=== PATIENT | female | born 2000 | race Caucasian/White ===

== ENCOUNTER 2018-05-13 14:16 | Emergency (ER) | payer MEDICAID ==
--- NOTE | 2018-05-13 14:52 | EDM.PDOC ---
ED HPI GENERAL MEDICAL PROBLEM - General Chief Complaint: ENT Problem Stated Complaint: SPOKE TO NURSE Time Seen by Provider: 05/13/18 14:48 Source of Information: Reports: Patient History Limitations: Reports: No Limitations - History of Present Illness INITIAL COMMENTS - FREE TEXT/NARRATIVE: HISTORY AND PHYSICAL: History of present illness: Patient is a 17-year-old female here with complaint of sore throat 1 week. She states she's felt pus on the right tonsil is having pain with swallowing but is able to swallow secretions and no difficulty breathing or trismus. She denies nausea, vomiting, diarrhea. She does have an appointment at [facility] tomorrow. Review of systems: As per history of present illness and below otherwise all systems reviewed and negative. Past medical history: As per history of present illness and as reviewed below otherwise noncontributory. Surgical history: As per history of present illness and as reviewed below otherwise noncontributory. Social history: No reported history of drug or alcohol abuse. Family history: As per history of present illness and as reviewed below otherwise noncontributory. Physical exam: General: Patient sitting comfortably in no acute distress and nontoxic appearing HEENT: Right tonsils is 2+ and erythematous with exudate. No uvular deviation. Tender anterior cervical LAD bilaterally. Atraumatic, normocephalic, pupils reactive, negative for conjunctival pallor or scleral icterus, mucous membranes moist, throat clear, neck supple, nontender, trachea midline. No meningeal signs. Lungs: Clear to auscultation, breath sounds equal bilaterally, chest nontender. Heart: S1S2, regular, negative for clicks, rubs, or overt murmur. Abdomen: Soft, nondistended, nontender. Negative for masses or hepatosplenomegaly. Negative for costovertebral tenderness. Pelvis: Stable nontender. Genitourinary: Deferred. Rectal: Deferred. Extremities: Atraumatic, negative for cords or calf pain. Neurovascular unremarkable. Neuro: Awake, alert, oriented. Cranial nerves II through XII unremarkable. Cerebellum unremarkable. Motor and sensory unremarkable throughout. Exam nonfocal. Notes: Diagnostics: Rapid strep Therapeutics: No Prescriptions: Penicillin Impression: Acute tonsillits Plan: 1. Take antibiotic as instructed 2. Follow up with primary care provider 3. Return to ED as needed as discussed Definitive disposition and diagnosis as appropriate pending reevaluation and review of above. throat Pain Score (Numeric/FACES): 9 - Related Data Allergies Allergy/AdvReac Type Severity Reaction Status Date / Time No Known Allergies Allergy Verified 05/13/18 14:29 Home Meds: Home Meds . [No Known Home Meds] 05/13/18 [History] Penicillin V Potassium [Veetids] 500 mg PO TID 10 Days #30 tab 05/13/18 [Rx] Past Medical History - Past Health History Medical/Surgical History: Denies Medical/Surgical History Social & Family History - Family History Family Medical History: Noncontributory - Tobacco Use Smoking Status *Q: Never Smoker - Recreational Drug Use Recreational Drug Use: No ED ROS ENT - Review of Systems Review Of Systems: ROS reveals no pertinent complaints other than HPI. ED EXAM, ENT - Physical Exam Exam: See Below (see dictation) Course - Vital Signs Last Recorded V/S: Last Vital Signs Temp 100.6 F 05/13/18 14:29 Pulse 117 H 05/13/18 14:29 Resp 16 05/13/18 14:29 BP 116/71 05/13/18 14:29 Pulse Ox 100 05/13/18 14:29 - Orders/Labs/Meds Orders: Active Orders 24 hr Category Date Time Status STREP SCRN A RAPID W CULT CONF [RM] Stat Lab 05/13/18 14:19 Ordered Departure - Departure Time of Disposition: 14:51 Disposition: Home, Self-Care 01 Condition: Good Clinical Impression: Acute tonsillitis - Discharge Information Prescriptions: Penicillin V Potassium [Veetids] 500 mg PO TID 10 Days #30 tab Forms: ED Department Discharge Additional Instructions: The following information is given to patients seen in the emergency department who are being discharged to home. This information is to outline your options for follow-up care. We provide all patients seen in our emergency department with a follow-up referral. The need for follow-up, as well as the timing and circumstances, are variable depending upon the specifics of your emergency department visit. If you don't have a primary care physician on staff, we will provide you with a referral. We always advise you to contact your personal physician following an emergency department visit to inform them of the circumstance of the visit and for follow-up with them and/or the need for any referrals to a consulting specialist. The emergency department will also refer you to a specialist when appropriate. This referral assures that you have the opportunity for follow-up care with a specialist. All of these measure are taken in an effort to provide you with optimal care, which includes your follow-up. Under all circumstances we always encourage you to contact your private physician who remains a resource for coordinating your care. When calling for follow-up care, please make the office aware that this follow-up is from your recent emergency room visit. If for any reason you are refused follow-up, please contact the [facility] Emergency Department at and asked to speak to the emergency department charge nurse. [facility] [address] [place] [id number] [facility] [address] [place] [id number] 1. Take medication as instructed 2. Follow up with primary care provider 3. Return to ED as needed as discussed - My Orders Last 24 Hours: My Active Orders 05/13/18 14:19 STREP SCRN A RAPID W CULT CONF [RM] Stat - Assessment/Plan Last 24 Hours: My Active Orders 05/13/18 14:19 STREP SCRN A RAPID W CULT CONF [RM] Stat
== END 2018-05-13 15:05 | disposition home or self-care (01) ==
LOC: MW.ED 14:16
DX: J03.90 Acute tonsillitis, unspecified (principal)
CPT/HCPCS: 87081; 87880-QW; 99283

== ENCOUNTER 2019-01-12 18:39 | Inpatient (IN) | payer OTHER ==
[2019-01-12] MEDS ORDERED: Ondansetron 4 MG/2 ML SDV IVPUSH ONE (19:00)
[2019-01-12] MEDS ORDERED: Sodium Chloride 0.9% 1,000 ML IV ONE ×2 (19:01→21:08)
--- NOTE | 2019-01-12 19:15 | EDM.PDOC ---
ED HPI GENERAL MEDICAL PROBLEM - General Chief Complaint: ENT Problem Stated Complaint: VOMMITING/FEVERS Time Seen by Provider: 01/12/19 18:41 Source of Information: Reports: Patient History Limitations: Reports: No Limitations - History of Present Illness INITIAL COMMENTS - FREE TEXT/NARRATIVE: HISTORY AND PHYSICAL: History of present illness: Patient is a 18-year-old female presents to the ED today with concern of multiple and various complaints. Patient states her main complaint today is she is having rectal bleeding and periumbilical abdominal pain that is worsened over the past 2-3 days. Patient states back in September she had a CT scan done in [place] and was told that she may or may not have ulcerative colitis. Patient states she did not follow-up with any primary care provider or any provider regarding this as "other things came up". Patient states that she has had rectal bleeding since September. Patient states she also feels dizzy when she stands up. Patient states that she also is concerned she may have a yeast infection or urinary tract infection as she is having some irritation/itching in her vagina. Patient also has had subjective fevers at home but she states she has not checked a temperature. Patient states she's also noticed a decrease in appetite but is eating and drinking some. Patient states she is nauseous but she has not vomited. Patient states there is a chance that she could be . Patient denies any other health history or any other symptoms or concerns. Patient denies chest pain, shortness of breath, or cough. Denies headache, neck stiff ness, change in vision, syncope, or near syncope. Denies vomiting, diarrhea, constipation, or dysuria. Has not noted any blood in urine. Review of systems: As per history of present illness and below otherwise all systems reviewed and negative. Past medical history: As per history of present illness and as reviewed below otherwise noncontributory. Surgical history: As per history of present illness and as reviewed below otherwise noncontributory. Social history: See social history for further information Family history: As per history of present illness and as reviewed below otherwise noncontributory. Physical exam: General: Patient is alert, oriented, and in no acute distress. Patient sitting comfortably on exam table but is pale appearing. HEENT: Atraumatic, normocephalic, pupils equal and reactive bilaterally, negative for conjunctival pallor or scleral icterus, mucous membranes moist, TMs normal bilaterally, throat clear, neck supple, nontender, trachea midline. No drooling or trismus noted. No meningeal signs. No hot potato voice noted. Lungs: Clear to auscultation, breath sounds equal bilaterally, chest nontender. Heart: S1S2, regular rate and rhythm without overt murmur Abdomen: Soft, nondistended. Moderate pain with palpation of the periumbilical area without guarding or rebound. Negative for masses or hepatosplenomegaly. Negative for costovertebral tenderness. Pelvis: Stable nontender. Genitourinary: External genitalia is grossly unremarkable. There is a moderate amount of dry/cottage cheese-like discharge in the vaginal vault. Negative cervical motion tenderness. Uterus is approximately 6 weeks in size and nontender on palpation. Rectal: Rectal tone is intact. Hemoccult positive. No obvious hemorrhoids, fissures, masses, or lesions of the rectum. Skin: Intact, warm, dry. No lesions or rashes noted. Extremities: Atraumatic, negative for cords or calf pain. Neurovascular unremarkable. Neuro: Awake, alert, oriented. Cranial nerves II through XII unremarkable. Cerebellum unremarkable. Motor and sensory unremarkable throughout. Exam nonfocal. Notes: Dr. Madrigal consulted on patient and will admit to inpatient. Voices understanding and is agreeable to plan of care. Denies any further questions or concerns at this time. Diagnostics: CBC, CMP, UA, EKG, Hemoccult, affirm, gonorrhea and Chlamydia, lipase, abdominal pelvic CT, influenza, strep, CXR Therapeutics: Saline, Zofran, Ciprofloxacin, Metronidazole Impression: Colitis Dehydration Hypokalemia Thrombocytosis Bacterial Vaginosis Yeast vaginitis Plan: 1. Admit to inpatient to Dr. Madrigal. Definitive disposition and diagnosis as appropriate pending reevaluation and review of above. throat Pain Score (Numeric/FACES): 4 - Related Data Allergies Allergy/AdvReac Type Severity Reaction Status Date / Time No Known Allergies Allergy Verified 01/12/19 18:50 Home Meds: Home Meds . [No Known Home Meds] 05/13/18 [History] Past Medical History - Past Health History Medical/Surgical History: Denies Medical/Surgical History Social & Family History - Family History Family Medical History: Noncontributory - Tobacco Use Smoking Status *Q: Never Smoker - Recreational Drug Use Recreational Drug Use: No ED ROS GENERAL - Review of Systems Review Of Systems: ROS reveals no pertinent complaints other than HPI. ED EXAM, GENERAL - Physical Exam Exam: See Below (See dictation) Course - Vital Signs Last Recorded V/S: Last Vital Signs Temp 97.6 F 01/12/19 18:46 Pulse 128 H 01/12/19 20:46 Resp 18 01/12/19 20:46 BP 119/71 01/12/19 20:46 Pulse Ox 98 01/12/19 20:46 - Orders/Labs/Meds Orders: Active Orders 24 hr Category Date Time Status Admission Status [Patient Status] [ADT] Stat ADT 01/12/19 21:29 Ordered EKG Documentation Completion [RC] STAT Care 01/12/19 19:02 Active Hemoccult [Fecal Occult Blood Collection] [RC] Care 01/12/19 19:01 Active ASDIRECTED CDIFF TOX A+B [OP] Stat Lab 01/12/19 21:28 Ordered CHLAMYDIA AND GONORRHEA BY TMA Stat Lab 01/12/19 19:40 Received CULTURE STOOL + CAMPY+SHIGATOX [RM] Stat Lab 01/12/19 21:28 Ordered CULTURE STREP A CONFIRMATION [] Stat Lab 01/12/19 19:17 Results OVA & PARASITES BY IMMUNOASSAY [MREF] Stat Lab 01/12/19 21:28 Ordered STREP SCRN A RAPID W CULT CONF [] Stat Lab 01/12/19 19:17 Results Ciprofloxacin in D5W [Cipro in D5W 400 MG/200 ML] 400 Med 01/12/19 21:30 Ordered mg Premix Bag 1 bag IV Q12H Sodium Chloride 0.9% [Normal Saline] 1,000 ml Med 01/12/19 21:08 Active IV .Bolus metroNIDAZOLE/Normal Saline [Flagyl 500 MG in NS 100 ML Med 01/12/19 21:25 Ordered ] 500 mg Premix Bag 1 bag IV ONETIME Isolation [COMM] Stat Oth 01/12/19 21:29 Ordered Medication Orders Sodium Chloride (Normal Saline) 1,000 mls @ 999 mls/hr IV .Bolus ONE Stop: 01/12/19 22:08 Last Admin: 01/12/19 21:16 Dose: 999 mls/hr Ciprofloxacin/Dextrose 400 mg/ (Premix) 200 mls @ 200 mls/hr IV Q12H DONNIE Metronidazole 500 mg/ Premix 100 mls @ 100 mls/hr IV ONETIME ONE Stop: 01/12/19 22:24 Labs: Laboratory Tests 01/12/19 01/12/19 01/12/19 Range/Units 19:13 19:15 19:15 WBC 17.25 H (4.0-11.0) K/uL RBC 5.18 (4.30-5.90) M/uL Hgb 9.3 L (12.0-16.0) g/dL Hct 31.8 L (36.0-46.0) % MCV 61.4 L (80.0-98.0) fL MCH 18.0 L (27.0-32.0) pg MCHC 29.2 L (31.0-37.0) g/dL RDW Std Deviation 37.0 (28.0-62.0) fl RDW Coeff of Buck 17 H (11.0-15.0) % Plt Count 648 H (150-400) K/uL MPV 8.80 (7.40-12.00) fL Add Manual Diff YES Neutrophils % (Manual) 25 L (48.0-80.0) % Band Neutrophils % 31 % Lymphocytes % (Manual) 30 (16.0-40.0) % Monocytes % (Manual) 10 (0.0-15.0) % Eosinophils % (Manual) 4 (0.0-7.0) % Nucleated RBC % 0.0 /100WBC Absolute Seg Neuts 4.3 (1.4-5.7) Band Neutrophils # 5.3 Lymphocytes # (Manual) 5.2 H (0.6-2.4) Monocytes # (Manual) 1.7 H (0.0-0.8) Eosinophils # (Manual) 0.7 (0.0-0.7) Nucleated RBCs # 0 K/uL Sodium 131 L (136-145) mmol/L Potassium 2.9 L (3.5-5.1) mmol/L Chloride 94 L (98-107) mmol/L Carbon Dioxide 21.7 (21.0-32.0) mmol/L BUN 10 (7.0-18.0) mg/dL Creatinine 1.1 H (0.6-1.0) mg/dL Est Cr Clr Drug Dosing 69.55 mL/min Estimated GFR (MDRD) > 60.0 ml/min Glucose 98 (74-106) mg/dL Calcium 9.2 (8.5-10.1) mg/dL Total Bilirubin 0.4 (0.2-1.0) mg/dL AST 13 L (15-37) IU/L ALT 13 L (14-63) IU/L Alkaline Phosphatase 76 (46-116) U/L Total Protein 9.3 H (6.4-8.2) g/dL Albumin 3.9 (3.4-5.0) g/dL Globulin 5.4 H (2.6-4.0) g/dL Albumin/Globulin Ratio 0.7 L (0.9-1.6) Lipase 38 L (73-393) U/L Urine Color Urine Appearance Urine pH (5.0-8.0) Ur Specific [place] (1.001-1.035) Urine Protein (NEGATIVE) mg/dL Urine Glucose (UA) (NEGATIVE) mg/dL Urine Ketones (NEGATIVE) mg/dL Urine Occult Blood (NEGATIVE) Urine Nitrite (NEGATIVE) Urine Bilirubin (NEGATIVE) Urine Ictotest Urine Urobilinogen (<2.0) EU/dL Ur Leukocyte Esterase (NEGATIVE) Urine RBC (0-2/HPF) Urine WBC (0-5/HPF) Ur Epithelial Cells (NONE-FEW) Urine Bacteria (NEGATIVE) Urine Mucus (NONE-MOD) Urine Yeast Urine HCG, Qual NEGATIVE (NEGATIVE) Rowena species DNA (NEGATIVE) Gardnerella DNA Probe (NEGATIVE) Trichomonas DNA Probe (NEGATIVE) 01/12/19 01/12/19 Range/Units 19:40 19:40 WBC (4.0-11.0) K/uL RBC (4.30-5.90) M/uL Hgb (12.0-16.0) g/dL Hct (36.0-46.0) % MCV (80.0-98.0) fL MCH (27.0-32.0) pg MCHC (31.0-37.0) g/dL RDW Std Deviation (28.0-62.0) fl RDW Coeff of Buck (11.0-15.0) % Plt Count (150-400) K/uL MPV (7.40-12.00) fL Add Manual Diff Neutrophils % (Manual) (48.0-80.0) % Band Neutrophils % % Lymphocytes % (Manual) (16.0-40.0) % Monocytes % (Manual) (0.0-15.0) % Eosinophils % (Manual) (0.0-7.0) % Nucleated RBC % /100WBC Absolute Seg Neuts (1.4-5.7) Band Neutrophils # Lymphocytes # (Manual) (0.6-2.4) Monocytes # (Manual) (0.0-0.8) Eosinophils # (Manual) (0.0-0.7) Nucleated RBCs # K/uL Sodium (136-145) mmol/L Potassium (3.5-5.1) mmol/L Chloride (98-107) mmol/L Carbon Dioxide (21.0-32.0) mmol/L BUN (7.0-18.0) mg/dL Creatinine (0.6-1.0) mg/dL Est Cr Clr Drug Dosing mL/min Estimated GFR (MDRD) ml/min Glucose (74-106) mg/dL Calcium (8.5-10.1) mg/dL Total Bilirubin (0.2-1.0) mg/dL AST (15-37) IU/L ALT (14-63) IU/L Alkaline Phosphatase (46-116) U/L Total Protein (6.4-8.2) g/dL Albumin (3.4-5.0) g/dL Globulin (2.6-4.0) g/dL Albumin/Globulin Ratio (0.9-1.6) Lipase (73-393) U/L Urine Color YELLOW Urine Appearance SLT CLOUDY Urine pH 6.0 (5.0-8.0) Ur Specific [place] >= 1.030 (1.001-1.035) Urine Protein 100 H (NEGATIVE) mg/dL Urine Glucose (UA) NEGATIVE (NEGATIVE) mg/dL Urine Ketones >=80 (NEGATIVE) mg/dL Urine Occult Blood MODERATE H (NEGATIVE) Urine Nitrite NEGATIVE (NEGATIVE) Urine Bilirubin MODERATE H (NEGATIVE) Urine Ictotest NEGATIVE Urine Urobilinogen 0.2 (<2.0) EU/dL Ur Leukocyte Esterase NEGATIVE (NEGATIVE) Urine RBC 2-4 (0-2/HPF) Urine WBC 3-6 (0-5/HPF) Ur Epithelial Cells MODERATE (NONE-FEW) Urine Bacteria FEW (NEGATIVE) Urine Mucus MODERATE (NONE-MOD) Urine Yeast RARE Urine HCG, Qual (NEGATIVE) Rowena species DNA POSITIVE H (NEGATIVE) Gardnerella DNA Probe POSITIVE H (NEGATIVE) Trichomonas DNA Probe NEGATIVE (NEGATIVE) Meds: Medications Generic Name Dose Route Start Last Admin Trade Name Freq PRN Reason Stop Dose Admin Sodium Chloride 1,000 mls @ 999 mls/hr 01/12/19 21:08 01/12/19 21:16 Normal Saline IV 01/12/19 22:08 999 mls/hr .Bolus ONE Administration Ciprofloxacin/Dextrose 400 mg/ 200 mls @ 200 mls/hr 01/12/19 21:30 Premix IV Q12H DONNIE Metronidazole 500 mg/ Premix 100 mls @ 100 mls/hr 01/12/19 21:25 IV 01/12/19 22:24 ONETIME ONE Discontinued Medications Generic Name Dose Route Start Last Admin Trade Name Freq PRN Reason Stop Dose Admin Sodium Chloride 1,000 mls @ 999 mls/hr 01/12/19 19:01 01/12/19 19:23 Normal Saline IV 01/12/19 20:01 999 mls/hr STAT ONE Administration Iopamidol 100 ml 01/12/19 20:36 01/12/19 20:38 Isovue-370 (76%) IVPUSH 01/12/19 20:37 100 ml ONETIME ONE Administration Ondansetron HCl 4 mg 01/12/19 19:00 01/12/19 19:23 Zofran IVPUSH 01/12/19 19:01 4 mg ONETIME ONE Administration Departure - Departure Time of Disposition: 21:45 Disposition: Admitted As Inpatient 64 Clinical Impression: Colitis, Dehydration, Hypokalemia, Thrombocytosis, Bacterial vaginosis, Yeast vaginitis - Discharge Information Referrals: PCP,None [Primary Care Provider] - Forms: ED Department Discharge - My Orders Last 24 Hours: My Active Orders 01/12/19 19:01 Hemoccult [Fecal Occult Blood Collection] [] ASDIRECTED 01/12/19 19:02 EKG Documentation Completion [] STAT 01/12/19 19:17 CULTURE STREP A CONFIRMATION [RM] Stat STREP SCRN A RAPID W CULT CONF [] Stat 01/12/19 19:40 CHLAMYDIA AND GONORRHEA BY TMA Stat 01/12/19 21:08 Sodium Chloride 0.9% [Normal Saline] 1,000 ml IV .Bolus 01/12/19 21:25 metroNIDAZOLE/Normal Saline [Flagyl 500 MG in NS 100 ML] 500 mg Premix Bag 1 bag IV ONETIME 01/12/19 21:28 CDIFF TOX A+B [OP] Stat CULTURE STOOL + CAMPY+SHIGATOX [RM] Stat OVA & PARASITES BY IMMUNOASSAY [MREF] Stat 01/12/19 21:29 Admission Status [Patient Status] [ADT] Stat Isolation [COMM] Stat 01/12/19 21:30 Ciprofloxacin in D5W [Cipro in D5W 400 MG/200 ML] 400 mg Premix Bag 1 bag IV Q12H - Assessment/Plan Last 24 Hours: My Active Orders 01/12/19 19:01 Hemoccult [Fecal Occult Blood Collection] [RC] ASDIRECTED 01/12/19 19:02 EKG Documentation Completion [RC] STAT 01/12/19 19:17 CULTURE STREP A CONFIRMATION [RM] Stat STREP SCRN A RAPID W CULT CONF [RM] Stat 01/12/19 19:40 CHLAMYDIA AND GONORRHEA BY TMA Stat 01/12/19 21:08 Sodium Chloride 0.9% [Normal Saline] 1,000 ml IV .Bolus 01/12/19 21:25 metroNIDAZOLE/Normal Saline [Flagyl 500 MG in NS 100 ML] 500 mg Premix Bag 1 bag IV ONETIME 01/12/19 21:28 CDIFF TOX A+B [OP] Stat CULTURE STOOL + CAMPY+SHIGATOX [RM] Stat OVA & PARASITES BY IMMUNOASSAY [MREF] Stat 01/12/19 21:29 Admission Status [Patient Status] [ADT] Stat Isolation [COMM] Stat 01/12/19 21:30 Ciprofloxacin in D5W [Cipro in D5W 400 MG/200 ML] 400 mg Premix Bag 1 bag IV Q12H
[2019-01-12 19:41] LABS: BLOOD UREA NITROGEN,BUN 10 mg/dL (7.0-18.0); CARBON DIOXIDE,CO2 21.7 mmol/L (21.0-32.0); CHLORIDE,CL 94 mmol/L (98-107); GLUCOSE RANDOM 98 mg/dL (74-106); LIPASE 38 U/L (73-393); POTASSIUM,K 2.9 mmol/L (3.5-5.1); SODIUM,NA 131 mmol/L (136-145)
[2019-01-12] MEDS ORDERED: Iopamidol 755 Mg/ML 100 ML Bottle IVPUSH ONE (20:36)
--- NOTE | 2019-01-12 20:39 | CR ---
HISTORY: Cough. TECHNIQUE: Two-view chest. COMPARISON: None. FINDINGS: Lungs are clear. No pleural effusion or pneumothorax. Pulmonary vasculature and cardiomediastinal silhouette are normal. IMPRESSION: No cardiopulmonary abnormality. Dictated by Ravindra Fay MD @ Jan 12 2019 8:33PM Signed by Dr. Ravindra Fay @ Jan 12 2019 8:37PM
--- NOTE | 2019-01-12 21:01 | CT ---
HISTORY: Periumbilical pain. Rectal bleeding. TECHNIQUE: CT abdomen and pelvis with IV contrast. COMPARISON: None. FINDINGS: Abdomen: No liver lesions. No bile duct dilation. No pancreatic mass or pancreatic duct dilation. No spleen lesions. No adrenal nodules. Kidneys enhance symmetrically. No renal mass. No hydronephrosis. Wall thickening of the sigmoid colon and rectum with prominent inner wall enhancement. Mild wall thickening of the remainder of the colon. Wall thickening of the distal ileum most prominent just proximal to the terminal ileum. No dilated bowel. Appendix is normal. No free fluid or fluid collection. No free intraperitoneal gas. No lymphadenopathy. Abdominal aorta is normal caliber. Pelvis: No lymphadenopathy. Musculoskeletal: Unremarkable. Lower chest: Unremarkable. IMPRESSION: Colitis and ileitis. Primary considerations include inflammatory bowel disease or infectious colitis and enteritis. Please note that all CT scans at this facility use dose modulation, iterative reconstruction, and/or weight-based dosing when appropriate to reduce radiation dose to as low as reasonably achievable. Dictated by Ravindra Fay MD @ Jan 12 2019 8:52PM Signed by Dr. Ravindra Fay @ Jan 12 2019 8:59PM
[2019-01-12] MEDS ORDERED: metroNIDAZOLE/Normal Saline 500 MG in Premix Bag 1 BAG IV ONE (21:25)
[2019-01-12] MEDS ORDERED: Albuterol/Ipratropium 3.0-0.5 MG/3 ML Neb Soln NEB PRN (22:06)
[2019-01-12] MEDS ORDERED: Sodium Chloride 0.9% 1,000 ML IV SCH (22:15)
[2019-01-12] MEDS ORDERED: Morphine 2 MG/ML Syringe IVPUSH PRN (22:15)
[2019-01-12] MEDS ORDERED: Potassium Chloride Riders 40 MEQ in Premix Bag 1 BAG IV ONE (22:20)
[2019-01-12] MEDS: Pantoprazole 40 MG Vial IV SCH (22:31)
[2019-01-12] MEDS: Ciprofloxacin in D5W 400 MG in Premix Bag 1 BAG IV SCH ×2 (22:48)
[2019-01-12] MEDS ORDERED: Ondansetron 4 MG/2 ML SDV IVPUSH PRN (23:23)
[2019-01-13] MEDS ORDERED: Sodium Chloride 0.9% 1,000 ML IV SCH
[2019-01-13] MEDS ORDERED: Dextrose 5%-0.9% NaCl 1,000 ML IV SCH (04:15)
[2019-01-13] MEDS ORDERED: Acetaminophen 325 MG Tab PO PRN (05:00)
[2019-01-13] MEDS ORDERED: Sodium Chloride 0.9% 1,000 ML IV ONE ×2 (06:18→10:22)
[2019-01-13 06:33] LABS: BLOOD UREA NITROGEN,BUN 6 mg/dL (7.0-18.0); CHLORIDE,CL 104 mmol/L (98-107); GLUCOSE RANDOM 95 mg/dL (74-106); POTASSIUM,K 3.6 mmol/L (3.5-5.1); SODIUM,NA 135 mmol/L (136-145)
[2019-01-13] MEDS ORDERED: 50% Dextrose in Water 50 ML Syringe IVPUSH ONE (06:50)
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
[2019-01-13] MEDS ORDERED: Magnesium Sulfate/Water 4 GM in Premix Bag 1 BAG IV ONE (07:28)
[2019-01-13] MEDS ORDERED: Iopamidol 755 MG/ML 500 ML Multipack Bottle IVPUSH STA (08:16)
--- NOTE | 2019-01-13 08:45 | CT ---
INDICATION: Periumbilical rectal bleeding; dropping hemoglobin; rule out active hemorrhage. COMPARISON: CT abdomen and pelvis with intravenous contrast January 12, 2019. TECHNIQUE: CT angio abdomen and pelvis with intravenous contrast during arterial and venous phase imaging; coronal and sagittal reformats. FINDINGS: The abdominal aorta and the visceral branches are well delineated and fail to reveal any abnormalities. No evidence of active extravasation. Diffuse edema involving the entire colon including the rectosigmoid; rule out diffuse colitis. No pneumoperitoneum or intestinal obstruction. Splenic vein, superior mesenteric vein and the portal vein are unremarkable. No focal hepatic or splenic pathology. No pancreatic pathology. Gallbladder is unremarkable. No adrenal pathology. No kidney stones or obstructive uropathy. Normal appendix. IMPRESSION: 1. Diffuse colitis. 2. No evidence of active extravasation of contrast. 3. Splenic vein, superior mesenteric vein and the portal vein are unremarkable. Please note that all CT scans at this facility use dose modulation, iterative reconstruction, and/or weight-based dosing when appropriate to reduce radiation dose to as low as reasonably achievable. Dictated by Simon Reyes MD @ Jan 13 2019 8:21AM Signed by Dr. Simon Reyes @ Jan 13 2019 8:44AM
--- NOTE | 2019-01-13 08:48 | PCM.SN ---
- Free Text/Narrative Note: pt seen, chart reviewed; gib, 2 large bore iv access, 18 +gauge, protonix, h/h q 8, transfuse to 10; no anticoag meds; strict i/o monitor urine output, will follow pt gume you, await cta results; [id number]
[2019-01-13] MEDS: Pantoprazole 40 MG Vial IV SCH ×2 (09:18→21:26)
[2019-01-13] MEDS ORDERED: FLU Vacc QS2019-20(6MOS+)/PF 60 MCG/0.5 ML SYRINGE IM ONE (10:00)
--- NOTE | 2019-01-13 10:00 | PCM.SN ---
- Free Text/Narrative Note: CTA -ve; treat colitis; tentatively schedule egd on sunday; no plan for colonoscopy during highly inflammatory state; colonoscopy 3 - 4 wks; 18 yrs old , diffuse colitis, would benefit from gi referal; transfuse to keep h/h > 10. will follow pt w you
[2019-01-13] MEDS: Ciprofloxacin in D5W 400 MG in Premix Bag 1 BAG IV SCH ×4 (10:57→21:27)
[2019-01-13] MEDS: metroNIDAZOLE/Normal Saline 500 MG in Premix Bag 1 BAG IV SCH ×2 (11:53→19:57)
[2019-01-13] MEDS: methylPREDNISolone Sodium Succinate 40 MG/1 ML SDV IVPUSH SCH (19:53)
[2019-01-13] MEDS: Sodium Chloride 0.9% 1,000 ML IV SCH (22:38)
--- NOTE | 2019-01-14 00:29 | PN ---
[facility] Physician - Brief Progress [id number]/29/2019 00:24[facility] Simin Tomlin, [place] - MWN (ROYA) - MWN EFREN HARRISDate of Service 01/14/2019 00:24HPI/Event s of Note Case discussed with hospitalist. 18 year old F with previous IBD but not on meds currently , admitted with rectal bleeding and awaiting scope by surgery. Had been anemic and was transfused PRB Cs x 3.Recs include: hemodynamic monitoring, supplemental O2 PRN, GI and DVT prophylaxis, abx/steroid s, surgery eval for endoscopy, monitor for bleeding, transfuse to maintain H+H > 7/21, replace lytes as needed, glycemic monitoring, pain control.Interventions Minor-Communication with other healthcare providers and/or family
[2019-01-14] MEDS: metroNIDAZOLE/Normal Saline 500 MG in Premix Bag 1 BAG IV SCH ×3 (03:10→19:15)
[2019-01-14] MEDS: methylPREDNISolone Sodium Succinate 40 MG/1 ML SDV IVPUSH SCH ×3 (03:10→20:33)
[2019-01-14 06:41] LABS: BLOOD UREA NITROGEN,BUN 5 mg/dL (7.0-18.0); CARBON DIOXIDE,CO2 18.6 mmol/L (21.0-32.0); CHLORIDE,CL 107 mmol/L (98-107); GLUCOSE RANDOM 92 mg/dL (74-106); POTASSIUM,K 4.1 mmol/L (3.5-5.1); SODIUM,NA 138 mmol/L (136-145)
[2019-01-14] MEDS: Sodium Chloride 0.9% 1,000 ML IV SCH ×2 (07:32→17:31)
--- NOTE | 2019-01-14 09:04 | CONS ---
DATE OF CONSULTATION: DATE OF : 2000 PRIMARY CARE PHYSICIAN: None PCP REASON FOR CONSULTATION: Consult called from the hospitalist. Concerning question is GI bleeding. HISTORY OF PRESENT ILLNESS: The patient is a 18-year-old young lady complaining of 3-1/2 days of bright red blood per rectum. Denied shortness of breath. Denied PEREZ. Denied chest pain. Denied any pain whatsoever. The patient remarked that her stool was normal color until 3-1/2 days ago and turned bright red. Denied black tarry stool. The patient also remarked that it had happened about 3 months ago out of town in [place], and the situation is not clear. She did not stay in the hospital. She somehow was told she had colitis, and she did not follow through. PAST MEDICAL HISTORY: Significant for no diabetes, MT, CVA, hypertension. PAST SURGICAL HISTORY: No abdominal surgery. No childbirth. ALLERGIES: Please refer to nursing for details. MEDICATION: Please refer to nursing for details. PHYSICAL EXAMINATION: VITAL SIGNS: Pulse rate is 121, blood pressure is 105/51, temperature is 98.7, respiratory rate is 22, saturating at 100% on room air. GENERAL: A very pleasant young lady, appropriate for her size, in no acute distress. HEENT: Normocephalic, atraumatic. Sclerae anicteric. LUNGS: Clear to auscultation. HEART: Regular rate and rhythm. ABDOMEN: Soft, nondistended. No pulsating tender midline abdominal structure. No surgical scar. No hernia. Reactive bowel sounds in all 4 quadrants. Nontender. LABORATORY DATA: Upon consultation white cell is 11.39, dropped from 17 upon admission; H and H are 9.3 upon admission, dropped to 5.8, hematocrit is 31.8, dropped to 20; platelets are 640,000 and dropped to 436,000. Potassium is 2.9, up to 3.6 the morning of consult. BUN is 6 and creatinine is 0.9. Glucose is 95. UA shows UTI with a lot of yeast infection. Positive for Rowena and Gardnerella from the UA. IMPRESSION: Gastrointestinal bleeding. Do not have black tarry stool like the lower gastrointestinal bleeding. We will start gastrointestinal bleeding protocol. Two large-bore IV access, 18-gauge and above. Strict in and out, monitor urine output, and transfuse the patient, as you are doing. With acute drop in blood, probably recommend some kind of workup, either CT angio versus tagged RBC, which is slightly more sensitive. We will follow up with you after the gastrointestinal protocol. Otherwise, transfuse as you are doing. We will follow the patient with you. As always, thank you for your kind referral. ALVERTO / MESSI /[id number]
[2019-01-14] MEDS: Pantoprazole 40 MG Vial IV SCH ×2 (09:06→21:28)
[2019-01-14] MEDS: Ciprofloxacin in D5W 400 MG in Premix Bag 1 BAG IV SCH ×4 (09:11→21:33)
[2019-01-14] MEDS ORDERED: Fluconazole 150 MG Tab PO ONE (09:16)
--- NOTE | 2019-01-14 09:17 | PN ---
SIOBHAN Physician - Brief Progress [id number]/29/2019 09:14[facility] Simin Tomlin, ROXANN - YOVANNY (ROYA) - LISAN EFREN HARRISDate of Service 01/14/2019 09:14HPI/Event s of Note Reviewed patient's case with RN. Patient to have EGD tomorrow 01/15/2019, hemoglobin is st able, and outpatient colonoscopy is ordered.Have ordered TSH and iron labs as the patient has a signi ficant absorption issue from her colitis and has been bleeding for several months. Patient's current MCV is 70.5.Of consideration is the patient's inability to absorb especially B12 vitamins etc. We w ill start the patient on liquid multivitamin when she is no longer n.p.o., consider IM B12 and supple mentation. If patient is low on iron would give the patient IV iron supplementation so that she can adequately absorb it well colitis is being controlled.Interventions Minor-Clinical assessment - order ing diagnostic tests, Communication with other healthcare providers and/or family, Routine modificati ons to care plan (e.g. PRN medications for pain, fever)
--- NOTE | 2019-01-14 11:02 | PCM.PN ---
- General Info Date of Service: 01/14/19 Subjective Update: 18 y/o female with suspected IBD and needing 3 units PRBCs due to severe blood loss. Now, hemodynamically stable. States she feels better. Denies any chest pain, dyspnea, abdominal pain. Denies any rectal bleeding. - Patient Data Vitals - Most Recent: Last Vital Signs Temp 36.2 C 01/14/19 08:00 Pulse 96 01/13/19 18:03 Resp 17 01/14/19 09:00 BP 107/72 01/14/19 09:00 Pulse Ox 100 01/14/19 09:00 Weight - Most Recent: 58.4 kg I&O - Last 24 Hours: Intake & Output 01/13/19 01/14/19 01/14/19 22:59 06:59 14:59 Intake Total 1581 920 Output Total 3100 1150 Balance -1519 -230 Lab Results Last 24 Hours: Laboratory Results - last 24 hr 01/13/19 01/13/19 01/13/19 Range/Units 03:58 04:55 06:13 WBC (4.0-11.0) K/uL RBC (4.30-5.90) M/uL Hgb (12.0-16.0) g/dL Hct (36.0-46.0) % MCV (80.0-98.0) fL MCH (27.0-32.0) pg MCHC (31.0-37.0) g/dL RDW Std Deviation (28.0-62.0) fl RDW Coeff of Buck (11.0-15.0) % Plt Count (150-400) K/uL MPV (7.40-12.00) fL Neut % (Auto) Lymph % (Auto) [place] % (Auto) Eos % (Auto) Baso % (Auto) Neut # (Auto) Lymph # (Auto) [place] # (Auto) Eos # (Auto) Baso # (Auto) Add Manual Diff Neutrophils % (Manual) (48.0-80.0) % Band Neutrophils % % Lymphocytes % (Manual) (16.0-40.0) % Monocytes % (Manual) (0.0-15.0) % Nucleated RBC % /100WBC Absolute Seg Neuts (1.4-5.7) Band Neutrophils # Lymphocytes # (Manual) (0.6-2.4) Monocytes # (Manual) (0.0-0.8) Nucleated RBCs # K/uL Hypochromasia Sodium (136-145) mmol/L Potassium (3.5-5.1) mmol/L Chloride (98-107) mmol/L Carbon Dioxide (21.0-32.0) mmol/L BUN (7.0-18.0) mg/dL Creatinine (0.6-1.0) mg/dL Est Cr Clr Drug Dosing mL/min Estimated GFR (MDRD) ml/min Glucose (74-106) mg/dL POC Glucose 65 88 90 (60-110) mg/dL Calcium (8.5-10.1) mg/dL Phosphorus (2.6-4.7) mg/dL Magnesium (1.8-2.4) mg/dL Iron (50-175) ug/dL TIBC (250-450) ug/dL % Saturation (20-55) % Total Bilirubin (0.2-1.0) mg/dL AST (15-37) IU/L ALT (14-63) IU/L Alkaline Phosphatase (46-116) U/L C-Reactive Protein (0.00-0.90) mg/dL Total Protein (6.4-8.2) g/dL Albumin (3.4-5.0) g/dL Globulin (2.6-4.0) g/dL Albumin/Globulin Ratio (0.9-1.6) Blood Type Antibody Screen Crossmatch 01/13/19 01/13/19 01/13/19 Range/Units 06:50 07:06 15:51 WBC (4.0-11.0) K/uL RBC (4.30-5.90) M/uL Hgb 9.1 L (12.0-16.0) g/dL Hct (36.0-46.0) % MCV (80.0-98.0) fL MCH (27.0-32.0) pg MCHC (31.0-37.0) g/dL RDW Std Deviation (28.0-62.0) fl RDW Coeff of Buck (11.0-15.0) % Plt Count (150-400) K/uL MPV (7.40-12.00) fL Neut % (Auto) Lymph % (Auto) [place] % (Auto) Eos % (Auto) Baso % (Auto) Neut # (Auto) Lymph # (Auto) [place] # (Auto) Eos # (Auto) Baso # (Auto) Add Manual Diff Neutrophils % (Manual) (48.0-80.0) % Band Neutrophils % % Lymphocytes % (Manual) (16.0-40.0) % Monocytes % (Manual) (0.0-15.0) % Nucleated RBC % /100WBC Absolute Seg Neuts (1.4-5.7) Band Neutrophils # Lymphocytes # (Manual) (0.6-2.4) Monocytes # (Manual) (0.0-0.8) Nucleated RBCs # K/uL Hypochromasia Sodium (136-145) mmol/L Potassium (3.5-5.1) mmol/L Chloride (98-107) mmol/L Carbon Dioxide (21.0-32.0) mmol/L BUN (7.0-18.0) mg/dL Creatinine (0.6-1.0) mg/dL Est Cr Clr Drug Dosing mL/min Estimated GFR (MDRD) ml/min Glucose (74-106) mg/dL POC Glucose 79 (60-110) mg/dL Calcium (8.5-10.1) mg/dL Phosphorus (2.6-4.7) mg/dL Magnesium (1.8-2.4) mg/dL Iron (50-175) ug/dL TIBC (250-450) ug/dL % Saturation (20-55) % Total Bilirubin (0.2-1.0) mg/dL AST (15-37) IU/L ALT (14-63) IU/L Alkaline Phosphatase (46-116) U/L C-Reactive Protein (0.00-0.90) mg/dL Total Protein (6.4-8.2) g/dL Albumin (3.4-5.0) g/dL Globulin (2.6-4.0) g/dL Albumin/Globulin Ratio (0.9-1.6) Blood Type O NEGATIVE Antibody Screen NEGATIVE Crossmatch See Detail 01/13/19 01/13/19 01/14/19 Range/Units 21:09 21:25 05:59 WBC 13.73 H (4.0-11.0) K/uL RBC 5.18 (4.30-5.90) M/uL Hgb 10.5 L 11.6 L (12.0-16.0) g/dL Hct 36.5 (36.0-46.0) % MCV 70.5 L (80.0-98.0) fL MCH 22.4 L (27.0-32.0) pg MCHC 31.8 (31.0-37.0) g/dL RDW Std Deviation 54.9 (28.0-62.0) fl RDW Coeff of Buck 22 H (11.0-15.0) % Plt Count 399 (150-400) K/uL MPV 9.30 (7.40-12.00) fL Neut % (Auto) CHIEF INVESTIGATOR Lymph % (Auto) CHIEF INVESTIGATOR [place] % (Auto) CHIEF INVESTIGATOR Eos % (Auto) CHIEF INVESTIGATOR Baso % (Auto) CHIEF INVESTIGATOR Neut # (Auto) CHIEF INVESTIGATOR Lymph # (Auto) CHIEF INVESTIGATOR [place] # (Auto) CHIEF INVESTIGATOR Eos # (Auto) CHIEF INVESTIGATOR Baso # (Auto) CHIEF INVESTIGATOR Add Manual Diff YES Neutrophils % (Manual) 68 (48.0-80.0) % Band Neutrophils % 24 % Lymphocytes % (Manual) 6 L (16.0-40.0) % Monocytes % (Manual) 2 (0.0-15.0) % Nucleated RBC % 0.0 /100WBC Absolute Seg Neuts 9.3 H (1.4-5.7) Band Neutrophils # 3.3 Lymphocytes # (Manual) 0.8 (0.6-2.4) Monocytes # (Manual) 0.3 (0.0-0.8) Nucleated RBCs # 0 K/uL Hypochromasia 1+ SLIGHT Sodium (136-145) mmol/L Potassium (3.5-5.1) mmol/L Chloride (98-107) mmol/L Carbon Dioxide (21.0-32.0) mmol/L BUN (7.0-18.0) mg/dL Creatinine (0.6-1.0) mg/dL Est Cr Clr Drug Dosing mL/min Estimated GFR (MDRD) ml/min Glucose (74-106) mg/dL POC Glucose 74 (60-110) mg/dL Calcium (8.5-10.1) mg/dL Phosphorus (2.6-4.7) mg/dL Magnesium (1.8-2.4) mg/dL Iron (50-175) ug/dL TIBC (250-450) ug/dL % Saturation (20-55) % Total Bilirubin (0.2-1.0) mg/dL AST (15-37) IU/L ALT (14-63) IU/L Alkaline Phosphatase (46-116) U/L C-Reactive Protein (0.00-0.90) mg/dL Total Protein (6.4-8.2) g/dL Albumin (3.4-5.0) g/dL Globulin (2.6-4.0) g/dL Albumin/Globulin Ratio (0.9-1.6) Blood Type Antibody Screen Crossmatch 01/14/19 01/14/19 01/14/19 Range/Units 05:59 05:59 05:59 WBC (4.0-11.0) K/uL RBC (4.30-5.90) M/uL Hgb (12.0-16.0) g/dL Hct (36.0-46.0) % MCV (80.0-98.0) fL MCH (27.0-32.0) pg MCHC (31.0-37.0) g/dL RDW Std Deviation (28.0-62.0) fl RDW Coeff of Buck (11.0-15.0) % Plt Count (150-400) K/uL MPV (7.40-12.00) fL Neut % (Auto) Lymph % (Auto) [place] % (Auto) Eos % (Auto) Baso % (Auto) Neut # (Auto) Lymph # (Auto) [place] # (Auto) Eos # (Auto) Baso # (Auto) Add Manual Diff Neutrophils % (Manual) (48.0-80.0) % Band Neutrophils % % Lymphocytes % (Manual) (16.0-40.0) % Monocytes % (Manual) (0.0-15.0) % Nucleated RBC % /100WBC Absolute Seg Neuts (1.4-5.7) Band Neutrophils # Lymphocytes # (Manual) (0.6-2.4) Monocytes # (Manual) (0.0-0.8) Nucleated RBCs # K/uL Hypochromasia Sodium 138 (136-145) mmol/L Potassium 4.1 (3.5-5.1) mmol/L Chloride 107 (98-107) mmol/L Carbon Dioxide 18.6 L (21.0-32.0) mmol/L BUN 5 L (7.0-18.0) mg/dL Creatinine 0.9 (0.6-1.0) mg/dL Est Cr Clr Drug Dosing 86.73 mL/min Estimated GFR (MDRD) > 60.0 ml/min Glucose 92 (74-106) mg/dL POC Glucose 83 (60-110) mg/dL Calcium 8.2 L (8.5-10.1) mg/dL Phosphorus 3.7 (2.6-4.7) mg/dL Magnesium 1.8 (1.8-2.4) mg/dL Iron 14 L (50-175) ug/dL TIBC 287 (250-450) ug/dL % Saturation 4.88 L (20-55) % Total Bilirubin 0.3 (0.2-1.0) mg/dL AST 11 L (15-37) IU/L ALT 11 L (14-63) IU/L Alkaline Phosphatase 94 (46-116) U/L C-Reactive Protein 10.80 H (0.00-0.90) mg/dL Total Protein 7.0 (6.4-8.2) g/dL Albumin 2.8 L (3.4-5.0) g/dL Globulin 4.2 H (2.6-4.0) g/dL Albumin/Globulin Ratio 0.7 L (0.9-1.6) Blood Type Antibody Screen Crossmatch Rohit Results Last 24 Hours: Microbiology 01/13/19 04:25 Cryptosporidium/Giardia - Final Stool / Feces 01/12/19 19:17 Quick Strep Confirmation Culture - Final Throat NO GROUP A STREP ISOLATED REFERENCE RANGE: NEGATIVE Group A Streptococcus Rapid Screen - Final NEGATIVE STREP A SCREEN REFERENCE RANGE: NEGATIVE 01/13/19 04:25 Campylobacter Antigen Assay - Final Stool / Feces NEGATIVE CAMPYLOBACTER AG REFERENCE RANGE: NEGATIVE Shiga Toxin I - Final NEGATIVE FOR SHIGA TOXIN 1 REFERENCE RANGE: NEGATIVE Shiga Toxin II - Final NEGATIVE FOR SHIGA TOXIN 2 REFERENCE RANGE: NEGATIVE Med Orders - Current: Current Medications Acetaminophen (Tylenol) 325 mg PO Q4H PRN PRN Reason: Fever Last Admin: 01/13/19 05:16 Dose: 325 mg Albuterol/Ipratropium (Duoneb 3.0-0.5 Mg/3 Ml) 3 ml NEB Q4HRRT PRN PRN Reason: Shortness Of Breath/wheezing Ciprofloxacin/Dextrose 400 mg/ (Premix) 200 mls @ 200 mls/hr IV Q12H [facility] Last Admin: 01/14/19 09:11 Dose: 200 mls/hr Dextrose/Sodium Chloride (Dextrose 5%-Normal Saline) 1,000 mls @ 125 mls/hr IV ASDIRECTED [facility] Last Admin: 01/13/19 04:23 Dose: 125 mls/hr Lactated Ringer's (Ringers, Lactated) 1,000 mls @ 125 mls/hr IV ASDIRECTED [facility] Metronidazole 500 mg/ Premix 100 mls @ 100 mls/hr IV Q8H [facility] Last Admin: 01/14/19 03:10 Dose: 100 mls/hr Sodium Chloride (Normal Saline) 1,000 mls @ 125 mls/hr IV ASDIRECTED [facility] Last Admin: 01/14/19 07:32 Dose: 125 mls/hr Methylprednisolone Sodium Succinate (Solu-Medrol) 20 mg IVPUSH Q8H [facility] Last Admin: 01/14/19 03:10 Dose: 20 mg Morphine Sulfate (Morphine) 1 mg IVPUSH Q4H PRN PRN Reason: Abdominal Pain Ondansetron HCl (Zofran) 4 mg IVPUSH Q4H PRN PRN Reason: Nausea/Vomiting Pantoprazole Sodium (Protonix Iv) 40 mg IV Q12HR [facility] Last Admin: 01/14/19 09:06 Dose: 40 mg Discontinued Medications Dextrose/Water (Dextrose 50% In Water) 50 ml IVPUSH ONETIME ONE Stop: 01/13/19 06:51 Last Admin: 01/13/19 07:03 Dose: 50 ml Fluconazole (Diflucan) 150 mg PO ONETIME ONE Stop: 01/14/19 09:17 Last Admin: 01/14/19 09:36 Dose: 150 mg Sodium Chloride (Normal Saline) 1,000 mls @ 999 mls/hr IV STAT ONE Stop: 01/12/19 20:01 Last Admin: 01/12/19 19:23 Dose: 999 mls/hr Sodium Chloride (Normal Saline) 1,000 mls @ 999 mls/hr IV .Bolus ONE Stop: 01/12/19 22:08 Last Admin: 01/12/19 21:16 Dose: 999 mls/hr Metronidazole 500 mg/ Premix 100 mls @ 100 mls/hr IV ONETIME ONE Stop: 01/12/19 22:24 Last Admin: 01/12/19 21:50 Dose: 100 mls/hr Sodium Chloride (Normal Saline) 1,000 mls @ 999 mls/hr IV BOLUS DONNIE Last Admin: 01/13/19 00:08 Dose: 999 mls/hr Sodium Chloride (Normal Saline) 1,000 mls @ 150 mls/hr IV ASDIRECTED DONNIE Last Admin: 01/13/19 01:58 Dose: 125 mls/hr Potassium Chloride 40 meq/ (Premix) 0 mls @ 25 mls/hr IV ONETIME ONE Stop: 01/12/19 22:21 Last Admin: 01/12/19 23:00 Dose: 25 mls/hr Sodium Chloride (Normal Saline) 1,000 mls @ 999 mls/hr IV ONETIME ONE Stop: 01/13/19 07:18 Last Admin: 01/13/19 06:24 Dose: 999 mls/hr Magnesium Sulfate 4 gm/ Premix 100 mls @ 50 mls/hr IV ONETIME ONE Stop: 01/13/19 09:27 Last Admin: 01/13/19 09:12 Dose: 50 mls/hr Sodium Chloride (Normal Saline) 1,000 mls @ 999 mls/hr IV .Bolus ONE Stop: 01/13/19 11:22 Last Admin: 01/13/19 10:56 Dose: 999 mls/hr Influenza Virus Vaccine (Fluzone Quad 8927-8323 Syringe) 60 mcg IM .ONCE ONE Stop: 01/13/19 10:01 Iopamidol (Isovue-370 (76%)) 100 ml IVPUSH ONETIME ONE Stop: 01/12/19 20:37 Last Admin: 01/12/19 20:38 Dose: 100 ml Iopamidol (Isovue Multipack-370 (76%)) 100 ml IVPUSH ONETIME STA Stop: 01/13/19 08:17 Last Admin: 01/13/19 08:16 Dose: 100 ml Ondansetron HCl (Zofran) 4 mg IVPUSH ONETIME ONE Stop: 01/12/19 19:01 Last Admin: 01/12/19 19:23 Dose: 4 mg - Exam General: Alert, Oriented, Cooperative, No Acute Distress Lungs: Clear to Auscultation, Normal Respiratory Effort Cardiovascular: Regular Rate, Regular Rhythm, No Murmurs GI/Abdominal Exam: Normal Bowel Sounds, Soft, Non-Tender, No Distention Extremities: Normal Inspection, Non-Tender, No Pedal Edema Skin: Warm, Dry - Problem List Review Problem List Initiated/Reviewed/Updated: Yes - My Orders Last 24 Hours: My Active Orders 01/13/19 09:58 Consult to Physician [CONS] Routine 01/13/19 09:59 Notify Provider Consults [RC] ASDIRECTED 01/13/19 11:15 metroNIDAZOLE/Normal Saline [Flagyl 500 MG in NS 100 ML] 500 mg Premix Bag 1 bag IV Q8H 01/13/19 11:33 CALPROTECTIN, FECAL Routine 01/13/19 16:48 Transfuse Red Blood Cells [COMM] Routine 01/13/19 20:00 methylPREDNISolone Sod Succ [Solu-MEDROL] 20 mg IVPUSH Q8H 01/14/19 13:00 HEMOGLOBIN [HEME] Q8H 01/15/19 05:11 CRP [C-REACTIVE PROTEIN] [CHEM] AM - Plan Plan:: A: 1. Acute blood loss anemia 2/2 suspected IBD s/p 3 units PRBCs 2. Elevated CRP due to above P: Patient is currently hemodynamically stable s/p 3 units PRBCs. Will continue to monitor for rectal bleeding. Continue H/H q8H. Pantoprazole 40 mg IV Q12H. Continue methylprednisolone 20 mg IV Q8H. Continue NS 125 ml/hr. Will start clear liquids today and NPO after midnight for planned upper EGD tomorrow by Dr. Adams. Dispo: 1-2 days.
[2019-01-14] MEDS ORDERED: FERRIC CARBOXYMALTOSE 750 MG/15 ML IVPUSH ONE (11:49)
--- NOTE | 2019-01-14 18:05 | PCM.SURGPN ---
- General Info Date of Service: 01/14/19 Functional Status: Reports: Pain Controlled Pain Score: 0 - Review of Systems General: Reports: No Symptoms (had BM yesterday, not black and tarry) - Patient Data Vitals - Most Recent: Last Vital Signs Temp 97.7 F 01/14/19 17:00 Pulse 96 01/13/19 18:03 Resp 16 01/14/19 17:00 BP 105/65 01/14/19 17:00 Pulse Ox 100 01/14/19 17:00 Weight - Most Recent: 128 lb 11.999 oz I&O - Last 24 Hours: Intake & Output 01/14/19 01/14/19 01/14/19 06:59 14:59 22:59 Intake Total 517 787 5519 Output Total 1150 500 Balance -655 925 [id number] Lab Results Last 24 Hrs: Laboratory Results - last 24 hr 01/12/19 01/13/19 01/13/19 Range/Units 19:40 03:58 04:55 WBC (4.0-11.0) K/uL RBC (4.30-5.90) M/uL Hgb (12.0-16.0) g/dL Hct (36.0-46.0) % MCV (80.0-98.0) fL MCH (27.0-32.0) pg MCHC (31.0-37.0) g/dL RDW Std Deviation (28.0-62.0) fl RDW Coeff of Buck (11.0-15.0) % Plt Count (150-400) K/uL MPV (7.40-12.00) fL Neut % (Auto) Lymph % (Auto) [place] % (Auto) Eos % (Auto) Baso % (Auto) Neut # (Auto) Lymph # (Auto) [place] # (Auto) Eos # (Auto) Baso # (Auto) Add Manual Diff Neutrophils % (Manual) (48.0-80.0) % Band Neutrophils % % Lymphocytes % (Manual) (16.0-40.0) % Monocytes % (Manual) (0.0-15.0) % Nucleated RBC % /100WBC Absolute Seg Neuts (1.4-5.7) Band Neutrophils # Lymphocytes # (Manual) (0.6-2.4) Monocytes # (Manual) (0.0-0.8) Nucleated RBCs # K/uL Hypochromasia Sodium (136-145) mmol/L Potassium (3.5-5.1) mmol/L Chloride (98-107) mmol/L Carbon Dioxide (21.0-32.0) mmol/L BUN (7.0-18.0) mg/dL Creatinine (0.6-1.0) mg/dL Est Cr Clr Drug Dosing mL/min Estimated GFR (MDRD) ml/min Glucose (74-106) mg/dL POC Glucose 65 88 (60-110) mg/dL Calcium (8.5-10.1) mg/dL Phosphorus (2.6-4.7) mg/dL Magnesium (1.8-2.4) mg/dL Iron (50-175) ug/dL TIBC (250-450) ug/dL % Saturation (20-55) % Total Bilirubin (0.2-1.0) mg/dL AST (15-37) IU/L ALT (14-63) IU/L Alkaline Phosphatase (46-116) U/L C-Reactive Protein (0.00-0.90) mg/dL Total Protein (6.4-8.2) g/dL Albumin (3.4-5.0) g/dL Globulin (2.6-4.0) g/dL Albumin/Globulin Ratio (0.9-1.6) Chlamydia/GC Source GENITAL C.trachomatis RNA (TMA) Negative (Negative) N.gonorrhoeae RNA (TMA) Negative (Negative) Crossmatch 01/13/19 01/13/19 01/13/19 Range/Units 06:13 06:50 07:06 WBC (4.0-11.0) K/uL RBC (4.30-5.90) M/uL Hgb (12.0-16.0) g/dL Hct (36.0-46.0) % MCV (80.0-98.0) fL MCH (27.0-32.0) pg MCHC (31.0-37.0) g/dL RDW Std Deviation (28.0-62.0) fl RDW Coeff of Buck (11.0-15.0) % Plt Count (150-400) K/uL MPV (7.40-12.00) fL Neut % (Auto) Lymph % (Auto) [place] % (Auto) Eos % (Auto) Baso % (Auto) Neut # (Auto) Lymph # (Auto) [place] # (Auto) Eos # (Auto) Baso # (Auto) Add Manual Diff Neutrophils % (Manual) (48.0-80.0) % Band Neutrophils % % Lymphocytes % (Manual) (16.0-40.0) % Monocytes % (Manual) (0.0-15.0) % Nucleated RBC % /100WBC Absolute Seg Neuts (1.4-5.7) Band Neutrophils # Lymphocytes # (Manual) (0.6-2.4) Monocytes # (Manual) (0.0-0.8) Nucleated RBCs # K/uL Hypochromasia Sodium (136-145) mmol/L Potassium (3.5-5.1) mmol/L Chloride (98-107) mmol/L Carbon Dioxide (21.0-32.0) mmol/L BUN (7.0-18.0) mg/dL Creatinine (0.6-1.0) mg/dL Est Cr Clr Drug Dosing mL/min Estimated GFR (MDRD) ml/min Glucose (74-106) mg/dL POC Glucose 90 79 (60-110) mg/dL Calcium (8.5-10.1) mg/dL Phosphorus (2.6-4.7) mg/dL Magnesium (1.8-2.4) mg/dL Iron (50-175) ug/dL TIBC (250-450) ug/dL % Saturation (20-55) % Total Bilirubin (0.2-1.0) mg/dL AST (15-37) IU/L ALT (14-63) IU/L Alkaline Phosphatase (46-116) U/L C-Reactive Protein (0.00-0.90) mg/dL Total Protein (6.4-8.2) g/dL Albumin (3.4-5.0) g/dL Globulin (2.6-4.0) g/dL Albumin/Globulin Ratio (0.9-1.6) Chlamydia/GC Source C.trachomatis RNA (TMA) (Negative) N.gonorrhoeae RNA (TMA) (Negative) Crossmatch See Detail 10/28/19 10/28/19 10/29/19 Range/Units 21:09 21:25 05:59 WBC 13.73 H (4.0-11.0) K/uL RBC 5.18 (4.30-5.90) M/uL Hgb 10.5 L 11.6 L (12.0-16.0) g/dL Hct 36.5 (36.0-46.0) % MCV 70.5 L (80.0-98.0) fL MCH 22.4 L (27.0-32.0) pg MCHC 31.8 (31.0-37.0) g/dL RDW Std Deviation 54.9 (28.0-62.0) fl RDW Coeff of Buck 22 H (11.0-15.0) % Plt Count 399 (150-400) K/uL MPV 9.30 (7.40-12.00) fL Neut % (Auto) [employer] Lymph % (Auto) AOC [employer]ER [place] % (Auto) AOC [employer] Eos % (Auto) AOC [employer] Baso % (Auto) AOC [employer] Neut # (Auto) AOC [employer] Lymph # (Auto) AOC [employer] OFF[employer]ER [place] # (Auto) AOC [employer]ER Eos # (Auto) AOC [employer]ER Baso # (Auto) AOC [employer] OFFICER Add Manual Diff YES Neutrophils % (Manual) 68 (48.0-80.0) % Band Neutrophils % 24 % Lymphocytes % (Manual) 6 L (16.0-40.0) % Monocytes % (Manual) 2 (0.0-15.0) % Nucleated RBC % 0.0 /100WBC Absolute Seg Neuts 9.3 H (1.4-5.7) Band Neutrophils # 3.3 Lymphocytes # (Manual) 0.8 (0.6-2.4) Monocytes # (Manual) 0.3 (0.0-0.8) Nucleated RBCs # 0 K/uL Hypochromasia 1+ SLIGHT Sodium (136-145) mmol/L Potassium (3.5-5.1) mmol/L Chloride (98-107) mmol/L Carbon Dioxide (21.0-32.0) mmol/L BUN (7.0-18.0) mg/dL Creatinine (0.6-1.0) mg/dL Est Cr Clr Drug Dosing mL/min Estimated GFR (MDRD) ml/min Glucose (74-106) mg/dL POC Glucose 74 (60-110) mg/dL Calcium (8.5-10.1) mg/dL Phosphorus (2.6-4.7) mg/dL Magnesium (1.8-2.4) mg/dL Iron (50-175) ug/dL TIBC (250-450) ug/dL % Saturation (20-55) % Total Bilirubin (0.2-1.0) mg/dL AST (15-37) IU/L ALT (14-63) IU/L Alkaline Phosphatase (46-116) U/L C-Reactive Protein (0.00-0.90) mg/dL Total Protein (6.4-8.2) g/dL Albumin (3.4-5.0) g/dL Globulin (2.6-4.0) g/dL Albumin/Globulin Ratio (0.9-1.6) Chlamydia/GC Source C.trachomatis RNA (TMA) (Negative) N.gonorrhoeae RNA (TMA) (Negative) Crossmatch 01/14/19 01/14/19 01/14/19 Range/Units 05:59 05:59 05:59 WBC (4.0-11.0) K/uL RBC (4.30-5.90) M/uL Hgb (12.0-16.0) g/dL Hct (36.0-46.0) % MCV (80.0-98.0) fL MCH (27.0-32.0) pg MCHC (31.0-37.0) g/dL RDW Std Deviation (28.0-62.0) fl RDW Coeff of Buck (11.0-15.0) % Plt Count (150-400) K/uL MPV (7.40-12.00) fL Neut % (Auto) Lymph % (Auto) [place] % (Auto) Eos % (Auto) Baso % (Auto) Neut # (Auto) Lymph # (Auto) [place] # (Auto) Eos # (Auto) Baso # (Auto) Add Manual Diff Neutrophils % (Manual) (48.0-80.0) % Band Neutrophils % % Lymphocytes % (Manual) (16.0-40.0) % Monocytes % (Manual) (0.0-15.0) % Nucleated RBC % /100WBC Absolute Seg Neuts (1.4-5.7) Band Neutrophils # Lymphocytes # (Manual) (0.6-2.4) Monocytes # (Manual) (0.0-0.8) Nucleated RBCs # K/uL Hypochromasia Sodium 138 (136-145) mmol/L Potassium 4.1 (3.5-5.1) mmol/L Chloride 107 (98-107) mmol/L Carbon Dioxide 18.6 L (21.0-32.0) mmol/L BUN 5 L (7.0-18.0) mg/dL Creatinine 0.9 (0.6-1.0) mg/dL Est Cr Clr Drug Dosing 86.73 mL/min Estimated GFR (MDRD) > 60.0 ml/min Glucose 92 (74-106) mg/dL POC Glucose 83 (60-110) mg/dL Calcium 8.2 L (8.5-10.1) mg/dL Phosphorus 3.7 (2.6-4.7) mg/dL Magnesium 1.8 (1.8-2.4) mg/dL Iron 14 L (50-175) ug/dL TIBC 287 (250-450) ug/dL % Saturation 4.88 L (20-55) % Total Bilirubin 0.3 (0.2-1.0) mg/dL AST 11 L (15-37) IU/L ALT 11 L (14-63) IU/L Alkaline Phosphatase 94 (46-116) U/L C-Reactive Protein 10.80 H (0.00-0.90) mg/dL Total Protein 7.0 (6.4-8.2) g/dL Albumin 2.8 L (3.4-5.0) g/dL Globulin 4.2 H (2.6-4.0) g/dL Albumin/Globulin Ratio 0.7 L (0.9-1.6) Chlamydia/GC Source C.trachomatis RNA (TMA) (Negative) N.gonorrhoeae RNA (TMA) (Negative) Crossmatch 01/14/19 Range/Units 13:16 WBC (4.0-11.0) K/uL RBC (4.30-5.90) M/uL Hgb 11.9 L (12.0-16.0) g/dL Hct (36.0-46.0) % MCV (80.0-98.0) fL MCH (27.0-32.0) pg MCHC (31.0-37.0) g/dL RDW Std Deviation (28.0-62.0) fl RDW Coeff of Buck (11.0-15.0) % Plt Count (150-400) K/uL MPV (7.40-12.00) fL Neut % (Auto) Lymph % (Auto) [place] % (Auto) Eos % (Auto) Baso % (Auto) Neut # (Auto) Lymph # (Auto) [place] # (Auto) Eos # (Auto) Baso # (Auto) Add Manual Diff Neutrophils % (Manual) (48.0-80.0) % Band Neutrophils % % Lymphocytes % (Manual) (16.0-40.0) % Monocytes % (Manual) (0.0-15.0) % Nucleated RBC % /100WBC Absolute Seg Neuts (1.4-5.7) Band Neutrophils # Lymphocytes # (Manual) (0.6-2.4) Monocytes # (Manual) (0.0-0.8) Nucleated RBCs # K/uL Hypochromasia Sodium (136-145) mmol/L Potassium (3.5-5.1) mmol/L Chloride (98-107) mmol/L Carbon Dioxide (21.0-32.0) mmol/L BUN (7.0-18.0) mg/dL Creatinine (0.6-1.0) mg/dL Est Cr Clr Drug Dosing mL/min Estimated GFR (MDRD) ml/min Glucose (74-106) mg/dL POC Glucose (60-110) mg/dL Calcium (8.5-10.1) mg/dL Phosphorus (2.6-4.7) mg/dL Magnesium (1.8-2.4) mg/dL Iron (50-175) ug/dL TIBC (250-450) ug/dL % Saturation (20-55) % Total Bilirubin (0.2-1.0) mg/dL AST (15-37) IU/L ALT (14-63) IU/L Alkaline Phosphatase (46-116) U/L C-Reactive Protein (0.00-0.90) mg/dL Total Protein (6.4-8.2) g/dL Albumin (3.4-5.0) g/dL Globulin (2.6-4.0) g/dL Albumin/Globulin Ratio (0.9-1.6) Chlamydia/GC Source C.trachomatis RNA (TMA) (Negative) N.gonorrhoeae RNA (TMA) (Negative) Crossmatch Rohit Results Last 24 Hrs: Microbiology 01/13/19 04:25 Cryptosporidium/Giardia - Final Stool / Feces 01/12/19 19:17 Quick Strep Confirmation Culture - Final Throat NO GROUP A STREP ISOLATED REFERENCE RANGE: NEGATIVE Group A Streptococcus Rapid Screen - Final NEGATIVE STREP A SCREEN REFERENCE RANGE: NEGATIVE 01/13/19 04:25 Campylobacter Antigen Assay - Final Stool / Feces NEGATIVE CAMPYLOBACTER AG REFERENCE RANGE: NEGATIVE Shiga Toxin I - Final NEGATIVE FOR SHIGA TOXIN 1 REFERENCE RANGE: NEGATIVE Shiga Toxin II - Final NEGATIVE FOR SHIGA TOXIN 2 REFERENCE RANGE: NEGATIVE Med Orders - Current: Current Medications Acetaminophen (Tylenol) 325 mg PO Q4H PRN PRN Reason: Fever Last Admin: 01/13/19 05:16 Dose: 325 mg Albuterol/Ipratropium (Duoneb 3.0-0.5 Mg/3 Ml) 3 ml NEB Q4HRRT PRN PRN Reason: Shortness Of Breath/wheezing Ciprofloxacin/Dextrose 400 mg/ (Premix) 200 mls @ 200 mls/hr IV Q12H [facility] Last Admin: 01/14/19 09:11 Dose: 200 mls/hr Dextrose/Sodium Chloride (Dextrose 5%-Normal Saline) 1,000 mls @ 125 mls/hr IV ASDIRECTED [facility] Last Admin: 01/13/19 04:23 Dose: 125 mls/hr Lactated Ringer's (Ringers, Lactated) 1,000 mls @ 125 mls/hr IV ASDIRECTED [facility] Metronidazole 500 mg/ Premix 100 mls @ 100 mls/hr IV Q8H [facility] Last Admin: 01/14/19 11:54 Dose: 100 mls/hr Sodium Chloride (Normal Saline) 1,000 mls @ 125 mls/hr IV ASDIRECTED [facility] Last Admin: 01/14/19 17:31 Dose: 125 mls/hr Ferric Carboxymaltose 750 mg/ (Sodium Chloride) 115 mls @ 460 mls/hr IV ONETIME [facility] Last Admin: 01/14/19 12:23 Dose: 460 mls/hr Methylprednisolone Sodium Succinate (Solu-Medrol) 20 mg IVPUSH Q8H [facility] Last Admin: 01/14/19 11:54 Dose: 20 mg Morphine Sulfate (Morphine) 1 mg IVPUSH Q4H PRN PRN Reason: Abdominal Pain Ondansetron HCl (Zofran) 4 mg IVPUSH Q4H PRN PRN Reason: Nausea/Vomiting Pantoprazole Sodium (Protonix Iv) 40 mg IV Q12HR [facility] Last Admin: 01/14/19 09:06 Dose: 40 mg Discontinued Medications Dextrose/Water (Dextrose 50% In Water) 50 ml IVPUSH ONETIME ONE Stop: 01/13/19 06:51 Last Admin: 01/13/19 07:03 Dose: 50 ml Fluconazole (Diflucan) 150 mg PO ONETIME ONE Stop: 01/14/19 09:17 Last Admin: 01/14/19 09:36 Dose: 150 mg Sodium Chloride (Normal Saline) 1,000 mls @ 999 mls/hr IV STAT ONE Stop: 01/12/19 20:01 Last Admin: 01/12/19 19:23 Dose: 999 mls/hr Sodium Chloride (Normal Saline) 1,000 mls @ 999 mls/hr IV .Bolus ONE Stop: 01/12/19 22:08 Last Admin: 01/12/19 21:16 Dose: 999 mls/hr Metronidazole 500 mg/ Premix 100 mls @ 100 mls/hr IV ONETIME ONE Stop: 01/12/19 22:24 Last Admin: 01/12/19 21:50 Dose: 100 mls/hr Sodium Chloride (Normal Saline) 1,000 mls @ 999 mls/hr IV BOLUS [facility] Last Admin: 01/13/19 00:08 Dose: 999 mls/hr Sodium Chloride (Normal Saline) 1,000 mls @ 150 mls/hr IV ASDIRECTED [facility] Last Admin: 01/13/19 01:58 Dose: 125 mls/hr Potassium Chloride 40 meq/ (Premix) 0 mls @ 25 mls/hr IV ONETIME ONE Stop: 01/12/19 22:21 Last Admin: 01/12/19 23:00 Dose: 25 mls/hr Sodium Chloride (Normal Saline) 1,000 mls @ 999 mls/hr IV ONETIME ONE Stop: 01/13/19 07:18 Last Admin: 01/13/19 06:24 Dose: 999 mls/hr Magnesium Sulfate 4 gm/ Premix 100 mls @ 50 mls/hr IV ONETIME ONE Stop: 01/13/19 09:27 Last Admin: 01/13/19 09:12 Dose: 50 mls/hr Sodium Chloride (Normal Saline) 1,000 mls @ 999 mls/hr IV .Bolus ONE Stop: 01/13/19 11:22 Last Admin: 01/13/19 10:56 Dose: 999 mls/hr Ferric Carboxymaltose 750 mg/ (Sodium Chloride) 265 mls @ 1,060 mls/hr IV ONETIME [facility] Influenza Virus Vaccine (Fluzone Quad 4744-1416 Syringe) 60 mcg IM .ONCE ONE Stop: 01/13/19 10:01 Iopamidol (Isovue-370 (76%)) 100 ml IVPUSH ONETIME ONE Stop: 01/12/19 20:37 Last Admin: 01/12/19 20:38 Dose: 100 ml Iopamidol (Isovue Multipack-370 (76%)) 100 ml IVPUSH ONETIME STA Stop: 01/13/19 08:17 Last Admin: 01/13/19 08:16 Dose: 100 ml Ondansetron HCl (Zofran) 4 mg IVPUSH ONETIME ONE Stop: 01/12/19 19:01 Last Admin: 01/12/19 19:23 Dose: 4 mg - Exam GI/Abdominal Exam: Soft, Non-Tender - Problem List Review Problem List Initiated/Reviewed/Updated: Yes - My Orders Last 24 Hours: Active Orders 24 hr Category Date Time Status Antiembolic Devices [RC] PER UNIT ROUTINE Care 01/14/19 05:28 Active Communication Order [RC] STAT Care 01/14/19 09:15 Active Verify Patient Consent Obtain [RC] ASDIRECTED Care 01/15/19 05:00 Active Clear Liquid Diet [DIET] Diet 01/14/19 Breakfast Active Nothing per Oral After Midnight Diet [DIET] Diet 01/14/19 Dinner Active CRP [C-REACTIVE PROTEIN] [CHEM] AM Lab 01/15/19 05:11 Ordered HEMOGLOBIN [HEME] Q8H Lab 01/14/19 19:00 Ordered HEMOGLOBIN [HEME] Q8H Lab 01/15/19 03:00 Ordered HEMOGLOBIN [HEME] Q8H Lab 01/15/19 11:00 Ordered HEMOGLOBIN [HEME] Q8H Lab 01/15/19 19:00 Ordered TSH [CHEM] Routine Lab 01/15/19 09:11 Ordered Ferric Carboxymaltose [Injectafer] 750 mg Med 01/14/19 12:15 Active Sodium Chloride 0.9% [Normal Saline] 100 ml IV ONETIME Lactated Ringers [Ringers, Lactated] 1,000 ml Med 01/15/19 05:00 Active IV ASDIRECTED methylPREDNISolone Sod Succ [Solu-MEDROL] Med 01/13/19 20:00 Active 20 mg IVPUSH Q8H SCD [Sequential Compression Device] [OM.PC] Routine Oth 01/14/19 05:28 Ordered Medication Orders Acetaminophen (Tylenol) 325 mg PO Q4H PRN PRN Reason: Fever Last Admin: 01/13/19 05:16 Dose: 325 mg Albuterol/Ipratropium (Duoneb 3.0-0.5 Mg/3 Ml) 3 ml NEB Q4HRRT PRN PRN Reason: Shortness Of Breath/wheezing Ciprofloxacin/Dextrose 400 mg/ (Premix) 200 mls @ 200 mls/hr IV Q12H [facility] Last Admin: 01/14/19 09:11 Dose: 200 mls/hr Infusion: 01/13/19 22:27 Dose: 200 mls/hr Admin: 01/13/19 21:27 Dose: 200 mls/hr Infusion: 01/13/19 11:57 Dose: 200 mls/hr Admin: 01/13/19 10:57 Dose: 200 mls/hr Infusion: 01/12/19 23:48 Dose: 200 mls/hr Admin: 01/12/19 22:48 Dose: 200 mls/hr Dextrose/Sodium Chloride (Dextrose 5%-Normal Saline) 1,000 mls @ 125 mls/hr IV ASDIRECTED [facility] Last Admin: 01/13/19 04:23 Dose: 125 mls/hr Lactated Ringer's (Ringers, Lactated) 1,000 mls @ 125 mls/hr IV ASDIRECTED [facility] Metronidazole 500 mg/ Premix 100 mls @ 100 mls/hr IV Q8H [facility] Last Admin: 01/14/19 11:54 Dose: 100 mls/hr Infusion: 01/14/19 04:10 Dose: 100 mls/hr Admin: 01/14/19 03:10 Dose: 100 mls/hr Infusion: 01/13/19 20:57 Dose: 100 mls/hr Admin: 01/13/19 19:57 Dose: 100 mls/hr Infusion: 01/13/19 12:53 Dose: 100 mls/hr Admin: 01/13/19 11:53 Dose: 100 mls/hr Sodium Chloride (Normal Saline) 1,000 mls @ 125 mls/hr IV ASDIRECTED [facility] Last Admin: 01/14/19 17:31 Dose: 125 mls/hr Infusion: 01/14/19 15:32 Dose: 125 mls/hr Admin: 01/14/19 07:32 Dose: 125 mls/hr Infusion: 01/14/19 06:38 Dose: 125 mls/hr Admin: 01/13/19 22:38 Dose: 125 mls/hr Ferric Carboxymaltose 750 mg/ (Sodium Chloride) 115 mls @ 460 mls/hr IV ONETIME [facility] Last Admin: 01/14/19 12:23 Dose: 460 mls/hr Methylprednisolone Sodium Succinate (Solu-Medrol) 20 mg IVPUSH Q8H [facility] Last Admin: 01/14/19 11:54 Dose: 20 mg Admin: 01/14/19 03:10 Dose: 20 mg Admin: 01/13/19 19:53 Dose: 20 mg Morphine Sulfate (Morphine) 1 mg IVPUSH Q4H PRN PRN Reason: Abdominal Pain Ondansetron HCl (Zofran) 4 mg IVPUSH Q4H PRN PRN Reason: Nausea/Vomiting Pantoprazole Sodium (Protonix Iv) 40 mg IV Q12HR [facility] Last Admin: 01/14/19 09:06 Dose: 40 mg Admin: 01/13/19 21:26 Dose: 40 mg Admin: 01/13/19 09:18 Dose: 40 mg Admin: 01/12/19 22:31 Dose: 40 mg - Assessment Assessment (Free Text/Narrative):: resolving gib; abd not tender; egd in the morning - Plan Plan (Free Text/Narrative):: colonoscopy and gastroscopy
[2019-01-14] MEDS ORDERED: Cyanocobalamin (Vitamin B12) 1,000 MCG/ML SDV SUBCUT ONE (18:55)
[2019-01-15] MEDS: metroNIDAZOLE/Normal Saline 500 MG in Premix Bag 1 BAG IV SCH (03:02)
[2019-01-15] MEDS: methylPREDNISolone Sodium Succinate 40 MG/1 ML SDV IVPUSH SCH ×3 (04:05→20:40)
[2019-01-15] MEDS ORDERED: Lactated Ringers 1,000 ML IV SCH (05:00)
[2019-01-15] MEDS ORDERED: Iron Sucrose Complex 100 MG in Sodium Chloride 0.9% 100 ML IV ONE (08:00)
[2019-01-15] MEDS: Pantoprazole 40 MG Vial IV SCH ×2 (08:27→21:19)
[2019-01-15] MEDS: Ciprofloxacin in D5W 400 MG in Premix Bag 1 BAG IV SCH ×2 (08:33)
--- NOTE | 2019-01-15 08:40 | PCM.PREANE ---
Preanesthetic Assessment - Anesthesia/Transfusion/Family Hx Anesthesia History: No Prior Anesthesia Family History of Anesthesia Reaction: No Transfusion History: No Prior Transfusion(s) Intubation History: Unknown - Review of Systems General: No Symptoms Pulmonary: No Symptoms Cardiovascular: No Symptoms Gastrointestinal: Abdominal Pain, Hematochezia, Other (anemia) Neurological: No Symptoms Other: Reports: None - Physical Assessment Vital Signs: Last Vital Signs Temp 36.5 C 01/15/19 08:00 Pulse 96 01/13/19 18:03 Resp 17 01/15/19 08:00 BP 108/67 01/15/19 08:00 Pulse Ox 98 01/15/19 08:00 Height: 5 ft 4.17 in Weight: 58.4 kg ASA Class: 2 Mental Status: Alert & Oriented x3 Airway Class: Mallampati = 1 Dentition: Reports: Normal Dentition Thyro-Mental Finger Breadths: 3 Mouth Opening Finger Breadths: 3 ROM/Head Extension: Full Lungs: Clear to Auscultation, Normal Respiratory Effort Cardiovascular: Regular Rate, Regular Rhythm - Lab Values: Laboratory Last Values WBC 13.73 K/uL (4.0-11.0) H 01/14/19 05:59 RBC 5.18 M/uL (4.30-5.90) 01/14/19 05:59 Hgb 10.7 g/dL (12.0-16.0) L 01/15/19 05:57 Hct 36.5 % (36.0-46.0) 01/14/19 05:59 MCV 70.5 fL (80.0-98.0) L 01/14/19 05:59 MCH 22.4 pg (27.0-32.0) L 01/14/19 05:59 MCHC 31.8 g/dL (31.0-37.0) 01/14/19 05:59 RDW Std Deviation 54.9 fl (28.0-62.0) 01/14/19 05:59 RDW Coeff of Buck 22 % (11.0-15.0) H 01/14/19 05:59 Plt Count 399 K/uL (150-400) 01/14/19 05:59 MPV 9.30 fL (7.40-12.00) 01/14/19 05:59 Neut % (Auto) [employer] 01/14/19 05:59 Lymph % (Auto) [employer] 01/14/19 05:59 Granite % (Auto) [employer] 01/14/19 05:59 Eos % (Auto) [employer] 01/14/19 05:59 Baso % (Auto) [employer] 01/14/19 05:59 Neut # (Auto) [employer] 01/14/19 05:59 Lymph # (Auto) [employer] 01/14/19 05:59 Granite # (Auto) [employer] 01/14/19 05:59 Eos # (Auto) [employer] 01/14/19 05:59 Baso # (Auto) [employer] 01/14/19 05:59 Add Manual Diff YES 01/14/19 05:59 Neutrophils % (Manual) 68 % (48.0-80.0) 01/14/19 05:59 Band Neutrophils % 24 % 01/14/19 05:59 Lymphocytes % (Manual) 6 % (16.0-40.0) L 01/14/19 05:59 Monocytes % (Manual) 2 % (0.0-15.0) 01/14/19 05:59 Eosinophils % (Manual) 5 % (0.0-7.0) 01/13/19 06:00 Nucleated RBC % 0.0 /100WBC 01/14/19 05:59 Absolute Seg Neuts 9.3 (1.4-5.7) H 01/14/19 05:59 Band Neutrophils # 3.3 01/14/19 05:59 Lymphocytes # (Manual) 0.8 (0.6-2.4) 01/14/19 05:59 Monocytes # (Manual) 0.3 (0.0-0.8) 01/14/19 05:59 Eosinophils # (Manual) 0.6 (0.0-0.7) 01/13/19 06:00 Nucleated RBCs # 0 K/uL 01/14/19 05:59 Hypochromasia 1+ SLIGHT 01/14/19 05:59 ESR 20 mm/hr (0-19) H 01/13/19 06:00 Lactate 1.8 mmol/L (0.20-2.00) 01/12/19 19:15 Sodium 138 mmol/L (136-145) 01/14/19 05:59 Potassium 4.1 mmol/L (3.5-5.1) 01/14/19 05:59 Chloride 107 mmol/L (98-107) 01/14/19 05:59 Carbon Dioxide 18.6 mmol/L (21.0-32.0) L 01/14/19 05:59 BUN 5 mg/dL (7.0-18.0) L 01/14/19 05:59 Creatinine 0.9 mg/dL (0.6-1.0) 01/14/19 05:59 Est Cr Clr Drug Dosing 86.73 mL/min 01/14/19 05:59 Estimated GFR (MDRD) > 60.0 ml/min 01/14/19 05:59 Glucose 92 mg/dL (74-106) 01/14/19 05:59 POC Glucose 83 mg/dL (60-110) 01/14/19 05:59 Calcium 8.2 mg/dL (8.5-10.1) L 01/14/19 05:59 Phosphorus 3.7 mg/dL (2.6-4.7) 01/14/19 05:59 Magnesium 1.8 mg/dL (1.8-2.4) 01/14/19 05:59 Iron 14 ug/dL (50-175) L 01/14/19 05:59 TIBC 287 ug/dL (250-450) 01/14/19 05:59 % Saturation 4.88 % (20-55) L 01/14/19 05:59 Ferritin 7 ng/mL (8-252) L 01/12/19 19:15 Total Bilirubin 0.3 mg/dL (0.2-1.0) 01/14/19 05:59 AST 11 IU/L (15-37) L 01/14/19 05:59 ALT 11 IU/L (14-63) L 01/14/19 05:59 Alkaline Phosphatase 94 U/L (46-116) 01/14/19 05:59 C-Reactive Protein 4.70 mg/dL (0.00-0.90) H 01/15/19 05:57 Total Protein 7.0 g/dL (6.4-8.2) 01/14/19 05:59 Albumin 2.8 g/dL (3.4-5.0) L 01/14/19 05:59 Globulin 4.2 g/dL (2.6-4.0) H 01/14/19 05:59 Albumin/Globulin Ratio 0.7 (0.9-1.6) L 01/14/19 05:59 Lipase 38 U/L (73-393) L 01/12/19 19:15 TSH 3rd Generation 1.12 uIU/mL (0.36-3.74) 01/15/19 05:57 Urine Color YELLOW 01/12/19 19:40 Urine Appearance SLT CLOUDY 01/12/19 19:40 Urine pH 6.0 (5.0-8.0) 01/12/19 19:40 Ur Specific [place] >= 1.030 (1.001-1.035) 01/12/19 19:40 Urine Protein 100 mg/dL (NEGATIVE) H 01/12/19 19:40 Urine Glucose (UA) NEGATIVE mg/dL (NEGATIVE) 01/12/19 19:40 Urine Ketones >=80 mg/dL (NEGATIVE) 01/12/19 19:40 Urine Occult Blood MODERATE (NEGATIVE) H 01/12/19 19:40 Urine Nitrite NEGATIVE (NEGATIVE) 01/12/19 19:40 Urine Bilirubin MODERATE (NEGATIVE) H 01/12/19 19:40 Urine Ictotest NEGATIVE 01/12/19 19:40 Urine Urobilinogen 0.2 EU/dL (<2.0) 01/12/19 19:40 Ur Leukocyte Esterase NEGATIVE (NEGATIVE) 01/12/19 19:40 Urine RBC 2-4 (0-2/HPF) 01/12/19 19:40 Urine WBC 3-6 (0-5/HPF) 01/12/19 19:40 Ur Epithelial Cells MODERATE (NONE-FEW) 01/12/19 19:40 Urine Bacteria FEW (NEGATIVE) 01/12/19 19:40 Urine Mucus MODERATE (NONE-MOD) 01/12/19 19:40 Urine Yeast RARE 01/12/19 19:40 Urine HCG, Qual NEGATIVE (NEGATIVE) 01/12/19 19:13 Rowena species DNA POSITIVE (NEGATIVE) H 01/12/19 19:40 Chlamydia/GC Source GENITAL 01/12/19 19:40 C.trachomatis RNA (TMA) Negative (Negative) 01/12/19 19:40 Gardnerella DNA Probe POSITIVE (NEGATIVE) H 01/12/19 19:40 N.gonorrhoeae RNA (TMA) Negative (Negative) 01/12/19 19:40 Trichomonas DNA Probe NEGATIVE (NEGATIVE) 01/12/19 19:40 Blood Type O NEGATIVE 01/13/19 07:06 Antibody Screen NEGATIVE 01/13/19 07:06 Crossmatch See Detail 01/13/19 07:06 - Allergies Allergies/Adverse Reactions: Allergies Allergy/AdvReac Type Severity Reaction Status Date / Time No Known Allergies Allergy Verified 01/13/19 00:45 - Blood Blood Available: No - Anesthesia Plan Pre-Op Medication Ordered: None - Acknowledgements Anesthesia Type Planned: MAC Pt an Appropriate Candidate for the Planned Anesthesia: Yes Alternatives and Risks of Anesthesia Discussed w Pt/Guardian: Yes Pt/Guardian Understands and Agrees with Anesthesia Plan: Yes PreAnesthesia Questionnaire - Past Health History Medical/Surgical History: Denies Medical/Surgical History Gastrointestinal History: Reports: Irritable Bowel Syndrome, Other (See Below) Other Gastrointestinal History: History of Ulcerative Colitis in [facility], came to the ER with Hg of 5.8 and recral bleeding, received 3 units PRBC, Hg now 10.7 Psychiatric History: Reports: ADHD - Past Surgical History GI Surgical History: Reports: None - SUBSTANCE USE Smoking Status *Q: Never Smoker Tobacco Use Within Last Twelve Months: No Second Hand Smoke Exposure: No Recreational Drug Use History: No - HOME MEDS Home Medications: Home Meds . [No Known Home Meds] 05/13/18 [History] - CURRENT (IN HOUSE) MEDS Current Meds: Current Medications Acetaminophen (Tylenol) 325 mg PO Q4H PRN PRN Reason: Fever Last Admin: 01/13/19 05:16 Dose: 325 mg Albuterol/Ipratropium (Duoneb 3.0-0.5 Mg/3 Ml) 3 ml NEB Q4HRRT PRN PRN Reason: Shortness Of Breath/wheezing Ciprofloxacin/Dextrose 400 mg/ (Premix) 200 mls @ 200 mls/hr IV Q12H DONNIE Last Admin: 01/15/19 08:33 Dose: 200 mls/hr Dextrose/Sodium Chloride (Dextrose 5%-Normal Saline) 1,000 mls @ 125 mls/hr IV ASDIRECTED DONNIE Last Admin: 01/13/19 04:23 Dose: 125 mls/hr Lactated Ringer's (Ringers, Lactated) 1,000 mls @ 125 mls/hr IV ASDIRECTED DONNIE Last Infusion: 01/15/19 08:00 Dose: 75 mls/hr Metronidazole 500 mg/ Premix 100 mls @ 100 mls/hr IV Q8H [facility] Last Admin: 01/15/19 03:02 Dose: 100 mls/hr Sodium Chloride (Normal Saline) 1,000 mls @ 125 mls/hr IV ASDIRECTED [facility] Last Admin: 01/14/19 17:31 Dose: 125 mls/hr Ferric Carboxymaltose 750 mg/ (Sodium Chloride) 115 mls @ 460 mls/hr IV ONETIME [facility] Last Admin: 01/14/19 12:23 Dose: 460 mls/hr Methylprednisolone Sodium Succinate (Solu-Medrol) 20 mg IVPUSH Q8H [facility] Last Admin: 01/15/19 04:05 Dose: 20 mg Morphine Sulfate (Morphine) 1 mg IVPUSH Q4H PRN PRN Reason: Abdominal Pain Ondansetron HCl (Zofran) 4 mg IVPUSH Q4H PRN PRN Reason: Nausea/Vomiting Pantoprazole Sodium (Protonix Iv) 40 mg IV Q12HR [facility] Last Admin: 01/15/19 08:27 Dose: 40 mg Discontinued Medications Cyanocobalamin (Vitamin B12) 1,000 mcg SUBCUT ONETIME ONE Stop: 01/14/19 18:56 Last Admin: 01/14/19 19:44 Dose: 1,000 mcg Dextrose/Water (Dextrose 50% In Water) 50 ml IVPUSH ONETIME ONE Stop: 01/13/19 06:51 Last Admin: 01/13/19 07:03 Dose: 50 ml Fluconazole (Diflucan) 150 mg PO ONETIME ONE Stop: 01/14/19 09:17 Last Admin: 01/14/19 09:36 Dose: 150 mg Sodium Chloride (Normal Saline) 1,000 mls @ 999 mls/hr IV STAT ONE Stop: 01/12/19 20:01 Last Admin: 01/12/19 19:23 Dose: 999 mls/hr Sodium Chloride (Normal Saline) 1,000 mls @ 999 mls/hr IV .Bolus ONE Stop: 01/12/19 22:08 Last Admin: 01/12/19 21:16 Dose: 999 mls/hr Metronidazole 500 mg/ Premix 100 mls @ 100 mls/hr IV ONETIME ONE Stop: 01/12/19 22:24 Last Admin: 01/12/19 21:50 Dose: 100 mls/hr Sodium Chloride (Normal Saline) 1,000 mls @ 999 mls/hr IV BOLUS DONNIE Last Admin: 01/13/19 00:08 Dose: 999 mls/hr Sodium Chloride (Normal Saline) 1,000 mls @ 150 mls/hr IV ASDIRECTED DONNIE Last Admin: 01/13/19 01:58 Dose: 125 mls/hr Potassium Chloride 40 meq/ (Premix) 0 mls @ 25 mls/hr IV ONETIME ONE Stop: 01/12/19 22:21 Last Admin: 01/12/19 23:00 Dose: 25 mls/hr Sodium Chloride (Normal Saline) 1,000 mls @ 999 mls/hr IV ONETIME ONE Stop: 01/13/19 07:18 Last Admin: 01/13/19 06:24 Dose: 999 mls/hr Magnesium Sulfate 4 gm/ Premix 100 mls @ 50 mls/hr IV ONETIME ONE Stop: 01/13/19 09:27 Last Admin: 01/13/19 09:12 Dose: 50 mls/hr Sodium Chloride (Normal Saline) 1,000 mls @ 999 mls/hr IV .Bolus ONE Stop: 01/13/19 11:22 Last Admin: 01/13/19 10:56 Dose: 999 mls/hr Ferric Carboxymaltose 750 mg/ (Sodium Chloride) 265 mls @ 1,060 mls/hr IV ONETIME DONNIE Iron Sucrose 100 mg/ Sodium (Chloride) 105 mls @ 400 mls/hr IV ONETIME ONE Stop: 01/15/19 08:15 Influenza Virus Vaccine (Fluzone Quad Syringe) 60 mcg IM .ONCE ONE Stop: 01/13/19 10:01 Iopamidol (Isovue-370 (76%)) 100 ml IVPUSH ONETIME ONE Stop: 01/12/19 20:37 Last Admin: 01/12/19 20:38 Dose: 100 ml Iopamidol (Isovue Multipack-370 (76%)) 100 ml IVPUSH ONETIME STA Stop: 01/13/19 08:17 Last Admin: 01/13/19 08:16 Dose: 100 ml Ondansetron HCl (Zofran) 4 mg IVPUSH ONETIME ONE Stop: 01/12/19 19:01 Last Admin: 01/12/19 19:23 Dose: 4 mg
[2019-01-15 08:55] LABS: BLOOD UREA NITROGEN,BUN 8 mg/dL (7.0-18.0); CARBON DIOXIDE,CO2 15.9 mmol/L (21.0-32.0); CHLORIDE,CL 107 mmol/L (98-107); GLUCOSE RANDOM 109 mg/dL (74-106); POTASSIUM,K 4.3 mmol/L (3.5-5.1); SODIUM,NA 138 mmol/L (136-145)
[2019-01-15] MEDS ORDERED: Iron Sucrose Complex 100 MG in Sodium Chloride 0.9% 100 ML IV SCH (09:30)
--- NOTE | 2019-01-15 09:56 | PCM.PN ---
- General Info Date of Service: 01/15/19 Subjective Update: 18 y/o female admitted for acute blood loss anemia 2/2 IBD. S/p 3 units, Hg stable. Denies any chest pain, dyspnea, abdominal pain. No dysuria. Denies any bloody stools. Pending upper EG today. - Patient Data Vitals - Most Recent: Last Vital Signs Temp 36.5 C 01/15/19 08:00 Pulse 96 01/13/19 18:03 Resp 19 01/15/19 09:00 BP 108/68 01/15/19 09:00 Pulse Ox 99 01/15/19 09:00 Weight - Most Recent: 58.4 kg I&O - Last 24 Hours: Intake & Output 01/14/19 01/15/19 01/15/19 22:59 06:59 14:59 Intake Total 1700 1431 200 Output Total 500 1800 Balance 1200 -369 200 Lab Results Last 24 Hours: Laboratory Results - last 24 hr 01/12/19 01/14/19 01/14/19 Range/Units 19:40 13:16 19:53 WBC (4.0-11.0) K/uL RBC (4.30-5.90) M/uL Hgb 11.9 L 11.7 L (12.0-16.0) g/dL Hct (36.0-46.0) % MCV (80.0-98.0) fL MCH (27.0-32.0) pg MCHC (31.0-37.0) g/dL RDW Std Deviation (28.0-62.0) fl RDW Coeff of Buck (11.0-15.0) % Plt Count (150-400) K/uL MPV (7.40-12.00) fL Neut % (Auto) (48.0-80.0) % Lymph % (Auto) (16.0-40.0) % [place] % (Auto) (0.0-15.0) % Eos % (Auto) (0.0-7.0) % Baso % (Auto) (0.0-1.5) % Neut # (Auto) (1.4-5.7) K/uL Lymph # (Auto) (0.6-2.4) K/uL [place] # (Auto) (0.0-0.8) K/uL Eos # (Auto) (0.0-0.7) K/uL Baso # (Auto) (0.0-0.1) K/uL Nucleated RBC % /100WBC Nucleated RBCs # K/uL C-Reactive Protein (0.00-0.90) mg/dL TSH 3rd Generation (0.36-3.74) uIU/mL Chlamydia/GC Source GENITAL C.trachomatis RNA (TMA) Negative (Negative) N.gonorrhoeae RNA (TMA) Negative (Negative) 01/15/19 01/15/19 01/15/19 Range/Units 05:57 05:57 05:57 WBC (4.0-11.0) K/uL RBC (4.30-5.90) M/uL Hgb 10.7 L (12.0-16.0) g/dL Hct (36.0-46.0) % MCV (80.0-98.0) fL MCH (27.0-32.0) pg MCHC (31.0-37.0) g/dL RDW Std Deviation (28.0-62.0) fl RDW Coeff of Buck (11.0-15.0) % Plt Count (150-400) K/uL MPV (7.40-12.00) fL Neut % (Auto) (48.0-80.0) % Lymph % (Auto) (16.0-40.0) % [place] % (Auto) (0.0-15.0) % Eos % (Auto) (0.0-7.0) % Baso % (Auto) (0.0-1.5) % Neut # (Auto) (1.4-5.7) K/uL Lymph # (Auto) (0.6-2.4) K/uL [place] # (Auto) (0.0-0.8) K/uL Eos # (Auto) (0.0-0.7) K/uL Baso # (Auto) (0.0-0.1) K/uL Nucleated RBC % /100WBC Nucleated RBCs # K/uL C-Reactive Protein 4.70 H (0.00-0.90) mg/dL TSH 3rd Generation 1.12 (0.36-3.74) uIU/mL Chlamydia/GC Source C.trachomatis RNA (TMA) (Negative) N.gonorrhoeae RNA (TMA) (Negative) 01/15/19 Range/Units 06:57 WBC 15.68 H (4.0-11.0) K/uL RBC 4.78 (4.30-5.90) M/uL Hgb 10.6 L (12.0-16.0) g/dL Hct 33.5 L (36.0-46.0) % MCV 70.1 L (80.0-98.0) fL MCH 22.2 L (27.0-32.0) pg MCHC 31.6 (31.0-37.0) g/dL RDW Std Deviation 56.3 (28.0-62.0) fl RDW Coeff of Buck 23 H (11.0-15.0) % Plt Count 446 H (150-400) K/uL MPV 9.90 (7.40-12.00) fL Neut % (Auto) 81.2 H (48.0-80.0) % Lymph % (Auto) 8.8 L (16.0-40.0) % [place] % (Auto) 9.7 (0.0-15.0) % Eos % (Auto) 0.1 (0.0-7.0) % Baso % (Auto) 0.2 (0.0-1.5) % Neut # (Auto) 12.7 H (1.4-5.7) K/uL Lymph # (Auto) 1.4 (0.6-2.4) K/uL [place] # (Auto) 1.5 H (0.0-0.8) K/uL Eos # (Auto) 0.0 (0.0-0.7) K/uL Baso # (Auto) 0.0 (0.0-0.1) K/uL Nucleated RBC % 0.0 /100WBC Nucleated RBCs # 0 K/uL C-Reactive Protein (0.00-0.90) mg/dL TSH 3rd Generation (0.36-3.74) uIU/mL Chlamydia/GC Source C.trachomatis RNA (TMA) (Negative) N.gonorrhoeae RNA (TMA) (Negative) Rohit Results Last 24 Hours: Microbiology 01/13/19 04:25 Stool Culture - Final Stool / Feces NO SALMONELLA, SHIGELLA,OR E.COLI O157 ISOLATED Campylobacter Antigen Assay - Final NEGATIVE CAMPYLOBACTER AG REFERENCE RANGE: NEGATIVE Shiga Toxin I - Final NEGATIVE FOR SHIGA TOXIN 1 REFERENCE RANGE: NEGATIVE Shiga Toxin II - Final NEGATIVE FOR SHIGA TOXIN 2 REFERENCE RANGE: NEGATIVE 01/13/19 04:25 Cryptosporidium/Giardia - Final Stool / Feces 01/12/19 19:17 Quick Strep Confirmation Culture - Final Throat NO GROUP A STREP ISOLATED REFERENCE RANGE: NEGATIVE Group A Streptococcus Rapid Screen - Final NEGATIVE STREP A SCREEN REFERENCE RANGE: NEGATIVE Med Orders - Current: Current Medications Acetaminophen (Tylenol) 325 mg PO Q4H PRN PRN Reason: Fever Last Admin: 01/13/19 05:16 Dose: 325 mg Albuterol/Ipratropium (Duoneb 3.0-0.5 Mg/3 Ml) 3 ml NEB Q4HRRT PRN PRN Reason: Shortness Of Breath/wheezing Dextrose/Sodium Chloride (Dextrose 5%-Normal Saline) 1,000 mls @ 125 mls/hr IV ASDIRECTED [facility] Last Admin: 01/13/19 04:23 Dose: 125 mls/hr Lactated Ringer's (Ringers, Lactated) 1,000 mls @ 125 mls/hr IV ASDIRECTED [facility] Last Infusion: 01/15/19 08:00 Dose: 75 mls/hr Sodium Chloride (Normal Saline) 1,000 mls @ 125 mls/hr IV ASDIRECTED [facility] Last Admin: 01/14/19 17:31 Dose: 125 mls/hr Ferric Carboxymaltose 750 mg/ (Sodium Chloride) 115 mls @ 460 mls/hr IV ONETIME [facility] Last Admin: 01/14/19 12:23 Dose: 460 mls/hr Iron Sucrose 100 mg/ Sodium (Chloride) 105 mls @ 400 mls/hr IV ONETIME [facility] Last Admin: 01/15/19 09:30 Dose: 400 mls/hr Methylprednisolone Sodium Succinate (Solu-Medrol) 20 mg IVPUSH Q8H [facility] Last Admin: 01/15/19 04:05 Dose: 20 mg Morphine Sulfate (Morphine) 1 mg IVPUSH Q4H PRN PRN Reason: Abdominal Pain Ondansetron HCl (Zofran) 4 mg IVPUSH Q4H PRN PRN Reason: Nausea/Vomiting Pantoprazole Sodium (Protonix Iv) 40 mg IV Q12HR DONNIE Last Admin: 01/15/19 08:27 Dose: 40 mg Discontinued Medications Cyanocobalamin (Vitamin B12) 1,000 mcg SUBCUT ONETIME ONE Stop: 01/14/19 18:56 Last Admin: 01/14/19 19:44 Dose: 1,000 mcg Dextrose/Water (Dextrose 50% In Water) 50 ml IVPUSH ONETIME ONE Stop: 01/13/19 06:51 Last Admin: 01/13/19 07:03 Dose: 50 ml Fluconazole (Diflucan) 150 mg PO ONETIME ONE Stop: 01/14/19 09:17 Last Admin: 01/14/19 09:36 Dose: 150 mg Sodium Chloride (Normal Saline) 1,000 mls @ 999 mls/hr IV STAT ONE Stop: 01/12/19 20:01 Last Admin: 01/12/19 19:23 Dose: 999 mls/hr Sodium Chloride (Normal Saline) 1,000 mls @ 999 mls/hr IV .Bolus ONE Stop: 01/12/19 22:08 Last Admin: 01/12/19 21:16 Dose: 999 mls/hr Ciprofloxacin/Dextrose 400 mg/ (Premix) 200 mls @ 200 mls/hr IV Q12H DONNIE Last Admin: 01/15/19 08:33 Dose: 200 mls/hr Metronidazole 500 mg/ Premix 100 mls @ 100 mls/hr IV ONETIME ONE Stop: 01/12/19 22:24 Last Admin: 01/12/19 21:50 Dose: 100 mls/hr Sodium Chloride (Normal Saline) 1,000 mls @ 999 mls/hr IV BOLUS DONNIE Last Admin: 01/13/19 00:08 Dose: 999 mls/hr Sodium Chloride (Normal Saline) 1,000 mls @ 150 mls/hr IV ASDIRECTED DONNIE Last Admin: 01/13/19 01:58 Dose: 125 mls/hr Potassium Chloride 40 meq/ (Premix) 0 mls @ 25 mls/hr IV ONETIME ONE Stop: 01/12/19 22:21 Last Admin: 01/12/19 23:00 Dose: 25 mls/hr Sodium Chloride (Normal Saline) 1,000 mls @ 999 mls/hr IV ONETIME ONE Stop: 01/13/19 07:18 Last Admin: 01/13/19 06:24 Dose: 999 mls/hr Magnesium Sulfate 4 gm/ Premix 100 mls @ 50 mls/hr IV ONETIME ONE Stop: 01/13/19 09:27 Last Admin: 01/13/19 09:12 Dose: 50 mls/hr Sodium Chloride (Normal Saline) 1,000 mls @ 999 mls/hr IV .Bolus ONE Stop: 01/13/19 11:22 Last Admin: 01/13/19 10:56 Dose: 999 mls/hr Metronidazole 500 mg/ Premix 100 mls @ 100 mls/hr IV Q8H DONNIE Last Admin: 01/15/19 03:02 Dose: 100 mls/hr Ferric Carboxymaltose 750 mg/ (Sodium Chloride) 265 mls @ 1,060 mls/hr IV ONETIME DONNIE Iron Sucrose 100 mg/ Sodium (Chloride) 105 mls @ 400 mls/hr IV ONETIME ONE Stop: 01/15/19 08:15 Last Admin: 01/15/19 09:37 Dose: Not Given Influenza Virus Vaccine (Fluzone Quad Syringe) 60 mcg IM .ONCE ONE Stop: 01/13/19 10:01 Iopamidol (Isovue-370 (76%)) 100 ml IVPUSH ONETIME ONE Stop: 01/12/19 20:37 Last Admin: 01/12/19 20:38 Dose: 100 ml Iopamidol (Isovue Multipack-370 (76%)) 100 ml IVPUSH ONETIME STA Stop: 01/13/19 08:17 Last Admin: 01/13/19 08:16 Dose: 100 ml Ondansetron HCl (Zofran) 4 mg IVPUSH ONETIME ONE Stop: 01/12/19 19:01 Last Admin: 01/12/19 19:23 Dose: 4 mg - Exam General: Alert, Oriented, Cooperative, No Acute Distress Lungs: Clear to Auscultation, Normal Respiratory Effort. No: Crackles, Wheezing Cardiovascular: Regular Rate, Regular Rhythm GI/Abdominal Exam: Normal Bowel Sounds, Soft, Non-Tender, No Distention Extremities: Normal Inspection, Non-Tender, No Pedal Edema Skin: Warm, Dry - Problem List Review Problem List Initiated/Reviewed/Updated: Yes - My Orders Last 24 Hours: My Active Orders 01/15/19 06:57 COMPREHENSIVE METABOLIC PN,CMP [CHEM] Routine - Plan Plan:: A: 1. Acute blood loss anemia 2/2 suspected IBD s/p 3 units PRBCs, H/H stable. 2. Asymptomatic bradycardia 3. Leukocytosis 4. Elevated CRP P: Patient is hemodynamically stable s/p 3 units PRBCs. Pending upper EGD today by Dr. Adams. Will order EKG to check bradycardia. Discontinued antibiotics since stool cultures have been negative. Her leukocytosis is reactive secondary to steroids. For now, will continue with methylprednisolone 20 mg IV Q8H. H/H q12H. Will plan to DC tomorrow on PO steroid taper. Will need to follow-up with GI outpatient. Dispo: plan to DC tomorrow
[2019-01-15] MEDS ORDERED: Ondansetron 4 MG/2 ML SDV ONE (11:52)
[2019-01-15] MEDS ORDERED: Propofol 200 MG/20 ML SDV ONE ×2 (11:53→12:41)
[2019-01-15] MEDS ORDERED: fentaNYL 100 MCG/2 ML SDV ONE (11:53)
--- NOTE | 2019-01-15 13:05 | PCM.POSTAN ---
POST ANESTHESIA ASSESSMENT - MENTAL STATUS Mental Status: Alert, Oriented - VITAL SIGNS Vital Signs: Last Vital Signs Temp 35.7 C 01/15/19 13:00 Pulse 60 01/15/19 13:00 Resp 16 01/15/19 13:00 BP 121/73 01/15/19 13:00 Pulse Ox 100 01/15/19 13:00 - RESPIRATORY Respiratory Status: Respiratory Rate WNL, Airway Patent, O2 Saturation Stable - CARDIOVASCULAR CV Status: Pulse Rate WNL, Blood Pressure Stable - GASTROINTESTINAL GI Status: No Symptoms - PAIN Pain Score: 0 - POST OP HYDRATION Hydration Status: Adequate & Stable - OBSERVATIONS Free Text/Narrative:: No anesthesia problems,patient skipped recovery room stage of postoperative care.
--- NOTE | 2019-01-15 13:17 | PCM.OPNOTE ---
- General Post-Op/Procedure Note Date of Surgery/Procedure: 01/15/19 Operative Procedure(s): egd w bx Findings: egd finding, no blood/ulcer/inflammation; [id number] Pre Op Diagnosis: GIB Post-Op Diagnosis: Same Anesthesia Technique: Moderate Sedation Primary Surgeon: Wojciech Adams Pathology: sent Complications: None Condition: Stable Free Text/Narrative:: Intake & Output 01/14/19 01/15/19 01/15/19 22:59 06:59 14:59 Intake Total 1700 1431 300 Output Total 500 1800 Balance 1200 -369 300
--- NOTE | 2019-01-15 13:20 | PCM.SN ---
- Free Text/Narrative Note: EGD finding essentially negative for UGIB. OK to discharge from surg stand point. fu w 3 wks for colonoscopy scheduling; tks for the consult and care of this nice patient
[2019-01-15] MEDS: Lactated Ringers 1,000 ML IV SCH (14:02)
[2019-01-15] MEDS: Pantoprazole 40 MG in Sodium Chloride 0.9% 10 ML IV SCH (21:42)
[2019-01-16] MEDS: methylPREDNISolone Sodium Succinate 40 MG/1 ML SDV IVPUSH SCH ×2 (03:11→11:58)
[2019-01-16] MEDS: Lactated Ringers 1,000 ML IV SCH (03:11)
[2019-01-16 06:41] LABS: BLOOD UREA NITROGEN,BUN 10 mg/dL (7.0-18.0); CARBON DIOXIDE,CO2 22.1 mmol/L (21.0-32.0); CHLORIDE,CL 106 mmol/L (98-107); GLUCOSE RANDOM 106 mg/dL (74-106); POTASSIUM,K 3.9 mmol/L (3.5-5.1); SODIUM,NA 141 mmol/L (136-145)
--- NOTE | 2019-01-16 07:06 | PCM48HPAN ---
Post Anesthesia Note - EVALUATION WITHIN 48HRS OF ANESTHETIC Vital Signs in Normal Range: Yes Patient Participated in Evaluation: Yes Respiratory Function Stable: Yes Airway Patent: Yes Cardiovascular Function Stable: Yes Hydration Status Stable: Yes Pain Control Satisfactory: Yes Nausea and Vomiting Control Satisfactory: Yes Mental Status Recovered: Yes Vital Signs: Last Vital Signs Temp 36.1 C 01/16/19 03:00 Pulse 50 L 01/16/19 03:00 Resp 14 01/16/19 03:00 BP 124/72 01/16/19 03:00 Pulse Ox 100 01/16/19 03:00 - COMMENTS/OBSERVATIONS Free Text/Narrative:: no anesthesia problems
[2019-01-16] MEDS: Pantoprazole 40 MG in Sodium Chloride 0.9% 10 ML IV SCH (08:52)
--- NOTE | 2019-01-16 08:54 | OR ---
SURGEON: Wojciech Adams MD DATE OF PROCEDURE: 01/15/2019 PREOPERATIVE DIAGNOSIS: Gastrointestinal bleeding. POSTOPERATIVE DIAGNOSIS: Gastroesophageal reflux disease. PROCEDURE PERFORMED: EGD with biopsy. DESCRIPTION OF PROCEDURE: EGD: The patient was taken to the endoscopy room, and with the [employer], Diprivan was administered. A well-lubricated EGD scope was gently inserted through the oropharynx, down the esophagus, passing through the gastroesophageal junction, into the stomach. The mucosa was examined upon the passage. Any etiology will be noted. Once in the stomach, we continued to advance to the distal antrum, passed through the pylorus into the second portion of the duodenum. Again, the mucosa was examined for any abnormality and etiology. The scope was then retrieved back to the stomach and then retroflexed to look at the fundus of the stomach. If a biopsy was indicated, we will biopsy the antrum, body, and gastroesophageal junction. The air will be sucked out while the scope is retrieved to reduce the patient's discomfort. The patient tolerated the procedure well. There were no intraoperative complications. Dr. Adams was present through the whole procedure. Prior to surgery, a time-out had been called, the patient identified, procedure identified and antibiotic administered. FINDIN. The patient is easily sedated with [employer] and Diprivan, patient is soundly snoring. 2. Oropharynx and proximal esophagus are free of disease and stricture inflammation. Distal esophagus at GE junction at 40 shows mild salmon- colored change, consistent with mild acid reflux. Stomach rugae is normal in appearance. No bile, food, blood, ulcer, or old blood, none of those. Antrum is normal in appearance, and duodenum is grossly normal in appearance. Retroflexed to look at the fundus of stomach, there is no hiatal hernia. Biopsy done at antrum, body, and sucked out the gas while scope pulling out. Again throughout the whole study, no ulcer, blood, or blood clots observed, none of those. As always, thank you for your kind referral. ALVERTO / MESSI /[id number]
--- NOTE | 2019-01-16 11:25 | PCM.DCSUM1 ---
Discharge Summary - Hospital Course Free Text/Narrative:: 18 y/o female presenting to the ER complaining of worsening rectal bleeding, loose stools for the past few days. CT abdomen showed diffuse colitis. Hemoglobin at presentation was 9.3. She was hydrated with NS and subsequent Hg was 5.8. She was aggressively hydrated with NS and transfused with 3 units PRBCs. General surgery was consulted due to rectal bleeding. Hemoglobin was closely monitored and subsequent levels were stable Hg 11.5. Stool studies were obtained which were negative for infectious source. She remained afebrile and IV ciprofloxacin and metronidazole were discontinued after 3 days. She was started on Methylprednisolone 20 mg Q8H which seemed to help with the inflammation and blood loss. Presentation was consistent with inflammatory bowel disease. She obtained an upper EGD by Dr. Adams which was unremarkable. No gastritis or signs of upper GI bleeding. Dr. Adams recommended follow-up in 3-4 weeks for colonoscopy. In addition, she was referred to GI in [place] for further evaluation. She was discharged home hemodynamically stable on prednisone taper 40 mg daily for 7 days, then 20 mg daily for 7 days and then 10 mg PO daily until finished. Also, prescribed iron, vitamin B12 supplementation. - Discharge Data Discharge Date: 01/16/19 Discharge Disposition: Home, Self-Care 01 Condition: Good - Referral to Home Health Primary Care Physician: PCP None - Patient Summary/Data Operative Procedure(s) Performed: egd w bx Consults: Consultations 01/13/19 09:58 Consult to Physician [CONS] Routine - Patient Instructions Diet: Regular Diet as Tolerated Activity: As Tolerated Notify Provider of: Fever, Increased Pain, Swelling and Redness, Nausea and/or Vomiting Other/Special Instructions: Seek medical attention if bleeding for more than 2 days. - Discharge Plan Prescriptions/Med Rec: Cyanocobalamin (Vitamin B-12) [Vitamin B-12] 1,000 mcg PO DAILY #30 tablet Iron Polysaccharides Complex [Ferrex 150] 150 mg PO DAILY #30 cap predniSONE [Prednisone] 10 mg PO ASDIRECTED #49 tablet Home Medications: Home Meds Cyanocobalamin (Vitamin B-12) [Vitamin B-12] 1,000 mcg PO DAILY #30 tablet 01/16 [Rx] Iron Polysaccharides Complex [Ferrex 150] 150 mg PO DAILY #30 cap 01/16/19 [Rx] predniSONE [Prednisone] 10 mg PO ASDIRECTED #49 tablet 10/31/19 [Rx] Referrals: Wojciech Adams MD [Physician] - (see Dr. Adams for 3-4 weeks for a colonoscopy) Radha Franco MD [Ordering Only Provider] - 01/22/19 2:20 pm (Please bring ID and come 30minutes before scheduled appoinment time.) - Discharge Summary/Plan Comment DC Time >30 min.: No - Patient Data Vitals - Most Recent: Last Vital Signs Temp 36.2 C 01/16/19 07:00 Pulse 51 L 01/16/19 07:00 Resp 14 01/16/19 07:00 BP 117/69 01/16/19 07:00 Pulse Ox 99 01/16/19 07:00 Weight - Most Recent: 57.6 kg I&O - Last 24 hours: Intake & Output 01/15/19 01/16/19 01/16/19 22:59 06:59 14:59 Intake Total 254 1357 Output Total 400 2100 Balance -146 -743 Lab Results - Last 24 hrs: Laboratory Results - last 24 hr 01/15/19 01/16/19 01/16/19 Range/Units 18:06 05:55 05:55 WBC 15.63 H (4.0-11.0) K/uL RBC 5.17 (4.30-5.90) M/uL Hgb 11.6 L 11.6 L (12.0-16.0) g/dL Hct 35.1 L 36.1 (36.0-46.0) % MCV 69.8 L (80.0-98.0) fL MCH 22.4 L (27.0-32.0) pg MCHC 32.1 (31.0-37.0) g/dL RDW Std Deviation 59.1 (28.0-62.0) fl RDW Coeff of Buck 24 H (11.0-15.0) % Plt Count 487 H (150-400) K/uL MPV 9.60 (7.40-12.00) fL Neut % (Auto) 82.9 H (48.0-80.0) % Lymph % (Auto) 10.9 L (16.0-40.0) % Steele % (Auto) 6.0 (0.0-15.0) % Eos % (Auto) 0.1 (0.0-7.0) % Baso % (Auto) 0.1 (0.0-1.5) % Neut # (Auto) 13.0 H (1.4-5.7) K/uL Lymph # (Auto) 1.7 (0.6-2.4) K/uL Steele # (Auto) 0.9 H (0.0-0.8) K/uL Eos # (Auto) 0.0 (0.0-0.7) K/uL Baso # (Auto) 0.0 (0.0-0.1) K/uL Nucleated RBC % 0.0 /100WBC Nucleated RBCs # 0 K/uL Sodium 141 (136-145) mmol/L Potassium 3.9 (3.5-5.1) mmol/L Chloride 106 (98-107) mmol/L Carbon Dioxide 22.1 (21.0-32.0) mmol/L BUN 10 (7.0-18.0) mg/dL Creatinine 0.9 (0.6-1.0) mg/dL Est Cr Clr Drug Dosing 86.73 mL/min Estimated GFR (MDRD) > 60.0 ml/min Glucose 106 (74-106) mg/dL Calcium 8.7 (8.5-10.1) mg/dL Total Bilirubin 0.3 (0.2-1.0) mg/dL AST 11 L (15-37) IU/L ALT 12 L (14-63) IU/L Alkaline Phosphatase 48 (46-116) U/L Total Protein 7.0 (6.4-8.2) g/dL Albumin 2.9 L (3.4-5.0) g/dL Globulin 4.1 H (2.6-4.0) g/dL Albumin/Globulin Ratio 0.7 L (0.9-1.6) JERO Results - Last 24 hrs: Microbiology 01/13/19 04:25 Stool Culture - Final Stool / Feces NO SALMONELLA, SHIGELLA,OR E.COLI O157 ISOLATED Campylobacter Antigen Assay - Final NEGATIVE CAMPYLOBACTER AG REFERENCE RANGE: NEGATIVE Shiga Toxin I - Final NEGATIVE FOR SHIGA TOXIN 1 REFERENCE RANGE: NEGATIVE Shiga Toxin II - Final NEGATIVE FOR SHIGA TOXIN 2 REFERENCE RANGE: NEGATIVE Med Orders - Current: Current Medications Acetaminophen (Tylenol) 325 mg PO Q4H PRN PRN Reason: Fever Last Admin: 01/13/19 05:16 Dose: 325 mg Albuterol/Ipratropium (Duoneb 3.0-0.5 Mg/3 Ml) 3 ml NEB Q4HRRT PRN PRN Reason: Shortness Of Breath/wheezing Ferric Carboxymaltose 750 mg/ (Sodium Chloride) 115 mls @ 460 mls/hr IV ONETIME DONNIE Last Admin: 01/14/19 12:23 Dose: 460 mls/hr Iron Sucrose 100 mg/ Sodium (Chloride) 105 mls @ 400 mls/hr IV ONETIME DONNIE Last Admin: 01/15/19 09:30 Dose: 400 mls/hr Lactated Ringer's (Ringers, Lactated) 1,000 mls @ 75 mls/hr IV ASDIRECTED [facility] Last Admin: 01/16/19 03:11 Dose: 75 mls/hr Pantoprazole Sodium 40 mg/ (Sodium Chloride) 10 mls @ 200 mls/hr IV BID [facility] Last Admin: 01/16/19 08:52 Dose: 200 mls/hr Methylprednisolone Sodium Succinate (Solu-Medrol) 20 mg IVPUSH Q8H [facility] Last Admin: 01/16/19 03:11 Dose: 20 mg Morphine Sulfate (Morphine) 1 mg IVPUSH Q4H PRN PRN Reason: Abdominal Pain Ondansetron HCl (Zofran) 4 mg IVPUSH Q4H PRN PRN Reason: Nausea/Vomiting Discontinued Medications Cyanocobalamin (Vitamin B12) 1,000 mcg SUBCUT ONETIME ONE Stop: 01/14/19 18:56 Last Admin: 01/14/19 19:44 Dose: 1,000 mcg Dextrose/Water (Dextrose 50% In Water) 50 ml IVPUSH ONETIME ONE Stop: 01/13/19 06:51 Last Admin: 01/13/19 07:03 Dose: 50 ml Fentanyl (Sublimaze) Confirm Administered Dose 100 mcg .ROUTE .STK-MED ONE Stop: 01/15/19 11:54 Fluconazole (Diflucan) 150 mg PO ONETIME ONE Stop: 01/14/19 09:17 Last Admin: 01/14/19 09:36 Dose: 150 mg Sodium Chloride (Normal Saline) 1,000 mls @ 999 mls/hr IV STAT ONE Stop: 01/12/19 20:01 Last Admin: 01/12/19 19:23 Dose: 999 mls/hr Sodium Chloride (Normal Saline) 1,000 mls @ 999 mls/hr IV .Bolus ONE Stop: 01/12/19 22:08 Last Admin: 01/12/19 21:16 Dose: 999 mls/hr Ciprofloxacin/Dextrose 400 mg/ (Premix) 200 mls @ 200 mls/hr IV Q12H [facility] Last Admin: 01/15/19 08:33 Dose: 200 mls/hr Metronidazole 500 mg/ Premix 100 mls @ 100 mls/hr IV ONETIME ONE Stop: 01/12/19 22:24 Last Admin: 01/12/19 21:50 Dose: 100 mls/hr Sodium Chloride (Normal Saline) 1,000 mls @ 999 mls/hr IV BOLUS [facility] Last Admin: 01/13/19 00:08 Dose: 999 mls/hr Sodium Chloride (Normal Saline) 1,000 mls @ 150 mls/hr IV ASDIRECTED [facility] Last Admin: 01/13/19 01:58 Dose: 125 mls/hr Potassium Chloride 40 meq/ (Premix) 0 mls @ 25 mls/hr IV ONETIME ONE Stop: 01/12/19 22:21 Last Admin: 01/12/19 23:00 Dose: 25 mls/hr Dextrose/Sodium Chloride (Dextrose 5%-Normal Saline) 1,000 mls @ 125 mls/hr IV ASDIRECTED [facility] Last Admin: 01/13/19 04:23 Dose: 125 mls/hr Sodium Chloride (Normal Saline) 1,000 mls @ 999 mls/hr IV ONETIME ONE Stop: 01/13/19 07:18 Last Admin: 01/13/19 06:24 Dose: 999 mls/hr Magnesium Sulfate 4 gm/ Premix 100 mls @ 50 mls/hr IV ONETIME ONE Stop: 01/13/19 09:27 Last Admin: 01/13/19 09:12 Dose: 50 mls/hr Sodium Chloride (Normal Saline) 1,000 mls @ 999 mls/hr IV .Bolus ONE Stop: 01/13/19 11:22 Last Admin: 01/13/19 10:56 Dose: 999 mls/hr Lactated Ringer's (Ringers, Lactated) 1,000 mls @ 125 mls/hr IV ASDIRECTED [facility] Last Infusion: 01/15/19 08:00 Dose: 75 mls/hr Metronidazole 500 mg/ Premix 100 mls @ 100 mls/hr IV Q8H DONNIE Last Admin: 01/15/19 03:02 Dose: 100 mls/hr Sodium Chloride (Normal Saline) 1,000 mls @ 125 mls/hr IV ASDIRECTED DONNIE Last Admin: 01/14/19 17:31 Dose: 125 mls/hr Ferric Carboxymaltose 750 mg/ (Sodium Chloride) 265 mls @ 1,060 mls/hr IV ONETIME DONNIE Iron Sucrose 100 mg/ Sodium (Chloride) 105 mls @ 400 mls/hr IV ONETIME ONE Stop: 01/15/19 08:15 Last Admin: 01/15/19 09:37 Dose: Not Given Influenza Virus Vaccine (Fluzone Quad Syringe) 60 mcg IM .ONCE ONE Stop: 01/13/19 10:01 Iopamidol (Isovue-370 (76%)) 100 ml IVPUSH ONETIME ONE Stop: 01/12/19 20:37 Last Admin: 01/12/19 20:38 Dose: 100 ml Iopamidol (Isovue Multipack-370 (76%)) 100 ml IVPUSH ONETIME STA Stop: 01/13/19 08:17 Last Admin: 01/13/19 08:16 Dose: 100 ml Lidocaine HCl (Xylocaine-Mpf 1%) Confirm Administered Dose 5 ml .ROUTE .STK-MED ONE Stop: 01/15/19 11:53 Ondansetron HCl (Zofran) 4 mg IVPUSH ONETIME ONE Stop: 01/12/19 19:01 Last Admin: 01/12/19 19:23 Dose: 4 mg Ondansetron HCl (Zofran) Confirm Administered Dose 4 mg .ROUTE .STK-MED ONE Stop: 01/15/19 11:53 Pantoprazole Sodium (Protonix Iv) 40 mg IV Q12HR [facility] Last Admin: 01/15/19 21:19 Dose: Not Given Propofol (Diprivan 20 Ml) Confirm Administered Dose 200 mg .ROUTE .STK-MED ONE Stop: 01/15/19 11:54 Propofol (Diprivan 20 Ml) Confirm Administered Dose 200 mg .ROUTE .STK-MED ONE Stop: 01/15/19 12:42
== END 2019-01-16 12:27 | disposition home or self-care (01) | DRG 812 ==
LOC: MW.ED 18:39 → INTOOBSV 21:29 → MW.ICU 21:29 → OBSVTOIN 01-13 07:15 → MW.ICU 01-13 07:31 → MW.MS 01-15 12:42
PROVIDERS: ADMIT Student in an Organized Health Care Education/Training Program; ATTEND Student in an Organized Health Care Education/Training Program
PROC: 30233N1 Transfusion of Nonautologous Red Blood Cells into Peripheral Vein, Percutaneous Approach (ICD-10-PCS; 2019-01-13)
PROC: 0DB48ZX Excision of Esophagogastric Junction, Via Natural or Artificial Opening Endoscopic, Diagnostic (ICD-10-PCS; principal; 2019-01-15)
PROC: 0DB68ZX Excision of Stomach, Via Natural or Artificial Opening Endoscopic, Diagnostic (ICD-10-PCS; 2019-01-15)
DX: D62 Acute posthemorrhagic anemia (principal); K52.9 Noninfective gastroenteritis and colitis, unspecified; R00.1 Bradycardia, unspecified; D72.829 Elevated white blood cell count, unspecified; E86.0 Dehydration; E87.6 Hypokalemia; D47.3 Essential (hemorrhagic) thrombocythemia; N76.0 Acute vaginitis; T38.0X5A Adverse effect of glucocorticoids and synthetic analogues, initial encounter
CPT/HCPCS: 00731; 36415; 36430; 71045; 71045-26; 74175; 74175-26; 74177; 74177-26; 80048; 80053; 81001; 81025; 82040; 82728; 82962; 83540; 83550; 83605; 83690; 83735; 84100; 84443; 85014; 85018; 85025; 85652; 86140; 87046; 87081; 87324; 87328; 87329; 87480; 87491; 87510; 87591; 87660; 87804; 87880-QW; 87899; 93005; 96361; 96365; 96375; 99285; 99285-25; A9270-GY; C9113; J0744; J1439; J1756; J2001; J2405; J2704; J2920; J3010; J3420; J3475; J3480; J3490; J7030; J7040; J7042; J7050; J7060; J7120; P9016; Q9967

== ENCOUNTER 2019-02-08 13:45 | Observation (INO) | payer OTHER ==
[2019-02-08] MEDS ORDERED: Sodium Chloride 0.9% 2.5 ML Syringe FLUSH PRN (14:19)
[2019-02-08] MEDS ORDERED: Sodium Chloride 0.9% 1,000 ML IV ONE ×2 (14:19→19:12)
[2019-02-08] MEDS ORDERED: Sodium Chloride 0.9% 10 ML Syringe FLUSH PRN (14:19)
--- NOTE | 2019-02-08 14:27 | EDM.PDOC ---
ED HPI GENERAL MEDICAL PROBLEM - General Chief Complaint: Gastrointestinal Problem Stated Complaint: ABD PAIN Time Seen by Provider: 02/08/19 14:20 Source of Information: Reports: Patient History Limitations: Reports: No Limitations - History of Present Illness INITIAL COMMENTS - FREE TEXT/NARRATIVE: HISTORY AND PHYSICAL: History of present illness: Patient is a 18-year-old female presents to the ED with complaint of vomiting, diarrhea, and abdominal pain 3 days. She was seen in the ER in [place] and had a full workup including labs and CT scan and was told that she has gastritis. she came directly from [place]'s ER here because "she does not feel better." She was prescribed prilosec and zofran. Patient does have a history of ulcerative colitis and states she has been having blood stools recently and was told to return ED if this was to occur. She denies fevers or chills. Review of systems: As per history of present illness and below otherwise all systems reviewed and negative. Past medical history: As per history of present illness and as reviewed below otherwise noncontributory. Surgical history: As per history of present illness and as reviewed below otherwise noncontributory. Social history: No reported history of drug or alcohol abuse. Family history: As per history of present illness and as reviewed below otherwise noncontributory. Physical exam: General: Patient sitting comfortably in no acute distress and nontoxic appearing HEENT: Atraumatic, normocephalic, pupils reactive, negative for conjunctival pallor or scleral icterus, mucous membranes moist, throat clear, neck supple, nontender, trachea midline. No meningeal signs. Lungs: Clear to auscultation, breath sounds equal bilaterally, chest nontender. Heart: S1S2, regular, negative for clicks, rubs, or overt murmur. Abdomen: Soft, nondistended. Diffuse abdominal tenderness, no localized tenderness. Negative for masses or hepatosplenomegaly. Negative for costovertebral tenderness. No rigidity, rebound, guarding. Pelvis: Stable nontender. Genitourinary: Deferred. Rectal: hemoccult positive Extremities: Atraumatic, negative for cords or calf pain. Neurovascular unremarkable. Neuro: Awake, alert, oriented. Cranial nerves II through XII unremarkable. Cerebellum unremarkable. Motor and sensory unremarkable throughout. Exam nonfocal. Notes: Diagnostics: Declines labs Therapeutics: 1 NS IV GI cocktail Prescriptions: Impression: Hx of ulcerative colitis, abdominal pain Plan: Discussed with Dr. Cedeño, patient will be admitted to observation for further evaluation and management of UC. Definitive disposition and diagnosis as appropriate pending reevaluation and review of above. abd Pain Score (Numeric/FACES): 6 - Related Data Allergies Allergy/AdvReac Type Severity Reaction Status Date / Time No Known Allergies Allergy Verified 01/13/19 00:45 Home Meds: Home Meds Cyanocobalamin (Vitamin B-12) [Vitamin B-12] 1,000 mcg PO DAILY #30 tablet 01/16 [Rx] Iron Polysaccharides Complex [Ferrex 150] 150 mg PO DAILY #30 cap 01/16/19 [Rx] predniSONE [Prednisone] 40 mg PO ASDIRECTED 02/08/19 [History] sulfaSALAzine 2 tab PO TID 02/08/19 [History] Past Medical History - Past Health History Medical/Surgical History: Denies Medical/Surgical History Gastrointestinal History: Reports: Irritable Bowel Syndrome, Other (See Below) Other Gastrointestinal History: History of Ulcerative Colitis in [facility], came to the ER with Hg of 5.8 and recral bleeding, received 3 units PRBC, Hg now 10.7 Psychiatric History: Reports: ADHD - Past Surgical History GI Surgical History: Reports: None, Colonoscopy Social & Family History - Family History Family Medical History: Noncontributory - Tobacco Use Smoking Status *Q: Never Smoker - Caffeine Use Caffeine Use: Reports: Soda - Recreational Drug Use Recreational Drug Use: No ED ROS GENERAL - Review of Systems Review Of Systems: Comprehensive ROS is negative, except as noted in HPI. ED EXAM, GI/ABD - Physical Exam Exam: See Below (see dictation) Course - Vital Signs Last Recorded V/S: Last Vital Signs Temp 97.4 F 02/08/19 13:54 Pulse 82 02/08/19 13:54 Resp 18 02/08/19 13:54 BP 147/84 H 02/08/19 13:54 Pulse Ox 100 02/08/19 13:54 - Orders/Labs/Meds Orders: Active Orders 24 hr Category Date Time Status Admission Status [Patient Status] [ADT] Stat ADT 02/08/19 18:11 Ordered CBC WITH AUTO DIFF [HEME] Stat Lab 02/08/19 17:48 Ordered COMPREHENSIVE METABOLIC PN,CMP [CHEM] Stat Lab 02/08/19 17:48 Ordered CRP [C-REACTIVE PROTEIN] [CHEM] Stat Lab 02/08/19 17:48 Ordered Sodium Chloride 0.9% [Saline Flush] Med 02/08/19 14:19 Active 10 ml FLUSH ASDIRECTED PRN Sodium Chloride 0.9% [Saline Flush] Med 02/08/19 14:19 Active 2.5 ml FLUSH ASDIRECTED PRN Saline Lock Insert [OM.PC] Stat Oth 02/08/19 14:19 Ordered Medication Orders Sodium Chloride (Saline Flush) 10 ml FLUSH ASDIRECTED PRN PRN Reason: Keep Vein Open Sodium Chloride (Saline Flush) 2.5 ml FLUSH ASDIRECTED PRN PRN Reason: Keep Vein Open Meds: Medications Generic Name Dose Route Start Last Admin Trade Name Freq PRN Reason Stop Dose Admin Sodium Chloride 10 ml 02/08/19 14:19 Saline Flush FLUSH ASDIRECTED PRN Keep Vein Open Sodium Chloride 2.5 ml 02/08/19 14:19 Saline Flush FLUSH ASDIRECTED PRN Keep Vein Open Discontinued Medications Generic Name Dose Route Start Last Admin Trade Name Freq PRN Reason Stop Dose Admin Al Hydroxide/Mg Hydroxide 15 0 ml 02/08/19 15:03 02/08/19 15:19 ml/ Lidocaine HCl 5 ml PO 02/08/19 15:04 1 each ONETIME ONE Administration Sodium Chloride 1,000 mls @ 999 mls/hr 02/08/19 14:19 02/08/19 14:55 Normal Saline IV 02/08/19 15:19 999 mls/hr STAT ONE Administration Departure - Departure Time of Disposition: 17:20 Disposition: Refer to Observation Condition: Good Clinical Impression: Abdominal pain, History of ulcerative colitis - Discharge Information Instructions: Abdominal Pain, Adult, [id number] Referrals: Janelle Dela Cruz, [employer] [Primary Care Provider] - Forms: ED Department Discharge - My Orders Last 24 Hours: My Active Orders 02/08/19 14:19 Sodium Chloride 0.9% [Saline Flush] 10 ml FLUSH ASDIRECTED PRN Sodium Chloride 0.9% [Saline Flush] 2.5 ml FLUSH ASDIRECTED PRN Saline Lock Insert [OM.PC] Stat 02/08/19 17:48 CBC WITH AUTO DIFF [HEME] Stat COMPREHENSIVE METABOLIC PN,CMP [CHEM] Stat CRP [C-REACTIVE PROTEIN] [CHEM] Stat 02/08/19 18:11 Admission Status [Patient Status] [ADT] Stat - Assessment/Plan Last 24 Hours: My Active Orders 02/08/19 14:19 Sodium Chloride 0.9% [Saline Flush] 10 ml FLUSH ASDIRECTED PRN Sodium Chloride 0.9% [Saline Flush] 2.5 ml FLUSH ASDIRECTED PRN Saline Lock Insert [OM.PC] Stat 02/08/19 17:48 CBC WITH AUTO DIFF [HEME] Stat COMPREHENSIVE METABOLIC PN,CMP [CHEM] Stat CRP [C-REACTIVE PROTEIN] [CHEM] Stat 02/08/19 18:11 Admission Status [Patient Status] [ADT] Stat
[2019-02-08] MEDS ORDERED: Alum Hydrox/Mag Hydrox/Simeth 15 ML, Lidocaine 2% 5 ML PO ONE ×2 (15:03)
--- NOTE | 2019-02-08 18:51 | PCM.HP.2 ---
H&P History of Present Illness - General Date of Service: 02/08/19 Admit Problem/Dx: Admission Diagnosis/Problem Admission Diagnosis/Problem Abdominal pain Source of Information: Patient History Limitations: Reports: No Limitations - History of Present Illness Initial Comments - Free Text/Narative: 18-year-old female presented to ER complaining of abdominal pain, vomiting and bloody diarrhea for the past 3-4 days. Patient reports that she also has subjective fevers. She was recently diagnosed with ulcerative colitis 1 week ago after having a colonoscopy by [employer] Dr. Franco in [place], [place]. Patient was started on prednisone and sulfasalazine at that time and will be following-up with gastroenterology in a few weeks. She initially went to an ER in [place] earlier today where she was found to have an elevated WBC count, elevated CRP and had CT abdomen/pelvis done. CT abdomen/pelvis showed gastritis and a prominent appendix with gas, unchanged from a previous exam. The CT abdomen also noted that appendicitis could not be excluded and that clinical correlation should be done. Patient was discharged from [place] ER and advised to follow-up with her PCP. Patient reports that she still was not feeling well so she decided to drive to [place] ER to get re-evaluated. In [place] ER, patient was given 1L NS bolus, GI cocktail and was noted to be Hemoccult positive. Patient was admitted for further evaluation. abd Pain Score (Numeric/FACES): 6 - Related Data Allergies/Adverse Reactions: Allergies Allergy/AdvReac Type Severity Reaction Status Date / Time No Known Allergies Allergy Verified 02/08/19 18:42 Home Medications: Home Meds Cyanocobalamin (Vitamin B-12) [Vitamin B-12] 1,000 mcg PO DAILY #30 tablet 01/16 [Rx] Iron Polysaccharides Complex [Ferrex 150] 150 mg PO DAILY #30 cap 01/16/19 [Rx] predniSONE [Prednisone] 40 mg PO ASDIRECTED 02/08/19 [History] sulfaSALAzine 2 tab PO TID 02/08/19 [History] Past Medical History - Past Health History Medical/Surgical History: Denies Medical/Surgical History Gastrointestinal History: Reports: Irritable Bowel Syndrome, Other (See Below) Other Gastrointestinal History: History of Ulcerative Colitis in [facility], came to the ER with Hg of 5.8 and recral bleeding, received 3 units PRBC, Hg now 10.7 Psychiatric History: Reports: ADHD - Past Surgical History GI Surgical History: Reports: None, Colonoscopy Social & Family History - Family History Family Medical History: Noncontributory - Tobacco Use Smoking Status *Q: Never Smoker - Caffeine Use Caffeine Use: Reports: Soda - Recreational Drug Use Recreational Drug Use: No H&P Review of Systems - Review of Systems: Review Of Systems: Comprehensive ROS is negative, except as noted in HPI. Exam - Exam Exam: See Below - Vital Signs Vital Signs: Last Vital Signs Temp 97.4 F 02/08/19 13:54 Pulse 92 02/08/19 18:29 Resp 18 02/08/19 13:54 BP 125/80 02/08/19 18:29 Pulse Ox 100 02/08/19 18:29 Weight: 119 lb 14.903 oz - Exam General: Alert, Oriented, Cooperative, Mild Distress HEENT: Conjunctiva Clear, EOMI, Mucosa Moist & [place], Posterior Pharynx Clear Neck: Supple, Trachea Midline Lungs: Clear to Auscultation, Normal Respiratory Effort Cardiovascular: Regular Rate, Regular Rhythm GI/Abdominal Exam: Soft, Other (hyperactive bowel sounds, generalized ttp, non- distended, ) Extremities: Normal Inspection, No Pedal Edema Skin: Warm, Dry, Intact Neurological: Cranial Nerves Intact, Strength Equal Bilateral, Normal Speech, Normal Tone Psychiatric: Alert, Normal Affect, Normal Mood Problem List Initiated/Reviewed/Updated: Yes Orders Last 24hrs: Active Orders 24 hr Category Date Time Status Admission Status [Patient Status] [ADT] Stat ADT 02/08/19 18:11 Active CBC WITH AUTO DIFF [HEME] Stat Lab 02/08/19 17:48 Ordered COMPREHENSIVE METABOLIC PN,CMP [CHEM] Stat Lab 02/08/19 17:48 Ordered CRP [C-REACTIVE PROTEIN] [CHEM] Stat Lab 02/08/19 17:48 Ordered Sodium Chloride 0.9% [Saline Flush] Med 02/08/19 14:19 Active 10 ml FLUSH ASDIRECTED PRN Sodium Chloride 0.9% [Saline Flush] Med 02/08/19 14:19 Active 2.5 ml FLUSH ASDIRECTED PRN Saline Lock Insert [OM.PC] Stat Oth 02/08/19 14:19 Ordered Medication Orders Sodium Chloride (Saline Flush) 10 ml FLUSH ASDIRECTED PRN PRN Reason: Keep Vein Open Sodium Chloride (Saline Flush) 2.5 ml FLUSH ASDIRECTED PRN PRN Reason: Keep Vein Open Assessment/Plan Comment:: Assessment: 1. Abdominal pain secondary to ulcerative colitis. 2. Nausea. 3. Bloody stools likely secondary to #1. 4. Leukocytosis likely reactive to steroids vs #1. 5. Thrombocytosis. Plan: 1. For abdominal pain secondary to ulcerative colitis, will continue PO sulfasalazine and PO prednisone 40 mg qd. Start IV ciprofloxacin 400 mg q12h and IV metronidazole 500 mg q8h. IV protonix. Ct abdomen[facility]pelvis from [facility] was reviewed. CBC, CMP, ESR and LA pending. Will hydrate with 1L of IV NS 75 cc/ hr. Clear liquid diet. Patient is non-toxic appearing. Vital signs are stable. 2. For nausea, ondansetron prn. 3. For bloody stool, will send for stool cultures, c. diff, and ova and parasites. 4. For leukocytosis, will monitor with next set of labs. 5. For thrombocytosis, will monitor with next set of labs. 6. For DVT prophylaxis, patient is on SCD's.
[2019-02-08] MEDS ORDERED: metroNIDAZOLE/Normal Saline 500 MG in Premix Bag 1 BAG IV SCH (19:00)
[2019-02-08] MEDS ORDERED: Acetaminophen 325 MG Tab PO PRN (19:10)
[2019-02-08] MEDS ORDERED: Morphine 10 MG/ML Syringe IVPUSH PRN (19:10)
[2019-02-08] MEDS ORDERED: Ondansetron 4 MG Tab.DIS PO PRN (19:10)
[2019-02-08] MEDS ORDERED: Ondansetron 4 MG/2 ML SDV IVPUSH PRN (19:10)
[2019-02-08] MEDS ORDERED: predniSONE 10 MG Tab PO SCH (19:15)
[2019-02-08 19:48] LABS: BLOOD UREA NITROGEN,BUN 10 mg/dL (7.0-18.0); CARBON DIOXIDE,CO2 23.3 mmol/L (21.0-32.0); CHLORIDE,CL 106 mmol/L (98-107); GLUCOSE RANDOM 76 mg/dL (74-106); POTASSIUM,K 3.6 mmol/L (3.5-5.1); SODIUM,NA 140 mmol/L (136-145)
[2019-02-08] MEDS: Pantoprazole 40 MG in Sodium Chloride 0.9% 10 ML IV SCH (19:54)
[2019-02-08] MEDS: Ciprofloxacin in D5W 400 MG in Premix Bag 1 BAG IV SCH ×2 (19:55)
[2019-02-08] MEDS: sulfaSALAzine 500 MG Tab PO SCH (21:11)
[2019-02-08] MEDS: metroNIDAZOLE/Normal Saline 500 MG in Premix Bag 1 BAG IV SCH (21:11)
[2019-02-08] MEDS ORDERED: Pantoprazole 40 MG in Sodium Chloride 0.9% 10 ML IV ONE (22:42)
[2019-02-08] MEDS ORDERED: Aluminum Hydroxide/Magnesium Hydroxide/Simethicone Susp 30 ML Cup PO STA (22:42)
[2019-02-08] MEDS ORDERED: Morphine 2 MG/ML Syringe IVPUSH PRN (23:02)
[2019-02-09] MEDS: metroNIDAZOLE/Normal Saline 500 MG in Premix Bag 1 BAG IV SCH ×3 (04:18→20:24)
[2019-02-09] MEDS: sulfaSALAzine 500 MG Tab PO SCH ×3 (06:07→22:09)
[2019-02-09] MEDS: Ciprofloxacin in D5W 400 MG in Premix Bag 1 BAG IV SCH ×4 (06:08→18:00)
[2019-02-09 06:32] LABS: BLOOD UREA NITROGEN,BUN 6 mg/dL (7.0-18.0); CARBON DIOXIDE,CO2 22.9 mmol/L (21.0-32.0); CHLORIDE,CL 104 mmol/L (98-107); GLUCOSE RANDOM 79 mg/dL (74-106); POTASSIUM,K 3.5 mmol/L (3.5-5.1); SODIUM,NA 137 mmol/L (136-145)
[2019-02-09] MEDS ORDERED: predniSONE 20 MG Tab PO SCH (08:00)
[2019-02-09] MEDS: Cyanocobalamin (Vitamin B12) 500 MCG Tab PO SCH (08:04)
[2019-02-09] MEDS: Iron Polysaccharides Complex 150 MG Cap PO SCH (08:04)
[2019-02-09] MEDS: Pantoprazole 40 MG in Sodium Chloride 0.9% 10 ML IV SCH (08:05)
[2019-02-09] MEDS ORDERED: FLU Vacc QS2019-20(6MOS+)/PF 60 MCG/0.5 ML SYRINGE IM ONE (09:00)
--- NOTE | 2019-02-09 11:10 | PCM.PN ---
- General Info Date of Service: 02/09/19 Admission Dx/Problem (Free Text): Admission Diagnosis/Problem Admission Diagnosis/Problem Abdominal pain Functional Status: Reports: Pain Controlled, Tolerating Diet, Urinating - Review of Systems General: Reports: Weakness, Fatigue. Denies: Fever, Malaise, Chills Pulmonary: Denies: Shortness of Breath Cardiovascular: Reports: Chest Pain. Denies: Palpitations, Dyspnea on Exertion , Orthopnea Gastrointestinal: Reports: Abdominal Pain, Decreased Appetite, Diarrhea. Denies : Constipation, Difficulty Swallowing, Nausea, Vomiting Genitourinary: Denies: Dysuria, Frequency Skin: Denies: Cyanosis, Jaundice, Mottled - Patient Data Vitals - Most Recent: Last Vital Signs Temp 37.0 C 02/09/19 08:00 Pulse 100 02/09/19 08:00 Resp 14 02/09/19 08:00 BP 119/67 02/09/19 08:00 Pulse Ox 98 02/09/19 08:00 Weight - Most Recent: 53.1 kg I&O - Last 24 Hours: Intake & Output 02/08/19 02/09/19 02/09/19 22:59 06:59 14:59 Intake Total 1423 10 Output Total 700 Balance 723 10 Lab Results Last 24 Hours: Laboratory Results - last 24 hr 02/08/19 02/08/19 02/08/19 Range/Units 19:25 19:25 19:25 WBC 26.90 H (4.0-11.0) K/uL RBC 4.85 (4.30-5.90) M/uL Hgb 12.2 (12.0-16.0) g/dL Hct 36.8 (36.0-46.0) % MCV 75.9 L (80.0-98.0) fL MCH 25.2 L (27.0-32.0) pg MCHC 33.2 (31.0-37.0) g/dL Plt Count 411 H (150-400) K/uL MPV 9.40 (7.40-12.00) fL Neut % (Auto) 74.3 (48.0-80.0) % Lymph % (Auto) 16.8 (16.0-40.0) % Pratt % (Auto) 8.1 (0.0-15.0) % Eos % (Auto) 0.7 (0.0-7.0) % Baso % (Auto) 0.1 (0.0-1.5) % Neut # (Auto) 20.0 H (1.4-5.7) K/uL Lymph # (Auto) 4.5 H (0.6-2.4) K/uL Pratt # (Auto) 2.2 H (0.0-0.8) K/uL Eos # (Auto) 0.2 (0.0-0.7) K/uL Baso # (Auto) 0.0 (0.0-0.1) K/uL Nucleated RBC % 0.0 /100WBC Nucleated RBCs # 0 K/uL Lactate 1.4 (0.20-2.00) mmol/L Sodium 140 (136-145) mmol/L Potassium 3.6 (3.5-5.1) mmol/L Chloride 106 (98-107) mmol/L Carbon Dioxide 23.3 (21.0-32.0) mmol/L BUN 10 (7.0-18.0) mg/dL Creatinine 0.9 (0.6-1.0) mg/dL Est Cr Clr Drug Dosing 85.63 mL/min Estimated GFR (MDRD) > 60.0 ml/min Glucose 76 (74-106) mg/dL Calcium 8.5 (8.5-10.1) mg/dL Total Bilirubin 0.4 (0.2-1.0) mg/dL AST 10 L (15-37) IU/L ALT 17 (14-63) IU/L Alkaline Phosphatase 58 (46-116) U/L Troponin I (0.000-0.056) ng/mL C-Reactive Protein 3.20 H (0.00-0.90) mg/dL Total Protein 6.9 (6.4-8.2) g/dL Albumin 3.2 L (3.4-5.0) g/dL Globulin 3.7 (2.6-4.0) g/dL Albumin/Globulin Ratio 0.9 (0.9-1.6) 02/08/19 02/09/19 02/09/19 Range/Units 22:58 06:05 06:05 WBC 16.66 H (4.0-11.0) K/uL RBC 4.23 L (4.30-5.90) M/uL Hgb 10.5 L (12.0-16.0) g/dL Hct 32.5 L (36.0-46.0) % MCV 76.8 L (80.0-98.0) fL MCH 24.8 L (27.0-32.0) pg MCHC 32.3 (31.0-37.0) g/dL Plt Count 345 (150-400) K/uL MPV 9.20 (7.40-12.00) fL Neut % (Auto) 71.9 (48.0-80.0) % Lymph % (Auto) 19.3 (16.0-40.0) % Pratt % (Auto) 7.5 (0.0-15.0) % Eos % (Auto) 1.1 (0.0-7.0) % Baso % (Auto) 0.2 (0.0-1.5) % Neut # (Auto) 12.0 H (1.4-5.7) K/uL Lymph # (Auto) 3.2 H (0.6-2.4) K/uL Pratt # (Auto) 1.3 H (0.0-0.8) K/uL Eos # (Auto) 0.2 (0.0-0.7) K/uL Baso # (Auto) 0.0 (0.0-0.1) K/uL Nucleated RBC % 0.0 /100WBC Nucleated RBCs # 0 K/uL Lactate (0.20-2.00) mmol/L Sodium 137 (136-145) mmol/L Potassium 3.5 (3.5-5.1) mmol/L Chloride 104 (98-107) mmol/L Carbon Dioxide 22.9 (21.0-32.0) mmol/L BUN 6 L (7.0-18.0) mg/dL Creatinine 0.9 (0.6-1.0) mg/dL Est Cr Clr Drug Dosing 83.58 mL/min Estimated GFR (MDRD) > 60.0 ml/min Glucose 79 (74-106) mg/dL Calcium 8.1 L (8.5-10.1) mg/dL Total Bilirubin 0.6 (0.2-1.0) mg/dL AST 11 L (15-37) IU/L ALT 14 (14-63) IU/L Alkaline Phosphatase 232 H (46-116) U/L Troponin I < 0.050 (0.000-0.056) ng/mL C-Reactive Protein (0.00-0.90) mg/dL Total Protein 5.6 L (6.4-8.2) g/dL Albumin 2.6 L (3.4-5.0) g/dL Globulin 3.0 (2.6-4.0) g/dL Albumin/Globulin Ratio 0.9 (0.9-1.6) Rohit Results Last 24 Hours: Microbiology 02/09/19 01:40 C. difficile Antigen & Toxins A,B - Final Stool / Feces 02/09/19 01:40 Campylobacter Antigen Assay - Final Stool / Feces NEGATIVE [facility]AMPYLOBACTER AG REFERENCE RANGE: NEGATIVE Med Orders - Current: Current Medications Acetaminophen (Tylenol) 650 mg PO Q4H PRN PRN Reason: Pain (Mild 1-3)/fever Cyanocobalamin (Vitamin B12) 1,000 mcg PO DAILY [facility] [place] Last Admin: 02/09/19 08:04 Dose: 1,000 mcg Ciprofloxacin/Dextrose 400 mg/ (Premix) 200 mls @ 200 mls/hr IV Q12H [facility] [place] Last Admin: 02/09/19 06:08 Dose: 200 mls/hr Pantoprazole Sodium 40 mg/ (Sodium Chloride) 10 mls @ 300 mls/hr IV DAILY [facility] [place] Last Admin: 02/09/19 08:05 Dose: 300 mls/hr Metronidazole 500 mg/ Premix 100 mls @ 100 mls/hr IV Q8H [facility] [place] Last Admin: 02/09/19 04:18 Dose: 100 mls/hr Morphine Sulfate (Morphine) 2 mg IVPUSH Q4H PRN PRN Reason: Pain (severe 7-10) Stop: 02/09/19 19:11 Ondansetron HCl (Zofran Odt) 4 mg PO Q4H PRN PRN Reason: nausea, able to take PO Ondansetron HCl (Zofran) 4 mg IVPUSH Q4H PRN PRN Reason: Nausea Polysaccharide Iron Complex (Ferrex 150) 150 mg PO DAILY [facility] [place] Last Admin: 02/09/19 08:04 Dose: 150 mg Sodium Chloride (Saline Flush) 10 ml FLUSH ASDIRECTED PRN PRN Reason: Keep Vein Open Sodium Chloride (Saline Flush) 2.5 ml FLUSH ASDIRECTED PRN PRN Reason: Keep Vein Open Sulfasalazine (Sulfasalazine) 1,000 mg PO TID [facility] [place] Last Admin: 02/09/19 06:07 Dose: 1,000 mg Vancomycin HCl (Vancomycin) 125 mg PO Q6H DONNIE Discontinued Medications Al Hydroxide/Mg Hydroxide (Mag-Al Plus) 30 ml PO ONETIME STA Stop: 02/08/19 22:43 Last Admin: 02/08/19 22:56 Dose: 30 ml Al Hydroxide/Mg Hydroxide 15 (ml/ Lidocaine HCl 5 ml) 0 ml PO ONETIME ONE Stop: 02/08/19 15:04 Last Admin: 02/08/19 15:19 Dose: 1 each Sodium Chloride (Normal Saline) 1,000 mls @ 999 mls/hr IV STAT ONE Stop: 02/08/19 15:19 Last Admin: 02/08/19 14:55 Dose: 999 mls/hr Metronidazole 500 mg/ Premix 100 mls @ 100 mls/hr IV Q8H [facility] [place] Last Admin: 02/08/19 20:44 Dose: Not Given Sodium Chloride (Normal Saline) 1,000 mls @ 75 mls/hr IV STAT ONE Stop: 02/09/19 08:31 Last Admin: 02/08/19 19:54 Dose: 75 mls/hr Pantoprazole Sodium 40 mg/ (Sodium Chloride) 10 mls @ 300 mls/hr IV NOW ONE Stop: 02/08/19 22:43 Last Admin: 02/08/19 22:56 Dose: 300 mls/hr Influenza Virus Vaccine (Pharmacy To Dose - Influenza Vaccine) 1 each IM ONETIME ONE Stop: 02/08/19 18:57 Influenza Virus Vaccine (Fluzone Quad [id number] Syringe) 60 mcg IM .ONCE ONE Stop: 02/09/19 09:01 Morphine Sulfate (Morphine) 2 mg IVPUSH Q2H PRN PRN Reason: Pain (severe 7-10) Stop: 02/09/19 19:11 Last Admin: 02/08/19 22:48 Dose: 2 mg Prednisone (Prednisone) 40 mg PO ASDIRECTED DONNIE Prednisone (Prednisone) 20 mg PO WITHBREAKFAST [facility] [place] Last Admin: 02/09/19 08:04 Dose: 20 mg - Exam General: Alert, Oriented Lungs: Clear to Auscultation, Normal Respiratory Effort Cardiovascular: Regular Rate, Regular Rhythm GI/Abdominal Exam: Soft, Tender. No: Rigid, Rebound Peripheral Pulses: 3+: Dorsalis Pedis (L), Dorsalis Pedis (R) Skin: Warm, Intact - Problem List & Annotations (1) C. difficile diarrhea SNOMED Code(s): 4813089977061 Code(s): A04.72 - ENTEROCOLITIS D/T CLOSTRIDIUM DIFFICILE, NOT SPCF RECUR Status: Acute Current Visit: Yes (2) Abdominal pain SNOMED Code(s): 30391608 Code(s): R10.9 - UNSPECIFIED ABDOMINAL PAIN Status: Acute Current Visit: Yes (3) History of ulcerative colitis SNOMED Code(s): 243331120 Code(s): Z87.19 - PERSONAL HISTORY OF OTHER DISEASES OF THE DIGESTIVE SYSTEM Status: Acute Current Visit: Yes (4) Colitis SNOMED Code(s): 42039654 Code(s): K52.9 - NONINFECTIVE GASTROENTERITIS AND COLITIS, UNSPECIFIED Status: Acute Current Visit: No (5) GI bleeding SNOMED Code(s): 04295961 Code(s): K92.2 - GASTROINTESTINAL HEMORRHAGE, UNSPECIFIED Status: Acute Current Visit: No - Problem List Review Problem List Initiated/Reviewed/Updated: Yes - My Orders Last 24 Hours: My Active Orders 02/08/19 23:02 Morphine 2 mg IVPUSH Q4H PRN 02/09/19 11:00 Vancomycin 125 mg PO Q6H - Plan Plan:: Assessment: 1. Abdominal pain secondary to ulcerative colitis vs c Diff colitis. Plan: 18 y/o F admitted sec to colitis, Ulcerative along with c diff positive. Started PO Vanco cont IV flagyl, cipro Stop PO prednisone due to ongoing infection cont sulfasalazine GI bleeding sec to colitis, monitor HNH, repeat in evening Cont IV PPI SCD for DVT ppx
[2019-02-09] MEDS: Vancomycin 125 MG Cap PO SCH ×3 (12:35→22:10)
[2019-02-09] MEDS ORDERED: Sodium Chloride 0.9% 1,000 ML IV ONE (16:57)
[2019-02-09] MEDS ORDERED: Sodium Chloride 0.9% 1,000 ML IV SCH (17:00)
[2019-02-09] MEDS ORDERED: Pantoprazole 40 MG in Sodium Chloride 0.9% 10 ML IV STA (21:46)
[2019-02-09] MEDS: Aluminum Hydroxide/Magnesium Hydroxide/Simethicone Susp 30 ML Cup PO PRN (22:05)
[2019-02-09] MEDS: Morphine 2 MG/ML Syringe IVPUSH PRN (23:11)
[2019-02-10] MEDS ORDERED: Sodium Chloride 0.9% 1,000 ML IV SCH (02:56)
[2019-02-10] MEDS: metroNIDAZOLE/Normal Saline 500 MG in Premix Bag 1 BAG IV SCH (04:33)
[2019-02-10] MEDS: Aluminum Hydroxide/Magnesium Hydroxide/Simethicone Susp 30 ML Cup PO PRN (04:33)
[2019-02-10] MEDS: Vancomycin 125 MG Cap PO SCH ×3 (04:34→16:43)
[2019-02-10] MEDS: Morphine 2 MG/ML Syringe IVPUSH PRN ×3 (04:51→16:42)
[2019-02-10 06:18] LABS: BLOOD UREA NITROGEN,BUN 6 mg/dL (7.0-18.0); CARBON DIOXIDE,CO2 21.8 mmol/L (21.0-32.0); CHLORIDE,CL 104 mmol/L (98-107); GLUCOSE RANDOM 95 mg/dL (74-106); POTASSIUM,K 3.3 mmol/L (3.5-5.1); SODIUM,NA 137 mmol/L (136-145)
[2019-02-10] MEDS: Ciprofloxacin in D5W 400 MG in Premix Bag 1 BAG IV SCH ×2 (06:21)
[2019-02-10] MEDS: sulfaSALAzine 500 MG Tab PO SCH ×2 (06:25→14:21)
[2019-02-10] MEDS: Iron Polysaccharides Complex 150 MG Cap PO SCH (08:53)
[2019-02-10] MEDS: Cyanocobalamin (Vitamin B12) 500 MCG Tab PO SCH (08:53)
[2019-02-10] MEDS ORDERED: Lactated Ringers 1,000 ML IV ONE (11:02)
[2019-02-10] MEDS ORDERED: Piperacillin/Tazobactam 4.5 GM in Sodium Chloride 0.9% 100 ML IV ONE (11:04)
[2019-02-10] MEDS ORDERED: Lactated Ringers 500 ML IV SCH (12:00)
[2019-02-10] MEDS ORDERED: Magnesium Sulfate/Water 2 GM in Premix Bag 1 BAG IV ONE ×2 (12:10→16:45)
[2019-02-10] MEDS ORDERED: Potassium Chloride Riders 40 MEQ in Premix Bag 1 BAG IV ONE (14:10)
[2019-02-10] MEDS ORDERED: Iopamidol 755 MG/ML 500 ML Multipack Bottle IVPUSH STA (14:14)
--- NOTE | 2019-02-10 14:50 | CT ---
CT abdomen and pelvis Technique: Multiple axial sections were obtained from above the dome of the diaphragm inferiorly through the pubic symphysis. Intravenous contrast was utilized. No oral contrast was given. Comparison: Prior CT abdomen and pelvis exam of 01/12/19. Findings: Visualized lung bases show nothing acute. Liver contains no focal parenchymal abnormality. Spleen appears within normal limits. Adrenal glands show no nodule. Kidneys show symmetric contrast enhancement without hydronephrosis or mass. Diffuse edema is noted within the wall of the stomach. This is an interval change from previous exam. Wall thickening that was seen within the rectosigmoid regions on prior study shows improvement. Appendix shows no discrete abnormality. Small amount of free fluid is noted within the pelvis. Aorta shows no aneurysm. Pancreas is within normal limits. Gallbladder shows no calcified gallstones. No retroperitoneal adenopathy or mesenteric abnormalities are definitely appreciated. Bone window settings were reviewed which shows no acute osseous finding. Impression: 1. Diffuse and severe wall edema within the stomach. This is an interval change from prior CT exam. Findings presumably represent severe gastritis. 2. Wall thickening is seen on prior study within the rectum and sigmoid colon shows improvement. 3. Small amount of free fluid within the pelvis which may relate to previous inflammatory process or represent physiologic fluid from dominant follicle rupture. 4. No additional abnormality is definitely appreciated. Lack of oral contrast diminishes details. Diagnostic code #3 MTDD
--- NOTE | 2019-02-10 17:53 | PCM.DCSUM1 ---
<Dc Bates - Last Filed: 02/10/19 17:44> Discharge Summary - Hospital Course Free Text/Narrative:: 18-year-old female admitted for abdominal pain secondary to ulcerative colitis flare-up vs c. diff colitis. Patient reports being diagnosed with ulcerative colitis approximately 1 week ago by GI specialist Dr. Franco. Patient reports having worsening abdominal pain, vomiting and bloody diarrhea for the past 3-4 days. Patient initially went to ER in [place], [place] and had elevated WBHC count, elevated CRP and CT showed gastritis. Patient came to [place] [facility] as she still was not feeling better. She was started on IV cipro and flagyl and also PO vancomycin for c. diff. Patient reported that her abdominal pain was not improving after 1 day and her WBC count actually increased. Patient was then started on IV vancomycin, IV zosyn and remained on PO vancomycin. Repeat CT scan showed diffuse severe wall edema within the stomach. It was then decided that patient required a higher level of care and possible gastroenterology evaluation. Patient was accepted for transfer by Dr. Borja at [facility] in [place]. Patient transferred in stable condition via ground ambulance. - Discharge Data Discharge Date: 02/10/19 Discharge Disposition: DC/Tfer to Acute Hospital 02 Condition: Stable - Referral to Home Health Primary Care Physician: Janelle Dela Cruz NP - Patient Instructions Diet: Usual Diet as Tolerated Activity: As Tolerated Notify Provider of: Fever, Increased Pain, Swelling and Redness, Drainage, Nausea and/or Vomiting - Discharge Plan *PRESCRIPTION DRUG MONITORING PROGRAM REVIEWED*: Not Applicable *COPY OF PRESCRIPTION DRUG MONITORING REPORT IN PATIENT MEJIA: Not Applicable Home Medications: Home Meds Cyanocobalamin (Vitamin B-12) [Vitamin B-12] 1,000 mcg PO DAILY #30 tablet 01/16 [Rx] Iron Polysaccharides Complex [Ferrex 150] 150 mg PO DAILY #30 cap 01/16/19 [Rx] predniSONE [Prednisone] 20 mg PO DAILY 02/08/19 [History] sulfaSALAzine 2 tab PO TID 02/08/19 [History] Oxygen Therapy Mode: Room Air Patient Handouts: Abdominal Pain, Adult, [id number] Referrals: Janelle Dela Cruz NP [Primary Care Provider] - 02/24/19 9:00 am (Arrive 15 minutes early with a photo ID and insurance card. ) Radha Franco MD [Ordering Only Provider] - 02/24/19 4:00 pm (Arrive 15 minutes early with a photo ID and insurance card. ) - Discharge Summary/Plan Comment DC Time >30 min.: No - Patient Data Vitals - Most Recent: Last Vital Signs Temp 99.3 F 02/10/19 15:00 Pulse 102 H 02/10/19 15:00 Resp 18 02/10/19 15:00 BP 120/62 02/10/19 15:00 Pulse Ox 97 02/10/19 15:00 Weight - Most Recent: 52.2 kg I&O - Last 24 hours: Intake & Output 02/10/19 02/10/19 02/10/19 06:59 14:59 22:59 Intake Total 1323 2446 840 Output Total 1250 1650 Balance 73 2446 -810 Lab Results - Last 24 hrs: Laboratory Results - last 24 hr 02/10/19 02/10/19 02/10/19 Range/Units 05:25 05:55 05:55 WBC 27.39 H (4.0-11.0) K/uL RBC 4.63 (4.30-5.90) M/uL Hgb 11.7 L (12.0-16.0) g/dL Hct 35.7 L (36.0-46.0) % MCV 77.1 L (80.0-98.0) fL MCH 25.3 L (27.0-32.0) pg MCHC 32.8 (31.0-37.0) g/dL Plt Count 362 (150-400) K/uL MPV 9.20 (7.40-12.00) fL Neut % (Auto) 85.8 H (48.0-80.0) % Lymph % (Auto) 7.2 L (16.0-40.0) % [place] % (Auto) 6.8 (0.0-15.0) % Eos % (Auto) 0.1 (0.0-7.0) % Baso % (Auto) 0.1 (0.0-1.5) % Neut # (Auto) 23.5 H (1.4-5.7) K/uL Lymph # (Auto) 2.0 (0.6-2.4) K/uL [place] # (Auto) 1.9 H (0.0-0.8) K/uL Eos # (Auto) 0.0 (0.0-0.7) K/uL Baso # (Auto) 0.0 (0.0-0.1) K/uL Nucleated RBC % 0.0 /100WBC Nucleated RBCs # 0 K/uL Lactate (0.20-2.00) mmol/L Sodium 137 (136-145) mmol/L Potassium 3.3 L (3.5-5.1) mmol/L Chloride 104 (98-107) mmol/L Carbon Dioxide 21.8 (21.0-32.0) mmol/L BUN 6 L (7.0-18.0) mg/dL Creatinine 0.8 (0.6-1.0) mg/dL Est Cr Clr Drug Dosing 92.44 mL/min Estimated GFR (MDRD) > 60.0 ml/min Glucose 95 (74-106) mg/dL Calcium 8.2 L (8.5-10.1) mg/dL Phosphorus 4.1 (2.6-4.7) mg/dL Magnesium 1.4 L (1.8-2.4) mg/dL AST 17 (15-37) IU/L ALT 15 (14-63) IU/L Alkaline Phosphatase 54 (46-116) U/L Urine Color Urine Appearance Urine pH (5.0-8.0) Ur Specific [place] (1.001-1.035) Urine Protein (NEGATIVE) mg/dL Urine Glucose (UA) (NEGATIVE) mg/dL Urine Ketones (NEGATIVE) mg/dL Urine Occult Blood (NEGATIVE) Urine Nitrite (NEGATIVE) Urine Bilirubin (NEGATIVE) Urine Urobilinogen (<2.0) EU/dL Ur Leukocyte Esterase (NEGATIVE) Urine RBC (0-2/HPF) Urine WBC (0-5/HPF) Ur Epithelial Cells (NONE-FEW) Amorphous Sediment (NEGATIVE) Urine Bacteria (NEGATIVE) Urine Mucus (NONE-MOD) Urine HCG, Qual (NEGATIVE) 02/10/19 02/10/19 02/10/19 Range/Units 10:58 11:04 11:35 WBC (4.0-11.0) K/uL RBC (4.30-5.90) M/uL Hgb (12.0-16.0) g/dL Hct (36.0-46.0) % MCV (80.0-98.0) fL MCH (27.0-32.0) pg MCHC (31.0-37.0) g/dL Plt Count (150-400) K/uL MPV (7.40-12.00) fL Neut % (Auto) (48.0-80.0) % Lymph % (Auto) (16.0-40.0) % [place] % (Auto) (0.0-15.0) % Eos % (Auto) (0.0-7.0) % Baso % (Auto) (0.0-1.5) % Neut # (Auto) (1.4-5.7) K/uL Lymph # (Auto) (0.6-2.4) K/uL [place] # (Auto) (0.0-0.8) K/uL Eos # (Auto) (0.0-0.7) K/uL Baso # (Auto) (0.0-0.1) K/uL Nucleated RBC % /100WBC Nucleated RBCs # K/uL Lactate 0.7 (0.20-2.00) mmol/L Sodium (136-145) mmol/L Potassium (3.5-5.1) mmol/L Chloride (98-107) mmol/L Carbon Dioxide (21.0-32.0) mmol/L BUN (7.0-18.0) mg/dL Creatinine (0.6-1.0) mg/dL Est Cr Clr Drug Dosing mL/min Estimated GFR (MDRD) ml/min Glucose (74-106) mg/dL Calcium (8.5-10.1) mg/dL Phosphorus (2.6-4.7) mg/dL Magnesium (1.8-2.4) mg/dL AST (15-37) IU/L ALT (14-63) IU/L Alkaline Phosphatase (46-116) U/L Urine Color DARK YELLOW Urine Appearance CLOUDY Urine pH 6.0 (5.0-8.0) Ur Specific [place] >= 1.030 (1.001-1.035) Urine Protein 100 H (NEGATIVE) mg/dL Urine Glucose (UA) NEGATIVE (NEGATIVE) mg/dL Urine Ketones >=80 (NEGATIVE) mg/dL Urine Occult Blood LARGE H (NEGATIVE) Urine Nitrite NEGATIVE (NEGATIVE) Urine Bilirubin NEGATIVE (NEGATIVE) Urine Urobilinogen 0.2 (<2.0) EU/dL Ur Leukocyte Esterase TRACE H (NEGATIVE) Urine RBC 125-150 (0-2/HPF) Urine WBC 4-8 (0-5/HPF) Ur Epithelial Cells FEW (NONE-FEW) Amorphous Sediment LIGHT (NEGATIVE) Urine Bacteria 2+ H (NEGATIVE) Urine Mucus NOT SEEN (NONE-MOD) Urine HCG, Qual NEGATIVE (NEGATIVE) JERO Results - Last 24 hrs: Microbiology 02/10/19 11:38 Anaerobic Blood Culture - Final Blood - Venous - Lab Draw 02/10/19 11:13 Anaerobic Blood Culture - Final Blood - Venous 02/09/19 01:40 Campylobacter Antigen Assay - Final Stool / Feces NEGATIVE CAMPYLOBACTER AG REFERENCE RANGE: NEGATIVE Shiga Toxin I - Final NEGATIVE FOR SHIGA TOXIN 1 REFERENCE RANGE: NEGATIVE Shiga Toxin II - Final NEGATIVE FOR SHIGA TOXIN 2 REFERENCE RANGE: NEGATIVE Med Orders - Current: Current Medications Acetaminophen (Tylenol) 650 mg PO Q4H PRN PRN Reason: Pain (Mild 1-3)/fever Last Admin: 02/09/19 20:22 Dose: 650 mg Al Hydroxide/Mg Hydroxide (Mag-Al Plus) 30 ml PO Q6H PRN PRN Reason: Heartburn Last Admin: 02/09/19 22:05 Dose: 30 ml Cyanocobalamin (Vitamin B12) 1,000 mcg PO DAILY [facility] Last Admin: 02/10/19 08:53 Dose: 1,000 mcg Sodium Chloride (Normal Saline) 1,000 mls @ 100 mls/hr IV ASDIRECTED [facility] Last Admin: 02/10/19 06:20 Dose: 100 mls/hr Lactated Ringer's (Ringers, Lactated) 500 mls @ 999 mls/hr IV .BOLUS [facility] Last Admin: 02/10/19 12:54 Dose: 999 mls/hr Potassium Chloride 40 meq/ (Premix) 100 mls @ 25 mls/hr IV ONETIME ONE Stop: 02/10/19 18:09 Vancomycin HCl 0.75 gm/ Sodium (Chloride) 250 mls @ 166.667 mls/hr IV Q8H DONNIE Last Admin: 02/10/19 13:12 Dose: 166.667 mls/hr Magnesium Sulfate 2 gm/ Premix 50 mls @ 25 mls/hr IV ONETIME ONE Stop: 02/10/19 18:44 Last Admin: 02/10/19 16:42 Dose: 25 mls/hr Morphine Sulfate (Morphine) 2 mg IVPUSH Q6H PRN PRN Reason: Pain (severe 7-10) Last Admin: 02/10/19 16:42 Dose: 2 mg Ondansetron HCl (Zofran Odt) 4 mg PO Q4H PRN PRN Reason: nausea, able to take PO Ondansetron HCl (Zofran) 4 mg IVPUSH Q4H PRN PRN Reason: Nausea Last Admin: 02/09/19 22:02 Dose: 4 mg Polysaccharide Iron Complex (Ferrex 150) 150 mg PO DAILY [facility] Last Admin: 02/10/19 08:53 Dose: 150 mg Sodium Chloride (Saline Flush) 10 ml FLUSH ASDIRECTED PRN PRN Reason: Keep Vein Open Sodium Chloride (Saline Flush) 2.5 ml FLUSH ASDIRECTED PRN PRN Reason: Keep Vein Open Sulfasalazine (Sulfasalazine) 1,000 mg PO TID [facility] Last Admin: 02/10/19 14:21 Dose: 1,000 mg Vancomycin HCl (Vancomycin) 125 mg PO Q6H [facility] Last Admin: 02/10/19 16:43 Dose: 125 mg Vancomycin HCl (Pharmacy To Dose - Vancomycin) 1 dose .XX ASDIRECTED [facility] Discontinued Medications Al Hydroxide/Mg Hydroxide (Mag-Al Plus) 30 ml PO ONETIME STA Stop: 02/08/19 22:43 Last Admin: 02/08/19 22:56 Dose: 30 ml Al Hydroxide/Mg Hydroxide 15 (ml/ Lidocaine HCl 5 ml) 0 ml PO ONETIME ONE Stop: 02/08/19 15:04 Last Admin: 02/08/19 15:19 Dose: 1 each Sodium Chloride (Normal Saline) 1,000 mls @ 999 mls/hr IV STAT ONE Stop: 02/08/19 15:19 Last Admin: 02/08/19 14:55 Dose: 999 mls/hr Ciprofloxacin/Dextrose 400 mg/ (Premix) 200 mls @ 200 mls/hr IV Q12H [facility] Last Admin: 02/10/19 06:21 Dose: 200 mls/hr Metronidazole 500 mg/ Premix 100 mls @ 100 mls/hr IV Q8H [facility] Last Admin: 02/08/19 20:44 Dose: Not Given Sodium Chloride (Normal Saline) 1,000 mls @ 75 mls/hr IV STAT ONE Stop: 02/09/19 08:31 Last Admin: 02/08/19 19:54 Dose: 75 mls/hr Pantoprazole Sodium 40 mg/ (Sodium Chloride) 10 mls @ 300 mls/hr IV DAILY DONNIE Last Admin: 02/09/19 08:05 Dose: 300 mls/hr Metronidazole 500 mg/ Premix 100 mls @ 100 mls/hr IV Q8H [facility] Last Admin: 02/10/19 04:33 Dose: 100 mls/hr Pantoprazole Sodium 40 mg/ (Sodium Chloride) 10 mls @ 300 mls/hr IV NOW ONE Stop: 02/08/19 22:43 Last Admin: 02/08/19 22:56 Dose: 300 mls/hr Sodium Chloride (Normal Saline) 1,000 mls @ 100 mls/hr IV ASDIRECTED [facility] Sodium Chloride (Normal Saline) 1,000 mls @ 100 mls/hr IV ONETIME ONE Stop: 02/10/19 02:56 Last Admin: 02/09/19 17:05 Dose: 100 mls/hr Pantoprazole Sodium 40 mg/ (Sodium Chloride) 10 mls @ 300 mls/hr IV NOW STA Stop: 02/09/19 21:47 Last Admin: 02/09/19 22:06 Dose: 300 mls/hr Lactated Ringer's (Ringers, Lactated) 1,000 mls @ 999 mls/hr IV .BOLUS ONE Stop: 02/10/19 12:02 Last Admin: 02/10/19 11:15 Dose: 999 mls/hr Piperacillin Sod/Tazobactam (Sod 4.5 gm/ Sodium Chloride) 100 mls @ 100 mls/hr IV ONETIME ONE Stop: 02/10/19 12:03 Last Admin: 02/10/19 15:25 Dose: 100 mls/hr Vancomycin HCl 0.75 gm/ Sodium (Chloride) 250 mls @ 166.667 mls/hr IV Q8H [facility] Last Admin: 02/10/19 13:23 Dose: Not Given Magnesium Sulfate 2 gm/ Premix 50 mls @ 25 mls/hr IV ONETIME ONE Stop: 02/10/19 14:09 Last Admin: 02/10/19 16:51 Dose: Not Given Influenza Virus Vaccine (Pharmacy To Dose - Influenza Vaccine) 1 each IM ONETIME ONE Stop: 02/08/19 18:57 Influenza Virus Vaccine (Fluzone Quad 0937-7594 Syringe) 60 mcg IM .ONCE ONE Stop: 02/09/19 09:01 Iopamidol (Isovue Multipack-370 (76%)) 64 ml IVPUSH ONETIME STA Stop: 02/10/19 14:15 Last Admin: 02/10/19 14:14 Dose: 64 ml Morphine Sulfate (Morphine) 2 mg IVPUSH Q2H PRN PRN Reason: Pain (severe 7-10) Stop: 02/09/19 19:11 Last Admin: 02/08/19 22:48 Dose: 2 mg Morphine Sulfate (Morphine) 2 mg IVPUSH Q4H PRN PRN Reason: Pain (severe 7-10) Stop: 02/09/19 19:11 Prednisone (Prednisone) 40 mg PO ASDIRECTED [facility] Prednisone (Prednisone) 20 mg PO WITHBREAKFAST [facility] Last Admin: 02/09/19 08:04 Dose: 20 mg <Too Madrigal - Last Filed: 02/12/19 20:15> Discharge Summary - Hospital Course HPI Initial Comments: I have seen and evaluated the patient and agree with the residents note unless specified in my note - Referral to Home Health Primary Care Physician: Janelle Dela Cruz NP - Discharge Diagnosis/Problem(s) (1) C. difficile diarrhea SNOMED Code(s): 2176366445280 ICD Code: A04.72 - ENTEROCOLITIS D/T CLOSTRIDIUM DIFFICILE, NOT SPCF RECUR Status: Acute (2) Abdominal pain SNOMED Code(s): 00899859 ICD Code: R10.9 - UNSPECIFIED ABDOMINAL PAIN Status: Acute (3) History of ulcerative colitis SNOMED Code(s): 296792648 ICD Code: Z87.19 - PERSONAL HISTORY OF OTHER DISEASES OF THE DIGESTIVE SYSTEM Status: Acute (4) Colitis SNOMED Code(s): 45582654 ICD Code: K52.9 - NONINFECTIVE GASTROENTERITIS AND COLITIS, UNSPECIFIED Status: Acute (5) GI bleeding SNOMED Code(s): 63041045 ICD Code: K92.2 - GASTROINTESTINAL HEMORRHAGE, UNSPECIFIED Status: Acute - Patient Data Vitals - Most Recent: Last Vital Signs Temp 37.4 C 02/10/19 15:00 Pulse 102 H 02/10/19 15:00 Resp 18 02/10/19 15:00 BP 120/62 02/10/19 15:00 Pulse Ox 97 02/10/19 15:00 JERO Results - Last 24 hrs: Microbiology 02/10/19 11:38 Aerobic Blood Culture - Preliminary Blood - Venous - Lab Draw NO GROWTH AFTER 2 DAYS Anaerobic Blood Culture - Final 02/10/19 11:13 Aerobic Blood Culture - Preliminary Blood - Venous NO GROWTH AFTER 2 DAYS Anaerobic Blood Culture - Final Med Orders - Current: Current Medications Discontinued Medications Acetaminophen (Tylenol) 650 mg PO Q4H PRN PRN Reason: Pain (Mild 1-3)/fever Last Admin: 02/09/19 20:22 Dose: 650 mg Al Hydroxide/Mg Hydroxide (Mag-Al Plus) 30 ml PO ONETIME STA Stop: 02/08/19 22:43 Last Admin: 02/08/19 22:56 Dose: 30 ml Al Hydroxide/Mg Hydroxide (Mag-Al Plus) 30 ml PO Q6H PRN PRN Reason: Heartburn Last Admin: 02/09/19 22:05 Dose: 30 ml Al Hydroxide/Mg Hydroxide 15 (ml/ Lidocaine HCl 5 ml) 0 ml PO ONETIME ONE Stop: 02/08/19 15:04 Last Admin: 02/08/19 15:19 Dose: 1 each Cyanocobalamin (Vitamin B12) 1,000 mcg PO DAILY [facility] Last Admin: 02/10/19 08:53 Dose: 1,000 mcg Sodium Chloride (Normal Saline) 1,000 mls @ 999 mls/hr IV STAT ONE Stop: 02/08/19 15:19 Last Admin: 02/08/19 14:55 Dose: 999 mls/hr Ciprofloxacin/Dextrose 400 mg/ (Premix) 200 mls @ 200 mls/hr IV Q12H [facility] Last Admin: 02/10/19 06:21 Dose: 200 mls/hr Metronidazole 500 mg/ Premix 100 mls @ 100 mls/hr IV Q8H [facility] Last Admin: 02/08/19 20:44 Dose: Not Given Sodium Chloride (Normal Saline) 1,000 mls @ 75 mls/hr IV STAT ONE Stop: 02/09/19 08:31 Last Admin: 02/08/19 19:54 Dose: 75 mls/hr Pantoprazole Sodium 40 mg/ (Sodium Chloride) 10 mls @ 300 mls/hr IV DAILY [facility] Last Admin: 02/09/19 08:05 Dose: 300 mls/hr Metronidazole 500 mg/ Premix 100 mls @ 100 mls/hr IV Q8H [facility] Last Admin: 02/10/19 04:33 Dose: 100 mls/hr Pantoprazole Sodium 40 mg/ (Sodium Chloride) 10 mls @ 300 mls/hr IV NOW ONE Stop: 02/08/19 22:43 Last Admin: 02/08/19 22:56 Dose: 300 mls/hr Sodium Chloride (Normal Saline) 1,000 mls @ 100 mls/hr IV ASDIRECTED [facility] Sodium Chloride (Normal Saline) 1,000 mls @ 100 mls/hr IV ONETIME ONE Stop: 02/10/19 02:56 Last Admin: 02/09/19 17:05 Dose: 100 mls/hr Pantoprazole Sodium 40 mg/ (Sodium Chloride) 10 mls @ 300 mls/hr IV NOW STA Stop: 02/09/19 21:47 Last Admin: 02/09/19 22:06 Dose: 300 mls/hr Sodium Chloride (Normal Saline) 1,000 mls @ 100 mls/hr IV ASDIRECTED [facility] Last Admin: 02/10/19 06:20 Dose: 100 mls/hr Lactated Ringer's (Ringers, Lactated) 1,000 mls @ 999 mls/hr IV .BOLUS ONE Stop: 02/10/19 12:02 Last Admin: 02/10/19 11:15 Dose: 999 mls/hr Piperacillin Sod/Tazobactam (Sod 4.5 gm/ Sodium Chloride) 100 mls @ 100 mls/hr IV ONETIME ONE Stop: 02/10/19 12:03 Last Admin: 02/10/19 15:25 Dose: 100 mls/hr Vancomycin HCl 0.75 gm/ Sodium (Chloride) 250 mls @ 166.667 mls/hr IV Q8H [facility] Last Admin: 02/10/19 13:23 Dose: Not Given Lactated Ringer's (Ringers, Lactated) 500 mls @ 999 mls/hr IV .BOLUS [facility] Last Admin: 02/10/19 12:54 Dose: 999 mls/hr Magnesium Sulfate 2 gm/ Premix 50 mls @ 25 mls/hr IV ONETIME ONE Stop: 02/10/19 14:09 Last Admin: 02/10/19 16:51 Dose: Not Given Potassium Chloride 40 meq/ (Premix) 100 mls @ 25 mls/hr IV ONETIME ONE Stop: 02/10/19 18:09 Last Admin: 02/10/19 19:51 Dose: Not Given Vancomycin HCl 0.75 gm/ Sodium (Chloride) 250 mls @ 166.667 mls/hr IV Q8H DONNIE Last Admin: 02/10/19 13:12 Dose: 166.667 mls/hr Magnesium Sulfate 2 gm/ Premix 50 mls @ 25 mls/hr IV ONETIME ONE Stop: 02/10/19 18:44 Last Admin: 02/10/19 16:42 Dose: 25 mls/hr Influenza Virus Vaccine (Pharmacy To Dose - Influenza Vaccine) 1 each IM ONETIME ONE Stop: 02/08/19 18:57 Influenza Virus Vaccine (Fluzone Quad Syringe) 60 mcg IM .ONCE ONE Stop: 02/09/19 09:01 Iopamidol (Isovue Multipack-370 (76%)) 64 ml IVPUSH ONETIME STA Stop: 02/10/19 14:15 Last Admin: 02/10/19 14:14 Dose: 64 ml Morphine Sulfate (Morphine) 2 mg IVPUSH Q2H PRN PRN Reason: Pain (severe 7-10) Stop: 02/09/19 19:11 Last Admin: 02/08/19 22:48 Dose: 2 mg Morphine Sulfate (Morphine) 2 mg IVPUSH Q4H PRN PRN Reason: Pain (severe 7-10) Stop: 02/09/19 19:11 Morphine Sulfate (Morphine) 2 mg IVPUSH Q6H PRN PRN Reason: Pain (severe 7-10) Last Admin: 02/10/19 16:42 Dose: 2 mg Ondansetron HCl (Zofran Odt) 4 mg PO Q4H PRN PRN Reason: nausea, able to take PO Ondansetron HCl (Zofran) 4 mg IVPUSH Q4H PRN PRN Reason: Nausea Last Admin: 02/09/19 22:02 Dose: 4 mg Polysaccharide Iron Complex (Ferrex 150) 150 mg PO DAILY [facility] Last Admin: 02/10/19 08:53 Dose: 150 mg Prednisone (Prednisone) 40 mg PO ASDIRECTED [facility] Prednisone (Prednisone) 20 mg PO WITHBREAKFAST [facility] Last Admin: 02/09/19 08:04 Dose: 20 mg Sodium Chloride (Saline Flush) 10 ml FLUSH ASDIRECTED PRN PRN Reason: Keep Vein Open Sodium Chloride (Saline Flush) 2.5 ml FLUSH ASDIRECTED PRN PRN Reason: Keep Vein Open Sulfasalazine (Sulfasalazine) 1,000 mg PO TID [facility] Last Admin: 02/10/19 14:21 Dose: 1,000 mg Vancomycin HCl (Vancomycin) 125 mg PO Q6H [facility] Last Admin: 02/10/19 16:43 Dose: 125 mg Vancomycin HCl (Pharmacy To Dose - Vancomycin) 1 dose .XX ASDIRECTED [facility]
== END 2019-02-10 17:00 ==
LOC: MW.ED 13:45 → MW.MS 18:19
PROVIDERS: ADMIT Internal Medicine; ATTEND Internal Medicine
DX: A04.72 Enterocolitis due to Clostridium difficile, not specified as recurrent (principal); K92.1 Melena; D72.829 Elevated white blood cell count, unspecified; D47.3 Essential (hemorrhagic) thrombocythemia; K58.9 Irritable bowel syndrome, unspecified; Z87.19 Personal history of other diseases of the digestive system
CPT/HCPCS: 36415; 74177; 80048; 80053; 81001; 81025; 83605; 83735; 84075; 84100; 84450; 84460; 84484; 85018; 85025; 86140; 87040; 87046; 87324; 87328; 87329; 87899; 96360; 96361; 99284; A9270; C9113; J0744; J2270; J2405; J2543; J3370; J3475; J3490; J7030; J7040; J7050; J7120; Q9967

== ENCOUNTER 2019-05-19 22:34 | Emergency (ER) | payer BC, MEDICAID ==
[2019-05-19] MEDS ORDERED: Ondansetron 4 MG/2 ML SDV IVPUSH ONE (23:26)
[2019-05-19] MEDS ORDERED: Sodium Chloride 0.9% 1,000 ML IV ONE (23:26)
[2019-05-19] MEDS ORDERED: methylPREDNISolone Sodium Succinate 125 MG/2 ML SDV IVPUSH ONE (23:28)
[2019-05-20 00:03] LABS: BLOOD UREA NITROGEN,BUN 7 mg/dL (7.0-18.0); CARBON DIOXIDE,CO2 24.2 mmol/L (21.0-32.0); CHLORIDE,CL 105 mmol/L (98-107); GLUCOSE RANDOM 82 mg/dL (74-106); POTASSIUM,K 3.2 mmol/L (3.5-5.1); SODIUM,NA 142 mmol/L (136-145)
[2019-05-20] MEDS ORDERED: Iopamidol 755 MG/ML 200 ML Multipack Bottle IVPUSH STA (00:18)
--- NOTE | 2019-05-20 01:00 | CT ---
INDICATION: Abdominal pain TECHNIQUE: CT abdomen and pelvis acquired with IV contrast. 100 mL of Isovue 370 administered. COMPARISON: 02/10/2019 FINDINGS: Lower chest: Unremarkable. Liver: Unremarkable. Spleen: A small low-density area again seen at the superior aspect of the spleen which could be related to small perisplenic fluid or a small chronic superior splenic infarct. Pancreas: Unremarkable. Gallbladder and bile ducts: Unremarkable. Adrenal glands: Unremarkable. Kidneys: Unremarkable. Gastrointestinal tract: Resolution of the previously seen gastric wall thickening and edema. No mechanical bowel obstruction. Few nondilated fluid-filled small bowel segments are nonspecific. Mild enhancement of the mid to distal appendiceal wall, without abnormal appendiceal dilatation, and the appendix has decreased in caliber compared to the prior study. Mild wall thickening in the proximal rectum, partially related to under distension. Vascular structures: Unremarkable. Lymph nodes: Unremarkable. Miscellaneous: No free air. Pelvic Organs: No discrete uterine or bladder abnormality seen. A peripherally enhancing left adnexal low-density structure consistent with an involuting physiologic follicle. Bones: Unremarkable for age. IMPRESSION: Mild wall thickening in the proximal rectum could be partially related to under distention, however correlate clinically for mild proctitis. Nonspecific fluid-filled small bowel segments. Correlate clinically to exclude mild enteritis. Mild appendiceal wall enhancement, however without significant appendiceal dilatation, and the appendix has decreased in caliber compared to the prior study. Correlate clinically. If there is high clinical concern, repeat imaging of only the appendiceal region, 1-2 hours following the administration of oral contrast, may be of value. Dictated by Oren Yeh MD @ 05/20/2019 1:00:17 AM Please note that all CT scans at this facility use dose modulation, iterative reconstruction, and/or weight-based dosing when appropriate to reduce radiation dose to as low as reasonably achievable. Dictated by: Oren Yeh MD @ 05/20/2019 01:00:23 (Electronically Signed)
--- NOTE | 2019-05-20 02:24 | EDM.PDOC ---
ED HPI GENERAL MEDICAL PROBLEM - General Chief Complaint: Abdominal Pain Stated Complaint: ABDOMINAL PAIN, FEVER Time Seen by Provider: 05/19/19 23:20 Source of Information: Reports: Patient - History of Present Illness INITIAL COMMENTS - FREE TEXT/NARRATIVE: CC bloody diarrhea HPI: This is a 18-year-old female who back in January was diagnosed with C. difficile. She also had a colonoscopy that possibly suggested colitis from the C. difficile versus ulcerative colitis. A definitive diagnosis was not made patient presents again with a few day history of bloody diarrhea more than 10 episodes a day she is had no vomiting or fever but she has diffuse abdominal tenderness. PMHX/PSHX: No surgeries in the past. Otherwise negative medical history Social History: Negative for tobacco, negative for alcohol, negative for street drugs or marijuana Family history: Hypertension ROS: see chart PE: VS afebrile vital signs stable General: No apparent distress Head: Atraumatic normocephalic no lumps bumps or bruises Eyes: EOMI PERRLA scera white, conjuntiva pink Ears: TMs intact. No hemotympanum. No signs of infection or mastoid tenderness Nose: No epistaxis. Nares patent. No septal wall hematoma Throat: No pharyngeal erythema, exudate or tonsillar enlargement Neck: Supple. No cervical lymphadenopathy Chest wall: No point tenderness Heart: Regular rate and rhythm without murmur gallop or rub Lungs: Clear to auscultation and percussion without rale, rhonchi or wheeze. Abdomen: Soft diffusely tender nondistended without guarding rigidity or rebound. Bowel sounds present. Neck: No spinal point tenderness full range of motion in all 6 directions Back: No spinal paraspinal or CVA tenderness Extremities: Full range of motion through out. No effusions Skin: Warm, dry and intact. No rashes, erythema or warmth Neurologic: Cranial nerves II through XII intact bilaterally. No focal motor or sensory deficits noted MDM: Differential diagnosis: Ulcerative colitis flare colitis appendicitis megacolon ED course: CBC showed some anemia which is slightly below the patient's baseline. Compress metabolic profile lactate are negative CT scan shows some mild perirectal inflammation but is otherwise negative. Case discussed with the doctor covering for Dr. 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 They recommend we do not start this patient on antibiotics but do give her a tapering course of steroids patient's been given IV Solu-Medrol here. She is been unable to provide us with a stool sample here. She elects not to be admitted to the hospital will follow up with her implementation specialist payroll in the morning Final Diagnosis: Pain, lower GI bleed Disposition: Home Abdomen Pain Score (Numeric/FACES): 8 - Related Data Allergies Allergy/AdvReac Type Severity Reaction Status Date / Time No Known Allergies Allergy Verified 05/19/19 23:04 Home Meds: Home Meds sulfaSALAzine 2 tab PO TID 02/08/19 [History] Past Medical History - Past Health History Medical/Surgical History: Denies Medical/Surgical History HEENT History: Reports: Other (See Below) Other HEENT History: tonsillitis Gastrointestinal History: Reports: Irritable Bowel Syndrome, Other (See Below) Other Gastrointestinal History: History of Ulcerative Colitis in [facility], came to the ER with Hg of 5.8 and recral bleeding, received 3 units PRBC, Hg now 10.7 [employer] History: Reports: Other (See Below) Other [employer] History: Bacterial vaginitis, yeast infection Psychiatric History: Reports: ADHD - Past Surgical History GI Surgical History: Reports: None, Colonoscopy Social & Family History - Family History Family Medical History: Noncontributory - Tobacco Use Smoking Status *Q: Never Smoker - Caffeine Use Caffeine Use: Reports: Soda Other Caffeine Use: seldom ED ROS GENERAL - Review of Systems Review Of Systems: Comprehensive ROS is negative, except as noted in HPI. ED EXAM, GI/ABD - Physical Exam Exam: See Below Course - Vital Signs Last Recorded V/S: Last Vital Signs Temp 37.0 C 05/20/19 01:48 Pulse 98 05/20/19 01:48 Resp 18 05/20/19 01:48 BP 137/77 05/20/19 01:48 Pulse Ox 99 05/20/19 01:48 - Orders/Labs/Meds Labs: Laboratory Tests 05/19/19 05/19/19 05/19/19 Range/Units 23:00 23:31 23:31 WBC 11.52 H (4.0-11.0) K/uL RBC 3.87 L (4.30-5.90) M/uL Hgb 9.6 L (12.0-16.0) g/dL Hct 30.4 L (36.0-46.0) % MCV 78.6 L (80.0-98.0) fL MCH 24.8 L (27.0-32.0) pg MCHC 31.6 (31.0-37.0) g/dL RDW Std Deviation 39.9 (28.0-62.0) fl RDW Coeff of Buck 14 (11.0-15.0) % Plt Count 654 H (150-400) K/uL MPV 8.70 (7.40-12.00) fL Neut % (Auto) 66.8 (48.0-80.0) % Lymph % (Auto) 23.6 (16.0-40.0) % [place] % (Auto) 6.8 (0.0-15.0) % Eos % (Auto) 2.3 (0.0-7.0) % Baso % (Auto) 0.5 (0.0-1.5) % Neut # (Auto) 7.7 H (1.4-5.7) K/uL Lymph # (Auto) 2.7 H (0.6-2.4) K/uL [place] # (Auto) 0.8 (0.0-0.8) K/uL Eos # (Auto) 0.3 (0.0-0.7) K/uL Baso # (Auto) 0.1 (0.0-0.1) K/uL Nucleated RBC % 0.0 /100WBC Nucleated RBCs # 0 K/uL Lactate 1.2 (0.20-2.00) mmol/L Sodium (136-145) mmol/L Potassium (3.5-5.1) mmol/L Chloride (98-107) mmol/L Carbon Dioxide (21.0-32.0) mmol/L BUN (7.0-18.0) mg/dL Creatinine (0.6-1.0) mg/dL Est Cr Clr Drug Dosing mL/min Estimated GFR (MDRD) ml/min Glucose (74-106) mg/dL Calcium (8.5-10.1) mg/dL Total Bilirubin (0.2-1.0) mg/dL AST (15-37) IU/L ALT (14-63) IU/L Alkaline Phosphatase (46-116) U/L Total Protein (6.4-8.2) g/dL Albumin (3.4-5.0) g/dL Globulin (2.6-4.0) g/dL Albumin/Globulin Ratio (0.9-1.6) HCG, Qual (NEG) Urine Color YELLOW Urine Appearance CLEAR Urine pH 6.5 (5.0-8.0) Ur Specific [place] 1.015 (1.001-1.035) Urine Protein NEGATIVE (NEGATIVE) mg/dL Urine Glucose (UA) NEGATIVE (NEGATIVE) mg/dL Urine Ketones NEGATIVE (NEGATIVE) mg/dL Urine Occult Blood TRACE-LYSED H (NEGATIVE) Urine Nitrite NEGATIVE (NEGATIVE) Urine Bilirubin NEGATIVE (NEGATIVE) Urine Urobilinogen 0.2 (<2.0) EU/dL Ur Leukocyte Esterase NEGATIVE (NEGATIVE) Urine RBC 1-2 (0-2/HPF) Urine WBC 0-1 (0-5/HPF) Ur Epithelial Cells RARE (NONE-FEW) Urine Bacteria RARE (NEGATIVE) 05/19/19 05/19/19 Range/Units 23:31 23:31 WBC (4.0-11.0) K/uL RBC (4.30-5.90) M/uL Hgb (12.0-16.0) g/dL Hct (36.0-46.0) % MCV (80.0-98.0) fL MCH (27.0-32.0) pg MCHC (31.0-37.0) g/dL RDW Std Deviation (28.0-62.0) fl RDW Coeff of Buck (11.0-15.0) % Plt Count (150-400) K/uL MPV (7.40-12.00) fL Neut % (Auto) (48.0-80.0) % Lymph % (Auto) (16.0-40.0) % [place] % (Auto) (0.0-15.0) % Eos % (Auto) (0.0-7.0) % Baso % (Auto) (0.0-1.5) % Neut # (Auto) (1.4-5.7) K/uL Lymph # (Auto) (0.6-2.4) K/uL [place] # (Auto) (0.0-0.8) K/uL Eos # (Auto) (0.0-0.7) K/uL Baso # (Auto) (0.0-0.1) K/uL Nucleated RBC % /100WBC Nucleated RBCs # K/uL Lactate (0.20-2.00) mmol/L Sodium 142 (136-145) mmol/L Potassium 3.2 L (3.5-5.1) mmol/L Chloride 105 (98-107) mmol/L Carbon Dioxide 24.2 (21.0-32.0) mmol/L BUN 7 (7.0-18.0) mg/dL Creatinine 0.9 (0.6-1.0) mg/dL Est Cr Clr Drug Dosing 85.68 mL/min Estimated GFR (MDRD) > 60.0 ml/min Glucose 82 (74-106) mg/dL Calcium 9.2 (8.5-10.1) mg/dL Total Bilirubin 0.1 L (0.2-1.0) mg/dL AST 18 (15-37) IU/L ALT 25 (14-63) IU/L Alkaline Phosphatase 59 (46-116) U/L Total Protein 8.1 (6.4-8.2) g/dL Albumin 3.3 L (3.4-5.0) g/dL Globulin 4.8 H (2.6-4.0) g/dL Albumin/Globulin Ratio 0.7 L (0.9-1.6) HCG, Qual NEGATIVE (NEG) Urine Color Urine Appearance Urine pH (5.0-8.0) Ur Specific [place] (1.001-1.035) Urine Protein (NEGATIVE) mg/dL Urine Glucose (UA) (NEGATIVE) mg/dL Urine Ketones (NEGATIVE) mg/dL Urine Occult Blood (NEGATIVE) Urine Nitrite (NEGATIVE) Urine Bilirubin (NEGATIVE) Urine Urobilinogen (<2.0) EU/dL Ur Leukocyte Esterase (NEGATIVE) Urine RBC (0-2/HPF) Urine WBC (0-5/HPF) Ur Epithelial Cells (NONE-FEW) Urine Bacteria (NEGATIVE) Meds: Medications Discontinued Medications Generic Name Dose Route Start Last Admin Trade Name Freq PRN Reason Stop Dose Admin Sodium Chloride 1,000 mls @ 1,000 mls/hr 05/19/19 23:26 05/19/19 23:33 Normal Saline IV 05/20/19 00:25 1,000 mls/hr .Bolus ONE Administration Iopamidol 100 ml 05/20/19 00:18 05/20/19 00:23 Isovue Multipack-370 (76%) IVPUSH 05/20/19 00:19 100 ml ONETIME STA Administration Methylprednisolone Sodium Succinate 125 mg 05/19/19 23:28 05/19/19 23:35 Solu-Medrol IVPUSH 05/19/19 23:29 125 mg ONETIME ONE Administration Ondansetron HCl 4 mg 05/19/19 23:26 05/19/19 23:33 Zofran IVPUSH 05/19/19 23:27 4 mg ONETIME ONE Administration Departure - Departure Time of Disposition: :23 Disposition: Home, Self-Care 01 Clinical Impression: Diarrhea Qualifiers: Diarrhea type: unspecified type Qualified Code(s): R19.7 - Diarrhea, unspecified - Discharge Information Instructions: Diarrhea, Adult, Diarrhea, Adult, [id number] Referrals: PCP,Not In Area [Primary Care Provider] - Additional Instructions: The following information is given to patients seen in the emergency department who are being discharged to home. This information is to outline your options for follow-up care. We provide all patients seen in our emergency department with a follow-up referral. The need for follow-up, as well as the timing and circumstances, are variable depending upon the specifics of your emergency department visit. If you don't have a primary care physician on staff, we will provide you with a referral. We always advise you to contact your personal physician following an emergency department visit to inform them of the circumstance of the visit and for follow-up with them and/or the need for any referrals to a consulting specialist. The emergency department will also refer you to a specialist when appropriate. This referral assures that you have the opportunity for follow-up care with a specialist. All of these measure are taken in an effort to provide you with optimal care, which includes your follow-up. Under all circumstances we always encourage you to contact your private physician who remains a resource for coordinating your care. When calling for follow-up care, please make the office aware that this follow-up is from your recent emergency room visit. If for any reason you are refused follow-up, please contact the [facility] Emergency Department at and asked to speak to the emergency department charge nurse. Avoid dairy Call your implementation specialist payroll first thing in the morning. Sepsis Event Note - Evaluation Sepsis Screening Result: No Definite Risk - Focused Exam Vital Signs: Vital Signs Temp Pulse Resp BP Pulse Ox 05/20/19 01:48 37.0 C 98 18 137/77 99 05/20/19 00:47 106 H 20 111/66 98 05/19/19 23:52 111/64 05/19/19 23:37 109 H 109/69 05/19/19 23:02 37.1 C 142 H 16 116/51 L 96 Date Exam was Performed: 05/20/19 Time Exam was Performed: 02:20
== END 2019-05-20 02:37 | disposition home or self-care (01) ==
LOC: MW.ED 22:34
DX: K92.2 Gastrointestinal hemorrhage, unspecified (principal); R19.7 Diarrhea, unspecified; Z79.899 Other long term (current) drug therapy
CPT/HCPCS: 36415; 74177; 80053; 81001; 83605; 84703; 85025; 96361; 96374; 96375; 99284; J2405; J2930; J7030; Q9967; 99283

== ENCOUNTER 2019-07-28 05:21 | Inpatient (IN) | payer BC, MEDICAID ==
[2019-07-28] MEDS ORDERED: Ondansetron 4 MG/2 ML SDV IVPUSH ONE ×2 (05:32→08:14)
[2019-07-28] MEDS ORDERED: Sodium Chloride 0.9% 10 ML Syringe FLUSH PRN (05:32)
[2019-07-28] MEDS ORDERED: Sodium Chloride 0.9% 1,000 ML IV ONE (05:32)
[2019-07-28] MEDS ORDERED: Morphine 4 MG/ML Syringe IVPUSH ONE ×2 (05:32→06:33)
[2019-07-28] MEDS ORDERED: Sodium Chloride 0.9% 2.5 ML Syringe FLUSH PRN (05:32)
[2019-07-28] MEDS ORDERED: Sodium Chloride 0.9% 10 ML SDV IV ONE (05:39)
--- NOTE | 2019-07-28 05:43 | EDM.PDOC ---
<Jae Mccarthy - Last Filed: 07/28/19 06:56> ED HPI GENERAL MEDICAL PROBLEM - General Chief Complaint: Abdominal Pain Stated Complaint: VOMITING, ulcerative colitis Time Seen by Provider: 07/28/19 05:24 Source of Information: Reports: Patient History Limitations: Reports: No Limitations - History of Present Illness INITIAL COMMENTS - FREE TEXT/NARRATIVE: History of present illness: [Patient is 19-year-old female with a history of ulcerative colitis who presents to the ER with abdominal pain for the last day. She has associated nausea and vomiting as well. Last month she had a flareup of colitis, was admitted to the hospital, started on antibiotics, eventually switched to oral vancomycin, steroid enemas, and mesalamine enemas as well. 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 Says that she takes prednisone to manage her ulcerative colitis. Has Tylenol at home for pain, but has not tried anything else and denies having other pain meds at home. Denies fever, chest pain, shortness of breath. Denies any known sick contacts.] Review of systems: As per history of present illness and below otherwise all systems reviewed and negative. Past medical history: As per history of present illness and as reviewed below otherwise noncontributory. Surgical history: As per history of present illness and as reviewed below otherwise noncontributory. Social history: No reported history of drug or alcohol abuse. Family history: As per history of present illness and as reviewed below otherwise noncontributory. Physical exam: General: Awake, alert, mild distress, A&O X3. HEENT: Atraumatic, normocephalic, pupils reactive, negative for conjunctival pallor or scleral icterus, mucous membranes moist, throat clear, neck supple, nontender, trachea midline. Lungs: Clear to auscultation, breath sounds equal bilaterally, chest nontender. Heart: tachycardic, normal S1S2, no JVD. Abdomen: Soft, nondistended, mildly diffusely tender, but no rebound or guarding. Negative for masses or hepatosplenomegaly. Pelvis: Stable nontender. Genitourinary: Deferred. Rectal: Deferred. Extremities: Atraumatic, no edema, Neurovascular unremarkable. Neuro: Motor and sensory grossly intact throughout. Exam nonfocal. Diagnostics: [] Therapeutics: [] Impression: [] Plan: [] Definitive disposition and diagnosis as appropriate pending reevaluation and review of above. Abdomen Pain Score (Numeric/FACES): 8 - Related Data Allergies Allergy/AdvReac Type Severity Reaction Status Date / Time No Known Allergies Allergy Verified 07/28/19 05:38 Home Meds: Home Meds predniSONE [Prednisone] 20 mg PO DAILY 07/28/19 [History] Past Medical History - Past Health History Medical/Surgical History: Denies Medical/Surgical History HEENT History: Reports: Other (See Below) Other HEENT History: tonsillitis Cardiovascular History: Reports: None Respiratory History: Reports: None Gastrointestinal History: Reports: Irritable Bowel Syndrome, Other (See Below) Other Gastrointestinal History: History of Ulcerative Colitis Genitourinary History: Reports: None CUSTOMER SOLUTIONS TEAMMATE History: Reports: Other (See Below) Other CUSTOMER SOLUTIONS TEAMMATE History: Bacterial vaginitis, yeast infection Musculoskeletal History: Reports: None Neurological History: Reports: None Psychiatric History: Reports: ADHD Endocrine/Metabolic History: Reports: None Insulin Pump Model and Resawyer: N/A Hematologic History: Reports: Other (See Below) Other Hematologic History: Blood Transfussions 2018 Immunologic History: Reports: None Oncologic (Cancer) History: Reports: None Dermatologic History: Reports: None - Infectious Disease History Infectious Disease History: Reports: C-Difficile - Past Surgical History Head Surgeries/Procedures: Reports: None GI Surgical History: Reports: None, Colonoscopy Female Surgical History: Reports: None Social & Family History - Family History Family Medical History: Noncontributory - Caffeine Use Caffeine Use: Reports: None Other Caffeine Use: seldom ED ROS GENERAL - Review of Systems Review Of Systems: Comprehensive ROS is negative, except as noted in HPI. ED EXAM, GI/ABD - Physical Exam Exam: See Below (see h and p) Course - Vital Signs Text/Narrative:: I signed this patient out to the oncoming physician, Dr. Marshall, CT scan of the abdomen was pending at that time. Please see his documentation for eventual disposition for this patient. She was hemodynamically stable at the time of signout. Last Recorded V/S: Last Vital Signs Temp 97.1 F 07/28/19 07:20 Pulse 104 H 07/28/19 07:20 Resp 16 07/28/19 07:20 BP 127/80 07/28/19 07:20 Pulse Ox 99 07/28/19 07:20 - Orders/Labs/Meds Orders: Active Orders 24 hr Category Date Time Status CALCIUM [CHEM] Stat Lab 07/28/19 08:14 Ordered MAGNESIUM [CHEM] Stat Lab 07/28/19 08:14 Ordered MVI, Adult with Vitamin K [Infuvite Adult] 10 ml Med 07/28/19 08:15 Active Thiamine [Vitamin B-1] 100 mg Folic Acid 1 mg Sodium Chloride 0.9% [Normal Saline] 1,000 ml IV ONETIME Potassium Chloride Riders [KCL 20 MEQ in Water 50 ML] Med 07/28/19 08:15 Active 20 meq Premix Bag 1 bag IV ONETIME Sodium Chloride 0.9% [Saline Flush] Med 07/28/19 05:32 Active 10 ml FLUSH ASDIRECTED PRN Sodium Chloride 0.9% [Saline Flush] Med 07/28/19 05:32 Active 2.5 ml FLUSH ASDIRECTED PRN Saline Lock Insert [OM.PC] Stat Oth 07/28/19 05:32 Ordered Medication Orders Potassium Chloride 20 meq/ (Premix) 50 mls @ 25 mls/hr IV ONETIME ONE Stop: 07/28/19 10:14 Multivitamins/Minerals 10 ml/Thiamine HCl 100 mg/ Folic Acid 1 mg/ Sodium Chloride 1,011.2 mls @ 120 mls/hr IV ONETIME ONE Stop: 07/28/19 16:40 Sodium Chloride (Saline Flush) 10 ml FLUSH ASDIRECTED PRN PRN Reason: Keep Vein Open Sodium Chloride (Saline Flush) 2.5 ml FLUSH ASDIRECTED PRN PRN Reason: Keep Vein Open Labs: Laboratory Tests 07/28/19 07/28/19 07/28/19 Range/Units 05:35 05:35 06:00 WBC 18.23 H (4.0-11.0) K/uL RBC 4.00 L (4.30-5.90) M/uL Hgb 9.3 L (12.0-16.0) g/dL Hct 30.6 L (36.0-46.0) % MCV 76.5 L (80.0-98.0) fL MCH 23.3 L (27.0-32.0) pg MCHC 30.4 L (31.0-37.0) g/dL RDW Std Deviation 56.9 (28.0-62.0) fl RDW Coeff of Buck 21 H (11.0-15.0) % Plt Count 523 H (150-400) K/uL MPV 9.00 (7.40-12.00) fL Neut % (Auto) 71.9 (48.0-80.0) % Lymph % (Auto) 16.3 (16.0-40.0) % [place] % (Auto) 11.3 (0.0-15.0) % Eos % (Auto) 0.3 (0.0-7.0) % Baso % (Auto) 0.2 (0.0-1.5) % Neut # (Auto) 13.1 H (1.4-5.7) K/uL Lymph # (Auto) 3.0 H (0.6-2.4) K/uL [place] # (Auto) 2.1 H (0.0-0.8) K/uL Eos # (Auto) 0.1 (0.0-0.7) K/uL Baso # (Auto) 0.0 (0.0-0.1) K/uL Nucleated RBC % 0.0 /100WBC Nucleated RBCs # 0 K/uL Lactate (0.20-2.00) mmol/L Sodium (136-145) mmol/L Potassium (3.5-5.1) mmol/L Chloride (98-107) mmol/L Carbon Dioxide (21.0-32.0) mmol/L BUN (7.0-18.0) mg/dL Creatinine (0.6-1.0) mg/dL Est Cr Clr Drug Dosing mL/min Estimated GFR (MDRD) ml/min Glucose (74-106) mg/dL Calcium (8.5-10.1) mg/dL Total Bilirubin (0.2-1.0) mg/dL AST (15-37) IU/L ALT (14-63) IU/L Alkaline Phosphatase (46-116) U/L Total Protein (6.4-8.2) g/dL Albumin (3.4-5.0) g/dL Globulin (2.6-4.0) g/dL Albumin/Globulin Ratio (0.9-1.6) Lipase (73-393) U/L Urine Color YELLOW Urine Appearance CLOUDY Urine pH 7.5 (5.0-8.0) Ur Specific [place] 1.015 (1.001-1.035) Urine Protein NEGATIVE (NEGATIVE) mg/dL Urine Glucose (UA) NEGATIVE (NEGATIVE) mg/dL Urine Ketones 40 H (NEGATIVE) mg/dL Urine Occult Blood MODERATE H (NEGATIVE) Urine Nitrite NEGATIVE (NEGATIVE) Urine Bilirubin SMALL H (NEGATIVE) Urine Ictotest NEGATIVE Urine Urobilinogen 0.2 (<2.0) EU/dL Ur Leukocyte Esterase TRACE H (NEGATIVE) Urine RBC 6-8 (0-2/HPF) Urine WBC 0-2 (0-5/HPF) Ur Epithelial Cells FEW (NONE-FEW) Amorphous Sediment MODERATE (NEGATIVE) Urine Bacteria FEW (NEGATIVE) Urine HCG, Qual NEGATIVE (NEGATIVE) 07/28/19 07/28/19 Range/Units 06:00 06:00 WBC (4.0-11.0) K/uL RBC (4.30-5.90) M/uL Hgb (12.0-16.0) g/dL Hct (36.0-46.0) % MCV (80.0-98.0) fL MCH (27.0-32.0) pg MCHC (31.0-37.0) g/dL RDW Std Deviation (28.0-62.0) fl RDW Coeff of Buck (11.0-15.0) % Plt Count (150-400) K/uL MPV (7.40-12.00) fL Neut % (Auto) (48.0-80.0) % Lymph % (Auto) (16.0-40.0) % [place] % (Auto) (0.0-15.0) % Eos % (Auto) (0.0-7.0) % Baso % (Auto) (0.0-1.5) % Neut # (Auto) (1.4-5.7) K/uL Lymph # (Auto) (0.6-2.4) K/uL [place] # (Auto) (0.0-0.8) K/uL Eos # (Auto) (0.0-0.7) K/uL Baso # (Auto) (0.0-0.1) K/uL Nucleated RBC % /100WBC Nucleated RBCs # K/uL Lactate 0.6 (0.20-2.00) mmol/L Sodium 137 (136-145) mmol/L Potassium 3.1 L (3.5-5.1) mmol/L Chloride 102 (98-107) mmol/L Carbon Dioxide 24.9 (21.0-32.0) mmol/L BUN 13 (7.0-18.0) mg/dL Creatinine 0.8 (0.6-1.0) mg/dL Est Cr Clr Drug Dosing 87.80 mL/min Estimated GFR (MDRD) > 60.0 ml/min Glucose 82 (74-106) mg/dL Calcium 8.3 L (8.5-10.1) mg/dL Total Bilirubin 0.3 (0.2-1.0) mg/dL AST 11 L (15-37) IU/L ALT 20 (14-63) IU/L Alkaline Phosphatase 67 (46-116) U/L Total Protein 6.7 (6.4-8.2) g/dL Albumin 3.1 L (3.4-5.0) g/dL Globulin 3.6 (2.6-4.0) g/dL Albumin/Globulin Ratio 0.9 (0.9-1.6) Lipase 41 L (73-393) U/L Urine Color Urine Appearance Urine pH (5.0-8.0) Ur Specific [place] (1.001-1.035) Urine Protein (NEGATIVE) mg/dL Urine Glucose (UA) (NEGATIVE) mg/dL Urine Ketones (NEGATIVE) mg/dL Urine Occult Blood (NEGATIVE) Urine Nitrite (NEGATIVE) Urine Bilirubin (NEGATIVE) Urine Ictotest Urine Urobilinogen (<2.0) EU/dL Ur Leukocyte Esterase (NEGATIVE) Urine RBC (0-2/HPF) Urine WBC (0-5/HPF) Ur Epithelial Cells (NONE-FEW) Amorphous Sediment (NEGATIVE) Urine Bacteria (NEGATIVE) Urine HCG, Qual (NEGATIVE) Meds: Medications Generic Name Dose Route Start Last Admin Trade Name Freq PRN Reason Stop Dose Admin Potassium Chloride 20 meq/ 50 mls @ 25 mls/hr 07/28/19 08:15 Premix IV 07/28/19 10:14 ONETIME ONE Multivitamins/Minerals 10 ml/ 1,011.2 mls @ 120 mls/hr 07/28/19 08:15 Thiamine HCl 100 mg/ Folic IV 07/28/19 16:40 Acid 1 mg/ Sodium Chloride ONETIME ONE Sodium Chloride 10 ml 07/28/19 05:32 Saline Flush FLUSH ASDIRECTED PRN Keep Vein Open Sodium Chloride 2.5 ml 07/28/19 05:32 Saline Flush FLUSH ASDIRECTED PRN Keep Vein Open Discontinued Medications Generic Name Dose Route Start Last Admin Trade Name Freq PRN Reason Stop Dose Admin Sodium Chloride 1,000 mls @ 999 mls/hr 07/28/19 05:32 07/28/19 05:45 Normal Saline IV 07/28/19 06:32 999 mls/hr BOLUS ONE Administration Iopamidol 75 ml 07/28/19 07:06 07/28/19 07:07 Isovue-370 (76%) IVPUSH 07/28/19 07:07 75 ml ONETIME STA Administration Methylprednisolone Sodium Succinate 80 mg 07/28/19 08:15 Solu-Medrol IV 07/28/19 08:16 ONETIME ONE Morphine Sulfate 4 mg 07/28/19 05:32 07/28/19 05:47 Morphine IVPUSH 07/28/19 05:33 4 mg ONETIME ONE Administration Morphine Sulfate 4 mg 07/28/19 06:33 07/28/19 07:10 Morphine IVPUSH 07/28/19 06:34 4 mg ONETIME ONE Administration Morphine Sulfate 6 mg 07/28/19 08:13 Morphine IVPUSH 07/28/19 08:14 ONETIME ONE Ondansetron HCl 4 mg 07/28/19 05:32 07/28/19 05:45 Zofran IVPUSH 07/28/19 05:33 4 mg ONETIME ONE Administration Ondansetron HCl 4 mg 07/28/19 08:14 Zofran IVPUSH 07/28/19 08:15 ONETIME ONE Sodium Chloride 1,000 ml 07/28/19 05:39 07/28/19 06:40 Normal Saline IV 07/28/19 05:40 Not Given ONETIME ONE Departure - Departure Disposition: Refer to Observation Clinical Impression: Ulcerative colitis, Hypokalemia - Discharge Information Referrals: Janelle Dela Cruz [facility] [Primary Care Provider] - Forms: ED Department Discharge Sepsis Event Note - Evaluation Sepsis Screening Result: No Definite Risk - Focused Exam Vital Signs: Vital Signs Temp Pulse Resp BP Pulse Ox 07/28/19 07:20 97.1 F 104 H 16 127/80 99 07/28/19 06:23 81 14 129/78 98 07/28/19 05:24 97.1 F 142 H 14 154/88 H 98 Date Exam was Performed: 07/28/19 Time Exam was Performed: 06:56 - My Orders Last 24 Hours: My Active Orders 07/28/19 08:14 CALCIUM [CHEM] Stat MAGNESIUM [CHEM] Stat 07/28/19 08:15 MVI, Adult with Vitamin K [Infuvite Adult] 10 ml Thiamine [Vitamin B-1] 100 mg Folic Acid 1 mg Sodium Chloride 0.9% [Normal Saline] 1,000 ml IV ONETIME Potassium Chloride Riders [KCL 20 MEQ in Water 50 ML] 20 meq Premix Bag 1 bag IV ONETIME - Assessment/Plan Last 24 Hours: My Active Orders 07/28/19 08:14 CALCIUM [CHEM] Stat MAGNESIUM [CHEM] Stat 07/28/19 08:15 MVI, Adult with Vitamin K [Infuvite Adult] 10 ml Thiamine [Vitamin B-1] 100 mg Folic Acid 1 mg Sodium Chloride 0.9% [Normal Saline] 1,000 ml IV ONETIME Potassium Chloride Riders [KCL 20 MEQ in Water 50 ML] 20 meq Premix Bag 1 bag IV ONETIME <Domenico Marshall - Last Filed: 07/28/19 08:28> ED HPI GENERAL MEDICAL PROBLEM - History of Present Illness INITIAL COMMENTS - FREE TEXT/NARRATIVE: Assumed Care of patient patient CT scan shows ulcerative colitis. Garima the case with her primary care physician Dr. Kilpatrick who thinks the patient is stable to stay in [place] and started on steroids. He will arrange for her to get Biologics within the near future. Patient will be admitted to observation I discussed the case with Dr. Cedeño since potassium is low at this time at 3.1 we will correct that give her more fluids, banana bag and medication Departure - Departure Time of Disposition: 08:26 Condition: Good Sepsis Event Note - Focused Exam Date Exam was Performed: 07/28/19 Time Exam was Performed: 08:21
[2019-07-28 06:28] LABS: BLOOD UREA NITROGEN,BUN 13 mg/dL (7.0-18.0); CARBON DIOXIDE,CO2 24.9 mmol/L (21.0-32.0); CHLORIDE,CL 102 mmol/L (98-107); GLUCOSE RANDOM 82 mg/dL (74-106); LIPASE 41 U/L (73-393); POTASSIUM,K 3.1 mmol/L (3.5-5.1); SODIUM,NA 137 mmol/L (136-145)
[2019-07-28] MEDS ORDERED: Iopamidol 755 Mg/ML 100 ML Bottle IVPUSH STA (07:06)
--- NOTE | 2019-07-28 07:42 | CT ---
CT abdomen and pelvis Technique: Multiple axial sections were obtained from above the dome of the diaphragm inferiorly through the pubic symphysis. Intravenous contrast was utilized. No oral contrast has been given. Comparison: Prior CT abdomen and pelvis exam of 02/10/19. Visualized lung bases show nothing acute. Liver shows no focal parenchymal abnormality. There is a small amount of fat around the ligamentum teres fissure which is felt to be normal. Spleen appears within normal limits. Adrenal glands show no nodule. Kidneys show symmetric contrast enhancement. Small cortical scar is noted within the mid right kidney which is stable. Kidneys are otherwise unremarkable. Pancreas shows no discrete abnormality. Gallbladder contains no calcified gallstones. Aorta shows no aneurysm. No retroperitoneal adenopathy is seen. Mild areas of wall thickening are scattered throughout the colon. No free fluid or inflammatory change is appreciated. Appendix is not visualized with certainty. Bone window settings were reviewed which show nothing acute. Impression: 1. Mild but diffuse wall thickening throughout the colon. Findings are compatible with clinical history of ulcerative colitis. No acute inflammatory change is seen. Findings are fairly stable from previous exam. 2. Other findings believed to be incidental and nonacute as noted above. Diagnostic code #3 This report was dictated in MDT
[2019-07-28] MEDS ORDERED: Morphine 10 MG/ML Syringe IVPUSH ONE (08:13)
[2019-07-28] MEDS ORDERED: methylPREDNISolone Sodium Succinate 125 MG/2 ML SDV IV ONE (08:15)
[2019-07-28] MEDS ORDERED: Potassium Chloride Riders 20 MEQ in Premix Bag 1 BAG IV ONE (08:15)
[2019-07-28] MEDS ORDERED: MVI, Adult with Vitamin K 10 ML, Thiamine 100 MG, Folic Acid 1 MG in Sodium Chloride 0.... IV ONE ×4 (08:15)
[2019-07-28] MEDS ORDERED: Pantoprazole 40 MG Vial IV SCH (09:15)
[2019-07-28] MEDS ORDERED: Magnesium Sulfate/Water 2 GM in Premix Bag 1 BAG IV ONE (09:18)
--- NOTE | 2019-07-28 09:30 | PCM.HP.2 ---
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 She reports she had recent colonscopy with Dr Seymour, July 20. Upon review of records, this showed active ulcerative colitis disease in distal ascending, transverse, descending and rectosigmoid colon. Dr Seymour is currently arranging biologic therapy. She denies fevers or chills, no chest pain or shortness of breathing. Reports all over abdominal pain, gets chills with the diarrhea which is common for her. She reports she has some lightheadedness with ambulation and moving too fast. She started to decrease steroid taper, which started July 02 from discharge out of [facility]. She is supposed to be taking 20 mg now, from 30 mg x 20 days. In the ED leukocytosis noted at 18,230, hgb 9.3 and hct 30.6, Na 137, K+ 3.1, Mag 1.7, UA negative HCG negative. Abd/pelvis CT obtained which revealed mild but diffuse wall thickening throughout the colon, compatible with ulcerative colitis, no significant changes from previous exam. The ED MD contacted Dr Seymour, he recommended no transfer at this time, did recommend bolus Solumedrol 80 mg followed by 20 mg TID IV Solumedrol. She was given IV bolus in the ED along with MVI. PCP, Dr Seymour, GI specialist Abdomen Pain Score (Numeric/FACES): 6 - Related Data Allergies/Adverse Reactions: Allergies Allergy/AdvReac Type Severity Reaction Status Date / Time No Known Allergies Allergy Verified 07/28/19 09:11 Home Medications: Home Meds Famotidine 20 mg PO DAILY 07/28/19 [History] predniSONE [Prednisone] 20 mg PO .4DAYS 07/28/19 [History] Past Medical History - Past Health History Medical/Surgical History: Denies Medical/Surgical History HEENT History: Reports: Other (See Below) Other HEENT History: tonsillitis Cardiovascular History: Reports: None. Denies: CAD, High Cholesterol Respiratory History: Reports: None. Denies: Asthma, COPD Gastrointestinal History: Reports: Inflammatory Bowel Disease (ulcerative colitis), Other (See Below) (recurrent cdiff with history fecal microbiotia transplant) Genitourinary History: Reports: None ELECTRONIC TESTER History: Reports: Other (See Below) Other OB/BYN History: Bacterial vaginitis, yeast infection Musculoskeletal History: Reports: None Neurological History: Reports: None Psychiatric History: Reports: ADHD Endocrine/Metabolic History: Reports: None Insulin Pump Model and Food Adviser: N/A Hematologic History: Reports: Other (See Below) Other Hematologic History: Blood Transfussions 2018 Immunologic History: Reports: None Oncologic (Cancer) History: Reports: None Dermatologic History: Reports: None - Infectious Disease History Infectious Disease History: Reports: C-Difficile - Past Surgical History Head Surgeries/Procedures: Reports: None GI Surgical History: Reports: None, Colonoscopy Female Surgical History: Reports: None Social & Family History - Family History Family Medical History: Noncontributory - Tobacco Use Smoking Status *Q: Never Smoker Second Hand Smoke Exposure: No - Caffeine Use Caffeine Use: Reports: None Other Caffeine Use: seldom - Alcohol Use Alcohol Use History: No - Recreational Drug Use Recreational Drug Use: No H&P Review of Systems - Review of Systems: Review Of Systems: See Below General: Reports: Malaise, Weakness. Denies: Fever, Chills HEENT: Reports: No Symptoms. Denies: Headaches, Sinus Congestion, Vertigo Pulmonary: Reports: No Symptoms. Denies: Shortness of Breath Cardiovascular: Reports: No Symptoms. Denies: Chest Pain Gastrointestinal: Reports: Abdominal Pain, Anorexia, Bloody Stool, Diarrhea, Nausea, Vomiting Genitourinary: Reports: No Symptoms. Denies: Dysuria, Frequency, Burning Skin: Reports: No Symptoms Psychiatric: Reports: No Symptoms Neurological: Reports: No Symptoms Hematologic/Lymphatic: Reports: No Symptoms Immunologic: Reports: No Symptoms Exam - Exam Exam: See Below - Vital Signs Vital Signs: Last Vital Signs Temp 97.1 F 07/28/19 07:20 Pulse 102 H 07/28/19 08:54 Resp 18 07/28/19 08:54 BP 120/73 07/28/19 08:54 Pulse Ox 98 07/28/19 08:54 Weight: 49.804 kg - Exam General: Alert, Oriented, Cooperative, Other (malnourished, cachetic, thinining hair) Lungs: Clear to Auscultation, Normal Respiratory Effort Cardiovascular: Regular Rate, Regular Rhythm GI/Abdominal Exam: Normal Bowel Sounds, Soft, Tender Extremities: Normal Inspection, Normal Range of Motion, Non-Tender, No Pedal Edema Neuro Extensive - Mental Status: Alert, Oriented x3 Neuro Extensive - Motor, Sensory, Reflexes: CN II-XII Intact Psychiatric: Alert, Normal Affect, Normal Mood - Patient Data Lab Results Last 24 hrs: Laboratory Results - last 24 hr 07/28/19 07/28/19 07/28/19 Range/Units 05:35 05:35 06:00 WBC 18.23 H (4.0-11.0) K/uL RBC 4.00 L (4.30-5.90) M/uL Hgb 9.3 L (12.0-16.0) g/dL Hct 30.6 L (36.0-46.0) % MCV 76.5 L (80.0-98.0) fL MCH 23.3 L (27.0-32.0) pg MCHC 30.4 L (31.0-37.0) g/dL RDW Std Deviation 56.9 (28.0-62.0) fl RDW Coeff of Buck 21 H (11.0-15.0) % Plt Count 523 H (150-400) K/uL MPV 9.00 (7.40-12.00) fL Neut % (Auto) 71.9 (48.0-80.0) % Lymph % (Auto) 16.3 (16.0-40.0) % [place] % (Auto) 11.3 (0.0-15.0) % Eos % (Auto) 0.3 (0.0-7.0) % Baso % (Auto) 0.2 (0.0-1.5) % Neut # (Auto) 13.1 H (1.4-5.7) K/uL Lymph # (Auto) 3.0 H (0.6-2.4) K/uL [place] # (Auto) 2.1 H (0.0-0.8) K/uL Eos # (Auto) 0.1 (0.0-0.7) K/uL Baso # (Auto) 0.0 (0.0-0.1) K/uL Nucleated RBC % 0.0 /100WBC Nucleated RBCs # 0 K/uL Lactate (0.20-2.00) mmol/L Sodium (136-145) mmol/L Potassium (3.5-5.1) mmol/L Chloride (98-107) mmol/L Carbon Dioxide (21.0-32.0) mmol/L BUN (7.0-18.0) mg/dL Creatinine (0.6-1.0) mg/dL Est Cr Clr Drug Dosing mL/min Estimated GFR (MDRD) ml/min Glucose (74-106) mg/dL Calcium (8.5-10.1) mg/dL Magnesium (1.8-2.4) mg/dL Total Bilirubin (0.2-1.0) mg/dL AST (15-37) IU/L ALT (14-63) IU/L Alkaline Phosphatase (46-116) U/L Total Protein (6.4-8.2) g/dL Albumin (3.4-5.0) g/dL Globulin (2.6-4.0) g/dL Albumin/Globulin Ratio (0.9-1.6) Lipase (73-393) U/L Urine Color YELLOW Urine Appearance CLOUDY Urine pH 7.5 (5.0-8.0) Ur Specific Quinter 1.015 (1.001-1.035) Urine Protein NEGATIVE (NEGATIVE) mg/dL Urine Glucose (UA) NEGATIVE (NEGATIVE) mg/dL Urine Ketones 40 H (NEGATIVE) mg/dL Urine Occult Blood MODERATE H (NEGATIVE) Urine Nitrite NEGATIVE (NEGATIVE) Urine Bilirubin SMALL H (NEGATIVE) Urine Ictotest NEGATIVE Urine Urobilinogen 0.2 (<2.0) EU/dL Ur Leukocyte Esterase TRACE H (NEGATIVE) Urine RBC 6-8 (0-2/HPF) Urine WBC 0-2 (0-5/HPF) Ur Epithelial Cells FEW (NONE-FEW) Amorphous Sediment MODERATE (NEGATIVE) Urine Bacteria FEW (NEGATIVE) Urine HCG, Qual NEGATIVE (NEGATIVE) 07/28/19 07/28/19 07/28/19 Range/Units 06:00 06:00 06:00 WBC (4.0-11.0) K/uL RBC (4.30-5.90) M/uL Hgb (12.0-16.0) g/dL Hct (36.0-46.0) % MCV (80.0-98.0) fL MCH (27.0-32.0) pg MCHC (31.0-37.0) g/dL RDW Std Deviation (28.0-62.0) fl RDW Coeff of Buck (11.0-15.0) % Plt Count (150-400) K/uL MPV (7.40-12.00) fL Neut % (Auto) (48.0-80.0) % Lymph % (Auto) (16.0-40.0) % [place] % (Auto) (0.0-15.0) % Eos % (Auto) (0.0-7.0) % Baso % (Auto) (0.0-1.5) % Neut # (Auto) (1.4-5.7) K/uL Lymph # (Auto) (0.6-2.4) K/uL [place] # (Auto) (0.0-0.8) K/uL Eos # (Auto) (0.0-0.7) K/uL Baso # (Auto) (0.0-0.1) K/uL Nucleated RBC % /100WBC Nucleated RBCs # K/uL Lactate 0.6 (0.20-2.00) mmol/L Sodium 137 (136-145) mmol/L Potassium 3.1 L (3.5-5.1) mmol/L Chloride 102 (98-107) mmol/L Carbon Dioxide 24.9 (21.0-32.0) mmol/L BUN 13 (7.0-18.0) mg/dL Creatinine 0.8 (0.6-1.0) mg/dL Est Cr Clr Drug Dosing 87.80 mL/min Estimated GFR (MDRD) > 60.0 ml/min Glucose 82 (74-106) mg/dL Calcium 8.3 L (8.5-10.1) mg/dL Magnesium 1.7 L (1.8-2.4) mg/dL Total Bilirubin 0.3 (0.2-1.0) mg/dL AST 11 L (15-37) IU/L ALT 20 (14-63) IU/L Alkaline Phosphatase 67 (46-116) U/L Total Protein 6.7 (6.4-8.2) g/dL Albumin 3.1 L (3.4-5.0) g/dL Globulin 3.6 (2.6-4.0) g/dL Albumin/Globulin Ratio 0.9 (0.9-1.6) Lipase 41 L (73-393) U/L Urine Color Urine Appearance Urine pH (5.0-8.0) Ur Specific Quinter (1.001-1.035) Urine Protein (NEGATIVE) mg/dL Urine Glucose (UA) (NEGATIVE) mg/dL Urine Ketones (NEGATIVE) mg/dL Urine Occult Blood (NEGATIVE) Urine Nitrite (NEGATIVE) Urine Bilirubin (NEGATIVE) Urine Ictotest Urine Urobilinogen (<2.0) EU/dL Ur Leukocyte Esterase (NEGATIVE) Urine RBC (0-2/HPF) Urine WBC (0-5/HPF) Ur Epithelial Cells (NONE-FEW) Amorphous Sediment (NEGATIVE) Urine Bacteria (NEGATIVE) Urine HCG, Qual (NEGATIVE) Result Diagrams: 07/28/19 06:00 07/28/19 06:00 Sepsis Event Note - Evaluation Sepsis Screening Result: No Definite Risk - Focused Exam Vital Signs: Vital Signs Temp Pulse Resp BP Pulse Ox 07/28/19 08:54 102 H 18 120/73 98 07/28/19 07:20 97.1 F 104 H 16 127/80 99 07/28/19 06:23 81 14 129/78 98 07/28/19 05:24 97.1 F 142 H 14 154/88 H 98 Date Exam was Performed: 07/28/19 Time Exam was Performed: 11:07 - Problem List (1) Ulcerative colitis SNOMED Code(s): 51697120 ICD Code: K51.90 - ULCERATIVE COLITIS, UNSPECIFIED, WITHOUT COMPLICATIONS Status: Acute Current Visit: Yes (2) Hypokalemia SNOMED Code(s): 27443330 ICD Code: E87.6 - HYPOKALEMIA Status: Acute Current Visit: Yes (3) Abdominal pain SNOMED Code(s): 68038826 ICD Code: R10.9 - UNSPECIFIED ABDOMINAL PAIN Status: Acute Current Visit : No (4) Hx of Clostridium difficile infection SNOMED Code(s): 426049420, 471115729 ICD Code: Z86.19 - PERSONAL HISTORY OF OTHER INFECTIOUS AND PARASITIC DISEASES Status: Chronic Current Visit: Yes (5) Anemia SNOMED Code(s): 798654302 ICD Code: D64.9 - ANEMIA, UNSPECIFIED Status: Acute Current Visit: No Problem List Initiated/Reviewed/Updated: Yes Orders Last 24hrs: Active Orders 24 hr Category Date Time Status Admission Status [Patient Status] [ADT] Stat ADT 07/28/19 08:29 Active Antiembolic Devices [RC] PER UNIT ROUTINE Care 07/28/19 09:16 Active Intake and Output [RC] QSHIFT Care 07/28/19 09:15 Active Oxygen Therapy [RC] PRN Care 07/28/19 09:15 Active Up With Assistance [RC] ASDIRECTED Care 07/28/19 09:15 Active VTE/DVT Education [RC] PER UNIT ROUTINE Care 07/28/19 09:15 Active Vital Signs [RC] Q4H Care 07/28/19 09:15 Active Nothing Per Oral Diet [DIET] Diet 07/28/19 Lunch Active CBC WITH AUTO DIFF [HEME] AM Lab 07/29/19 05:11 Ordered CBC WITH AUTO DIFF [HEME] AM Lab 07/30/19 05:11 Ordered CBC WITH AUTO DIFF [HEME] AM Lab 07/31/19 05:11 Ordered COMPREHENSIVE METABOLIC PN,CMP [CHEM] AM Lab 07/29/19 05:11 Ordered COMPREHENSIVE METABOLIC PN,CMP [CHEM] AM Lab 07/30/19 05:11 Ordered COMPREHENSIVE METABOLIC PN,CMP [CHEM] AM Lab 07/31/19 05:11 Ordered MAGNESIUM [CHEM] AM Lab 07/29/19 05:11 Ordered MAGNESIUM [CHEM] AM Lab 07/30/19 05:11 Ordered MAGNESIUM [CHEM] AM Lab 07/31/19 05:11 Ordered HYDROmorphone [Dilaudid] Med 07/28/19 09:15 Ordered 0.5 mg IVPUSH Q2H PRN MVI, Adult with Vitamin K [Infuvite Adult] 10 ml Med 07/28/19 08:15 Active Thiamine [Vitamin B-1] 100 mg Folic Acid 1 mg Sodium Chloride 0.9% [Normal Saline] 1,000 ml IV ONETIME Magnesium Sulfate/Water [Magnesium Sulfate in Water Med 07/28/19 09:18 Ordered Premix] 2 gm Premix Bag 1 bag IV ONETIME Ondansetron [Zofran] Med 07/28/19 09:15 Ordered 4 mg IVPUSH Q4H PRN Pantoprazole [ProTONIX IV] Med 07/28/19 09:15 Ordered 40 mg IV Q24H Potassium Chloride Riders [KCL 20 MEQ in Water 50 ML] Med 07/28/19 08:15 Active 20 meq Premix Bag 1 bag IV ONETIME Sodium Chloride 0.9% [Normal Saline] 1,000 ml Med 07/28/19 09:15 Ordered IV Q8H Sodium Chloride 0.9% [Saline Flush] Med 07/28/19 05:32 Active 10 ml FLUSH ASDIRECTED PRN Sodium Chloride 0.9% [Saline Flush] Med 07/28/19 05:32 Active 2.5 ml FLUSH ASDIRECTED PRN methylPREDNISolone Sod Succ [Solu-MEDROL] Med 07/28/19 16:45 Ordered 20 mg IV TID Saline Lock Insert [OM.PC] Stat Oth 07/28/19 05:32 Ordered Sequential Compression Device [OM.PC] Per Unit Routine Oth 07/28/19 09:16 Ordered Resuscitation Status Routine Resus Stat 07/28/19 09:15 Ordered Medication Orders Hydromorphone HCl (Dilaudid) 0.5 mg IVPUSH Q2H PRN PRN Reason: Pain (severe 7-10) Potassium Chloride 20 meq/ (Premix) 50 mls @ 25 mls/hr IV ONETIME ONE Stop: 07/28/19 10:14 Last Admin: 07/28/19 08:45 Dose: 25 mls/hr Multivitamins/Minerals 10 ml/Thiamine HCl 100 mg/ Folic Acid 1 mg/ Sodium Chloride 1,011.2 mls @ 120 mls/hr IV ONETIME ONE Stop: 07/28/19 16:40 Last Admin: 07/28/19 08:45 Dose: 120 mls/hr Sodium Chloride (Normal Saline) 1,000 mls @ 125 mls/hr IV Q8H DONNIE Magnesium Sulfate 2 gm/ Premix 50 mls @ 50 mls/hr IV ONETIME ONE Stop: 07/28/19 10:17 Methylprednisolone Sodium Succinate (Solu-Medrol) 20 mg IV TID DONNIE Ondansetron HCl (Zofran) 4 mg IVPUSH Q4H PRN PRN Reason: Nausea Pantoprazole Sodium (Protonix Iv) 40 mg IV Q24H [facility] Sodium Chloride (Saline Flush) 10 ml FLUSH ASDIRECTED PRN PRN Reason: Keep Vein Open Sodium Chloride (Saline Flush) 2.5 ml FLUSH ASDIRECTED PRN PRN Reason: Keep Vein Open Assessment/Plan Comment:: This 19 year old female admitted with UC flare 1. Ulcerative colitis flare: - No current infectious source, no need for antibiotics currently - Solumedrol 20 mg IV TID today - Dilaudid PRN for pain - Zofran 4 mg IV PRN nausea - Replace potassium and Magnesium IV, recheck in am. - Monitor anemia. VTE prophylaxis: SCDs Dispo: 2 days - Mortality Measure Prognosis:: Good
[2019-07-28] MEDS: Pantoprazole 40 MG in Sodium Chloride 0.9% 10 ML IV SCH (10:53)
[2019-07-28] MEDS: Sodium Chloride 0.9% 1,000 ML IV SCH ×2 (13:13→17:28)
[2019-07-28] MEDS ORDERED: Sodium Chloride 0.9% with KCl 1,000 ML IV ONE ×2 (14:44→16:40)
[2019-07-28] MEDS: methylPREDNISolone Sodium Succinate 40 MG/1 ML SDV IV SCH ×2 (16:38→22:34)
[2019-07-28] MEDS: Ondansetron 4 MG/2 ML SDV IVPUSH PRN (17:21)
[2019-07-28] MEDS: HYDROmorphone 1 MG/ML Syringe IVPUSH PRN (19:51)
[2019-07-29] MEDS: Sodium Chloride 0.9% 1,000 ML IV SCH ×4 (01:35→20:19)
[2019-07-29] MEDS: HYDROmorphone 1 MG/ML Syringe IVPUSH PRN ×7 (01:36→22:28)
[2019-07-29 06:12] LABS: BLOOD UREA NITROGEN,BUN 6 mg/dL (7.0-18.0); CARBON DIOXIDE,CO2 22.1 mmol/L (21.0-32.0); CHLORIDE,CL 102 mmol/L (98-107); GLUCOSE RANDOM 97 mg/dL (74-106); POTASSIUM,K 4.4 mmol/L (3.5-5.1); SODIUM,NA 134 mmol/L (136-145)
[2019-07-29] MEDS: methylPREDNISolone Sodium Succinate 40 MG/1 ML SDV IV SCH ×3 (06:46→22:11)
[2019-07-29] MEDS ORDERED: Magnesium Sulfate/Water 2 GM in Premix Bag 1 BAG IV ONE (07:54)
--- NOTE | 2019-07-29 08:26 | PCM.PN ---
- General Info Date of Service: 07/29/19 Admission Dx/Problem (Free Text): Admission Diagnosis/Problem Admission Diagnosis/Problem Ulcerative colitis Subjective Update: Feeling slightly improved, had about 4 BMS since the evening, continues to be bloody. Pain continues. Nausea intermittently, tolerating water. No chest pain or SOB. No lightheadedness of dizziness. Functional Status: Reports: Pain Controlled, Tolerating Diet, Ambulating, Urinating - Review of Systems General: Reports: Fatigue, Malaise Pulmonary: Reports: No Symptoms. Denies: Shortness of Breath Cardiovascular: Reports: No Symptoms. Denies: Chest Pain Gastrointestinal: Reports: Abdominal Pain, Diarrhea (bloody), Nausea. Denies: Vomiting Genitourinary: Reports: No Symptoms. Denies: Dysuria, Frequency, Burning Skin: Reports: No Symptoms Neurological: Reports: No Symptoms Psychiatric: Reports: No Symptoms - Patient Data Vitals - Most Recent: Last Vital Signs Temp 97.9 F 07/29/19 08:00 Pulse 98 07/29/19 08:00 Resp 12 07/29/19 08:00 BP 108/62 07/29/19 08:00 Pulse Ox 99 07/29/19 08:00 Weight - Most Recent: 49.804 kg I&O - Last 24 Hours: Intake & Output 07/28/19 07/29/19 07/29/19 22:59 06:59 14:59 Intake Total 320 2006 Output Total 600 540 Balance -280 1466 Lab Results Last 24 Hours: Laboratory Results - last 24 hr 07/28/19 07/29/19 07/29/19 Range/Units 06:00 05:32 05:32 WBC 21.41 H (4.0-11.0) K/uL RBC 3.45 L (4.30-5.90) M/uL Hgb 8.1 L (12.0-16.0) g/dL Hct 26.5 L (36.0-46.0) % MCV 76.8 L (80.0-98.0) fL MCH 23.5 L (27.0-32.0) pg MCHC 30.6 L (31.0-37.0) g/dL RDW Std Deviation 56.2 (28.0-62.0) fl RDW Coeff of Buck 20 H (11.0-15.0) % Plt Count 507 H (150-400) K/uL MPV 9.10 (7.40-12.00) fL Add Manual Diff YES Neutrophils % (Manual) 80 (48.0-80.0) % Lymphocytes % (Manual) 13 L (16.0-40.0) % Monocytes % (Manual) 7 (0.0-15.0) % Nucleated RBC % 0.0 /100WBC Absolute Seg Neuts 17.1 H (1.4-5.7) Lymphocytes # (Manual) 2.8 H (0.6-2.4) Monocytes # (Manual) 1.5 H (0.0-0.8) Nucleated RBCs # 0 K/uL Sodium 134 L (136-145) mmol/L Potassium 4.4 (3.5-5.1) mmol/L Chloride 102 (98-107) mmol/L Carbon Dioxide 22.1 (21.0-32.0) mmol/L BUN 6 L (7.0-18.0) mg/dL Creatinine 0.7 (0.6-1.0) mg/dL Est Cr Clr Drug Dosing 99.95 mL/min Estimated GFR (MDRD) > 60.0 ml/min Glucose 97 (74-106) mg/dL Calcium 8.3 L (8.5-10.1) mg/dL Phosphorus 4.1 (2.6-4.7) mg/dL Magnesium 1.7 L 1.6 L (1.8-2.4) mg/dL Total Bilirubin 0.3 (0.2-1.0) mg/dL AST 5 L (15-37) IU/L ALT 13 L (14-63) IU/L Alkaline Phosphatase 65 (46-116) U/L Total Protein 6.0 L (6.4-8.2) g/dL Albumin 2.6 L (3.4-5.0) g/dL Globulin 3.4 (2.6-4.0) g/dL Albumin/Globulin Ratio 0.8 L (0.9-1.6) Med Orders - Current: Current Medications Hydromorphone HCl (Dilaudid) 0.5 mg IVPUSH Q2H PRN PRN Reason: Pain (severe 7-10) Last Admin: 07/29/19 08:15 Dose: 0.5 mg Sodium Chloride (Normal Saline) 1,000 mls @ 125 mls/hr IV Q8H [facility] Last Admin: 07/29/19 01:35 Dose: 125 mls/hr Pantoprazole Sodium 40 mg/ (Sodium Chloride) 10 mls @ 300 mls/hr IV Q24H [facility] Last Admin: 07/28/19 10:53 Dose: 300 mls/hr Magnesium Sulfate 2 gm/ Premix 50 mls @ 50 mls/hr IV ONETIME ONE Stop: 07/29/19 08:53 Last Admin: 07/29/19 08:12 Dose: 50 mls/hr Methylprednisolone Sodium Succinate (Solu-Medrol) 20 mg IV TID DONNIE Last Admin: 07/29/19 06:46 Dose: 20 mg Ondansetron HCl (Zofran) 4 mg IVPUSH Q4H PRN PRN Reason: Nausea Last Admin: 07/28/19 17:21 Dose: 4 mg Sodium Chloride (Saline Flush) 10 ml FLUSH ASDIRECTED PRN PRN Reason: Keep Vein Open Sodium Chloride (Saline Flush) 2.5 ml FLUSH ASDIRECTED PRN PRN Reason: Keep Vein Open Discontinued Medications Sodium Chloride (Normal Saline) 1,000 mls @ 999 mls/hr IV BOLUS ONE Stop: 07/28/19 06:32 Last Admin: 07/28/19 05:45 Dose: 999 mls/hr Potassium Chloride 20 meq/ (Premix) 50 mls @ 25 mls/hr IV ONETIME ONE Stop: 07/28/19 10:14 Last Admin: 07/28/19 08:45 Dose: 25 mls/hr Multivitamins/Minerals 10 ml/Thiamine HCl 100 mg/ Folic Acid 1 mg/ Sodium Chloride 1,011.2 mls @ 120 mls/hr IV ONETIME ONE Stop: 07/28/19 16:40 Last Admin: 07/28/19 08:45 Dose: 120 mls/hr Magnesium Sulfate 2 gm/ Premix 50 mls @ 50 mls/hr IV ONETIME ONE Stop: 07/28/19 10:17 Last Admin: 07/28/19 10:58 Dose: 50 mls/hr Potassium Chloride/Sodium Chloride (Normal Saline With 40 Meq Kcl) 1,000 mls @ 125 mls/hr IV ONETIME ONE Stop: 07/28/19 22:43 Last Admin: 07/28/19 16:13 Dose: Not Given Potassium Chloride/Sodium Chloride (Normal Saline With 40 Meq Kcl) 1,000 mls @ 125 mls/hr IV ONETIME ONE Stop: 07/29/19 00:39 Last Admin: 07/28/19 17:26 Dose: 125 mls/hr Iopamidol (Isovue-370 (76%)) 75 ml IVPUSH ONETIME STA Stop: 07/28/19 07:07 Last Admin: 07/28/19 07:07 Dose: 75 ml Methylprednisolone Sodium Succinate (Solu-Medrol) 80 mg IV ONETIME ONE Stop: 07/28/19 08:16 Last Admin: 07/28/19 08:43 Dose: 80 mg Morphine Sulfate (Morphine) 4 mg IVPUSH ONETIME ONE Stop: 07/28/19 05:33 Last Admin: 07/28/19 05:47 Dose: 4 mg Morphine Sulfate (Morphine) 4 mg IVPUSH ONETIME ONE Stop: 07/28/19 06:34 Last Admin: 07/28/19 07:10 Dose: 4 mg Morphine Sulfate (Morphine) 6 mg IVPUSH ONETIME ONE Stop: 07/28/19 08:14 Last Admin: 07/28/19 08:43 Dose: 6 mg Ondansetron HCl (Zofran) 4 mg IVPUSH ONETIME ONE Stop: 07/28/19 05:33 Last Admin: 07/28/19 05:45 Dose: 4 mg Ondansetron HCl (Zofran) 4 mg IVPUSH ONETIME ONE Stop: 07/28/19 08:15 Last Admin: 07/28/19 08:43 Dose: 4 mg Sodium Chloride (Normal Saline) 1,000 ml IV ONETIME ONE Stop: 07/28/19 05:40 Last Admin: 07/28/19 06:40 Dose: Not Given - Exam General: Alert, Oriented, Cooperative, No Acute Distress Lungs: Clear to Auscultation, Normal Respiratory Effort Cardiovascular: Regular Rate, Regular Rhythm GI/Abdominal Exam: Normal Bowel Sounds, Soft, Tender (diffusely) Extremities: Normal Inspection, Normal Range of Motion, Non-Tender, No Pedal Edema Neurological: No New Focal Deficit Psy/Mental Status: Alert, Normal Affect, Normal Mood Sepsis Event Note - Evaluation Sepsis Screening Result: No Definite Risk - Focused Exam Vital Signs: Vital Signs Temp Pulse Resp BP Pulse Ox 07/29/19 08:00 97.9 F 98 12 108/62 99 07/29/19 04:00 98.3 F 82 16 114/68 98 07/29/19 00:00 97.5 F 85 16 113/58 L 99 Date Exam was Performed: 07/29/19 Time Exam was Performed: 08:27 - Problem List & Annotations (1) Ulcerative colitis SNOMED Code(s): 42923735 Code(s): K51.90 - ULCERATIVE COLITIS, UNSPECIFIED, WITHOUT COMPLICATIONS Status: Acute Current Visit: Yes (2) Hypokalemia SNOMED Code(s): 14443126 Code(s): E87.6 - HYPOKALEMIA Status: Acute Current Visit: Yes (3) Abdominal pain SNOMED Code(s): 25616126 Code(s): R10.9 - UNSPECIFIED ABDOMINAL PAIN Status: Acute Current Visit: No (4) Hx of Clostridium difficile infection SNOMED Code(s): 090451636, 735896891 Code(s): Z86.19 - PERSONAL HISTORY OF OTHER INFECTIOUS AND PARASITIC DISEASES Status: Chronic Current Visit: Yes (5) Anemia SNOMED Code(s): 086328717 Code(s): D64.9 - ANEMIA, UNSPECIFIED Status: Acute Current Visit: No - Problem List Review Problem List Initiated/Reviewed/Updated: Yes - My Orders Last 24 Hours: My Active Orders 07/28/19 09:15 Intake and Output [RC] Q12H Oxygen Therapy [RC] PRN Up With Assistance [RC] ASDIRECTED VTE/DVT Education [RC] PER UNIT ROUTINE Vital Signs [RC] Q4H HYDROmorphone [Dilaudid] 0.5 mg IVPUSH Q2H PRN Ondansetron [Zofran] 4 mg IVPUSH Q4H PRN Sodium Chloride 0.9% [Normal Saline] 1,000 ml IV Q8H Resuscitation Status Routine 07/28/19 09:16 Antiembolic Devices [RC] PER UNIT ROUTINE Sequential Compression Device [OM.PC] Per Unit Routine 07/28/19 10:00 Pantoprazole [ProTONIX IV] 40 mg Sodium Chloride 0.9% [Normal Saline] 10 ml IV Q24H 07/28/19 16:45 methylPREDNISolone Sod Succ [Solu-MEDROL] 20 mg IV TID 07/28/19 Dinner Clear Liquid Diet [DIET] 07/29/19 07:54 Magnesium Sulfate/Water [Magnesium Sulfate in Water Premix] 2 gm Premix Bag 1 bag IV ONETIME 07/30/19 05:11 CBC WITH AUTO DIFF [HEME] AM COMPREHENSIVE METABOLIC PN,CMP [CHEM] AM MAGNESIUM [CHEM] AM PHOSPHORUS [CHEM] AM 07/31/19 05:11 CBC WITH AUTO DIFF [HEME] AM COMPREHENSIVE METABOLIC PN,CMP [CHEM] AM MAGNESIUM [CHEM] AM PHOSPHORUS [CHEM] AM - Plan Plan:: This 19 year old female admitted with UC flare 1. Ulcerative colitis flare: - No current infectious source, no need for antibiotics currently - Diarrhea secondary to UC flare, 4 BMs overnight. - Continue Solumedrol 20 mg IV TID - Dilaudid PRN for pain - Zofran 4 mg IV PRN nausea - NS 100 mls/hr today - Monitor anemia. - Will contact Dr Seymour, patient reports she got a call from pharmacy that her biologics were approved. Will discuss with him when they should be started or if follow up with him is needed first VTE prophylaxis: SCDs Dispo: Slow improvement, length of stay likely greater than 2 midnights.
[2019-07-29] MEDS: Pantoprazole 40 MG in Sodium Chloride 0.9% 10 ML IV SCH (10:18)
[2019-07-29] MEDS: Ondansetron 4 MG/2 ML SDV IVPUSH PRN (13:26)
[2019-07-30] MEDS: HYDROmorphone 1 MG/ML Syringe IVPUSH PRN ×7 (01:11→21:06)
[2019-07-30] MEDS: Sodium Chloride 0.9% 1,000 ML IV SCH ×2 (06:25→16:43)
[2019-07-30] MEDS: methylPREDNISolone Sodium Succinate 40 MG/1 ML SDV IV SCH ×3 (06:26→21:13)
[2019-07-30 06:42] LABS: BLOOD UREA NITROGEN,BUN 6 mg/dL (7.0-18.0); CARBON DIOXIDE,CO2 25.1 mmol/L (21.0-32.0); CHLORIDE,CL 101 mmol/L (98-107); GLUCOSE RANDOM 88 mg/dL (74-106); SODIUM,NA 136 mmol/L (136-145)
[2019-07-30] MEDS ORDERED: Magnesium Sulfate/Water 2 GM in Premix Bag 1 BAG IV ONE (07:58)
--- NOTE | 2019-07-30 09:53 | PCM.PN ---
- General Info Date of Service: 07/30/19 Admission Dx/Problem (Free Text): Admission Diagnosis/Problem Admission Diagnosis/Problem Ulcerative colitis Subjective Update: Feeling improved. Pain is stable. 3 BMs overnight. Nausea improved. Functional Status: Reports: Pain Controlled, Tolerating Diet, Ambulating, Urinating - Review of Systems Pulmonary: Reports: No Symptoms. Denies: Shortness of Breath Cardiovascular: Reports: No Symptoms. Denies: Chest Pain Gastrointestinal: Reports: Abdominal Pain, Diarrhea. Denies: Nausea, Vomiting Genitourinary: Reports: No Symptoms Musculoskeletal: Reports: No Symptoms Skin: Reports: No Symptoms Neurological: Reports: No Symptoms Psychiatric: Reports: No Symptoms - Patient Data Vitals - Most Recent: Last Vital Signs Temp 98.8 F 07/30/19 07:10 Pulse 82 07/30/19 07:10 Resp 18 07/30/19 07:10 BP 117/67 07/30/19 07:10 Pulse Ox 98 07/30/19 07:10 Weight - Most Recent: 49.804 kg I&O - Last 24 Hours: Intake & Output 07/29/19 07/30/19 07/30/19 22:59 06:59 14:59 Intake Total 1055 2666 Output Total 1800 2000 Balance -745 666 Lab Results Last 24 Hours: Laboratory Results - last 24 hr 07/30/19 07/30/19 Range/Units 05:55 05:55 WBC 18.43 H (4.0-11.0) K/uL RBC 3.77 L (4.30-5.90) M/uL Hgb 8.8 L (12.0-16.0) g/dL Hct 29.0 L (36.0-46.0) % MCV 76.9 L (80.0-98.0) fL MCH 23.3 L (27.0-32.0) pg MCHC 30.3 L (31.0-37.0) g/dL RDW Std Deviation 57.1 (28.0-62.0) fl RDW Coeff of Buck 20 H (11.0-15.0) % Plt Count 578 H (150-400) K/uL MPV 9.40 (7.40-12.00) fL Neut % (Auto) 78.0 (48.0-80.0) % Lymph % (Auto) 10.4 L (16.0-40.0) % [place] % (Auto) 11.4 (0.0-15.0) % Eos % (Auto) 0.1 (0.0-7.0) % Baso % (Auto) 0.1 (0.0-1.5) % Neut # (Auto) 14.4 H (1.4-5.7) K/uL Lymph # (Auto) 1.9 (0.6-2.4) K/uL [place] # (Auto) 2.1 H (0.0-0.8) K/uL Eos # (Auto) 0.0 (0.0-0.7) K/uL Baso # (Auto) 0.0 (0.0-0.1) K/uL Nucleated RBC % 0.0 /100WBC Nucleated RBCs # 0 K/uL Sodium 136 (136-145) mmol/L Potassium 4.0 (3.5-5.1) mmol/L Chloride 101 (98-107) mmol/L Carbon Dioxide 25.1 (21.0-32.0) mmol/L BUN 6 L (7.0-18.0) mg/dL Creatinine 0.8 (0.6-1.0) mg/dL Est Cr Clr Drug Dosing 87.46 mL/min Estimated GFR (MDRD) > 60.0 ml/min Glucose 88 (74-106) mg/dL Calcium 8.8 (8.5-10.1) mg/dL Phosphorus 4.2 (2.6-4.7) mg/dL Magnesium 1.7 L (1.8-2.4) mg/dL Total Bilirubin 0.2 (0.2-1.0) mg/dL AST 7 L (15-37) IU/L ALT 15 (14-63) IU/L Alkaline Phosphatase 63 (46-116) U/L Total Protein 6.7 (6.4-8.2) g/dL Albumin 2.9 L (3.4-5.0) g/dL Globulin 3.8 (2.6-4.0) g/dL Albumin/Globulin Ratio 0.8 L (0.9-1.6) Med Orders - Current: Current Medications Hydromorphone HCl (Dilaudid) 0.5 mg IVPUSH Q2H PRN PRN Reason: Pain (severe 7-10) Last Admin: 07/30/19 07:38 Dose: 0.5 mg Pantoprazole Sodium 40 mg/ (Sodium Chloride) 10 mls @ 300 mls/hr IV Q24H [facility] Last Admin: 07/29/19 10:18 Dose: 300 mls/hr Sodium Chloride (Normal Saline) 1,000 mls @ 100 mls/hr IV Q10H [facility] Last Admin: 07/30/19 06:25 Dose: 100 mls/hr Methylprednisolone Sodium Succinate (Solu-Medrol) 20 mg IV TID [facility] Last Admin: 07/30/19 06:26 Dose: 20 mg Ondansetron HCl (Zofran) 4 mg IVPUSH Q4H PRN PRN Reason: Nausea Last Admin: 07/29/19 13:26 Dose: 4 mg Sodium Chloride (Saline Flush) 10 ml FLUSH ASDIRECTED PRN PRN Reason: Keep Vein Open Sodium Chloride (Saline Flush) 2.5 ml FLUSH ASDIRECTED PRN PRN Reason: Keep Vein Open Discontinued Medications Sodium Chloride (Normal Saline) 1,000 mls @ 999 mls/hr IV BOLUS ONE Stop: 07/28/19 06:32 Last Admin: 07/28/19 05:45 Dose: 999 mls/hr Potassium Chloride 20 meq/ (Premix) 50 mls @ 25 mls/hr IV ONETIME ONE Stop: 07/28/19 10:14 Last Admin: 07/28/19 08:45 Dose: 25 mls/hr Multivitamins/Minerals 10 ml/Thiamine HCl 100 mg/ Folic Acid 1 mg/ Sodium Chloride 1,011.2 mls @ 120 mls/hr IV ONETIME ONE Stop: 07/28/19 16:40 Last Admin: 07/28/19 08:45 Dose: 120 mls/hr Sodium Chloride (Normal Saline) 1,000 mls @ 125 mls/hr IV Q8H [facility] Last Admin: 07/29/19 10:22 Dose: Not Given Magnesium Sulfate 2 gm/ Premix 50 mls @ 50 mls/hr IV ONETIME ONE Stop: 07/28/19 10:17 Last Admin: 07/28/19 10:58 Dose: 50 mls/hr Potassium Chloride/Sodium Chloride (Normal Saline With 40 Meq Kcl) 1,000 mls @ 125 mls/hr IV ONETIME ONE Stop: 07/28/19 22:43 Last Admin: 07/28/19 16:13 Dose: Not Given Potassium Chloride/Sodium Chloride (Normal Saline With 40 Meq Kcl) 1,000 mls @ 125 mls/hr IV ONETIME ONE Stop: 07/29/19 00:39 Last Admin: 07/28/19 17:26 Dose: 125 mls/hr Magnesium Sulfate 2 gm/ Premix 50 mls @ 50 mls/hr IV ONETIME ONE Stop: 07/29/19 08:53 Last Admin: 07/29/19 08:12 Dose: 50 mls/hr Magnesium Sulfate 2 gm/ Premix 50 mls @ 50 mls/hr IV ONETIME ONE Stop: 07/30/19 08:57 Last Admin: 07/30/19 08:21 Dose: 50 mls/hr Iopamidol (Isovue-370 (76%)) 75 ml IVPUSH ONETIME STA Stop: 07/28/19 07:07 Last Admin: 07/28/19 07:07 Dose: 75 ml Methylprednisolone Sodium Succinate (Solu-Medrol) 80 mg IV ONETIME ONE Stop: 07/28/19 08:16 Last Admin: 07/28/19 08:43 Dose: 80 mg Morphine Sulfate (Morphine) 4 mg IVPUSH ONETIME ONE Stop: 07/28/19 05:33 Last Admin: 07/28/19 05:47 Dose: 4 mg Morphine Sulfate (Morphine) 4 mg IVPUSH ONETIME ONE Stop: 07/28/19 06:34 Last Admin: 07/28/19 07:10 Dose: 4 mg Morphine Sulfate (Morphine) 6 mg IVPUSH ONETIME ONE Stop: 07/28/19 08:14 Last Admin: 07/28/19 08:43 Dose: 6 mg Ondansetron HCl (Zofran) 4 mg IVPUSH ONETIME ONE Stop: 07/28/19 05:33 Last Admin: 07/28/19 05:45 Dose: 4 mg Ondansetron HCl (Zofran) 4 mg IVPUSH ONETIME ONE Stop: 07/28/19 08:15 Last Admin: 07/28/19 08:43 Dose: 4 mg Sodium Chloride (Normal Saline) 1,000 ml IV ONETIME ONE Stop: 07/28/19 05:40 Last Admin: 07/28/19 06:40 Dose: Not Given - Exam General: Alert, Oriented, Cooperative, No Acute Distress Lungs: Clear to Auscultation, Normal Respiratory Effort Cardiovascular: Regular Rate, Regular Rhythm GI/Abdominal Exam: Normal Bowel Sounds, Soft, Tender Extremities: Normal Inspection, Normal Range of Motion, Non-Tender, No Pedal Edema Neurological: No New Focal Deficit Psy/Mental Status: Alert, Normal Affect, Normal Mood Sepsis Event Note - Evaluation Sepsis Screening Result: No Definite Risk - Focused Exam Vital Signs: Vital Signs Temp Pulse Resp BP Pulse Ox 07/30/19 07:10 98.8 F 82 18 117/67 98 07/30/19 03:49 98.0 F 82 18 120/57 L 97 07/29/19 23:56 97.8 F 72 18 103/42 L 97 Date Exam was Performed: 07/30/19 Time Exam was Performed: 09:49 - Problem List & Annotations (1) Ulcerative colitis SNOMED Code(s): 38035503 Code(s): K51.90 - ULCERATIVE COLITIS, UNSPECIFIED, WITHOUT COMPLICATIONS Status: Acute Current Visit: Yes (2) Hypokalemia SNOMED Code(s): 40375912 Code(s): E87.6 - HYPOKALEMIA Status: Acute Current Visit: Yes (3) Abdominal pain SNOMED Code(s): 13521796 Code(s): R10.9 - UNSPECIFIED ABDOMINAL PAIN Status: Acute Current Visit: No (4) Hx of Clostridium difficile infection SNOMED Code(s): 643597909, 209599149 Code(s): Z86.19 - PERSONAL HISTORY OF OTHER INFECTIOUS AND PARASITIC DISEASES Status: Chronic Current Visit: Yes (5) Anemia SNOMED Code(s): 276907527 Code(s): D64.9 - ANEMIA, UNSPECIFIED Status: Acute Current Visit: No - Problem List Review Problem List Initiated/Reviewed/Updated: Yes - My Orders Last 24 Hours: My Active Orders 07/29/19 09:45 Sodium Chloride 0.9% [Normal Saline] 1,000 ml IV Q10H 07/29/19 10:06 [employer] Discontinue [Cardiac Monitoring Discontinue] [RC] Click to Edit 07/30/19 Breakfast Soft Diet [DIET] 07/31/19 05:11 CBC WITH AUTO DIFF [HEME] AM COMPREHENSIVE METABOLIC PN,CMP [CHEM] AM MAGNESIUM [CHEM] AM PHOSPHORUS [CHEM] AM - Plan Plan:: This 19 year old female admitted with UC flare 1. Ulcerative colitis flare: - No current infectious source, no need for antibiotics currently - Diarrhea secondary to UC flare, 3 BMs overnight. - Continue Solumedrol 20 mg IV TID - Dilaudid PRN for pain - Zofran 4 mg IV PRN nausea - NS 100 mls/hr today - Anemia stable. - Soft diet - Dr Seymour wants Humira to be given if possible. Wants loading dose of 160 mg given. Keysha's boyfriend is able to berry picker medication at pharmacy today. VTE prophylaxis: SCDs Dispo: Possible DC later today if tolerates soft diet
[2019-07-30] MEDS: Pantoprazole 40 MG in Sodium Chloride 0.9% 10 ML IV SCH (09:55)
[2019-07-30] MEDS ORDERED: ADALIMUMAB SUBCUT ONE (16:30)
[2019-07-30] MEDS: Ondansetron 4 MG/2 ML SDV IVPUSH PRN (21:09)
[2019-07-31] MEDS: HYDROmorphone 1 MG/ML Syringe IVPUSH PRN ×4 (00:33→09:58)
[2019-07-31] MEDS: Sodium Chloride 0.9% 1,000 ML IV SCH (02:22)
[2019-07-31] MEDS: methylPREDNISolone Sodium Succinate 40 MG/1 ML SDV IV SCH (05:29)
[2019-07-31 06:31] LABS: BLOOD UREA NITROGEN,BUN 9 mg/dL (7.0-18.0); CARBON DIOXIDE,CO2 27.6 mmol/L (21.0-32.0); CHLORIDE,CL 100 mmol/L (98-107); GLUCOSE RANDOM 95 mg/dL (74-106); POTASSIUM,K 4.3 mmol/L (3.5-5.1); SODIUM,NA 134 mmol/L (136-145)
[2019-07-31] MEDS ORDERED: Magnesium Sulfate/Water 2 GM in Premix Bag 1 BAG IV ONE (07:52)
--- NOTE | 2019-07-31 10:00 | PCM.DCSUM1 ---
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 She reports she had recent colonscopy with Dr Seymour, July 20. Upon review of records, this showed active ulcerative colitis disease in distal ascending, transverse, descending and rectosigmoid colon. Dr Seymour is currently arranging biologic therapy. She denies fevers or chills, no chest pain or shortness of breathing. Reports all over abdominal pain, gets chills with the diarrhea which is common for her. She reports she has some lightheadedness with ambulation and moving too fast. She started to decrease steroid taper, which started July 02 from discharge out of [facility]. She is supposed to be taking 20 mg now, from 30 mg x 20 days. In the ED leukocytosis noted at 18,230, hgb 9.3 and hct 30.6, Na 137, K+ 3.1, Mag 1.7, UA negative HCG negative. Abd/pelvis CT obtained which revealed mild but diffuse wall thickening throughout the colon, compatible with ulcerative colitis, no significant changes from previous exam. The ED MD contacted Dr Seymour, he recommended no transfer at this time, did recommend bolus Solumedrol 80 mg followed by 20 mg TID IV Solumedrol. She was given IV bolus in the ED along with MVI. PCP, Dr Seymour, GI specialist Diagnosis: Stroke: No - Discharge Data Discharge Date: 07/31/19 Discharge Disposition: Home, Self-Care 01 Condition: Stable - Referral to Home Health Primary Care Physician: Janelle Dela Cruz NP - Discharge Diagnosis/Problem(s) (1) Ulcerative colitis SNOMED Code(s): 59138345 ICD Code: K51.90 - ULCERATIVE COLITIS, UNSPECIFIED, WITHOUT COMPLICATIONS Status: Acute Current Visit: Yes (2) Hypokalemia SNOMED Code(s): 52918764 ICD Code: E87.6 - HYPOKALEMIA Status: Acute Current Visit: Yes (3) Abdominal pain SNOMED Code(s): 42140922 ICD Code: R10.9 - UNSPECIFIED ABDOMINAL PAIN Status: Acute Current Visit : No (4) Hx of Clostridium difficile infection SNOMED Code(s): 278615978, 999848233 ICD Code: Z86.19 - PERSONAL HISTORY OF OTHER INFECTIOUS AND PARASITIC DISEASES Status: Chronic Current Visit: Yes (5) Anemia SNOMED Code(s): 402975659 ICD Code: D64.9 - ANEMIA, UNSPECIFIED Status: Acute Current Visit: No - Patient Summary/Data Hospital Course: Admitting Diagnoses: UC flare N/V abdominal pain Discharge Diagnoses: UC flare, improving Keysha was admitted and treated with IV solumedrol, IVFs and pain medications for UC flare. I was in contact with Dr Seymour, GI specialist during her stay. Her Humira was approved and she was able to administer this per direction of Dr Seymour. She received 160 mg for loading dose and will continue this as prescribed by GI speciality. She is feeling much improved today, Dr Seymour recommends continuing Prednisone taper starting with 40 mg x 10 days then slowly taper down. Hgb is stable 8.6. Tolerating diet well and eager to go home. She is to return to ED or clinic if concerns should arise. She feeling much improved, pain only with BMs, which is her normal. She is to follow up with PCP in 1 week. And Follow up with Dr Seymour as needed, as they will be in contact with her regarding further Humira dosing. - Patient Instructions Diet: GI Soft/Low Residue/Low Fiber Activity: As Tolerated Showering/Bathing: May Shower Notify Provider of: Fever, Increased Pain, Swelling and Redness, Drainage, Nausea and/or Vomiting - Discharge Plan *PRESCRIPTION DRUG MONITORING PROGRAM REVIEWED*: Not Applicable *COPY OF PRESCRIPTION DRUG MONITORING REPORT IN PATIENT MEJIA: Not Applicable Prescriptions/Med Rec: predniSONE [Prednisone] 10 - 40 mg PO DAILY #82 tablet Home Medications: Home Meds Famotidine 20 mg PO DAILY 07/28/19 [History] predniSONE [Prednisone] 10 - 40 mg PO DAILY #82 tablet 07/31/19 [Rx] Oxygen Therapy Mode: Room Air Patient Handouts: Ulcerative Colitis, Adult, Prednisone tablets Referrals: [facility] [Outside] Red Seymour MD [Ordering Only Provider] - Roddy Allen MD [Ordering Only Provider] - 08/08/19 9:30 am (Arrive 15 minutes early with a photo ID and insurance card. If you are not early, they will not see you. ) - Discharge Summary/Plan Comment DC Time >30 min.: No - Patient Data Vitals - Most Recent: Last Vital Signs Temp 97.5 F 07/31/19 03:49 Pulse 62 07/31/19 03:49 Resp 16 07/31/19 03:49 BP 115/64 07/31/19 03:49 Pulse Ox 98 07/31/19 03:49 Weight - Most Recent: 49.804 kg I&O - Last 24 hours: Intake & Output 07/30/19 07/31/19 07/31/19 22:59 06:59 14:59 Intake Total 880 3248 Output Total 1700 1500 Balance -820 1748 Lab Results - Last 24 hrs: Laboratory Results - last 24 hr 07/31/19 07/31/19 Range/Units 05:46 05:46 WBC 16.37 H (4.0-11.0) K/uL RBC 3.76 L (4.30-5.90) M/uL Hgb 8.7 L (12.0-16.0) g/dL Hct 28.9 L (36.0-46.0) % MCV 76.9 L (80.0-98.0) fL MCH 23.1 L (27.0-32.0) pg MCHC 30.1 L (31.0-37.0) g/dL RDW Std Deviation 57.6 (28.0-62.0) fl RDW Coeff of Buck 20 H (11.0-15.0) % Plt Count 600 H (150-400) K/uL MPV 9.10 (7.40-12.00) fL Neut % (Auto) 71.3 (48.0-80.0) % Lymph % (Auto) 17.2 (16.0-40.0) % [place] % (Auto) 11.4 (0.0-15.0) % Eos % (Auto) 0.0 (0.0-7.0) % Baso % (Auto) 0.1 (0.0-1.5) % Neut # (Auto) 11.7 H (1.4-5.7) K/uL Lymph # (Auto) 2.8 H (0.6-2.4) K/uL [place] # (Auto) 1.9 H (0.0-0.8) K/uL Eos # (Auto) 0.0 (0.0-0.7) K/uL Baso # (Auto) 0.0 (0.0-0.1) K/uL Nucleated RBC % 0.0 /100WBC Nucleated RBCs # 0 K/uL Sodium 134 L (136-145) mmol/L Potassium 4.3 (3.5-5.1) mmol/L Chloride 100 (98-107) mmol/L Carbon Dioxide 27.6 (21.0-32.0) mmol/L BUN 9 (7.0-18.0) mg/dL Creatinine 0.8 (0.6-1.0) mg/dL Est Cr Clr Drug Dosing 87.46 mL/min Estimated GFR (MDRD) > 60.0 ml/min Glucose 95 (74-106) mg/dL Calcium 8.6 (8.5-10.1) mg/dL Phosphorus 4.3 (2.6-4.7) mg/dL Magnesium 1.7 L (1.8-2.4) mg/dL Total Bilirubin 0.2 (0.2-1.0) mg/dL AST 8 L (15-37) IU/L ALT 15 (14-63) IU/L Alkaline Phosphatase 60 (46-116) U/L Total Protein 6.8 (6.4-8.2) g/dL Albumin 2.8 L (3.4-5.0) g/dL Globulin 4.0 (2.6-4.0) g/dL Albumin/Globulin Ratio 0.7 L (0.9-1.6) Med Orders - Current: Current Medications Hydromorphone HCl (Dilaudid) 0.5 mg IVPUSH Q2H PRN PRN Reason: Pain (severe 7-10) Last Admin: 07/31/19 09:58 Dose: 0.5 mg Pantoprazole Sodium 40 mg/ (Sodium Chloride) 10 mls @ 300 mls/hr IV Q24H [facility] Last Admin: 07/30/19 09:55 Dose: 300 mls/hr Sodium Chloride (Normal Saline) 1,000 mls @ 100 mls/hr IV Q10H [facility] Last Admin: 07/31/19 02:22 Dose: 100 mls/hr Methylprednisolone Sodium Succinate (Solu-Medrol) 20 mg IV TID [facility] Last Admin: 07/31/19 05:29 Dose: 20 mg Ondansetron HCl (Zofran) 4 mg IVPUSH Q4H PRN PRN Reason: Nausea Last Admin: 07/30/19 21:09 Dose: 4 mg Sodium Chloride (Saline Flush) 10 ml FLUSH ASDIRECTED PRN PRN Reason: Keep Vein Open Sodium Chloride (Saline Flush) 2.5 ml FLUSH ASDIRECTED PRN PRN Reason: Keep Vein Open Discontinued Medications Sodium Chloride (Normal Saline) 1,000 mls @ 999 mls/hr IV BOLUS ONE Stop: 07/28/19 06:32 Last Admin: 07/28/19 05:45 Dose: 999 mls/hr Potassium Chloride 20 meq/ (Premix) 50 mls @ 25 mls/hr IV ONETIME ONE Stop: 07/28/19 10:14 Last Admin: 07/28/19 08:45 Dose: 25 mls/hr Multivitamins/Minerals 10 ml/Thiamine HCl 100 mg/ Folic Acid 1 mg/ Sodium Chloride 1,011.2 mls @ 120 mls/hr IV ONETIME ONE Stop: 07/28/19 16:40 Last Admin: 07/28/19 08:45 Dose: 120 mls/hr Sodium Chloride (Normal Saline) 1,000 mls @ 125 mls/hr IV Q8H [facility] Last Admin: 07/29/19 10:22 Dose: Not Given Magnesium Sulfate 2 gm/ Premix 50 mls @ 50 mls/hr IV ONETIME ONE Stop: 07/28/19 10:17 Last Admin: 07/28/19 10:58 Dose: 50 mls/hr Potassium Chloride/Sodium Chloride (Normal Saline With 40 Meq Kcl) 1,000 mls @ 125 mls/hr IV ONETIME ONE Stop: 07/28/19 22:43 Last Admin: 07/28/19 16:13 Dose: Not Given Potassium Chloride/Sodium Chloride (Normal Saline With 40 Meq Kcl) 1,000 mls @ 125 mls/hr IV ONETIME ONE Stop: 07/29/19 00:39 Last Admin: 07/28/19 17:26 Dose: 125 mls/hr Magnesium Sulfate 2 gm/ Premix 50 mls @ 50 mls/hr IV ONETIME ONE Stop: 07/29/19 08:53 Last Admin: 07/29/19 08:12 Dose: 50 mls/hr Magnesium Sulfate 2 gm/ Premix 50 mls @ 50 mls/hr IV ONETIME ONE Stop: 07/30/19 08:57 Last Admin: 07/30/19 08:21 Dose: 50 mls/hr Magnesium Sulfate 2 gm/ Premix 50 mls @ 50 mls/hr IV ONETIME ONE Stop: 07/31/19 08:51 Last Admin: 07/31/19 08:48 Dose: 50 mls/hr Iopamidol (Isovue-370 (76%)) 75 ml IVPUSH ONETIME STA Stop: 07/28/19 07:07 Last Admin: 07/28/19 07:07 Dose: 75 ml Methylprednisolone Sodium Succinate (Solu-Medrol) 80 mg IV ONETIME ONE Stop: 07/28/19 08:16 Last Admin: 07/28/19 08:43 Dose: 80 mg Morphine Sulfate (Morphine) 4 mg IVPUSH ONETIME ONE Stop: 07/28/19 05:33 Last Admin: 07/28/19 05:47 Dose: 4 mg Morphine Sulfate (Morphine) 4 mg IVPUSH ONETIME ONE Stop: 07/28/19 06:34 Last Admin: 07/28/19 07:10 Dose: 4 mg Morphine Sulfate (Morphine) 6 mg IVPUSH ONETIME ONE Stop: 07/28/19 08:14 Last Admin: 07/28/19 08:43 Dose: 6 mg Ondansetron HCl (Zofran) 4 mg IVPUSH ONETIME ONE Stop: 07/28/19 05:33 Last Admin: 07/28/19 05:45 Dose: 4 mg Ondansetron HCl (Zofran) 4 mg IVPUSH ONETIME ONE Stop: 07/28/19 08:15 Last Admin: 07/28/19 08:43 Dose: 4 mg Adalimumab [Humira] (160 Mg) 1 each SUBCUT ONETIME ONE Stop: 07/30/19 16:31 Last Admin: 07/30/19 16:28 Dose: 1 each Sodium Chloride (Normal Saline) 1,000 ml IV ONETIME ONE Stop: 07/28/19 05:40 Last Admin: 07/28/19 06:40 Dose: Not Given - Exam General: Reports: Alert, Oriented Lungs: Reports: Clear to Auscultation, Normal Respiratory Effort Cardiovascular: Reports: Regular Rate, Regular Rhythm GI/Abdominal Exam: Normal Bowel Sounds, Soft, Tender (scant) Back Exam: Reports: Normal Inspection, Full Range of Motion Extremities: Normal Inspection, Normal Range of Motion, Non-Tender Neurological: Reports: No New Focal Deficit Psy/Mental Status: Reports: Alert, Normal Affect, Normal Mood
[2019-07-31] MEDS: Pantoprazole 40 MG in Sodium Chloride 0.9% 10 ML IV SCH (10:01)
== END 2019-07-31 12:10 | disposition home or self-care (01) | DRG 245 ==
LOC: MW.ED 05:21 → OBSVTOIN 08:29 → MW.MS 08:29
PROVIDERS: ADMIT Internal Medicine; ATTEND Internal Medicine
DX: K51.90 Ulcerative colitis, unspecified, without complications (principal); D64.9 Anemia, unspecified; E46 Unspecified protein-calorie malnutrition; E87.6 Hypokalemia; F90.9 Attention-deficit hyperactivity disorder, unspecified type; Z86.19 Personal history of other infectious and parasitic diseases; Z79.52 Long term (current) use of systemic steroids; Z79.899 Other long term (current) drug therapy; Z68.1 Body mass index [BMI] 19.9 or less, adult
CPT/HCPCS: 36415; 74177; 74177-26; 80053; 81001; 81025; 83605; 83690; 83735; 84100; 85025; 96361; 96374; 96375; 96376; 99283; 99285-25; C9113; J1170; J2270; J2405; J2920; J2930; J3411; J3475; J3480; J7030; J7050; Q9967

== ENCOUNTER 2019-08-01 10:51 | Inpatient (IN) | payer BC ==
[2019-08-01] MEDS ORDERED: Sodium Chloride 0.9% 1,000 ML IV ONE ×2 (11:08→14:55)
[2019-08-01] MEDS ORDERED: Ondansetron 4 MG/2 ML SDV IVPUSH ONE (11:08)
[2019-08-01] MEDS ORDERED: Morphine 2 MG/ML Syringe IVPUSH ONE (11:09)
--- NOTE | 2019-08-01 11:17 | EDM.PDOC ---
ED HPI GENERAL MEDICAL PROBLEM - General Chief Complaint: Abdominal Pain Stated Complaint: ABDOMINAL PAIN/VOMITING Time Seen by Provider: 08/01/19 10:52 Source of Information: Reports: Patient History Limitations: Reports: No Limitations - History of Present Illness INITIAL COMMENTS - FREE TEXT/NARRATIVE: HISTORY AND PHYSICAL: History of present illness: Patient is a 19-year-old female who presents to the emergency room with complaints of abdominal pain, nausea, vomiting and bloody diarrhea. Patient has a past medical history of ulcerative colitis, recurrent C. difficile, and deficiency anemia nutrition. 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 Patient was recently admitted to our facility and just discharged yesterday. During that time she received IV Solu-Medrol, IV fluid, pain medications and started her Humira (newly approved). Dr Seymour, her GI specialist, was consulted and is aware of her admission. At that time he did not feel she needed to be transferred. She does have a follow-up appointment to see him on 08/08/2019 at 930. After discharge yesterday she states her low abdominal pain returned, she feels slightly lightheaded with position changes, nausea and vomiting have worsened and continues to have copious amounts of bloody diarrhea. She is concerned as she was not able to keep down her morning medications. Patient denies any fever, chills, headache, change in vision, syncope or near syncope. Denies any chest pain, back pain, shortness of breath or cough. Denies any chance of , constipation or dysuria. Review of systems: As per history of present illness and below otherwise all systems reviewed and negative. Past medical history: As per history of present illness and as reviewed below otherwise noncontributory. Surgical history: As per history of present illness and as reviewed below otherwise noncontributory. Social history: See social history for further information Family history: As per history of present illness and as reviewed below otherwise noncontributory. Physical exam: General: Well-developed and well-nourished 19-year-old female. Alert and oriented. Nontoxic-appearing and in no acute distress. HEENT: Atraumatic, normocephalic, pupils equal and reactive bilaterally, negative for conjunctival pallor or scleral icterus, mucous membranes moist, trachea midline. No drooling or trismus noted. No meningeal signs. No hot potato voice noted. Lungs: Clear to auscultation, breath sounds equal bilaterally. Heart: S1S2, regular rate and rhythm without overt murmur Abdomen: Soft, nondistended, generalized tenderness in all 4 quadrants. Negative for masses or hepatosplenomegaly. Negative for costovertebral tenderness. Skin: Intact, warm, dry. No lesions or rashes noted. Extremities: Atraumatic, moves all extremities per self without difficulty or deficits. Neurovascular unremarkable. Neuro: Awake, alert, oriented. Cranial nerves II through XII unremarkable. Cerebellum unremarkable. Motor and sensory unremarkable throughout. Exam nonfocal. Notes: Recent CT done on 07/28/19: Diffuse wall thickening throughout the colon. Findings are compatible with clinical history of ulcerative colitis. No acute inflammatory changes seen. Findings are fairly stable from previous exam. Today's labs show she has dropped her potassium from yesterday. I did contact Dr Seymour (@[id number]), [place] in [place], discussed the patient's lab results along with her physical exam. With the patient just starting her Humira he states this is a waiting game and we will have to see how her body responds to this medication. At this time he does not feel she needs to be transferred. He does request that the patient hold her oral prednisone and received Solu-Medrol IV while here in the hospital. States he is available for consult at any time if any further questions arise. Patient's vitals have improved. She continues to have pain; will give Dilaudid IV and Potassium IV replacement. All information was shared with the patient. She is agreeable with admission and further care in our facility. Dr. Cedeño was consulted and agreeable to keeping her for observation care. Diagnostics: CBC, CMP, Lactate Therapeutics: IV fluids, Zofran, Morphine, 40meQ K, Dilaudid Impression: Hypokalemia Ulcerative colitis Abdominal Pain Plan: Observation admission to med/surg Definitive disposition and diagnosis as appropriate pending reevaluation and review of above. Abdominal Pain Score (Numeric/FACES): 10 - Related Data Allergies Allergy/AdvReac Type Severity Reaction Status Date / Time No Known Allergies Allergy Verified 08/01/19 11:03 Home Meds: Home Meds Famotidine 20 mg PO DAILY 07/28/19 [History] predniSONE [Prednisone] 10 - 40 mg PO DAILY #82 tablet 07/31/19 [Rx] Past Medical History - Past Health History Medical/Surgical History: Denies Medical/Surgical History HEENT History: Reports: Other (See Below) Other HEENT History: tonsillitis Cardiovascular History: Reports: None Respiratory History: Reports: None Gastrointestinal History: Reports: Inflammatory Bowel Disease, Other (See Below) Other Gastrointestinal History: History of Ulcerative Colitis Genitourinary History: Reports: None SUPERVISOR WEBBING History: Reports: Other (See Below) Other SUPERVISOR WEBBING History: Bacterial vaginitis, yeast infection Musculoskeletal History: Reports: None Neurological History: Reports: None Psychiatric History: Reports: ADHD Endocrine/Metabolic History: Reports: None Insulin Pump Model and Hemodialysis Charge Nurse: N/A Hematologic History: Reports: Other (See Below) Other Hematologic History: Blood Transfussions 2018 Immunologic History: Reports: None Oncologic (Cancer) History: Reports: None Dermatologic History: Reports: None - Infectious Disease History Infectious Disease History: Reports: None - Past Surgical History Head Surgeries/Procedures: Reports: None GI Surgical History: Reports: None, Colonoscopy Female Surgical History: Reports: None Social & Family History - Family History Family Medical History: Noncontributory - Tobacco Use Smoking Status *Q: Never Smoker - Caffeine Use Caffeine Use: Reports: Tea Other Caffeine Use: seldom - Recreational Drug Use Recreational Drug Use: No ED ROS GENERAL - Review of Systems Review Of Systems: Comprehensive ROS is negative, except as noted in HPI. ED EXAM, GI/ABD - Physical Exam Exam: See Below (See dictation) Course - Vital Signs Last Recorded V/S: Last Vital Signs Temp 98.1 F 08/01/19 11:04 Pulse 121 H 08/01/19 11:39 Resp 18 08/01/19 11:39 BP 119/77 08/01/19 11:39 Pulse Ox 98 08/01/19 11:39 - Orders/Labs/Meds Orders: Active Orders 24 hr Category Date Time Status Admission Status [Patient Status] [ADT] Stat ADT 08/01/19 12:30 Ordered HYDROmorphone [Dilaudid] Med 08/01/19 12:37 Once 0.5 mg IVPUSH ONETIME ONE Potassium Chloride Riders [KCL 40 MEQ in Water 100 ML] Med 08/01/19 12:37 Ordered 40 meq Premix Bag 1 bag IV ONETIME Medication Orders Potassium Chloride 40 meq/ (Premix) 100 mls @ 25 mls/hr IV ONETIME ONE Stop: 08/01/19 16:36 Labs: Laboratory Tests 08/01/19 08/01/19 08/01/19 Range/Units 11:20 11:20 11:20 WBC 15.89 H (4.0-11.0) K/uL RBC 4.28 L (4.30-5.90) M/uL Hgb 9.9 L (12.0-16.0) g/dL Hct 32.5 L (36.0-46.0) % MCV 75.9 L (80.0-98.0) fL MCH 23.1 L (27.0-32.0) pg MCHC 30.5 L (31.0-37.0) g/dL RDW Std Deviation 56.1 (28.0-62.0) fl RDW Coeff of Buck 20 H (11.0-15.0) % Plt Count 695 H (150-400) K/uL MPV 8.80 (7.40-12.00) fL Add Manual Diff YES Neutrophils % (Manual) 47 L (48.0-80.0) % Band Neutrophils % 10 % Lymphocytes % (Manual) 37 (16.0-40.0) % Monocytes % (Manual) 5 (0.0-15.0) % Metamyelocytes % 1 % Nucleated RBC % 0.0 /100WBC Absolute Seg Neuts 7.5 H (1.4-5.7) Band Neutrophils # 1.6 Lymphocytes # (Manual) 5.9 H (0.6-2.4) Monocytes # (Manual) 0.8 (0.0-0.8) Absolute Metamyelocyte 0.2 Nucleated RBCs # 0 K/uL Poikilocytosis 1+ SLIGHT Lactate 0.8 (0.20-2.00) mmol/L Sodium 135 L (136-145) mmol/L Potassium 2.8 L (3.5-5.1) mmol/L Chloride 100 (98-107) mmol/L Carbon Dioxide 26.5 (21.0-32.0) mmol/L BUN 9 (7.0-18.0) mg/dL Creatinine 0.8 (0.6-1.0) mg/dL Est Cr Clr Drug Dosing 96.06 mL/min Estimated GFR (MDRD) > 60.0 ml/min Glucose 79 (74-106) mg/dL Calcium 8.5 (8.5-10.1) mg/dL Total Bilirubin 0.3 (0.2-1.0) mg/dL AST 14 L (15-37) IU/L ALT 16 (14-63) IU/L Alkaline Phosphatase 94 (46-116) U/L Total Protein 7.0 (6.4-8.2) g/dL Albumin 3.0 L (3.4-5.0) g/dL Globulin 4.0 (2.6-4.0) g/dL Albumin/Globulin Ratio 0.8 L (0.9-1.6) Meds: Medications Generic Name Dose Route Start Last Admin Trade Name Freq PRN Reason Stop Dose Admin Potassium Chloride 40 meq/ 100 mls @ 25 mls/hr 08/01/19 12:37 Premix IV 08/01/19 16:36 ONETIME ONE Discontinued Medications Generic Name Dose Route Start Last Admin Trade Name Freq PRN Reason Stop Dose Admin Sodium Chloride 1,000 mls @ 999 mls/hr 08/01/19 11:08 08/01/19 11:34 Normal Saline IV 08/01/19 12:08 999 mls/hr STAT ONE Administration Morphine Sulfate 2 mg 08/01/19 11:09 08/01/19 11:34 Morphine IVPUSH 08/01/19 11:10 2 mg ONETIME ONE Administration Ondansetron HCl 4 mg 08/01/19 11:08 08/01/19 11:34 Zofran IVPUSH 08/01/19 11:09 4 mg ONETIME ONE Administration Departure - Departure Time of Disposition: 12:36 Disposition: Refer to Observation Clinical Impression: Hypokalemia Ulcerative colitis Qualifiers: Ulcerative colitis location: unspecified ulcerative colitis location Digestive disease complication type: unspecified complication Qualified Code(s): K51.919 - Ulcerative colitis, unspecified with unspecified complications Abdominal pain Qualifiers: Abdominal location: generalized Qualified Code(s): R10.84 - Generalized abdominal pain - Discharge Information Referrals: PCP,None [Primary Care Provider] - Forms: ED Department Discharge Sepsis Event Note - Evaluation Sepsis Screening Result: No Definite Risk - Focused Exam Vital Signs: Vital Signs Temp Pulse Resp BP Pulse Ox 08/01/19 11:39 121 H 18 119/77 98 05/15/20 11:04 98.1 F 131 H 17 118/82 98 Date Exam was Performed: 08/01/19 Time Exam was Performed: 12:38 - My Orders Last 24 Hours: My Active Orders 08/01/19 12:30 Admission Status [Patient Status] [ADT] Stat 08/01/19 12:37 HYDROmorphone [Dilaudid] 0.5 mg IVPUSH ONETIME ONE Potassium Chloride Riders [KCL 40 MEQ in Water 100 ML] 40 meq Premix Bag 1 bag IV ONETIME - Assessment/Plan Last 24 Hours: My Active Orders 08/01/19 12:30 Admission Status [Patient Status] [ADT] Stat 08/01/19 12:37 HYDROmorphone [Dilaudid] 0.5 mg IVPUSH ONETIME ONE Potassium Chloride Riders [KCL 40 MEQ in Water 100 ML] 40 meq Premix Bag 1 bag IV ONETIME
[2019-08-01 12:19] LABS: BLOOD UREA NITROGEN,BUN 9 mg/dL (7.0-18.0); CARBON DIOXIDE,CO2 26.5 mmol/L (21.0-32.0); CHLORIDE,CL 100 mmol/L (98-107); GLUCOSE RANDOM 79 mg/dL (74-106); POTASSIUM,K 2.8 mmol/L (3.5-5.1); SODIUM,NA 135 mmol/L (136-145)
[2019-08-01] MEDS ORDERED: Potassium Chloride Riders 40 MEQ in Premix Bag 1 BAG IV ONE (12:37)
[2019-08-01] MEDS ORDERED: HYDROmorphone 2 MG/ML Syringe IVPUSH ONE (12:37)
--- NOTE | 2019-08-01 13:02 | PCM.HP.2 ---
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 She was just discharged home yesterday afternoon. She said the pain started later in the evening and continued through the night. This morning she vomited her medications up and feels no better. She came to the ED for evaluation. She reports she felt she had a temperature overnight and some chills with her stools. Stools remain bloody, no change in frequency or consistency since discharge. She reports myalgias and overall just not feeling well. She denies dysuria. In the ED leukocytosis 15,840, which is stable from discharge. Hgb 9.9, platelets 695, Na 135, K+ 2.8. Dr Seymour was contacted by [facility] WORD PROCESSOR OPERATOR in ED, supportive care recommended for now. She will be admitted for abdominal pain, hypokalemia, and nausea. Humira was started prior to discharge on 07/29. Abdominal Pain Score (Numeric/FACES): 10 - Related Data Allergies/Adverse Reactions: Allergies Allergy/AdvReac Type Severity Reaction Status Date / Time No Known Allergies Allergy Verified 08/01/19 11:03 Home Medications: Home Meds Famotidine 20 mg PO DAILY 07/28/19 [History] predniSONE [Prednisone] 10 - 40 mg PO DAILY #82 tablet 07/31/19 [Rx] Past Medical History - Past Health History Medical/Surgical History: Denies Medical/Surgical History HEENT History: Reports: Other (See Below) Other HEENT History: tonsillitis Cardiovascular History: Reports: None Respiratory History: Reports: None Gastrointestinal History: Reports: Inflammatory Bowel Disease, Other (See Below) Other Gastrointestinal History: History of Ulcerative Colitis Genitourinary History: Reports: None METAL GRINDER History: Reports: Other (See Below) Other OB/BYN History: Bacterial vaginitis, yeast infection Musculoskeletal History: Reports: None Neurological History: Reports: None Psychiatric History: Reports: ADHD Endocrine/Metabolic History: Reports: None Insulin Pump Model and Director Of Archives: N/A Hematologic History: Reports: Other (See Below) Other Hematologic History: Blood Transfussions 2018 Immunologic History: Reports: None Oncologic (Cancer) History: Reports: None Dermatologic History: Reports: None - Infectious Disease History Infectious Disease History: Reports: None - Past Surgical History Head Surgeries/Procedures: Reports: None GI Surgical History: Reports: None, Colonoscopy Female Surgical History: Reports: None Social & Family History - Family History Family Medical History: Noncontributory - Tobacco Use Smoking Status *Q: Never Smoker - Caffeine Use Caffeine Use: Reports: Tea Other Caffeine Use: seldom - Recreational Drug Use Recreational Drug Use: No H&P Review of Systems - Review of Systems: Review Of Systems: See Below General: Reports: Chills, Malaise, Weakness, Fatigue HEENT: Reports: No Symptoms. Denies: Headaches, Sinus Congestion Pulmonary: Denies: Shortness of Breath Cardiovascular: Denies: Chest Pain Gastrointestinal: Reports: Abdominal Pain, Bloody Stool, Decreased Appetite, Nausea, Vomiting. Denies: Black Stool Genitourinary: Reports: No Symptoms. Denies: Dysuria, Frequency, Burning Psychiatric: Reports: Suicidal Ideation Neurological: Reports: No Symptoms Hematologic/Lymphatic: Reports: No Symptoms Immunologic: Reports: No Symptoms Exam - Exam Exam: See Below - Vital Signs Vital Signs: Last Vital Signs Temp 98.1 F 08/01/19 11:04 Pulse 121 H 08/01/19 11:39 Resp 18 08/01/19 11:39 BP 119/77 08/01/19 11:39 Pulse Ox 98 08/01/19 11:39 Weight: 59.874 kg - Exam General: Alert, Oriented, Cooperative, Other (appears frail and cachetic, thinning hair ) HEENT: Conjunctiva Clear, Mucosa Moist & [place], Posterior Pharynx Clear Lungs: Clear to Auscultation, Normal Respiratory Effort Cardiovascular: Regular Rate, Regular Rhythm GI/Abdominal Exam: Normal Bowel Sounds, Soft, Tender (throughout) Extremities: Normal Inspection, Normal Range of Motion, Non-Tender, No Pedal Edema Neuro Extensive - Mental Status: Alert, Oriented x3 Neuro Extensive - Motor, Sensory, Reflexes: CN II-XII Intact, Normal Gait Psychiatric: Alert, Normal Affect, Normal Mood - Patient Data Lab Results Last 24 hrs: Laboratory Results - last 24 hr 08/01/19 08/01/19 08/01/19 Range/Units 11:20 11:20 11:20 WBC 15.89 H (4.0-11.0) K/uL RBC 4.28 L (4.30-5.90) M/uL Hgb 9.9 L (12.0-16.0) g/dL Hct 32.5 L (36.0-46.0) % MCV 75.9 L (80.0-98.0) fL MCH 23.1 L (27.0-32.0) pg MCHC 30.5 L (31.0-37.0) g/dL RDW Std Deviation 56.1 (28.0-62.0) fl RDW Coeff of Buck 20 H (11.0-15.0) % Plt Count 695 H (150-400) K/uL MPV 8.80 (7.40-12.00) fL Add Manual Diff YES Neutrophils % (Manual) 47 L (48.0-80.0) % Band Neutrophils % 10 % Lymphocytes % (Manual) 37 (16.0-40.0) % Monocytes % (Manual) 5 (0.0-15.0) % Metamyelocytes % 1 % Nucleated RBC % 0.0 /100WBC Absolute Seg Neuts 7.5 H (1.4-5.7) Band Neutrophils # 1.6 Lymphocytes # (Manual) 5.9 H (0.6-2.4) Monocytes # (Manual) 0.8 (0.0-0.8) Absolute Metamyelocyte 0.2 Nucleated RBCs # 0 K/uL Poikilocytosis 1+ SLIGHT Lactate 0.8 (0.20-2.00) mmol/L Sodium 135 L (136-145) mmol/L Potassium 2.8 L (3.5-5.1) mmol/L Chloride 100 (98-107) mmol/L Carbon Dioxide 26.5 (21.0-32.0) mmol/L BUN 9 (7.0-18.0) mg/dL Creatinine 0.8 (0.6-1.0) mg/dL Est Cr Clr Drug Dosing 96.06 mL/min Estimated GFR (MDRD) > 60.0 ml/min Glucose 79 (74-106) mg/dL Calcium 8.5 (8.5-10.1) mg/dL Total Bilirubin 0.3 (0.2-1.0) mg/dL AST 14 L (15-37) IU/L ALT 16 (14-63) IU/L Alkaline Phosphatase 94 (46-116) U/L Total Protein 7.0 (6.4-8.2) g/dL Albumin 3.0 L (3.4-5.0) g/dL Globulin 4.0 (2.6-4.0) g/dL Albumin/Globulin Ratio 0.8 L (0.9-1.6) Result Diagrams: 08/01/19 11:20 08/01/19 11:20 Sepsis Event Note - Evaluation Sepsis Screening Result: No Definite Risk - Focused Exam Vital Signs: Vital Signs Temp Pulse Resp BP Pulse Ox 08/01/19 11:39 121 H 18 119/77 98 08/01/19 11:04 98.1 F 131 H 17 118/82 98 Date Exam was Performed: 08/01/19 Time Exam was Performed: 14:54 - Problem List (1) Abdominal pain SNOMED Code(s): 97801753 ICD Code: R10.9 - UNSPECIFIED ABDOMINAL PAIN Status: Acute Current Visit : Yes Qualifiers: Abdominal location: generalized Qualified Code(s): R10.84 - Generalized abdominal pain (2) Hypokalemia SNOMED Code(s): 77815604 ICD Code: E87.6 - HYPOKALEMIA Status: Acute Current Visit: Yes (3) Ulcerative colitis SNOMED Code(s): 30501563 ICD Code: K51.90 - ULCERATIVE COLITIS, UNSPECIFIED, WITHOUT COMPLICATIONS Status: Chronic Current Visit: Yes Qualifiers: Ulcerative colitis location: ulcerative pancolitis Digestive disease complication type: with rectal bleeding Qualified Code(s): K51.011 - Ulcerative (chronic) pancolitis with rectal bleeding (4) Dehydration SNOMED Code(s): 36451280 ICD Code: E86.0 - DEHYDRATION Status: Acute Current Visit: No (5) Hx of Clostridium difficile infection SNOMED Code(s): 609166737, 532058346 ICD Code: Z86.19 - PERSONAL HISTORY OF OTHER INFECTIOUS AND PARASITIC DISEASES Status: Chronic Current Visit: No Problem List Initiated/Reviewed/Updated: Yes Orders Last 24hrs: Active Orders 24 hr Category Date Time Status Admission Status [Patient Status] [ADT] Stat ADT 08/01/19 12:30 Active MAGNESIUM [CHEM] Routine Lab 08/01/19 12:57 Ordered HYDROmorphone [Dilaudid] Med 08/01/19 12:57 Active 0.5 mg IVPUSH Q4H PRN Potassium Chloride Riders [KCL 40 MEQ in Water 100 ML] Med 08/01/19 12:37 Active 40 meq Premix Bag 1 bag IV ONETIME Sodium Chloride 0.9% [Normal Saline] 1,000 ml Med 08/01/19 13:00 Active IV ASDIRECTED Medication Orders Hydromorphone HCl (Dilaudid) 0.5 mg IVPUSH Q4H PRN PRN Reason: Pain Potassium Chloride 40 meq/ (Premix) 100 mls @ 25 mls/hr IV ONETIME ONE Stop: 08/01/19 16:36 Sodium Chloride (Normal Saline) 1,000 mls @ 125 mls/hr IV ASDIRECTED DONNIE Assessment/Plan Comment:: This 19 year old female admitted with UC flare, with abdominal pain, N/V, hypokalemia and dehydration 1. Ulcerative colitis flare - NPO, ice chips ok for now - Dilaudid 0.5 mg PRN pain - Zofran and phernergan PRN nausea - Solumedrol 20 mg IV TID per Dr Seymour recommendations - Protonix 40 mg IV BID - If fever or pain worsens consider re-imaging 2. Hypokalemia - Replace IV today - Check Magnesium, replace as needed - Recheck electrolytes in am 3. Anemia - Chronic blood loss and ADRYAN - Monitor, hgb stable VTE prophylaxis: SCDs only due to bleeding Dispo: 2 days - Mortality Measure Prognosis:: Good
[2019-08-01] MEDS ORDERED: Promethazine 25 MG/ML SDV IM PRN (13:05)
[2019-08-01] MEDS ORDERED: Ondansetron 4 MG/2 ML SDV IVPUSH PRN (13:05)
[2019-08-01] MEDS ORDERED: Magnesium Sulfate/Water 2 GM in Premix Bag 1 BAG IV ONE ×2 (13:15→18:00)
[2019-08-01] MEDS: Sodium Chloride 0.9% 1,000 ML IV SCH (13:16)
[2019-08-01] MEDS: Pantoprazole 40 MG Vial IV SCH ×2 (14:10→22:00)
[2019-08-01] MEDS: methylPREDNISolone Sodium Succinate 40 MG/1 ML SDV IV SCH ×2 (14:12→21:55)
[2019-08-01] MEDS: HYDROmorphone 2 MG/ML Syringe IVPUSH PRN ×2 (17:04→21:54)
[2019-08-02] MEDS: HYDROmorphone 2 MG/ML Syringe IVPUSH PRN ×5 (01:57→20:35)
[2019-08-02] MEDS: Sodium Chloride 0.9% 1,000 ML IV SCH ×3 (04:42→20:37)
[2019-08-02] MEDS: methylPREDNISolone Sodium Succinate 40 MG/1 ML SDV IV SCH ×3 (04:45→20:19)
[2019-08-02 07:30] LABS: BLOOD UREA NITROGEN,BUN 9 mg/dL (7.0-18.0); CARBON DIOXIDE,CO2 24.1 mmol/L (21.0-32.0); CHLORIDE,CL 100 mmol/L (98-107); GLUCOSE RANDOM 108 mg/dL (74-106); POTASSIUM,K 4.1 mmol/L (3.5-5.1); SODIUM,NA 134 mmol/L (136-145)
[2019-08-02] MEDS: Pantoprazole 40 MG Vial IV SCH ×2 (10:17→20:21)
--- NOTE | 2019-08-02 13:06 | PCM.PN ---
- General Info Date of Service: 08/02/19 - Review of Systems Systems Review Comment:: abdominal pain slightly improved - Patient Data Vitals - Most Recent: Last Vital Signs Temp 37.0 C 08/02/19 11:00 Pulse 74 08/02/19 11:00 Resp 14 08/02/19 11:00 BP 106/46 L 08/02/19 11:00 Pulse Ox 99 08/02/19 11:00 Weight - Most Recent: 59.874 kg I&O - Last 24 Hours: Intake & Output 08/01/19 08/02/19 08/02/19 22:59 06:59 14:59 Intake Total 3120 1010 Output Total 400 900 Balance 2720 110 Lab Results Last 24 Hours: Laboratory Results - last 24 hr 08/01/19 08/02/19 08/02/19 Range/Units 11:20 06:28 06:28 WBC 15.50 H (4.0-11.0) K/uL RBC 3.84 L (4.30-5.90) M/uL Hgb 8.8 L (12.0-16.0) g/dL Hct 29.2 L (36.0-46.0) % MCV 76.0 L (80.0-98.0) fL MCH 22.9 L (27.0-32.0) pg MCHC 30.1 L (31.0-37.0) g/dL RDW Std Deviation 55.7 (28.0-62.0) fl RDW Coeff of Buck 20 H (11.0-15.0) % Plt Count 662 H (150-400) K/uL MPV 8.60 (7.40-12.00) fL Neut % (Auto) 86.5 H (48.0-80.0) % Lymph % (Auto) 8.6 L (16.0-40.0) % [place] % (Auto) 4.8 (0.0-15.0) % Eos % (Auto) 0.0 (0.0-7.0) % Baso % (Auto) 0.1 (0.0-1.5) % Neut # (Auto) 13.4 H (1.4-5.7) K/uL Lymph # (Auto) 1.3 (0.6-2.4) K/uL [place] # (Auto) 0.7 (0.0-0.8) K/uL Eos # (Auto) 0.0 (0.0-0.7) K/uL Baso # (Auto) 0.0 (0.0-0.1) K/uL Nucleated RBC % 0.0 /100WBC Nucleated RBCs # 0 K/uL Sodium 134 L (136-145) mmol/L Potassium 4.1 (3.5-5.1) mmol/L Chloride 100 (98-107) mmol/L Carbon Dioxide 24.1 (21.0-32.0) mmol/L BUN 9 (7.0-18.0) mg/dL Creatinine 0.7 (0.6-1.0) mg/dL Est Cr Clr Drug Dosing 109.78 mL/min Estimated GFR (MDRD) > 60.0 ml/min Glucose 108 H (74-106) mg/dL Calcium 8.4 L (8.5-10.1) mg/dL Phosphorus 4.3 (2.6-4.7) mg/dL Magnesium 1.7 L 1.9 (1.8-2.4) mg/dL Med Orders - Current: Current Medications Hydromorphone HCl (Dilaudid) 0.5 mg IVPUSH Q4H PRN PRN Reason: Pain Last Admin: 08/02/19 10:24 Dose: 0.5 mg Sodium Chloride (Normal Saline) 1,000 mls @ 125 mls/hr IV ASDIRECTED [facility] Last Admin: 08/02/19 12:28 Dose: 125 mls/hr Methylprednisolone Sodium Succinate (Solu-Medrol) 20 mg IV Q8H [facility] Last Admin: 08/02/19 12:35 Dose: 20 mg Ondansetron HCl (Zofran) 4 mg IVPUSH Q4H PRN PRN Reason: Nausea Last Admin: 08/01/19 15:44 Dose: 4 mg Pantoprazole Sodium (Protonix Iv) 40 mg IV Q12HR [facility] Last Admin: 08/02/19 10:17 Dose: 40 mg Promethazine HCl (Phenergan) 12.5 mg IM Q6H PRN PRN Reason: Nausea Discontinued Medications Hydromorphone HCl (Dilaudid) 0.5 mg IVPUSH ONETIME ONE Stop: 08/01/19 12:38 Last Admin: 08/01/19 13:17 Dose: 0.5 mg Sodium Chloride (Normal Saline) 1,000 mls @ 999 mls/hr IV STAT ONE Stop: 08/01/19 12:08 Last Admin: 08/01/19 11:34 Dose: 999 mls/hr Potassium Chloride 40 meq/ (Premix) 100 mls @ 25 mls/hr IV ONETIME ONE Stop: 08/01/19 16:36 Last Admin: 08/01/19 13:30 Dose: 25 mls/hr Magnesium Sulfate 2 gm/ Premix 50 mls @ 50 mls/hr IV ONETIME ONE Stop: 08/01/19 18:59 Last Admin: 08/01/19 19:12 Dose: 50 mls/hr Sodium Chloride (Normal Saline) 1,000 mls @ 999 mls/hr IV ONETIME ONE Stop: 08/01/19 15:55 Last Admin: 08/01/19 15:38 Dose: 999 mls/hr Morphine Sulfate (Morphine) 2 mg IVPUSH ONETIME ONE Stop: 08/01/19 11:10 Last Admin: 08/01/19 11:34 Dose: 2 mg Ondansetron HCl (Zofran) 4 mg IVPUSH ONETIME ONE Stop: 08/01/19 11:09 Last Admin: 08/01/19 11:34 Dose: 4 mg - Exam General: Alert, Oriented Neck: Supple Lungs: Clear to Auscultation, Normal Respiratory Effort Cardiovascular: Regular Rate, Regular Rhythm GI/Abdominal Exam: Normal Bowel Sounds, Soft, Non-Tender, No Distention Extremities: Non-Tender, No Pedal Edema Skin: Warm, Dry, Intact Wound/Incisions: Healing Well Neurological: No New Focal Deficit Sepsis Event Note - Evaluation Sepsis Screening Result: No Definite Risk - Focused Exam Vital Signs: Vital Signs Temp Pulse Resp BP Pulse Ox 08/02/19 11:00 37.0 C 74 14 106/46 L 99 08/02/19 07:35 35.9 C L 79 14 109/50 L 98 08/02/19 04:01 36.3 C 60 16 100/60 97 Date Exam was Performed: 08/02/19 Time Exam was Performed: 13:04 - Problem List Review Problem List Initiated/Reviewed/Updated: Yes - My Orders Last 24 Hours: My Active Orders 08/02/19 Breakfast Advance Diet Instructions [DIET] 08/03/19 05:11 BASIC METABOLIC PANEL,BMP [CHEM] AM CBC WITH AUTO DIFF [HEME] AM MAGNESIUM [CHEM] AM PHOSPHORUS [CHEM] AM - Plan Plan:: 19 yo female admitted for ulcerative colitis flare. She is on Marie, We will continue solumedrol 20mg IV TID, Dilaudid prn. Will advance diet to clear liquid.
[2019-08-03] MEDS: HYDROmorphone 2 MG/ML Syringe IVPUSH PRN ×3 (00:35→09:01)
[2019-08-03] MEDS: Sodium Chloride 0.9% 1,000 ML IV SCH ×2 (04:43→17:37)
[2019-08-03] MEDS: methylPREDNISolone Sodium Succinate 40 MG/1 ML SDV IV SCH ×3 (04:50→20:15)
[2019-08-03 05:44] LABS: BLOOD UREA NITROGEN,BUN 10 mg/dL (7.0-18.0); CARBON DIOXIDE,CO2 26.1 mmol/L (21.0-32.0); CHLORIDE,CL 100 mmol/L (98-107); GLUCOSE RANDOM 99 mg/dL (74-106); POTASSIUM,K 4.2 mmol/L (3.5-5.1); SODIUM,NA 131 mmol/L (136-145)
[2019-08-03] MEDS ORDERED: Magnesium Sulfate/Water 4 GM in Premix Bag 1 BAG IV ONE (07:15)
[2019-08-03] MEDS: Pantoprazole 40 MG Vial IV SCH ×2 (08:21→20:10)
--- NOTE | 2019-08-03 08:39 | PCM.PN ---
<Vania Villasenor - Last Filed: 08/03/19 11:37> - General Info Date of Service: 08/03/19 Subjective Update: Patient admitted for UC flare. Reports that she still has abdominal pain and she is requiring IV Dilaudid regularly. Still having bloody bowel movement. Denies nausea/vomiting. Reports she is eating and drinking without issue. - Review of Systems General: Reports: No Symptoms HEENT: Reports: No Symptoms Pulmonary: Reports: No Symptoms Cardiovascular: Reports: No Symptoms Gastrointestinal: Reports: Abdominal Pain, Diarrhea. Denies: Nausea, Vomiting Genitourinary: Reports: No Symptoms Musculoskeletal: Reports: No Symptoms Skin: Reports: No Symptoms Neurological: Reports: No Symptoms Psychiatric: Reports: No Symptoms - Patient Data Vitals - Most Recent: Last Vital Signs Temp 97.7 F 08/03/19 04:07 Pulse 60 08/03/19 04:07 Resp 17 08/03/19 04:07 BP 115/59 L 08/03/19 04:07 Pulse Ox 99 08/03/19 04:07 Weight - Most Recent: 59.874 kg I&O - Last 24 Hours: Intake & Output 08/02/19 08/03/19 08/03/19 22:59 06:59 14:59 Intake Total 1780 1683 Output Total 1000 1300 Balance 780 383 Lab Results Last 24 Hours: Laboratory Results - last 24 hr 08/03/19 08/03/19 Range/Units 05:15 05:15 WBC 19.38 H (4.0-11.0) K/uL RBC 3.51 L (4.30-5.90) M/uL Hgb 8.0 L (12.0-16.0) g/dL Hct 26.3 L (36.0-46.0) % MCV 74.9 L (80.0-98.0) fL MCH 22.8 L (27.0-32.0) pg MCHC 30.4 L (31.0-37.0) g/dL RDW Std Deviation 54.4 (28.0-62.0) fl RDW Coeff of Buck 20 H (11.0-15.0) % Plt Count 592 H (150-400) K/uL MPV 8.60 (7.40-12.00) fL Add Manual Diff YES Neutrophils % (Manual) 73 (48.0-80.0) % Band Neutrophils % 3 % Lymphocytes % (Manual) 17 (16.0-40.0) % Monocytes % (Manual) 7 (0.0-15.0) % Nucleated RBC % 0.0 /100WBC Absolute Seg Neuts 14.1 H (1.4-5.7) Band Neutrophils # 0.6 Lymphocytes # (Manual) 3.3 H (0.6-2.4) Monocytes # (Manual) 1.4 H (0.0-0.8) Nucleated RBCs # 0 K/uL Poikilocytosis 1+ SLIGHT Sodium 131 L (136-145) mmol/L Potassium 4.2 (3.5-5.1) mmol/L Chloride 100 (98-107) mmol/L Carbon Dioxide 26.1 (21.0-32.0) mmol/L BUN 10 (7.0-18.0) mg/dL Creatinine 0.7 (0.6-1.0) mg/dL Est Cr Clr Drug Dosing 109.78 mL/min Estimated GFR (MDRD) > 60.0 ml/min Glucose 99 (74-106) mg/dL Calcium 8.2 L (8.5-10.1) mg/dL Phosphorus 4.3 (2.6-4.7) mg/dL Magnesium 1.5 L (1.8-2.4) mg/dL Med Orders - Current: Current Medications Hydromorphone HCl (Dilaudid) 0.5 mg IVPUSH Q4H PRN PRN Reason: Pain Last Admin: 08/03/19 04:44 Dose: 0.5 mg Sodium Chloride (Normal Saline) 1,000 mls @ 125 mls/hr IV ASDIRECTED [facility] Last Admin: 08/03/19 04:43 Dose: 125 mls/hr Magnesium Sulfate 4 gm/ Premix 100 mls @ 50 mls/hr IV ONETIME ONE Stop: 08/03/19 09:14 Last Admin: 08/03/19 07:49 Dose: 50 mls/hr Methylprednisolone Sodium Succinate (Solu-Medrol) 20 mg IV Q8H [facility] Last Admin: 08/03/19 04:50 Dose: 20 mg Ondansetron HCl (Zofran) 4 mg IVPUSH Q4H PRN PRN Reason: Nausea Last Admin: 08/01/19 15:44 Dose: 4 mg Pantoprazole Sodium (Protonix Iv) 40 mg IV Q12HR [facility] Last Admin: 08/03/19 08:21 Dose: 40 mg Promethazine HCl (Phenergan) 12.5 mg IM Q6H PRN PRN Reason: Nausea Discontinued Medications Hydromorphone HCl (Dilaudid) 0.5 mg IVPUSH ONETIME ONE Stop: 08/01/19 12:38 Last Admin: 08/01/19 13:17 Dose: 0.5 mg Sodium Chloride (Normal Saline) 1,000 mls @ 999 mls/hr IV STAT ONE Stop: 08/01/19 12:08 Last Admin: 08/01/19 11:34 Dose: 999 mls/hr Potassium Chloride 40 meq/ (Premix) 100 mls @ 25 mls/hr IV ONETIME ONE Stop: 08/01/19 16:36 Last Admin: 08/01/19 13:30 Dose: 25 mls/hr Magnesium Sulfate 2 gm/ Premix 50 mls @ 50 mls/hr IV ONETIME ONE Stop: 08/01/19 18:59 Last Admin: 08/01/19 19:12 Dose: 50 mls/hr Sodium Chloride (Normal Saline) 1,000 mls @ 999 mls/hr IV ONETIME ONE Stop: 08/01/19 15:55 Last Admin: 08/01/19 15:38 Dose: 999 mls/hr Morphine Sulfate (Morphine) 2 mg IVPUSH ONETIME ONE Stop: 08/01/19 11:10 Last Admin: 08/01/19 11:34 Dose: 2 mg Ondansetron HCl (Zofran) 4 mg IVPUSH ONETIME ONE Stop: 08/01/19 11:09 Last Admin: 08/01/19 11:34 Dose: 4 mg - Exam General: Alert, Oriented, Cooperative Lungs: Clear to Auscultation, Normal Respiratory Effort Cardiovascular: Regular Rate, Regular Rhythm GI/Abdominal Exam: Soft, Tender (throughout) Extremities: No Pedal Edema Skin: Warm, Dry Neurological: No New Focal Deficit Psy/Mental Status: Alert, Normal Affect, Normal Mood Sepsis Event Note - Evaluation Sepsis Screening Result: No Definite Risk - Focused Exam Vital Signs: Vital Signs Temp Pulse Resp BP Pulse Ox 05/17/20 04:07 97.7 F 60 17 115/59 L 99 08/03/19 00:00 97.9 F 62 17 119/65 97 Date Exam was Performed: 08/03/19 Time Exam was Performed: 11:37 - Problem List Review Problem List Initiated/Reviewed/Updated: Yes - My Orders Last 24 Hours: My Active Orders 08/03/19 07:15 Magnesium Sulfate/Water [Magnesium Sulfate in Water Premix] 4 gm Premix Bag 1 bag IV ONETIME - Plan Plan:: 1. Ulcerative colitis flare- Continue Solumedrol per Dr. Seymour recommendations. Continue Protonix BID. PRN Zofran and Phenergan. Still requiring regular Dilaudid. Diet advance to soft. 2. Chronic blood loss anemia- continues to have bloody bowel movement and hemoglobin dropped to 8. Will transfuse 2 units and recheck hemoglobin. 3. Hypomagnesemia- replaced and will recheck in AM. <Too Madrigal - Last Filed: 08/07/19 12:22> - General Info Subjective Update: I have seen and evaluated the patient and agree with the residents note unless specified in my note - Patient Data Vitals - Most Recent: Last Vital Signs Temp 36.6 C 08/05/19 07:51 Pulse 73 08/05/19 07:51 Resp 14 08/05/19 07:51 BP 132/82 08/05/19 07:51 Pulse Ox 98 08/05/19 07:51 Med Orders - Current: Current Medications Discontinued Medications Hydrocodone Bitart/Acetaminophen (Muir 325-5 Mg) 1 tab PO Q4H PRN PRN Reason: Pain Last Admin: 08/05/19 10:34 Dose: 1 tab Hydromorphone HCl (Dilaudid) 0.5 mg IVPUSH ONETIME ONE Stop: 08/01/19 12:38 Last Admin: 08/01/19 13:17 Dose: 0.5 mg Hydromorphone HCl (Dilaudid) 0.5 mg IVPUSH Q4H PRN PRN Reason: Pain Last Admin: 08/03/19 09:01 Dose: 0.5 mg Hydromorphone HCl (Dilaudid) 0.5 mg IVPUSH Q4H PRN PRN Reason: Pain Last Admin: 08/05/19 07:46 Dose: 0.5 mg Sodium Chloride (Normal Saline) 1,000 mls @ 999 mls/hr IV STAT ONE Stop: 08/01/19 12:08 Last Admin: 08/01/19 11:34 Dose: 999 mls/hr Potassium Chloride 40 meq/ (Premix) 100 mls @ 25 mls/hr IV ONETIME ONE Stop: 08/01/19 16:36 Last Admin: 08/01/19 13:30 Dose: 25 mls/hr Sodium Chloride (Normal Saline) 1,000 mls @ 125 mls/hr IV ASDIRECTED [facility] Last Admin: 08/05/19 05:29 Dose: 125 mls/hr Magnesium Sulfate 2 gm/ Premix 50 mls @ 50 mls/hr IV ONETIME ONE Stop: 08/01/19 18:59 Last Admin: 08/01/19 19:12 Dose: 50 mls/hr Sodium Chloride (Normal Saline) 1,000 mls @ 999 mls/hr IV ONETIME ONE Stop: 08/01/19 15:55 Last Admin: 08/01/19 15:38 Dose: 999 mls/hr Magnesium Sulfate 4 gm/ Premix 100 mls @ 50 mls/hr IV ONETIME ONE Stop: 08/03/19 09:14 Last Admin: 08/03/19 07:49 Dose: 50 mls/hr Magnesium Sulfate 2 gm/ Premix 50 mls @ 50 mls/hr IV ONETIME ONE Stop: 08/04/19 09:02 Last Admin: 08/04/19 08:29 Dose: 50 mls/hr Magnesium Sulfate 2 gm/ Premix 50 mls @ 50 mls/hr IV ONETIME ONE Stop: 08/05/19 10:12 Last Admin: 08/05/19 09:44 Dose: 50 mls/hr Methylprednisolone Sodium Succinate (Solu-Medrol) 20 mg IV Q8H [facility] Last Admin: 08/05/19 12:33 Dose: 20 mg Morphine Sulfate (Morphine) 2 mg IVPUSH ONETIME ONE Stop: 08/01/19 11:10 Last Admin: 08/01/19 11:34 Dose: 2 mg Ondansetron HCl (Zofran) 4 mg IVPUSH ONETIME ONE Stop: 08/01/19 11:09 Last Admin: 08/01/19 11:34 Dose: 4 mg Ondansetron HCl (Zofran) 4 mg IVPUSH Q4H PRN PRN Reason: Nausea Last Admin: 08/01/19 15:44 Dose: 4 mg Pantoprazole Sodium (Protonix Iv) 40 mg IV Q12HR [facility] Last Admin: 08/05/19 09:40 Dose: 40 mg Promethazine HCl (Phenergan) 12.5 mg IM Q6H PRN PRN Reason: Nausea
[2019-08-03] MEDS: HYDROmorphone 1 MG/ML Syringe IVPUSH PRN ×3 (13:10→21:10)
[2019-08-04] MEDS: HYDROmorphone 1 MG/ML Syringe IVPUSH PRN ×6 (01:23→22:14)
[2019-08-04] MEDS: Sodium Chloride 0.9% 1,000 ML IV SCH ×3 (03:46→22:13)
[2019-08-04] MEDS: methylPREDNISolone Sodium Succinate 40 MG/1 ML SDV IV SCH ×3 (05:26→20:17)
[2019-08-04 06:33] LABS: BLOOD UREA NITROGEN,BUN 10 mg/dL (7.0-18.0); CARBON DIOXIDE,CO2 24.7 mmol/L (21.0-32.0); CHLORIDE,CL 104 mmol/L (98-107); GLUCOSE RANDOM 102 mg/dL (74-106); POTASSIUM,K 3.5 mmol/L (3.5-5.1); SODIUM,NA 136 mmol/L (136-145)
[2019-08-04] MEDS ORDERED: Magnesium Sulfate/Water 2 GM in Premix Bag 1 BAG IV ONE (08:03)
[2019-08-04] MEDS: Pantoprazole 40 MG Vial IV SCH ×2 (08:32→20:06)
--- NOTE | 2019-08-04 12:23 | PCM.DCSUM1 ---
Addendum entered and electronically signed by Kala Martel NP 08/05/19 11:46 : Discharge Summary - Hospital Course HPI Initial Comments: Discharge home today, 08/04. No changes from previous Discharge. Discharge yesterday canceled due to pain. Today patient is feeling better, We will discharge her with Jasper 5/325 mg 1 tab by mouth every 6 hours PRN pain, #20 no refills. She is to follow up with PCP on 08/07 and previously scheduled appointment with Dr Seymour. She is to return to ED or clinic if concerns should arise. 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 She was just discharged home yesterday afternoon. She said the pain started later in the evening and continued through the night. This morning she vomited her medications up and feels no better. She came to the ED for evaluation. She reports she felt she had a temperature overnight and some chills with her stools. Stools remain bloody, no change in frequency or consistency since discharge. She reports myalgias and overall just not feeling well. She denies dysuria. In the ED leukocytosis 15,840, which is stable from discharge. Hgb 9.9, platelets 695, Na 135, K+ 2.8. Dr Seymour was contacted by [facility] CERTIFIED NURSE AIDE in ED, supportive care recommended for now. She will be admitted for abdominal pain, hypokalemia, and nausea. Humira was started prior to discharge on 07/29. Diagnosis: Stroke: No - Discharge Data Discharge Date: 08/05/19 Discharge Disposition: Home, Self-Care 01 Condition: Stable - Referral to Home Health Primary Care Physician: PCP None - Discharge Diagnosis/Problem(s) (1) Abdominal pain SNOMED Code(s): 85880914 ICD Code: R10.9 - UNSPECIFIED ABDOMINAL PAIN Status: Acute Current Visit : Yes Qualifiers: Abdominal location: generalized Qualified Code(s): R10.84 - Generalized abdominal pain (2) Hypokalemia SNOMED Code(s): 88848603 ICD Code: E87.6 - HYPOKALEMIA Status: Acute Current Visit: Yes (3) Ulcerative colitis SNOMED Code(s): 21182690 ICD Code: K51.90 - ULCERATIVE COLITIS, UNSPECIFIED, WITHOUT COMPLICATIONS Status: Chronic Current Visit: Yes Qualifiers: Ulcerative colitis location: ulcerative pancolitis Digestive disease complication type: with rectal bleeding Qualified Code(s): K51.011 - Ulcerative (chronic) pancolitis with rectal bleeding (4) Dehydration SNOMED Code(s): 73789348 ICD Code: E86.0 - DEHYDRATION Status: Acute Current Visit: No (5) Hx of Clostridium difficile infection SNOMED Code(s): 969505879, 954807086 ICD Code: Z86.19 - PERSONAL HISTORY OF OTHER INFECTIOUS AND PARASITIC DISEASES Status: Chronic Current Visit: No - Patient Instructions Diet: GI Soft/Low Residue/Low Fiber Activity: No Strenuous Activities Driving: Do Not Drive (no driving today) Showering/Bathing: May Shower Notify Provider of: Fever, Increased Pain, Swelling and Redness, Drainage, Nausea and/or Vomiting - Discharge Plan *PRESCRIPTION DRUG MONITORING PROGRAM REVIEWED*: Not Applicable *COPY OF PRESCRIPTION DRUG MONITORING REPORT IN PATIENT MEJIA: Not Applicable Prescriptions/Med Rec: Acetaminophen/HYDROcodone [Jasper 325-5 MG] 1 tab PO Q6H PRN #20 tablet PRN Reason: Pain Home Medications: Home Meds Famotidine 20 mg PO DAILY 07/28/19 [History] predniSONE [Prednisone] 10 - 40 mg PO DAILY #82 tablet 07/31/19 [Rx] Acetaminophen/HYDROcodone [Jasper 325-5 MG] 1 tab PO Q6H PRN #20 tablet 08/05/19 [Rx] Oxygen Therapy Mode: Room Air Patient Handouts: Ulcerative Colitis, Adult, Low-Fiber Eating Plan Referrals: Red Seymour MD [Ordering Only Provider] - Roddy Allen MD [Ordering Only Provider] - 08/08/19 9:30 am (Please arrive 15 minutes early with a photo ID and insurance card. If you are not early, they will not see you.) - Discharge Summary/Plan Comment DC Time >30 min.: No - Patient Data Vitals - Most Recent: Last Vital Signs Temp 97.9 F 08/05/19 07:51 Pulse 73 08/05/19 07:51 Resp 14 08/05/19 07:51 BP 132/82 08/05/19 07:51 Pulse Ox 98 05/19/20 07:51 Weight - Most Recent: 59.874 kg I&O - Last 24 hours: Intake & Output 08/04/19 08/05/19 08/05/19 22:59 06:59 14:59 Intake Total 1050 2141 50 Output Total 2250 Balance 1050 -109 50 Lab Results - Last 24 hrs: Laboratory Results - last 24 hr 08/05/19 08/05/19 08/05/19 Range/Units 05:36 05:36 05:36 WBC 22.10 H (4.0-11.0) K/uL RBC 4.86 (4.30-5.90) M/uL Hgb 12.0 (12.0-16.0) g/dL Hct 38.0 (36.0-46.0) % MCV 78.2 L (80.0-98.0) fL MCH 24.7 L (27.0-32.0) pg MCHC 31.6 (31.0-37.0) g/dL RDW Std Deviation 55.2 (28.0-62.0) fl RDW Coeff of Buck 19 H (11.0-15.0) % Plt Count 600 H (150-400) K/uL MPV 8.90 (7.40-12.00) fL Neut % (Auto) 74.8 (48.0-80.0) % Lymph % (Auto) 14.7 L (16.0-40.0) % Parker % (Auto) 10.3 (0.0-15.0) % Eos % (Auto) 0.1 (0.0-7.0) % Baso % (Auto) 0.1 (0.0-1.5) % Neut # (Auto) 16.5 H (1.4-5.7) K/uL Lymph # (Auto) 3.3 H (0.6-2.4) K/uL Parker # (Auto) 2.3 H (0.0-0.8) K/uL Eos # (Auto) 0.0 (0.0-0.7) K/uL Baso # (Auto) 0.0 (0.0-0.1) K/uL Nucleated RBC % 0.0 /100WBC Nucleated RBCs # 0 K/uL Sodium 137 (136-145) mmol/L Potassium 3.8 (3.5-5.1) mmol/L Chloride 104 (98-107) mmol/L Carbon Dioxide 24.6 (21.0-32.0) mmol/L BUN 5 L (7.0-18.0) mg/dL Creatinine 0.6 (0.6-1.0) mg/dL Est Cr Clr Drug Dosing 128.08 mL/min Estimated GFR (MDRD) > 60.0 ml/min Glucose 97 (74-106) mg/dL Calcium 8.3 L (8.5-10.1) mg/dL Magnesium 1.7 L (1.8-2.4) mg/dL Med Orders - Current: Current Medications Hydrocodone Bitart/Acetaminophen (Jasper 325-5 Mg) 1 tab PO Q4H PRN PRN Reason: Pain Last Admin: 08/05/19 10:34 Dose: 1 tab Hydromorphone HCl (Dilaudid) 0.5 mg IVPUSH Q4H PRN PRN Reason: Pain Last Admin: 08/05/19 07:46 Dose: 0.5 mg Sodium Chloride (Normal Saline) 1,000 mls @ 125 mls/hr IV ASDIRECTED [facility] Last Admin: 08/05/19 05:29 Dose: 125 mls/hr Methylprednisolone Sodium Succinate (Solu-Medrol) 20 mg IV Q8H [facility] Last Admin: 08/05/19 04:57 Dose: 20 mg Ondansetron HCl (Zofran) 4 mg IVPUSH Q4H PRN PRN Reason: Nausea Last Admin: 08/01/19 15:44 Dose: 4 mg Pantoprazole Sodium (Protonix Iv) 40 mg IV Q12HR [facility] Last Admin: 08/05/19 09:40 Dose: 40 mg Promethazine HCl (Phenergan) 12.5 mg IM Q6H PRN PRN Reason: Nausea Discontinued Medications Hydromorphone HCl (Dilaudid) 0.5 mg IVPUSH ONETIME ONE Stop: 08/01/19 12:38 Last Admin: 08/01/19 13:17 Dose: 0.5 mg Hydromorphone HCl (Dilaudid) 0.5 mg IVPUSH Q4H PRN PRN Reason: Pain Last Admin: 08/03/19 09:01 Dose: 0.5 mg Sodium Chloride (Normal Saline) 1,000 mls @ 999 mls/hr IV STAT ONE Stop: 08/01/19 12:08 Last Admin: 08/01/19 11:34 Dose: 999 mls/hr Potassium Chloride 40 meq/ (Premix) 100 mls @ 25 mls/hr IV ONETIME ONE Stop: 08/01/19 16:36 Last Admin: 08/01/19 13:30 Dose: 25 mls/hr Magnesium Sulfate 2 gm/ Premix 50 mls @ 50 mls/hr IV ONETIME ONE Stop: 08/01/19 18:59 Last Admin: 08/01/19 19:12 Dose: 50 mls/hr Sodium Chloride (Normal Saline) 1,000 mls @ 999 mls/hr IV ONETIME ONE Stop: 08/01/19 15:55 Last Admin: 08/01/19 15:38 Dose: 999 mls/hr Magnesium Sulfate 4 gm/ Premix 100 mls @ 50 mls/hr IV ONETIME ONE Stop: 08/03/19 09:14 Last Admin: 08/03/19 07:49 Dose: 50 mls/hr Magnesium Sulfate 2 gm/ Premix 50 mls @ 50 mls/hr IV ONETIME ONE Stop: 08/04/19 09:02 Last Admin: 08/04/19 08:29 Dose: 50 mls/hr Magnesium Sulfate 2 gm/ Premix 50 mls @ 50 mls/hr IV ONETIME ONE Stop: 08/05/19 10:12 Last Admin: 08/05/19 09:44 Dose: 50 mls/hr Morphine Sulfate (Morphine) 2 mg IVPUSH ONETIME ONE Stop: 08/01/19 11:10 Last Admin: 08/01/19 11:34 Dose: 2 mg Ondansetron HCl (Zofran) 4 mg IVPUSH ONETIME ONE Stop: 08/01/19 11:09 Last Admin: 08/01/19 11:34 Dose: 4 mg Original Note: Discharge Summary - Hospital Course Brief History: This 19 year old female with pmh of ulcerative colitis, 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 She was just discharged home yesterday afternoon. She said the pain started later in the evening and continued through the night. This morning she vomited her medications up and feels no better. She came to the ED for evaluation. She reports she felt she had a temperature overnight and some chills with her stools. Stools remain bloody, no change in frequency or consistency since discharge. She reports myalgias and overall just not feeling well. She denies dysuria. In the ED leukocytosis 15,840, which is stable from discharge. Hgb 9.9, platelets 695, Na 135, K+ 2.8. Dr Seymour was contacted by [facility] CERTIFIED NURSE AIDE in ED, supportive care recommended for now. She will be admitted for abdominal pain, hypokalemia, and nausea. Humira was started prior to discharge on 07/29. Diagnosis: Stroke: No - Discharge Data Discharge Date: 08/04/19 Discharge Disposition: Home, Self-Care 01 Condition: Stable - Referral to Home Health Primary Care Physician: PCP None - Discharge Diagnosis/Problem(s) (1) Abdominal pain SNOMED Code(s): 88250111 ICD Code: R10.9 - UNSPECIFIED ABDOMINAL PAIN Status: Acute Current Visit : Yes Qualifiers: Abdominal location: generalized Qualified Code(s): R10.84 - Generalized abdominal pain (2) Hypokalemia SNOMED Code(s): 13045064 ICD Code: E87.6 - HYPOKALEMIA Status: Acute Current Visit: Yes (3) Ulcerative colitis SNOMED Code(s): 63825917 ICD Code: K51.90 - ULCERATIVE COLITIS, UNSPECIFIED, WITHOUT COMPLICATIONS Status: Chronic Current Visit: Yes Qualifiers: Ulcerative colitis location: ulcerative pancolitis Digestive disease complication type: with rectal bleeding Qualified Code(s): K51.011 - Ulcerative (chronic) pancolitis with rectal bleeding (4) Dehydration SNOMED Code(s): 09144461 ICD Code: E86.0 - DEHYDRATION Status: Acute Current Visit: No (5) Hx of Clostridium difficile infection SNOMED Code(s): 960909162, 040056489 ICD Code: Z86.19 - PERSONAL HISTORY OF OTHER INFECTIOUS AND PARASITIC DISEASES Status: Chronic Current Visit: No - Patient Summary/Data Hospital Course: Admitting Diagnoses: abdominal pain secondary to UC flare Discharge Diagnoses: UC flare Keysha was admitted secondary to nausea and vomiting along with abdominal pain, secondary to UC flare. Dr Seymour contacted, no need for transfer. Supportive care. She was treated with IVFs, IV Solumedol and pain control. She slowly improved over the next follow days, today she is tolerating soft diet and PO liquids. During stay, she was given 2 units of blood during her stay, heb remains stable. She will be discharged home today, continue prednisone taper from previous discharge. Follow up with PCP and Dr Seymour. She was asking about pain control at home, we had a discussion about this and want to try limit narcotics. She will go home with Tylenol for pain. She is to return to ED or clinic if concerns should arise. - Patient Instructions Diet: GI Soft/Low Residue/Low Fiber Activity: No Strenuous Activities Driving: Do Not Drive (no driving today) Showering/Bathing: May Shower Notify Provider of: Fever, Increased Pain, Swelling and Redness, Drainage, Nausea and/or Vomiting - Discharge Plan *PRESCRIPTION DRUG MONITORING PROGRAM REVIEWED*: Not Applicable *COPY OF PRESCRIPTION DRUG MONITORING REPORT IN PATIENT MEJIA: Not Applicable Home Medications: Home Meds Famotidine 20 mg PO DAILY 07/28/19 [History] predniSONE [Prednisone] 10 - 40 mg PO DAILY #82 tablet 07/31/19 [Rx] Oxygen Therapy Mode: Room Air Referrals: Red Seymour MD [Ordering Only Provider] - Roddy Allen MD [Ordering Only Provider] - 08/08/19 9:30 am (Please arrive 15 minutes early with a photo ID and insurance card. If you are not early, they will not see you.) - Discharge Summary/Plan Comment DC Time >30 min.: No - Patient Data Vitals - Most Recent: Last Vital Signs Temp 98.5 F 08/04/19 04:07 Pulse 52 L 08/04/19 04:07 Resp 16 08/04/19 04:07 BP 120/61 08/04/19 04:07 Pulse Ox 98 08/04/19 04:07 Weight - Most Recent: 59.874 kg I&O - Last 24 hours: Intake & Output 08/03/19 08/04/19 08/04/19 22:59 06:59 14:59 Intake Total 1289 1266 Output Total 1150 1200 Balance 139 66 Lab Results - Last 24 hrs: Laboratory Results - last 24 hr 08/03/19 08/03/19 08/04/19 Range/Units 11:54 21:10 05:43 WBC 18.77 H (4.0-11.0) K/uL RBC 4.83 (4.30-5.90) M/uL Hgb 13.2 12.0 (12.0-16.0) g/dL Hct 40.4 37.4 (36.0-46.0) % MCV 77.4 L (80.0-98.0) fL MCH 24.8 L (27.0-32.0) pg MCHC 32.1 (31.0-37.0) g/dL RDW Std Deviation 53.7 (28.0-62.0) fl RDW Coeff of Buck 19 H (11.0-15.0) % Plt Count 583 H (150-400) K/uL MPV 9.10 (7.40-12.00) fL Neut % (Auto) 68.0 (48.0-80.0) % Lymph % (Auto) 17.3 (16.0-40.0) % Parker % (Auto) 14.4 (0.0-15.0) % Eos % (Auto) 0.1 (0.0-7.0) % Baso % (Auto) 0.2 (0.0-1.5) % Neut # (Auto) 12.8 H (1.4-5.7) K/uL Lymph # (Auto) 3.3 H (0.6-2.4) K/uL Parker # (Auto) 2.7 H (0.0-0.8) K/uL Eos # (Auto) 0.0 (0.0-0.7) K/uL Baso # (Auto) 0.0 (0.0-0.1) K/uL Nucleated RBC % 0.0 /100WBC Nucleated RBCs # 0 K/uL Sodium (136-145) mmol/L Potassium (3.5-5.1) mmol/L Chloride (98-107) mmol/L Carbon Dioxide (21.0-32.0) mmol/L BUN (7.0-18.0) mg/dL Creatinine (0.6-1.0) mg/dL Est Cr Clr Drug Dosing mL/min Estimated GFR (MDRD) ml/min Glucose (74-106) mg/dL Calcium (8.5-10.1) mg/dL Phosphorus (2.6-4.7) mg/dL Magnesium (1.8-2.4) mg/dL Blood Type O NEGATIVE Antibody Screen NEGATIVE Crossmatch See Detail 08/04/19 Range/Units 05:43 WBC (4.0-11.0) K/uL RBC (4.30-5.90) M/uL Hgb (12.0-16.0) g/dL Hct (36.0-46.0) % MCV (80.0-98.0) fL MCH (27.0-32.0) pg MCHC (31.0-37.0) g/dL RDW Std Deviation (28.0-62.0) fl RDW Coeff of Buck (11.0-15.0) % Plt Count (150-400) K/uL MPV (7.40-12.00) fL Neut % (Auto) (48.0-80.0) % Lymph % (Auto) (16.0-40.0) % Parker % (Auto) (0.0-15.0) % Eos % (Auto) (0.0-7.0) % Baso % (Auto) (0.0-1.5) % Neut # (Auto) (1.4-5.7) K/uL Lymph # (Auto) (0.6-2.4) K/uL Parker # (Auto) (0.0-0.8) K/uL Eos # (Auto) (0.0-0.7) K/uL Baso # (Auto) (0.0-0.1) K/uL Nucleated RBC % /100WBC Nucleated RBCs # K/uL Sodium 136 (136-145) mmol/L Potassium 3.5 (3.5-5.1) mmol/L Chloride 104 (98-107) mmol/L Carbon Dioxide 24.7 (21.0-32.0) mmol/L BUN 10 (7.0-18.0) mg/dL Creatinine 0.7 (0.6-1.0) mg/dL Est Cr Clr Drug Dosing 109.78 mL/min Estimated GFR (MDRD) > 60.0 ml/min Glucose 102 (74-106) mg/dL Calcium 8.0 L (8.5-10.1) mg/dL Phosphorus 2.9 (2.6-4.7) mg/dL Magnesium 1.6 L (1.8-2.4) mg/dL Blood Type Antibody Screen Crossmatch Med Orders - Current: Current Medications Hydromorphone HCl (Dilaudid) 0.5 mg IVPUSH Q4H PRN PRN Reason: Pain Last Admin: 08/04/19 09:57 Dose: 0.5 mg Sodium Chloride (Normal Saline) 1,000 mls @ 125 mls/hr IV ASDIRECTED [facility] Last Admin: 08/04/19 03:46 Dose: 125 mls/hr Methylprednisolone Sodium Succinate (Solu-Medrol) 20 mg IV Q8H [facility] Last Admin: 08/04/19 05:26 Dose: 20 mg Ondansetron HCl (Zofran) 4 mg IVPUSH Q4H PRN PRN Reason: Nausea Last Admin: 08/01/19 15:44 Dose: 4 mg Pantoprazole Sodium (Protonix Iv) 40 mg IV Q12HR [facility] Last Admin: 08/04/19 08:32 Dose: 40 mg Promethazine HCl (Phenergan) 12.5 mg IM Q6H PRN PRN Reason: Nausea Discontinued Medications Hydromorphone HCl (Dilaudid) 0.5 mg IVPUSH ONETIME ONE Stop: 08/01/19 12:38 Last Admin: 08/01/19 13:17 Dose: 0.5 mg Hydromorphone HCl (Dilaudid) 0.5 mg IVPUSH Q4H PRN PRN Reason: Pain Last Admin: 08/03/19 09:01 Dose: 0.5 mg Sodium Chloride (Normal Saline) 1,000 mls @ 999 mls/hr IV STAT ONE Stop: 08/01/19 12:08 Last Admin: 08/01/19 11:34 Dose: 999 mls/hr Potassium Chloride 40 meq/ (Premix) 100 mls @ 25 mls/hr IV ONETIME ONE Stop: 08/01/19 16:36 Last Admin: 08/01/19 13:30 Dose: 25 mls/hr Magnesium Sulfate 2 gm/ Premix 50 mls @ 50 mls/hr IV ONETIME ONE Stop: 08/01/19 18:59 Last Admin: 08/01/19 19:12 Dose: 50 mls/hr Sodium Chloride (Normal Saline) 1,000 mls @ 999 mls/hr IV ONETIME ONE Stop: 08/01/19 15:55 Last Admin: 08/01/19 15:38 Dose: 999 mls/hr Magnesium Sulfate 4 gm/ Premix 100 mls @ 50 mls/hr IV ONETIME ONE Stop: 08/03/19 09:14 Last Admin: 08/03/19 07:49 Dose: 50 mls/hr Magnesium Sulfate 2 gm/ Premix 50 mls @ 50 mls/hr IV ONETIME ONE Stop: 08/04/19 09:02 Last Admin: 08/04/19 08:29 Dose: 50 mls/hr Morphine Sulfate (Morphine) 2 mg IVPUSH ONETIME ONE Stop: 08/01/19 11:10 Last Admin: 08/01/19 11:34 Dose: 2 mg Ondansetron HCl (Zofran) 4 mg IVPUSH ONETIME ONE Stop: 08/01/19 11:09 Last Admin: 08/01/19 11:34 Dose: 4 mg - Exam General: Reports: Alert Lungs: Reports: Clear to Auscultation, Normal Respiratory Effort Cardiovascular: Reports: Regular Rate, Regular Rhythm GI/Abdominal Exam: Normal Bowel Sounds, Soft, Non-Tender Neurological: Reports: No New Focal Deficit Psy/Mental Status: Reports: Alert, Normal Affect, Normal Mood
--- NOTE | 2019-08-04 13:39 | PCM.PN ---
- General Info Date of Service: 08/04/19 Admission Dx/Problem (Free Text): Admission Diagnosis/Problem Admission Diagnosis/Problem Hypokalemia Subjective Update: Was eager to go home this morning, ate lunch and is now having increased pain and is not wanting to go home as this is what happened last time and she decided to go. - Review of Systems General: Reports: Fatigue, Malaise. Denies: Fever, Weakness HEENT: Reports: No Symptoms Pulmonary: Reports: No Symptoms. Denies: Shortness of Breath Cardiovascular: Reports: No Symptoms. Denies: Chest Pain Gastrointestinal: Reports: Abdominal Pain, Diarrhea. Denies: Nausea, Vomiting Genitourinary: Reports: No Symptoms. Denies: Dysuria, Frequency, Burning Musculoskeletal: Reports: No Symptoms Skin: Reports: No Symptoms Neurological: Reports: No Symptoms Psychiatric: Reports: No Symptoms - Patient Data Vitals - Most Recent: Last Vital Signs Temp 98.5 F 08/04/19 04:07 Pulse 52 L 08/04/19 04:07 Resp 16 08/04/19 04:07 BP 120/61 08/04/19 04:07 Pulse Ox 98 08/04/19 04:07 Weight - Most Recent: 59.874 kg I&O - Last 24 Hours: Intake & Output 08/03/19 08/04/19 08/04/19 22:59 06:59 14:59 Intake Total 1289 1266 Output Total 1150 1200 Balance 139 66 Lab Results Last 24 Hours: Laboratory Results - last 24 hr 08/03/19 08/03/19 08/04/19 Range/Units 11:54 21:10 05:43 WBC 18.77 H (4.0-11.0) K/uL RBC 4.83 (4.30-5.90) M/uL Hgb 13.2 12.0 (12.0-16.0) g/dL Hct 40.4 37.4 (36.0-46.0) % MCV 77.4 L (80.0-98.0) fL MCH 24.8 L (27.0-32.0) pg MCHC 32.1 (31.0-37.0) g/dL RDW Std Deviation 53.7 (28.0-62.0) fl RDW Coeff of Buck 19 H (11.0-15.0) % Plt Count 583 H (150-400) K/uL MPV 9.10 (7.40-12.00) fL Neut % (Auto) 68.0 (48.0-80.0) % Lymph % (Auto) 17.3 (16.0-40.0) % [place] % (Auto) 14.4 (0.0-15.0) % Eos % (Auto) 0.1 (0.0-7.0) % Baso % (Auto) 0.2 (0.0-1.5) % Neut # (Auto) 12.8 H (1.4-5.7) K/uL Lymph # (Auto) 3.3 H (0.6-2.4) K/uL [place] # (Auto) 2.7 H (0.0-0.8) K/uL Eos # (Auto) 0.0 (0.0-0.7) K/uL Baso # (Auto) 0.0 (0.0-0.1) K/uL Nucleated RBC % 0.0 /100WBC Nucleated RBCs # 0 K/uL Sodium (136-145) mmol/L Potassium (3.5-5.1) mmol/L Chloride (98-107) mmol/L Carbon Dioxide (21.0-32.0) mmol/L BUN (7.0-18.0) mg/dL Creatinine (0.6-1.0) mg/dL Est Cr Clr Drug Dosing mL/min Estimated GFR (MDRD) ml/min Glucose (74-106) mg/dL Calcium (8.5-10.1) mg/dL Phosphorus (2.6-4.7) mg/dL Magnesium (1.8-2.4) mg/dL Blood Type O NEGATIVE Antibody Screen NEGATIVE Crossmatch See Detail 08/04/19 Range/Units 05:43 WBC (4.0-11.0) K/uL RBC (4.30-5.90) M/uL Hgb (12.0-16.0) g/dL Hct (36.0-46.0) % MCV (80.0-98.0) fL MCH (27.0-32.0) pg MCHC (31.0-37.0) g/dL RDW Std Deviation (28.0-62.0) fl RDW Coeff of Buck (11.0-15.0) % Plt Count (150-400) K/uL MPV (7.40-12.00) fL Neut % (Auto) (48.0-80.0) % Lymph % (Auto) (16.0-40.0) % [place] % (Auto) (0.0-15.0) % Eos % (Auto) (0.0-7.0) % Baso % (Auto) (0.0-1.5) % Neut # (Auto) (1.4-5.7) K/uL Lymph # (Auto) (0.6-2.4) K/uL [place] # (Auto) (0.0-0.8) K/uL Eos # (Auto) (0.0-0.7) K/uL Baso # (Auto) (0.0-0.1) K/uL Nucleated RBC % /100WBC Nucleated RBCs # K/uL Sodium 136 (136-145) mmol/L Potassium 3.5 (3.5-5.1) mmol/L Chloride 104 (98-107) mmol/L Carbon Dioxide 24.7 (21.0-32.0) mmol/L BUN 10 (7.0-18.0) mg/dL Creatinine 0.7 (0.6-1.0) mg/dL Est Cr Clr Drug Dosing 109.78 mL/min Estimated GFR (MDRD) > 60.0 ml/min Glucose 102 (74-106) mg/dL Calcium 8.0 L (8.5-10.1) mg/dL Phosphorus 2.9 (2.6-4.7) mg/dL Magnesium 1.6 L (1.8-2.4) mg/dL Blood Type Antibody Screen Crossmatch Med Orders - Current: Current Medications Hydromorphone HCl (Dilaudid) 0.5 mg IVPUSH Q4H PRN PRN Reason: Pain Last Admin: 08/04/19 09:57 Dose: 0.5 mg Sodium Chloride (Normal Saline) 1,000 mls @ 125 mls/hr IV ASDIRECTED DONNIE Last Admin: 08/04/19 03:46 Dose: 125 mls/hr Methylprednisolone Sodium Succinate (Solu-Medrol) 20 mg IV Q8H DONNIE Last Admin: 08/04/19 05:26 Dose: 20 mg Ondansetron HCl (Zofran) 4 mg IVPUSH Q4H PRN PRN Reason: Nausea Last Admin: 08/01/19 15:44 Dose: 4 mg Pantoprazole Sodium (Protonix Iv) 40 mg IV Q12HR [facility] Last Admin: 08/04/19 08:32 Dose: 40 mg Promethazine HCl (Phenergan) 12.5 mg IM Q6H PRN PRN Reason: Nausea Discontinued Medications Hydromorphone HCl (Dilaudid) 0.5 mg IVPUSH ONETIME ONE Stop: 08/01/19 12:38 Last Admin: 08/01/19 13:17 Dose: 0.5 mg Hydromorphone HCl (Dilaudid) 0.5 mg IVPUSH Q4H PRN PRN Reason: Pain Last Admin: 08/03/19 09:01 Dose: 0.5 mg Sodium Chloride (Normal Saline) 1,000 mls @ 999 mls/hr IV STAT ONE Stop: 08/01/19 12:08 Last Admin: 08/01/19 11:34 Dose: 999 mls/hr Potassium Chloride 40 meq/ (Premix) 100 mls @ 25 mls/hr IV ONETIME ONE Stop: 08/01/19 16:36 Last Admin: 08/01/19 13:30 Dose: 25 mls/hr Magnesium Sulfate 2 gm/ Premix 50 mls @ 50 mls/hr IV ONETIME ONE Stop: 08/01/19 18:59 Last Admin: 08/01/19 19:12 Dose: 50 mls/hr Sodium Chloride (Normal Saline) 1,000 mls @ 999 mls/hr IV ONETIME ONE Stop: 08/01/19 15:55 Last Admin: 08/01/19 15:38 Dose: 999 mls/hr Magnesium Sulfate 4 gm/ Premix 100 mls @ 50 mls/hr IV ONETIME ONE Stop: 08/03/19 09:14 Last Admin: 08/03/19 07:49 Dose: 50 mls/hr Magnesium Sulfate 2 gm/ Premix 50 mls @ 50 mls/hr IV ONETIME ONE Stop: 08/04/19 09:02 Last Admin: 08/04/19 08:29 Dose: 50 mls/hr Morphine Sulfate (Morphine) 2 mg IVPUSH ONETIME ONE Stop: 08/01/19 11:10 Last Admin: 08/01/19 11:34 Dose: 2 mg Ondansetron HCl (Zofran) 4 mg IVPUSH ONETIME ONE Stop: 08/01/19 11:09 Last Admin: 08/01/19 11:34 Dose: 4 mg - Exam Lungs: Clear to Auscultation, Normal Respiratory Effort Cardiovascular: Regular Rate, Regular Rhythm GI/Abdominal Exam: Normal Bowel Sounds, Soft, Tender (throughout) Extremities: Normal Inspection, Normal Range of Motion, Non-Tender Neurological: No New Focal Deficit Psy/Mental Status: Alert, Normal Affect, Normal Mood Sepsis Event Note - Evaluation Sepsis Screening Result: No Definite Risk - Focused Exam Vital Signs: Vital Signs Temp Pulse Resp BP Pulse Ox 08/04/19 04:07 98.5 F 52 L 16 120/61 98 Date Exam was Performed: 08/04/19 Time Exam was Performed: 13:39 - Problem List & Annotations (1) Abdominal pain SNOMED Code(s): 82249185 Code(s): R10.9 - UNSPECIFIED ABDOMINAL PAIN Status: Acute Current Visit: Yes Qualifiers: Abdominal location: generalized Qualified Code(s): R10.84 - Generalized abdominal pain (2) Hypokalemia SNOMED Code(s): 42172562 Code(s): E87.6 - HYPOKALEMIA Status: Acute Current Visit: Yes (3) Ulcerative colitis SNOMED Code(s): 24282359 Code(s): K51.90 - ULCERATIVE COLITIS, UNSPECIFIED, WITHOUT COMPLICATIONS Status: Chronic Current Visit: Yes Qualifiers: Ulcerative colitis location: ulcerative pancolitis Digestive disease complication type: with rectal bleeding Qualified Code(s): K51.011 - Ulcerative (chronic) pancolitis with rectal bleeding (4) Dehydration SNOMED Code(s): 77038549 Code(s): E86.0 - DEHYDRATION Status: Acute Current Visit: No (5) Hx of Clostridium difficile infection SNOMED Code(s): 922805062, 848974659 Code(s): Z86.19 - PERSONAL HISTORY OF OTHER INFECTIOUS AND PARASITIC DISEASES Status: Chronic Current Visit: No - Problem List Review Problem List Initiated/Reviewed/Updated: Yes - My Orders Last 24 Hours: My Active Orders 08/04/19 08:57 Ready for Discharge [RC] PER UNIT ROUTINE - Plan Plan:: This 19 year old female admitted with UC flare, with abdominal pain, N/V, hypokalemia and dehydration 1. Ulcerative colitis flare - Sift diet - Dilaudid 0.5 mg PRN pain - Zofran and phernergan PRN nausea - Solumedrol 20 mg IV TID - Protonix 40 mg IV BID 2. Electrolyte abnormalities - Replace Magnesium IV today - Recheck electrolytes in am 3. Anemia - Chronic blood loss and ADRYAN - s/p 2 PRBCs transfusion, Hgb stable. Monitor VTE prophylaxis: SCDs only due to bleeding Dispo: 2 days , discharge canceled today.
[2019-08-05] MEDS: HYDROmorphone 1 MG/ML Syringe IVPUSH PRN ×2 (03:32→07:46)
[2019-08-05] MEDS: methylPREDNISolone Sodium Succinate 40 MG/1 ML SDV IV SCH ×2 (04:57→12:33)
[2019-08-05] MEDS: Sodium Chloride 0.9% 1,000 ML IV SCH (05:29)
[2019-08-05 06:30] LABS: BLOOD UREA NITROGEN,BUN 5 mg/dL (7.0-18.0); CARBON DIOXIDE,CO2 24.6 mmol/L (21.0-32.0); CHLORIDE,CL 104 mmol/L (98-107); GLUCOSE RANDOM 97 mg/dL (74-106); POTASSIUM,K 3.8 mmol/L (3.5-5.1); SODIUM,NA 137 mmol/L (136-145)
[2019-08-05] MEDS ORDERED: Acetaminophen/HYDROcodone 325-5 MG Tab PO PRN (07:52)
[2019-08-05] MEDS ORDERED: Magnesium Sulfate/Water 2 GM in Premix Bag 1 BAG IV ONE (09:13)
[2019-08-05] MEDS: Pantoprazole 40 MG Vial IV SCH (09:40)
== END 2019-08-05 15:01 | disposition home or self-care (01) | DRG 245 ==
LOC: MW.ED 10:51 → MW.MS 12:30 → OBSVTOIN 19:37 → MW.MS 08-03 19:37
PROVIDERS: ADMIT Internal Medicine; ATTEND Internal Medicine
PROC: 30233N1 Transfusion of Nonautologous Red Blood Cells into Peripheral Vein, Percutaneous Approach (ICD-10-PCS; principal; 2019-08-03)
DX: K51.011 Ulcerative (chronic) pancolitis with rectal bleeding (principal); E87.6 Hypokalemia; E46 Unspecified protein-calorie malnutrition; E86.0 Dehydration; D50.0 Iron deficiency anemia secondary to blood loss (chronic); Z86.19 Personal history of other infectious and parasitic diseases; Z79.52 Long term (current) use of systemic steroids; Z79.899 Other long term (current) drug therapy; Z68.22 Body mass index [BMI] 22.0-22.9, adult
CPT/HCPCS: 36415; 36430; 80048; 80053; 83605; 83735; 84100; 85014; 85018; 85025; 86850; 86900; 86901; 86920; 86921; 86922; 96361; 96374; 96375; 99283; 99285-25; A9270-GY; C9113; J1170; J2270; J2405; J2920; J3475; J3480; J7030; P9016

== ENCOUNTER 2019-08-09 09:43 | Inpatient (IN) | payer BC ==
[2019-08-09] MEDS ORDERED: Sodium Chloride 0.9% 10 ML Syringe FLUSH PRN (09:52)
[2019-08-09] MEDS ORDERED: Ondansetron 4 MG/2 ML SDV IVPUSH ONE (09:52)
[2019-08-09] MEDS ORDERED: Sodium Chloride 0.9% 1,000 ML IV ONE (09:52)
[2019-08-09] MEDS ORDERED: Sodium Chloride 0.9% 2.5 ML Syringe FLUSH PRN (09:52)
--- NOTE | 2019-08-09 10:17 | EDM.PDOC ---
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 Associated with bright red blood per rectum about 10 episodes today. Her abdominal pain is diffuse, moderate, nonradiating, constant , with no alleviating factors. She was discharged from the hospital for ulcerative colitis flareup this week. Today she denies fever, nausea, vomiting , dysuria but admits to chills. ROS: A 10-point review of systems, other than pertinent positives and negatives as stated per HPI, is otherwise negative PHYSICAL EXAM General: AOx4, GCS = 15, moderate distress HEENT: dry mucous membrane Neck: supple, no meningismus, no Kernig or Brudzinski Cardiac: S1S2 tachycardia Respiratory: CTAB, no crackles or rales, no wheezing Abdomen: Soft, diffuse abdominal tenderness, no R/G Back: nontender Musculoskeletal: NVI distally, no deformity Neuro: No focal deficits. MEDICAL DECISION MAKING: I reviewed the patients past medical records, lab and radiographic findings. I discussed the case with family members. My differential diagnosis included: Ulcerative colitis flareup, GI bleed, anemia. Patient's pain was unchanged despite IV fluids and morphine, will admit for intractable pain. Onset: Today Abdominal Pain Score (Numeric/FACES): 9 - Related Data Allergies Allergy/AdvReac Type Severity Reaction Status Date / Time No Known Allergies Allergy Verified 08/09/19 09:54 Home Meds: Home Meds predniSONE [Prednisone] 10 - 40 mg PO DAILY #82 tablet 07/31/19 [Rx] Magnesium 1 tab PO ASDIRECTED 08/09/19 [History] Ondansetron [Zofran] 4 mg PO ASDIRECTED PRN 08/09/19 [History] Past Medical History - Past Health History Medical/Surgical History: Denies Medical/Surgical History HEENT History: Reports: Other (See Below) Other HEENT History: tonsillitis Cardiovascular History: Reports: None Respiratory History: Reports: None Gastrointestinal History: Reports: Inflammatory Bowel Disease, Other (See Below) Other Gastrointestinal History: History of Ulcerative Colitis Genitourinary History: Reports: None HATCHERY EMPLOYEE History: Reports: Other (See Below) Other HATCHERY EMPLOYEE History: Bacterial vaginitis, yeast infection Musculoskeletal History: Reports: None Neurological History: Reports: None Psychiatric History: Reports: ADHD Endocrine/Metabolic History: Reports: None Insulin Pump Model and Bill Recapitulation Clerk: N/A Hematologic History: Reports: Other (See Below) Other Hematologic History: Blood Transfussions 2018 Immunologic History: Reports: None Oncologic (Cancer) History: Reports: None Dermatologic History: Reports: None - Infectious Disease History Infectious Disease History: Reports: None - Past Surgical History Head Surgeries/Procedures: Reports: None GI Surgical History: Reports: None, Colonoscopy Female Surgical History: Reports: None Social & Family History - Family History Family Medical History: Noncontributory - Tobacco Use Smoking Status *Q: Unknown Ever Smoked - Caffeine Use Caffeine Use: Reports: None Other Caffeine Use: seldom - Recreational Drug Use Recreational Drug Use: No ED ROS GENERAL - Review of Systems Review Of Systems: See Below (see dictation) ED EXAM, GI/ABD - Physical Exam Exam: See Below (see dictation) General Appearance: Alert, Moderate Distress Course - Vital Signs Last Recorded V/S: Last Vital Signs Temp 98.8 F 08/09/19 09:55 Pulse 112 H 08/09/19 11:15 Resp 18 08/09/19 09:55 BP 111/69 08/09/19 11:15 Pulse Ox 98 08/09/19 11:15 - Orders/Labs/Meds Orders: Active Orders 24 hr Category Date Time Status HCG QUALITATIVE,URINE [URCHEM] Stat Lab 08/09/19 09:53 Ordered UA W/MICROSCOPIC [URIN] Stat Lab 08/09/19 09:53 Ordered Sodium Chloride 0.9% [Saline Flush] Med 08/09/19 09:52 Active 10 ml FLUSH ASDIRECTED PRN Sodium Chloride 0.9% [Saline Flush] Med 08/09/19 09:52 Active 2.5 ml FLUSH ASDIRECTED PRN Saline Lock Insert [OM.PC] Stat Oth 08/09/19 09:52 Ordered Medication Orders Sodium Chloride (Saline Flush) 10 ml FLUSH ASDIRECTED PRN PRN Reason: Keep Vein Open Last Admin: 08/09/19 10:28 Dose: 10 ml Sodium Chloride (Saline Flush) 2.5 ml FLUSH ASDIRECTED PRN PRN Reason: Keep Vein Open Last Admin: 08/09/19 10:28 Dose: 2.5 ml Labs: Laboratory Tests 08/09/19 08/09/19 08/09/19 Range/Units 10:45 10:45 10:45 WBC 14.63 H (4.0-11.0) K/uL RBC 5.04 (4.30-5.90) M/uL Hgb 12.5 (12.0-16.0) g/dL Hct 39.8 (36.0-46.0) % MCV 79.0 L (80.0-98.0) fL MCH 24.8 L (27.0-32.0) pg MCHC 31.4 (31.0-37.0) g/dL RDW Std Deviation 56.3 (28.0-62.0) fl RDW Coeff of Buck 19 H (11.0-15.0) % Plt Count 584 H (150-400) K/uL MPV 8.70 (7.40-12.00) fL Add Manual Diff YES Neutrophils % (Manual) 31 L (48.0-80.0) % Band Neutrophils % 23 % Lymphocytes % (Manual) 35 (16.0-40.0) % Monocytes % (Manual) 7 (0.0-15.0) % Metamyelocytes % 4 % Nucleated RBC % 0.0 /100WBC Absolute Seg Neuts 4.5 (1.4-5.7) Band Neutrophils # 3.4 Lymphocytes # (Manual) 5.1 H (0.6-2.4) Monocytes # (Manual) 1.0 H (0.0-0.8) Absolute Metamyelocyte 0.6 Nucleated RBCs # 0 K/uL Sodium 135 L (136-145) mmol/L Potassium 3.1 L (3.5-5.1) mmol/L Chloride 101 (98-107) mmol/L Carbon Dioxide 25.5 (21.0-32.0) mmol/L BUN 9 (7.0-18.0) mg/dL Creatinine 0.9 (0.6-1.0) mg/dL Est Cr Clr Drug Dosing 72.93 mL/min Estimated GFR (MDRD) > 60.0 ml/min Glucose 85 (74-106) mg/dL Calcium 9.1 (8.5-10.1) mg/dL Magnesium 1.4 L (1.8-2.4) mg/dL Total Bilirubin 0.4 (0.2-1.0) mg/dL AST 10 L (15-37) IU/L ALT 24 (14-63) IU/L Alkaline Phosphatase 75 (46-116) U/L Total Protein 7.3 (6.4-8.2) g/dL Albumin 2.8 L (3.4-5.0) g/dL Globulin 4.5 H (2.6-4.0) g/dL Albumin/Globulin Ratio 0.6 L (0.9-1.6) Lipase 58 L (73-393) U/L Meds: Medications Generic Name Dose Route Start Last Admin Trade Name Freq PRN Reason Stop Dose Admin Sodium Chloride 10 ml 08/09/19 09:52 08/09/19 10:28 Saline Flush FLUSH 10 ml ASDIRECTED PRN Administration Keep Vein Open Sodium Chloride 2.5 ml 08/09/19 09:52 08/09/19 10:28 Saline Flush FLUSH 2.5 ml ASDIRECTED PRN Administration Keep Vein Open Discontinued Medications Generic Name Dose Route Start Last Admin Trade Name Freq PRN Reason Stop Dose Admin Sodium Chloride 1,000 mls @ 999 mls/hr 08/09/19 09:52 08/09/19 10:28 Normal Saline IV 08/09/19 10:52 999 mls/hr BOLUS ONE Administration Morphine Sulfate 4 mg 08/09/19 10:26 08/09/19 10:30 Morphine IVPUSH 08/09/19 10:27 4 mg ONETIME ONE Administration Ondansetron HCl 4 mg 08/09/19 09:52 08/09/19 10:28 Zofran IVPUSH 08/09/19 09:53 4 mg ONETIME ONE Administration - Re-Assessments/Exams Free Text/Narrative Re-Assessment/Exam: 08/09/19 12:00 -patient's pain did not change after IV fluids and morphine, will admit for abdominal pain. Free Text/Narrative Re-Assessment/Exam: 08/09/19 12:18 Case discussed with Paulo Nguyen, who agrees to assume care at this point. The hospitalist's documentation supersedes all other documentation on this patient with regard to any conflicts or discrepancies from this point forward. Any emergency conditions have been treated to the ability of the ED prior to admission. Departure - Departure Time of Disposition: 12:01 Disposition: Refer to Observation Condition: Fair Clinical Impression: Abdominal pain Qualifiers: Abdominal location: generalized Qualified Code(s): R10.84 - Generalized abdominal pain - Discharge Information Referrals: Roddy Allen MD [Primary Care Provider] - Forms: ED Department Discharge Sepsis Event Note - Evaluation Sepsis Screening Result: No Definite Risk - Focused Exam Vital Signs: Vital Signs Temp Pulse Resp BP Pulse Ox 08/09/19 11:15 112 H 111/69 98 08/09/19 09:55 98.8 F 128 H 18 134/75 97 Date Exam was Performed: 08/09/19 Time Exam was Performed: 12:18 - My Orders Last 24 Hours: My Active Orders 08/09/19 09:52 Sodium Chloride 0.9% [Saline Flush] 10 ml FLUSH ASDIRECTED PRN Sodium Chloride 0.9% [Saline Flush] 2.5 ml FLUSH ASDIRECTED PRN Saline Lock Insert [OM.PC] Stat 08/09/19 09:53 HCG QUALITATIVE,URINE [URCHEM] Stat UA W/MICROSCOPIC [URIN] Stat - Assessment/Plan Last 24 Hours: My Active Orders 08/09/19 09:52 Sodium Chloride 0.9% [Saline Flush] 10 ml FLUSH ASDIRECTED PRN Sodium Chloride 0.9% [Saline Flush] 2.5 ml FLUSH ASDIRECTED PRN Saline Lock Insert [OM.PC] Stat 08/09/19 09:53 HCG QUALITATIVE,URINE [URCHEM] Stat UA W/MICROSCOPIC [URIN] Stat
[2019-08-09] MEDS ORDERED: Morphine 4 MG/ML Syringe IVPUSH ONE (10:26)
[2019-08-09 11:19] LABS: BLOOD UREA NITROGEN,BUN 9 mg/dL (7.0-18.0); CARBON DIOXIDE,CO2 25.5 mmol/L (21.0-32.0); CHLORIDE,CL 101 mmol/L (98-107); GLUCOSE RANDOM 85 mg/dL (74-106); LIPASE 58 U/L (73-393); POTASSIUM,K 3.1 mmol/L (3.5-5.1); SODIUM,NA 135 mmol/L (136-145)
[2019-08-09] MEDS ORDERED: NS + KCl 20mEq/L 1,000 ML IV SCH (12:30)
--- NOTE | 2019-08-09 12:38 | PCM.HP.2 ---
H&P History of Present Illness - General Date of Service: 08/09/19 Admit Problem/Dx: Admission Diagnosis/Problem Admission Diagnosis/Problem Abdominal pain - History of Present Illness Initial Comments - Free Text/Narative: The patient is a 19 year old female with past medical history of Ulcerative colitis, recurrent Cdiff s/p fecal transplant, and anemia who presented to the ER with abdominal pain and bloody diarrhea. Reports she saw her PCP yesterday, no change in management and after that symptoms started. Her pain is all over her abdomen and is sharp and crampy, similar to UC flares in the past. Has been taking prednisone at home and attempt to take hydrocodone but it didn't help.Reports more than 10 bloody bowel movements in the last 24 hours. Denies nausea/vomiting but felt like she had fever/chills. Patient was admitted for UC flare from 07/28/19- 07/31/19 during which she was started on Humira, next dose if 08/14/19. She was admitted from 08/01/19- 08/04/19 which required blood transfusion. In the ER, work up revealed leukocytosis of 14.6 (on steroids), hemoglobin of 12.5 (discharged on 08/04 with hemoglobin of 12.5). She was hypokalemic with potassium of 3.1 and hypomagnesemia with mag of 1.4. No elevation in lipase. In the ER she was given IVF, potassium, morphine, and Zofran. Abdominal Pain Score (Numeric/FACES): 9 - Related Data Allergies/Adverse Reactions: Allergies Allergy/AdvReac Type Severity Reaction Status Date / Time No Known Allergies Allergy Verified 08/09/19 09:54 Home Medications: Home Meds predniSONE [Prednisone] 10 - 40 mg PO DAILY #82 tablet 07/31/19 [Rx] Magnesium 1 tab PO ASDIRECTED 08/09/19 [History] Ondansetron [Zofran] 4 mg PO ASDIRECTED PRN 08/09/19 [History] Past Medical History - Past Health History Medical/Surgical History: Denies Medical/Surgical History HEENT History: Reports: Other (See Below) Other HEENT History: tonsillitis Cardiovascular History: Reports: None Respiratory History: Reports: None Gastrointestinal History: Reports: Inflammatory Bowel Disease, Other (See Below) Other Gastrointestinal History: History of Ulcerative Colitis Genitourinary History: Reports: None DIRECTOR OF COLLECTIONS AND ARCHIVES History: Reports: Other (See Below) Other OB/BYN History: Bacterial vaginitis, yeast infection Musculoskeletal History: Reports: None Neurological History: Reports: None Psychiatric History: Reports: ADHD Endocrine/Metabolic History: Reports: None Insulin Pump Model and Punch Box Tender: N/A Hematologic History: Reports: Other (See Below) Other Hematologic History: Blood Transfussions 2018 Immunologic History: Reports: None Oncologic (Cancer) History: Reports: None Dermatologic History: Reports: None - Infectious Disease History Infectious Disease History: Reports: None - Past Surgical History Head Surgeries/Procedures: Reports: None GI Surgical History: Reports: None, Colonoscopy Female Surgical History: Reports: None Social & Family History - Family History Family Medical History: Noncontributory - Tobacco Use Smoking Status *Q: Unknown Ever Smoked - Caffeine Use Caffeine Use: Reports: None Other Caffeine Use: seldom - Recreational Drug Use Recreational Drug Use: No H&P Review of Systems - Review of Systems: Review Of Systems: See Below General: Reports: Fever, Chills, Weakness HEENT: Reports: No Symptoms Pulmonary: Reports: No Symptoms Cardiovascular: Reports: No Symptoms Gastrointestinal: Reports: Abdominal Pain, Bloody Stool, Diarrhea. Denies: Nausea, Vomiting Genitourinary: Reports: No Symptoms Musculoskeletal: Reports: No Symptoms Skin: Reports: No Symptoms Psychiatric: Reports: No Symptoms Neurological: Reports: No Symptoms Hematologic/Lymphatic: Reports: No Symptoms Immunologic: Reports: No Symptoms Exam - Exam Exam: See Below - Vital Signs Vital Signs: Last Vital Signs Temp 98.8 F 08/09/19 09:55 Pulse 112 H 08/09/19 11:15 Resp 18 08/09/19 09:55 BP 111/69 08/09/19 11:15 Pulse Ox 98 08/09/19 11:15 Weight: 46.72 kg - Exam General: Alert, Oriented, Cooperative HEENT: Conjunctiva Clear, EOMI, Mucosa Moist & [place], Posterior Pharynx Clear, Pupils Equal, Pupils Reactive Lungs: Clear to Auscultation, Normal Respiratory Effort Cardiovascular: Regular Rate, Regular Rhythm GI/Abdominal Exam: Normal Bowel Sounds, Soft, No Distention, Tender Extremities: No Pedal Edema Skin: Warm, Dry, Intact Psychiatric: Alert, Normal Affect, Normal Mood - Patient Data Lab Results Last 24 hrs: Laboratory Results - last 24 hr 08/09/19 08/09/19 08/09/19 Range/Units 10:45 10:45 10:45 WBC 14.63 H (4.0-11.0) K/uL RBC 5.04 (4.30-5.90) M/uL Hgb 12.5 (12.0-16.0) g/dL Hct 39.8 (36.0-46.0) % MCV 79.0 L (80.0-98.0) fL MCH 24.8 L (27.0-32.0) pg MCHC 31.4 (31.0-37.0) g/dL RDW Std Deviation 56.3 (28.0-62.0) fl RDW Coeff of Buck 19 H (11.0-15.0) % Plt Count 584 H (150-400) K/uL MPV 8.70 (7.40-12.00) fL Add Manual Diff YES Neutrophils % (Manual) 31 L (48.0-80.0) % Band Neutrophils % 23 % Lymphocytes % (Manual) 35 (16.0-40.0) % Monocytes % (Manual) 7 (0.0-15.0) % Metamyelocytes % 4 % Nucleated RBC % 0.0 /100WBC Absolute Seg Neuts 4.5 (1.4-5.7) Band Neutrophils # 3.4 Lymphocytes # (Manual) 5.1 H (0.6-2.4) Monocytes # (Manual) 1.0 H (0.0-0.8) Absolute Metamyelocyte 0.6 Nucleated RBCs # 0 K/uL Sodium 135 L (136-145) mmol/L Potassium 3.1 L (3.5-5.1) mmol/L Chloride 101 (98-107) mmol/L Carbon Dioxide 25.5 (21.0-32.0) mmol/L BUN 9 (7.0-18.0) mg/dL Creatinine 0.9 (0.6-1.0) mg/dL Est Cr Clr Drug Dosing 72.93 mL/min Estimated GFR (MDRD) > 60.0 ml/min Glucose 85 (74-106) mg/dL Calcium 9.1 (8.5-10.1) mg/dL Magnesium 1.4 L (1.8-2.4) mg/dL Total Bilirubin 0.4 (0.2-1.0) mg/dL AST 10 L (15-37) IU/L ALT 24 (14-63) IU/L Alkaline Phosphatase 75 (46-116) U/L Total Protein 7.3 (6.4-8.2) g/dL Albumin 2.8 L (3.4-5.0) g/dL Globulin 4.5 H (2.6-4.0) g/dL Albumin/Globulin Ratio 0.6 L (0.9-1.6) Lipase 58 L (73-393) U/L Result Diagrams: 08/09/19 10:45 08/09/19 10:45 Sepsis Event Note - Evaluation Sepsis Screening Result: No Definite Risk - Focused Exam Vital Signs: Vital Signs Temp Pulse Resp BP Pulse Ox 08/09/19 11:15 112 H 111/69 98 08/09/19 09:55 98.8 F 128 H 18 134/75 97 Date Exam was Performed: 08/09/19 Time Exam was Performed: 12:42 Problem List Initiated/Reviewed/Updated: Yes Orders Last 24hrs: Active Orders 24 hr Category Date Time Status Admission Status [Patient Status] [ADT] Stat ADT 08/09/19 12:20 Active Cardiac Monitoring [RC] . DIRECTED Care 08/09/19 12:20 Active HCG QUALITATIVE,URINE [URCHEM] Stat Lab 08/09/19 09:53 Ordered UA W/MICROSCOPIC [URIN] Stat Lab 08/09/19 09:53 Ordered NS + KCl 20mEq/L [Normal Saline with 20 mEq KCl] 1,000 Med 08/09/19 12:30 Active ml IV ASDIRECTED Sodium Chloride 0.9% [Saline Flush] Med 08/09/19 09:52 Active 10 ml FLUSH ASDIRECTED PRN Sodium Chloride 0.9% [Saline Flush] Med 08/09/19 09:52 Active 2.5 ml FLUSH ASDIRECTED PRN Saline Lock Insert [OM.PC] Stat Oth 08/09/19 09:52 Ordered Medication Orders Potassium Chloride/Sodium Chloride (Normal Saline With 20 Meq Kcl) 1,000 mls @ 100 mls/hr IV ASDIRECTED DONNIE Sodium Chloride (Saline Flush) 10 ml FLUSH ASDIRECTED PRN PRN Reason: Keep Vein Open Last Admin: 08/09/19 10:28 Dose: 10 ml Sodium Chloride (Saline Flush) 2.5 ml FLUSH ASDIRECTED PRN PRN Reason: Keep Vein Open Last Admin: 08/09/19 10:28 Dose: 2.5 ml Assessment/Plan Comment:: 1.Admit as observation 2.Code status- Full 3.Vitals per routine 4.I/Os per strict 5.Diet- clears 6.DVT with SCDs due to bleeding 7.Ulcerative colitis flare- treat with IV solumedrol 20 TID, Protonix 40 BID, pain control with Dilaudid 0.5 mg, and prn nausea/vomiting medication. 8.Hypokalemia- replaced in ER, recheck in AM 9. Hypomagnesemia- replaced, will recheck in AM
[2019-08-09] MEDS ORDERED: Magnesium Sulfate/Water 4 GM in Premix Bag 1 BAG IV ONE (12:40)
[2019-08-09] MEDS: methylPREDNISolone Sodium Succinate 40 MG/1 ML SDV IVPUSH SCH ×2 (13:31→21:12)
[2019-08-09] MEDS: HYDROmorphone 2 MG/ML Syringe IVPUSH PRN ×3 (13:35→22:43)
[2019-08-09] MEDS: Pantoprazole 40 MG in Sodium Chloride 0.9% 10 ML IV SCH (21:22)
[2019-08-09] MEDS: Sodium Chloride 0.9% 1,000 ML IV SCH (22:58)
[2019-08-10] MEDS: HYDROmorphone 2 MG/ML Syringe IVPUSH PRN ×5 (03:11→21:46)
[2019-08-10] MEDS: methylPREDNISolone Sodium Succinate 40 MG/1 ML SDV IVPUSH SCH ×3 (04:05→20:05)
[2019-08-10 06:28] LABS: BLOOD UREA NITROGEN,BUN 6 mg/dL (7.0-18.0); CARBON DIOXIDE,CO2 25.1 mmol/L (21.0-32.0); CHLORIDE,CL 103 mmol/L (98-107); GLUCOSE RANDOM 94 mg/dL (74-106); POTASSIUM,K 4.5 mmol/L (3.5-5.1); SODIUM,NA 136 mmol/L (136-145)
[2019-08-10] MEDS: Sodium Chloride 0.9% 1,000 ML IV SCH ×3 (07:29→23:49)
[2019-08-10] MEDS: Pantoprazole 40 MG in Sodium Chloride 0.9% 10 ML IV SCH ×2 (08:50→20:15)
[2019-08-10] MEDS ORDERED: Magnesium Sulfate/Water 2 GM in Premix Bag 1 BAG IV ONE (11:04)
--- NOTE | 2019-08-10 11:08 | PCM.PN ---
- General Info Date of Service: 08/10/19 - Review of Systems Systems Review Comment:: feeling better, one bowel movement last night - Patient Data Vitals - Most Recent: Last Vital Signs Temp 36.6 C 08/10/19 07:40 Pulse 59 L 08/10/19 07:40 Resp 19 08/10/19 07:40 BP 103/59 L 08/10/19 07:40 Pulse Ox 98 08/10/19 07:40 Weight - Most Recent: 47.31 kg I&O - Last 24 Hours: Intake & Output 08/09/19 08/10/19 08/10/19 22:59 06:59 14:59 Intake Total 800 2540 Output Total 10 1900 Balance 790 640 Lab Results Last 24 Hours: Laboratory Results - last 24 hr 08/09/19 08/09/19 08/09/19 Range/Units 10:45 10:45 10:45 WBC 14.63 H (4.0-11.0) K/uL RBC 5.04 (4.30-5.90) M/uL Hgb 12.5 (12.0-16.0) g/dL Hct 39.8 (36.0-46.0) % MCV 79.0 L (80.0-98.0) fL MCH 24.8 L (27.0-32.0) pg MCHC 31.4 (31.0-37.0) g/dL RDW Std Deviation 56.3 (28.0-62.0) fl RDW Coeff of Buck 19 H (11.0-15.0) % Plt Count 584 H (150-400) K/uL MPV 8.70 (7.40-12.00) fL Neut % (Auto) (48.0-80.0) % Lymph % (Auto) (16.0-40.0) % [place] % (Auto) (0.0-15.0) % Eos % (Auto) (0.0-7.0) % Baso % (Auto) (0.0-1.5) % Neut # (Auto) (1.4-5.7) K/uL Lymph # (Auto) (0.6-2.4) K/uL [place] # (Auto) (0.0-0.8) K/uL Eos # (Auto) (0.0-0.7) K/uL Baso # (Auto) (0.0-0.1) K/uL Add Manual Diff YES Neutrophils % (Manual) 31 L (48.0-80.0) % Band Neutrophils % 23 % Lymphocytes % (Manual) 35 (16.0-40.0) % Monocytes % (Manual) 7 (0.0-15.0) % Metamyelocytes % 4 % Nucleated RBC % 0.0 /100WBC Absolute Seg Neuts 4.5 (1.4-5.7) Band Neutrophils # 3.4 Lymphocytes # (Manual) 5.1 H (0.6-2.4) Monocytes # (Manual) 1.0 H (0.0-0.8) Absolute Metamyelocyte 0.6 Nucleated RBCs # 0 K/uL Sodium 135 L (136-145) mmol/L Potassium 3.1 L (3.5-5.1) mmol/L Chloride 101 (98-107) mmol/L Carbon Dioxide 25.5 (21.0-32.0) mmol/L BUN 9 (7.0-18.0) mg/dL Creatinine 0.9 (0.6-1.0) mg/dL Est Cr Clr Drug Dosing 72.93 mL/min Estimated GFR (MDRD) > 60.0 ml/min Glucose 85 (74-106) mg/dL Calcium 9.1 (8.5-10.1) mg/dL Magnesium 1.4 L (1.8-2.4) mg/dL Total Bilirubin 0.4 (0.2-1.0) mg/dL AST 10 L (15-37) IU/L ALT 24 (14-63) IU/L Alkaline Phosphatase 75 (46-116) U/L Total Protein 7.3 (6.4-8.2) g/dL Albumin 2.8 L (3.4-5.0) g/dL Globulin 4.5 H (2.6-4.0) g/dL Albumin/Globulin Ratio 0.6 L (0.9-1.6) Lipase 58 L (73-393) U/L Urine Color Urine Appearance Urine pH (5.0-8.0) Ur Specific [place] (1.001-1.035) Urine Protein (NEGATIVE) mg/dL Urine Glucose (UA) (NEGATIVE) mg/dL Urine Ketones (NEGATIVE) mg/dL Urine Occult Blood (NEGATIVE) Urine Nitrite (NEGATIVE) Urine Bilirubin (NEGATIVE) Urine Urobilinogen (<2.0) EU/dL Ur Leukocyte Esterase (NEGATIVE) Urine RBC (0-2/HPF) Urine WBC (0-5/HPF) Ur Epithelial Cells (NONE-FEW) Urine Bacteria (NEGATIVE) Urine HCG, Qual (NEGATIVE) 08/09/19 08/09/19 08/10/19 Range/Units 13:06 13:06 06:10 WBC 8.13 (4.0-11.0) K/uL RBC 4.18 L (4.30-5.90) M/uL Hgb 10.3 L (12.0-16.0) g/dL Hct 32.9 L (36.0-46.0) % MCV 78.7 L (80.0-98.0) fL MCH 24.6 L (27.0-32.0) pg MCHC 31.3 (31.0-37.0) g/dL RDW Std Deviation 57.2 (28.0-62.0) fl RDW Coeff of Buck 20 H (11.0-15.0) % Plt Count 445 H (150-400) K/uL MPV 8.50 (7.40-12.00) fL Neut % (Auto) 78.0 (48.0-80.0) % Lymph % (Auto) 15.6 L (16.0-40.0) % [place] % (Auto) 6.4 (0.0-15.0) % Eos % (Auto) 0.0 (0.0-7.0) % Baso % (Auto) 0.0 (0.0-1.5) % Neut # (Auto) 6.3 H (1.4-5.7) K/uL Lymph # (Auto) 1.3 (0.6-2.4) K/uL [place] # (Auto) 0.5 (0.0-0.8) K/uL Eos # (Auto) 0.0 (0.0-0.7) K/uL Baso # (Auto) 0.0 (0.0-0.1) K/uL Add Manual Diff Neutrophils % (Manual) (48.0-80.0) % Band Neutrophils % % Lymphocytes % (Manual) (16.0-40.0) % Monocytes % (Manual) (0.0-15.0) % Metamyelocytes % % Nucleated RBC % 0.0 /100WBC Absolute Seg Neuts (1.4-5.7) Band Neutrophils # Lymphocytes # (Manual) (0.6-2.4) Monocytes # (Manual) (0.0-0.8) Absolute Metamyelocyte Nucleated RBCs # 0 K/uL Sodium (136-145) mmol/L Potassium (3.5-5.1) mmol/L Chloride (98-107) mmol/L Carbon Dioxide (21.0-32.0) mmol/L BUN (7.0-18.0) mg/dL Creatinine (0.6-1.0) mg/dL Est Cr Clr Drug Dosing mL/min Estimated GFR (MDRD) ml/min Glucose (74-106) mg/dL Calcium (8.5-10.1) mg/dL Magnesium (1.8-2.4) mg/dL Total Bilirubin (0.2-1.0) mg/dL AST (15-37) IU/L ALT (14-63) IU/L Alkaline Phosphatase (46-116) U/L Total Protein (6.4-8.2) g/dL Albumin (3.4-5.0) g/dL Globulin (2.6-4.0) g/dL Albumin/Globulin Ratio (0.9-1.6) Lipase (73-393) U/L Urine Color YELLOW Urine Appearance CLEAR Urine pH 8.0 (5.0-8.0) Ur Specific [place] 1.020 (1.001-1.035) Urine Protein NEGATIVE (NEGATIVE) mg/dL Urine Glucose (UA) NEGATIVE (NEGATIVE) mg/dL Urine Ketones NEGATIVE (NEGATIVE) mg/dL Urine Occult Blood NEGATIVE (NEGATIVE) Urine Nitrite NEGATIVE (NEGATIVE) Urine Bilirubin NEGATIVE (NEGATIVE) Urine Urobilinogen 0.2 (<2.0) EU/dL Ur Leukocyte Esterase NEGATIVE (NEGATIVE) Urine RBC 0-1 (0-2/HPF) Urine WBC 0-1 (0-5/HPF) Ur Epithelial Cells RARE (NONE-FEW) Urine Bacteria RARE (NEGATIVE) Urine HCG, Qual NEGATIVE (NEGATIVE) 08/10/19 Range/Units 06:10 WBC (4.0-11.0) K/uL RBC (4.30-5.90) M/uL Hgb (12.0-16.0) g/dL Hct (36.0-46.0) % MCV (80.0-98.0) fL MCH (27.0-32.0) pg MCHC (31.0-37.0) g/dL RDW Std Deviation (28.0-62.0) fl RDW Coeff of Buck (11.0-15.0) % Plt Count (150-400) K/uL MPV (7.40-12.00) fL Neut % (Auto) (48.0-80.0) % Lymph % (Auto) (16.0-40.0) % [place] % (Auto) (0.0-15.0) % Eos % (Auto) (0.0-7.0) % Baso % (Auto) (0.0-1.5) % Neut # (Auto) (1.4-5.7) K/uL Lymph # (Auto) (0.6-2.4) K/uL [place] # (Auto) (0.0-0.8) K/uL Eos # (Auto) (0.0-0.7) K/uL Baso # (Auto) (0.0-0.1) K/uL Add Manual Diff Neutrophils % (Manual) (48.0-80.0) % Band Neutrophils % % Lymphocytes % (Manual) (16.0-40.0) % Monocytes % (Manual) (0.0-15.0) % Metamyelocytes % % Nucleated RBC % /100WBC Absolute Seg Neuts (1.4-5.7) Band Neutrophils # Lymphocytes # (Manual) (0.6-2.4) Monocytes # (Manual) (0.0-0.8) Absolute Metamyelocyte Nucleated RBCs # K/uL Sodium 136 (136-145) mmol/L Potassium 4.5 (3.5-5.1) mmol/L Chloride 103 (98-107) mmol/L Carbon Dioxide 25.1 (21.0-32.0) mmol/L BUN 6 L (7.0-18.0) mg/dL Creatinine 0.5 L (0.6-1.0) mg/dL Est Cr Clr Drug Dosing 132.93 mL/min Estimated GFR (MDRD) > 60.0 ml/min Glucose 94 (74-106) mg/dL Calcium 8.4 L (8.5-10.1) mg/dL Magnesium 1.7 L (1.8-2.4) mg/dL Total Bilirubin (0.2-1.0) mg/dL AST (15-37) IU/L ALT (14-63) IU/L Alkaline Phosphatase (46-116) U/L Total Protein (6.4-8.2) g/dL Albumin (3.4-5.0) g/dL Globulin (2.6-4.0) g/dL Albumin/Globulin Ratio (0.9-1.6) Lipase (73-393) U/L Urine Color Urine Appearance Urine pH (5.0-8.0) Ur Specific [place] (1.001-1.035) Urine Protein (NEGATIVE) mg/dL Urine Glucose (UA) (NEGATIVE) mg/dL Urine Ketones (NEGATIVE) mg/dL Urine Occult Blood (NEGATIVE) Urine Nitrite (NEGATIVE) Urine Bilirubin (NEGATIVE) Urine Urobilinogen (<2.0) EU/dL Ur Leukocyte Esterase (NEGATIVE) Urine RBC (0-2/HPF) Urine WBC (0-5/HPF) Ur Epithelial Cells (NONE-FEW) Urine Bacteria (NEGATIVE) Urine HCG, Qual (NEGATIVE) Med Orders - Current: Current Medications Hydromorphone HCl (Dilaudid) 0.5 mg IVPUSH Q4H PRN PRN Reason: Pain Last Admin: 08/10/19 07:34 Dose: 0.5 mg Pantoprazole Sodium 40 mg/ (Sodium Chloride) 10 mls @ 300 mls/hr IV BID [facility] Last Admin: 08/10/19 08:50 Dose: 300 mls/hr Sodium Chloride (Normal Saline) 1,000 mls @ 125 mls/hr IV ASDIRECTED [facility] Last Admin: 08/10/19 07:29 Dose: 125 mls/hr Methylprednisolone Sodium Succinate (Solu-Medrol) 20 mg IVPUSH Q8H [facility] [place] Last Admin: 08/10/19 04:05 Dose: 20 mg Ondansetron HCl (Zofran) 4 mg IVPUSH Q4H PRN PRN Reason: Nausea/Vomiting Sodium Chloride (Saline Flush) 10 ml FLUSH ASDIRECTED PRN PRN Reason: Keep Vein Open Last Admin: 08/09/19 10:28 Dose: 10 ml Sodium Chloride (Saline Flush) 2.5 ml FLUSH ASDIRECTED PRN PRN Reason: Keep Vein Open Last Admin: 08/09/19 10:28 Dose: 2.5 ml Discontinued Medications Sodium Chloride (Normal Saline) 1,000 mls @ 999 mls/hr IV BOLUS ONE Stop: 08/09/19 10:52 Last Admin: 08/09/19 10:28 Dose: 999 mls/hr Potassium Chloride/Sodium Chloride (Normal Saline With 20 Meq Kcl) 1,000 mls @ 100 mls/hr IV ASDIRECTED [facility] Last Admin: 08/09/19 12:34 Dose: 100 mls/hr Magnesium Sulfate 4 gm/ Premix 100 mls @ 50 mls/hr IV ONETIME ONE Stop: 08/09/19 14:39 Last Admin: 08/09/19 14:00 Dose: 50 mls/hr Morphine Sulfate (Morphine) 4 mg IVPUSH ONETIME ONE Stop: 08/09/19 10:27 Last Admin: 08/09/19 10:30 Dose: 4 mg Ondansetron HCl (Zofran) 4 mg IVPUSH ONETIME ONE Stop: 08/09/19 09:53 Last Admin: 08/09/19 10:28 Dose: 4 mg - Exam General: Alert, Oriented Neck: Supple Lungs: Clear to Auscultation, Normal Respiratory Effort Cardiovascular: Regular Rate, Regular Rhythm GI/Abdominal Exam: Normal Bowel Sounds, Soft, Non-Tender, No Distention Extremities: No Pedal Edema Skin: Warm, Dry, Intact Sepsis Event Note - Evaluation Sepsis Screening Result: No Definite Risk - Focused Exam Vital Signs: Vital Signs Temp Pulse Resp BP Pulse Ox 08/10/19 07:40 36.6 C 59 L 19 103/59 L 98 08/10/19 04:00 36.5 C 60 14 103/53 L 99 08/10/19 00:50 36.2 C 65 14 101/54 L 99 Date Exam was Performed: 08/10/19 Time Exam was Performed: 11:04 - Problem List Review Problem List Initiated/Reviewed/Updated: Yes - My Orders Last 24 Hours: My Active Orders 08/10/19 11:04 Magnesium Sulfate/Water [Magnesium Sulfate in Water Premix] 2 gm Premix Bag 1 bag IV ONETIME 08/10/19 Breakfast Advance Diet Instructions [DIET] - Plan Plan:: 19 yo female admitted with ulcerative colitis flare. We will continue IV solumedrol. We will advance diet as tolerated and wean off IV Dilaudid. Anticipate discharge home tomorrow.
[2019-08-11] MEDS: HYDROmorphone 2 MG/ML Syringe IVPUSH PRN ×2 (04:00→08:15)
[2019-08-11] MEDS: methylPREDNISolone Sodium Succinate 40 MG/1 ML SDV IVPUSH SCH ×3 (04:03→23:33)
[2019-08-11 06:32] LABS: BLOOD UREA NITROGEN,BUN 5 mg/dL (7.0-18.0); CARBON DIOXIDE,CO2 25.9 mmol/L (21.0-32.0); CHLORIDE,CL 104 mmol/L (98-107); GLUCOSE RANDOM 109 mg/dL (74-106); POTASSIUM,K 4.1 mmol/L (3.5-5.1); SODIUM,NA 136 mmol/L (136-145)
[2019-08-11] MEDS: Sodium Chloride 0.9% 1,000 ML IV SCH ×2 (07:35→16:43)
[2019-08-11] MEDS ORDERED: Magnesium Sulfate/Water 2 GM in Premix Bag 1 BAG IV ONE (08:05)
[2019-08-11] MEDS: Pantoprazole 40 MG in Sodium Chloride 0.9% 10 ML IV SCH ×2 (08:15→21:01)
[2019-08-11] MEDS: oxyCODONE 5 MG Tab PO PRN ×4 (09:18→23:33)
--- NOTE | 2019-08-11 09:18 | PCM.PN ---
- General Info Date of Service: 08/11/19 Admission Dx/Problem (Free Text): Admission Diagnosis/Problem Admission Diagnosis/Problem Abdominal pain Subjective Update: Complains of abdominal pain with bloody stool this morning. reports pain is when she has BM and then intermittently. Nausea, but is tolerating soft to regular diet. Functional Status: Reports: Tolerating Diet, Ambulating, Urinating - Review of Systems Pulmonary: Reports: No Symptoms. Denies: Shortness of Breath Cardiovascular: Reports: No Symptoms. Denies: Chest Pain Gastrointestinal: Reports: Abdominal Pain, Diarrhea (blood stools), Nausea. Denies: Vomiting Musculoskeletal: Reports: No Symptoms Skin: Reports: No Symptoms Neurological: Reports: No Symptoms Psychiatric: Reports: No Symptoms - Patient Data Vitals - Most Recent: Last Vital Signs Temp 98.2 F 08/11/19 08:00 Pulse 61 08/11/19 08:00 Resp 12 08/11/19 08:00 BP 122/73 08/11/19 08:00 Pulse Ox 99 08/11/19 08:00 Weight - Most Recent: 47.31 kg I&O - Last 24 Hours: Intake & Output 08/10/19 08/11/19 08/11/19 22:59 06:59 14:59 Intake Total 2340 2333 50 Output Total 1300 1250 Balance 1040 1083 50 Lab Results Last 24 Hours: Laboratory Results - last 24 hr 08/11/19 08/11/19 Range/Units 06:10 06:10 WBC 15.40 H (4.0-11.0) K/uL RBC 4.27 L (4.30-5.90) M/uL Hgb 10.5 L (12.0-16.0) g/dL Hct 33.7 L (36.0-46.0) % MCV 78.9 L (80.0-98.0) fL MCH 24.6 L (27.0-32.0) pg MCHC 31.2 (31.0-37.0) g/dL RDW Std Deviation 56.7 (28.0-62.0) fl RDW Coeff of [place] 19 H (11.0-15.0) % Plt Count 512 H (150-400) K/uL MPV 8.80 (7.40-12.00) fL Neut % (Auto) 84.4 H (48.0-80.0) % Lymph % (Auto) 8.7 L (16.0-40.0) % [place] % (Auto) 6.8 (0.0-15.0) % Eos % (Auto) 0.0 (0.0-7.0) % Baso % (Auto) 0.1 (0.0-1.5) % Neut # (Auto) 13.0 H (1.4-5.7) K/uL Lymph # (Auto) 1.3 (0.6-2.4) K/uL [place] # (Auto) 1.1 H (0.0-0.8) K/uL Eos # (Auto) 0.0 (0.0-0.7) K/uL Baso # (Auto) 0.0 (0.0-0.1) K/uL Nucleated RBC % 0.0 /100WBC Nucleated RBCs # 0 K/uL Sodium 136 (136-145) mmol/L Potassium 4.1 (3.5-5.1) mmol/L Chloride 104 (98-107) mmol/L Carbon Dioxide 25.9 (21.0-32.0) mmol/L BUN 5 L (7.0-18.0) mg/dL Creatinine 0.7 (0.6-1.0) mg/dL Est Cr Clr Drug Dosing 94.95 mL/min Estimated GFR (MDRD) > 60.0 ml/min Glucose 109 H (74-106) mg/dL Calcium 8.5 (8.5-10.1) mg/dL Magnesium 1.6 L (1.8-2.4) mg/dL Med Orders - Current: Current Medications Hydromorphone HCl (Dilaudid) 0.5 mg IVPUSH Q4H PRN PRN Reason: Pain Last Admin: 08/11/19 08:15 Dose: 0.5 mg Pantoprazole Sodium 40 mg/ (Sodium Chloride) 10 mls @ 300 mls/hr IV BID [facility] Last Admin: 08/11/19 08:15 Dose: 300 mls/hr Sodium Chloride (Normal Saline) 1,000 mls @ 125 mls/hr IV ASDIRECTED [facility] Last Admin: 08/11/19 07:35 Dose: 125 mls/hr Methylprednisolone Sodium Succinate (Solu-Medrol) 20 mg IVPUSH Q8H [facility] Last Admin: 08/11/19 04:03 Dose: 20 mg Ondansetron HCl (Zofran) 4 mg IVPUSH Q4H PRN PRN Reason: Nausea/Vomiting Oxycodone HCl (Oxycodone) 5 mg PO Q4H PRN PRN Reason: Pain Sodium Chloride (Saline Flush) 10 ml FLUSH ASDIRECTED PRN PRN Reason: Keep Vein Open Last Admin: 08/09/19 10:28 Dose: 10 ml Sodium Chloride (Saline Flush) 2.5 ml FLUSH ASDIRECTED PRN PRN Reason: Keep Vein Open Last Admin: 08/09/19 10:28 Dose: 2.5 ml Discontinued Medications Sodium Chloride (Normal Saline) 1,000 mls @ 999 mls/hr IV BOLUS ONE Stop: 08/09/19 10:52 Last Admin: 08/09/19 10:28 Dose: 999 mls/hr Potassium Chloride/Sodium Chloride (Normal Saline With 20 Meq Kcl) 1,000 mls @ 100 mls/hr IV ASDIRECTED [facility] Last Admin: 08/09/19 12:34 Dose: 100 mls/hr Magnesium Sulfate 4 gm/ Premix 100 mls @ 50 mls/hr IV ONETIME ONE Stop: 08/09/19 14:39 Last Admin: 08/09/19 14:00 Dose: 50 mls/hr Magnesium Sulfate 2 gm/ Premix 50 mls @ 50 mls/hr IV ONETIME ONE Stop: 08/10/19 12:03 Last Admin: 08/10/19 11:29 Dose: 50 mls/hr Magnesium Sulfate 2 gm/ Premix 50 mls @ 50 mls/hr IV ONETIME ONE Stop: 08/11/19 09:04 Last Admin: 08/11/19 08:26 Dose: 50 mls/hr Morphine Sulfate (Morphine) 4 mg IVPUSH ONETIME ONE Stop: 08/09/19 10:27 Last Admin: 08/09/19 10:30 Dose: 4 mg Ondansetron HCl (Zofran) 4 mg IVPUSH ONETIME ONE Stop: 08/09/19 09:53 Last Admin: 08/09/19 10:28 Dose: 4 mg - Exam General: Alert, Oriented, Cooperative, No Acute Distress Lungs: Clear to Auscultation, Normal Respiratory Effort Cardiovascular: Regular Rate, Regular Rhythm GI/Abdominal Exam: Normal Bowel Sounds, Soft, Tender (diffusely) Extremities: Normal Inspection, Normal Range of Motion, Non-Tender, No Pedal Edema Wound/Incisions: Healing Well Neurological: No New Focal Deficit Psy/Mental Status: Alert, Normal Affect, Normal Mood Sepsis Event Note - Evaluation Sepsis Screening Result: No Definite Risk - Focused Exam Vital Signs: Vital Signs Temp Pulse Resp BP Pulse Ox 08/11/19 08:00 98.2 F 61 12 122/73 99 08/11/19 04:00 97.7 F 60 16 119/56 L 100 08/11/19 00:00 97.7 F 60 16 111/54 L 100 Date Exam was Performed: 08/11/19 Time Exam was Performed: 11:21 - Problem List & Annotations (1) Abdominal pain SNOMED Code(s): 99329580 Code(s): R10.9 - UNSPECIFIED ABDOMINAL PAIN Status: Acute Current Visit: Yes Qualifiers: Abdominal location: generalized Qualified Code(s): R10.84 - Generalized abdominal pain (2) Anemia SNOMED Code(s): 266807815 Code(s): D64.9 - ANEMIA, UNSPECIFIED Status: Acute Current Visit: No (3) History of ulcerative colitis SNOMED Code(s): 649836001 Code(s): Z87.19 - PERSONAL HISTORY OF OTHER DISEASES OF THE DIGESTIVE SYSTEM Status: Acute Current Visit: No (4) Hypokalemia SNOMED Code(s): 63014306 Code(s): E87.6 - HYPOKALEMIA Status: Acute Current Visit: No (5) Hx of Clostridium difficile infection SNOMED Code(s): 663451406, 655099685 Code(s): Z86.19 - PERSONAL HISTORY OF OTHER INFECTIOUS AND PARASITIC DISEASES Status: Chronic Current Visit: No - Problem List Review Problem List Initiated/Reviewed/Updated: Yes - My Orders Last 24 Hours: My Active Orders 08/11/19 09:07 oxyCODONE 5 mg PO Q4H PRN - Plan Plan:: 19 yo female admitted with abdominal pain 1. Abdominal pain - Consider UC Flare Solumedrol started - Spoke with GI specialist video production coordinator, Dr Meyers this morning. 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 He recommended stopping Solumedrol for now. Test for Cdiff and start Vancomycin 250 QID PO and Flagyl 500 mg TID. He is concerned with continued steroids there has been no significant change and is this related to cdiff. I spoke with Keysha about this, she does not want antibiotics until the cdiff test is done and then she wants me to talk with Dr Staton from [facility] to verify this is ok. - Will stop Solu-medrol for now - Continue IVFs - Monitor electrolytes and replace as needed - Stop IV dilaudid. Start Oxycodone and monitor - Tolerating regular diet, will place pasting machine operator consult to help with diet recommendations. VTE prophylaxis: SCDs and ambulation Dispo: Make impatent due to need for continued monitoring and IVF and antibiotics administration.
[2019-08-11] MEDS: Ondansetron 4 MG/2 ML SDV IVPUSH PRN (11:12)
[2019-08-11] MEDS ORDERED: Vancomycin 125 MG Cap PO SCH (12:00)
[2019-08-11] MEDS ORDERED: metroNIDAZOLE/Normal Saline 500 MG in Premix Bag 1 BAG IV SCH (12:00)
[2019-08-12] MEDS: Sodium Chloride 0.9% 1,000 ML IV SCH ×4 (00:49→23:28)
[2019-08-12] MEDS: oxyCODONE 5 MG Tab PO PRN ×5 (04:21→22:23)
[2019-08-12 06:28] LABS: BLOOD UREA NITROGEN,BUN 10 mg/dL (7.0-18.0); CARBON DIOXIDE,CO2 27.8 mmol/L (21.0-32.0); CHLORIDE,CL 103 mmol/L (98-107); GLUCOSE RANDOM 111 mg/dL (74-106); POTASSIUM,K 4.2 mmol/L (3.5-5.1); SODIUM,NA 137 mmol/L (136-145)
[2019-08-12] MEDS: methylPREDNISolone Sodium Succinate 40 MG/1 ML SDV IVPUSH SCH ×3 (07:12→22:29)
[2019-08-12] MEDS ORDERED: Magnesium Sulfate/Water 2 GM in Premix Bag 1 BAG IV ONE (07:50)
[2019-08-12] MEDS: Pantoprazole 40 MG in Sodium Chloride 0.9% 10 ML IV SCH ×2 (08:18→20:39)
[2019-08-12] MEDS: Ondansetron 4 MG/2 ML SDV IVPUSH PRN (10:28)
--- NOTE | 2019-08-12 14:21 | PCM.PN ---
- General Info Date of Service: 08/12/19 Admission Dx/Problem (Free Text): Admission Diagnosis/Problem Admission Diagnosis/Problem Abdominal pain Subjective Update: Attempted to discharge today, patient reports she is feeling more nauseated and vomited. No emesis noted in waste basket where she said she had emesis. No chest pain or SOB. Oxycodone is helping pain. She is nervous about going home and would like to stay one more night to insure she is improved tomorrow. Functional Status: Reports: Pain Controlled, Tolerating Diet, Ambulating, Urinating - Review of Systems Pulmonary: Reports: No Symptoms. Denies: Shortness of Breath Cardiovascular: Reports: No Symptoms. Denies: Chest Pain Gastrointestinal: Reports: Abdominal Pain, Nausea, Vomiting Genitourinary: Reports: No Symptoms. Denies: Dysuria, Frequency, Burning Skin: Reports: No Symptoms Neurological: Reports: No Symptoms Psychiatric: Reports: No Symptoms - Patient Data Vitals - Most Recent: Last Vital Signs Temp 98 F 08/12/19 12:20 Pulse 96 08/12/19 12:20 Resp 15 08/12/19 12:20 BP 113/60 08/12/19 12:20 Pulse Ox 99 08/12/19 12:20 Weight - Most Recent: 47.31 kg I&O - Last 24 Hours: Intake & Output 08/11/19 08/12/19 08/12/19 22:59 06:59 14:59 Intake Total 2330 300 1050 Output Total 1650 2350 Balance 680 -2050 1050 Lab Results Last 24 Hours: Laboratory Results - last 24 hr 08/12/19 08/12/19 Range/Units 05:46 05:46 WBC 11.82 H (4.0-11.0) K/uL RBC 4.11 L (4.30-5.90) M/uL Hgb 10.2 L (12.0-16.0) g/dL Hct 32.9 L (36.0-46.0) % MCV 80.0 (80.0-98.0) fL MCH 24.8 L (27.0-32.0) pg MCHC 31.0 (31.0-37.0) g/dL RDW Std Deviation 58.2 (28.0-62.0) fl RDW Coeff of Buck 20 H (11.0-15.0) % Plt Count 510 H (150-400) K/uL MPV 8.80 (7.40-12.00) fL Neut % (Auto) 75.8 (48.0-80.0) % Lymph % (Auto) 12.4 L (16.0-40.0) % [place] % (Auto) 11.6 (0.0-15.0) % Eos % (Auto) 0.0 (0.0-7.0) % Baso % (Auto) 0.2 (0.0-1.5) % Neut # (Auto) 9.0 H (1.4-5.7) K/uL Lymph # (Auto) 1.5 (0.6-2.4) K/uL [place] # (Auto) 1.4 H (0.0-0.8) K/uL Eos # (Auto) 0.0 (0.0-0.7) K/uL Baso # (Auto) 0.0 (0.0-0.1) K/uL Nucleated RBC % 0.0 /100WBC Nucleated RBCs # 0 K/uL Sodium 137 (136-145) mmol/L Potassium 4.2 (3.5-5.1) mmol/L Chloride 103 (98-107) mmol/L Carbon Dioxide 27.8 (21.0-32.0) mmol/L BUN 10 (7.0-18.0) mg/dL Creatinine 0.7 (0.6-1.0) mg/dL Est Cr Clr Drug Dosing 94.95 mL/min Estimated GFR (MDRD) > 60.0 ml/min Glucose 111 H (74-106) mg/dL Calcium 8.4 L (8.5-10.1) mg/dL Magnesium 1.5 L (1.8-2.4) mg/dL Rohit Results Last 24 Hours: Microbiology 08/11/19 14:18 C. difficile Antigen & Toxins A,B - Final Stool / Feces Med Orders - Current: Current Medications Pantoprazole Sodium 40 mg/ (Sodium Chloride) 10 mls @ 300 mls/hr IV BID [facility] Last Admin: 08/12/19 08:18 Dose: 300 mls/hr Sodium Chloride (Normal Saline) 1,000 mls @ 125 mls/hr IV ASDIRECTED [facility] Last Admin: 08/12/19 08:17 Dose: 125 mls/hr Methylprednisolone Sodium Succinate (Solu-Medrol) 20 mg IVPUSH Q8H [facility] Last Admin: 08/12/19 07:12 Dose: 20 mg Ondansetron HCl (Zofran) 4 mg IVPUSH Q4H PRN PRN Reason: Nausea/Vomiting Last Admin: 08/12/19 10:28 Dose: 4 mg Oxycodone HCl (Oxycodone) 5 mg PO Q4H PRN PRN Reason: Pain Last Admin: 08/12/19 12:26 Dose: 5 mg Sodium Chloride (Saline Flush) 10 ml FLUSH ASDIRECTED PRN PRN Reason: Keep Vein Open Last Admin: 08/09/19 10:28 Dose: 10 ml Sodium Chloride (Saline Flush) 2.5 ml FLUSH ASDIRECTED PRN PRN Reason: Keep Vein Open Last Admin: 08/09/19 10:28 Dose: 2.5 ml Discontinued Medications Hydromorphone HCl (Dilaudid) 0.5 mg IVPUSH Q4H PRN PRN Reason: Pain Last Admin: 08/11/19 08:15 Dose: 0.5 mg Sodium Chloride (Normal Saline) 1,000 mls @ 999 mls/hr IV BOLUS ONE Stop: 08/09/19 10:52 Last Admin: 08/09/19 10:28 Dose: 999 mls/hr Potassium Chloride/Sodium Chloride (Normal Saline With 20 Meq Kcl) 1,000 mls @ 100 mls/hr IV ASDIRECTED [facility] Last Admin: 08/09/19 12:34 Dose: 100 mls/hr Magnesium Sulfate 4 gm/ Premix 100 mls @ 50 mls/hr IV ONETIME ONE Stop: 08/09/19 14:39 Last Admin: 08/09/19 14:00 Dose: 50 mls/hr Magnesium Sulfate 2 gm/ Premix 50 mls @ 50 mls/hr IV ONETIME ONE Stop: 08/10/19 12:03 Last Admin: 08/10/19 11:29 Dose: 50 mls/hr Magnesium Sulfate 2 gm/ Premix 50 mls @ 50 mls/hr IV ONETIME ONE Stop: 08/11/19 09:04 Last Admin: 08/11/19 08:26 Dose: 50 mls/hr Metronidazole 500 mg/ Premix 100 mls @ 100 mls/hr IV QID [facility] [place] Last Admin: 08/11/19 11:19 Dose: Not Given Magnesium Sulfate 2 gm/ Premix 50 mls @ 50 mls/hr IV ONETIME ONE Stop: 08/12/19 08:49 Last Admin: 08/12/19 08:23 Dose: 50 mls/hr Methylprednisolone Sodium Succinate (Solu-Medrol) 20 mg IVPUSH Q8H [facility] [place] Last Admin: 08/11/19 04:03 Dose: 20 mg Morphine Sulfate (Morphine) 4 mg IVPUSH ONETIME ONE Stop: 08/09/19 10:27 Last Admin: 08/09/19 10:30 Dose: 4 mg Ondansetron HCl (Zofran) 4 mg IVPUSH ONETIME ONE Stop: 08/09/19 09:53 Last Admin: 08/09/19 10:28 Dose: 4 mg Vancomycin HCl (Vancomycin) 250 mg PO QID [facility] [place] Last Admin: 08/11/19 11:19 Dose: Not Given - Exam General: Alert, Oriented, Cooperative, No Acute Distress Lungs: Clear to Auscultation, Normal Respiratory Effort Cardiovascular: Regular Rate, Regular Rhythm GI/Abdominal Exam: Normal Bowel Sounds, Soft, Tender (throughout) Extremities: Normal Inspection, Normal Range of Motion, Non-Tender, No Pedal Edema Neurological: No New Focal Deficit Psy/Mental Status: Alert, Normal Affect, Normal Mood Sepsis Event Note - Evaluation Sepsis Screening Result: No Definite Risk - Focused Exam Vital Signs: Vital Signs Temp Pulse Resp BP Pulse Ox 08/12/19 12:20 98 F 96 15 113/60 99 08/12/19 08:14 99.3 F 50 L 14 129/74 100 08/12/19 04:00 97.8 F 58 L 16 129/59 L 99 Date Exam was Performed: 08/12/19 Time Exam was Performed: 14:17 - Problem List & Annotations (1) Abdominal pain SNOMED Code(s): 91140036 Code(s): R10.9 - UNSPECIFIED ABDOMINAL PAIN Status: Acute Current Visit: Yes Qualifiers: Abdominal location: generalized Qualified Code(s): R10.84 - Generalized abdominal pain (2) Anemia SNOMED Code(s): 506281597 Code(s): D64.9 - ANEMIA, UNSPECIFIED Status: Acute Current Visit: No (3) History of ulcerative colitis SNOMED Code(s): 398003958 Code(s): Z87.19 - PERSONAL HISTORY OF OTHER DISEASES OF THE DIGESTIVE SYSTEM Status: Acute Current Visit: No (4) Hypokalemia SNOMED Code(s): 93891790 Code(s): E87.6 - HYPOKALEMIA Status: Acute Current Visit: No (5) Hx of Clostridium difficile infection SNOMED Code(s): 571835392, 038275948 Code(s): Z86.19 - PERSONAL HISTORY OF OTHER INFECTIOUS AND PARASITIC DISEASES Status: Chronic Current Visit: No - Problem List Review Problem List Initiated/Reviewed/Updated: Yes - My Orders Last 24 Hours: My Active Orders 08/11/19 14:30 Consult to Advisory Application Developer [CONS] Routine 08/11/19 15:30 methylPREDNISolone Sod Succ [Solu-MEDROL] 20 mg IVPUSH Q8H - Plan Plan:: 19 yo female admitted with abdominal pain 1. Abdominal pain- UC - Cdiff negative. - Solu-medrol restarted - Continue IVFs - Monitor electrolytes and replace as needed - Continue Oxycodone and monitor - Tolerating regular diet, will place emergency department rn consult to help with UC diet recommendations. - Having 1-2 stools per shift. VTE prophylaxis: SCDs and ambulation Dispo: likely home in am.
[2019-08-13] MEDS: oxyCODONE 5 MG Tab PO PRN ×5 (04:24→21:55)
[2019-08-13 06:28] LABS: BLOOD UREA NITROGEN,BUN 9 mg/dL (7.0-18.0); CARBON DIOXIDE,CO2 26.7 mmol/L (21.0-32.0); CHLORIDE,CL 103 mmol/L (98-107); GLUCOSE RANDOM 109 mg/dL (74-106); POTASSIUM,K 4.3 mmol/L (3.5-5.1); SODIUM,NA 137 mmol/L (136-145)
[2019-08-13] MEDS: methylPREDNISolone Sodium Succinate 40 MG/1 ML SDV IVPUSH SCH ×3 (06:33→23:28)
[2019-08-13] MEDS: Sodium Chloride 0.9% 1,000 ML IV SCH ×2 (07:53→17:55)
[2019-08-13] MEDS ORDERED: Magnesium Sulfate/Water 4 GM in Premix Bag 1 BAG IV ONE (07:56)
[2019-08-13] MEDS: Pantoprazole 40 MG in Sodium Chloride 0.9% 10 ML IV SCH ×2 (08:37→21:25)
--- NOTE | 2019-08-13 10:22 | PCM.PN ---
- General Info Date of Service: 08/13/19 Admission Dx/Problem (Free Text): Admission Diagnosis/Problem Admission Diagnosis/Problem Abdominal pain Subjective Update: Continues to have pain to abdomen. Reports it has changed and now is more on her R side and up to her R flank. No chest pain or SOB. Eating regular diet well. Functional Status: Reports: Pain Controlled, Tolerating Diet, Ambulating - Review of Systems HEENT: Reports: No Symptoms. Denies: Headaches, Rhinitis, Visual Changes Pulmonary: Reports: No Symptoms. Denies: Shortness of Breath Cardiovascular: Reports: No Symptoms. Denies: Chest Pain, Dyspnea on Exertion Gastrointestinal: Reports: Abdominal Pain, Diarrhea (had 1 stool overnight and large loose stool this morning). Denies: Nausea, Vomiting Genitourinary: Reports: No Symptoms. Denies: Dysuria, Frequency Musculoskeletal: Reports: No Symptoms Neurological: Reports: No Symptoms Psychiatric: Reports: No Symptoms - Patient Data Vitals - Most Recent: Last Vital Signs Temp 98.2 F 08/13/19 08:00 Pulse 54 L 08/13/19 08:00 Resp 16 08/13/19 08:00 BP 125/60 08/13/19 08:00 Pulse Ox 100 08/13/19 08:00 Weight - Most Recent: 47.31 kg I&O - Last 24 Hours: Intake & Output 08/12/19 08/13/19 08/13/19 22:59 06:59 14:59 Intake Total 3943 1410 1000 Output Total 3350 2500 Balance 593 -1090 1000 Lab Results Last 24 Hours: Laboratory Results - last 24 hr 08/13/19 08/13/19 08/13/19 Range/Units 05:49 05:49 09:45 WBC 12.01 H (4.0-11.0) K/uL RBC 4.14 L (4.30-5.90) M/uL Hgb 10.1 L (12.0-16.0) g/dL Hct 33.0 L (36.0-46.0) % MCV 79.7 L (80.0-98.0) fL MCH 24.4 L (27.0-32.0) pg MCHC 30.6 L (31.0-37.0) g/dL RDW Std Deviation 59.2 (28.0-62.0) fl RDW Coeff of Buck 20 H (11.0-15.0) % Plt Count 518 H (150-400) K/uL MPV 8.80 (7.40-12.00) fL Neut % (Auto) 67.6 (48.0-80.0) % Lymph % (Auto) 19.0 (16.0-40.0) % [place] % (Auto) 13.2 (0.0-15.0) % Eos % (Auto) 0.1 (0.0-7.0) % Baso % (Auto) 0.1 (0.0-1.5) % Neut # (Auto) 8.1 H (1.4-5.7) K/uL Lymph # (Auto) 2.3 (0.6-2.4) K/uL [place] # (Auto) 1.6 H (0.0-0.8) K/uL Eos # (Auto) 0.0 (0.0-0.7) K/uL Baso # (Auto) 0.0 (0.0-0.1) K/uL Nucleated RBC % 0.0 /100WBC Nucleated RBCs # 0 K/uL Sodium 137 (136-145) mmol/L Potassium 4.3 (3.5-5.1) mmol/L Chloride 103 (98-107) mmol/L Carbon Dioxide 26.7 (21.0-32.0) mmol/L BUN 9 (7.0-18.0) mg/dL Creatinine 0.6 (0.6-1.0) mg/dL Est Cr Clr Drug Dosing 110.77 mL/min Estimated GFR (MDRD) > 60.0 ml/min Glucose 109 H (74-106) mg/dL Calcium 8.3 L (8.5-10.1) mg/dL Magnesium 1.5 L (1.8-2.4) mg/dL Urine Color YELLOW Urine Appearance CLEAR Urine pH 7.5 (5.0-8.0) Ur Specific [place] 1.020 (1.001-1.035) Urine Protein NEGATIVE (NEGATIVE) mg/dL Urine Glucose (UA) NEGATIVE (NEGATIVE) mg/dL Urine Ketones NEGATIVE (NEGATIVE) mg/dL Urine Occult Blood NEGATIVE (NEGATIVE) Urine Nitrite NEGATIVE (NEGATIVE) Urine Bilirubin NEGATIVE (NEGATIVE) Urine Urobilinogen 0.2 (<2.0) EU/dL Ur Leukocyte Esterase NEGATIVE (NEGATIVE) Med Orders - Current: Current Medications Pantoprazole Sodium 40 mg/ (Sodium Chloride) 10 mls @ 300 mls/hr IV BID [facility] Last Admin: 08/13/19 08:37 Dose: 300 mls/hr Sodium Chloride (Normal Saline) 1,000 mls @ 125 mls/hr IV ASDIRECTED [facility] Last Admin: 08/13/19 07:53 Dose: 125 mls/hr Methylprednisolone Sodium Succinate (Solu-Medrol) 20 mg IVPUSH Q8H [facility] Last Admin: 08/13/19 06:33 Dose: 20 mg Ondansetron HCl (Zofran) 4 mg IVPUSH Q4H PRN PRN Reason: Nausea/Vomiting Last Admin: 08/12/19 10:28 Dose: 4 mg Oxycodone HCl (Oxycodone) 10 mg PO Q4H PRN PRN Reason: Pain Last Admin: 08/13/19 08:54 Dose: 10 mg Sodium Chloride (Saline Flush) 10 ml FLUSH ASDIRECTED PRN PRN Reason: Keep Vein Open Last Admin: 08/09/19 10:28 Dose: 10 ml Sodium Chloride (Saline Flush) 2.5 ml FLUSH ASDIRECTED PRN PRN Reason: Keep Vein Open Last Admin: 08/09/19 10:28 Dose: 2.5 ml Discontinued Medications Hydromorphone HCl (Dilaudid) 0.5 mg IVPUSH Q4H PRN PRN Reason: Pain Last Admin: 08/11/19 08:15 Dose: 0.5 mg Sodium Chloride (Normal Saline) 1,000 mls @ 999 mls/hr IV BOLUS ONE Stop: 08/09/19 10:52 Last Admin: 08/09/19 10:28 Dose: 999 mls/hr Potassium Chloride/Sodium Chloride (Normal Saline With 20 Meq Kcl) 1,000 mls @ 100 mls/hr IV ASDIRECTED [facility] Last Admin: 08/09/19 12:34 Dose: 100 mls/hr Magnesium Sulfate 4 gm/ Premix 100 mls @ 50 mls/hr IV ONETIME ONE Stop: 08/09/19 14:39 Last Admin: 08/09/19 14:00 Dose: 50 mls/hr Magnesium Sulfate 2 gm/ Premix 50 mls @ 50 mls/hr IV ONETIME ONE Stop: 08/10/19 12:03 Last Admin: 08/10/19 11:29 Dose: 50 mls/hr Magnesium Sulfate 2 gm/ Premix 50 mls @ 50 mls/hr IV ONETIME ONE Stop: 08/11/19 09:04 Last Admin: 08/11/19 08:26 Dose: 50 mls/hr Metronidazole 500 mg/ Premix 100 mls @ 100 mls/hr IV QID [facility] Last Admin: 08/11/19 11:19 Dose: Not Given Magnesium Sulfate 2 gm/ Premix 50 mls @ 50 mls/hr IV ONETIME ONE Stop: 08/12/19 08:49 Last Admin: 08/12/19 08:23 Dose: 50 mls/hr Magnesium Sulfate 4 gm/ Premix 100 mls @ 50 mls/hr IV ONETIME ONE Stop: 08/13/19 09:55 Last Admin: 08/13/19 08:42 Dose: 50 mls/hr Methylprednisolone Sodium Succinate (Solu-Medrol) 20 mg IVPUSH Q8H [facility] Last Admin: 08/11/19 04:03 Dose: 20 mg Morphine Sulfate (Morphine) 4 mg IVPUSH ONETIME ONE Stop: 08/09/19 10:27 Last Admin: 08/09/19 10:30 Dose: 4 mg Ondansetron HCl (Zofran) 4 mg IVPUSH ONETIME ONE Stop: 08/09/19 09:53 Last Admin: 08/09/19 10:28 Dose: 4 mg Oxycodone HCl (Oxycodone) 5 mg PO Q4H PRN PRN Reason: Pain Last Admin: 08/13/19 04:24 Dose: 5 mg Vancomycin HCl (Vancomycin) 250 mg PO QID [facility] Last Admin: 08/11/19 11:19 Dose: Not Given - Exam General: Alert, Oriented, Cooperative, No Acute Distress Lungs: Clear to Auscultation, Normal Respiratory Effort Cardiovascular: Regular Rate, Regular Rhythm GI/Abdominal Exam: Normal Bowel Sounds, Soft, No Distention, Tender. No: Rigid Back Exam: Normal Inspection, Full Range of Motion Extremities: Normal Inspection, Normal Range of Motion, Non-Tender Neurological: No New Focal Deficit Psy/Mental Status: Alert, Normal Affect, Normal Mood Sepsis Event Note - Evaluation Sepsis Screening Result: No Definite Risk - Focused Exam Vital Signs: Vital Signs Temp Pulse Resp BP Pulse Ox 08/13/19 08:00 98.2 F 54 L 16 125/60 100 08/13/19 04:00 98.4 F 54 L 14 100/50 L 98 08/13/19 00:00 98.4 F 56 L 16 108/48 L 98 Date Exam was Performed: 08/13/19 Time Exam was Performed: 10:15 - Problem List & Annotations (1) Abdominal pain SNOMED Code(s): 22086266 Code(s): R10.9 - UNSPECIFIED ABDOMINAL PAIN Status: Acute Current Visit: Yes Qualifiers: Abdominal location: generalized Qualified Code(s): R10.84 - Generalized abdominal pain (2) Anemia SNOMED Code(s): 824859944 Code(s): D64.9 - ANEMIA, UNSPECIFIED Status: Acute Current Visit: No (3) History of ulcerative colitis SNOMED Code(s): 337765322 Code(s): Z87.19 - PERSONAL HISTORY OF OTHER DISEASES OF THE DIGESTIVE SYSTEM Status: Acute Current Visit: No (4) Hypokalemia SNOMED Code(s): 19300232 Code(s): E87.6 - HYPOKALEMIA Status: Acute Current Visit: No (5) Hx of Clostridium difficile infection SNOMED Code(s): 917024701, 416427404 Code(s): Z86.19 - PERSONAL HISTORY OF OTHER INFECTIOUS AND PARASITIC DISEASES Status: Chronic Current Visit: No - Problem List Review Problem List Initiated/Reviewed/Updated: Yes - My Orders Last 24 Hours: My Active Orders 08/13/19 07:57 oxyCODONE 10 mg PO Q4H PRN 08/13/19 09:37 Abdomen Pelvis wo Cont [CT] Urgent 08/13/19 09:45 UA W/MICROSCOPIC [URIN] Routine 08/14/19 05:11 BASIC METABOLIC PANEL,BMP [CHEM] AM CBC WITH AUTO DIFF [HEME] AM MG [MAGNESIUM] [CHEM] AM - Plan Plan:: 19 yo female admitted with abdominal pain 1. Abdominal pain- UC - Cdiff negative. - Solu-medrol 20 mg TID - Continue IVFs - Monitor electrolytes and replace as needed - Continue Oxycodone and monitor, reports pain control is not lasting. - Have call into Dr Lion to discuss his recommendations for pain control. Michele of starting narcotics for chronic pain - Tolerating regular diet, will place insurance follow up specialist consult to help with UC diet recommendations. - Having 1-2 stools per shift. Stool this morning per nursing had no blood, brown stools. VTE prophylaxis: SCDs and ambulation Dispo: likely home in am.
--- NOTE | 2019-08-13 10:30 | CT ---
CT abdomen and pelvis Technique: Multiple axial sections were obtained from above the dome of the diaphragm inferiorly through the pubic symphysis. Intravenous and oral contrast not utilized. Comparison: Prior CT abdomen and pelvis exam of 07/28/19. Findings: Visualized lung bases show nothing acute. Noncontrast appearance of the liver shows no discrete abnormality. Spleen appears within normal limits. Adrenal glands show no nodule. Kidneys show no abnormal calcifications or hydronephrosis. No discrete abnormality appreciated within the pancreas. Aorta shows no aneurysm. Gallbladder contains no calcified gallstones. No retroperitoneal adenopathy or mesenteric abnormalities are appreciated. No pelvic mass or adenopathy is seen. Appendix not definitely visualized. Increased stool is noted within the right colon and within portions of the transverse colon. Bowel wall thickening seen within more distal portions of the colon involving the distal transverse as well as portions of the descending colon. Bowel wall thickening within the distal transverse colon has slightly increased from previous study which is felt to be the etiology for the increase stool that is seen more proximally. Impression: 1. Increased bowel wall thickening within portions of the distal transverse colon. Increased stool is seen within the colon proximal to this area of bowel wall thickening. Both these findings are an interval change from previous study. 2. Mild bowel wall thickening within the descending colon believed to be stable. 3. No additional abnormality appreciated on noncontrast CT study of the abdomen and pelvis. Diagnostic code #3 This report was dictated in MDT
[2019-08-13] MEDS: Ondansetron 4 MG/2 ML SDV IVPUSH PRN (13:45)
--- NOTE | 2019-08-13 14:36 | PCM.SN.2 ---
- Free Text/Narrative Note: Spoke with Dr Seymour regarding readmissions for pain, N/V and bloody diarrhea. He is recommending transfer to [facility] for evaluation for possible colectomy. I spoke with admission navigator who is reporting most cases as these, patients are evaluated as outpatient. Will send demographics and images to help initiate transfer vs. set up of outpatient evaluation. Dr. Cedeño notified of Dr Seymour's recommendations. I spoke with Keysha she is also aware or these recommendations. Nervous about how she would get to [place] as outpatient.
--- NOTE | 2019-08-13 18:08 | PCM.SN.2 ---
- Free Text/Narrative Note: I spoke with Dr. Wilber Jordan at [facility]([phone]) who has accepted the patient for transfer. Arranging for transportation for tomorrow morning to [facility].
[2019-08-14] MEDS: Sodium Chloride 0.9% 1,000 ML IV SCH ×2 (01:29→08:17)
[2019-08-14] MEDS: oxyCODONE 5 MG Tab PO PRN ×2 (02:57→06:55)
[2019-08-14 06:40] LABS: BLOOD UREA NITROGEN,BUN 9 mg/dL (7.0-18.0); CARBON DIOXIDE,CO2 27.8 mmol/L (21.0-32.0); CHLORIDE,CL 102 mmol/L (98-107); GLUCOSE RANDOM 109 mg/dL (74-106); POTASSIUM,K 4.4 mmol/L (3.5-5.1); SODIUM,NA 137 mmol/L (136-145)
[2019-08-14] MEDS: methylPREDNISolone Sodium Succinate 40 MG/1 ML SDV IVPUSH SCH (06:57)
[2019-08-14] MEDS: Pantoprazole 40 MG in Sodium Chloride 0.9% 10 ML IV SCH (08:02)
--- NOTE | 2019-08-14 08:05 | PCM.DCSUM1 ---
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 Reports she saw her PCP yesterday, no change in management and after that symptoms started. Her pain is all over her abdomen and is sharp and crampy, similar to UC flares in the past. Has been taking prednisone at home and attempt to take hydrocodone but it didn't help. Reports more than 10 bloody bowel movements in the last 24 hours. Denies nausea/vomiting but felt like she had fever/chills. Patient was admitted for UC flare from 07/28/19- 07/31/19 during which she was started on Humira, next dose if 08/14/19. She was admitted from 08/01/19- which required blood transfusion. In the ER, work up revealed leukocytosis of 14.6 (on steroids), hemoglobin of 12.5 (discharged on 08/04 with hemoglobin of 12.5). She was hypokalemic with potassium of 3.1 and hypomagnesemia with mag of 1.4. No elevation in lipase. In the ER she was given IVF, potassium, morphine, and Zofran. Diagnosis: Stroke: No Modified Pelion Scale: No Symptoms at All Modified Pelion Scale Score: 0 - Discharge Data Discharge Date: 08/14/19 Discharge Disposition: DC/Tfer to Acute Hospital 02 Condition: Good - Referral to Home Health Primary Care Physician: Roddy Allen MD - Discharge Diagnosis/Problem(s) (1) Abdominal pain SNOMED Code(s): 91443260 ICD Code: R10.9 - UNSPECIFIED ABDOMINAL PAIN Status: Acute Current Visit : Yes Qualifiers: Abdominal location: generalized Qualified Code(s): R10.84 - Generalized abdominal pain (2) Anemia SNOMED Code(s): 799872408 ICD Code: D64.9 - ANEMIA, UNSPECIFIED Status: Acute Current Visit: No (3) History of ulcerative colitis SNOMED Code(s): 155863644 ICD Code: Z87.19 - PERSONAL HISTORY OF OTHER DISEASES OF THE DIGESTIVE SYSTEM Status: Acute Current Visit: No (4) Hypokalemia SNOMED Code(s): 84954101 ICD Code: E87.6 - HYPOKALEMIA Status: Acute Current Visit: No (5) Hx of Clostridium difficile infection SNOMED Code(s): 170014362, 613029987 ICD Code: Z86.19 - PERSONAL HISTORY OF OTHER INFECTIOUS AND PARASITIC DISEASES Status: Chronic Current Visit: No - Patient Summary/Data Consults: Consultations 08/11/19 14:30 Consult to [employer] [CONS] Routine Hospital Course: Admitting Diagnoses: UC flare abdominal pain bloody diarrhea Discharge Diagnoses: UC flare Keysha was admitted secondary to continued abdominal pain and bloody diarrhea. She was started back on IV Solumedrol 20 mg IV TID at instruction from GI specialist in [place]. As well as testing her for Cdiff, which she was negative for bother, antigen and toxin. NPO and slowly advanced to regular, but she continues to have significant pain. I spoke with her GI specialist Dr Seymour in [place], who recommended her to be transferred to [place] due to continued decline and no improvement with Humira. [facility] was contacted yesterday, Dr Cedeño spoke with Dr Jordan, who has kindly accepted Keysha for transfer. Transfer arranged for today. I spoke with Keysha regarding transfer, she requested I speak with her father Norman. I explained why the transfer was necessary and he verbalized understanding. She will be transferred today to [facility] via air ambulance. - Patient Instructions Diet: GI Soft/Low Residue/Low Fiber Activity: As Tolerated, No Strenuous Activities Showering/Bathing: July Shower Notify Provider of: Fever, Increased Pain, Swelling and Redness, Drainage, Nausea and/or Vomiting - Discharge Plan *PRESCRIPTION DRUG MONITORING PROGRAM REVIEWED*: Not Applicable *COPY OF PRESCRIPTION DRUG MONITORING REPORT IN PATIENT MEJIA: Not Applicable Home Medications: Home Meds predniSONE [Prednisone] 10 - 40 mg PO DAILY #82 tablet 07/31/19 [Rx] Magnesium 1 tab PO ASDIRECTED 08/09/19 [History] Ondansetron [Zofran] 4 mg PO ASDIRECTED PRN 08/09/19 [History] Oxygen Therapy Mode: Room Air Referrals: Red Seymour MD [Ordering Only Provider] - 08/20/19 (Please arrive 15 minutes early with insurance and identification cards. If you are not there early, they will not see you.) Roddy Allen MD [Primary Care Provider] - 08/19/19 12:30 pm (Arrive at 1215 with photo ID and insurance card. If you are not early, they will not see you.) - Discharge Summary/Plan Comment DC Time >30 min.: No - Patient Data Vitals - Most Recent: Last Vital Signs Temp 98.2 F 08/14/19 07:21 Pulse 54 L 08/14/19 07:21 Resp 18 08/14/19 07:21 BP 104/59 L 08/14/19 07:21 Pulse Ox 100 08/14/19 07:21 Weight - Most Recent: 47.31 kg I&O - Last 24 hours: Intake & Output 08/13/19 08/14/19 08/14/19 22:59 06:59 14:59 Intake Total 2750 2098 Output Total 2250 2665 Balance 500 -477 Lab Results - Last 24 hrs: Laboratory Results - last 24 hr 08/13/19 08/14/19 08/14/19 Range/Units 09:45 06:03 06:03 WBC 14.62 H (4.0-11.0) K/uL RBC 4.31 (4.30-5.90) M/uL Hgb 10.5 L (12.0-16.0) g/dL Hct 34.6 L (36.0-46.0) % MCV 80.3 (80.0-98.0) fL MCH 24.4 L (27.0-32.0) pg MCHC 30.3 L (31.0-37.0) g/dL RDW Std Deviation 59.6 (28.0-62.0) fl RDW Coeff of Buck 20 H (11.0-15.0) % Plt Count 503 H (150-400) K/uL MPV 8.70 (7.40-12.00) fL Neut % (Auto) 80.0 (48.0-80.0) % Lymph % (Auto) 12.0 L (16.0-40.0) % [place] % (Auto) 7.8 (0.0-15.0) % Eos % (Auto) 0.1 (0.0-7.0) % Baso % (Auto) 0.1 (0.0-1.5) % Neut # (Auto) 11.7 H (1.4-5.7) K/uL Lymph # (Auto) 1.8 (0.6-2.4) K/uL [place] # (Auto) 1.1 H (0.0-0.8) K/uL Eos # (Auto) 0.0 (0.0-0.7) K/uL Baso # (Auto) 0.0 (0.0-0.1) K/uL Nucleated RBC % 0.0 /100WBC Nucleated RBCs # 0 K/uL Sodium 137 (136-145) mmol/L Potassium 4.4 (3.5-5.1) mmol/L Chloride 102 (98-107) mmol/L Carbon Dioxide 27.8 (21.0-32.0) mmol/L BUN 9 (7.0-18.0) mg/dL Creatinine 0.7 (0.6-1.0) mg/dL Est Cr Clr Drug Dosing 94.95 mL/min Estimated GFR (MDRD) > 60.0 ml/min Glucose 109 H (74-106) mg/dL Calcium 8.6 (8.5-10.1) mg/dL Magnesium 1.6 L (1.8-2.4) mg/dL Urine Color YELLOW Urine Appearance CLEAR Urine pH 7.5 (5.0-8.0) Ur Specific [place] 1.020 (1.001-1.035) Urine Protein NEGATIVE (NEGATIVE) mg/dL Urine Glucose (UA) NEGATIVE (NEGATIVE) mg/dL Urine Ketones NEGATIVE (NEGATIVE) mg/dL Urine Occult Blood NEGATIVE (NEGATIVE) Urine Nitrite NEGATIVE (NEGATIVE) Urine Bilirubin NEGATIVE (NEGATIVE) Urine Urobilinogen 0.2 (<2.0) EU/dL Ur Leukocyte Esterase NEGATIVE (NEGATIVE) Urine RBC 0-1 (0-2/HPF) Urine WBC 0-1 (0-5/HPF) Ur Epithelial Cells OCCASIONAL (NONE-FEW) Urine Bacteria RARE (NEGATIVE) Med Orders - Current: Current Medications Pantoprazole Sodium 40 mg/ (Sodium Chloride) 10 mls @ 300 mls/hr IV BID [facility] Last Admin: 08/13/19 21:25 Dose: 300 mls/hr Sodium Chloride (Normal Saline) 1,000 mls @ 125 mls/hr IV ASDIRECTED [facility] Last Admin: 08/14/19 01:29 Dose: 125 mls/hr Methylprednisolone Sodium Succinate (Solu-Medrol) 20 mg IVPUSH Q8H [facility] Last Admin: 08/14/19 06:57 Dose: 20 mg Ondansetron HCl (Zofran) 4 mg IVPUSH Q4H PRN PRN Reason: Nausea/Vomiting Last Admin: 08/13/19 13:45 Dose: 4 mg Oxycodone HCl (Oxycodone) 10 mg PO Q4H PRN PRN Reason: Pain Last Admin: 08/14/19 06:55 Dose: 10 mg Sodium Chloride (Saline Flush) 10 ml FLUSH ASDIRECTED PRN PRN Reason: Keep Vein Open Last Admin: 08/09/19 10:28 Dose: 10 ml Sodium Chloride (Saline Flush) 2.5 ml FLUSH ASDIRECTED PRN PRN Reason: Keep Vein Open Last Admin: 08/09/19 10:28 Dose: 2.5 ml Discontinued Medications Hydromorphone HCl (Dilaudid) 0.5 mg IVPUSH Q4H PRN PRN Reason: Pain Last Admin: 08/11/19 08:15 Dose: 0.5 mg Sodium Chloride (Normal Saline) 1,000 mls @ 999 mls/hr IV BOLUS ONE Stop: 08/09/19 10:52 Last Admin: 08/09/19 10:28 Dose: 999 mls/hr Potassium Chloride/Sodium Chloride (Normal Saline With 20 Meq Kcl) 1,000 mls @ 100 mls/hr IV ASDIRECTED [facility] Last Admin: 08/09/19 12:34 Dose: 100 mls/hr Magnesium Sulfate 4 gm/ Premix 100 mls @ 50 mls/hr IV ONETIME ONE Stop: 08/09/19 14:39 Last Admin: 08/09/19 14:00 Dose: 50 mls/hr Magnesium Sulfate 2 gm/ Premix 50 mls @ 50 mls/hr IV ONETIME ONE Stop: 08/10/19 12:03 Last Admin: 08/10/19 11:29 Dose: 50 mls/hr Magnesium Sulfate 2 gm/ Premix 50 mls @ 50 mls/hr IV ONETIME ONE Stop: 08/11/19 09:04 Last Admin: 08/11/19 08:26 Dose: 50 mls/hr Metronidazole 500 mg/ Premix 100 mls @ 100 mls/hr IV QID [facility] Last Admin: 08/11/19 11:19 Dose: Not Given Magnesium Sulfate 2 gm/ Premix 50 mls @ 50 mls/hr IV ONETIME ONE Stop: 08/12/19 08:49 Last Admin: 08/12/19 08:23 Dose: 50 mls/hr Magnesium Sulfate 4 gm/ Premix 100 mls @ 50 mls/hr IV ONETIME ONE Stop: 08/13/19 09:55 Last Admin: 08/13/19 08:42 Dose: 50 mls/hr Methylprednisolone Sodium Succinate (Solu-Medrol) 20 mg IVPUSH Q8H [facility] Last Admin: 08/11/19 04:03 Dose: 20 mg Morphine Sulfate (Morphine) 4 mg IVPUSH ONETIME ONE Stop: 08/09/19 10:27 Last Admin: 08/09/19 10:30 Dose: 4 mg Ondansetron HCl (Zofran) 4 mg IVPUSH ONETIME ONE Stop: 08/09/19 09:53 Last Admin: 08/09/19 10:28 Dose: 4 mg Oxycodone HCl (Oxycodone) 5 mg PO Q4H PRN PRN Reason: Pain Last Admin: 08/13/19 04:24 Dose: 5 mg Vancomycin HCl (Vancomycin) 250 mg PO QID [facility] Last Admin: 08/11/19 11:19 Dose: Not Given - Exam General: Reports: Alert, Oriented, Cooperative, No Acute Distress Lungs: Reports: Clear to Auscultation, Normal Respiratory Effort Cardiovascular: Reports: Regular Rate, Regular Rhythm GI/Abdominal Exam: Normal Bowel Sounds, Soft, Tender (throughout) Extremities: Normal Range of Motion Neurological: Reports: No New Focal Deficit Psy/Mental Status: Reports: Alert, Normal Affect, Normal Mood
[2019-08-14] MEDS ORDERED: ADALIMUMAB 80 MG SUBCUT STA (08:07)
[2019-08-14] MEDS: Ondansetron 4 MG/2 ML SDV IVPUSH PRN (08:22)
== END 2019-08-14 08:00 | DRG 245 ==
LOC: MW.ED 09:43 → MW.MS 12:20 → OBSVTOIN 08-11 11:08 → MW.MS 08-11 11:28
PROVIDERS: ADMIT Internal Medicine; ATTEND Internal Medicine
DX: K51.90 Ulcerative colitis, unspecified, without complications (principal); D64.9 Anemia, unspecified; E87.6 Hypokalemia; F98.8 Other specified behavioral and emotional disorders with onset usually occurring in childhood and adolescence; Z86.19 Personal history of other infectious and parasitic diseases; Z79.52 Long term (current) use of systemic steroids; Z79.899 Other long term (current) drug therapy
CPT/HCPCS: 36415; 74176; 74176-26; 80048; 80053; 81001; 81025; 83690; 83735; 85025; 87324; 93005; 96374; 96375; 99283; 99285-25; A9270-GY; C9113; J1170; J2270; J2405; J2920; J3475; J3480; J7030; J7050

== ENCOUNTER 2019-09-12 14:11 | Inpatient (IN) | payer BC ==
[2019-09-12] MEDS ORDERED: Sodium Chloride 0.9% 10 ML Syringe FLUSH PRN (14:41)
[2019-09-12] MEDS ORDERED: Sodium Chloride 0.9% 2.5 ML Syringe FLUSH PRN (14:41)
[2019-09-12] MEDS ORDERED: Morphine 4 MG/ML Syringe IVPUSH ONE (14:43)
[2019-09-12] MEDS ORDERED: Ondansetron 4 MG/2 ML SDV IVPUSH ONE (14:43)
[2019-09-12 15:35] LABS: BLOOD UREA NITROGEN,BUN 7 mg/dL (7.0-18.0); CARBON DIOXIDE,CO2 23.9 mmol/L (21.0-32.0); CHLORIDE,CL 106 mmol/L (98-107); GLUCOSE RANDOM 128 mg/dL (74-106); LIPASE 98 U/L (73-393); POTASSIUM,K 3.6 mmol/L (3.5-5.1); SODIUM,NA 143 mmol/L (136-145)
--- NOTE | 2019-09-12 15:42 | EDM.PDOC ---
ED HPI GENERAL MEDICAL PROBLEM - General Chief Complaint: Gastrointestinal Problem Stated Complaint: STOMACH PAIN Time Seen by Provider: 09/12/19 14:21 - History of Present Illness INITIAL COMMENTS - FREE TEXT/NARRATIVE: History of present illness: Patient presents with abdominal pain that began earlier today pain is diffuse sharp she has had nausea and vomited once she denies any fever chills she recently about 3 weeks ago had a total colectomy with ileostomy placed secondary to ulcerative colitis. At [facility] she says this pain is different she is not had this type of pain before she believes her ostomy is working there is gas and fluid in the ostomy bag. Her postoperative course was uncomplicated and this is a new interval of pain unlike her ulcerative colitis pain. Review of systems: As per history of present illness and below otherwise all systems reviewed and negative. Past medical history: As per history of present illness and as reviewed below otherwise noncontributory. Surgical history: As per history of present illness and as reviewed below otherwise noncontributory. Social history: No reported history of drug or alcohol abuse. Family history: As per history of present illness and as reviewed below otherwise noncontributory. Physical exam: HEENT: Atraumatic, normocephalic, pupils reactive, negative for conjunctival pallor or scleral icterus, mucous membranes moist, throat clear, neck supple, nontender, trachea midline. Lungs: Clear to auscultation, breath sounds equal bilaterally, chest nontender. Heart: S1S2, regular, negative for clicks, rubs, or JVD. Abdomen: Soft, nondistended, usually tender with some guarding the ostomy appears to be healing well the ostomy bag has gas and stool in it.. Negative for masses or hepatosplenomegaly. Negative for costovertebral tenderness. Pelvis: Stable nontender. Genitourinary: Deferred. Rectal: Deferred. Extremities: Atraumatic, negative for cords or calf pain. Neurovascular unremarkable. Neuro: Awake, alert, oriented. Cranial nerves II through XII unremarkable. Cerebellum unremarkable. Motor and sensory unremarkable throughout. Exam nonfocal. Diagnostics: [] Therapeutics: [] Impression: Abdominal pain Plan: Medicated for her discomfort and nausea she will receive a fluid bolus labs and imaging will be obtained and she will be reassessed. [] Definitive disposition and diagnosis as appropriate pending reevaluation and rev iew of above. abd Pain Score (Numeric/FACES): 10 - Related Data Allergies Allergy/AdvReac Type Severity Reaction Status Date / Time No Known Allergies Allergy Verified 09/12/19 20:33 Home Meds: Home Meds predniSONE [Prednisone] 10 - 40 mg PO DAILY #82 tablet 07/31/19 [Rx] Magnesium 1 tab PO ASDIRECTED 08/09/19 [History] Ondansetron [Zofran] 4 mg PO ASDIRECTED PRN 08/09/19 [History] Enoxaparin [Lovenox] 30 mg SUBCUT DAILY 09/12/19 [History] Past Medical History - Past Health History Medical/Surgical History: Denies Medical/Surgical History HEENT History: Reports: Other (See Below) Other HEENT History: tonsillitis Cardiovascular History: Reports: None Respiratory History: Reports: None Gastrointestinal History: Reports: Chronic Diarrhea, Inflammatory Bowel Disease, Other (See Below) Other Gastrointestinal History: History of Ulcerative Colitis, colectomy 2020 Genitourinary History: Reports: None [employer] History: Reports: Other (See Below) Other [employer] History: Bacterial vaginitis, yeast infection Musculoskeletal History: Reports: None Neurological History: Reports: None Psychiatric History: Reports: ADHD Endocrine/Metabolic History: Reports: None 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 Pump 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: N/A Hematologic History: Reports: Anemia, Other (See Below) Other Hematologic History: Blood Transfussions 2018 Immunologic History: Reports: None Oncologic (Cancer) History: Reports: None Dermatologic History: Reports: None - Infectious Disease History Infectious Disease History: Reports: None - Past Surgical History Head Surgeries/Procedures: Reports: None Cardiovascular Surgical History: Reports: None GI Surgical History: Reports: Colonoscopy, Other (See Below) Other GI Surgeries/Procedures: Fecal transplant Female Surgical History: Reports: None Social & Family History - Family History Family Medical History: Noncontributory - Tobacco Use Smoking Status *Q: Never Smoker - Caffeine Use Caffeine Use: Reports: None Other Caffeine Use: seldom ED ROS GENERAL - Review of Systems Review Of Systems: See Below ED EXAM, GENERAL - Physical Exam Exam: See Below Course - Vital Signs Text/Narrative:: Patient still feeling uncomfortable with her abdomen after several doses of pain medication she was reexamined at 6 PM her abdomen waxer tender there is some mild guarding the tenderness is diffuse the ostomy still appears to be functioning. CT of the abdomen pelvis read by radiology is reportedly nothing acute there is suspicion of Ant based on radiological findings however her urine is negative. I discussed case with Dr. Leyva at 6:05 PM he recommends attempting to admit the patient to medicine and she will consult. I discussed case Dr. Cedeño immediately thereafter and he will admit the patient I will empirically treat her with Zosyn Last Recorded V/S: Last Vital Signs Temp 36.1 C 09/13/19 00:19 Pulse 61 09/13/19 00:19 Resp 15 09/13/19 00:19 BP 116/53 L 09/13/19 00:19 Pulse Ox 99 09/13/19 00:19 - Orders/Labs/Meds Orders: Active Orders 24 hr Category Date Time Status Morphine Med 09/12/19 16:27 Active 4 mg IVPUSH Q2H PRN Sodium Chloride 0.9% [Saline Flush] Med 09/12/19 14:41 Active 10 ml FLUSH ASDIRECTED PRN Sodium Chloride 0.9% [Saline Flush] Med 09/12/19 14:41 Active 2.5 ml FLUSH ASDIRECTED PRN Saline Lock Insert [OM.PC] Stat Oth 09/12/19 14:41 Ordered Medication Orders Calcium Carbonate/Glycine (Tums) 1,000 mg PO TID PRN PRN Reason: Indigestion Last Admin: 09/12/19 21:55 Dose: 1,000 mg Documented by: SUDHIR Enoxaparin Sodium (Lovenox) 30 mg SUBCUT Q24H [facility] Last Admin: 09/12/19 21:54 Dose: 30 mg Documented by: SUDHIR Sodium Chloride (Normal Saline) 1,000 mls @ 80 mls/hr IV CONTINUOUS ONE Stop: 09/13/19 08:28 Last Admin: 09/12/19 20:46 Dose: 80 mls/hr Documented by: SUDHIR Morphine Sulfate (Morphine) 4 mg IVPUSH Q2H PRN PRN Reason: Pain (moderate 4-6) Last Admin: 09/13/19 05:42 Dose: 4 mg Documented by: Admin: 09/13/19 02:15 Dose: 4 mg Documented by: Admin: 09/12/19 22:25 Dose: 4 mg Documented by: Admin: 09/12/19 16:34 Dose: 4 mg Documented by: JULIO CÉSAR Omeprazole (Omeprazole) 20 mg PO BEDTIME DONNIE Omeprazole (Omeprazole) 20 mg PO BIDAC DONNIE Last Admin: 09/13/19 06:44 Dose: 20 mg Documented by: SUDHIR Ondansetron HCl (Zofran) 4 mg IVPUSH Q4H PRN PRN Reason: Nausea Last Admin: 09/12/19 20:06 Dose: 4 mg Documented by: [id number] Prednisone (Prednisone) 40 mg PO DAILY DONNIE; Taper Stop: 10/14/19 08:59 Sodium Chloride (Saline Flush) 10 ml FLUSH ASDIRECTED PRN PRN Reason: Keep Vein Open Last Admin: 09/12/19 14:50 Dose: 10 ml Documented by: [id number] Sodium Chloride (Saline Flush) 2.5 ml FLUSH ASDIRECTED PRN PRN Reason: Keep Vein Open Last Admin: 09/12/19 14:50 Dose: 2.5 ml Documented by: [id number] Labs: Laboratory Tests 09/12/19 09/12/19 09/12/19 Range/Units 15:00 15:00 16:00 WBC 13.74 H (4.0-11.0) K/uL RBC 4.69 (4.30-5.90) M/uL Hgb 11.2 L (12.0-16.0) g/dL Hct 37.4 (36.0-46.0) % MCV 79.7 L (80.0-98.0) fL MCH 23.9 L (27.0-32.0) pg MCHC 29.9 L (31.0-37.0) g/dL RDW Std Deviation 51.3 (28.0-62.0) fl RDW Coeff of Buck 17 H (11.0-15.0) % Plt Count 420 H (150-400) K/uL MPV 9.40 (7.40-12.00) fL Neut % (Auto) 88.4 H (48.0-80.0) % Lymph % (Auto) 8.6 L (16.0-40.0) % [place] % (Auto) 2.9 (0.0-15.0) % Eos % (Auto) 0.0 (0.0-7.0) % Baso % (Auto) 0.1 (0.0-1.5) % Neut # (Auto) 12.1 H (1.4-5.7) K/uL Lymph # (Auto) 1.2 (0.6-2.4) K/uL [place] # (Auto) 0.4 (0.0-0.8) K/uL Eos # (Auto) 0.0 (0.0-0.7) K/uL Baso # (Auto) 0.0 (0.0-0.1) K/uL Nucleated RBC % 0.0 /100WBC Nucleated RBCs # 0 K/uL Sodium 143 (136-145) mmol/L Potassium 3.6 (3.5-5.1) mmol/L Chloride 106 (98-107) mmol/L Carbon Dioxide 23.9 (21.0-32.0) mmol/L BUN 7 (7.0-18.0) mg/dL Creatinine 0.8 (0.6-1.0) mg/dL Est Cr Clr Drug Dosing 81.25 mL/min Estimated GFR (MDRD) > 60.0 ml/min Glucose 128 H (74-106) mg/dL Calcium 9.3 (8.5-10.1) mg/dL Total Bilirubin 0.2 (0.2-1.0) mg/dL AST 16 (15-37) IU/L ALT 30 (14-63) IU/L Alkaline Phosphatase 63 (46-116) U/L Total Protein 7.4 (6.4-8.2) g/dL Albumin 4.0 (3.4-5.0) g/dL Globulin 3.4 (2.6-4.0) g/dL Albumin/Globulin Ratio 1.2 (0.9-1.6) Lipase 98 (73-393) U/L Urine Color YELLOW Urine Appearance CLEAR Urine pH 7.0 (5.0-8.0) Ur Specific [place] 1.020 (1.001-1.035) Urine Protein NEGATIVE (NEGATIVE) mg/dL Urine Glucose (UA) NEGATIVE (NEGATIVE) mg/dL Urine Ketones NEGATIVE (NEGATIVE) mg/dL Urine Occult Blood TRACE-INTACT H (NEGATIVE) Urine Nitrite NEGATIVE (NEGATIVE) Urine Bilirubin NEGATIVE (NEGATIVE) Urine Urobilinogen 0.2 (<2.0) EU/dL Ur Leukocyte Esterase NEGATIVE (NEGATIVE) Urine RBC 2-4 (0-2/HPF) Urine WBC 0-1 (0-5/HPF) Ur Epithelial Cells RARE (NONE-FEW) Urine Bacteria RARE (NEGATIVE) Urine HCG, Qual (NEGATIVE) 09/12/19 Range/Units 16:00 WBC (4.0-11.0) K/uL RBC (4.30-5.90) M/uL Hgb (12.0-16.0) g/dL Hct (36.0-46.0) % MCV (80.0-98.0) fL MCH (27.0-32.0) pg MCHC (31.0-37.0) g/dL RDW Std Deviation (28.0-62.0) fl RDW Coeff of Buck (11.0-15.0) % Plt Count (150-400) K/uL MPV (7.40-12.00) fL Neut % (Auto) (48.0-80.0) % Lymph % (Auto) (16.0-40.0) % [place] % (Auto) (0.0-15.0) % Eos % (Auto) (0.0-7.0) % Baso % (Auto) (0.0-1.5) % Neut # (Auto) (1.4-5.7) K/uL Lymph # (Auto) (0.6-2.4) K/uL [place] # (Auto) (0.0-0.8) K/uL Eos # (Auto) (0.0-0.7) K/uL Baso # (Auto) (0.0-0.1) K/uL Nucleated RBC % /100WBC Nucleated RBCs # K/uL Sodium (136-145) mmol/L Potassium (3.5-5.1) mmol/L Chloride (98-107) mmol/L Carbon Dioxide (21.0-32.0) mmol/L BUN (7.0-18.0) mg/dL Creatinine (0.6-1.0) mg/dL Est Cr Clr Drug Dosing mL/min Estimated GFR (MDRD) ml/min Glucose (74-106) mg/dL Calcium (8.5-10.1) mg/dL Total Bilirubin (0.2-1.0) mg/dL AST (15-37) IU/L ALT (14-63) IU/L Alkaline Phosphatase (46-116) U/L Total Protein (6.4-8.2) g/dL Albumin (3.4-5.0) g/dL Globulin (2.6-4.0) g/dL Albumin/Globulin Ratio (0.9-1.6) Lipase (73-393) U/L Urine Color Urine Appearance Urine pH (5.0-8.0) Ur Specific [place] (1.001-1.035) Urine Protein (NEGATIVE) mg/dL Urine Glucose (UA) (NEGATIVE) mg/dL Urine Ketones (NEGATIVE) mg/dL Urine Occult Blood (NEGATIVE) Urine Nitrite (NEGATIVE) Urine Bilirubin (NEGATIVE) Urine Urobilinogen (<2.0) EU/dL Ur Leukocyte Esterase (NEGATIVE) Urine RBC (0-2/HPF) Urine WBC (0-5/HPF) Ur Epithelial Cells (NONE-FEW) Urine Bacteria (NEGATIVE) Urine HCG, Qual NEGATIVE (NEGATIVE) Meds: Medications Generic Name Dose Route Start Last Admin Trade Name Freq PRN Reason Stop Dose Admin Calcium Carbonate/Glycine 1,000 mg 09/12/19 21:44 09/12/19 21:55 Tums PO 1,000 mg TID PRN Administration Indigestion Enoxaparin Sodium 30 mg 09/12/19 21:45 09/12/19 21:54 Lovenox SUBCUT 30 mg Q24H DONNIE Administration Sodium Chloride 1,000 mls @ 80 mls/hr 09/12/19 19:59 09/12/19 20:46 Normal Saline IV 09/13/19 08:28 80 mls/hr CONTINUOUS ONE Administration Morphine Sulfate 4 mg 09/12/19 16:27 09/13/19 05:42 Morphine IVPUSH 4 mg Q2H PRN Administration Pain (moderate 4-6) Omeprazole 20 mg 09/13/19 21:00 Omeprazole PO BEDTIME DONNIE Omeprazole 20 mg 09/13/19 07:30 09/13/19 06:44 Omeprazole PO 20 mg BIDAC DONNIE Administration Ondansetron HCl 4 mg 09/12/19 19:30 09/12/19 20:06 Zofran IVPUSH 4 mg Q4H PRN Administration Nausea Prednisone 40 mg 09/13/19 09:00 Prednisone PO 10/14/19 08:59 DAILY DONNIE Taper Sodium Chloride 10 ml 09/12/19 14:41 09/12/19 14:50 Saline Flush FLUSH 10 ml ASDIRECTED PRN Administration Keep Vein Open Sodium Chloride 2.5 ml 09/12/19 14:41 09/12/19 14:50 Saline Flush FLUSH 2.5 ml ASDIRECTED PRN Administration Keep Vein Open Discontinued Medications Generic Name Dose Route Start Last Admin Trade Name Freq PRN Reason Stop Dose Admin Dicyclomine HCl 20 mg 09/12/19 16:27 09/12/19 17:12 Bentyl PO 09/12/19 16:28 20 mg ONETIME ONE Administration Hydromorphone HCl 0.5 mg 09/12/19 19:31 Dilaudid IVPUSH Q1H PRN Pain Sodium Chloride 1,000 mls @ 999 mls/hr 09/12/19 16:26 09/12/19 16:34 Normal Saline IV 09/12/19 17:26 999 mls/hr .Bolus ONE Administration Piperacillin Sod/Tazobactam 50 mls @ 100 mls/hr 09/12/19 18:02 09/12/19 18:49 Sod 3.375 gm/ Sodium Chloride IV 09/12/19 18:31 100 mls/hr ONETIME ONE Administration Iopamidol 75 ml 09/12/19 17:02 09/12/19 17:03 Isovue Multipack-370 (76%) IVPUSH 09/12/19 17:03 75 ml ONETIME STA Administration Morphine Sulfate 4 mg 09/12/19 14:43 09/12/19 14:50 Morphine IVPUSH 09/12/19 14:44 4 mg ONETIME ONE Administration Ondansetron HCl 4 mg 09/12/19 14:43 09/12/19 14:50 Zofran IVPUSH 09/12/19 14:44 4 mg ONETIME ONE Administration Departure - Departure Time of Disposition: 18:06 Disposition: Refer to Observation Condition: Good Clinical Impression: Abdominal pain - Discharge Information *PRESCRIPTION DRUG MONITORING PROGRAM REVIEWED*: Not Applicable *COPY OF PRESCRIPTION DRUG MONITORING REPORT IN PATIENT MEJIA: Not Applicable Sepsis Event Note (ED) - Evaluation Sepsis Screening Result: No Definite Risk - My Orders Last 24 Hours: My Active Orders 09/12/19 14:41 Sodium Chloride 0.9% [Saline Flush] 10 ml FLUSH ASDIRECTED PRN Sodium Chloride 0.9% [Saline Flush] 2.5 ml FLUSH ASDIRECTED PRN Saline Lock Insert [OM.PC] Stat 09/12/19 16:27 Morphine 4 mg IVPUSH Q2H PRN - Assessment/Plan Last 24 Hours: My Active Orders 09/12/19 14:41 Sodium Chloride 0.9% [Saline Flush] 10 ml FLUSH ASDIRECTED PRN Sodium Chloride 0.9% [Saline Flush] 2.5 ml FLUSH ASDIRECTED PRN Saline Lock Insert [OM.PC] Stat 09/12/19 16:27 Morphine 4 mg IVPUSH Q2H PRN
[2019-09-12] MEDS ORDERED: Sodium Chloride 0.9% 1,000 ML IV ONE ×2 (16:26→19:59)
[2019-09-12] MEDS ORDERED: Dicyclomine 10 MG Cap PO ONE (16:27)
[2019-09-12] MEDS: Morphine 4 MG/ML Syringe IVPUSH PRN ×2 (16:34→22:25)
[2019-09-12] MEDS ORDERED: Iopamidol 755 MG/ML 500 ML Multipack Bottle IVPUSH STA (17:02)
--- NOTE | 2019-09-12 17:20 | CT ---
CT abdomen and pelvis Technique: Multiple axial sections were obtained from above the dome of the diaphragm inferiorly through the pubic symphysis. Intravenous contrast was utilized. No oral contrast has been given. Comparison: Prior CT abdomen and pelvis exam of 08/13/19. Findings: Visualized lung bases show nothing acute. Liver shows no focal parenchymal abnormality. Spleen appears within normal limits. Diminished areas of enhancement within the right kidney raising the possibility of pyelonephritis. Left kidney enhances normally. Adrenal glands show no nodule. Pancreas is within normal limits. Aorta shows no aneurysm. Gallbladder contains no calcified gallstones. Ostomy is noted. No discrete pelvic abnormality is seen. Bone window settings were reviewed which appear within normal limits for the patient's age. Impression: 1. Ostomy as an interval change from prior exam. 2. Patchy areas of diminished enhancement within the right kidney. This presumably represents right-sided pyelonephritis. 3. No additional abnormality is appreciated. Diagnostic code #3 This report was dictated in MDT
[2019-09-12] MEDS ORDERED: Piperacillin/Tazobactam 3.375 GM in Sodium Chloride 0.9% 50 ML IV ONE (18:02)
[2019-09-12] MEDS ORDERED: HYDROmorphone 1 MG/ML Syringe IVPUSH PRN (19:31)
--- NOTE | 2019-09-12 19:32 | PCM.HP.2 ---
H&P History of Present Illness - General Date of Service: 09/12/19 Admit Problem/Dx: Admission Diagnosis/Problem Admission Diagnosis/Problem Abdominal pain Source of Information: Patient History Limitations: Reports: No Limitations - History of Present Illness Initial Comments - Free Text/Narative: Patient is a 19 y.o female w. significant medical history of ulcerative colitis s/p colectomy w. colostomy bag in-situ, hx. of repeated c.difficile infections; presenting today for abdominal pain w. episodes of non-bloody vomitus since last night. pt. mentions abdominal pain began around 8 pm last night and lasted throughout the night and into the AM. Mentions pain worsens with food and movement. Denies any recent spicy foods, ETOH, tobacco abuse or other obvious causes. Colectomy performed on August 20 at [facility] ; colectomy w. colostomy placed. Placed on high-dose prednisone taper; currently on week 3 of steroids. Was told she will not require any further Remicade and or Humira infusion any further. ED course: pt. was given a liter bolus of 1 l NS+morphine and Bentyl for pain control CT abdomen pelvis did not show any acute processes Bedside: no new additional information; mentions pain is improving w. current regimen abd Pain Score (Numeric/FACES): 10 - Related Data Allergies/Adverse Reactions: Allergies Allergy/AdvReac Type Severity Reaction Status Date / Time No Known Allergies Allergy Verified 09/12/19 20:33 Home Medications: Home Meds predniSONE [Prednisone] 10 - 40 mg PO DAILY #82 tablet 07/31/19 [Rx] Magnesium 1 tab PO ASDIRECTED 08/09/19 [History] Ondansetron [Zofran] 4 mg PO ASDIRECTED PRN 08/09/19 [History] Enoxaparin [Lovenox] 30 mg SUBCUT DAILY 09/12/19 [History] Past Medical History - Past Health History Medical/Surgical History: Denies Medical/Surgical History HEENT History: Reports: Other (See Below) Other HEENT History: tonsillitis Cardiovascular History: Reports: None Respiratory History: Reports: None Gastrointestinal History: Reports: Chronic Diarrhea, Inflammatory Bowel Disease, Other (See Below) Other Gastrointestinal History: History of Ulcerative Colitis, colectomy 2020 Genitourinary History: Reports: None ROAD CONDUCTOR History: Reports: Other (See Below) Other OB/BYN History: Bacterial vaginitis, yeast infection Musculoskeletal History: Reports: None Neurological History: Reports: None Psychiatric History: Reports: ADHD Endocrine/Metabolic History: Reports: None Insulin Pump Model and Oyster Worker: N/A Hematologic History: Reports: Anemia, Other (See Below) Other Hematologic History: Blood Transfussions 2018 Immunologic History: Reports: None Oncologic (Cancer) History: Reports: None Dermatologic History: Reports: None - Infectious Disease History Infectious Disease History: Reports: None - Past Surgical History Head Surgeries/Procedures: Reports: None Cardiovascular Surgical History: Reports: None GI Surgical History: Reports: Colonoscopy, Other (See Below) Other GI Surgeries/Procedures: Fecal transplant Female Surgical History: Reports: None Social & Family History - Family History Family Medical History: Noncontributory - Tobacco Use Smoking Status *Q: Never Smoker - Caffeine Use Caffeine Use: Reports: None Other Caffeine Use: seldom H&P Review of Systems - Review of Systems: Review Of Systems: See Below General: Denies: Fever, Chills, Malaise, Weakness, Fatigue HEENT: Reports: No Symptoms Pulmonary: Reports: No Symptoms Cardiovascular: Reports: No Symptoms Gastrointestinal: Reports: Abdominal Pain, Decreased Appetite, Nausea. Denies: Black Stool, Constipation, Diarrhea Genitourinary: Denies: Dysuria, Frequency, Burning, Urgency Musculoskeletal: Reports: No Symptoms Skin: Reports: No Symptoms Psychiatric: Reports: No Symptoms Neurological: Reports: No Symptoms. Denies: Headache Exam - Exam Exam: See Below - Vital Signs Vital Signs: Last Vital Signs Temp 97.3 F 09/12/19 14:32 Pulse 98 09/12/19 18:40 Resp 16 09/12/19 18:40 BP 128/75 09/12/19 18:40 Pulse Ox 98 09/12/19 18:40 Weight: 46.266 kg - Exam General: Alert, Oriented HEENT: EOMI Neck: Supple, Trachea Midline Lungs: Clear to Auscultation, Normal Respiratory Effort Cardiovascular: Regular Rate, Regular Rhythm GI/Abdominal Exam: Other (diffuse abdominal tenderness; no rebound tenderness, mild right flank tenderness. colostomy bag in-situ; no blood in bag; loose stooles appreciated ) Extremities: Normal Range of Motion, Non-Tender Skin: Warm, Dry Neurological: Cranial Nerves Intact Neuro Extensive - Mental Status: Alert, Normal Mood/Affect - Patient Data Lab Results Last 24 hrs: Laboratory Results - last 24 hr 09/12/19 09/12/19 09/12/19 Range/Units 15:00 15:00 16:00 WBC 13.74 H (4.0-11.0) K/uL RBC 4.69 (4.30-5.90) M/uL Hgb 11.2 L (12.0-16.0) g/dL Hct 37.4 (36.0-46.0) % MCV 79.7 L (80.0-98.0) fL MCH 23.9 L (27.0-32.0) pg MCHC 29.9 L (31.0-37.0) g/dL RDW Std Deviation 51.3 (28.0-62.0) fl RDW Coeff of Buck 17 H (11.0-15.0) % Plt Count 420 H (150-400) K/uL MPV 9.40 (7.40-12.00) fL Neut % (Auto) 88.4 H (48.0-80.0) % Lymph % (Auto) 8.6 L (16.0-40.0) % Smith % (Auto) 2.9 (0.0-15.0) % Eos % (Auto) 0.0 (0.0-7.0) % Baso % (Auto) 0.1 (0.0-1.5) % Neut # (Auto) 12.1 H (1.4-5.7) K/uL Lymph # (Auto) 1.2 (0.6-2.4) K/uL Smith # (Auto) 0.4 (0.0-0.8) K/uL Eos # (Auto) 0.0 (0.0-0.7) K/uL Baso # (Auto) 0.0 (0.0-0.1) K/uL Nucleated RBC % 0.0 /100WBC Nucleated RBCs # 0 K/uL Sodium 143 (136-145) mmol/L Potassium 3.6 (3.5-5.1) mmol/L Chloride 106 (98-107) mmol/L Carbon Dioxide 23.9 (21.0-32.0) mmol/L BUN 7 (7.0-18.0) mg/dL Creatinine 0.8 (0.6-1.0) mg/dL Est Cr Clr Drug Dosing 81.25 mL/min Estimated GFR (MDRD) > 60.0 ml/min Glucose 128 H (74-106) mg/dL Calcium 9.3 (8.5-10.1) mg/dL Total Bilirubin 0.2 (0.2-1.0) mg/dL AST 16 (15-37) IU/L ALT 30 (14-63) IU/L Alkaline Phosphatase 63 (46-116) U/L Total Protein 7.4 (6.4-8.2) g/dL Albumin 4.0 (3.4-5.0) g/dL Globulin 3.4 (2.6-4.0) g/dL Albumin/Globulin Ratio 1.2 (0.9-1.6) Lipase 98 (73-393) U/L Urine Color YELLOW Urine Appearance CLEAR Urine pH 7.0 (5.0-8.0) Ur Specific [place] 1.020 (1.001-1.035) Urine Protein NEGATIVE (NEGATIVE) mg/dL Urine Glucose (UA) NEGATIVE (NEGATIVE) mg/dL Urine Ketones NEGATIVE (NEGATIVE) mg/dL Urine Occult Blood TRACE-INTACT H (NEGATIVE) Urine Nitrite NEGATIVE (NEGATIVE) Urine Bilirubin NEGATIVE (NEGATIVE) Urine Urobilinogen 0.2 (<2.0) EU/dL Ur Leukocyte Esterase NEGATIVE (NEGATIVE) Urine RBC 2-4 (0-2/HPF) Urine WBC 0-1 (0-5/HPF) Ur Epithelial Cells RARE (NONE-FEW) Urine Bacteria RARE (NEGATIVE) Urine HCG, Qual (NEGATIVE) SARS-CoV-2 RNA (RT-PCR) (NEGATIVE) 09/12/19 09/12/19 Range/Units 16:00 18:50 WBC (4.0-11.0) K/uL RBC (4.30-5.90) M/uL Hgb (12.0-16.0) g/dL Hct (36.0-46.0) % MCV (80.0-98.0) fL MCH (27.0-32.0) pg MCHC (31.0-37.0) g/dL RDW Std Deviation (28.0-62.0) fl RDW Coeff of Buck (11.0-15.0) % Plt Count (150-400) K/uL MPV (7.40-12.00) fL Neut % (Auto) (48.0-80.0) % Lymph % (Auto) (16.0-40.0) % Smith % (Auto) (0.0-15.0) % Eos % (Auto) (0.0-7.0) % Baso % (Auto) (0.0-1.5) % Neut # (Auto) (1.4-5.7) K/uL Lymph # (Auto) (0.6-2.4) K/uL Smith # (Auto) (0.0-0.8) K/uL Eos # (Auto) (0.0-0.7) K/uL Baso # (Auto) (0.0-0.1) K/uL Nucleated RBC % /100WBC Nucleated RBCs # K/uL Sodium (136-145) mmol/L Potassium (3.5-5.1) mmol/L Chloride (98-107) mmol/L Carbon Dioxide (21.0-32.0) mmol/L BUN (7.0-18.0) mg/dL Creatinine (0.6-1.0) mg/dL Est Cr Clr Drug Dosing mL/min Estimated GFR (MDRD) ml/min Glucose (74-106) mg/dL Calcium (8.5-10.1) mg/dL Total Bilirubin (0.2-1.0) mg/dL AST (15-37) IU/L ALT (14-63) IU/L Alkaline Phosphatase (46-116) U/L Total Protein (6.4-8.2) g/dL Albumin (3.4-5.0) g/dL Globulin (2.6-4.0) g/dL Albumin/Globulin Ratio (0.9-1.6) Lipase (73-393) U/L Urine Color Urine Appearance Urine pH (5.0-8.0) Ur Specific [place] (1.001-1.035) Urine Protein (NEGATIVE) mg/dL Urine Glucose (UA) (NEGATIVE) mg/dL Urine Ketones (NEGATIVE) mg/dL Urine Occult Blood (NEGATIVE) Urine Nitrite (NEGATIVE) Urine Bilirubin (NEGATIVE) Urine Urobilinogen (<2.0) EU/dL Ur Leukocyte Esterase (NEGATIVE) Urine RBC (0-2/HPF) Urine WBC (0-5/HPF) Ur Epithelial Cells (NONE-FEW) Urine Bacteria (NEGATIVE) Urine HCG, Qual NEGATIVE (NEGATIVE) SARS-CoV-2 RNA (RT-PCR) NEGATIVE (NEGATIVE) Result Diagrams: 09/13/19 05:58 09/13/19 05:58 Sepsis Event Note - Evaluation Sepsis Screening Result: No Definite Risk - Focused Exam Vital Signs: Vital Signs Temp Pulse Resp BP Pulse Ox 09/12/19 18:40 98 16 128/75 98 09/12/19 17:13 98 16 120/68 98 09/12/19 14:32 97.3 F 117 H 16 118/73 100 Date Exam was Performed: 09/13/19 Time Exam was Performed: 09:01 Problem List Initiated/Reviewed/Updated: Yes Orders Last 24hrs: Active Orders 24 hr Category Date Time Status Patient Status [ADT] Routine ADT 09/12/19 18:03 Active Antiembolic Devices [RC] PER UNIT ROUTINE Care 09/12/19 19:04 Active Intake and Output [RC] ASDIRECTED Care 09/12/19 19:04 Active NPO [Nothing Per Oral Diet] [DIET] Diet 09/13/19 Breakfast Active HYDROmorphone [Dilaudid] Med 09/12/19 19:31 Ordered 0.5 mg IVPUSH Q1H PRN Morphine Med 09/12/19 16:27 Active 4 mg IVPUSH Q2H PRN Ondansetron [Zofran] Med 09/12/19 19:30 Ordered 4 mg IVPUSH Q4H PRN Sodium Chloride 0.9% [Saline Flush] Med 09/12/19 14:41 Active 10 ml FLUSH ASDIRECTED PRN Sodium Chloride 0.9% [Saline Flush] Med 09/12/19 14:41 Active 2.5 ml FLUSH ASDIRECTED PRN predniSONE Med 09/13/19 09:00 Ordered 10 - 40 mg PO DAILY SCD [Sequential Compression Device] [OM.PC] Routine Oth 09/12/19 19:04 Ordered Saline Lock Insert [OM.PC] Stat Oth 09/12/19 14:41 Ordered Code Status [Resuscitation Status] Routine Resus Stat 09/12/19 19:01 Ordered Medication Orders Morphine Sulfate (Morphine) 4 mg IVPUSH Q2H PRN PRN Reason: Pain (moderate 4-6) Last Admin: 09/12/19 16:34 Dose: 4 mg Documented by: [email or web address] Ondansetron HCl (Zofran) 4 mg IVPUSH Q4H PRN PRN Reason: Nausea Prednisone (Prednisone) 10 - 40 mg PO DAILY DONNIE Sodium Chloride (Saline Flush) 10 ml FLUSH ASDIRECTED PRN PRN Reason: Keep Vein Open Last Admin: 09/12/19 14:50 Dose: 10 ml Documented by: [id number] Sodium Chloride (Saline Flush) 2.5 ml FLUSH ASDIRECTED PRN PRN Reason: Keep Vein Open Last Admin: 09/12/19 14:50 Dose: 2.5 ml Documented by: [id number] Assessment/Plan Comment:: Assessment: 1. Abdominal pain in setting of ulcerative colitis s/p colectomy w. colostomy in-situ 2. 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 Full code. NPO. I/o's per routine. up ad aniya 1. Abdominal pain: continue pain control w. Morphine and Dilaudid for now; will consult surgery for recommendations considering recent colostomy bag placement on Aug 21 2019. Continue NPO will consider advancing once cleared by Surgery. Continue Zosyn as initiated. 2. Continue steroids per home dosing. 3, Some concerns regarding pyelonephritis and trace blood in UA; will get further clarifications regarding imaging; Ucx ordered. LMP: 1 month prior
[2019-09-12] MEDS: Ondansetron 4 MG/2 ML SDV IVPUSH PRN (20:06)
--- NOTE | 2019-09-12 20:45 | PCM.CONS ---
H&P History of Present Illness - General Date of Service: 09/12/19 Admit Problem/Dx: Admission Diagnosis/Problem Admission Diagnosis/Problem Abdominal pain Source of Information: Patient History Limitations: Reports: No Limitations - History of Present Illness Initial Comments - Free Text/Narative: Patient is a 19 year old female who presented to the ER with abdominal pain. Her past medical history is significant for severe ulcerative colitis. She underwent a laparoscopic total colectomy and end ileostomy last month. Last night she developed generalized abdominal pain. She is c/o epigastric pain and LLQ pain. It was constant. It was worse with movement. She is still having ostomy output and denies melena or hematochezia. She denies fevers and chills. She is currently on a steroid taper. She presented to the ER. She was slightly tachycardic. She was given IV pain meds and fluids. Her tachycardia resolved and her pain became more intermittent. Her WBC was slightly elevated. abd Pain Score (Numeric/FACES): 10 - Related Data Allergies/Adverse Reactions: Allergies Allergy/AdvReac Type Severity Reaction Status Date / Time No Known Allergies Allergy Verified 09/12/19 20:33 Home Medications: Home Meds predniSONE [Prednisone] 10 - 40 mg PO DAILY #82 tablet 07/31/19 [Rx] Magnesium 1 tab PO ASDIRECTED 08/09/19 [History] Ondansetron [Zofran] 4 mg PO ASDIRECTED PRN 08/09/19 [History] Enoxaparin [Lovenox] 30 mg SUBCUT DAILY 09/12/19 [History] Past Medical History - Past Health History Medical/Surgical History: Denies Medical/Surgical History HEENT History: Reports: Other (See Below) Other HEENT History: tonsillitis Cardiovascular History: Reports: None Respiratory History: Reports: None Gastrointestinal History: Reports: Chronic Diarrhea, Inflammatory Bowel Disease, Other (See Below) Other Gastrointestinal History: History of Ulcerative Colitis, colectomy 2020 Genitourinary History: Reports: None DIRECTOR OF EDUCATION History: Reports: Other (See Below) Other OB/BYN History: Bacterial vaginitis, yeast infection Musculoskeletal History: Reports: None Neurological History: Reports: None Psychiatric History: Reports: ADHD Endocrine/Metabolic History: Reports: None Insulin Pump Model and Electrical Maintenance Technician: N/A Hematologic History: Reports: Anemia, Other (See Below) Other Hematologic History: Blood Transfussions 2018 Immunologic History: Reports: None Oncologic (Cancer) History: Reports: None Dermatologic History: Reports: None - Infectious Disease History Infectious Disease History: Reports: None - Past Surgical History Head Surgeries/Procedures: Reports: None Cardiovascular Surgical History: Reports: None GI Surgical History: Reports: Colonoscopy, Other (See Below) Other GI Surgeries/Procedures: Fecal transplant Female Surgical History: Reports: None Social & Family History - Family History Family Medical History: Noncontributory - Tobacco Use Smoking Status *Q: Never Smoker - Caffeine Use Caffeine Use: Reports: None Other Caffeine Use: seldom H&P Review of Systems - Review of Systems: Review Of Systems: Comprehensive ROS is negative, except as noted in HPI. Exam - Exam Exam: See Below - Vital Signs Vital Signs: Last Vital Signs Temp 36.3 C 09/12/19 14:32 Pulse 76 09/12/19 20:04 Resp 16 09/12/19 20:04 BP 128/80 09/12/19 20:04 Pulse Ox 100 09/12/19 20:04 Weight: 46.266 kg - Exam Quality Assessment: Supplemental Oxygen General: Alert, Oriented HEENT: Conjunctiva Clear, Mucosa Moist & [place], Posterior Pharynx Clear Lungs: Normal Respiratory Effort Cardiovascular: Regular Rate GI/Abdominal Exam: Soft, No Distention, Other (No epigastric tenderness with palpation. LLQ tenderness with palpation. Not rigid or rebound. Guarding. Stoma appears pink healthy and ostomy bag is full of normal stool) Back Exam: No: CVA Tenderness (L), CVA Tenderness (R) Extremities: Normal Inspection Neuro Extensive - Mental Status: Alert, Oriented x3 - Patient Data Lab Results Last 24 hrs: Laboratory Results - last 24 hr 09/12/19 09/12/19 09/12/19 Range/Units 15:00 15:00 16:00 WBC 13.74 H (4.0-11.0) K/uL RBC 4.69 (4.30-5.90) M/uL Hgb 11.2 L (12.0-16.0) g/dL Hct 37.4 (36.0-46.0) % MCV 79.7 L (80.0-98.0) fL MCH 23.9 L (27.0-32.0) pg MCHC 29.9 L (31.0-37.0) g/dL RDW Std Deviation 51.3 (28.0-62.0) fl RDW Coeff of Buck 17 H (11.0-15.0) % Plt Count 420 H (150-400) K/uL MPV 9.40 (7.40-12.00) fL Neut % (Auto) 88.4 H (48.0-80.0) % Lymph % (Auto) 8.6 L (16.0-40.0) % Hill % (Auto) 2.9 (0.0-15.0) % Eos % (Auto) 0.0 (0.0-7.0) % Baso % (Auto) 0.1 (0.0-1.5) % Neut # (Auto) 12.1 H (1.4-5.7) K/uL Lymph # (Auto) 1.2 (0.6-2.4) K/uL Hill # (Auto) 0.4 (0.0-0.8) K/uL Eos # (Auto) 0.0 (0.0-0.7) K/uL Baso # (Auto) 0.0 (0.0-0.1) K/uL Nucleated RBC % 0.0 /100WBC Nucleated RBCs # 0 K/uL Sodium 143 (136-145) mmol/L Potassium 3.6 (3.5-5.1) mmol/L Chloride 106 (98-107) mmol/L Carbon Dioxide 23.9 (21.0-32.0) mmol/L BUN 7 (7.0-18.0) mg/dL Creatinine 0.8 (0.6-1.0) mg/dL Est Cr Clr Drug Dosing 81.25 mL/min Estimated GFR (MDRD) > 60.0 ml/min Glucose 128 H (74-106) mg/dL Calcium 9.3 (8.5-10.1) mg/dL Total Bilirubin 0.2 (0.2-1.0) mg/dL AST 16 (15-37) IU/L ALT 30 (14-63) IU/L Alkaline Phosphatase 63 (46-116) U/L Total Protein 7.4 (6.4-8.2) g/dL Albumin 4.0 (3.4-5.0) g/dL Globulin 3.4 (2.6-4.0) g/dL Albumin/Globulin Ratio 1.2 (0.9-1.6) Lipase 98 (73-393) U/L Urine Color YELLOW Urine Appearance CLEAR Urine pH 7.0 (5.0-8.0) Ur Specific [place] 1.020 (1.001-1.035) Urine Protein NEGATIVE (NEGATIVE) mg/dL Urine Glucose (UA) NEGATIVE (NEGATIVE) mg/dL Urine Ketones NEGATIVE (NEGATIVE) mg/dL Urine Occult Blood TRACE-INTACT H (NEGATIVE) Urine Nitrite NEGATIVE (NEGATIVE) Urine Bilirubin NEGATIVE (NEGATIVE) Urine Urobilinogen 0.2 (<2.0) EU/dL Ur Leukocyte Esterase NEGATIVE (NEGATIVE) Urine RBC 2-4 (0-2/HPF) Urine WBC 0-1 (0-5/HPF) Ur Epithelial Cells RARE (NONE-FEW) Urine Bacteria RARE (NEGATIVE) Urine HCG, Qual (NEGATIVE) SARS-CoV-2 RNA (RT-PCR) (NEGATIVE) 09/12/19 09/12/19 Range/Units 16:00 18:50 WBC (4.0-11.0) K/uL RBC (4.30-5.90) M/uL Hgb (12.0-16.0) g/dL Hct (36.0-46.0) % MCV (80.0-98.0) fL MCH (27.0-32.0) pg MCHC (31.0-37.0) g/dL RDW Std Deviation (28.0-62.0) fl RDW Coeff of Buck (11.0-15.0) % Plt Count (150-400) K/uL MPV (7.40-12.00) fL Neut % (Auto) (48.0-80.0) % Lymph % (Auto) (16.0-40.0) % Hill % (Auto) (0.0-15.0) % Eos % (Auto) (0.0-7.0) % Baso % (Auto) (0.0-1.5) % Neut # (Auto) (1.4-5.7) K/uL Lymph # (Auto) (0.6-2.4) K/uL Hill # (Auto) (0.0-0.8) K/uL Eos # (Auto) (0.0-0.7) K/uL Baso # (Auto) (0.0-0.1) K/uL Nucleated RBC % /100WBC Nucleated RBCs # K/uL Sodium (136-145) mmol/L Potassium (3.5-5.1) mmol/L Chloride (98-107) mmol/L Carbon Dioxide (21.0-32.0) mmol/L BUN (7.0-18.0) mg/dL Creatinine (0.6-1.0) mg/dL Est Cr Clr Drug Dosing mL/min Estimated GFR (MDRD) ml/min Glucose (74-106) mg/dL Calcium (8.5-10.1) mg/dL Total Bilirubin (0.2-1.0) mg/dL AST (15-37) IU/L ALT (14-63) IU/L Alkaline Phosphatase (46-116) U/L Total Protein (6.4-8.2) g/dL Albumin (3.4-5.0) g/dL Globulin (2.6-4.0) g/dL Albumin/Globulin Ratio (0.9-1.6) Lipase (73-393) U/L Urine Color Urine Appearance Urine pH (5.0-8.0) Ur Specific [place] (1.001-1.035) Urine Protein (NEGATIVE) mg/dL Urine Glucose (UA) (NEGATIVE) mg/dL Urine Ketones (NEGATIVE) mg/dL Urine Occult Blood (NEGATIVE) Urine Nitrite (NEGATIVE) Urine Bilirubin (NEGATIVE) Urine Urobilinogen (<2.0) EU/dL Ur Leukocyte Esterase (NEGATIVE) Urine RBC (0-2/HPF) Urine WBC (0-5/HPF) Ur Epithelial Cells (NONE-FEW) Urine Bacteria (NEGATIVE) Urine HCG, Qual NEGATIVE (NEGATIVE) SARS-CoV-2 RNA (RT-PCR) NEGATIVE (NEGATIVE) Result Diagrams: 09/12/19 15:00 09/12/19 15:00 Sepsis Event Note - Evaluation Sepsis Screening Result: No Definite Risk - Focused Exam Vital Signs: Vital Signs Temp Pulse Resp BP Pulse Ox 09/12/19 20:04 76 16 128/80 100 09/12/19 18:40 98 16 128/75 98 09/12/19 18:00 93 16 110/67 98 09/12/19 17:13 98 16 120/68 98 09/12/19 16:00 92 16 119/77 98 09/12/19 15:00 120 H 16 118/73 98 09/12/19 14:32 36.3 C 117 H 16 118/73 100 Date Exam was Performed: 09/12/19 Time Exam was Performed: 20:48 Consult PN Assessment/Plan Procedures: Procedures AGENT NOS ASSAY W/OPTIC (02/08/19) ALANINE AMINO (ALT) (SGPT) (02/08/19) ASSAY ALKALINE PHOSPHATASE (02/08/19) ASSAY OF LACTIC ACID (06/20/19) ASSAY OF MAGNESIUM (06/20/19) ASSAY OF PHOSPHORUS (02/08/19) ASSAY OF TROPONIN QUANT (02/08/19) BLOOD CULTURE FOR BACTERIA (02/08/19) C-REACTIVE PROTEIN (02/08/19) CHORIONIC GONADOTROPIN ASSAY (05/19/19) CLOSTRIDIUM AG IA (02/08/19) COMPLETE CBC W/AUTO DIFF WBC (06/20/19) COMPREHEN METABOLIC PANEL (06/20/19) CRYPTOSPORIDIUM AG IA (02/08/19) CT ABD & PELV W/CONTRAST (05/19/19) CULTURE SCREEN ONLY (05/16/19) EMERGENCY DEPT VISIT (06/20/19) EMERGENCY DEPT VISIT (05/19/19) EMERGENCY DEPT VISIT (05/16/19) EMERGENCY DEPT VISIT (02/08/19) EMERGENCY DEPT VISIT (05/13/18) GIARDIA AG IA (02/08/19) HEMOGLOBIN (02/08/19) HYDRATE IV INFUSION ADD-ON (06/20/19) HYDRATION IV INFUSION INIT (02/08/19) INFLUENZA ASSAY W/OPTIC (05/16/19) METABOLIC PANEL TOTAL CA (02/08/19) PROTHROMBIN TIME (06/20/19) ROUTINE VENIPUNCTURE (06/20/19) STOOL CULTR AEROBIC BACT EA (02/08/19) STREP A ASSAY W/OPTIC (05/16/19) THER/PROPH/DIAG INJ IV PUSH (05/19/19) THER/PROPH/DIAG IV INF INIT (06/20/19) TRANSFERASE (AST) (SGOT) (02/08/19) TX/PRO/DX INJ NEW DRUG ADDON (06/20/19) URINALYSIS AUTO W/SCOPE (05/19/19) URINE TEST (02/08/19) (1) Nephritis SNOMED Code(s): 75178193 Code(s): N05.9 - UNSP NEPHRITIC SYNDROME WITH UNSPECIFIED MORPHOLOGIC CHANGES Current Visit: Yes (2) Abdominal pain SNOMED Code(s): 59640551 Code(s): R10.9 - UNSPECIFIED ABDOMINAL PAIN Current Visit: Yes Problem List Initiated/Reviewed/Updated: Yes Plan: I reviewed the CT scan. I agree that there are areas of decreased enhancement of the right kidney. I noticed a fluid filled structure in the LLQ. I called [facility] to discuss these findings. They believe this could be an ovarian cyst or po tentially a torsed ovary. Pelvic US was ordered. From my standpoint, there are no surgical issues. Will sign off at this time. Please call with any questions.
[2019-09-12] MEDS: Enoxaparin 30 MG/0.3 ML Syringe SUBCUT SCH (21:54)
[2019-09-12] MEDS: Calcium Carbonate 500 MG Tab.Chew PO PRN (21:55)
--- NOTE | 2019-09-12 22:38 | US ---
Pelvic ultrasound: Multiple real-time images were obtained transvaginally of the pelvis. Comparison: Previous pelvic ultrasound is not available. Uterus is retroverted. Endometrial thickness is normal at 1.0 cm. No myometrial abnormality is appreciated. Follicles are seen within the ovaries. No free fluid is seen. Measurements: Uterus: Length 6.3 cm, AP height 2.9 cm, transverse width 3.9 cm Right ovary: 2.3 x 2.0 x 2.0 cm Left ovary: 2.7 x 3.1 x 1.9 cm Impression: 1. No abnormality is appreciated on pelvic ultrasound study. Diagnostic code #1 Study was dictated in MDT
[2019-09-13] MEDS: Morphine 4 MG/ML Syringe IVPUSH PRN ×2 (02:15→05:42)
[2019-09-13 06:37] LABS: BLOOD UREA NITROGEN,BUN 4 mg/dL (7.0-18.0); CARBON DIOXIDE,CO2 27.8 mmol/L (21.0-32.0); CHLORIDE,CL 105 mmol/L (98-107); GLUCOSE RANDOM 75 mg/dL (74-106); POTASSIUM,K 3.8 mmol/L (3.5-5.1); SODIUM,NA 139 mmol/L (136-145)
[2019-09-13] MEDS: Omeprazole 20 MG Cap.CR PO SCH ×2 (06:44→17:05)
[2019-09-13] MEDS ORDERED: Morphine 2 MG/ML Syringe IVPUSH PRN (08:50)
[2019-09-13] MEDS: predniSONE 10 MG Tab PO SCH (09:05)
[2019-09-13] MEDS ORDERED: Sodium Chloride 0.9% 1,000 ML IV ONE ×2 (11:24→18:34)
[2019-09-13] MEDS: Acetaminophen/Codeine 300-30 MG Tab PO PRN ×2 (11:31→18:17)
--- NOTE | 2019-09-13 11:54 | PCM.PN ---
- General Info Date of Service: 09/13/19 Subjective Update: Mentions some discomfort in abdomen; increasing nausea with advancing diet. Functional Status: Reports: Pain Controlled - Review of Systems General: Reports: No Symptoms Pulmonary: Reports: No Symptoms Cardiovascular: Reports: No Symptoms Gastrointestinal: Reports: Abdominal Pain, Decreased Appetite, Nausea. Denies: Constipation, Diarrhea, Vomiting Genitourinary: Reports: Burning. Denies: Pain, Urgency, Incontinence, Hematuria Musculoskeletal: Reports: No Symptoms Skin: Reports: No Symptoms Neurological: Reports: No Symptoms Psychiatric: Reports: No Symptoms - Patient Data Vitals - Most Recent: Last Vital Signs Temp 97.2 F 09/13/19 08:07 Pulse 88 09/13/19 08:07 Resp 14 09/13/19 08:07 BP 115/72 09/13/19 08:07 Pulse Ox 100 09/13/19 08:07 Weight - Most Recent: 46.266 kg I&O - Last 24 Hours: Intake & Output 09/12/19 09/13/19 09/13/19 22:59 06:59 14:59 Intake Total 787 Output Total 300 Balance 487 Lab Results Last 24 Hours: Laboratory Results - last 24 hr 09/12/19 09/12/19 09/12/19 Range/Units 15:00 15:00 16:00 WBC 13.74 H (4.0-11.0) K/uL RBC 4.69 (4.30-5.90) M/uL Hgb 11.2 L (12.0-16.0) g/dL Hct 37.4 (36.0-46.0) % MCV 79.7 L (80.0-98.0) fL MCH 23.9 L (27.0-32.0) pg MCHC 29.9 L (31.0-37.0) g/dL RDW Std Deviation 51.3 (28.0-62.0) fl RDW Coeff of Buck 17 H (11.0-15.0) % Plt Count 420 H (150-400) K/uL MPV 9.40 (7.40-12.00) fL Neut % (Auto) 88.4 H (48.0-80.0) % Lymph % (Auto) 8.6 L (16.0-40.0) % [place] % (Auto) 2.9 (0.0-15.0) % Eos % (Auto) 0.0 (0.0-7.0) % Baso % (Auto) 0.1 (0.0-1.5) % Neut # (Auto) 12.1 H (1.4-5.7) K/uL Lymph # (Auto) 1.2 (0.6-2.4) K/uL [place] # (Auto) 0.4 (0.0-0.8) K/uL Eos # (Auto) 0.0 (0.0-0.7) K/uL Baso # (Auto) 0.0 (0.0-0.1) K/uL Nucleated RBC % 0.0 /100WBC Nucleated RBCs # 0 K/uL Sodium 143 (136-145) mmol/L Potassium 3.6 (3.5-5.1) mmol/L Chloride 106 (98-107) mmol/L Carbon Dioxide 23.9 (21.0-32.0) mmol/L BUN 7 (7.0-18.0) mg/dL Creatinine 0.8 (0.6-1.0) mg/dL Est Cr Clr Drug Dosing 81.25 mL/min Estimated GFR (MDRD) > 60.0 ml/min Glucose 128 H (74-106) mg/dL Calcium 9.3 (8.5-10.1) mg/dL Total Bilirubin 0.2 (0.2-1.0) mg/dL AST 16 (15-37) IU/L ALT 30 (14-63) IU/L Alkaline Phosphatase 63 (46-116) U/L Total Protein 7.4 (6.4-8.2) g/dL Albumin 4.0 (3.4-5.0) g/dL Globulin 3.4 (2.6-4.0) g/dL Albumin/Globulin Ratio 1.2 (0.9-1.6) Lipase 98 (73-393) U/L Urine Color YELLOW Urine Appearance CLEAR Urine pH 7.0 (5.0-8.0) Ur Specific [place] 1.020 (1.001-1.035) Urine Protein NEGATIVE (NEGATIVE) mg/dL Urine Glucose (UA) NEGATIVE (NEGATIVE) mg/dL Urine Ketones NEGATIVE (NEGATIVE) mg/dL Urine Occult Blood TRACE-INTACT H (NEGATIVE) Urine Nitrite NEGATIVE (NEGATIVE) Urine Bilirubin NEGATIVE (NEGATIVE) Urine Urobilinogen 0.2 (<2.0) EU/dL Ur Leukocyte Esterase NEGATIVE (NEGATIVE) Urine RBC 2-4 (0-2/HPF) Urine WBC 0-1 (0-5/HPF) Ur Epithelial Cells RARE (NONE-FEW) Urine Bacteria RARE (NEGATIVE) Urine HCG, Qual (NEGATIVE) SARS-CoV-2 RNA (RT-PCR) (NEGATIVE) 09/12/19 09/12/19 09/13/19 Range/Units 16:00 18:50 05:58 WBC 11.93 H (4.0-11.0) K/uL RBC 4.05 L (4.30-5.90) M/uL Hgb 9.6 L (12.0-16.0) g/dL Hct 32.4 L (36.0-46.0) % MCV 80.0 (80.0-98.0) fL MCH 23.7 L (27.0-32.0) pg MCHC 29.6 L (31.0-37.0) g/dL RDW Std Deviation 51.3 (28.0-62.0) fl RDW Coeff of Buck 17 H (11.0-15.0) % Plt Count 383 (150-400) K/uL MPV 8.90 (7.40-12.00) fL Neut % (Auto) 56.6 (48.0-80.0) % Lymph % (Auto) 33.8 (16.0-40.0) % [place] % (Auto) 8.5 (0.0-15.0) % Eos % (Auto) 0.8 (0.0-7.0) % Baso % (Auto) 0.3 (0.0-1.5) % Neut # (Auto) 6.8 H (1.4-5.7) K/uL Lymph # (Auto) 4.0 H (0.6-2.4) K/uL [place] # (Auto) 1.0 H (0.0-0.8) K/uL Eos # (Auto) 0.1 (0.0-0.7) K/uL Baso # (Auto) 0.0 (0.0-0.1) K/uL Nucleated RBC % 0.0 /100WBC Nucleated RBCs # 0 K/uL Sodium (136-145) mmol/L Potassium (3.5-5.1) mmol/L Chloride (98-107) mmol/L Carbon Dioxide (21.0-32.0) mmol/L BUN (7.0-18.0) mg/dL Creatinine (0.6-1.0) mg/dL Est Cr Clr Drug Dosing mL/min Estimated GFR (MDRD) ml/min Glucose (74-106) mg/dL Calcium (8.5-10.1) mg/dL Total Bilirubin (0.2-1.0) mg/dL AST (15-37) IU/L ALT (14-63) IU/L Alkaline Phosphatase (46-116) U/L Total Protein (6.4-8.2) g/dL Albumin (3.4-5.0) g/dL Globulin (2.6-4.0) g/dL Albumin/Globulin Ratio (0.9-1.6) Lipase (73-393) U/L Urine Color Urine Appearance Urine pH (5.0-8.0) Ur Specific [place] (1.001-1.035) Urine Protein (NEGATIVE) mg/dL Urine Glucose (UA) (NEGATIVE) mg/dL Urine Ketones (NEGATIVE) mg/dL Urine Occult Blood (NEGATIVE) Urine Nitrite (NEGATIVE) Urine Bilirubin (NEGATIVE) Urine Urobilinogen (<2.0) EU/dL Ur Leukocyte Esterase (NEGATIVE) Urine RBC (0-2/HPF) Urine WBC (0-5/HPF) Ur Epithelial Cells (NONE-FEW) Urine Bacteria (NEGATIVE) Urine HCG, Qual NEGATIVE (NEGATIVE) SARS-CoV-2 RNA (RT-PCR) NEGATIVE (NEGATIVE) 09/13/19 Range/Units 05:58 WBC (4.0-11.0) K/uL RBC (4.30-5.90) M/uL Hgb (12.0-16.0) g/dL Hct (36.0-46.0) % MCV (80.0-98.0) fL MCH (27.0-32.0) pg MCHC (31.0-37.0) g/dL RDW Std Deviation (28.0-62.0) fl RDW Coeff of Buck (11.0-15.0) % Plt Count (150-400) K/uL MPV (7.40-12.00) fL Neut % (Auto) (48.0-80.0) % Lymph % (Auto) (16.0-40.0) % [place] % (Auto) (0.0-15.0) % Eos % (Auto) (0.0-7.0) % Baso % (Auto) (0.0-1.5) % Neut # (Auto) (1.4-5.7) K/uL Lymph # (Auto) (0.6-2.4) K/uL [place] # (Auto) (0.0-0.8) K/uL Eos # (Auto) (0.0-0.7) K/uL Baso # (Auto) (0.0-0.1) K/uL Nucleated RBC % /100WBC Nucleated RBCs # K/uL Sodium 139 (136-145) mmol/L Potassium 3.8 (3.5-5.1) mmol/L Chloride 105 (98-107) mmol/L Carbon Dioxide 27.8 (21.0-32.0) mmol/L BUN 4 L (7.0-18.0) mg/dL Creatinine 0.8 (0.6-1.0) mg/dL Est Cr Clr Drug Dosing 81.25 mL/min Estimated GFR (MDRD) > 60.0 ml/min Glucose 75 (74-106) mg/dL Calcium 8.5 (8.5-10.1) mg/dL Total Bilirubin 0.2 (0.2-1.0) mg/dL AST 9 L (15-37) IU/L ALT 23 (14-63) IU/L Alkaline Phosphatase 49 (46-116) U/L Total Protein 6.0 L (6.4-8.2) g/dL Albumin 3.3 L (3.4-5.0) g/dL Globulin 2.7 (2.6-4.0) g/dL Albumin/Globulin Ratio 1.2 (0.9-1.6) Lipase (73-393) U/L Urine Color Urine Appearance Urine pH (5.0-8.0) Ur Specific [place] (1.001-1.035) Urine Protein (NEGATIVE) mg/dL Urine Glucose (UA) (NEGATIVE) mg/dL Urine Ketones (NEGATIVE) mg/dL Urine Occult Blood (NEGATIVE) Urine Nitrite (NEGATIVE) Urine Bilirubin (NEGATIVE) Urine Urobilinogen (<2.0) EU/dL Ur Leukocyte Esterase (NEGATIVE) Urine RBC (0-2/HPF) Urine WBC (0-5/HPF) Ur Epithelial Cells (NONE-FEW) Urine Bacteria (NEGATIVE) Urine HCG, Qual (NEGATIVE) SARS-CoV-2 RNA (RT-PCR) (NEGATIVE) Med Orders - Current: Current Medications Acetaminophen/Codeine Phosphate (Tylenol With Codeine No.3 300mg/30mg) 1 tab PO Q6H PRN PRN Reason: Pain Last Admin: 09/13/19 11:31 Dose: 1 tab Documented by: Calcium Carbonate/Glycine (Tums) 1,000 mg PO TID PRN PRN Reason: Indigestion Last Admin: 09/12/19 21:55 Dose: 1,000 mg Documented by: Enoxaparin Sodium (Lovenox) 30 mg SUBCUT Q24H DONNIE Last Admin: 09/12/19 21:54 Dose: 30 mg Documented by: Sodium Chloride (Normal Saline) 1,000 mls @ 80 mls/hr IV CONTINUOUS ONE Stop: 09/13/19 23:53 Last Admin: 09/13/19 11:33 Dose: 80 mls/hr Documented by: Omeprazole (Omeprazole) 20 mg PO BIDAC [facility] Last Admin: 09/13/19 06:44 Dose: 20 mg Documented by: Ondansetron HCl (Zofran) 4 mg IVPUSH Q4H PRN PRN Reason: Nausea Last Admin: 09/12/19 20:06 Dose: 4 mg Documented by: Prednisone (Prednisone) 40 mg PO DAILY [facility]; Taper Stop: 10/14/19 08:59 Last Admin: 09/13/19 09:05 Dose: 40 mg Documented by: Sodium Chloride (Saline Flush) 10 ml FLUSH ASDIRECTED PRN PRN Reason: Keep Vein Open Last Admin: 09/12/19 14:50 Dose: 10 ml Documented by: Sodium Chloride (Saline Flush) 2.5 ml FLUSH ASDIRECTED PRN PRN Reason: Keep Vein Open Last Admin: 09/12/19 14:50 Dose: 2.5 ml Documented by: Discontinued Medications Dicyclomine HCl (Bentyl) 20 mg PO ONETIME ONE Stop: 09/12/19 16:28 Last Admin: 09/12/19 17:12 Dose: 20 mg Documented by: Hydromorphone HCl (Dilaudid) 0.5 mg IVPUSH Q1H PRN PRN Reason: Pain Sodium Chloride (Normal Saline) 1,000 mls @ 999 mls/hr IV .Bolus ONE Stop: 09/12/19 17:26 Last Admin: 09/12/19 16:34 Dose: 999 mls/hr Documented by: Piperacillin Sod/Tazobactam (Sod 3.375 gm/ Sodium Chloride) 50 mls @ 100 mls/hr IV ONETIME ONE Stop: 09/12/19 18:31 Last Admin: 09/12/19 18:49 Dose: 100 mls/hr Documented by: Sodium Chloride (Normal Saline) 1,000 mls @ 80 mls/hr IV CONTINUOUS ONE Stop: 09/13/19 08:28 Last Admin: 09/12/19 20:46 Dose: 80 mls/hr Documented by: Iopamidol (Isovue Multipack-370 (76%)) 75 ml IVPUSH ONETIME STA Stop: 09/12/19 17:03 Last Admin: 09/12/19 17:03 Dose: 75 ml Documented by: Morphine Sulfate (Morphine) 4 mg IVPUSH ONETIME ONE Stop: 09/12/19 14:44 Last Admin: 09/12/19 14:50 Dose: 4 mg Documented by: Morphine Sulfate (Morphine) 4 mg IVPUSH Q2H PRN PRN Reason: Pain (moderate 4-6) Last Admin: 09/13/19 05:42 Dose: 4 mg Documented by: Morphine Sulfate (Morphine) 2 mg IVPUSH Q2H PRN PRN Reason: Pain Last Admin: 09/13/19 09:06 Dose: 2 mg Documented by: Ondansetron HCl (Zofran) 4 mg IVPUSH ONETIME ONE Stop: 09/12/19 14:44 Last Admin: 09/12/19 14:50 Dose: 4 mg Documented by: - Exam Quality Assessment: No: Supplemental Oxygen General: Alert, Oriented, Cooperative, No Acute Distress HEENT: EOMI Neck: Supple, Other Lungs: Clear to Auscultation Cardiovascular: Regular Rate, Regular Rhythm GI/Abdominal Exam: Soft, Other (mild diffuse abdominal tenderness; colostomy bag in-situ; dark green stool; liquid noted. no rebound tenderness ) Extremities: Normal Inspection, Non-Tender Skin: Warm, Dry Neurological: No New Focal Deficit Psy/Mental Status: Alert, Normal Mood Sepsis Event Note - Evaluation Sepsis Screening Result: No Definite Risk - Focused Exam Vital Signs: Vital Signs Temp Pulse Resp BP Pulse Ox 09/13/19 08:07 97.2 F 88 14 115/72 100 09/13/19 00:19 96.9 F 61 15 116/53 L 99 Date Exam was Performed: 09/13/19 Time Exam was Performed: 11:55 - Problem List Review Problem List Initiated/Reviewed/Updated: Yes - My Orders Last 24 Hours: My Active Orders 09/12/19 16:00 CULTURE URINE [RM] Routine 09/12/19 19:01 Code Status [Resuscitation Status] Routine 09/12/19 19:04 Antiembolic Devices [RC] PER UNIT ROUTINE Intake and Output [RC] Q12H SCD [Sequential Compression Device] [OM.PC] Routine 09/12/19 19:30 Ondansetron [Zofran] 4 mg IVPUSH Q4H PRN 09/13/19 07:30 Omeprazole 20 mg PO BIDAC 09/13/19 09:00 predniSONE 40 mg PO DAILY 09/13/19 11:13 Acetaminophen/Codeine [Tylenol with Codeine No.3 300MG/30MG] 1 tab PO Q6H PRN 09/13/19 11:24 Sodium Chloride 0.9% [Normal Saline] 1,000 ml IV CONTINUOUS - Plan Plan:: Assessment: 1. Abdominal pain in setting of ulcerative colitis s/p colectomy w. colostomy in-situ 2. 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 Full code. NPO. I/o's per routine. up ad aniya 1. Abdominal pain: interval improvement since admission; will switch to PO Tylenol #3; continue to advance diet as tolerated. US pelvis negative. Continue Zosyn; awaiting cultures. IV fluids 80 cc NS 2. Continue steroids per home dosing. 3, Some concerns regarding pyelonephritis and trace blood in UA; will get further clarifications regarding imaging; Ucx ordered. LMP: 1 month prior
[2019-09-13] MEDS: Piperacillin/Tazobactam 3.375 GM in Sodium Chloride 0.9% 50 ML IV SCH ×3 (12:07→23:39)
[2019-09-13] MEDS ORDERED: Ibuprofen Susp 100 MG/5 ML 10 ML UD Cup PO PRN ×2 (13:03→13:07)
[2019-09-13] MEDS ORDERED: Ibuprofen 200 MG Tab PO PRN (13:06)
[2019-09-13] MEDS: Calcium Carbonate 500 MG Tab.Chew PO PRN (18:19)
[2019-09-13] MEDS: Enoxaparin 30 MG/0.3 ML Syringe SUBCUT SCH (20:48)
[2019-09-13] MEDS ORDERED: Omeprazole 20 MG Cap.CR PO SCH (21:00)
[2019-09-13] MEDS: Morphine 2 MG/ML Syringe IVPUSH PRN (23:40)
[2019-09-14] MEDS: Sodium Chloride 0.9% 1,000 ML IV SCH ×2 (02:56→16:57)
[2019-09-14] MEDS: Omeprazole 20 MG Cap.CR PO SCH ×2 (06:32→16:59)
[2019-09-14] MEDS: Piperacillin/Tazobactam 3.375 GM in Sodium Chloride 0.9% 50 ML IV SCH ×3 (06:32→17:00)
[2019-09-14] MEDS: Morphine 2 MG/ML Syringe IVPUSH PRN ×3 (06:32→21:48)
[2019-09-14 06:46] LABS: BLOOD UREA NITROGEN,BUN 7 mg/dL (7.0-18.0); CARBON DIOXIDE,CO2 27.2 mmol/L (21.0-32.0); CHLORIDE,CL 105 mmol/L (98-107); GLUCOSE RANDOM 77 mg/dL (74-106); POTASSIUM,K 3.5 mmol/L (3.5-5.1); SODIUM,NA 140 mmol/L (136-145)
[2019-09-14] MEDS: predniSONE 10 MG Tab PO SCH (08:08)
[2019-09-14] MEDS: Ondansetron 4 MG/2 ML SDV IVPUSH PRN (11:44)
[2019-09-14] MEDS: Acetaminophen/Codeine 300-30 MG Tab PO PRN (11:48)
--- NOTE | 2019-09-14 12:24 | PCM.PN ---
- General Info Date of Service: 09/14/19 - Review of Systems Systems Review Comment:: patient reports nausea and vomiting this morning, does not feel ready to go home. - Patient Data Vitals - Most Recent: Last Vital Signs Temp 36.2 C 09/14/19 08:00 Pulse 68 09/14/19 08:00 Resp 14 09/14/19 08:00 BP 112/54 L 09/14/19 08:00 Pulse Ox 98 09/14/19 08:00 Weight - Most Recent: 46.266 kg I&O - Last 24 Hours: Intake & Output 09/13/19 09/14/19 09/14/19 22:59 06:59 14:59 Intake Total 897 1505 50 Output Total 1600 1700 Balance -703 -195 50 Lab Results Last 24 Hours: Laboratory Results - last 24 hr 09/14/19 09/14/19 Range/Units 06:13 06:13 WBC 11.47 H (4.0-11.0) K/uL RBC 3.88 L (4.30-5.90) M/uL Hgb 9.1 L (12.0-16.0) g/dL Hct 30.4 L (36.0-46.0) % MCV 78.4 L (80.0-98.0) fL MCH 23.5 L (27.0-32.0) pg MCHC 29.9 L (31.0-37.0) g/dL RDW Std Deviation 48.1 (28.0-62.0) fl RDW Coeff of Buck 17 H (11.0-15.0) % Plt Count 353 (150-400) K/uL MPV 8.90 (7.40-12.00) fL Neut % (Auto) 49.5 (48.0-80.0) % Lymph % (Auto) 40.2 H (16.0-40.0) % [place] % (Auto) 9.6 (0.0-15.0) % Eos % (Auto) 0.4 (0.0-7.0) % Baso % (Auto) 0.3 (0.0-1.5) % Neut # (Auto) 5.7 (1.4-5.7) K/uL Lymph # (Auto) 4.6 H (0.6-2.4) K/uL [place] # (Auto) 1.1 H (0.0-0.8) K/uL Eos # (Auto) 0.1 (0.0-0.7) K/uL Baso # (Auto) 0.0 (0.0-0.1) K/uL Nucleated RBC % 0.0 /100WBC Nucleated RBCs # 0 K/uL Sodium 140 (136-145) mmol/L Potassium 3.5 (3.5-5.1) mmol/L Chloride 105 (98-107) mmol/L Carbon Dioxide 27.2 (21.0-32.0) mmol/L BUN 7 (7.0-18.0) mg/dL Creatinine 0.7 (0.6-1.0) mg/dL Est Cr Clr Drug Dosing 92.85 mL/min Estimated GFR (MDRD) > 60.0 ml/min Glucose 77 (74-106) mg/dL Calcium 8.4 L (8.5-10.1) mg/dL Total Bilirubin 0.2 (0.2-1.0) mg/dL AST 9 L (15-37) IU/L ALT 20 (14-63) IU/L Alkaline Phosphatase 43 L (46-116) U/L Total Protein 5.7 L (6.4-8.2) g/dL Albumin 3.0 L (3.4-5.0) g/dL Globulin 2.7 (2.6-4.0) g/dL Albumin/Globulin Ratio 1.1 (0.9-1.6) Rohit Results Last 24 Hours: Microbiology 09/12/19 16:00 Urine Culture - Final Urine, Clean Catch MIXED CHARLEY 10,000-100,000 CFU/ML Med Orders - Current: Current Medications Acetaminophen/Codeine Phosphate (Tylenol With Codeine No.3 300mg/30mg) 1 tab PO Q6H PRN PRN Reason: Pain Last Admin: 09/14/19 11:48 Dose: 1 tab Documented by: Calcium Carbonate/Glycine (Tums) 1,000 mg PO TID PRN PRN Reason: Indigestion Last Admin: 09/13/19 18:19 Dose: 1,000 mg Documented by: Enoxaparin Sodium (Lovenox) 30 mg SUBCUT Q24H [facility] Last Admin: 09/13/19 20:48 Dose: 30 mg Documented by: Piperacillin Sod/Tazobactam (Sod 3.375 gm/ Sodium Chloride) 50 mls @ 100 mls/hr IV Q6H [facility] Last Admin: 09/14/19 11:05 Dose: 100 mls/hr Documented by: Sodium Chloride (Normal Saline) 1,000 mls @ 80 mls/hr IV ASDIRECTED [facility] Last Admin: 09/14/19 02:56 Dose: 80 mls/hr Documented by: Ibuprofen (Motrin 100 Mg/5 Ml Susp) 200 mg PO Q4H PRN PRN Reason: Pain Last Admin: 09/13/19 20:48 Dose: 200 mg Documented by: Morphine Sulfate (Morphine) 2 mg IVPUSH Q6H PRN PRN Reason: Pain Last Admin: 09/14/19 06:32 Dose: 2 mg Documented by: Omeprazole (Omeprazole) 20 mg PO BIDAC [facility] Last Admin: 09/14/19 06:32 Dose: 20 mg Documented by: Ondansetron HCl (Zofran) 4 mg IVPUSH Q4H PRN PRN Reason: Nausea Last Admin: 09/14/19 11:44 Dose: 4 mg Documented by: Prednisone (Prednisone) 40 mg PO DAILY [facility]; Taper Stop: 10/14/19 08:59 Last Admin: 09/14/19 08:08 Dose: 40 mg Documented by: Sodium Chloride (Saline Flush) 10 ml FLUSH ASDIRECTED PRN PRN Reason: Keep Vein Open Last Admin: 09/12/19 14:50 Dose: 10 ml Documented by: Sodium Chloride (Saline Flush) 2.5 ml FLUSH ASDIRECTED PRN PRN Reason: Keep Vein Open Last Admin: 09/12/19 14:50 Dose: 2.5 ml Documented by: Discontinued Medications Dicyclomine HCl (Bentyl) 20 mg PO ONETIME ONE Stop: 09/12/19 16:28 Last Admin: 09/12/19 17:12 Dose: 20 mg Documented by: Hydromorphone HCl (Dilaudid) 0.5 mg IVPUSH Q1H PRN PRN Reason: Pain Sodium Chloride (Normal Saline) 1,000 mls @ 999 mls/hr IV .Bolus ONE Stop: 09/12/19 17:26 Last Admin: 09/12/19 16:34 Dose: 999 mls/hr Documented by: Piperacillin Sod/Tazobactam (Sod 3.375 gm/ Sodium Chloride) 50 mls @ 100 mls/hr IV ONETIME ONE Stop: 09/12/19 18:31 Last Admin: 09/12/19 18:49 Dose: 100 mls/hr Documented by: Sodium Chloride (Normal Saline) 1,000 mls @ 80 mls/hr IV CONTINUOUS ONE Stop: 09/13/19 08:28 Last Admin: 09/12/19 20:46 Dose: 80 mls/hr Documented by: Sodium Chloride (Normal Saline) 1,000 mls @ 80 mls/hr IV CONTINUOUS ONE Stop: 09/13/19 23:53 Last Admin: 09/13/19 11:33 Dose: 80 mls/hr Documented by: Sodium Chloride (Normal Saline) 1,000 mls @ 999 mls/hr IV STAT ONE Stop: 09/13/19 19:34 Last Admin: 09/13/19 19:23 Dose: Not Given Documented by: Ibuprofen (Motrin 100 Mg/5 Ml Susp) 200 mg PO Q4H PRN PRN Reason: Pain Ibuprofen (Motrin) 200 mg PO Q4H PRN PRN Reason: Pain Iopamidol (Isovue Multipack-370 (76%)) 75 ml IVPUSH ONETIME STA Stop: 09/12/19 17:03 Last Admin: 09/12/19 17:03 Dose: 75 ml Documented by: Morphine Sulfate (Morphine) 4 mg IVPUSH ONETIME ONE Stop: 09/12/19 14:44 Last Admin: 09/12/19 14:50 Dose: 4 mg Documented by: Morphine Sulfate (Morphine) 4 mg IVPUSH Q2H PRN PRN Reason: Pain (moderate 4-6) Last Admin: 09/13/19 05:42 Dose: 4 mg Documented by: Morphine Sulfate (Morphine) 2 mg IVPUSH Q2H PRN PRN Reason: Pain Last Admin: 09/13/19 09:06 Dose: 2 mg Documented by: Ondansetron HCl (Zofran) 4 mg IVPUSH ONETIME ONE Stop: 09/12/19 14:44 Last Admin: 09/12/19 14:50 Dose: 4 mg Documented by: - Exam General: Alert, Oriented HEENT: Mucous Membr. Moist/[place] Neck: Supple Lungs: Clear to Auscultation, Normal Respiratory Effort Cardiovascular: Regular Rate, Regular Rhythm GI/Abdominal Exam: Normal Bowel Sounds, Soft, Non-Tender, No Distention Extremities: Non-Tender, No Pedal Edema Skin: Warm, Dry, Intact Neurological: No New Focal Deficit Sepsis Event Note - Evaluation Sepsis Screening Result: No Definite Risk - Focused Exam Vital Signs: Vital Signs Temp Pulse Resp BP Pulse Ox 09/14/19 08:00 36.2 C 68 14 112/54 L 98 09/14/19 04:12 36.6 C 66 14 122/58 L 98 Date Exam was Performed: 09/14/19 Time Exam was Performed: 12:20 - Problem List Review Problem List Initiated/Reviewed/Updated: Yes - My Orders Last 24 Hours: My Active Orders 09/13/19 23:21 Morphine Sulfate [Morphine] 2 mg IVPUSH Q6H PRN 09/14/19 03:00 Sodium Chloride 0.9% [Normal Saline] 1,000 ml IV ASDIRECTED 09/14/19 12:19 CBC WITH AUTO DIFF [HEME] Routine 09/15/19 05:11 COMPREHENSIVE METABOLIC PN,CMP [CHEM] AM - Plan Plan:: Assessment: 19 yo female admitted for abdominal pain, nausea and vomiting, She is s/p colectomy for ulcerative colitis and is on a steroid taper. Work up has been unremarkable except for possible pyelonephritis seen on CT scan of abdomen. Currently treating with Javier. I spoke with DR. Powell at [facility] regarding patients symptoms of abdominal pain, nausea and vomiting and work up so far. He is in agreement with current treatment plan here. Will continue pain control and antiemetics.
[2019-09-14] MEDS: Enoxaparin 30 MG/0.3 ML Syringe SUBCUT SCH (21:49)
[2019-09-15] MEDS: Piperacillin/Tazobactam 3.375 GM in Sodium Chloride 0.9% 50 ML IV SCH ×2 (00:55→05:40)
[2019-09-15] MEDS: Acetaminophen/Codeine 300-30 MG Tab PO PRN (04:26)
[2019-09-15] MEDS: Sodium Chloride 0.9% 1,000 ML IV SCH (05:40)
[2019-09-15] MEDS: Morphine 2 MG/ML Syringe IVPUSH PRN (05:46)
[2019-09-15] MEDS: Omeprazole 20 MG Cap.CR PO SCH ×2 (06:30→17:17)
[2019-09-15 06:42] LABS: BLOOD UREA NITROGEN,BUN 5 mg/dL (7.0-18.0); CARBON DIOXIDE,CO2 25.4 mmol/L (21.0-32.0); CHLORIDE,CL 103 mmol/L (98-107); GLUCOSE RANDOM 67 mg/dL (74-106); POTASSIUM,K 3.3 mmol/L (3.5-5.1); SODIUM,NA 140 mmol/L (136-145)
[2019-09-15] MEDS ORDERED: 50% Dextrose in Water 50 ML Syringe IVPUSH ONE (08:33)
[2019-09-15] MEDS: predniSONE 10 MG Tab PO SCH (08:54)
[2019-09-15] MEDS ORDERED: Sulfamethoxazole/Trimethoprim 800-160 MG Tab PO SCH (12:00)
--- NOTE | 2019-09-15 14:43 | PCM.DCSUM1 ---
Discharge Summary - Hospital Course Brief History: Patient is a 19 y.o female w. significant medical history of ulcerative colitis s/p colectomy w. colostomy bag in-situ, hx. of repeated c.difficile infections; presenting today for abdominal pain w. episodes of non- bloody vomitus since last night. pt. mentions abdominal pain began around 8 pm last night and lasted throughout the night and into the AM. Mentions pain worsens with food and movement. Denies any recent spicy foods, ETOH, tobacco abuse or other obvious causes. Colectomy performed on August 20 at [facility] ; colectomy w. colostomy placed. Placed on high-dose prednisone taper; currently on week 3 of steroids. Was told she will not require any further Remicade and or Humira infusion any further. ED course: pt. was given a liter bolus of 1 l NS+morphine and Bentyl for pain control. CT abdomen pelvis did not show any acute processes. Bedside: no new additional information; mentions pain is improving w. current regimen Diagnosis: Stroke: No - Discharge Data Discharge Date: 09/15/19 Discharge Disposition: Home, Self-Care 01 Condition: Stable - Referral to Home Health Primary Care Physician: PCP None - Patient Summary/Data Hospital Course: Admitting Diagnoses: R sided pyelonephritis Discharge Pyelonephritis Keysha was admitted secondary to abdominal pain, suspected to be pyelonephritis, she was treated with Zosyn. Dr Cedeño discussed care with [facility] provider, who agreed with treatment. CT showed to concerns with Ulcerative colitis. Urine Culture returned mixed maylin 10,000-100,000. She is improved today, tolerating soft diet. Stools remain green to brown. No blood present. She is to continue Prednisone taper at home. She will be sent home with Bactrim DS BID x 12 more days. Monitor stools, due to history of Cdiff. Monitor for fevers or chils, and if present discuss with PCP or come to ED. She is to return to ED or clinic if concerns should arise. - Patient Instructions Diet, Other: [place] soft diet for next few days then advance Activity: As Tolerated Showering/Bathing: May Shower Notify Provider of: Fever, Increased Pain, Swelling and Redness, Drainage, [place] sea and/or Vomiting - Discharge Plan *PRESCRIPTION DRUG MONITORING PROGRAM REVIEWED*: Not Applicable *COPY OF PRESCRIPTION DRUG MONITORING REPORT IN PATIENT MEJIA: Not Applicable Prescriptions/Med Rec: Sulfamethoxazole/Trimethoprim [Septra DS] 1 tab PO BID #24 tablet Acetaminophen/Codeine [Tylenol with Codeine No.3 300MG/30MG] 1 tab PO Q6H PRN #8 tablet PRN Reason: Pain Home Medications: Home Meds predniSONE [Prednisone] 10 - 40 mg PO DAILY #82 tablet 07/31/19 [Rx] Ondansetron [Zofran] 4 mg PO ASDIRECTED PRN 08/09/19 [History] Enoxaparin [Lovenox] 30 mg SUBCUT DAILY 09/12/19 [History] Acetaminophen/Codeine [Tylenol with Codeine No.3 300MG/30MG] 1 tab PO Q6H PRN #8 tablet 09/15/19 [Rx] Sulfamethoxazole/Trimethoprim [Septra DS] 1 tab PO BID #24 tablet 09/15/19 [Rx] Oxygen Therapy Mode: Room Air Patient Handouts: Sulfamethoxazole; Trimethoprim, SMX-TMP tablets, Glomerulonephritis, Pediatric, Acetaminophen; Codeine tablets Referrals: PCP,None [Primary Care Provider] - Roddy Allen MD [Ordering Only Provider] - 09/25/19 12:45 pm (Please arrive 15 minutes early with your ID and insurance card, and [place] is now requiring all patients to wear a face mask when entering the building. ) - Discharge Summary/Plan Comment DC Time >30 min.: No - Patient Data Vitals - Most Recent: Last Vital Signs Temp 97.7 F 09/15/19 12:00 Pulse 90 09/15/19 12:00 Resp 16 09/15/19 12:00 BP 107/51 L 09/15/19 12:00 Pulse Ox 98 09/15/19 12:00 Weight - Most Recent: 46.266 kg I&O - Last 24 hours: Intake & Output 09/14/19 09/15/19 09/15/19 22:59 06:59 14:59 Intake Total 1628 1360 Output Total 1400 1000 Balance 228 360 Lab Results - Last 24 hrs: Laboratory Results - last 24 hr 09/15/19 09/15/19 09/15/19 Range/Units 05:55 08:31 09:58 Sodium 140 (136-145) mmol/L Potassium 3.3 L (3.5-5.1) mmol/L Chloride 103 (98-107) mmol/L Carbon Dioxide 25.4 (21.0-32.0) mmol/L BUN 5 L (7.0-18.0) mg/dL Creatinine 0.7 (0.6-1.0) mg/dL Est Cr Clr Drug Dosing 92.85 mL/min Estimated GFR (MDRD) > 60.0 ml/min Glucose 67 L (74-106) mg/dL POC Glucose 58 L 89 (60-110) mg/dL Calcium 8.6 (8.5-10.1) mg/dL Total Bilirubin 0.3 (0.2-1.0) mg/dL AST 11 L (15-37) IU/L ALT 18 (14-63) IU/L Alkaline Phosphatase 40 L (46-116) U/L Total Protein 5.6 L (6.4-8.2) g/dL Albumin 3.0 L (3.4-5.0) g/dL Globulin 2.6 (2.6-4.0) g/dL Albumin/Globulin Ratio 1.2 (0.9-1.6) Med Orders - Current: Current Medications Acetaminophen/Codeine Phosphate (Tylenol With Codeine No.3 300mg/30mg) 1 tab PO Q6H PRN PRN Reason: Pain Last Admin: 09/15/19 04:26 Dose: 1 tab Documented by: Calcium Carbonate/Glycine (Tums) 1,000 mg PO TID PRN PRN Reason: Indigestion Last Admin: 09/13/19 18:19 Dose: 1,000 mg Documented by: Enoxaparin Sodium (Lovenox) 30 mg SUBCUT Q24H [facility] Last Admin: 09/14/19 21:49 Dose: 30 mg Documented by: Sodium Chloride (Normal Saline) 1,000 mls @ 80 mls/hr IV ASDIRECTED [facility] Last Admin: 09/15/19 05:40 Dose: 80 mls/hr Documented by: Ibuprofen (Motrin 100 Mg/5 Ml Susp) 200 mg PO Q4H PRN PRN Reason: Pain Last Admin: 09/13/19 20:48 Dose: 200 mg Documented by: Omeprazole (Omeprazole) 20 mg PO BIDAC [facility] Last Admin: 09/15/19 06:30 Dose: 20 mg Documented by: Ondansetron HCl (Zofran) 4 mg IVPUSH Q4H PRN PRN Reason: Nausea Last Admin: 09/14/19 11:44 Dose: 4 mg Documented by: Prednisone (Prednisone) 40 mg PO DAILY [facility]; Taper Stop: 10/14/19 08:59 Last Admin: 09/15/19 08:54 Dose: 40 mg Documented by: Sodium Chloride (Saline Flush) 10 ml FLUSH ASDIRECTED PRN PRN Reason: Keep Vein Open Last Admin: 09/12/19 14:50 Dose: 10 ml Documented by: Sodium Chloride (Saline Flush) 2.5 ml FLUSH ASDIRECTED PRN PRN Reason: Keep Vein Open Last Admin: 09/12/19 14:50 Dose: 2.5 ml Documented by: Trimethoprim/Sulfamethoxazole (Septra Ds) 1 tab PO BID [facility] Last Admin: 09/15/19 12:12 Dose: 1 tab Documented by: Discontinued Medications Dextrose/Water (Dextrose 50% In Water) 25 ml IVPUSH ONETIME ONE Stop: 09/15/19 08:34 Last Admin: 09/15/19 08:46 Dose: 25 ml Documented by: Dicyclomine HCl (Bentyl) 20 mg PO ONETIME ONE Stop: 09/12/19 16:28 Last Admin: 09/12/19 17:12 Dose: 20 mg Documented by: Hydromorphone HCl (Dilaudid) 0.5 mg IVPUSH Q1H PRN PRN Reason: Pain Sodium Chloride (Normal Saline) 1,000 mls @ 999 mls/hr IV .Bolus ONE Stop: 09/12/19 17:26 Last Admin: 09/12/19 16:34 Dose: 999 mls/hr Documented by: Piperacillin Sod/Tazobactam (Sod 3.375 gm/ Sodium Chloride) 50 mls @ 100 mls/hr IV ONETIME ONE Stop: 09/12/19 18:31 Last Admin: 09/12/19 18:49 Dose: 100 mls/hr Documented by: Sodium Chloride (Normal Saline) 1,000 mls @ 80 mls/hr IV CONTINUOUS ONE Stop: 09/13/19 08:28 Last Admin: 09/12/19 20:46 Dose: 80 mls/hr Documented by: Sodium Chloride (Normal Saline) 1,000 mls @ 80 mls/hr IV CONTINUOUS ONE Stop: 09/13/19 23:53 Last Admin: 09/13/19 11:33 Dose: 80 mls/hr Documented by: Piperacillin Sod/Tazobactam (Sod 3.375 gm/ Sodium Chloride) 50 mls @ 100 mls/hr IV Q6H [facility] Last Admin: 09/15/19 05:40 Dose: 100 mls/hr Documented by: Sodium Chloride (Normal Saline) 1,000 mls @ 999 mls/hr IV STAT ONE Stop: 09/13/19 19:34 Last Admin: 09/13/19 19:23 Dose: Not Given Documented by: Ibuprofen (Motrin 100 Mg/5 Ml Susp) 200 mg PO Q4H PRN PRN Reason: Pain Ibuprofen (Motrin) 200 mg PO Q4H PRN PRN Reason: Pain Iopamidol (Isovue Multipack-370 (76%)) 75 ml IVPUSH ONETIME STA Stop: 09/12/19 17:03 Last Admin: 09/12/19 17:03 Dose: 75 ml Documented by: Morphine Sulfate (Morphine) 4 mg IVPUSH ONETIME ONE Stop: 09/12/19 14:44 Last Admin: 09/12/19 14:50 Dose: 4 mg Documented by: Morphine Sulfate (Morphine) 4 mg IVPUSH Q2H PRN PRN Reason: Pain (moderate 4-6) Last Admin: 09/13/19 05:42 Dose: 4 mg Documented by: Morphine Sulfate (Morphine) 2 mg IVPUSH Q2H PRN PRN Reason: Pain Last Admin: 09/13/19 09:06 Dose: 2 mg Documented by: Morphine Sulfate (Morphine) 2 mg IVPUSH Q6H PRN PRN Reason: Pain Last Admin: 09/15/19 05:46 Dose: 2 mg Documented by: Ondansetron HCl (Zofran) 4 mg IVPUSH ONETIME ONE Stop: 09/12/19 14:44 Last Admin: 09/12/19 14:50 Dose: 4 mg Documented by: - Exam General: Reports: Alert, Oriented, Cooperative, No Acute Distress Lungs: Reports: Clear to Auscultation, Normal Respiratory Effort Cardiovascular: Reports: Regular Rate, Regular Rhythm GI/Abdominal Exam: Normal Bowel Sounds, Soft, Non-Tender, Other (ostomy to RLQ) Extremities: Normal Inspection, Normal Range of Motion, Non-Tender, John's Sign Neurological: Reports: No New Focal Deficit Psy/Mental Status: Reports: Alert, Normal Affect, Normal Mood
== END 2019-09-15 18:00 | disposition home or self-care (01) | DRG 463 ==
LOC: MW.ED 14:11 → MW.MS 18:03 → OBSVTOIN 09-14 12:25 → MW.MS 09-14 12:25
PROVIDERS: ADMIT Internal Medicine; ATTEND Internal Medicine
DX: N12 Tubulo-interstitial nephritis, not specified as acute or chronic (principal); K51.90 Ulcerative colitis, unspecified, without complications; K52.9 Noninfective gastroenteritis and colitis, unspecified; F90.9 Attention-deficit hyperactivity disorder, unspecified type; D64.9 Anemia, unspecified; Z79.52 Long term (current) use of systemic steroids; Z93.3 Colostomy status; Z79.899 Other long term (current) drug therapy
CPT/HCPCS: 36415; 74177; 74177-26; 76856; 76856-26; 80053; 81001; 81025; 82962; 83690; 85025; 87086; 96361; 96365; 96375; 96376; 99283; 99285-25; A9270-GY; J1650; J2270; J2405; J2543; J7030; J7050; Q9967; U0002

== ENCOUNTER 2020-04-24 05:31 | Inpatient (IN) | payer BC, MEDICAID ==
[2020-04-24] MEDS ORDERED: Sodium Chloride 0.9% 1,000 ML IV ONE ×2 (06:04→08:42)
[2020-04-24] MEDS ORDERED: HYDROmorphone 1 MG/ML Syringe IVPUSH ONE ×2 (06:04→08:37)
--- NOTE | 2020-04-24 06:08 | EDM.PDOC ---
ED HPI GENERAL MEDICAL PROBLEM - General Chief Complaint: Abdominal Pain Stated Complaint: ABDOMINAL PAIN, DIARRHEA Time Seen by Provider: 04/24/20 06:06 Source of Information: Reports: Patient History Limitations: Reports: No Limitations - History of Present Illness INITIAL COMMENTS - FREE TEXT/NARRATIVE: Is a 19-year-old female with a history of IBD who presents today for diffuse abdominal pain. Patient has colostomy bag on the right side but states that she has been having some mucus from her rectal area. Pain states she is now had this abdominal pain for the past few days and continue to get worse. Patient states she still able to tolerate some p.o. but has pain with eating. Patient denies any fever chills short of breath or other complaints. Lower abdomen Pain Score (Numeric/FACES): 9 - Related Data Allergies Allergy/AdvReac Type Severity Reaction Status Date / Time No Known Allergies Allergy Verified 04/24/20 05:45 Home Meds: Home Meds . 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 TEACHER History: Bacterial vaginitis, yeast infection Musculoskeletal History: Reports: None Neurological History: Reports: None Psychiatric History: Reports: ADHD Endocrine/Metabolic History: Reports: None Insulin Pump Model and Ibm [employer] Commerce Consultant: N/A Hematologic History: Reports: Anemia, Other (See Below) Other Hematologic History: Blood Transfussions 2018 Immunologic History: Reports: None Oncologic (Cancer) History: Reports: None Dermatologic History: Reports: None - Infectious Disease History Infectious Disease History: Reports: None - Past Surgical History Head Surgeries/Procedures: Reports: None HEENT Surgical History: Reports: None Cardiovascular Surgical History: Reports: None GI Surgical History: Reports: Colonoscopy, Other (See Below) Other GI Surgeries/Procedures: Fecal transplant Female Surgical History: Reports: None Social & Family History - Family History Family Medical History: No Pertinent Family History - Caffeine Use Caffeine Use: Reports: None Other Caffeine Use: seldom - Recreational Drug Use Recreational Drug Use: No ED ROS GENERAL - Review of Systems Review Of Systems: See Below Constitutional: Reports: No Symptoms HEENT: Reports: No Symptoms Respiratory: Reports: No Symptoms Cardiovascular: Reports: No Symptoms Endocrine: Reports: No Symptoms GI/Abdominal: Reports: Abdominal Pain : Reports: No Symptoms Musculoskeletal: Reports: No Symptoms Skin: Reports: No Symptoms Neurological: Reports: No Symptoms Psychiatric: Reports: No Symptoms Hematologic/Lymphatic: Reports: No Symptoms Immunologic: Reports: No Symptoms ED EXAM, GENERAL - Physical Exam Exam: See Below Exam Limited By: No Limitations General Appearance: Alert, WD/WN, No Apparent Distress Eye Exam: Bilateral Eye: EOMI, PERRL Respiratory/Chest: No Respiratory Distress, Lungs Clear, Normal Breath Sounds Cardiovascular: Normal Peripheral Pulses, Regular Rate, Rhythm, No Edema GI/Abdominal: Normal Bowel Sounds, Tender Extremities: Normal Inspection Neurological: Alert, Oriented Course - Vital Signs Last Recorded V/S: Last Vital Signs Temp 98.6 F 04/24/20 05:47 Pulse 113 H 04/24/20 05:47 Resp 18 04/24/20 05:47 BP 124/83 04/24/20 05:47 Pulse Ox 100 04/24/20 05:47 - Orders/Labs/Meds Orders: Active Orders 24 hr Category Date Time Status Abdomen Pelvis w Cont [CT] Stat Exams 04/24/20 06:05 Ordered COMPREHENSIVE METABOLIC PN,CMP [CHEM] Stat Lab 04/24/20 06:40 Received CREATINE KINASE,CK [CHEM] Stat Lab 04/24/20 06:40 Received LIPASE [CHEM] Stat Lab 04/24/20 06:40 Received MAGNESIUM [CHEM] Stat Lab 04/24/20 06:40 Received PHOSPHORUS [CHEM] Stat Lab 04/24/20 06:40 Received Labs: Laboratory Tests 04/24/20 04/24/20 04/24/20 Range/Units 05:44 05:44 06:40 WBC 9.66 (4.0-11.0) K/uL RBC 5.36 (4.30-5.90) M/uL Hgb 13.0 (12.0-16.0) g/dL Hct 40.7 (36.0-46.0) % MCV 75.9 L (80.0-98.0) fL MCH 24.3 L (27.0-32.0) pg MCHC 31.9 (31.0-37.0) g/dL RDW Std Deviation 43.9 (28.0-62.0) fl RDW Coeff of Buck 16 H (11.0-15.0) % Plt Count 469 H (150-400) K/uL MPV 10.50 (7.40-12.00) fL Neut % (Auto) 70.6 (48.0-80.0) % Lymph % (Auto) 20.0 (16.0-40.0) % [place] % (Auto) 8.0 (0.0-15.0) % Eos % (Auto) 1.0 (0.0-7.0) % Baso % (Auto) 0.4 (0.0-1.5) % Neut # (Auto) 6.8 H (1.4-5.7) K/uL Lymph # (Auto) 1.9 (0.6-2.4) K/uL [place] # (Auto) 0.8 (0.0-0.8) K/uL Eos # (Auto) 0.1 (0.0-0.7) K/uL Baso # (Auto) 0.0 (0.0-0.1) K/uL Nucleated RBC % 0.0 /100WBC Nucleated RBCs # 0 K/uL Lactate (0.20-2.00) mmol/L Urine Color YELLOW Urine Appearance CLEAR Urine pH 5.5 (5.0-8.0) Ur Specific Register >= 1.030 (1.001-1.035) Urine Protein NEGATIVE (NEGATIVE) mg/dL Urine Glucose (UA) NEGATIVE (NEGATIVE) mg/dL Urine Ketones NEGATIVE (NEGATIVE) mg/dL Urine Occult Blood NEGATIVE (NEGATIVE) Urine Nitrite NEGATIVE (NEGATIVE) Urine Bilirubin NEGATIVE (NEGATIVE) Urine Urobilinogen 0.2 (<2.0) EU/dL Ur Leukocyte Esterase TRACE H (NEGATIVE) Urine RBC 0-2 (0-2/HPF) Urine WBC 1-4 (0-5/HPF) Ur Epithelial Cells FEW (NONE-FEW) Urine Bacteria FEW (NEGATIVE) Urine HCG, Qual NEGATIVE (NEGATIVE) 04/24/20 Range/Units 06:40 WBC (4.0-11.0) K/uL RBC (4.30-5.90) M/uL Hgb (12.0-16.0) g/dL Hct (36.0-46.0) % MCV (80.0-98.0) fL MCH (27.0-32.0) pg MCHC (31.0-37.0) g/dL RDW Std Deviation (28.0-62.0) fl RDW Coeff of Buck (11.0-15.0) % Plt Count (150-400) K/uL MPV (7.40-12.00) fL Neut % (Auto) (48.0-80.0) % Lymph % (Auto) (16.0-40.0) % [place] % (Auto) (0.0-15.0) % Eos % (Auto) (0.0-7.0) % Baso % (Auto) (0.0-1.5) % Neut # (Auto) (1.4-5.7) K/uL Lymph # (Auto) (0.6-2.4) K/uL [place] # (Auto) (0.0-0.8) K/uL Eos # (Auto) (0.0-0.7) K/uL Baso # (Auto) (0.0-0.1) K/uL Nucleated RBC % /100WBC Nucleated RBCs # K/uL Lactate 1.3 (0.20-2.00) mmol/L Urine Color Urine Appearance Urine pH (5.0-8.0) Ur Specific Register (1.001-1.035) Urine Protein (NEGATIVE) mg/dL Urine Glucose (UA) (NEGATIVE) mg/dL Urine Ketones (NEGATIVE) mg/dL Urine Occult Blood (NEGATIVE) Urine Nitrite (NEGATIVE) Urine Bilirubin (NEGATIVE) Urine Urobilinogen (<2.0) EU/dL Ur Leukocyte Esterase (NEGATIVE) Urine RBC (0-2/HPF) Urine WBC (0-5/HPF) Ur Epithelial Cells (NONE-FEW) Urine Bacteria (NEGATIVE) Urine HCG, Qual (NEGATIVE) Meds: Medications Discontinued Medications Generic Name Dose Route Start Last Admin Trade Name Freq PRN Reason Stop Dose Admin Hydromorphone HCl 1 mg 04/24/20 06:04 04/24/20 06:46 Dilaudid IVPUSH 04/24/20 06:05 1 mg ONETIME ONE Administration Sodium Chloride 1,000 mls @ 999 mls/hr 04/24/20 06:04 04/24/20 06:45 Normal Saline IV 04/24/20 07:04 999 mls/hr .BOLUS ONE Administration Departure - Departure Time of Disposition: 07:05 Disposition: Still A Patient 30 Condition: Good Clinical Impression: Abdominal pain Qualifiers: Abdominal location: generalized Qualified Code(s): R10.84 - Generalized abdominal pain - Discharge Information Referrals: Janelle Dela Cruz SIGNAL OPERATOR LINGUIST [Primary Care Provider] - Forms: ED Department Discharge Sepsis Event Note (ED) - Evaluation Sepsis Screening Result: No Definite Risk - Focused Exam Vital Signs: Vital Signs Temp Pulse Resp BP Pulse Ox 04/24/20 05:47 98.6 F 113 H 18 124/83 100 - My Orders Last 24 Hours: My Active Orders 04/24/20 06:05 Abdomen Pelvis w Cont [CT] Stat 04/24/20 06:40 COMPREHENSIVE METABOLIC PN,CMP [CHEM] Stat CREATINE KINASE,CK [CHEM] Stat LIPASE [CHEM] Stat MAGNESIUM [CHEM] Stat PHOSPHORUS [CHEM] Stat - Assessment/Plan Last 24 Hours: My Active Orders 04/24/20 06:05 Abdomen Pelvis w Cont [CT] Stat 04/24/20 06:40 COMPREHENSIVE METABOLIC PN,CMP [CHEM] Stat CREATINE KINASE,CK [CHEM] Stat LIPASE [CHEM] Stat MAGNESIUM [CHEM] Stat PHOSPHORUS [CHEM] Stat Assessment:: Patient is a 19-year-old female who presents today for diffuse abdominal pain. Will obtain CAT scan labs provide pain control and reassess.
[2020-04-24 07:09] LABS: BLOOD UREA NITROGEN,BUN 9 mg/dL (7.0-18.0); CARBON DIOXIDE,CO2 20.8 mmol/L (21.0-32.0); CHLORIDE,CL 104 mmol/L (98-107); GLUCOSE RANDOM 91 mg/dL (74-106); LIPASE 524 U/L (73-393); POTASSIUM,K 3.8 mmol/L (3.5-5.1); SODIUM,NA 139 mmol/L (136-145)
[2020-04-24] MEDS ORDERED: Iopamidol 755 MG/ML 500 ML Multipack Bottle IVPUSH STA (07:25)
[2020-04-24] MEDS ORDERED: Ondansetron 4 MG/2 ML SDV IVPUSH ONE (07:33)
--- NOTE | 2020-04-24 07:57 | CT ---
INDICATION: Abdominal pain. TECHNIQUE: CT scan of the abdomen and pelvis with 100 cc of Isovue-370 given intravenously. COMPARISON: CT scan of the abdomen and pelvis dated 12 September 2019. FINDINGS: The lung bases are unremarkable. No focal abnormalities identified in the visualized portions of the liver, spleen, pancreas, adrenal glands, and kidneys. No hydronephrosis. No obstructing uroliths. Colectomy. Ileostomy in the right lower abdomen. No dilated loops of bowel. Minimal bowel wall thickening involving the distal ileum. No retroperitoneal, pelvic sidewall, or mesenteric adenopathy. IMPRESSION: 1. Minimal bowel wall thickening involving the distal ileum may represent a nonspecific enteritis. Please note that all CT scans at this facility use dose modulation, iterative reconstruction, and/or weight-based dosing when appropriate to reduce radiation dose to as low as reasonably achievable. Dictated by Onel Oshea MD @ Apr 24 2020 7:45AM Signed by Dr. Onel Oshea @ Apr 24 2020 7:55AM
[2020-04-24] MEDS ORDERED: methylPREDNISolone Sodium Succinate 40 MG/1 ML SDV IVPUSH ONE (08:45)
--- NOTE | 2020-04-24 10:14 | PCM.HP.2 ---
H&P History of Present Illness - General Date of Service: 04/24/20 Admit Problem/Dx: Admission Diagnosis/Problem Admission Diagnosis/Problem Ulcerative colitis - History of Present Illness Initial Comments - Free Text/Narative: 19-year-old female with a history of IBD s/p colectomy (Near total per patient, colostomy bag, who presents today for diffuse abdominal pain. Patient states that she got her procedure done at [facility] in August 2019 and has been doing well. She was supposed to get her reversal done in January 2020 but couldn't get it done due to insurance lapse. Patient states that over last few days she has been having increasing pain, rectal discharge followed by "blood dripping into the toilet" when she pushes. Patient states that she has had some off and on bleeding via rectum last few months but didn't think much of it. but now it is getting more noticeable. Pain is worse with eating and turning to her side. Has some associated chills but no fever. Has some supra pubic discomfort as we ll. CT scan was performed in the ER which showed s/p colectomy, with minimal bowel thickening in distal ileum, representing non-specific enteritis. Patient was admitted for further management. Lower abdomen Pain Score (Numeric/FACES): 9 - Related Data Allergies/Adverse Reactions: Allergies Allergy/AdvReac Type Severity Reaction Status Date / Time No Known Allergies Allergy Verified 04/24/20 10:54 Home Medications: Home Meds . 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: Other (See Below) Other OB/BYN History: Bacterial vaginitis, yeast infection Musculoskeletal History: Reports: None Neurological History: Reports: None Psychiatric History: Reports: ADHD Endocrine/Metabolic History: Reports: None Insulin Pump Model 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 Rubber Gasket Inspector Trimmer: N/A Hematologic History: Reports: Anemia, Other (See Below) Other Hematologic History: Blood Transfussions 2018 Immunologic History: Reports: None Oncologic (Cancer) History: Reports: None Dermatologic History: Reports: None - Infectious Disease History Infectious Disease History: Reports: None - Past Surgical History Head Surgeries/Procedures: Reports: None HEENT Surgical History: Reports: None Cardiovascular Surgical History: Reports: None GI Surgical History: Reports: Colonoscopy, Other (See Below) Other GI Surgeries/Procedures: Fecal transplant Female Surgical History: Reports: None Social & Family History - Family History Family Medical History: No Pertinent Family History - Caffeine Use Caffeine Use: Reports: None Other Caffeine Use: seldom - Recreational Drug Use Recreational Drug Use: No H&P Review of Systems - Review of Systems: Review Of Systems: See Below General: Reports: Fever Pulmonary: Denies: Shortness of Breath, Wheezing Cardiovascular: Denies: Chest Pain, Palpitations, Dyspnea on Exertion Gastrointestinal: Reports: Abdominal Pain, Anorexia, Decreased Appetite, Hematochezia, Mucous in Stool, Nausea. Denies: Black Stool, Vomiting Genitourinary: Reports: Dysuria, Pain. Denies: Frequency, Burning Musculoskeletal: Denies: Neck Pain, Shoulder Pain, Arm Pain Skin: Denies: Cyanosis, Jaundice, Mottled Psychiatric: Denies: Confusion, Depression, Cravings, Hallucinations Neurological: Denies: Confusion, Dizziness, Headache Hematologic/Lymphatic: Denies: Anemia, Easy Bleeding, Easy Bruising Exam - Exam Exam: See Below - Vital Signs Vital Signs: Last Vital Signs Temp 37.0 C 04/24/20 05:47 Pulse 76 04/24/20 10:10 Resp 16 04/24/20 10:10 BP 107/57 L 04/24/20 10:10 Pulse Ox 97 04/24/20 10:10 Weight: 54.431 kg - Exam General: Alert, Oriented, Mild Distress Neck: Supple, Trachea Midline Lungs: Clear to Auscultation, Normal Respiratory Effort Cardiovascular: Regular Rate, Regular Rhythm, Normal S1, Normal S2 GI/Abdominal Exam: Normal Bowel Sounds, Soft, Guarding, Tender. No: Non-Tender, No Organomegaly, Hepatomegaly, Splenomegaly - Patient Data Lab Results Last 24 hrs: Laboratory Results - last 24 hr 04/24/20 04/24/20 04/24/20 Range/Units 05:44 05:44 06:40 WBC 9.66 (4.0-11.0) K/uL RBC 5.36 (4.30-5.90) M/uL Hgb 13.0 (12.0-16.0) g/dL Hct 40.7 (36.0-46.0) % MCV 75.9 L (80.0-98.0) fL MCH 24.3 L (27.0-32.0) pg MCHC 31.9 (31.0-37.0) g/dL RDW Std Deviation 43.9 (28.0-62.0) fl RDW Coeff of Buck 16 H (11.0-15.0) % Plt Count 469 H (150-400) K/uL MPV 10.50 (7.40-12.00) fL Neut % (Auto) 70.6 (48.0-80.0) % Lymph % (Auto) 20.0 (16.0-40.0) % Dodge % (Auto) 8.0 (0.0-15.0) % Eos % (Auto) 1.0 (0.0-7.0) % Baso % (Auto) 0.4 (0.0-1.5) % Neut # (Auto) 6.8 H (1.4-5.7) K/uL Lymph # (Auto) 1.9 (0.6-2.4) K/uL Dodge # (Auto) 0.8 (0.0-0.8) K/uL Eos # (Auto) 0.1 (0.0-0.7) K/uL Baso # (Auto) 0.0 (0.0-0.1) K/uL Nucleated RBC % 0.0 /100WBC Nucleated RBCs # 0 K/uL Lactate (0.20-2.00) mmol/L Sodium (136-145) mmol/L Potassium (3.5-5.1) mmol/L Chloride (98-107) mmol/L Carbon Dioxide (21.0-32.0) mmol/L BUN (7.0-18.0) mg/dL Creatinine (0.6-1.0) mg/dL Est Cr Clr Drug Dosing mL/min Estimated GFR (MDRD) ml/min Glucose (74-106) mg/dL Calcium (8.5-10.1) mg/dL Phosphorus (2.6-4.7) mg/dL Magnesium (1.8-2.4) mg/dL Total Bilirubin (0.2-1.0) mg/dL AST (15-37) IU/L ALT (14-63) IU/L Alkaline Phosphatase (46-116) U/L Creatine Kinase (26-308) U/L Total Protein (6.4-8.2) g/dL Albumin (3.4-5.0) g/dL Globulin (2.6-4.0) g/dL Albumin/Globulin Ratio (0.9-1.6) Lipase (73-393) U/L Urine Color YELLOW Urine Appearance CLEAR Urine pH 5.5 (5.0-8.0) Ur Specific [place] >= 1.030 (1.001-1.035) Urine Protein NEGATIVE (NEGATIVE) mg/dL Urine Glucose (UA) NEGATIVE (NEGATIVE) mg/dL Urine Ketones NEGATIVE (NEGATIVE) mg/dL Urine Occult Blood NEGATIVE (NEGATIVE) Urine Nitrite NEGATIVE (NEGATIVE) Urine Bilirubin NEGATIVE (NEGATIVE) Urine Urobilinogen 0.2 (<2.0) EU/dL Ur Leukocyte Esterase TRACE H (NEGATIVE) Urine RBC 0-2 (0-2/HPF) Urine WBC 1-4 (0-5/HPF) Ur Epithelial Cells FEW (NONE-FEW) Urine Bacteria FEW (NEGATIVE) Urine HCG, Qual NEGATIVE (NEGATIVE) SARS-CoV-2 RNA (REESE) (NEGATIVE) 04/24/20 04/24/20 04/24/20 Range/Units 06:40 06:40 08:47 WBC (4.0-11.0) K/uL RBC (4.30-5.90) M/uL Hgb (12.0-16.0) g/dL Hct (36.0-46.0) % MCV (80.0-98.0) fL MCH (27.0-32.0) pg MCHC (31.0-37.0) g/dL RDW Std Deviation (28.0-62.0) fl RDW Coeff of Buck (11.0-15.0) % Plt Count (150-400) K/uL MPV (7.40-12.00) fL Neut % (Auto) (48.0-80.0) % Lymph % (Auto) (16.0-40.0) % Dodge % (Auto) (0.0-15.0) % Eos % (Auto) (0.0-7.0) % Baso % (Auto) (0.0-1.5) % Neut # (Auto) (1.4-5.7) K/uL Lymph # (Auto) (0.6-2.4) K/uL Dodge # (Auto) (0.0-0.8) K/uL Eos # (Auto) (0.0-0.7) K/uL Baso # (Auto) (0.0-0.1) K/uL Nucleated RBC % /100WBC Nucleated RBCs # K/uL Lactate 1.3 (0.20-2.00) mmol/L Sodium 139 (136-145) mmol/L Potassium 3.8 (3.5-5.1) mmol/L Chloride 104 (98-107) mmol/L Carbon Dioxide 20.8 L (21.0-32.0) mmol/L BUN 9 (7.0-18.0) mg/dL Creatinine 0.9 (0.6-1.0) mg/dL Est Cr Clr Drug Dosing 84.96 mL/min Estimated GFR (MDRD) > 60.0 ml/min Glucose 91 (74-106) mg/dL Calcium 9.3 (8.5-10.1) mg/dL Phosphorus 3.7 (2.6-4.7) mg/dL Magnesium 1.8 (1.8-2.4) mg/dL Total Bilirubin 0.4 (0.2-1.0) mg/dL AST 17 (15-37) IU/L ALT 24 (14-63) IU/L Alkaline Phosphatase 115 (46-116) U/L Creatine Kinase 85 (26-308) U/L Total Protein 9.2 H (6.4-8.2) g/dL Albumin 4.2 (3.4-5.0) g/dL Globulin 5.0 H (2.6-4.0) g/dL Albumin/Globulin Ratio 0.8 L (0.9-1.6) Lipase 524 H (73-393) U/L Urine Color Urine Appearance Urine pH (5.0-8.0) Ur Specific [place] (1.001-1.035) Urine Protein (NEGATIVE) mg/dL Urine Glucose (UA) (NEGATIVE) mg/dL Urine Ketones (NEGATIVE) mg/dL Urine Occult Blood (NEGATIVE) Urine Nitrite (NEGATIVE) Urine Bilirubin (NEGATIVE) Urine Urobilinogen (<2.0) EU/dL Ur Leukocyte Esterase (NEGATIVE) Urine RBC (0-2/HPF) Urine WBC (0-5/HPF) Ur Epithelial Cells (NONE-FEW) Urine Bacteria (NEGATIVE) Urine HCG, Qual (NEGATIVE) SARS-CoV-2 RNA (REESE) NEGATIVE (NEGATIVE) Result Diagrams: 04/24/20 06:40 04/24/20 06:40 Rohit Results Last 24 hrs: Microbiology 04/24/20 08:20 C. difficile Antigen & Toxins A,B - Final Stool / Feces Sepsis Event Note - Evaluation Sepsis Screening Result: No Definite Risk - Focused Exam Vital Signs: Vital Signs Temp Pulse Resp BP Pulse Ox 04/24/20 10:10 76 16 107/57 L 97 04/24/20 09:15 80 16 121/75 98 04/24/20 07:47 94 16 128/59 L 100 04/24/20 05:47 37.0 C 113 H 18 124/83 100 - Problem List (1) Abdominal pain SNOMED Code(s): 83468352 ICD Code: R10.9 - UNSPECIFIED ABDOMINAL PAIN Status: Acute Current Visit: Yes Qualifiers: Abdominal location: generalized Qualified Code(s): R10.84 - Generalized abdominal pain (2) GI bleeding SNOMED Code(s): 94496967 ICD Code: K92.2 - GASTROINTESTINAL HEMORRHAGE, UNSPECIFIED Status: Acute Current Visit: No (3) History of ulcerative colitis SNOMED Code(s): 105801803 ICD Code: Z87.19 - PERSONAL HISTORY OF OTHER DISEASES OF THE DIGESTIVE SYSTEM Status: Acute Current Visit: No (4) Hx of Clostridium difficile infection SNOMED Code(s): 409040089, 735502472 ICD Code: Z86.19 - PERSONAL HISTORY OF OTHER INFECTIOUS AND PARASITIC DISEASES Status: Chronic Current Visit: No Problem List Initiated/Reviewed/Updated: Yes Orders Last 24hrs: Active Orders 24 hr Category Date Time Status Patient Status [ADT] Routine ADT 04/24/20 08:47 Active Ambulate [RC] ASDIRECTED Care 04/24/20 10:12 Active Antiembolic Devices [RC] PER UNIT ROUTINE Care 04/24/20 10:13 Active Oxygen Therapy [RC] PRN Care 04/24/20 10:12 Active RT Aerosol Therapy [RC] ASDIRECTED Care 04/24/20 10:13 Active VTE/DVT Education [RC] PER UNIT ROUTINE Care 04/24/20 10:12 Active Vital Signs [RC] Q4H Care 04/24/20 10:12 Active Nothing per Oral Now Diet [DIET] Diet 04/24/20 Breakfast Active STOOL CULTURE/SHIGA TOXIN [MREF] Stat Lab 04/24/20 08:20 Received Albuterol/Ipratropium [DuoNeb 3.0-0.5 MG/3 ML] Med 04/24/20 10:12 Ordered 3 ml NEB Q4HRRT PRN Heparin Sodium Med 04/24/20 10:15 Ordered 5,000 units SUBCUT Q8H Lactated Ringers [Ringers, Lactated] 1,000 ml Med 04/24/20 10:15 Ordered IV ASDIRECTED Morphine Med 04/24/20 10:12 Ordered 2 mg IVPUSH Q2H PRN Ondansetron [Zofran] Med 04/24/20 10:12 Ordered 4 mg IVPUSH Q4H PRN Pantoprazole [ProTONIX IV] Med 04/24/20 21:00 Ordered 40 mg IV Q12HR Sodium Chloride 0.9% [Normal Saline] 1,000 ml Med 04/24/20 08:42 Active IV .Bolus Sequential Compression Device [OM.PC] Per Unit Routine Oth 04/24/20 10:12 Ordered Resuscitation Status Routine Resus Stat 04/24/20 10:12 Ordered Medication Orders Albuterol/Ipratropium (Duoneb 3.0-0.5 Mg/3 Ml) 3 ml NEB Q4HRRT PRN PRN Reason: Shortness Of Breath/wheezing Heparin Sodium (Porcine) (Heparin Sodium) 5,000 units SUBCUT Q8H DONNIE Sodium Chloride (Normal Saline) 1,000 mls @ 125 mls/hr IV .Bolus ONE Stop: 04/24/20 16:41 Last Admin: 04/24/20 08:53 Dose: 125 mls/hr Documented by: MURDNIC Lactated Ringer's (Ringers, Lactated) 1,000 mls @ 125 mls/hr IV ASDIRECTED DONNIE Morphine Sulfate (Morphine) 2 mg IVPUSH Q2H PRN PRN Reason: Pain (severe 7-10) Stop: 04/25/20 10:13 Ondansetron HCl (Zofran) 4 mg IVPUSH Q4H PRN PRN Reason: Nausea/Vomiting Pantoprazole Sodium (Protonix Iv) 40 mg IV Q12HR [facility] Assessment/Plan Comment:: 19 y/o F admitted for abdominal pain, rectal discharge and bleeding CT scan abdomen noted Start IV solumedrol for underlying ulcerative colitis Start IV Zosyn UA noted, obtain urine cultures obtain blood cultures f/u on stool studies IV PPI daily NPO except ice chips for now Will obtain surgical consult Will also try to reach out to [facility] for further recs given her rectal bleeding Monitor vitals closely
[2020-04-24] MEDS ORDERED: Albuterol/Ipratropium 3.0-0.5 MG/3 ML Neb Soln NEB PRN (10:30)
[2020-04-24] MEDS ORDERED: Heparin Sodium 5,000 Units/ML Vial SUBCUT SCH (10:30)
[2020-04-24] MEDS: Lactated Ringers 1,000 ML IV SCH ×3 (11:11→20:05)
[2020-04-24] MEDS: Morphine 2 MG/ML SYRINGE IVPUSH PRN ×4 (11:13→20:07)
[2020-04-24] MEDS: Ondansetron 4 MG/2 ML SDV IVPUSH PRN ×2 (11:14→17:41)
[2020-04-24] MEDS: Pantoprazole 40 MG in Sodium Chloride 0.9% 10 ML IV SCH ×2 (11:30→20:13)
--- NOTE | 2020-04-24 14:22 | PCM.CONS ---
H&P History of Present Illness - General Date of Service: 04/24/20 Admit Problem/Dx: Admission Diagnosis/Problem Admission Diagnosis/Problem Ulcerative colitis Source of Information: Patient History Limitations: Reports: No Limitations - History of Present Illness Initial Comments - Free Text/Narative: Patient is a 19-year-old female with a history of ulcerative colitis who is status post total abdominal colectomy with preservation of her rectum and diverting ileostomy in the right lower quadrant. She was diagnosed with ulcerative colitis in December 2018. Her symptoms could not be controlled medically, and she did undergo a total abdominal colectomy with preservation of her rectum in August 2019. She was scheduled to have this taken down in January 2020, but was unable to get that done. For the last several days she's been having more abdominal pain and very loose diarrhea. Normally she says there is some substance to her stools. She denies any fever or chills. She has also recently been having some nausea and vomiting. Additionally, she has noticed rectal discharge, with occasional bleeding for the past several days. She finally sought medical attention today. Duration of Symptoms: Reports: Week(s): Location: Reports: Abdomen Quality: Reports: Ache, Throbbing Severity: Moderate Improves with: Reports: Rest Worsens with: Reports: None Context: Reports: Sick Contact Associated Symptoms: Reports: Loss of Appetite, Nausea/Vomiting. Denies: Diapho resis Lower abdomen Pain Score (Numeric/FACES): 7 - Related Data Allergies/Adverse Reactions: Allergies Allergy/AdvReac Type Severity Reaction Status Date / Time No Known Allergies Allergy Verified 04/24/20 10:54 Home Medications: Home Meds . [No Known Home Meds] 04/24/20 [History] Past Medical History - Past Health History Medical/Surgical History: Denies Medical/Surgical History HEENT History: Reports: Other (See Below) Other HEENT History: tonsillitis Cardiovascular History: Reports: None Respiratory History: Reports: None Gastrointestinal History: Reports: Chronic Diarrhea, Inflammatory Bowel Disease, Other (See Below) Other Gastrointestinal History: History of Ulcerative Colitis, colectomy 2019 Genitourinary History: Reports: None GUIDE FOREIGN TOUR History: Reports: Other (See Below) Other OB/BYN History: Bacterial vaginitis, yeast infection Musculoskeletal History: Reports: None Neurological History: Reports: None Psychiatric History: Reports: ADHD Endocrine/Metabolic History: Reports: None Insulin Pump Model and Systems Project Manager: N/A Hematologic History: Reports: Anemia, Other (See Below) Other Hematologic History: Blood Transfussions 2018 Immunologic History: Reports: None Oncologic (Cancer) History: Reports: None Dermatologic History: Reports: None - Infectious Disease History Infectious Disease History: Reports: None - Past Surgical History Head Surgeries/Procedures: Reports: None HEENT Surgical History: Reports: None Cardiovascular Surgical History: Reports: None GI Surgical History: Reports: Colonoscopy, Other (See Below) Other GI Surgeries/Procedures: Fecal transplant. Total abdominal colectomy with preservation of the rectum and right lower quadrant ileostomy. Female Surgical History: Reports: None - Past Imaging History Past Imaging History: Reports: CAT Scan Social & Family History - Family History Family Medical History: No Pertinent Family History - Tobacco Use Tobacco Use Status *Q: Never Tobacco User Second Hand Smoke Exposure: No - Caffeine Use Caffeine Use: Reports: Soda Other Caffeine Use: seldom - Recreational Drug Use Recreational Drug Use: No H&P Review of Systems - Review of Systems: Review Of Systems: See Below General: Reports: Malaise, Weakness. Denies: Fever, Chills HEENT: Reports: No Symptoms Pulmonary: Denies: Shortness of Breath, Wheezing Cardiovascular: Denies: Chest Pain, Palpitations Gastrointestinal: Reports: Abdominal Pain, Bloody Stool, Diarrhea, Decreased Appetite, Nausea, Vomiting Genitourinary: Reports: Dysuria Musculoskeletal: Reports: No Symptoms Skin: Denies: Cyanosis, Jaundice, Mottled, Pallor, Diaphoresis Exam - Exam Exam: See Below - Vital Signs Vital Signs: Last Vital Signs Temp 97.8 F 04/24/20 11:21 Pulse 99 04/24/20 11:21 Resp 16 04/24/20 11:21 BP 128/77 04/24/20 11:21 Pulse Ox 100 04/24/20 11:21 Weight: 124 lb 8 oz - Exam General: Alert, Oriented, Cooperative, Mild Distress HEENT: Conjunctiva Clear, EACs Clear, Pupils Equal, Pupils Reactive. No: Scleral Icterus Neck: Supple, Trachea Midline Lungs: Clear to Auscultation, Normal Respiratory Effort Cardiovascular: Regular Rate, Regular Rhythm GI/Abdominal Exam: Normal Bowel Sounds, Soft, No Distention, Tender, Other (RLQ ileostomy). No: Guarding, Rigid, Rebound (Female) Exam: Deferred Rectal (Female) Exam: Deferred Back Exam: Normal Inspection, Full Range of Motion Peripheral Pulses: 4+: Posterior Tibial (L), Posterior Tibial (R), Dorsalis Pedis (L), Dorsalis Pedis (R) Skin: Warm, Dry, Intact Neurological: Cranial Nerves Intact, Reflexes Equal Bilateral Psychiatric: Alert, Anxious - Patient Data Lab Results Last 24 hrs: Laboratory Results - last 24 hr 04/24/20 04/24/20 04/24/20 Range/Units 05:44 05:44 06:40 WBC 9.66 (4.0-11.0) K/uL RBC 5.36 (4.30-5.90) M/uL Hgb 13.0 (12.0-16.0) g/dL Hct 40.7 (36.0-46.0) % MCV 75.9 L (80.0-98.0) fL MCH 24.3 L (27.0-32.0) pg MCHC 31.9 (31.0-37.0) g/dL RDW Std Deviation 43.9 (28.0-62.0) fl RDW Coeff of Buck 16 H (11.0-15.0) % Plt Count 469 H (150-400) K/uL MPV 10.50 (7.40-12.00) fL Neut % (Auto) 70.6 (48.0-80.0) % Lymph % (Auto) 20.0 (16.0-40.0) % [place] % (Auto) 8.0 (0.0-15.0) % Eos % (Auto) 1.0 (0.0-7.0) % Baso % (Auto) 0.4 (0.0-1.5) % Neut # (Auto) 6.8 H (1.4-5.7) K/uL Lymph # (Auto) 1.9 (0.6-2.4) K/uL [place]y # (Auto) 0.8 (0.0-0.8) K/uL Eos # (Auto) 0.1 (0.0-0.7) K/uL Baso # (Auto) 0.0 (0.0-0.1) K/uL Nucleated RBC % 0.0 /100WBC Nucleated RBCs # 0 K/uL Lactate (0.20-2.00) mmol/L Sodium (136-145) mmol/L Potassium (3.5-5.1) mmol/L Chloride (98-107) mmol/L Carbon Dioxide (21.0-32.0) mmol/L BUN (7.0-18.0) mg/dL Creatinine (0.6-1.0) mg/dL Est Cr Clr Drug Dosing mL/min Estimated GFR (MDRD) ml/min Glucose (74-106) mg/dL Calcium (8.5-10.1) mg/dL Phosphorus (2.6-4.7) mg/dL Magnesium (1.8-2.4) mg/dL Total Bilirubin (0.2-1.0) mg/dL AST (15-37) IU/L ALT (14-63) IU/L Alkaline Phosphatase (46-116) U/L Creatine Kinase (26-308) U/L Total Protein (6.4-8.2) g/dL Albumin (3.4-5.0) g/dL Globulin (2.6-4.0) g/dL Albumin/Globulin Ratio (0.9-1.6) Lipase (73-393) U/L Urine Color YELLOW Urine Appearance CLEAR Urine pH 5.5 (5.0-8.0) Ur Specific [place] >= 1.030 (1.001-1.035) Urine Protein NEGATIVE (NEGATIVE) mg/dL Urine Glucose (UA) NEGATIVE (NEGATIVE) mg/dL Urine Ketones NEGATIVE (NEGATIVE) mg/dL Urine Occult Blood NEGATIVE (NEGATIVE) Urine Nitrite NEGATIVE (NEGATIVE) Urine Bilirubin NEGATIVE (NEGATIVE) Urine Urobilinogen 0.2 (<2.0) EU/dL Ur Leukocyte Esterase TRACE H (NEGATIVE) Urine RBC 0-2 (0-2/HPF) Urine WBC 1-4 (0-5/HPF) Ur Epithelial Cells FEW (NONE-FEW) Urine Bacteria FEW (NEGATIVE) Urine HCG, Qual NEGATIVE (NEGATIVE) SARS-CoV-2 RNA (REESE) (NEGATIVE) 04/24/20 04/24/20 04/24/20 Range/Units 06:40 06:40 08:47 WBC (4.0-11.0) K/uL RBC (4.30-5.90) M/uL Hgb (12.0-16.0) g/dL Hct (36.0-46.0) % MCV (80.0-98.0) fL MCH (27.0-32.0) pg MCHC (31.0-37.0) g/dL RDW Std Deviation (28.0-62.0) fl RDW Coeff of Buck (11.0-15.0) % Plt Count (150-400) K/uL MPV (7.40-12.00) fL Neut % (Auto) (48.0-80.0) % Lymph % (Auto) (16.0-40.0) % [place]offey % (Auto) (0.0-15.0) % Eos % (Auto) (0.0-7.0) % Baso % (Auto) (0.0-1.5) % Neut # (Auto) (1.4-5.7) K/uL Lymph # (Auto) (0.6-2.4) K/uL [place]y # (Auto) (0.0-0.8) K/uL Eos # (Auto) (0.0-0.7) K/uL Baso # (Auto) (0.0-0.1) K/uL Nucleated RBC % /100WBC Nucleated RBCs # K/uL Lactate 1.3 (0.20-2.00) mmol/L Sodium 139 (136-145) mmol/L Potassium 3.8 (3.5-5.1) mmol/L Chloride 104 (98-107) mmol/L Carbon Dioxide 20.8 L (21.0-32.0) mmol/L BUN 9 (7.0-18.0) mg/dL Creatinine 0.9 (0.6-1.0) mg/dL Est Cr Clr Drug Dosing 84.96 mL/min Estimated GFR (MDRD) > 60.0 ml/min Glucose 91 (74-106) mg/dL Calcium 9.3 (8.5-10.1) mg/dL Phosphorus 3.7 (2.6-4.7) mg/dL Magnesium 1.8 (1.8-2.4) mg/dL Total Bilirubin 0.4 (0.2-1.0) mg/dL AST 17 (15-37) IU/L ALT 24 (14-63) IU/L Alkaline Phosphatase 115 (46-116) U/L Creatine Kinase 85 (26-308) U/L Total Protein 9.2 H (6.4-8.2) g/dL Albumin 4.2 (3.4-5.0) g/dL Globulin 5.0 H (2.6-4.0) g/dL Albumin/Globulin Ratio 0.8 L (0.9-1.6) Lipase 524 H (73-393) U/L Urine Color Urine Appearance Urine pH (5.0-8.0) Ur Specific [place] (1.001-1.035) Urine Protein (NEGATIVE) mg/dL Urine Glucose (UA) (NEGATIVE) mg/dL Urine Ketones (NEGATIVE) mg/dL Urine Occult Blood (NEGATIVE) Urine Nitrite (NEGATIVE) Urine Bilirubin (NEGATIVE) Urine Urobilinogen (<2.0) EU/dL Ur Leukocyte Esterase (NEGATIVE) Urine RBC (0-2/HPF) Urine WBC (0-5/HPF) Ur Epithelial Cells (NONE-FEW) Urine Bacteria (NEGATIVE) Urine HCG, Qual (NEGATIVE) SARS-CoV-2 RNA (REESE) NEGATIVE (NEGATIVE) Result Diagrams: 04/24/20 06:40 04/24/20 06:40 Rohit Results Last 24 hrs: Microbiology 04/24/20 06:40 Anaerobic Blood Culture - Final Blood - Venous 04/24/20 08:20 C. difficile Antigen & Toxins A,B - Final Stool / Feces Imaging Impressions Last 24 hrs: CT scan has personally been reviewed. She does appear to have a large amount of fluid present in the distal small bowel, along with small bowel wall thickening. Sepsis Event Note - Evaluation Sepsis Screening Result: No Definite Risk - Focused Exam Vital Signs: Vital Signs Temp Pulse Resp BP Pulse Ox 04/24/20 11:21 97.8 F 99 16 128/77 100 04/24/20 10:10 76 16 107/57 L 97 04/24/20 09:15 80 16 121/75 98 04/24/20 07:47 94 16 128/59 L 100 04/24/20 05:47 98.6 F 113 H 18 124/83 100 Consult PN Assessment/Plan Procedures: Procedures AGENT NOS ASSAY W/OPTIC (02/08/19) ALANINE AMINO (ALT) (SGPT) (02/08/19) ASSAY ALKALINE PHOSPHATASE (02/08/19) ASSAY OF LACTIC ACID (06/20/19) ASSAY OF MAGNESIUM (06/20/19) ASSAY OF PHOSPHORUS (02/08/19) ASSAY OF TROPONIN QUANT (02/08/19) BLOOD CULTURE FOR BACTERIA (02/08/19) C-REACTIVE PROTEIN (02/08/19) CHORIONIC GONADOTROPIN ASSAY (05/19/19) CLOSTRIDIUM AG IA (02/08/19) COMPLETE CBC W/AUTO DIFF WBC (06/20/19) COMPREHEN METABOLIC PANEL (06/20/19) CRYPTOSPORIDIUM AG IA (02/08/19) CT ABD & PELV W/CONTRAST (05/19/19) CULTURE SCREEN ONLY (05/16/19) EMERGENCY DEPT VISIT (06/20/19) EMERGENCY DEPT VISIT (05/19/19) EMERGENCY DEPT VISIT (05/16/19) EMERGENCY DEPT VISIT (02/08/19) EMERGENCY DEPT VISIT (05/13/18) GIARDIA AG IA (02/08/19) HEMOGLOBIN (02/08/19) HYDRATE IV INFUSION ADD-ON (06/20/19) HYDRATION IV INFUSION INIT (02/08/19) INFLUENZA ASSAY W/OPTIC (05/16/19) METABOLIC PANEL TOTAL CA (02/08/19) PROTHROMBIN TIME (06/20/19) ROUTINE VENIPUNCTURE (06/20/19) STOOL CULTR AEROBIC BACT EA (02/08/19) STREP A ASSAY W/OPTIC (05/16/19) THER/PROPH/DIAG INJ IV PUSH (05/19/19) THER/PROPH/DIAG IV INF INIT (06/20/19) TRANSFERASE (AST) (SGOT) (02/08/19) TX/PRO/DX INJ NEW DRUG ADDON (06/20/19) URINALYSIS AUTO W/SCOPE (05/19/19) URINE TEST (02/08/19) (1) Enteritis SNOMED Code(s): 90479803 Code(s): K52.9 - NONINFECTIVE GASTROENTERITIS AND COLITIS, UNSPECIFIED Priority: High Current Visit: Yes (2) Abdominal pain SNOMED Code(s): 45768884 Code(s): R10.9 - UNSPECIFIED ABDOMINAL PAIN Priority: Medium Current Visit: Yes Qualifiers: Abdominal location: generalized Qualified Code(s): R10.84 - Generalized abdominal pain (3) Colitis SNOMED Code(s): 25019494 Code(s): K52.9 - NONINFECTIVE GASTROENTERITIS AND COLITIS, UNSPECIFIED Priority: High Current Visit: No (4) Diarrhea SNOMED Code(s): 38601697 Code(s): R19.7 - DIARRHEA, UNSPECIFIED Priority: High Current Visit: No Qualifiers: Diarrhea type: unspecified type Qualified Code(s): R19.7 - Diarrhea, unspecified (5) GI bleeding SNOMED Code(s): 52372162 Code(s): K92.2 - GASTROINTESTINAL HEMORRHAGE, UNSPECIFIED Priority: Medium Current Visit: No Qualifiers: GI bleed type/associated pathology: anorectal hemorrhage Qualified Code(s): K62.5 - Hemorrhage of anus and rectum Problem List Initiated/Reviewed/Updated: Yes Plan: Patient presents with a complicated history, having undergone total abdominal colectomy preservation of the rectum and right lower quadrant ileostomy. She has started having more diarrhea along with mucousy, bloody discharge from her rectum. It may well be that she is having a flare of her colitis limited to the rectum, along with new development of enteritis. It would be reasonable to consider using either cortisone suppositories or cortisone enemas if that is acceptable to her gastroenterologic and surgical services at [facility]. If her symptoms continue to improve, I think we could keep her here on steroids as you have done. If her symptoms worsen, I think she will need to be transferred back to [facility] for consideration for further medical management and/or surgery.
[2020-04-24] MEDS: Piperacillin/Tazobactam 3.375 GM in Sodium Chloride 0.9% 50 ML IV SCH (14:25)
--- NOTE | 2020-04-24 14:31 | PCM.SN.2 ---
- Free Text/Narrative Note: As far as I am concerned, she may have ice chips and sips of water only.
--- NOTE | 2020-04-24 15:31 | PCM.SN.2 ---
- Free Text/Narrative Note: Spoke to Dr Chacon of GI at [place], [place] regarding patients case. 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 Mentions bleeding could also be hemorrhoidal and will recommend Cortisone suppository. GI also mentioned the wall thickening at distal ileum could be an "over-read" as this is usually post-operative changes for this type of procedure. Can consider higher level of care if changes in symptomatology occur We appreciate [facility] [place] help with this matter
[2020-04-24] MEDS ORDERED: HYDROCORTISONE RC SCH (18:00)
[2020-04-24] MEDS ORDERED: PRAMOXINE RC SCH (18:00)
[2020-04-24] MEDS ORDERED: Pantoprazole 40 MG Vial IV SCH (21:00)
[2020-04-25] MEDS: Hydrocortisone 1% Crm 30 GM Tube TOP SCH ×4 (00:44→21:14)
[2020-04-25] MEDS: Morphine 2 MG/ML SYRINGE IVPUSH PRN ×6 (00:46→21:10)
[2020-04-25] MEDS: Piperacillin/Tazobactam 3.375 GM in Sodium Chloride 0.9% 50 ML IV SCH ×4 (00:54→22:26)
[2020-04-25] MEDS: Lactated Ringers 1,000 ML IV SCH ×5 (04:23→21:14)
[2020-04-25 06:53] LABS: BLOOD UREA NITROGEN,BUN 6 mg/dL (7.0-18.0); CARBON DIOXIDE,CO2 23.6 mmol/L (21.0-32.0); CHLORIDE,CL 105 mmol/L (98-107); GLUCOSE RANDOM 77 mg/dL (74-106); POTASSIUM,K 3.4 mmol/L (3.5-5.1); SODIUM,NA 139 mmol/L (136-145)
[2020-04-25] MEDS: Pantoprazole 40 MG in Sodium Chloride 0.9% 10 ML IV SCH ×2 (08:46→21:17)
[2020-04-25] MEDS: Ondansetron 4 MG/2 ML SDV IVPUSH PRN (10:33)
--- NOTE | 2020-04-25 11:27 | PCM.CONSN ---
- General Info Date of Service: 04/25/20 Admission Dx/Problem (Free Text): Admission Diagnosis/Problem Admission Diagnosis/Problem Ulcerative colitis Subjective Update: Patient is feeling a little bit better this morning. She still complains of abdominal tenderness but she is starting to develop an appetite. She continues to have loose watery stools through her ileostomy appliance. Functional Status: Reports: Pain Controlled, Ambulating - Review of Systems General: Denies: Fever, Weakness, Fatigue HEENT: Reports: No Symptoms Pulmonary: Denies: Shortness of Breath, Wheezing Cardiovascular: Denies: Chest Pain Gastrointestinal: Reports: Abdominal Pain, Decreased Appetite, Diarrhea, Vomiting. Denies: Constipation, Nausea Genitourinary: Reports: No Symptoms Musculoskeletal: Reports: No Symptoms Skin: Denies: Cyanosis, Jaundice Neurological: Reports: No Symptoms Psychiatric: Reports: No Symptoms - Patient Data Vitals - Most Recent: Last Vital Signs Temp 99.4 F 04/25/20 08:45 Pulse 80 04/25/20 08:45 Resp 16 04/25/20 08:45 BP 115/54 L 04/25/20 08:45 Pulse Ox 100 04/25/20 08:45 Weight - Most Recent: 124 lb 8 oz I&O - Last 24 Hours: Intake & Output 04/24/20 04/25/20 04/25/20 19:59 03:59 11:59 Intake Total 25 10 2198 Output Total 800 400 Balance -986 61 4483 Lab Results Last 24 Hours: Laboratory Results - last 24 hr 04/25/20 04/25/20 Range/Units 06:05 06:05 WBC 7.56 (4.0-11.0) K/uL RBC 4.12 L (4.30-5.90) M/uL Hgb 10.0 L (12.0-16.0) g/dL Hct 31.1 L (36.0-46.0) % MCV 75.5 L (80.0-98.0) fL MCH 24.3 L (27.0-32.0) pg MCHC 32.2 (31.0-37.0) g/dL RDW Std Deviation 43.9 (28.0-62.0) fl RDW Coeff of Buck 16 H (11.0-15.0) % Plt Count 390 (150-400) K/uL MPV 10.80 (7.40-12.00) fL Neut % (Auto) 48.7 (48.0-80.0) % Lymph % (Auto) 39.0 (16.0-40.0) % [place] % (Auto) 11.1 (0.0-15.0) % Eos % (Auto) 0.8 (0.0-7.0) % Baso % (Auto) 0.4 (0.0-1.5) % Neut # (Auto) 3.7 (1.4-5.7) K/uL Lymph # (Auto) 3.0 H (0.6-2.4) K/uL [place] # (Auto) 0.8 (0.0-0.8) K/uL Eos # (Auto) 0.1 (0.0-0.7) K/uL Baso # (Auto) 0.0 (0.0-0.1) K/uL Nucleated RBC % 0.0 /100WBC Nucleated RBCs # 0 K/uL Sodium 139 (136-145) mmol/L Potassium 3.4 L (3.5-5.1) mmol/L Chloride 105 (98-107) mmol/L Carbon Dioxide 23.6 (21.0-32.0) mmol/L BUN 6 L (7.0-18.0) mg/dL Creatinine 0.9 (0.6-1.0) mg/dL Est Cr Clr Drug Dosing 85.38 mL/min Estimated GFR (MDRD) > 60.0 ml/min Glucose 77 (74-106) mg/dL Calcium 8.4 L (8.5-10.1) mg/dL Phosphorus 3.1 (2.6-4.7) mg/dL Magnesium 1.6 L (1.8-2.4) mg/dL Rohit Results Last 24 Hours: Microbiology 04/24/20 06:40 Anaerobic Blood Culture - Final Blood - Venous 04/24/20 08:20 C. difficile Antigen & Toxins A,B - Final Stool / Feces Med Orders - Current: Current Medications Albuterol/Ipratropium (Duoneb 3.0-0.5 Mg/3 Ml) 3 ml NEB Q4HRRT PRN PRN Reason: Shortness Of Breath/wheezing Hydrocortisone (Hydrocortisone 1% Crm) 0 gm TOP TID DONNIE Last Admin: 04/25/20 06:26 Dose: Not Given Documented by: Lactated Ringer's (Ringers, Lactated) 1,000 mls @ 125 mls/hr IV Q8H [facility] Last Admin: 04/25/20 10:33 Dose: Not Given Documented by: Pantoprazole Sodium 40 mg/ (Sodium Chloride) 10 mls @ 200 mls/hr IV Q12HR [facility] Last Admin: 04/25/20 08:46 Dose: 200 mls/hr Documented by: Piperacillin Sod/Tazobactam (Sod 3.375 gm/ Sodium Chloride) 50 mls @ 100 mls/hr IV Q8H [facility] Last Admin: 04/25/20 05:31 Dose: 100 mls/hr Documented by: Ondansetron HCl (Zofran) 4 mg IVPUSH Q4H PRN PRN Reason: Nausea/Vomiting Last Admin: 04/25/20 10:33 Dose: 4 mg Documented by: Discontinued Medications Heparin Sodium (Porcine) (Heparin Sodium) 5,000 units SUBCUT Q8H [facility] Last Admin: 04/24/20 11:31 Dose: 5,000 units Documented by: Hydrocortisone/Pramoxine (Proctofoam-Hc 1%-1% Foam) 0 gm RC QID [facility] Hydromorphone HCl (Dilaudid) 1 mg IVPUSH ONETIME ONE Stop: 04/24/20 06:05 Last Admin: 04/24/20 06:46 Dose: 1 mg Documented by: Hydromorphone HCl (Dilaudid) 1 mg IVPUSH ONETIME ONE Stop: 04/24/20 08:38 Last Admin: 04/24/20 08:47 Dose: 1 mg Documented by: Sodium Chloride (Normal Saline) 1,000 mls @ 999 mls/hr IV .BOLUS ONE Stop: 04/24/20 07:04 Last Admin: 04/24/20 06:45 Dose: 999 mls/hr Documented by: Sodium Chloride (Normal Saline) 1,000 mls @ 125 mls/hr IV .Bolus ONE Stop: 04/24/20 16:41 Last Admin: 04/24/20 08:53 Dose: 125 mls/hr Documented by: Iopamidol (Isovue Multipack-370 (76%)) 100 ml IVPUSH ONETIME STA Stop: 04/24/20 07:26 Last Admin: 04/24/20 07:25 Dose: 100 ml Documented by: Methylprednisolone Sodium Succinate (Solu-Medrol) 40 mg IVPUSH ONETIME ONE Stop: 04/24/20 08:46 Last Admin: 04/24/20 08:53 Dose: 40 mg Documented by: Morphine Sulfate (Morphine) 2 mg IVPUSH Q2H PRN PRN Reason: Pain (severe 7-10) Stop: 04/25/20 10:31 Last Admin: 04/25/20 11:06 Dose: 2 mg Documented by: Ondansetron HCl (Zofran) 4 mg IVPUSH ONETIME ONE Stop: 04/24/20 07:34 Last Admin: 04/24/20 07:39 Dose: 4 mg Documented by: - Exam General: Alert, Oriented, Cooperative, Mild Distress HEENT: Pupils Equal, Pupils Reactive. No: Scleral Icterus Neck: Supple Lungs: Clear to Auscultation, Normal Respiratory Effort Cardiovascular: Regular Rate, Regular Rhythm GI/Abdominal Exam: Normal Bowel Sounds, Soft, Tender. No: Guarding, Rigid, Rebound (Female) Exam: Deferred Back Exam: Normal Inspection Extremities: Normal Inspection, Normal Range of Motion Skin: Warm, Dry, Intact Neurological: No New Focal Deficit Psy/Mental Status: Alert, Normal Affect, Normal Mood Sepsis Event Note - Evaluation Sepsis Screening Result: No Definite Risk - Focused Exam Vital Signs: Vital Signs Temp Pulse Resp BP Pulse Ox 04/25/20 08:45 99.4 F 80 16 115/54 L 100 04/25/20 04:00 98.4 F 71 16 100/59 L 98 04/25/20 00:00 97.8 F 72 16 103/69 96 Consult PN Assessment/Plan Procedures: Procedures AGENT NOS ASSAY W/OPTIC (02/08/19) ALANINE AMINO (ALT) (SGPT) (02/08/19) ASSAY ALKALINE PHOSPHATASE (02/08/19) ASSAY OF LACTIC ACID (06/20/19) ASSAY OF MAGNESIUM (06/20/19) ASSAY OF PHOSPHORUS (02/08/19) ASSAY OF TROPONIN QUANT (02/08/19) BLOOD CULTURE FOR BACTERIA (02/08/19) C-REACTIVE PROTEIN (02/08/19) CHORIONIC GONADOTROPIN ASSAY (05/19/19) CLOSTRIDIUM AG IA (02/08/19) COMPLETE CBC W/AUTO DIFF WBC (06/20/19) COMPREHEN METABOLIC PANEL (06/20/19) CRYPTOSPORIDIUM AG IA (02/08/19) CT ABD & PELV W/CONTRAST (05/19/19) CULTURE SCREEN ONLY (05/16/19) EMERGENCY DEPT VISIT (06/20/19) EMERGENCY DEPT VISIT (05/19/19) EMERGENCY DEPT VISIT (05/16/19) EMERGENCY DEPT VISIT (02/08/19) EMERGENCY DEPT VISIT (05/13/18) GIARDIA AG IA (02/08/19) HEMOGLOBIN (02/08/19) HYDRATE IV INFUSION ADD-ON (06/20/19) HYDRATION IV INFUSION INIT (02/08/19) INFLUENZA ASSAY W/OPTIC (05/16/19) METABOLIC PANEL TOTAL CA (02/08/19) PROTHROMBIN TIME (06/20/19) ROUTINE VENIPUNCTURE (06/20/19) STOOL CULTR AEROBIC BACT EA (02/08/19) STREP A ASSAY W/OPTIC (05/16/19) THER/PROPH/DIAG INJ IV PUSH (05/19/19) THER/PROPH/DIAG IV INF INIT (06/20/19) TRANSFERASE (AST) (SGOT) (02/08/19) TX/PRO/DX INJ NEW DRUG ADDON (06/20/19) URINALYSIS AUTO W/SCOPE (05/19/19) URINE TEST (02/08/19) (1) Enteritis SNOMED Code(s): 62204482 Code(s): K52.9 - NONINFECTIVE GASTROENTERITIS AND COLITIS, UNSPECIFIED Priority: High Current Visit: Yes (2) Abdominal pain SNOMED Code(s): 73698162 Code(s): R10.9 - UNSPECIFIED ABDOMINAL PAIN Priority: Medium Current Visit: Yes Qualifiers: Abdominal location: generalized Qualified Code(s): R10.84 - Generalized abd ominal pain (3) Colitis SNOMED Code(s): 45432144 Code(s): K52.9 - NONINFECTIVE GASTROENTERITIS AND COLITIS, UNSPECIFIED Priority: High Current Visit: No (4) Diarrhea SNOMED Code(s): 40204490 Code(s): R19.7 - DIARRHEA, UNSPECIFIED Priority: High Current Visit: No Qualifiers: Diarrhea type: unspecified type Qualified Code(s): R19.7 - Diarrhea, unspecified (5) GI bleeding SNOMED Code(s): 17816497 Code(s): K92.2 - GASTROINTESTINAL HEMORRHAGE, UNSPECIFIED Priority: Medium Current Visit: No Qualifiers: GI bleed type/associated pathology: anorectal hemorrhage Qualified Code(s): K62.5 - Hemorrhage of anus and rectum Problem List Initiated/Reviewed/Updated: Yes Plan: Patient overall is feeling better. She is starting to develop a bit of an appetite. I think she could start on a clear to full liquid diet as she tolerates. If she has any further episodes of rectal bleeding. I would certainly consider a cortisone suppository.
[2020-04-25] MEDS ORDERED: Magnesium Sulfate/Water 2 GM/50 ML Premix Bag IV ONE (11:58)
[2020-04-25] MEDS ORDERED: Sodium Chloride 0.9% with KCl 1,000 ML IV SCH (12:00)
--- NOTE | 2020-04-25 12:01 | PCM.PN ---
- General Info Date of Service: 04/25/20 - Review of Systems Systems Review Comment:: reports abdominal pain and nausea improving. - Patient Data Vitals - Most Recent: Last Vital Signs Temp 37.4 C 04/25/20 08:45 Pulse 80 04/25/20 08:45 Resp 16 04/25/20 08:45 BP 115/54 L 04/25/20 08:45 Pulse Ox 100 04/25/20 08:45 Weight - Most Recent: 56.472 kg I&O - Last 24 Hours: Intake & Output 04/24/20 04/25/20 04/25/20 22:59 06:59 14:59 Intake Total 35 2198 Output Total 800 400 Balance -765 1798 Lab Results Last 24 Hours: Laboratory Results - last 24 hr 04/25/20 04/25/20 Range/Units 06:05 06:05 WBC 7.56 (4.0-11.0) K/uL RBC 4.12 L (4.30-5.90) M/uL Hgb 10.0 L (12.0-16.0) g/dL Hct 31.1 L (36.0-46.0) % MCV 75.5 L (80.0-98.0) fL MCH 24.3 L (27.0-32.0) pg MCHC 32.2 (31.0-37.0) g/dL RDW Std Deviation 43.9 (28.0-62.0) fl RDW Coeff of Buck 16 H (11.0-15.0) % Plt Count 390 (150-400) K/uL MPV 10.80 (7.40-12.00) fL Neut % (Auto) 48.7 (48.0-80.0) % Lymph % (Auto) 39.0 (16.0-40.0) % [place] % (Auto) 11.1 (0.0-15.0) % Eos % (Auto) 0.8 (0.0-7.0) % Baso % (Auto) 0.4 (0.0-1.5) % Neut # (Auto) 3.7 (1.4-5.7) K/uL Lymph # (Auto) 3.0 H (0.6-2.4) K/uL [place] # (Auto) 0.8 (0.0-0.8) K/uL Eos # (Auto) 0.1 (0.0-0.7) K/uL Baso # (Auto) 0.0 (0.0-0.1) K/uL Nucleated RBC % 0.0 /100WBC Nucleated RBCs # 0 K/uL Sodium 139 (136-145) mmol/L Potassium 3.4 L (3.5-5.1) mmol/L Chloride 105 (98-107) mmol/L Carbon Dioxide 23.6 (21.0-32.0) mmol/L BUN 6 L (7.0-18.0) mg/dL Creatinine 0.9 (0.6-1.0) mg/dL Est Cr Clr Drug Dosing 85.38 mL/min Estimated GFR (MDRD) > 60.0 ml/min Glucose 77 (74-106) mg/dL Calcium 8.4 L (8.5-10.1) mg/dL Phosphorus 3.1 (2.6-4.7) mg/dL Magnesium 1.6 L (1.8-2.4) mg/dL Rohit Results Last 24 Hours: Microbiology 04/24/20 06:40 Anaerobic Blood Culture - Final Blood - Venous 04/24/20 08:20 C. difficile Antigen & Toxins A,B - Final Stool / Feces Med Orders - Current: Current Medications Albuterol/Ipratropium (Duoneb 3.0-0.5 Mg/3 Ml) 3 ml NEB Q4HRRT PRN PRN Reason: Shortness Of Breath/wheezing Hydrocortisone (Hydrocortisone 1% Crm) 0 gm TOP TID [facility] Last Admin: 04/25/20 06:26 Dose: Not Given Documented by: Lactated Ringer's (Ringers, Lactated) 1,000 mls @ 125 mls/hr IV Q8H [facility] Last Admin: 04/25/20 10:33 Dose: Not Given Documented by: Pantoprazole Sodium 40 mg/ (Sodium Chloride) 10 mls @ 200 mls/hr IV Q12HR [facility] Last Admin: 04/25/20 08:46 Dose: 200 mls/hr Documented by: Piperacillin Sod/Tazobactam (Sod 3.375 gm/ Sodium Chloride) 50 mls @ 100 mls/hr IV Q8H [facility] Last Admin: 04/25/20 05:31 Dose: 100 mls/hr Documented by: Potassium Chloride/Sodium Chloride (Normal Saline With 40 Meq Kcl) 1,000 mls @ 150 mls/hr IV ASDIRECTED [facility] Stop: 04/25/20 18:39 Magnesium Sulfate (Magnesium Sulfate In Water 2 Gm/50 Ml) 2 gm IV ONETIME ONE Stop: 04/25/20 11:59 Ondansetron HCl (Zofran) 4 mg IVPUSH Q4H PRN PRN Reason: Nausea/Vomiting Last Admin: 04/25/20 10:33 Dose: 4 mg Documented by: Discontinued Medications Heparin Sodium (Porcine) (Heparin Sodium) 5,000 units SUBCUT Q8H [facility] Last Admin: 04/24/20 11:31 Dose: 5,000 units Documented by: Hydrocortisone/Pramoxine (Proctofoam-Hc 1%-1% Foam) 0 gm RC QID [facility] Hydromorphone HCl (Dilaudid) 1 mg IVPUSH ONETIME ONE Stop: 04/24/20 06:05 Last Admin: 04/24/20 06:46 Dose: 1 mg Documented by: Hydromorphone HCl (Dilaudid) 1 mg IVPUSH ONETIME ONE Stop: 04/24/20 08:38 Last Admin: 04/24/20 08:47 Dose: 1 mg Documented by: Sodium Chloride (Normal Saline) 1,000 mls @ 999 mls/hr IV .BOLUS ONE Stop: 04/24/20 07:04 Last Admin: 04/24/20 06:45 Dose: 999 mls/hr Documented by: Sodium Chloride (Normal Saline) 1,000 mls @ 125 mls/hr IV .Bolus ONE Stop: 04/24/20 16:41 Last Admin: 04/24/20 08:53 Dose: 125 mls/hr Documented by: Iopamidol (Isovue Multipack-370 (76%)) 100 ml IVPUSH ONETIME STA Stop: 04/24/20 07:26 Last Admin: 04/24/20 07:25 Dose: 100 ml Documented by: Methylprednisolone Sodium Succinate (Solu-Medrol) 40 mg IVPUSH ONETIME ONE Stop: 04/24/20 08:46 Last Admin: 04/24/20 08:53 Dose: 40 mg Documented by: Morphine Sulfate (Morphine) 2 mg IVPUSH Q2H PRN PRN Reason: Pain (severe 7-10) Stop: 04/25/20 10:31 Last Admin: 04/25/20 11:06 Dose: 2 mg Documented by: Ondansetron HCl (Zofran) 4 mg IVPUSH ONETIME ONE Stop: 04/24/20 07:34 Last Admin: 04/24/20 07:39 Dose: 4 mg Documented by: - Exam General: Alert, Oriented Neck: Supple Lungs: Clear to Auscultation, Normal Respiratory Effort Cardiovascular: Regular Rate, Regular Rhythm GI/Abdominal Exam: Soft, Non-Tender, No Distention Extremities: Non-Tender, No Pedal Edema Sepsis Event Note - Evaluation Sepsis Screening Result: No Definite Risk - Focused Exam Vital Signs: Vital Signs Temp Pulse Resp BP Pulse Ox 04/25/20 08:45 37.4 C 80 16 115/54 L 100 04/25/20 04:00 36.9 C 71 16 100/59 L 98 04/25/20 00:00 36.6 C 72 16 103/69 96 - Problem List Review Problem List Initiated/Reviewed/Updated: Yes - My Orders Last 24 Hours: My Active Orders 04/25/20 Breakfast Clear Liquid Diet [DIET] 04/25/20 11:58 Magnesium Sulfate/Water [Magnesium Sulfate in Water 2 GM/50 ML] 2 gm IV ONETIME ONE 04/25/20 11:59 methylPREDNISolone Sod Succ [Solu-MEDROL] 40 mg IVPUSH ONETIME ONE 04/25/20 12:00 Sodium Chloride 0.9% with KCl 40 mEq @ Enter Rate (1000 mL) Sodium Chloride 0.9% with KCl [Normal Saline with 40 mEq KCl] 1,000 ml IV ASDIRECTED - Plan Plan:: 19 y/o F admitted for abdominal pain, rectal discharge and bleeding Will continue IV fluids, Zosyn and solumedrol for ulcerative colitis flair with steroid suppositories when available. Will try clear liquid diet.
[2020-04-25] MEDS ORDERED: methylPREDNISolone Sodium Succinate 40 MG/1 ML SDV IVPUSH ONE (12:05)
[2020-04-25] MEDS ORDERED: Magnesium Sulfate/Water 2 GM/50 ML BAG IV ONE (12:05)
[2020-04-26] MEDS: Morphine 2 MG/ML SYRINGE IVPUSH PRN ×4 (01:52→20:16)
[2020-04-26] MEDS: Piperacillin/Tazobactam 3.375 GM in Sodium Chloride 0.9% 50 ML IV SCH ×3 (05:54→21:32)
[2020-04-26] MEDS: Hydrocortisone 1% Crm 30 GM Tube TOP SCH ×3 (05:54→21:40)
[2020-04-26 06:39] LABS: BLOOD UREA NITROGEN,BUN 7 mg/dL (7.0-18.0); CARBON DIOXIDE,CO2 24.7 mmol/L (21.0-32.0); CHLORIDE,CL 103 mmol/L (98-107); GLUCOSE RANDOM 69 mg/dL (74-106); SODIUM,NA 137 mmol/L (136-145)
[2020-04-26] MEDS: Lactated Ringers 1,000 ML IV SCH ×4 (06:48→17:24)
[2020-04-26] MEDS: Pantoprazole 40 MG in Sodium Chloride 0.9% 10 ML IV SCH ×2 (08:14→21:29)
--- NOTE | 2020-04-26 10:11 | PCM.PN ---
- General Info Date of Service: 04/26/20 Admission Dx/Problem (Free Text): Admission Diagnosis/Problem Admission Diagnosis/Problem Ulcerative colitis Subjective Update: Continues to report lower abdominal pain. Stools and ileostomy continues to be loose and dark in color. No black or bloody bowel movement in ostomy. She reports mild rectal discharge but has not noticed blood in at least 24 hours. Denies any chest pain or shortness of breath. Reports she is tolerating clear liquid diet well. Functional Status: Reports: Pain Controlled, Tolerating Diet, Ambulating, Urinating - Review of Systems General: Reports: No Symptoms. Denies: Fatigue, Malaise Pulmonary: Reports: No Symptoms. Denies: Shortness of Breath Cardiovascular: Reports: No Symptoms. Denies: Chest Pain Gastrointestinal: Reports: Abdominal Pain (Lower abdomen), Diarrhea. Denies: Nausea, Vomiting Genitourinary: Reports: No Symptoms. Denies: Dysuria, Frequency, Burning Musculoskeletal: Reports: No Symptoms Skin: Reports: No Symptoms Neurological: Reports: No Symptoms Psychiatric: Reports: No Symptoms - Patient Data Vitals - Most Recent: Last Vital Signs Temp 97.9 F 04/26/20 07:42 Pulse 67 04/26/20 07:42 Resp 16 04/26/20 07:42 BP 105/41 L 04/26/20 07:42 Pulse Ox 100 04/26/20 07:42 Weight - Most Recent: 56.472 kg I&O - Last 24 Hours: Intake & Output 04/25/20 04/26/20 04/26/20 22:59 06:59 14:59 Intake Total 930 1233 Output Total 1400 1700 Balance -470 -467 Lab Results Last 24 Hours: Laboratory Results - last 24 hr 04/26/20 04/26/20 Range/Units 05:50 05:50 WBC 9.39 (4.0-11.0) K/uL RBC 4.29 L (4.30-5.90) M/uL Hgb 10.3 L (12.0-16.0) g/dL Hct 32.6 L (36.0-46.0) % MCV 76.0 L (80.0-98.0) fL MCH 24.0 L (27.0-32.0) pg MCHC 31.6 (31.0-37.0) g/dL RDW Std Deviation 44.1 (28.0-62.0) fl RDW Coeff of Buck 16 H (11.0-15.0) % Plt Count 402 H (150-400) K/uL MPV 10.30 (7.40-12.00) fL Neut % (Auto) 58.5 (48.0-80.0) % Lymph % (Auto) 31.1 (16.0-40.0) % [place] % (Auto) 9.8 (0.0-15.0) % Eos % (Auto) 0.4 (0.0-7.0) % Baso % (Auto) 0.2 (0.0-1.5) % Neut # (Auto) 5.5 (1.4-5.7) K/uL Lymph # (Auto) 2.9 H (0.6-2.4) K/uL [place] # (Auto) 0.9 H (0.0-0.8) K/uL Eos # (Auto) 0.0 (0.0-0.7) K/uL Baso # (Auto) 0.0 (0.0-0.1) K/uL Nucleated RBC % 0.0 /100WBC Nucleated RBCs # 0 K/uL Sodium 137 (136-145) mmol/L Potassium 4.0 (3.5-5.1) mmol/L Chloride 103 (98-107) mmol/L Carbon Dioxide 24.7 (21.0-32.0) mmol/L BUN 7 (7.0-18.0) mg/dL Creatinine 0.8 (0.6-1.0) mg/dL Est Cr Clr Drug Dosing 96.06 mL/min Estimated GFR (MDRD) > 60.0 ml/min Glucose 69 L (74-106) mg/dL Calcium 9.0 (8.5-10.1) mg/dL Phosphorus 3.5 (2.6-4.7) mg/dL Magnesium 1.6 L (1.8-2.4) mg/dL Total Bilirubin 0.3 (0.2-1.0) mg/dL AST 14 L (15-37) IU/L ALT 22 (14-63) IU/L Alkaline Phosphatase 83 (46-116) U/L Total Protein 6.9 (6.4-8.2) g/dL Albumin 3.2 L (3.4-5.0) g/dL Globulin 3.7 (2.6-4.0) g/dL Albumin/Globulin Ratio 0.9 (0.9-1.6) Rohit Results Last 24 Hours: Microbiology 04/24/20 05:44 Urine Culture - Final Urine, Clean Catch MIXED [place]LEY 10,000-100,000 CFU/ML 04/24/20 14:56 Aerobic Blood Culture - Preliminary Blood - Venous - Lab Draw NO GROWTH AFTER 1 DAY Anaerobic Blood Culture - Preliminary NO GROWTH AFTER 1 DAY 04/24/20 06:40 Aerobic Blood Culture - Preliminary Blood - Venous NO GROWTH AFTER 1 DAY Anaerobic Blood Culture - Final Med Orders - Current: Current Medications Albuterol/Ipratropium (Duoneb 3.0-0.5 Mg/3 Ml) 3 ml NEB Q4HRRT PRN PRN Reason: Shortness Of Breath/wheezing Hydrocortisone (Hydrocortisone 1% Crm) 0 gm TOP TID [facility] Last Admin: 04/26/20 05:54 Dose: 1 applic Documented by: Lactated Ringer's (Ringers, Lactated) 1,000 mls @ 125 mls/hr IV Q8H [facility] Last Admin: 04/26/20 06:48 Dose: 125 mls/hr Documented by: Pantoprazole Sodium 40 mg/ (Sodium Chloride) 10 mls @ 200 mls/hr IV Q12HR [facility] Last Admin: 04/26/20 08:14 Dose: 200 mls/hr Documented by: Piperacillin Sod/Tazobactam (Sod 3.375 gm/ Sodium Chloride) 50 mls @ 100 mls/hr IV Q8H [facility] Last Admin: 04/26/20 05:54 Dose: 100 mls/hr Documented by: Methylprednisolone Sodium Succinate (Solu-Medrol) 40 mg IVPUSH DAILY [facility] Ondansetron HCl (Zofran) 4 mg IVPUSH Q4H PRN PRN Reason: Nausea/Vomiting Last Admin: 04/25/20 10:33 Dose: 4 mg Documented by: Oxycodone HCl (Oxycodone) 5 mg PO Q4H PRN PRN Reason: pain Discontinued Medications Heparin Sodium (Porcine) (Heparin Sodium) 5,000 units SUBCUT Q8H [facility] Last Admin: 04/24/20 11:31 Dose: 5,000 units Documented by: Hydrocortisone/Pramoxine (Proctofoam-Hc 1%-1% Foam) 0 gm RC QID [facility] Hydromorphone HCl (Dilaudid) 1 mg IVPUSH ONETIME ONE Stop: 04/24/20 06:05 Last Admin: 04/24/20 06:46 Dose: 1 mg Documented by: Hydromorphone HCl (Dilaudid) 1 mg IVPUSH ONETIME ONE Stop: 04/24/20 08:38 Last Admin: 04/24/20 08:47 Dose: 1 mg Documented by: Sodium Chloride (Normal Saline) 1,000 mls @ 999 mls/hr IV .BOLUS ONE Stop: 04/24/20 07:04 Last Admin: 04/24/20 06:45 Dose: 999 mls/hr Documented by: Sodium Chloride (Normal Saline) 1,000 mls @ 125 mls/hr IV .Bolus ONE Stop: 04/24/20 16:41 Last Admin: 04/24/20 08:53 Dose: 125 mls/hr Documented by: Potassium Chloride/Sodium Chloride (Normal Saline With 40 Meq Kcl) 1,000 mls @ 150 mls/hr IV ASDIRECTED [facility] Stop: 04/25/20 18:39 Last Admin: 04/25/20 13:21 Dose: 150 mls/hr Documented by: Magnesium Sulfate (Magnesium Sulfate In Water 2 Gm/50 Ml) 2 gm in 50 mls @ 50 mls/hr IV ONETIME ONE Stop: 04/25/20 13:04 Last Admin: 04/25/20 13:11 Dose: 50 mls/hr Documented by: Iopamidol (Isovue Multipack-370 (76%)) 100 ml IVPUSH ONETIME STA Stop: 04/24/20 07:26 Last Admin: 04/24/20 07:25 Dose: 100 ml Documented by: Methylprednisolone Sodium Succinate (Solu-Medrol) 40 mg IVPUSH ONETIME ONE Stop: 04/24/20 08:46 Last Admin: 04/24/20 08:53 Dose: 40 mg Documented by: Methylprednisolone Sodium Succinate (Solu-Medrol) 40 mg IVPUSH ONETIME ONE Stop: 04/25/20 12:06 Last Admin: 04/25/20 13:12 Dose: 40 mg Documented by: Morphine Sulfate (Morphine) 2 mg IVPUSH Q2H PRN PRN Reason: Pain (severe 7-10) Stop: 04/25/20 10:31 Last Admin: 04/25/20 11:06 Dose: 2 mg Documented by: Morphine Sulfate (Morphine) 2 mg IVPUSH Q4H PRN PRN Reason: Pain Last Admin: 04/26/20 05:53 Dose: 2 mg Documented by: Ondansetron HCl (Zofran) 4 mg IVPUSH ONETIME ONE Stop: 04/24/20 07:34 Last Admin: 04/24/20 07:39 Dose: 4 mg Documented by: - Exam General: Alert, Oriented, Cooperative, No Acute Distress Neck: Supple Lungs: Clear to Auscultation, Normal Respiratory Effort Cardiovascular: Regular Rate, Regular Rhythm GI/Abdominal Exam: Normal Bowel Sounds, Soft, No Distention, Tender (Lower abdomen and around ostomy) Extremities: Normal Inspection, Normal Range of Motion, Non-Tender, No Pedal Edema Neurological: No New Focal Deficit Psy/Mental Status: Alert, Normal Affect, Normal Mood Sepsis Event Note - Evaluation Sepsis Screening Result: No Definite Risk - Focused Exam Vital Signs: Vital Signs Temp Pulse Resp BP Pulse Ox 04/26/20 07:42 97.9 F 67 16 105/41 L 100 04/26/20 04:00 97.5 F 62 16 103/45 L 99 04/25/20 23:42 98.3 F 78 16 107/47 L 98 - Problem List & Annotations (1) Abdominal pain SNOMED Code(s): 19937222 Code(s): R10.9 - UNSPECIFIED ABDOMINAL PAIN Status: Acute Priority: Medium Current Visit: Yes Qualifiers: Abdominal location: generalized Qualified Code(s): R10.84 - Generalized abdominal pain (2) Enteritis SNOMED Code(s): 36462676 Code(s): K52.9 - NONINFECTIVE GASTROENTERITIS AND COLITIS, UNSPECIFIED Status: Acute Priority: High Current Visit: Yes (3) History of ulcerative colitis SNOMED Code(s): 324717819 Code(s): Z87.19 - PERSONAL HISTORY OF OTHER DISEASES OF THE DIGESTIVE SYSTEM Status: Chronic Current Visit: No (4) Hx of Clostridium difficile infection SNOMED Code(s): 692650847, 418765452 Code(s): Z86.19 - PERSONAL HISTORY OF OTHER INFECTIOUS AND PARASITIC DISEASES Status: Chronic Current Visit: No (5) Ileostomy present SNOMED Code(s): 602201657 Code(s): Z93.2 - ILEOSTOMY STATUS Status: Chronic Current Visit: Yes - Problem List Review Problem List Initiated/Reviewed/Updated: Yes - My Orders Last 24 Hours: My Active Orders 04/26/20 10:10 oxyCODONE 5 mg PO Q4H PRN 04/26/20 10:15 methylPREDNISolone Sod Succ [Solu-MEDROL] 40 mg IVPUSH DAILY 04/26/20 Lunch Full Liquid Diet [DIET] - Plan Plan:: 19 y/o F admitted for abdominal pain, rectal discharge and bleeding 1. Enteritis/ulcerative colitis flare -Rectal discharge and bleeding has improved with hydrocortisone suppository, continue these 3 times daily -We will continue Solu-Medrol 40 mg IV daily -Requesting increase diet will increase to full liquids and monitor today -Continue pain control with p.o. medication oxycodone 5 as needed morphine IV -Continue to monitor stools closely -Stool cultures negative for C. difficile -Continue IV fluids -Continue Zosyn -Ostomy cares per patient VTE prophylaxis: SCDs only and ambulation GI prophylaxis: Protonix CODE STATUS: Full code Dispo: 1 to 2 days pending improvement
[2020-04-26] MEDS: oxyCODONE 5 MG Tab PO PRN ×2 (10:27→14:20)
[2020-04-26] MEDS: methylPREDNISolone Sodium Succinate 40 MG/1 ML SDV IVPUSH SCH (10:40)
[2020-04-26] MEDS ORDERED: Magnesium Sulfate/Water 4 GM/100 ML BAG IV STA (11:08)
[2020-04-27] MEDS: Lactated Ringers 1,000 ML IV SCH ×2 (00:29→01:34)
[2020-04-27] MEDS: Morphine 2 MG/ML SYRINGE IVPUSH PRN ×2 (03:48→08:28)
[2020-04-27] MEDS: Piperacillin/Tazobactam 3.375 GM in Sodium Chloride 0.9% 50 ML IV SCH ×3 (05:41→22:03)
[2020-04-27] MEDS: Hydrocortisone 1% Crm 30 GM Tube TOP SCH ×3 (05:44→22:06)
[2020-04-27 06:22] LABS: BLOOD UREA NITROGEN,BUN 7 mg/dL (7.0-18.0); CARBON DIOXIDE,CO2 25.2 mmol/L (21.0-32.0); CHLORIDE,CL 105 mmol/L (98-107); GLUCOSE RANDOM 74 mg/dL (74-106); POTASSIUM,K 3.7 mmol/L (3.5-5.1); SODIUM,NA 140 mmol/L (136-145)
[2020-04-27] MEDS: Pantoprazole 40 MG in Sodium Chloride 0.9% 10 ML IV SCH ×2 (08:45→21:57)
[2020-04-27] MEDS: methylPREDNISolone Sodium Succinate 40 MG/1 ML SDV IVPUSH SCH (08:48)
[2020-04-27] MEDS ORDERED: Morphine 2 MG/ML SYRINGE IVPUSH PRN (09:05)
--- NOTE | 2020-04-27 10:43 | PCM.PN ---
- General Info Date of Service: 04/27/20 Admission Dx/Problem (Free Text): Admission Diagnosis/Problem Admission Diagnosis/Problem Ulcerative colitis Subjective Update: Having mild lower abdominal pain. Requesting increase in diet. We did discuss again not using IV pain meds. Yesterday she did not tolerate oxycodone well. She reports she has used hydrocodone in the past and this seemed to help better. We will try this today and will spread out morphine. Advance diet to soft and monitor. Stool is more brown in color still softer and more liquidy but is improving as diet improves. Continues to have fullness in her rectum reporting she is starting her menses and noticed blood in her urine. Functional Status: Reports: Pain Controlled, Tolerating Diet, Ambulating, Urinating - Review of Systems General: Reports: Fatigue, Malaise HEENT: Reports: No Symptoms. Denies: Headaches, Sore Throat, Visual Changes Pulmonary: Reports: No Symptoms. Denies: Shortness of Breath Cardiovascular: Reports: No Symptoms. Denies: Chest Pain Gastrointestinal: Reports: Abdominal Pain (Lower abdominal), Diarrhea, Other (Rectal discharge is improved no blood for 2 days). Denies: Nausea, Vomiting Genitourinary: Reports: No Symptoms, Dysuria, Frequency Musculoskeletal: Reports: No Symptoms Skin: Reports: No Symptoms Neurological: Reports: No Symptoms Psychiatric: Reports: No Symptoms - Patient Data Vitals - Most Recent: Last Vital Signs Temp 97.6 F 04/27/20 07:01 Pulse 60 04/27/20 07:01 Resp 12 04/27/20 07:01 BP 109/54 L 04/27/20 07:01 Pulse Ox 98 04/27/20 07:01 Weight - Most Recent: 56.472 kg I&O - Last 24 Hours: Intake & Output 04/26/20 04/27/20 04/27/20 22:59 06:59 14:59 Intake Total 757 2661 5 Output Total 2700 2200 Balance -1943 461 5 Lab Results Last 24 Hours: Laboratory Results - last 24 hr 04/27/20 04/27/20 Range/Units 05:45 05:45 WBC 9.46 (4.0-11.0) K/uL RBC 4.23 L (4.30-5.90) M/uL Hgb 10.2 L (12.0-16.0) g/dL Hct 32.2 L (36.0-46.0) % MCV 76.1 L (80.0-98.0) fL MCH 24.1 L (27.0-32.0) pg MCHC 31.7 (31.0-37.0) g/dL RDW Std Deviation 44.4 (28.0-62.0) fl RDW Coeff of Buck 16 H (11.0-15.0) % Plt Count 389 (150-400) K/uL MPV 10.20 (7.40-12.00) fL Neut % (Auto) 50.3 (48.0-80.0) % Lymph % (Auto) 38.1 (16.0-40.0) % [place] % (Auto) 10.8 (0.0-15.0) % Eos % (Auto) 0.6 (0.0-7.0) % Baso % (Auto) 0.2 (0.0-1.5) % Neut # (Auto) 4.8 (1.4-5.7) K/uL Lymph # (Auto) 3.6 H (0.6-2.4) K/uL [place] # (Auto) 1.0 H (0.0-0.8) K/uL Eos # (Auto) 0.1 (0.0-0.7) K/uL Baso # (Auto) 0.0 (0.0-0.1) K/uL Nucleated RBC % 0.0 /100WBC Nucleated RBCs # 0 K/uL Sodium 140 (136-145) mmol/L Potassium 3.7 (3.5-5.1) mmol/L Chloride 105 (98-107) mmol/L Carbon Dioxide 25.2 (21.0-32.0) mmol/L BUN 7 (7.0-18.0) mg/dL Creatinine 0.9 (0.6-1.0) mg/dL Est Cr Clr Drug Dosing 85.38 mL/min Estimated GFR (MDRD) > 60.0 ml/min Glucose 74 (74-106) mg/dL Calcium 8.6 (8.5-10.1) mg/dL Magnesium 1.9 (1.8-2.4) mg/dL Rohit Results Last 24 Hours: Microbiology 04/24/20 14:56 Aerobic Blood Culture - Preliminary Blood - Venous - Lab Draw NO GROWTH AFTER 2 DAYS Anaerobic Blood Culture - Preliminary NO GROWTH AFTER 2 DAYS 04/24/20 06:40 Aerobic Blood Culture - Preliminary Blood - Venous NO GROWTH AFTER 2 DAYS Anaerobic Blood Culture - Final 04/24/20 05:44 Urine Culture - Final Urine, Clean Catch MIXED CHARLEY 10,000-100,000 CFU/ML Med Orders - Current: Current Medications Hydrocodone Bitart/Acetaminophen ([place] 325-5 Mg) 1 tab PO Q4H PRN PRN Reason: Pain Albuterol/Ipratropium (Duoneb 3.0-0.5 Mg/3 Ml) 3 ml NEB Q4HRRT PRN PRN Reason: Shortness Of Breath/wheezing Hydrocortisone (Hydrocortisone 1% Crm) 0 gm TOP TID [facility] Last Admin: 04/27/20 05:44 Dose: 1 applic Documented by: Pantoprazole Sodium 40 mg/ (Sodium Chloride) 10 mls @ 200 mls/hr IV Q12HR [facility] Last Admin: 04/27/20 08:45 Dose: 200 mls/hr Documented by: Piperacillin Sod/Tazobactam (Sod 3.375 gm/ Sodium Chloride) 50 mls @ 100 mls/hr IV Q8H [facility] Last Admin: 04/27/20 05:41 Dose: 100 mls/hr Documented by: Methylprednisolone Sodium Succinate (Solu-Medrol) 40 mg IVPUSH DAILY [facility] Last Admin: 04/27/20 08:48 Dose: 40 mg Documented by: Morphine Sulfate (Morphine) 2 mg IVPUSH Q6H PRN PRN Reason: Pain Ondansetron HCl (Zofran) 4 mg IVPUSH Q4H PRN PRN Reason: Nausea/Vomiting Last Admin: 04/25/20 10:33 Dose: 4 mg Documented by: Discontinued Medications Heparin Sodium (Porcine) (Heparin Sodium) 5,000 units SUBCUT Q8H [facility] Last Admin: 04/24/20 11:31 Dose: 5,000 units Documented by: Hydrocortisone/Pramoxine (Proctofoam-Hc 1%-1% Foam) 0 gm RC QID [facility] Hydromorphone HCl (Dilaudid) 1 mg IVPUSH ONETIME ONE Stop: 04/24/20 06:05 Last Admin: 04/24/20 06:46 Dose: 1 mg Documented by: Hydromorphone HCl (Dilaudid) 1 mg IVPUSH ONETIME ONE Stop: 04/24/20 08:38 Last Admin: 04/24/20 08:47 Dose: 1 mg Documented by: Sodium Chloride (Normal Saline) 1,000 mls @ 999 mls/hr IV .BOLUS ONE Stop: 04/24/20 07:04 Last Admin: 04/24/20 06:45 Dose: 999 mls/hr Documented by: Sodium Chloride (Normal Saline) 1,000 mls @ 125 mls/hr IV .Bolus ONE Stop: 04/24/20 16:41 Last Admin: 04/24/20 08:53 Dose: 125 mls/hr Documented by: Lactated Ringer's (Ringers, Lactated) 1,000 mls @ 125 mls/hr IV Q8H [facility] Last Admin: 04/27/20 01:34 Dose: Not Given Documented by: Potassium Chloride/Sodium Chloride (Normal Saline With 40 Meq Kcl) 1,000 mls @ 150 mls/hr IV ASDIRECTED [facility] Stop: 04/25/20 18:39 Last Admin: 04/25/20 13:21 Dose: 150 mls/hr Documented by: Magnesium Sulfate (Magnesium Sulfate In Water 2 Gm/50 Ml) 2 gm in 50 mls @ 50 mls/hr IV ONETIME ONE Stop: 04/25/20 13:04 Last Admin: 04/25/20 13:11 Dose: 50 mls/hr Documented by: Magnesium Sulfate (Magnesium Sulfate In Water 4 Gm/100 Ml) 4 gm in 100 mls @ 50 mls/hr IV NOW STA Stop: 04/26/20 13:07 Last Admin: 04/26/20 11:35 Dose: 50 mls/hr Documented by: Iopamidol (Isovue Multipack-370 (76%)) 100 ml IVPUSH ONETIME STA Stop: 04/24/20 07:26 Last Admin: 04/24/20 07:25 Dose: 100 ml Documented by: Methylprednisolone Sodium Succinate (Solu-Medrol) 40 mg IVPUSH ONETIME ONE Stop: 04/24/20 08:46 Last Admin: 04/24/20 08:53 Dose: 40 mg Documented by: Methylprednisolone Sodium Succinate (Solu-Medrol) 40 mg IVPUSH ONETIME ONE Stop: 04/25/20 12:06 Last Admin: 04/25/20 13:12 Dose: 40 mg Documented by: Morphine Sulfate (Morphine) 2 mg IVPUSH Q2H PRN PRN Reason: Pain (severe 7-10) Stop: 04/25/20 10:31 Last Admin: 04/25/20 11:06 Dose: 2 mg Documented by: Morphine Sulfate (Morphine) 2 mg IVPUSH Q4H PRN PRN Reason: Pain Last Admin: 04/26/20 05:53 Dose: 2 mg Documented by: Morphine Sulfate (Morphine) 2 mg IVPUSH Q4H PRN PRN Reason: Pain Last Admin: 04/27/20 08:28 Dose: 2 mg Documented by: Ondansetron HCl (Zofran) 4 mg IVPUSH ONETIME ONE Stop: 04/24/20 07:34 Last Admin: 04/24/20 07:39 Dose: 4 mg Documented by: Oxycodone HCl (Oxycodone) 5 mg PO Q4H PRN PRN Reason: pain Last Admin: 04/26/20 14:20 Dose: 5 mg Documented by: - Exam General: Alert, Oriented, Cooperative, No Acute Distress Lungs: Clear to Auscultation, Normal Respiratory Effort Cardiovascular: Regular Rate, Regular Rhythm GI/Abdominal Exam: Normal Bowel Sounds, Soft, Tender (Lower abdomen), Other (Ostomy in place to right abdomen. Stool was brown and soft/liquidy) Extremities: Normal Inspection, Normal Range of Motion, Non-Tender, No Pedal Edema Wound/Incisions: Healing Well Neurological: No New Focal Deficit Psy/Mental Status: Alert, Normal Affect, Normal Mood Sepsis Event Note - Evaluation Sepsis Screening Result: No Definite Risk - Focused Exam Vital Signs: Vital Signs Temp Pulse Resp BP Pulse Ox 04/27/20 07:01 97.6 F 60 12 109/54 L 98 04/27/20 03:53 97.8 F 64 16 113/55 L 99 04/27/20 00:20 97 F 57 L 16 106/61 99 - Problem List & Annotations (1) Abdominal pain SNOMED Code(s): 24893249 Code(s): R10.9 - UNSPECIFIED ABDOMINAL PAIN Status: Acute Priority: [facility] Current Visit: Yes Qualifiers: Abdominal location: generalized Qualified Code(s): R10.84 - Generalized abdominal pain (2) Enteritis SNOMED Code(s): 55720262 Code(s): K52.9 - NONINFECTIVE GASTROENTERITIS AND COLITIS, UNSPECIFIED Status: Acute Priority: High Current Visit: Yes (3) History of ulcerative colitis SNOMED Code(s): 186764032 Code(s): Z87.19 - PERSONAL HISTORY OF OTHER DISEASES OF THE DIGESTIVE SYSTEM Status: Chronic Current Visit: No (4) Hx of Clostridium difficile infection SNOMED Code(s): 726908279, 427534321 Code(s): Z86.19 - PERSONAL HISTORY OF OTHER INFECTIOUS AND PARASITIC DISEASES Status: Chronic Current Visit: No (5) Ileostomy present SNOMED Code(s): 040444119 Code(s): Z93.2 - ILEOSTOMY STATUS Status: Chronic Current Visit: Yes - Problem List Review Problem List Initiated/Reviewed/Updated: Yes - My Orders Last 24 Hours: My Active Orders 04/26/20 10:15 methylPREDNISolone Sod Succ [Solu-MEDROL] 40 mg IVPUSH DAILY 04/26/20 Lunch Full Liquid Diet [DIET] 04/27/20 09:05 Acetaminophen/HYDROcodone [[place] 325-5 MG] 1 tab PO Q4H PRN Morphine 2 mg IVPUSH Q6H PRN 04/27/20 Lunch Soft Diet [DIET] 04/28/20 05:11 BASIC METABOLIC PANEL,BMP [CHEM] AM CBC WITH AUTO DIFF [HEME] AM MAGNESIUM [CHEM] AM 04/29/20 05:11 BASIC METABOLIC PANEL,BMP [CHEM] AM CBC WITH AUTO DIFF [HEME] AM MAGNESIUM [CHEM] AM 04/30/20 05:11 BASIC METABOLIC PANEL,BMP [CHEM] AM CBC WITH AUTO DIFF [HEME] AM MAGNESIUM [CHEM] AM 05/01/20 05:11 BASIC METABOLIC PANEL,BMP [CHEM] AM CBC WITH AUTO DIFF [HEME] AM MAGNESIUM [CHEM] AM - Plan Plan:: 19 y/o F admitted for abdominal pain, rectal discharge and bleeding 1. Enteritis/ulcerative colitis flare -Rectal discharge and bleeding has improved with hydrocortisone suppository, continue these 3 times daily -Continue Solu-Medrol 40 mg IV daily -Soft diet -Trial hydrocodone today for pain control as she did not tolerate oxycodone yesterday. -Continue to monitor stools closely -Stool cultures negative for C. difficile other stool cultures continue to pend - Discontinue IV fluids as patient is taking good amount of oral fluids. -Continue Zosyn -Ostomy cares per patient VTE prophylaxis: SCDs only and ambulation GI prophylaxis: Protonix CODE STATUS: Full code Dispo: 1 to 2 days pending improvement
[2020-04-27] MEDS: Acetaminophen/HYDROcodone 325-5 MG Tab PO PRN ×2 (17:40→22:10)
[2020-04-28] MEDS: Acetaminophen/HYDROcodone 325-5 MG Tab PO PRN (05:23)
[2020-04-28] MEDS: Hydrocortisone 1% Crm 30 GM Tube TOP SCH ×3 (05:24→21:52)
[2020-04-28] MEDS: Piperacillin/Tazobactam 3.375 GM in Sodium Chloride 0.9% 50 ML IV SCH ×4 (05:27→21:51)
[2020-04-28 06:24] LABS: BLOOD UREA NITROGEN,BUN 8 mg/dL (7.0-18.0); CARBON DIOXIDE,CO2 24.3 mmol/L (21.0-32.0); CHLORIDE,CL 104 mmol/L (98-107); GLUCOSE RANDOM 84 mg/dL (74-106); POTASSIUM,K 3.4 mmol/L (3.5-5.1); SODIUM,NA 139 mmol/L (136-145)
[2020-04-28] MEDS ORDERED: Potassium Chloride 20 MEQ Tab.ER PO ONE (07:54)
[2020-04-28] MEDS ORDERED: Magnesium Sulfate/Water 2 GM/50 ML BAG IV ONE (08:01)
--- NOTE | 2020-04-28 08:40 | PCM.PN ---
- General Info Date of Service: 04/28/20 Admission Dx/Problem (Free Text): Admission Diagnosis/Problem Admission Diagnosis/Problem Ulcerative colitis Subjective Update: Reports she is continuing to have lower abdominal pain with mild improvement. Reports Radha has not worked but is also asking for increased diet as she is hungry. We discussed that we need to eat diet the same as she is having this much pain. Will increase [place] to 10 but will discontinue morphine. She understands this with hopes of being discharged in the morning. She denies any chest pain shortness of breath. Stools to ostomy have improved they are less dark and having more form to them. Functional Status: Reports: Tolerating Diet, Ambulating, Urinating. Denies: Pain Controlled - Review of Systems General: Reports: No Symptoms. Denies: Weakness, Fatigue, Malaise HEENT: Reports: No Symptoms. Denies: Sore Throat, Visual Changes Pulmonary: Reports: No Symptoms. Denies: Shortness of Breath Cardiovascular: Reports: No Symptoms. Denies: Chest Pain Gastrointestinal: Reports: No Symptoms. Denies: Abdominal Pain, Nausea, Vomiting Genitourinary: Reports: No Symptoms. Denies: Dysuria, Frequency Musculoskeletal: Reports: No Symptoms Skin: Reports: No Symptoms Neurological: Reports: No Symptoms Psychiatric: Reports: No Symptoms - Patient Data Vitals - Most Recent: Last Vital Signs Temp 97.5 F 04/28/20 07:15 Pulse 61 04/28/20 07:15 Resp 12 04/28/20 07:15 BP 118/80 04/28/20 07:15 Pulse Ox 98 04/28/20 07:15 Weight - Most Recent: 56.472 kg I&O - Last 24 Hours: Intake & Output 04/27/20 04/28/20 04/28/20 22:59 06:59 14:59 Intake Total 1000 910 Output Total 1800 950 Balance -800 -40 Lab Results Last 24 Hours: Laboratory Results - last 24 hr 04/28/20 04/28/20 Range/Units 05:12 05:12 WBC 9.69 (4.0-11.0) K/uL RBC 4.07 L (4.30-5.90) M/uL Hgb 10.0 L (12.0-16.0) g/dL Hct 30.7 L (36.0-46.0) % MCV 75.4 L (80.0-98.0) fL MCH 24.6 L (27.0-32.0) pg MCHC 32.6 (31.0-37.0) g/dL RDW Std Deviation 43.9 (28.0-62.0) fl RDW Coeff of Buck 16 H (11.0-15.0) % Plt Count 421 H (150-400) K/uL MPV 10.50 (7.40-12.00) fL Neut % (Auto) 46.1 L (48.0-80.0) % Lymph % (Auto) 43.6 H (16.0-40.0) % [place] % (Auto) 9.3 (0.0-15.0) % Eos % (Auto) 0.7 (0.0-7.0) % Baso % (Auto) 0.3 (0.0-1.5) % Neut # (Auto) 4.5 (1.4-5.7) K/uL Lymph # (Auto) 4.2 H (0.6-2.4) K/uL [place] # (Auto) 0.9 H (0.0-0.8) K/uL Eos # (Auto) 0.1 (0.0-0.7) K/uL Baso # (Auto) 0.0 (0.0-0.1) K/uL Nucleated RBC % 0.0 /100WBC Nucleated RBCs # 0 K/uL Sodium 139 (136-145) mmol/L Potassium 3.4 L (3.5-5.1) mmol/L Chloride 104 (98-107) mmol/L Carbon Dioxide 24.3 (21.0-32.0) mmol/L BUN 8 (7.0-18.0) mg/dL Creatinine 0.9 (0.6-1.0) mg/dL Est Cr Clr Drug Dosing 85.38 mL/min Estimated GFR (MDRD) > 60.0 ml/min Glucose 84 (74-106) mg/dL Calcium 8.3 L (8.5-10.1) mg/dL Magnesium 1.7 L (1.8-2.4) mg/dL Rohit Results Last 24 Hours: Microbiology 04/24/20 14:56 Aerobic Blood Culture - Preliminary Blood - Venous - Lab Draw NO GROWTH AFTER 3 DAYS Anaerobic Blood Culture - Preliminary NO GROWTH AFTER 3 DAYS 04/24/20 06:40 Aerobic Blood Culture - Preliminary Blood - Venous NO GROWTH AFTER 3 DAYS Anaerobic Blood Culture - Final 04/24/20 08:20 Shiga Toxin I & II - Final Stool / Feces Med Orders - Current: Current Medications Hydrocodone Bitart/Acetaminophen ([place] 325-10 Mg) 1 tab PO Q4H PRN PRN Reason: Pain Albuterol/Ipratropium (Duoneb 3.0-0.5 Mg/3 Ml) 3 ml NEB Q4HRRT PRN PRN Reason: Shortness Of Breath/wheezing Hydrocortisone (Hydrocortisone 1% Crm) 0 gm TOP TID [facility] Last Admin: 04/28/20 05:24 Dose: 1 applic Documented by: Pantoprazole Sodium 40 mg/ (Sodium Chloride) 10 mls @ 200 mls/hr IV Q12HR [facility] Last Admin: 04/27/20 21:57 Dose: 200 mls/hr Documented by: Piperacillin Sod/Tazobactam (Sod 3.375 gm/ Sodium Chloride) 50 mls @ 100 mls/hr IV Q8H [facility] Last Admin: 04/28/20 05:30 Dose: 100 mls/hr Documented by: Magnesium Sulfate (Magnesium Sulfate In Water 2 Gm/50 Ml) 2 gm in 50 mls @ 50 mls/hr IV ONETIME ONE Stop: 04/28/20 09:00 Methylprednisolone Sodium Succinate (Solu-Medrol) 40 mg IVPUSH DAILY [facility] Last Admin: 04/27/20 08:48 Dose: 40 mg Documented by: Ondansetron HCl (Zofran) 4 mg IVPUSH Q4H PRN PRN Reason: Nausea/Vomiting Last Admin: 04/25/20 10:33 Dose: 4 mg Documented by: Discontinued Medications Hydrocodone Bitart/Acetaminophen ([place] 325-5 Mg) 1 tab PO Q4H PRN PRN Reason: Pain Last Admin: 04/28/20 05:23 Dose: 1 tab Documented by: Heparin Sodium (Porcine) (Heparin Sodium) 5,000 units SUBCUT Q8H [facility] Last Admin: 04/24/20 11:31 Dose: 5,000 units Documented by: Hydrocortisone/Pramoxine (Proctofoam-Hc 1%-1% Foam) 0 gm RC QID [facility] Hydromorphone HCl (Dilaudid) 1 mg IVPUSH ONETIME ONE Stop: 04/24/20 06:05 Last Admin: 04/24/20 06:46 Dose: 1 mg Documented by: Hydromorphone HCl (Dilaudid) 1 mg IVPUSH ONETIME ONE Stop: 04/24/20 08:38 Last Admin: 04/24/20 08:47 Dose: 1 mg Documented by: Sodium Chloride (Normal Saline) 1,000 mls @ 999 mls/hr IV .BOLUS ONE Stop: 04/24/20 07:04 Last Admin: 04/24/20 06:45 Dose: 999 mls/hr Documented by: Sodium Chloride (Normal Saline) 1,000 mls @ 125 mls/hr IV .Bolus ONE Stop: 04/24/20 16:41 Last Admin: 04/24/20 08:53 Dose: 125 mls/hr Documented by: Lactated Ringer's (Ringers, Lactated) 1,000 mls @ 125 mls/hr IV Q8H [facility] Last Admin: 04/27/20 01:34 Dose: Not Given Documented by: Potassium Chloride/Sodium Chloride (Normal Saline With 40 Meq Kcl) 1,000 mls @ 150 mls/hr IV ASDIRECTED [facility] Stop: 04/25/20 18:39 Last Admin: 04/25/20 13:21 Dose: 150 mls/hr Documented by: Magnesium Sulfate (Magnesium Sulfate In Water 2 Gm/50 Ml) 2 gm in 50 mls @ 50 mls/hr IV ONETIME ONE Stop: 04/25/20 13:04 Last Admin: 04/25/20 13:11 Dose: 50 mls/hr Documented by: Magnesium Sulfate (Magnesium Sulfate In Water 4 Gm/100 Ml) 4 gm in 100 mls @ 50 mls/hr IV NOW STA Stop: 04/26/20 13:07 Last Admin: 04/26/20 11:35 Dose: 50 mls/hr Documented by: Iopamidol (Isovue Multipack-370 (76%)) 100 ml IVPUSH ONETIME STA Stop: 04/24/20 07:26 Last Admin: 04/24/20 07:25 Dose: 100 ml Documented by: Methylprednisolone Sodium Succinate (Solu-Medrol) 40 mg IVPUSH ONETIME ONE Stop: 04/24/20 08:46 Last Admin: 04/24/20 08:53 Dose: 40 mg Documented by: Methylprednisolone Sodium Succinate (Solu-Medrol) 40 mg IVPUSH ONETIME ONE Stop: 04/25/20 12:06 Last Admin: 04/25/20 13:12 Dose: 40 mg Documented by: Morphine Sulfate (Morphine) 2 mg IVPUSH Q2H PRN PRN Reason: Pain (severe 7-10) Stop: 04/25/20 10:31 Last Admin: 04/25/20 11:06 Dose: 2 mg Documented by: Morphine Sulfate (Morphine) 2 mg IVPUSH Q4H PRN PRN Reason: Pain Last Admin: 04/26/20 05:53 Dose: 2 mg Documented by: Morphine Sulfate (Morphine) 2 mg IVPUSH Q4H PRN PRN Reason: Pain Last Admin: 04/27/20 08:28 Dose: 2 mg Documented by: Morphine Sulfate (Morphine) 2 mg IVPUSH Q6H PRN PRN Reason: Pain Last Admin: 04/27/20 14:32 Dose: 2 mg Documented by: Ondansetron HCl (Zofran) 4 mg IVPUSH ONETIME ONE Stop: 04/24/20 07:34 Last Admin: 04/24/20 07:39 Dose: 4 mg Documented by: Oxycodone HCl (Oxycodone) 5 mg PO Q4H PRN PRN Reason: pain Last Admin: 04/26/20 14:20 Dose: 5 mg Documented by: Potassium Chloride (Klor-Con M20) 40 meq PO ONETIME ONE Stop: 04/28/20 07:55 - Exam General: Alert, Oriented, Cooperative, No Acute Distress (Patient continuously rates pain at 6 or 7/10 constantly.) Lungs: Clear to Auscultation, Normal Respiratory Effort Cardiovascular: Regular Rate, Regular Rhythm GI/Abdominal Exam: Normal Bowel Sounds, Soft, Tender (Diffusely) Extremities: Normal Inspection, Normal Range of Motion, Non-Tender, No Pedal Edema Neurological: No New Focal Deficit Psy/Mental Status: Alert, Normal Affect, Normal Mood Sepsis Event Note - Evaluation Sepsis Screening Result: No Definite Risk - Focused Exam Vital Signs: Vital Signs Temp Pulse Resp BP Pulse Ox 04/28/20 07:15 97.5 F 61 12 118/80 98 04/28/20 04:20 98 F 60 16 124/60 98 04/28/20 00:30 98.2 F 56 L 16 104/51 L 98 - Problem List & Annotations (1) Abdominal pain SNOMED Code(s): 64217911 Code(s): R10.9 - UNSPECIFIED ABDOMINAL PAIN Status: Acute Priority: Medium Current Visit: Yes Qualifiers: Abdominal location: generalized Qualified Code(s): R10.84 - Generalized abdominal pain (2) Enteritis SNOMED Code(s): 93930419 Code(s): K52.9 - NONINFECTIVE GASTROENTERITIS AND COLITIS, UNSPECIFIED Status: Acute Priority: High Current Visit: Yes (3) History of ulcerative colitis SNOMED Code(s): 430533740 Code(s): Z87.19 - PERSONAL HISTORY OF OTHER DISEASES OF THE DIGESTIVE SYSTEM Status: Chronic Current Visit: No (4) Hx of Clostridium difficile infection SNOMED Code(s): 255336106, 511266786 Code(s): Z86.19 - PERSONAL HISTORY OF OTHER INFECTIOUS AND PARASITIC DISEASES Status: Chronic Current Visit: No (5) Ileostomy present SNOMED Code(s): 479585254 Code(s): Z93.2 - ILEOSTOMY STATUS Status: Chronic Current Visit: Yes - Problem List Review Problem List Initiated/Reviewed/Updated: Yes - My Orders Last 24 Hours: My Active Orders 04/27/20 Lunch Soft Diet [DIET] 04/28/20 08:01 Magnesium Sulfate/Water [Magnesium Sulfate in Water 2 GM/50 ML] 2 gm in 50 ml IV ONETIME 04/28/20 08:40 Acetaminophen/HYDROcodone [[place] 325-10 MG] 1 tab PO Q4H PRN 04/29/20 05:11 BASIC METABOLIC PANEL,BMP [CHEM] AM CBC WITH AUTO DIFF [HEME] AM MAGNESIUM [CHEM] AM 04/30/20 05:11 BASIC METABOLIC PANEL,BMP [CHEM] AM CBC WITH AUTO DIFF [HEME] AM MAGNESIUM [CHEM] AM 05/01/20 05:11 BASIC METABOLIC PANEL,BMP [CHEM] AM CBC WITH AUTO DIFF [HEME] AM MAGNESIUM [CHEM] AM - Plan Plan:: 19 y/o F admitted for abdominal pain, rectal discharge and bleeding 1. Enteritis/ulcerative colitis flare -Rectal discharge and bleeding has improved with hydrocortisone suppository, continue these 3 times daily -Continue Solu-Medrol 40 mg IV daily -Soft diet -Hydrocodone 10/325 every 4 hours as needed -Continue to monitor stools closely -Continue Zosyn -Ostomy cares per patient VTE prophylaxis: SCDs only and ambulation GI prophylaxis: Protonix CODE STATUS: Full code Dispo: Likely discharge in a.m.
[2020-04-28] MEDS: methylPREDNISolone Sodium Succinate 40 MG/1 ML SDV IVPUSH SCH (08:48)
[2020-04-28] MEDS: Pantoprazole 40 MG in Sodium Chloride 0.9% 10 ML IV SCH ×2 (08:51→20:42)
[2020-04-28] MEDS: Acetaminophen/HYDROcodone 325-10 MG Tab PO PRN ×3 (10:08→18:58)
[2020-04-28] MEDS ORDERED: Morphine 2 MG/ML SYRINGE IVPUSH ONE (20:33)
[2020-04-29] MEDS: Acetaminophen/HYDROcodone 325-10 MG Tab PO PRN ×4 (04:21→19:48)
[2020-04-29] MEDS: Piperacillin/Tazobactam 3.375 GM in Sodium Chloride 0.9% 50 ML IV SCH ×3 (05:43→22:21)
[2020-04-29] MEDS: Ondansetron 4 MG/2 ML SDV IVPUSH PRN ×2 (06:05→11:25)
[2020-04-29 06:23] LABS: BLOOD UREA NITROGEN,BUN 11 mg/dL (7.0-18.0); CARBON DIOXIDE,CO2 22.9 mmol/L (21.0-32.0); CHLORIDE,CL 104 mmol/L (98-107); GLUCOSE RANDOM 88 mg/dL (74-106); POTASSIUM,K 3.6 mmol/L (3.5-5.1); SODIUM,NA 137 mmol/L (136-145)
[2020-04-29] MEDS: Hydrocortisone 1% Crm 30 GM Tube TOP SCH ×2 (06:25→22:11)
[2020-04-29] MEDS: Pantoprazole 40 MG in Sodium Chloride 0.9% 10 ML IV SCH ×2 (09:28→22:12)
[2020-04-29] MEDS: methylPREDNISolone Sodium Succinate 40 MG/1 ML SDV IVPUSH SCH (09:29)
--- NOTE | 2020-04-29 09:33 | CT ---
Indication: Increasing abdominal pain. Technique: Volumetric multidetector CT images of the abdomen and pelvis were without the administration of intravenous contrast. Comparison: CT abdomen and pelvis April 24, 2020 Findings: The lung bases are clear. The liver is normal in attenuation without intrahepatic biliary ductal dilatation. The gallbladder is unremarkable without evidence of radiopaque calculus. There is no significant common biliary ductal dilatation or abrupt cut off. The spleen is normal in attenuation and size. The stomach and duodenum are grossly unremarkable. The pancreas is normal in attenuation without significant atrophy. The adrenal glands are unremarkable. There are punctate nonobstructing calculi within the collecting systems, the largest measuring up to 2.1 millimeters. There is no evidence of hydronephrosis or distal obstructing calculus. Evaluation of enteric structures is somewhat limited due to lack of IV contrast with redemonstration of right lower quadrant colostomy. Previously seen colonic wall thickening is not well appreciated on current exam. Nonspecific fluid within the small bowel is appreciated which may represent minimal enteritis changes. The appendix is not visualized. There is no significant mesenteric, retroperitoneal, or pelvic sidewall lymph nodes. The aorta is nonaneurysmal. There is no significant atherosclerotic disease appreciated. The solid pelvic viscera are grossly unremarkable. There is no free fluid or free air. The anterior abdominal wall is intact without significant hernias. The lumbar vertebral body heights are grossly maintained with minimal endplate Schmorl`s defects, similar to previous exam. There is no evidence of displaced fracture. Impression: Evaluation of enteric structures is limited due to lack of IV or enteric contrast. Redemonstration of right lower quadrant colostomy. Previously seen colonic wall thickening is not as well appreciated. There is nonspecific fluid seen within small bowel loops of the left upper quadrant which could represent minimal enteritis changes. Nephrolithiasis without evidence of definite obstructive uropathy. Please note that all CT scans at this facility use dose modulation, iterative reconstruction, and/or weight-based dosing when appropriate to reduce radiation dose to as low as reasonably achievable. Dictated by Sukh Vazquez MD @ Apr 29 2020 9:26AM Signed by Dr. Sukh Vazquez @ Apr 29 2020 9:31AM
--- NOTE | 2020-04-29 11:41 | PCM.PN ---
- General Info Date of Service: 04/29/20 Admission Dx/Problem (Free Text): Admission Diagnosis/Problem Admission Diagnosis/Problem Ulcerative colitis Subjective Update: Reports she had a rough night with pain and nausea. Was given morphine last evening. Had an okay overnight. This morning she is feeling slightly nauseated and having some morphine. Will obtain CT scan of the abdomen. Denies any chest pain. She reports she is tolerating diet and actually wanting more to eat. She is also very eager to go home we will continue to monitor. Functional Status: Reports: Pain Controlled, Tolerating Diet, Ambulating, Urinating - Review of Systems General: Reports: Malaise HEENT: Reports: No Symptoms. Denies: Headaches, Sinus Congestion Pulmonary: Reports: No Symptoms. Denies: Shortness of Breath Cardiovascular: Reports: No Symptoms. Denies: Chest Pain Gastrointestinal: Reports: Abdominal Pain, Other (Ostomy in place) Genitourinary: Reports: No Symptoms. Denies: Dysuria, Frequency, Burning Musculoskeletal: Reports: No Symptoms Skin: Reports: No Symptoms Neurological: Reports: No Symptoms Psychiatric: Reports: No Symptoms - Patient Data Vitals - Most Recent: Last Vital Signs Temp 98.8 F 04/29/20 11:33 Pulse 62 04/29/20 11:33 Resp 13 04/29/20 11:33 BP 118/58 L 04/29/20 11:33 Pulse Ox 99 04/29/20 11:33 Weight - Most Recent: 56.472 kg I&O - Last 24 Hours: Intake & Output 04/28/20 04/29/20 04/29/20 22:59 06:59 14:59 Intake Total 1310 1250 Output Total 1650 1700 Balance -340 -450 Lab Results Last 24 Hours: Laboratory Results - last 24 hr 04/29/20 04/29/20 Range/Units 04:55 04:55 WBC 10.29 (4.0-11.0) K/uL RBC 4.18 L (4.30-5.90) M/uL Hgb 10.1 L (12.0-16.0) g/dL Hct 31.8 L (36.0-46.0) % MCV 76.1 L (80.0-98.0) fL MCH 24.2 L (27.0-32.0) pg MCHC 31.8 (31.0-37.0) g/dL RDW Std Deviation 44.4 (28.0-62.0) fl RDW Coeff of Buck 16 H (11.0-15.0) % Plt Count 432 H (150-400) K/uL MPV 10.60 (7.40-12.00) fL Neut % (Auto) 48.3 (48.0-80.0) % Lymph % (Auto) 41.0 H (16.0-40.0) % [place] % (Auto) 9.3 (0.0-15.0) % Eos % (Auto) 1.1 (0.0-7.0) % Baso % (Auto) 0.3 (0.0-1.5) % Neut # (Auto) 5.0 (1.4-5.7) K/uL Lymph # (Auto) 4.2 H (0.6-2.4) K/uL [place] # (Auto) 1.0 H (0.0-0.8) K/uL Eos # (Auto) 0.1 (0.0-0.7) K/uL Baso # (Auto) 0.0 (0.0-0.1) K/uL Nucleated RBC % 0.0 /100WBC Nucleated RBCs # 0 K/uL Sodium 137 (136-145) mmol/L Potassium 3.6 (3.5-5.1) mmol/L Chloride 104 (98-107) mmol/L Carbon Dioxide 22.9 (21.0-32.0) mmol/L BUN 11 (7.0-18.0) mg/dL Creatinine 0.9 (0.6-1.0) mg/dL Est Cr Clr Drug Dosing 86.00 mL/min Estimated GFR (MDRD) > 60.0 ml/min Glucose 88 (74-106) mg/dL Calcium 8.7 (8.5-10.1) mg/dL Magnesium 1.8 (1.8-2.4) mg/dL Rohit Results Last 24 Hours: Microbiology 04/24/20 14:56 Aerobic Blood Culture - Preliminary Blood - Venous - Lab Draw NO GROWTH AFTER 4 DAYS Anaerobic Blood Culture - Preliminary NO GROWTH AFTER 4 DAYS 04/24/20 08:20 Stool Culture - Preliminary Stool / Feces Shiga Toxin I & II - Final 04/24/20 06:40 Aerobic Blood Culture - Preliminary Blood - Venous NO GROWTH AFTER 4 DAYS Anaerobic Blood Culture - Final Med Orders - Current: Current Medications Hydrocodone Bitart/Acetaminophen ([place] 325-10 Mg) 1 tab PO Q4H PRN PRN Reason: Pain Last Admin: 04/29/20 08:22 Dose: 1 tab Documented by: Albuterol/Ipratropium (Duoneb 3.0-0.5 Mg/3 Ml) 3 ml NEB Q4HRRT PRN PRN Reason: Shortness Of Breath/wheezing Hydrocortisone (Hydrocortisone 1% Crm) 0 gm TOP BID [facility] Pantoprazole Sodium 40 mg/ (Sodium Chloride) 10 mls @ 200 mls/hr IV Q12HR [facility] Last Admin: 04/29/20 09:28 Dose: 200 mls/hr Documented by: Piperacillin Sod/Tazobactam (Sod 3.375 gm/ Sodium Chloride) 50 mls @ 100 mls/hr IV Q8H [facility] Last Admin: 04/29/20 05:43 Dose: 100 mls/hr Documented by: Methylprednisolone Sodium Succinate (Solu-Medrol) 40 mg IVPUSH DAILY [facility] Last Admin: 04/29/20 09:29 Dose: 40 mg Documented by: Ondansetron HCl (Zofran) 4 mg IVPUSH Q4H PRN PRN Reason: Nausea/Vomiting Last Admin: 04/29/20 11:25 Dose: 4 mg Documented by: Discontinued Medications Hydrocodone Bitart/Acetaminophen ([place] 325-5 Mg) 1 tab PO Q4H PRN PRN Reason: Pain Last Admin: 04/28/20 05:23 Dose: 1 tab Documented by: Heparin Sodium (Porcine) (Heparin Sodium) 5,000 units SUBCUT Q8H [facility] Last Admin: 04/24/20 11:31 Dose: 5,000 units Documented by: Hydrocortisone (Hydrocortisone 1% Crm) 0 gm TOP TID [facility] Last Admin: 04/29/20 06:25 Dose: 1 applic Documented by: Hydrocortisone/Pramoxine (Proctofoam-Hc 1%-1% Foam) 0 gm RC QID [facility] Hydromorphone HCl (Dilaudid) 1 mg IVPUSH ONETIME ONE Stop: 04/24/20 06:05 Last Admin: 04/24/20 06:46 Dose: 1 mg Documented by: Hydromorphone HCl (Dilaudid) 1 mg IVPUSH ONETIME ONE Stop: 04/24/20 08:38 Last Admin: 04/24/20 08:47 Dose: 1 mg Documented by: Sodium Chloride (Normal Saline) 1,000 mls @ 999 mls/hr IV .BOLUS ONE Stop: 04/24/20 07:04 Last Admin: 04/24/20 06:45 Dose: 999 mls/hr Documented by: Sodium Chloride (Normal Saline) 1,000 mls @ 125 mls/hr IV .Bolus ONE Stop: 04/24/20 16:41 Last Admin: 04/24/20 08:53 Dose: 125 mls/hr Documented by: Lactated Ringer's (Ringers, Lactated) 1,000 mls @ 125 mls/hr IV Q8H [facility] Last Admin: 04/27/20 01:34 Dose: Not Given Documented by: Potassium Chloride/Sodium Chloride (Normal Saline With 40 Meq Kcl) 1,000 mls @ 150 mls/hr IV ASDIRECTED [facility] Stop: 04/25/20 18:39 Last Admin: 04/25/20 13:21 Dose: 150 mls/hr Documented by: Magnesium Sulfate (Magnesium Sulfate In Water 2 Gm/50 Ml) 2 gm in 50 mls @ 50 mls/hr IV ONETIME ONE Stop: 04/25/20 13:04 Last Admin: 04/25/20 13:11 Dose: 50 mls/hr Documented by: Magnesium Sulfate (Magnesium Sulfate In Water 4 Gm/100 Ml) 4 gm in 100 mls @ 50 mls/hr IV NOW STA Stop: 04/26/20 13:07 Last Admin: 04/26/20 11:35 Dose: 50 mls/hr Documented by: Magnesium Sulfate (Magnesium Sulfate In Water 2 Gm/50 Ml) 2 gm in 50 mls @ 50 mls/hr IV ONETIME ONE Stop: 04/28/20 09:00 Last Admin: 04/28/20 08:55 Dose: 50 mls/hr Documented by: Iopamidol (Isovue Multipack-370 (76%)) 100 ml IVPUSH ONETIME STA Stop: 04/24/20 07:26 Last Admin: 04/24/20 07:25 Dose: 100 ml Documented by: Methylprednisolone Sodium Succinate (Solu-Medrol) 40 mg IVPUSH ONETIME ONE Stop: 04/24/20 08:46 Last Admin: 04/24/20 08:53 Dose: 40 mg Documented by: Methylprednisolone Sodium Succinate (Solu-Medrol) 40 mg IVPUSH ONETIME ONE Stop: 04/25/20 12:06 Last Admin: 04/25/20 13:12 Dose: 40 mg Documented by: Morphine Sulfate (Morphine) 2 mg IVPUSH Q2H PRN PRN Reason: Pain (severe 7-10) Stop: 04/25/20 10:31 Last Admin: 04/25/20 11:06 Dose: 2 mg Documented by: Morphine Sulfate (Morphine) 2 mg IVPUSH Q4H PRN PRN Reason: Pain Last Admin: 04/26/20 05:53 Dose: 2 mg Documented by: Morphine Sulfate (Morphine) 2 mg IVPUSH Q4H PRN PRN Reason: Pain Last Admin: 04/27/20 08:28 Dose: 2 mg Documented by: Morphine Sulfate (Morphine) 2 mg IVPUSH Q6H PRN PRN Reason: Pain Last Admin: 04/27/20 14:32 Dose: 2 mg Documented by: Morphine Sulfate (Morphine) 2 mg IVPUSH ONETIME ONE Stop: 04/28/20 20:34 Last Admin: 04/28/20 20:41 Dose: 2 mg Documented by: Ondansetron HCl (Zofran) 4 mg IVPUSH ONETIME ONE Stop: 04/24/20 07:34 Last Admin: 04/24/20 07:39 Dose: 4 mg Documented by: Oxycodone HCl (Oxycodone) 5 mg PO Q4H PRN PRN Reason: pain Last Admin: 04/26/20 14:20 Dose: 5 mg Documented by: Potassium Chloride (Klor-Con M20) 40 meq PO ONETIME ONE Stop: 04/28/20 07:55 Last Admin: 04/28/20 08:42 Dose: 40 meq Documented by: - Exam General: Alert, Oriented, Cooperative, No Acute Distress Lungs: Clear to Auscultation, Normal Respiratory Effort Cardiovascular: Regular Rate, Regular Rhythm GI/Abdominal Exam: Normal Bowel Sounds, Soft, Tender, Other (Ostomy in place, stoma appears pink. Stool is more green in color continues to be slightly loose. Denies any more rectal discharge.) Extremities: Normal Inspection, Normal Range of Motion, Non-Tender, No Pedal Edema Neurological: No New Focal Deficit Psy/Mental Status: Alert, Normal Affect, Normal Mood Sepsis Event Note - Evaluation Sepsis Screening Result: No Definite Risk - Focused Exam Vital Signs: Vital Signs Temp Pulse Resp BP Pulse Ox 04/29/20 11:33 98.8 F 62 13 118/58 L 99 04/29/20 07:27 97.8 F 72 14 118/62 99 04/29/20 04:00 96.9 F 62 15 120/56 L 99 - Problem List & Annotations (1) Abdominal pain SNOMED Code(s): 10746334 Code(s): R10.9 - UNSPECIFIED ABDOMINAL PAIN Status: Acute Priority: Medium Current Visit: Yes Qualifiers: Abdominal location: generalized Qualified Code(s): R10.84 - Generalized abdominal pain (2) Enteritis SNOMED Code(s): 79169084 Code(s): K52.9 - NONINFECTIVE GASTROENTERITIS AND COLITIS, UNSPECIFIED Status: Acute Priority: High Current Visit: Yes (3) History of ulcerative colitis SNOMED Code(s): 952616321 Code(s): Z87.19 - PERSONAL HISTORY OF OTHER DISEASES OF THE DIGESTIVE SYSTEM Status: Chronic Current Visit: No (4) Hx of Clostridium difficile infection SNOMED Code(s): 922053310, 919123607 Code(s): Z86.19 - PERSONAL HISTORY OF OTHER INFECTIOUS AND PARASITIC DISEASES Status: Chronic Current Visit: No (5) Ileostomy present SNOMED Code(s): 360913377 Code(s): Z93.2 - ILEOSTOMY STATUS Status: Chronic Current Visit: Yes - Problem List Review Problem List Initiated/Reviewed/Updated: Yes - My Orders Last 24 Hours: My Active Orders 04/29/20 Lunch Full Liquid Diet [DIET] 04/29/20 21:00 Hydrocortisone [Hydrocortisone 1% Crm] See Dose Instructions TOP BID 04/30/20 05:11 BASIC METABOLIC PANEL,BMP [CHEM] AM CBC WITH AUTO DIFF [HEME] AM MAGNESIUM [CHEM] AM 05/01/20 05:11 BASIC METABOLIC PANEL,BMP [CHEM] AM CBC WITH AUTO DIFF [HEME] AM MAGNESIUM [CHEM] AM - Plan Plan:: 19 y/o F admitted for abdominal pain, rectal discharge and bleeding 1. Enteritis/ulcerative colitis flare -Hydrocortisone 2 times daily to rectum -Change Lomotil to prednisone 40 p.o. daily -Full liquid diet -Hydrocodone 10/325 every 4 hours as needed -Continue to monitor stools closely -Continue Zosyn -Ostomy cares per patient -CT shows mild enteritis and small bowel. Rectal thickening has improved and not as well pronounced as previous CT. No new findings -Discussed CT findings with patient will see how she is feeling this afternoon and possible plan for discharge in a.m. VTE prophylaxis: SCDs only and ambulation GI prophylaxis: Protonix CODE STATUS: Full code Dispo: Likely discharge in a.m.
[2020-04-30] MEDS: Piperacillin/Tazobactam 3.375 GM in Sodium Chloride 0.9% 50 ML IV SCH (06:01)
[2020-04-30 06:07] LABS: BLOOD UREA NITROGEN,BUN 9 mg/dL (7.0-18.0); CARBON DIOXIDE,CO2 24.7 mmol/L (21.0-32.0); CHLORIDE,CL 102 mmol/L (98-107); GLUCOSE RANDOM 79 mg/dL (74-106); POTASSIUM,K 3.8 mmol/L (3.5-5.1); SODIUM,NA 136 mmol/L (136-145)
[2020-04-30] MEDS: Acetaminophen/HYDROcodone 325-10 MG Tab PO PRN (08:10)
[2020-04-30] MEDS: Hydrocortisone 1% Crm 30 GM Tube TOP SCH (09:27)
[2020-04-30] MEDS: Pantoprazole 40 MG in Sodium Chloride 0.9% 10 ML IV SCH (09:33)
--- NOTE | 2020-04-30 10:38 | PCM.DCSUM1 ---
Discharge Summary - Hospital Course Brief History: 19-year-old female with a history of IBD s/p colectomy (Near total per patient, colostomy bag, who presents today for diffuse abdominal pain. Patient states that she got her procedure done at [facility] in August 2019 and has been doing well. She was supposed to get her reversal done in January 2020 but couldn't get it done due to insurance lapse. Patient states that over last few days she has been having increasing pain, rectal discharge followed by "blood dripping into the toilet" when she pushes. Patient states that she has had some off and on bleeding via rectum last few months but didn't think much of it. but now it is getting more noticeable. Pain is worse with eating and turning to her side. Has some associated chills but no fever. Has some supra pubic discomfort as well. CT scan was performed in the ER which showed s/p colectomy, with minimal bowel thickening in distal ileum, representing non-specific enteritis. Patient was admitted for further management. Diagnosis: Stroke: No - Discharge Data Discharge Date: 04/30/20 Discharge Disposition: Home, Self-Care 01 Condition: Good - Referral to Home Health Primary Care Physician: Janelle Dela Cruz NP - Discharge Diagnosis/Problem(s) (1) Abdominal pain SNOMED Code(s): 12856238 ICD Code: R10.9 - UNSPECIFIED ABDOMINAL PAIN Status: Acute Priority: Medium Current Visit: Yes Qualifiers: Abdominal location: generalized Qualified Code(s): R10.84 - Generalized abdominal pain (2) Enteritis SNOMED Code(s): 70011580 ICD Code: K52.9 - NONINFECTIVE GASTROENTERITIS AND COLITIS, UNSPECIFIED Status: Acute Priority: High Current Visit: Yes (3) History of ulcerative colitis SNOMED Code(s): 586661572 ICD Code: Z87.19 - PERSONAL HISTORY OF OTHER DISEASES OF THE DIGESTIVE SYSTEM Status: Chronic Current Visit: No (4) Hx of Clostridium difficile infection SNOMED Code(s): 045845577, 436587204 ICD Code: Z86.19 - PERSONAL HISTORY OF OTHER INFECTIOUS AND PARASITIC DISEASES Status: Chronic Current Visit: No (5) Ileostomy present SNOMED Code(s): 878894739 ICD Code: Z93.2 - ILEOSTOMY STATUS Status: Chronic Current Visit: Yes - Patient Summary/Data Hospital Course: Admitting diagnoses: Abdominal pain Gastroenteritis Possible UC flare Discharge diagnoses Abdominal pain Gastroenteritis UC flare Other H History of colectomy with ileostomy placement History of C. difficile Keysha admitted secondary to increasing abdominal pain and loose stools in her ileostomy. She was also noted to have some rectal discharge and bleeding. She was admitted and placed on Zosyn as CT noted possible inflammatory changes. And also noted inflammatory changes in the rectum. She was placed on rectal steroids upon consultation with GI in [place]. She was also placed on daily Solu- Medrol 40 mg for possible UC flare. She slowly improved. Diet was slowly advanced and she was treated with hydrocodone as needed for pain. Stools became more soft and nondark-colored in ileostomy. Stool cultures were obtained on admission which were negative for any bacterial causes including C. difficile Shigella diarrhea. She reports she is feeling much improved today tolerating t. She'll be discharged home with hydrocortisone rectal suppositories nightly for 3 more weeks. She'll also be discharged home on monthly taper of prednisone. We will stop antibiotics as she likely had no infectious cause and due to her history of C. difficile colitis. She will have follow-up appointment with PCP in 1 week. She also notified me that she will be meeting with her GI doctor over telemedicine as she has been in contact with the nurses at [facility]. She is to arrange follow-up with them as she is scheduled to have takedown surgery in the next couple months. She is to return to the ER or clinic if concerns should arise. - Patient Instructions Diet: GI Soft/Low Residue/Low Fiber Activity: As Tolerated, No Strenuous Activities Driving: Do Not Drive (When taking narcotics) Showering/Bathing: May Shower Notify Provider of: Fever, Increased Pain, Swelling and Redness, Drainage - Discharge Plan *PRESCRIPTION DRUG MONITORING PROGRAM REVIEWED*: Not Applicable *COPY OF PRESCRIPTION DRUG MONITORING REPORT IN PATIENT MEJIA: Not Applicable Prescriptions/Med Rec: Hydrocortisone [Hydrocortisone 1% Crm] 1 applic RECTAL BEDTIME #1 tube Acetaminophen/HYDROcodone [[place] 325-10 MG] 1 tab PO Q8H PRN #6 tablet PRN Reason: Pain predniSONE [Prednisone] 10 - 40 mg PO DAILY #25 tablet Home Medications: Home Meds Acetaminophen/HYDROcodone [[place] 325-10 MG] 1 tab PO Q8H PRN #6 tablet 04/30/20 [Rx] Hydrocortisone [Hydrocortisone 1% Crm] 1 applic RECTAL BEDTIME #1 tube 04/30/20 [Rx] predniSONE [Prednisone] 10 - 40 mg PO DAILY #25 tablet 04/30/20 [Rx] Oxygen Therapy Mode: Room Air Referrals: Roddy Allen MD [Ordering Only Provider] - 05/10/20 10:00 am - Discharge Summary/Plan Comment DC Time >30 min.: No - Patient Data Vitals - Most Recent: Last Vital Signs Temp 97.9 F 04/30/20 07:10 Pulse 76 04/30/20 07:10 Resp 14 04/30/20 07:10 BP 111/56 L 04/30/20 07:10 Pulse Ox 97 04/30/20 07:10 Weight - Most Recent: 56.472 kg I&O - Last 24 hours: Intake & Output 04/29/20 04/30/20 04/30/20 22:59 06:59 14:59 Intake Total 1000 1600 50 Output Total 900 1600 Balance 100 0 50 Lab Results - Last 24 hrs: Laboratory Results - last 24 hr 04/30/20 04/30/20 Range/Units 05:15 05:15 WBC 9.95 (4.0-11.0) K/uL RBC 4.63 (4.30-5.90) M/uL Hgb 11.2 L (12.0-16.0) g/dL Hct 35.1 L (36.0-46.0) % MCV 75.8 L (80.0-98.0) fL MCH 24.2 L (27.0-32.0) pg MCHC 31.9 (31.0-37.0) g/dL RDW Std Deviation 44.6 (28.0-62.0) fl RDW Coeff of Buck 16 H (11.0-15.0) % Plt Count 493 H (150-400) K/uL MPV 10.40 (7.40-12.00) fL Neut % (Auto) 47.5 L (48.0-80.0) % Lymph % (Auto) 41.9 H (16.0-40.0) % [place] % (Auto) 9.5 (0.0-15.0) % Eos % (Auto) 0.8 (0.0-7.0) % Baso % (Auto) 0.3 (0.0-1.5) % Neut # (Auto) 4.7 (1.4-5.7) K/uL Lymph # (Auto) 4.2 H (0.6-2.4) K/uL [place] # (Auto) 1.0 H (0.0-0.8) K/uL Eos # (Auto) 0.1 (0.0-0.7) K/uL Baso # (Auto) 0.0 (0.0-0.1) K/uL Nucleated RBC % 0.0 /100WBC Nucleated RBCs # 0 K/uL Sodium 136 (136-145) mmol/L Potassium 3.8 (3.5-5.1) mmol/L Chloride 102 (98-107) mmol/L Carbon Dioxide 24.7 (21.0-32.0) mmol/L BUN 9 (7.0-18.0) mg/dL Creatinine 0.9 (0.6-1.0) mg/dL Est Cr Clr Drug Dosing 86.00 mL/min Estimated GFR (MDRD) > 60.0 ml/min Glucose 79 (74-106) mg/dL Calcium 9.1 (8.5-10.1) mg/dL Magnesium 1.8 (1.8-2.4) mg/dL JERO Results - Last 24 hrs: Microbiology 04/24/20 14:56 Aerobic Blood Culture - Final Blood - Venous - Lab Draw NO GROWTH AFTER 5 DAYS Anaerobic Blood Culture - Final NO GROWTH AFTER 5 DAYS 04/24/20 06:40 Aerobic Blood Culture - Final Blood - Venous NO GROWTH AFTER 5 DAYS Anaerobic Blood Culture - Final Med Orders - Current: Current Medications Hydrocodone Bitart/Acetaminophen ([place] 325-10 Mg) 1 tab PO Q4H PRN PRN Reason: Pain Last Admin: 04/30/20 08:10 Dose: 1 tab Documented by: Albuterol/Ipratropium (Duoneb 3.0-0.5 Mg/3 Ml) 3 ml NEB Q4HRRT PRN PRN Reason: Shortness Of Breath/wheezing Hydrocortisone (Hydrocortisone 1% Crm) 0 gm TOP BID DON[facility] Last Admin: 04/30/20 09:27 Dose: 1 gm Documented by: Pantoprazole Sodium 40 mg/ (Sodium Chloride) 10 mls @ 200 mls/hr IV Q12HR [facility] Last Admin: 04/30/20 09:33 Dose: 200 mls/hr Documented by: Piperacillin Sod/Tazobactam (Sod 3.375 gm/ Sodium Chloride) 50 mls @ 100 mls/hr IV Q8H [facility] Last Admin: 04/30/20 06:01 Dose: 100 mls/hr Documented by: Methylprednisolone Sodium Succinate (Solu-Medrol) 40 mg IVPUSH DAILY [facility] Last Admin: 04/29/20 09:29 Dose: 40 mg Documented by: Ondansetron HCl (Zofran) 4 mg IVPUSH Q4H PRN PRN Reason: Nausea/Vomiting Last Admin: 04/29/20 11:25 Dose: 4 mg Documented by: Discontinued Medications Hydrocodone Bitart/Acetaminophen ([place] 325-5 Mg) 1 tab PO Q4H PRN PRN Reason: Pain Last Admin: 04/28/20 05:23 Dose: 1 tab Documented by: Heparin Sodium (Porcine) (Heparin Sodium) 5,000 units SUBCUT Q8H [facility] Last Admin: 04/24/20 11:31 Dose: 5,000 units Documented by: Hydrocortisone (Hydrocortisone 1% Crm) 0 gm TOP TID [facility] Last Admin: 04/29/20 06:25 Dose: 1 applic Documented by: Hydrocortisone/Pramoxine (Proctofoam-Hc 1%-1% Foam) 0 gm RC QID [facility] Hydromorphone HCl (Dilaudid) 1 mg IVPUSH ONETIME ONE Stop: 04/24/20 06:05 Last Admin: 04/24/20 06:46 Dose: 1 mg Documented by: Hydromorphone HCl (Dilaudid) 1 mg IVPUSH ONETIME ONE Stop: 04/24/20 08:38 Last Admin: 04/24/20 08:47 Dose: 1 mg Documented by: Sodium Chloride (Normal Saline) 1,000 mls @ 999 mls/hr IV .BOLUS ONE Stop: 04/24/20 07:04 Last Admin: 04/24/20 06:45 Dose: 999 mls/hr Documented by: Sodium Chloride (Normal Saline) 1,000 mls @ 125 mls/hr IV .Bolus ONE Stop: 04/24/20 16:41 Last Admin: 04/24/20 08:53 Dose: 125 mls/hr Documented by: Lactated Ringer's (Ringers, Lactated) 1,000 mls @ 125 mls/hr IV Q8H [facility] Last Admin: 04/27/20 01:34 Dose: Not Given Documented by: Potassium Chloride/Sodium Chloride (Normal Saline With 40 Meq Kcl) 1,000 mls @ 150 mls/hr IV ASDIRECTED [facility] Stop: 04/25/20 18:39 Last Admin: 04/25/20 13:21 Dose: 150 mls/hr Documented by: Magnesium Sulfate (Magnesium Sulfate In Water 2 Gm/50 Ml) 2 gm in 50 mls @ 50 mls/hr IV ONETIME ONE Stop: 04/25/20 13:04 Last Admin: 04/25/20 13:11 Dose: 50 mls/hr Documented by: Magnesium Sulfate (Magnesium Sulfate In Water 4 Gm/100 Ml) 4 gm in 100 mls @ 50 mls/hr IV NOW STA Stop: 04/26/20 13:07 Last Admin: 04/26/20 11:35 Dose: 50 mls/hr Documented by: Magnesium Sulfate (Magnesium Sulfate In Water 2 Gm/50 Ml) 2 gm in 50 mls @ 50 mls/hr IV ONETIME ONE Stop: 04/28/20 09:00 Last Admin: 04/28/20 08:55 Dose: 50 mls/hr Documented by: Iopamidol (Isovue Multipack-370 (76%)) 100 ml IVPUSH ONETIME STA Stop: 04/24/20 07:26 Last Admin: 04/24/20 07:25 Dose: 100 ml Documented by: Methylprednisolone Sodium Succinate (Solu-Medrol) 40 mg IVPUSH ONETIME ONE Stop: 04/24/20 08:46 Last Admin: 04/24/20 08:53 Dose: 40 mg Documented by: Methylprednisolone Sodium Succinate (Solu-Medrol) 40 mg IVPUSH ONETIME ONE Stop: 04/25/20 12:06 Last Admin: 04/25/20 13:12 Dose: 40 mg Documented by: Morphine Sulfate (Morphine) 2 mg IVPUSH Q2H PRN PRN Reason: Pain (severe 7-10) Stop: 04/25/20 10:31 Last Admin: 04/25/20 11:06 Dose: 2 mg Documented by: Morphine Sulfate (Morphine) 2 mg IVPUSH Q4H PRN PRN Reason: Pain Last Admin: 04/26/20 05:53 Dose: 2 mg Documented by: Morphine Sulfate (Morphine) 2 mg IVPUSH Q4H PRN PRN Reason: Pain Last Admin: 04/27/20 08:28 Dose: 2 mg Documented by: Morphine Sulfate (Morphine) 2 mg IVPUSH Q6H PRN PRN Reason: Pain Last Admin: 04/27/20 14:32 Dose: 2 mg Documented by: Morphine Sulfate (Morphine) 2 mg IVPUSH ONETIME ONE Stop: 04/28/20 20:34 Last Admin: 04/28/20 20:41 Dose: 2 mg Documented by: Ondansetron HCl (Zofran) 4 mg IVPUSH ONETIME ONE Stop: 04/24/20 07:34 Last Admin: 04/24/20 07:39 Dose: 4 mg Documented by: Oxycodone HCl (Oxycodone) 5 mg PO Q4H PRN PRN Reason: pain Last Admin: 04/26/20 14:20 Dose: 5 mg Documented by: Potassium Chloride (Klor-Con M20) 40 meq PO ONETIME ONE Stop: 04/28/20 07:55 Last Admin: 04/28/20 08:42 Dose: 40 meq Documented by: - Exam General: Reports: Alert, Oriented, Cooperative, No Acute Distress Lungs: Reports: Clear to Auscultation, Normal Respiratory Effort Cardiovascular: Reports: Regular Rate, Regular Rhythm GI/Abdominal Exam: Normal Bowel Sounds, Soft, Non-Tender Extremities: Normal Inspection, Normal Range of Motion Wound/Incisions: Reports: Healing Well Neurological: Reports: No New Focal Deficit Psy/Mental Status: Reports: Alert, Normal Affect, Normal Mood
== END 2020-04-30 12:45 | disposition home or self-care (01) | DRG 387 ==
LOC: MW.ED 05:31 → MW.MS 09:25
PROVIDERS: ADMIT Student in an Organized Health Care Education/Training Program; ATTEND Student in an Organized Health Care Education/Training Program
DX: K51.911 Ulcerative colitis, unspecified with rectal bleeding (principal); K52.9 Noninfective gastroenteritis and colitis, unspecified; D64.9 Anemia, unspecified; Z20.822 Contact with and (suspected) exposure to COVID-19; F90.9 Attention-deficit hyperactivity disorder, unspecified type; Z86.19 Personal history of other infectious and parasitic diseases; Z93.2 Ileostomy status
CPT/HCPCS: 36415; 74176; 74176-26; 74177; 74177-26; 80048; 80053; 81001; 81025; 82550; 83605; 83690; 83735; 84100; 85025; 87040; 87045; 87046; 87086; 87324; 87449; 87899; 96361; 96374; 96375; 99283; 99285-25; A9270-GY; C9113; J1170; J1644; J2270; J2405; J2543; J2920; J3475; J3480; J7030; J7120; Q9967; U0002

== ENCOUNTER 2020-07-04 16:37 | Emergency (ER) | payer MEDICAID ==
[2020-07-04] MEDS ORDERED: Amoxicillin/Clavulanate K 875-125 MG Tab PO STA (16:49)
--- NOTE | 2020-07-04 16:55 | EDM.PDOC ---
ED HPI GENERAL MEDICAL PROBLEM - General Chief Complaint: ENT Problem Stated Complaint: NOSE PAIN, SWOLLEN Time Seen by Provider: 07/04/20 16:38 Source of Information: Reports: Patient History Limitations: Reports: No Limitations - History of Present Illness INITIAL COMMENTS - FREE TEXT/NARRATIVE: HISTORY AND PHYSICAL: History of present illness: Patient is a 20-year-old female who presents to the emergency room with complaints of "nose pain" pointing to her maxillary sinuses bilaterally. She states she has a lot of pressure and discomfort with palpation. Anytime she bends over or puts pressure in the sinus cavity she has increased pain. Denies any nasal congestion or drainage. Patient denies any fever, chills, headache, change in vision, syncope or near syncope. Denies any chest pain, back pain, shortness of breath or cough. Patient does have a history of IBD and ulcerative colitis although has no new or concerning complaints of GI symptoms. States she has been eating and drinking appropriately. Denies any injury or trauma. Review of systems: As per history of present illness and below otherwise all systems reviewed and negative. Past medical history: As per history of present illness and as reviewed below otherwise noncontributory. Surgical history: As per history of present illness and as reviewed below otherwise noncontributory. Social history: See social history for further information Family history: As per history of present illness and as reviewed below otherwise noncontributory. Physical exam: General: Well developed and well nourished 20-year-old female. Alert and orientated x 3. Nontoxic in appearance and in no acute distress. Vital signs are stable and have been reviewed by me. Nursing notes were reviewed. HEENT: Atraumatic, normocephalic, pupils equal and reactive bilaterally, negative for conjunctival pallor or scleral icterus, mucous membranes moist, nares patent and intact bilaterally, bilateral maxillary sinus tenderness, TMs normal bilaterally, throat clear, neck supple, nontender, trachea midline. No drooling or trismus noted. No meningeal signs. No hot potato voice noted. Lungs: Clear to auscultation bilaterally. No wheezes, rales, or rhonchi. Normal work of breathing, no accessory muscles used. Heart: S1S2, regular rate and rhythm without overt murmur, gallops, or rubs. No JVD. No peripheral edema Abdomen: Soft, nondistended, nontender. Skin: Intact, warm, dry. No lesions or rashes noted. Hematologic: No petechiae or purpra. Mucosa appropriate color and normal nail bed color and refill. Extremities: Atraumatic, moves all extremities per self without difficulty or deficits, negative for cords or calf pain. Neurovascular unremarkable. Neuro: Awake, alert, oriented. Cranial nerves II through XII unremarkable. Cerebellum unremarkable. Motor and sensory unremarkable throughout. Exam nonfocal. Psychiatric: Mood and affect are appropriate. Normal thought process. Answering questions appropriately. Notes: *This patient was seen and evaluated during the 2019 SARS-CoV-2 novel coronavirus pandemic period. Community viral transmission is ongoing at time of this encounter and the emergency department is operating under pandemic response procedures. Patient had mentioned to triage that she has had issues within the last few months regarding her ulcerative colitis and irritable bowel disease. When asked about it during my physical exam she states this is chronic and has no new concerns or request for any diagnostics regarding this. She is here today strictly for her sinus infection. I did encourage her to follow-up with her primary care provider or return to the emergency room if she should have new concerns regarding her GI or issues. I have talked with the patient about today's findings, in addition to providing specific details for plan of care. Reassessment at the time of disposition demonstrates that the patient is in no acute distress. The patient is stable for discharge, counseling was provided and we discussed in great detail signs and symptoms that would prompt them to return to the Emergency Department. Medication, follow up and supportive care measures were reviewed and discussed. Voices understanding and is agreeable to plan of care. Denies any further questions or concerns at this time. Diagnostics: None Therapeutics: Augmentin Prescription: Augmentin Impression: Acute sinusitis Plan: 1. You were evaluated today on an emergent basis. Take the medication as prescribed. Adequate rest and hydration, warm facial packs, and steam mist humidifiers may be helpful. You can use [id number] products for symptomatic care. 2. You can alternate Tylenol and ibuprofen as needed for pain and fever management. 3. We encourage you to follow up with ENT specialist for re-evaluation and further care/management. 4. If your symptoms should worsen, new symptoms develop or any of the signs and symptoms we discussed should arise please return to the emergency room or call 911 (if needed). Definitive disposition and diagnosis as appropriate pending reevaluation and review of above. Nose Pain Score (Numeric/FACES): 9 - Related Data Allergies Allergy/AdvReac Type Severity Reaction Status Date / Time No Known Allergies Allergy Verified 07/04/20 16:46 Home Meds: Home Meds Acetaminophen/HYDROcodone [[place] 325-10 MG] 1 tab PO Q8H PRN #6 tablet 04/30/20 [Rx] Hydrocortisone [Hydrocortisone 1% Crm] 1 applic RECTAL BEDTIME #1 tube 04/30/20 [Rx] predniSONE [Prednisone] 10 - 40 mg PO DAILY #25 tablet 04/30/20 [Rx] Amoxicillin/Clavulanate K [Augmentin 875-125 MG] 1 tab PO BID 10 Days #20 tablet 07/04/20 [Rx] Past Medical History - Past Health History Medical/Surgical History: Denies Medical/Surgical History HEENT History: Reports: Other (See Below) Other HEENT History: tonsillitis Cardiovascular History: Reports: None Respiratory History: Reports: None Gastrointestinal History: Reports: Chronic Diarrhea, Inflammatory Bowel Disease, Other (See Below) Other Gastrointestinal History: History of Ulcerative Colitis, colectomy 2020 Genitourinary History: Reports: None ORACLE FUSION DEVELOPER History: Reports: Other (See Below) Other ORACLE FUSION DEVELOPER History: Bacterial vaginitis, yeast infection Musculoskeletal History: Reports: None Neurological History: Reports: None Psychiatric History: Reports: ADHD Endocrine/Metabolic History: Reports: None Insulin Pump Model and Communications Associate: N/A Hematologic History: Reports: Anemia, Other (See Below) Other Hematologic History: Blood Transfussions 2018 Immunologic History: Reports: None Oncologic (Cancer) History: Reports: None Dermatologic History: Reports: None - Infectious Disease History Infectious Disease History: Reports: None - Past Surgical History Head Surgeries/Procedures: Reports: None HEENT Surgical History: Reports: None Cardiovascular Surgical History: Reports: None GI Surgical History: Reports: Colonoscopy, Other (See Below) Other GI Surgeries/Procedures: Fecal transplant. Total abdominal colectomy with preservation of the rectum and right lower quadrant ileostomy. Female Surgical History: Reports: None - Past Imaging History Past Imaging History: Reports: CAT Scan Social & Family History - Family History Family Medical History: No Pertinent Family History - Tobacco Use Tobacco Use Status *Q: Never Tobacco User - Caffeine Use Caffeine Use: Reports: None Other Caffeine Use: seldom - Recreational Drug Use Recreational Drug Use: No ED ROS ENT - Review of Systems Review Of Systems: Comprehensive ROS is negative, except as noted in HPI. ED EXAM, ENT - Physical Exam Exam: See Below (See dictation) Course - Vital Signs Last Recorded V/S: Last Vital Signs Temp 97.7 F 07/04/20 16:46 Pulse 110 H 07/04/20 16:46 Resp 16 07/04/20 16:46 BP 121/59 L 07/04/20 16:46 Pulse Ox 98 07/04/20 16:46 - Orders/Labs/Meds Meds: Medications Discontinued Medications Generic Name Dose Route Start Last Admin Trade Name Freq PRN Reason Stop Dose Admin Amoxicillin/Clavulanate Potassium 1 tab 07/04/20 16:49 Amoxicillin/Clavulanate K 875-125 Mg Tab PO 07/04/20 16:50 NOW STA Departure - Departure Time of Disposition: 17:06 Disposition: Home, Self-Care 01 Clinical Impression: Sinusitis, acute Qualifiers: Sinusitis location: maxillary Recurrence: non-recurrent Qualified Code(s): J01.00 - Acute maxillary sinusitis, unspecified - Discharge Information Prescriptions: Amoxicillin/Clavulanate K [Augmentin 875-125 MG] 1 tab PO BID 10 Days #20 tablet Instructions: Sinusitis, Adult, [id number] Referrals: Roddy Allen MD [Primary Care Provider] - Forms: ED Department Discharge Additional Instructions: The following information is given to patients seen in the emergency department who are being discharged to home. This information is to outline your options for follow-up care. We provide all patients seen in our emergency department with a follow-up referral. The need for follow-up, as well as the timing and circumstances, are variable depending upon the specifics of your emergency department visit. If you don't have a primary care physician on staff, we will provide you with a referral. We always advise you to contact your personal physician following an emergency department visit to inform them of the circumstance of the visit and for follow-up with them and/or the need for any referrals to a consulting specialist. The emergency department will also refer you to a specialist when appropriate. This referral assures that you have the opportunity for follow-up care with a specialist. All of these measure are taken in an effort to provide you with optimal care, which includes your follow-up. Under all circumstances we always encourage you to contact your private physician who remains a resource for coordinating your care. When calling for follow-up care, please make the office aware that this follow-up is from your recent emergency room visit. If for any reason you are refused follow-up, please contact the [facility] Emergency Department at and asked to speak to the emergency department charge nurse. [facility] [address] [place] [id number] [facility] [address] [place] [id number] Thank you for choosing the [facility] emergency department in [place] for your medical needs today. It was a pleasure caring for you. Today you were seen in the emergency department for Sinus Pressure and Pain. 1. You were evaluated today on an emergent basis. Take the medication as prescribed. Adequate rest and hydration, warm facial packs, and steam mist humidifiers may be helpful. You can use [id number] products for symptomatic care. 2. You can alternate Tylenol and ibuprofen as needed for pain and fever management. 3. We encourage you to follow up with ENT specialist for re-evaluation and further care/management. 4. If your symptoms should worsen, new symptoms develop or any of the signs and symptoms we discussed should arise please return to the emergency room or call 911 (if needed). Sepsis Event Note (ED) - Evaluation Sepsis Screening Result: No Definite Risk - Focused Exam Vital Signs: Vital Signs Temp Pulse Resp BP Pulse Ox 07/04/20 16:46 97.7 F 110 H 16 121/59 L 98
== END 2020-07-04 17:21 | disposition home or self-care (01) ==
LOC: MW.ED 16:37
DX: J01.00 Acute maxillary sinusitis, unspecified (principal)
CPT/HCPCS: 99283; A9270

== ENCOUNTER 2020-09-23 20:44 | Inpatient (IN) | payer MEDICAID ==
[2020-09-23] MEDS ORDERED: Sodium Chloride 0.9% 2.5 ML Syringe FLUSH PRN (20:58)
[2020-09-23] MEDS ORDERED: Sodium Chloride 0.9% 10 ML Syringe FLUSH PRN (20:58)
[2020-09-23] MEDS ORDERED: Lactated Ringers 1,000 ML IV ONE (21:12)
[2020-09-23] MEDS ORDERED: Morphine 4 MG/ML Syringe IVPUSH ONE ×3 (21:12→23:17)
[2020-09-23] MEDS ORDERED: Ondansetron 4 MG/2 ML SDV IVPUSH ONE ×2 (21:12→23:26)
--- NOTE | 2020-09-23 21:53 | EDM.PDOC ---
ED HPI GENERAL MEDICAL PROBLEM - General Chief Complaint: Abdominal Pain Stated Complaint: ABDOMINAL PAIN Time Seen by Provider: 09/23/20 20:48 Source of Information: Reports: Patient History Limitations: Reports: No Limitations - History of Present Illness INITIAL COMMENTS - FREE TEXT/NARRATIVE: 20-year-old female with history of inflammatory bowel disease status post colectomy, C.difficile, ulcerative colitis, GI bleed, ileostomy, J-pouch performed on 08/19/20 at [facility] in [place] presents with abdominal pain. Abdominal pain has been constant since early August but worsened over the past 3 days, currently rating 9/10, diffuse, nonradiating, constant, no alleviating factors, exacerbated with food intake. Associated with fever, chills, nausea, nonbloody vomiting, loose stools. ROS: A 10-point review of systems, other than pertinent positives and negatives as stated per HPI, is otherwise negative Past medical history: No additional pertinent history Past Surgical history: No additional pertinent history Social history: No additional pertinent history Family history: No additional pertinent history PHYSICAL EXAM General: AOx4, GCS = 15, moderate distress HEENT: dry mucous membrane Neck: supple, no meningismus, no Kernig or Brudzinski Cardiac: S1S2 RRR Respiratory: CTAB, no crackles or rales, no wheezing Abdomen: Soft, diffuse tender, colostomy bag in right abdomen, no rebound or guarding, nondistended, no pulsatile mass. Back: nontender Musculoskeletal: NVI distally, no deformity Neuro: No focal deficits Abdomen Pain Score (Numeric/FACES): 9 - Related Data Allergies Allergy/AdvReac Type Severity Reaction Status Date / Time hydromorphone [From Dilaudid] AdvReac Lethargy Verified 09/23/20 22:36 Home Meds: Home Meds Hydrocodone/Acetaminophen [Hydrocodone-Acetamin 10-325 mg] 1 tab PO BID 09/23/20 [History] Sulfamethoxazole/Trimethoprim [Bactrim 400-80 MG] 1 tab PO ASDIRECTED PRN 09/23/20 [History] Past Medical History - Past Health History Medical/Surgical History: Denies Medical/Surgical History HEENT History: Reports: Other (See Below) Other HEENT History: tonsillitis Cardiovascular History: Reports: None Respiratory History: Reports: None Gastrointestinal History: Reports: Chronic Diarrhea, Inflammatory Bowel Disease, Other (See Below) Other Gastrointestinal History: History of Ulcerative Colitis, colectomy 2019 Genitourinary History: Reports: None ADDING MACHINE SERVICER History: Reports: Other (See Below) Other ADDING MACHINE SERVICER History: Bacterial vaginitis, yeast infection Musculoskeletal History: Reports: None Neurological History: Reports: None Psychiatric History: Reports: ADHD Endocrine/Metabolic History: Reports: None Insulin Pump Model and Profile Stitching Machine Operator: N/A Hematologic History: Reports: Anemia, Other (See Below) Other Hematologic History: Blood Transfussions 2018 Immunologic History: Reports: None Oncologic (Cancer) History: Reports: None Dermatologic History: Reports: None - Infectious Disease History Infectious Disease History: Reports: None - Past Surgical History Head Surgeries/Procedures: Reports: None HEENT Surgical History: Reports: None Cardiovascular Surgical History: Reports: None GI Surgical History: Reports: Colonoscopy, Other (See Below) Other GI Surgeries/Procedures: Fecal transplant. Total abdominal colectomy with preservation of the rectum and right lower quadrant ileostomy. J pouch 08/19/20 [facility] Female Surgical History: Reports: None - Past Imaging History Past Imaging History: Reports: CAT Scan Social & Family History - Family History Family Medical History: No Pertinent Family History - Tobacco Use Tobacco Use Status *Q: Never Tobacco User - Caffeine Use Caffeine Use: Reports: None Other Caffeine Use: seldom - Recreational Drug Use Recreational Drug Use: No ED ROS GENERAL - Review of Systems Review Of Systems: See Below (see dictation) ED EXAM, GENERAL - Physical Exam Exam: See Below (see dictation) Course - Vital Signs Last Recorded V/S: Last Vital Signs Temp 98.0 F 09/23/20 20:58 Pulse 107 H 09/24/20 00:48 Resp 15 09/24/20 00:48 BP 101/60 09/24/20 00:48 Pulse Ox 95 09/24/20 00:48 - Orders/Labs/Meds Orders: Active Orders 24 hr Category Date Time Status Patient Status [ADT] Routine ADT 09/24/20 00:48 Ordered CORONAVIRUS COVID-19 REESE [MOLEC] Stat Lab 09/24/20 00:41 Ordered STOOL CULTURE/SHIGA TOXIN [MREF] Stat Lab 09/23/20 22:23 Ordered Sodium Chloride 0.9% [Saline Flush] Med 09/23/20 20:58 Active 10 ml FLUSH ASDIRECTED PRN Sodium Chloride 0.9% [Saline Flush] Med 09/23/20 20:58 Active 2.5 ml FLUSH ASDIRECTED PRN Saline Lock Insert [OM.PC] Stat Oth 09/23/20 20:58 Ordered Medication Orders Sodium Chloride (Sodium Chloride 0.9% 10 Ml Syringe) 10 ml FLUSH ASDIRECTED PRN PRN Reason: Keep Vein Open Sodium Chloride (Sodium Chloride 0.9% 2.5 Ml Syringe) 2.5 ml FLUSH ASDIRECTED PRN PRN Reason: Keep Vein Open Labs: Laboratory Tests 09/23/20 09/23/20 09/23/20 Range/Units 21:20 21:20 21:27 WBC 10.09 (4.0-11.0) K/uL RBC 4.99 (4.30-5.90) M/uL Hgb 11.4 L (12.0-16.0) g/dL Hct 35.8 L (36.0-46.0) % MCV 71.7 L (80.0-98.0) fL MCH 22.8 L (27.0-32.0) pg MCHC 31.8 (31.0-37.0) g/dL RDW Std Deviation 41.2 (28.0-62.0) fl RDW Coeff of Buck 16 H (11.0-15.0) % Plt Count 515 H (150-400) K/uL MPV 10.10 (7.40-12.00) fL Neut % (Auto) 67.7 (48.0-80.0) % Lymph % (Auto) 21.5 (16.0-40.0) % [place] % (Auto) 9.3 (0.0-15.0) % Eos % (Auto) 1.2 (0.0-7.0) % Baso % (Auto) 0.3 (0.0-1.5) % Neut # (Auto) 6.8 H (1.4-5.7) K/uL Lymph # (Auto) 2.2 (0.6-2.4) K/uL [place] # (Auto) 0.9 H (0.0-0.8) K/uL Eos # (Auto) 0.1 (0.0-0.7) K/uL Baso # (Auto) 0.0 (0.0-0.1) K/uL Nucleated RBC % 0.0 /100WBC Nucleated RBCs # 0 K/uL Sodium 135 L (136-145) mmol/L Potassium 4.0 (3.5-5.1) mmol/L Chloride 99 (98-107) mmol/L Carbon Dioxide 27.3 (21.0-32.0) mmol/L BUN 9 (7.0-18.0) mg/dL Creatinine 0.9 (0.6-1.0) mg/dL Est Cr Clr Drug Dosing TNP Estimated GFR (MDRD) > 60.0 ml/min Glucose 83 (74-106) mg/dL Lactic Acid 1.5 (0.4-2.0) mmol/L Calcium 10.1 (8.5-10.1) mg/dL Total Bilirubin 0.3 (0.2-1.0) mg/dL AST 21 (15-37) IU/L ALT 28 (14-63) IU/L Alkaline Phosphatase 147 H (46-116) U/L Total Protein 9.0 H (6.4-8.2) g/dL Albumin 3.8 (3.4-5.0) g/dL Globulin 5.2 H (2.6-4.0) g/dL Albumin/Globulin Ratio 0.7 L (0.9-1.6) Lipase 109 (73-393) U/L Urine Color Urine Appearance Urine pH (5.0-8.0) Ur Specific [place] (1.001-1.035) Urine Protein (NEGATIVE) mg/dL Urine Glucose (UA) (NEGATIVE) mg/dL Urine Ketones (NEGATIVE) mg/dL Urine Occult Blood (NEGATIVE) Urine Nitrite (NEGATIVE) Urine Bilirubin (NEGATIVE) Urine Urobilinogen (<2.0) EU/dL Ur Leukocyte Esterase (NEGATIVE) Urine RBC (0-2/HPF) Urine WBC (0-5/HPF) Ur Epithelial Cells (NONE-FEW) Urine Bacteria (NEGATIVE) Urine Mucus (NONE-MOD) Urine HCG, Qual (NEGATIVE) 09/23/20 09/23/20 Range/Units 21:30 21:30 WBC (4.0-11.0) K/uL RBC (4.30-5.90) M/uL Hgb (12.0-16.0) g/dL Hct (36.0-46.0) % MCV (80.0-98.0) fL MCH (27.0-32.0) pg MCHC (31.0-37.0) g/dL RDW Std Deviation (28.0-62.0) fl RDW Coeff of Buck (11.0-15.0) % Plt Count (150-400) K/uL MPV (7.40-12.00) fL Neut % (Auto) (48.0-80.0) % Lymph % (Auto) (16.0-40.0) % [place] % (Auto) (0.0-15.0) % Eos % (Auto) (0.0-7.0) % Baso % (Auto) (0.0-1.5) % Neut # (Auto) (1.4-5.7) K/uL Lymph # (Auto) (0.6-2.4) K/uL [place] # (Auto) (0.0-0.8) K/uL Eos # (Auto) (0.0-0.7) K/uL Baso # (Auto) (0.0-0.1) K/uL Nucleated RBC % /100WBC Nucleated RBCs # K/uL Sodium (136-145) mmol/L Potassium (3.5-5.1) mmol/L Chloride (98-107) mmol/L Carbon Dioxide (21.0-32.0) mmol/L BUN (7.0-18.0) mg/dL Creatinine (0.6-1.0) mg/dL Est Cr Clr Drug Dosing Estimated GFR (MDRD) ml/min Glucose (74-106) mg/dL Lactic Acid (0.4-2.0) mmol/L Calcium (8.5-10.1) mg/dL Total Bilirubin (0.2-1.0) mg/dL AST (15-37) IU/L ALT (14-63) IU/L Alkaline Phosphatase (46-116) U/L Total Protein (6.4-8.2) g/dL Albumin (3.4-5.0) g/dL Globulin (2.6-4.0) g/dL Albumin/Globulin Ratio (0.9-1.6) Lipase (73-393) U/L Urine Color YELLOW Urine Appearance CLEAR Urine pH 6.0 (5.0-8.0) Ur Specific [place] 1.010 (1.001-1.035) Urine Protein NEGATIVE (NEGATIVE) mg/dL Urine Glucose (UA) NEGATIVE (NEGATIVE) mg/dL Urine Ketones NEGATIVE (NEGATIVE) mg/dL Urine Occult Blood MODERATE H (NEGATIVE) Urine Nitrite NEGATIVE (NEGATIVE) Urine Bilirubin NEGATIVE (NEGATIVE) Urine Urobilinogen 0.2 (<2.0) EU/dL Ur Leukocyte Esterase NEGATIVE (NEGATIVE) Urine RBC NONE SEEN (0-2/HPF) Urine WBC 0-1 (0-5/HPF) Ur Epithelial Cells OCCASIONAL (NONE-FEW) Urine Bacteria RARE (NEGATIVE) Urine Mucus LIGHT (NONE-MOD) Urine HCG, Qual NEGATIVE (NEGATIVE) Meds: Medications Generic Name Dose Route Start Last Admin Trade Name Freq PRN Reason Stop Dose Admin Sodium Chloride 10 ml 09/23/20 20:58 Sodium Chloride 0.9% 10 Ml Syringe FLUSH ASDIRECTED PRN Keep Vein Open Sodium Chloride 2.5 ml 09/23/20 20:58 Sodium Chloride 0.9% 2.5 Ml Syringe FLUSH ASDIRECTED PRN Keep Vein Open Discontinued Medications Generic Name Dose Route Start Last Admin Trade Name Freq PRN Reason Stop Dose Admin Lactated Ringer's 1,000 mls @ 999 mls/hr 09/23/20 21:12 09/23/20 21:20 Ringers, Lactated IV 09/23/20 22:12 999 mls/hr .BOLUS ONE Administration Pantoprazole Sodium 40 mg/ 20 mls @ 420 mls/hr 09/24/20 00:46 Sodium Chloride IVPUSH 09/24/20 00:48 ONETIME ONE Iopamidol 75 ml 09/23/20 23:14 09/23/20 23:15 Iopamidol 755 Mg/Ml 500 Ml Multipack Bottle IVPUSH 09/23/20 23:15 75 ml ONETIME STA Administration Methylprednisolone Sodium Succinate 125 mg 09/24/20 00:47 Methylprednisolone Sodium Succinate 125 Mg/2 Ml Sdv IVPUSH 09/24/20 00:48 ONETIME ONE Morphine Sulfate 4 mg 09/23/20 21:12 09/23/20 21:23 Morphine 4 Mg/Ml Syringe IVPUSH 09/23/20 21:13 4 mg ONETIME ONE Administration Morphine Sulfate 4 mg 09/23/20 21:54 09/23/20 22:33 Morphine 4 Mg/Ml Syringe IVPUSH 09/23/20 21:55 4 mg ONETIME ONE Administration Morphine Sulfate 4 mg 09/23/20 23:17 09/23/20 23:33 Morphine 4 Mg/Ml Syringe IVPUSH 09/23/20 23:18 4 mg ONETIME ONE Administration Ondansetron HCl 4 mg 09/23/20 21:12 09/23/20 21:22 Ondansetron 4 Mg/2 Ml Sdv IVPUSH 09/23/20 21:13 4 mg ONETIME ONE Administration Ondansetron HCl 4 mg 09/23/20 23:17 09/23/20 23:26 Ondansetron 4 Mg Tab.Dis PO 09/23/20 23:18 Not Given ONETIME ONE Ondansetron HCl 4 mg 09/23/20 23:26 09/23/20 23:32 Ondansetron 4 Mg/2 Ml Sdv IVPUSH 09/23/20 23:27 4 mg ONETIME ONE Administration - Re-Assessments/Exams Free Text/Narrative Re-Assessment/Exam: 09/23/20 21:53 Tachycardia resolved after 1 L IV fluids, pain improved only slightly from 9 to 8/10 after 4mg IV morphine. Will redose morphine 4 mg. 09/24/20 00:49 Pain is still unchanged despite 3 doses of 4 mg morphine. Will admit for intractable pain. Will give 125 mg IV Solu-Medrol and 40 mg of Protonix. Case discussed with Dr. Madrigal, who agrees to admit patient. The hospitalist's documentation supersedes all other documentation on this patient with regard to any conflicts or discrepancies from this point forward. Any emergency conditions have been treated to the ability of the ED prior to admission. Departure - Departure Time of Disposition: 00:50 Disposition: Refer to Observation Condition: Fair Clinical Impression: Colitis, Intractable pain Ulcerative colitis Qualifiers: Ulcerative colitis location: ulcerative pancolitis Digestive disease complication type: with rectal bleeding Qualified Code(s): K51.011 - Ulcerative (chronic) pancolitis with rectal bleeding Abdominal pain Qualifiers: Abdominal location: generalized Qualified Code(s): R10.84 - Generalized abdominal pain - Discharge Information *PRESCRIPTION DRUG MONITORING PROGRAM REVIEWED*: Not Applicable *COPY OF PRESCRIPTION DRUG MONITORING REPORT IN PATIENT MEJIA: Not Applicable Referrals: Roddy Allen MD [Primary Care Provider] - Forms: ED Department Discharge Sepsis Event Note (ED) - Evaluation Sepsis Screening Result: No Definite Risk - Focused Exam Vital Signs: Vital Signs Temp Temp Pulse Resp BP Pulse Ox 09/24/20 00:48 107 H 15 101/60 95 09/23/20 20:58 99.5 F 98.0 F 123 H 16 110/75 100 - My Orders Last 24 Hours: My Active Orders 09/23/20 20:58 Sodium Chloride 0.9% [Saline Flush] 10 ml FLUSH ASDIRECTED PRN Sodium Chloride 0.9% [Saline Flush] 2.5 ml FLUSH ASDIRECTED PRN Saline Lock Insert [OM.PC] Stat 09/23/20 22:23 STOOL CULTURE/SHIGA TOXIN [MREF] Stat 09/24/20 00:41 CORONAVIRUS COVID-19 REESE [MOLEC] Stat 09/24/20 00:48 Patient Status [ADT] Routine - Assessment/Plan Last 24 Hours: My Active Orders 09/23/20 20:58 Sodium Chloride 0.9% [Saline Flush] 10 ml FLUSH ASDIRECTED PRN Sodium Chloride 0.9% [Saline Flush] 2.5 ml FLUSH ASDIRECTED PRN Saline Lock Insert [OM.PC] Stat 09/23/20 22:23 STOOL CULTURE/SHIGA TOXIN [MREF] Stat 09/24/20 00:41 CORONAVIRUS COVID-19 REESE [MOLEC] Stat 09/24/20 00:48 Patient Status [ADT] Routine
[2020-09-23 22:12] LABS: BLOOD UREA NITROGEN,BUN 9 mg/dL (7.0-18.0); CARBON DIOXIDE,CO2 27.3 mmol/L (21.0-32.0); CHLORIDE,CL 99 mmol/L (98-107); GLUCOSE RANDOM 83 mg/dL (74-106); LIPASE 109 U/L (73-393); SODIUM,NA 135 mmol/L (136-145)
[2020-09-23] MEDS ORDERED: Iopamidol 755 MG/ML 500 ML Multipack Bottle IVPUSH STA (23:14)
[2020-09-23] MEDS ORDERED: Ondansetron 4 MG Tab.DIS PO ONE (23:17)
--- NOTE | 2020-09-24 00:20 | CT ---
INDICATION: Abdominal pain TECHNIQUE: Axial images were obtained from the diaphragm to the pubic symphysis. Reformats were obtained in the coronal and sagittal plane. IV Contrast: 75 cc Isovue 370 Oral Contrast: None COMPARISON: Abdomen and pelvis CT 04/24/2020 FINDINGS: Lower chest: Unremarkable. Liver: Unremarkable. Normal in size and attenuation. No masses. Gallbladder and bile ducts: Unremarkable. No stones or inflammation. No biliary dilatation. Spleen: Unremarkable. Normal in size without mass. Pancreas: Unremarkable. No mass or inflammation. Adrenal glands: Unremarkable. No nodules. Kidneys: Symmetric enhancement with nonobstructing nephrolithiasis Vasculature: Unremarkable. GI tract: The stomach is unremarkable. Small bowel decompressed. Right lower quadrant colostomy. A suture line is present in the rectum with an air-fluid level within the rectum and rectal wall thickening and adjacent fat stranding. No discrete abscess. Pelvis: Bladder is mildly distended. The uterus is anteverted no discrete adnexal mass. Bones: Unremarkable for age. IMPRESSION: Status post right lower quadrant colostomy with rectal suture line. Prominent wall thickening and inflammation surrounding the rectosigmoid consistent with a colitis/proctitis. Adjacent free fluid without drainable abscess. Please note that all CT scans at this facility use dose modulation, iterative reconstruction, and/or weight-based dosing when appropriate to reduce radiation dose to as low as reasonably achievable. Dictated by Kamar Gold MD @ 09/24/2020 12:18:[address] Kamar Gold @ Sep 24 2020 12:18AM
[2020-09-24] MEDS ORDERED: Pantoprazole 40 MG in Sodium Chloride 0.9% 20 ML IVPUSH ONE (00:46)
[2020-09-24] MEDS ORDERED: methylPREDNISolone Sodium Succinate 125 MG/2 ML SDV IVPUSH ONE (00:47)
[2020-09-24] MEDS ORDERED: Albuterol/Ipratropium 3.0-0.5 MG/3 ML Neb Soln NEB PRN (01:33)
[2020-09-24] MEDS: Lactated Ringers 1,000 ML IV SCH ×3 (02:33→16:26)
[2020-09-24] MEDS: Morphine 2 MG/ML SYRINGE IVPUSH PRN ×3 (02:46→09:26)
[2020-09-24 06:32] LABS: BLOOD UREA NITROGEN,BUN 7 mg/dL (7.0-18.0); CARBON DIOXIDE,CO2 24.8 mmol/L (21.0-32.0); CHLORIDE,CL 102 mmol/L (98-107); GLUCOSE RANDOM 116 mg/dL (74-106); POTASSIUM,K 4.2 mmol/L (3.5-5.1); SODIUM,NA 138 mmol/L (136-145)
[2020-09-24] MEDS ORDERED: Pantoprazole 40 MG Vial IV SCH (09:00)
[2020-09-24] MEDS: methylPREDNISolone Sodium Succinate 40 MG/1 ML SDV IVPUSH SCH ×2 (09:25→16:25)
[2020-09-24] MEDS: HYDROmorphone 1 MG/ML Syringe IVPUSH PRN ×2 (13:01→20:18)
--- NOTE | 2020-09-24 13:58 | PCM.HP.2 ---
H&P History of Present Illness - General Date of Service: 09/24/20 Admit Problem/Dx: Admission Diagnosis/Problem Admission Diagnosis/Problem Colitis - History of Present Illness Initial Comments - Free Text/Narative: 19-year-old female with a history of IBD s/p colectomy (with preservation of rectum), colostomy bag, who presents today for diffuse abdominal pain. Patient states that she got her procedure done at [facility] in August 2019 and has been doing well. She was supposed to get her reversal done in January 2020 but couldn't get it done due to insurance lapse. Patient states that over last few days she has been having increasing pain, and some nausea. Patient denies havin g any overt diarrhea, bloody stools. States that she has some off-and-on discharge from her rectum which looks like applesauce and has had it since after the surgery. CT scan was performed in the ER which showed s/p right lower quadrant colostomy with rectal suture line, prominent wall thickening and inflammation surrounding the rectosigmoid consistent with a colitis/proctitis. Adjacent free fluid without drainable abscess noted, patient was admitted for further management. Abdomen Pain Score (Numeric/FACES): 8 - Related Data Allergies/Adverse Reactions: Allergies Allergy/AdvReac Type Severity Reaction Status Date / Time hydromorphone [From Dilaudid] AdvReac Mild Lethargy Verified 09/24/20 11:37 Home Medications: Home Meds Hydrocodone/Acetaminophen [Hydrocodone-Acetamin 10-325 mg] 1 tab PO TID PRN 09/23/20 [History] Sulfamethoxazole/Trimethoprim [Bactrim 400-80 MG] 1 tab PO BID 09/23/20 [History] Past Medical History - Past Health History Medical/Surgical History: Denies Medical/Surgical History HEENT History: Reports: Other (See Below) Other HEENT History: tonsillitis Cardiovascular History: Reports: None Respiratory History: Reports: None Gastrointestinal History: Reports: Chronic Diarrhea, Inflammatory Bowel Disease, Other (See Below) Other Gastrointestinal History: History of Ulcerative Colitis, colectomy 2019 Genitourinary History: Reports: None 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 (See Below) Other OB/BYN History: Bacterial vaginitis, yeast infection Musculoskeletal History: Reports: None Neurological History: Reports: None Psychiatric History: Reports: ADHD Endocrine/Metabolic History: Reports: None Insulin Pump Model and Graduate Assistant: N/A Hematologic History: Reports: Anemia, Other (See Below) Other Hematologic History: Blood Transfussions 2018 Immunologic History: Reports: None Oncologic (Cancer) History: Reports: None Dermatologic History: Reports: None - Infectious Disease History Infectious Disease History: Reports: None - Past Surgical History Head Surgeries/Procedures: Reports: None HEENT Surgical History: Reports: None Cardiovascular Surgical History: Reports: None GI Surgical History: Reports: Colonoscopy, Other (See Below) Other GI Surgeries/Procedures: Fecal transplant. Total abdominal colectomy with preservation of the rectum and right lower quadrant ileostomy. J pouch 08/19/20 [facility] Female Surgical History: Reports: None - Past Imaging History Past Imaging History: Reports: CAT Scan Social & Family History - Family History Family Medical History: No Pertinent Family History - Tobacco Use Tobacco Use Status *Q: Never Tobacco User Second Hand Smoke Exposure: No - Caffeine Use Caffeine Use: Reports: None Other Caffeine Use: seldom - Recreational Drug Use Recreational Drug Use: No H&P Review of Systems - Review of Systems: Review Of Systems: See Below General: Reports: Malaise, Weakness. Denies: Fever, Chills Pulmonary: Denies: Shortness of Breath, Wheezing Cardiovascular: Denies: Chest Pain, Palpitations Gastrointestinal: Reports: Abdominal Pain, Anorexia, Decreased Appetite, Nausea. Denies: Black Stool, Bloody Stool, Constipation, Diarrhea, Difficulty Swallowing, Distension, Flatus, Hematemesis, Hematochezia, Melena, Mucous in Stool, Stool Incontinence, Vomiting Genitourinary: Denies: Dysuria, Frequency, Burning Musculoskeletal: Denies: Neck Pain, Shoulder Pain, Arm Pain Skin: Denies: Cyanosis, Jaundice, Mottled, Pallor Psychiatric: Denies: Confusion, Depression, Mood Lability Neurological: Denies: Confusion, Dizziness, Headache, Numbness Hematologic/Lymphatic: Denies: Anemia, Easy Bleeding, Easy Bruising, Swollen Glands Exam - Exam Exam: See Below - Vital Signs Vital Signs: Last Vital Signs Temp 35.8 C L 09/24/20 13:03 Pulse 61 09/24/20 13:03 Resp 14 09/24/20 13:03 BP 105/60 09/24/20 13:03 Pulse Ox 100 09/24/20 13:03 Weight: 52.254 kg - Exam General: Alert, Oriented Neck: Supple Lungs: Clear to Auscultation, Normal Respiratory Effort Cardiovascular: Regular Rate, Regular Rhythm GI/Abdominal Exam: Normal Bowel Sounds, Soft, Tender. No: Distended, Guarding, Abnormal Bowel Sounds - Patient Data Lab Results Last 24 hrs: Laboratory Results - last 24 hr 09/23/20 09/23/20 09/23/20 Range/Units 21:20 21:20 21:27 WBC 10.09 (4.0-11.0) K/uL RBC 4.99 (4.30-5.90) M/uL Hgb 11.4 L (12.0-16.0) g/dL Hct 35.8 L (36.0-46.0) % MCV 71.7 L (80.0-98.0) fL MCH 22.8 L (27.0-32.0) pg MCHC 31.8 (31.0-37.0) g/dL RDW Std Deviation 41.2 (28.0-62.0) fl RDW Coeff of Buck 16 H (11.0-15.0) % Plt Count 515 H (150-400) K/uL MPV 10.10 (7.40-12.00) fL Neut % (Auto) 67.7 (48.0-80.0) % Lymph % (Auto) 21.5 (16.0-40.0) % [place] % (Auto) 9.3 (0.0-15.0) % Eos % (Auto) 1.2 (0.0-7.0) % Baso % (Auto) 0.3 (0.0-1.5) % Neut # (Auto) 6.8 H (1.4-5.7) K/uL Lymph # (Auto) 2.2 (0.6-2.4) K/uL [place] # (Auto) 0.9 H (0.0-0.8) K/uL Eos # (Auto) 0.1 (0.0-0.7) K/uL Baso # (Auto) 0.0 (0.0-0.1) K/uL Nucleated RBC % 0.0 /100WBC Nucleated RBCs # 0 K/uL Sodium 135 L (136-145) mmol/L Potassium 4.0 (3.5-5.1) mmol/L Chloride 99 (98-107) mmol/L Carbon Dioxide 27.3 (21.0-32.0) mmol/L BUN 9 (7.0-18.0) mg/dL Creatinine 0.9 (0.6-1.0) mg/dL Est Cr Clr Drug Dosing TNP Estimated GFR (MDRD) > 60.0 ml/min Glucose 83 (74-106) mg/dL POC Glucose (70-99) mg/dL Lactic Acid 1.5 (0.4-2.0) mmol/L Calcium 10.1 (8.5-10.1) mg/dL Phosphorus (2.6-4.7) mg/dL Magnesium (1.8-2.4) mg/dL Total Bilirubin 0.3 (0.2-1.0) mg/dL AST 21 (15-37) IU/L ALT 28 (14-63) IU/L Alkaline Phosphatase 147 H (46-116) U/L Total Protein 9.0 H (6.4-8.2) g/dL Albumin 3.8 (3.4-5.0) g/dL Globulin 5.2 H (2.6-4.0) g/dL Albumin/Globulin Ratio 0.7 L (0.9-1.6) Lipase 109 (73-393) U/L Urine Color Urine Appearance Urine pH (5.0-8.0) Ur Specific [place] (1.001-1.035) Urine Protein (NEGATIVE) mg/dL Urine Glucose (UA) (NEGATIVE) mg/dL Urine Ketones (NEGATIVE) mg/dL Urine Occult Blood (NEGATIVE) Urine Nitrite (NEGATIVE) Urine Bilirubin (NEGATIVE) Urine Urobilinogen (<2.0) EU/dL Ur Leukocyte Esterase (NEGATIVE) Urine RBC (0-2/HPF) Urine WBC (0-5/HPF) Ur Epithelial Cells (NONE-FEW) Urine Bacteria (NEGATIVE) Urine Mucus (NONE-MOD) Urine HCG, Qual (NEGATIVE) SARS-CoV-2 RNA (REESE) (NEGATIVE) 09/23/20 09/23/20 09/24/20 Range/Units 21:30 21:30 00:46 WBC (4.0-11.0) K/uL RBC (4.30-5.90) M/uL Hgb (12.0-16.0) g/dL Hct (36.0-46.0) % MCV (80.0-98.0) fL MCH (27.0-32.0) pg MCHC (31.0-37.0) g/dL RDW Std Deviation (28.0-62.0) fl RDW Coeff of Buck (11.0-15.0) % Plt Count (150-400) K/uL MPV (7.40-12.00) fL Neut % (Auto) (48.0-80.0) % Lymph % (Auto) (16.0-40.0) % [place] % (Auto) (0.0-15.0) % Eos % (Auto) (0.0-7.0) % Baso % (Auto) (0.0-1.5) % Neut # (Auto) (1.4-5.7) K/uL Lymph # (Auto) (0.6-2.4) K/uL [place] # (Auto) (0.0-0.8) K/uL Eos # (Auto) (0.0-0.7) K/uL Baso # (Auto) (0.0-0.1) K/uL Nucleated RBC % /100WBC Nucleated RBCs # K/uL Sodium (136-145) mmol/L Potassium (3.5-5.1) mmol/L Chloride (98-107) mmol/L Carbon Dioxide (21.0-32.0) mmol/L BUN (7.0-18.0) mg/dL Creatinine (0.6-1.0) mg/dL Est Cr Clr Drug Dosing Estimated GFR (MDRD) ml/min Glucose (74-106) mg/dL POC Glucose (70-99) mg/dL Lactic Acid (0.4-2.0) mmol/L Calcium (8.5-10.1) mg/dL Phosphorus (2.6-4.7) mg/dL Magnesium (1.8-2.4) mg/dL Total Bilirubin (0.2-1.0) mg/dL AST (15-37) IU/L ALT (14-63) IU/L Alkaline Phosphatase (46-116) U/L Total Protein (6.4-8.2) g/dL Albumin (3.4-5.0) g/dL Globulin (2.6-4.0) g/dL Albumin/Globulin Ratio (0.9-1.6) Lipase (73-393) U/L Urine Color YELLOW Urine Appearance CLEAR Urine pH 6.0 (5.0-8.0) Ur Specific [place] 1.010 (1.001-1.035) Urine Protein NEGATIVE (NEGATIVE) mg/dL Urine Glucose (UA) NEGATIVE (NEGATIVE) mg/dL Urine Ketones NEGATIVE (NEGATIVE) mg/dL Urine Occult Blood MODERATE H (NEGATIVE) Urine Nitrite NEGATIVE (NEGATIVE) Urine Bilirubin NEGATIVE (NEGATIVE) Urine Urobilinogen 0.2 (<2.0) EU/dL Ur Leukocyte Esterase NEGATIVE (NEGATIVE) Urine RBC NONE SEEN (0-2/HPF) Urine WBC 0-1 (0-5/HPF) Ur Epithelial Cells OCCASIONAL (NONE-FEW) Urine Bacteria RARE (NEGATIVE) Urine Mucus LIGHT (NONE-MOD) Urine HCG, Qual NEGATIVE (NEGATIVE) SARS-CoV-2 RNA (REESE) NEGATIVE (NEGATIVE) 09/24/20 09/24/20 09/24/20 Range/Units 05:48 05:48 09:01 WBC 9.30 (4.0-11.0) K/uL RBC 4.26 L (4.30-5.90) M/uL Hgb 9.6 L (12.0-16.0) g/dL Hct 30.7 L (36.0-46.0) % MCV 72.1 L (80.0-98.0) fL MCH 22.5 L (27.0-32.0) pg MCHC 31.3 (31.0-37.0) g/dL RDW Std Deviation 40.9 (28.0-62.0) fl RDW Coeff of Buck 16 H (11.0-15.0) % Plt Count 414 H (150-400) K/uL MPV 10.70 (7.40-12.00) fL Neut % (Auto) 93.1 H (48.0-80.0) % Lymph % (Auto) 5.9 L (16.0-40.0) % [place] % (Auto) 0.9 (0.0-15.0) % Eos % (Auto) 0.0 (0.0-7.0) % Baso % (Auto) 0.1 (0.0-1.5) % Neut # (Auto) 8.7 H (1.4-5.7) K/uL Lymph # (Auto) 0.6 (0.6-2.4) K/uL [place] # (Auto) 0.1 (0.0-0.8) K/uL Eos # (Auto) 0.0 (0.0-0.7) K/uL Baso # (Auto) 0.0 (0.0-0.1) K/uL Nucleated RBC % 0.0 /100WBC Nucleated RBCs # 0 K/uL Sodium 138 (136-145) mmol/L Potassium 4.2 (3.5-5.1) mmol/L Chloride 102 (98-107) mmol/L Carbon Dioxide 24.8 (21.0-32.0) mmol/L BUN 7 (7.0-18.0) mg/dL Creatinine 0.8 (0.6-1.0) mg/dL Est Cr Clr Drug Dosing 90.99 Estimated GFR (MDRD) > 60.0 ml/min Glucose 116 H (74-106) mg/dL POC Glucose 129 H (70-99) mg/dL Lactic Acid (0.4-2.0) mmol/L Calcium 9.2 (8.5-10.1) mg/dL Phosphorus 4.4 (2.6-4.7) mg/dL Magnesium 1.7 L (1.8-2.4) mg/dL Total Bilirubin (0.2-1.0) mg/dL AST (15-37) IU/L ALT (14-63) IU/L Alkaline Phosphatase (46-116) U/L Total Protein (6.4-8.2) g/dL Albumin (3.4-5.0) g/dL Globulin (2.6-4.0) g/dL Albumin/Globulin Ratio (0.9-1.6) Lipase (73-393) U/L Urine Color Urine Appearance Urine pH (5.0-8.0) Ur Specific [place] (1.001-1.035) Urine Protein (NEGATIVE) mg/dL Urine Glucose (UA) (NEGATIVE) mg/dL Urine Ketones (NEGATIVE) mg/dL Urine Occult Blood (NEGATIVE) Urine Nitrite (NEGATIVE) Urine Bilirubin (NEGATIVE) Urine Urobilinogen (<2.0) EU/dL Ur Leukocyte Esterase (NEGATIVE) Urine RBC (0-2/HPF) Urine WBC (0-5/HPF) Ur Epithelial Cells (NONE-FEW) Urine Bacteria (NEGATIVE) Urine Mucus (NONE-MOD) Urine HCG, Qual (NEGATIVE) SARS-CoV-2 RNA (REESE) (NEGATIVE) Result Diagrams: 09/24/20 05:48 09/24/20 05:48 Rohit Results Last 24 hrs: Microbiology 09/23/20 21:30 C. difficile Antigen & Toxins A,B - Final Stool / Feces Sepsis Event Note - Evaluation Sepsis Screening Result: No Definite Risk - Focused Exam Vital Signs: Vital Signs Temp Pulse Resp BP BP Pulse Ox 09/24/20 13:03 35.8 C L 61 14 105/60 100 09/24/20 08:56 36.4 C 54 L 14 100/59 L 99 09/24/20 02:00 36.8 C 96 18 116/69 98 Problem List Initiated/Reviewed/Updated: Yes Orders Last 24hrs: Active Orders 24 hr Category Date Time Status Patient Status [ADT] Routine ADT 09/24/20 00:48 Active Ambulate [RC] ASDIRECTED Care 09/24/20 01:33 Active Antiembolic Devices [RC] PER UNIT ROUTINE Care 09/24/20 01:37 Active Blood Glucose Check, Bedside [RC] Q6H Care 09/24/20 01:33 Active Oxygen Therapy [RC] PRN Care 09/24/20 01:36 Active RT Aerosol Therapy [RC] ASDIRECTED Care 09/24/20 01:38 Active VTE/DVT Education [RC] PER UNIT ROUTINE Care 09/24/20 01:36 Active Vital Signs [RC] Q4H Care 09/24/20 01:36 Active Nothing per Oral Now Diet [DIET] Diet 09/24/20 Breakfast Active STOOL CULTURE/SHIGA TOXIN [MREF] Stat Lab 09/23/20 22:23 Ordered Albuterol/Ipratropium [DuoNeb 3.0-0.5 MG/3 ML] Med 09/24/20 01:33 Active 3 ml NEB Q4HRRT PRN HYDROmorphone [Dilaudid] Med 09/24/20 11:10 Active 0.5 mg IVPUSH Q3H PRN Lactated Ringers [Ringers, Lactated] 1,000 ml Med 09/24/20 01:45 Active IV ASDIRECTED Ondansetron [Zofran] Med 09/24/20 01:33 Active 4 mg IVPUSH Q4H PRN Pantoprazole [ProTONIX IV] 40 mg Med 09/24/20 21:00 Active Sodium Chloride 0.9% [Normal Saline] 10 ml IV Q24H Sodium Chloride 0.9% [Saline Flush] Med 09/23/20 20:58 Active 10 ml FLUSH ASDIRECTED PRN Sodium Chloride 0.9% [Saline Flush] Med 09/23/20 20:58 Active 2.5 ml FLUSH ASDIRECTED PRN methylPREDNISolone Sod Succ [Solu-MEDROL] Med 09/24/20 09:00 Active 40 mg IVPUSH Q8H Saline Lock Insert [OM.PC] Stat Oth 09/23/20 20:58 Ordered Sequential Compression Device [OM.PC] Per Unit Routine Oth 09/24/20 01:36 Ordered Resuscitation Status Routine Resus Stat 09/24/20 01:33 Ordered Medication Orders Albuterol/Ipratropium (Albuterol/Ipratropium 3.0-0.5 Mg/3 Ml Neb Soln) 3 ml NEB Q4HRRT PRN PRN Reason: Shortness Of Breath/wheezing Hydromorphone HCl (Hydromorphone 1 Mg/Ml Syringe) 0.5 mg IVPUSH Q3H PRN PRN Reason: Pain Last Admin: 09/24/20 13:01 Dose: 0.5 mg Documented by: GARRISON Lactated Ringer's (Ringers, Lactated) 1,000 mls @ 125 mls/hr IV ASDIRECTED DONNIE Last Admin: 09/24/20 09:25 Dose: 125 mls/hr Documented by: Infusion: 09/24/20 09:25 Dose: 125 mls/hr Documented by: Admin: 09/24/20 02:33 Dose: 125 mls/hr Documented by: LETA Pantoprazole Sodium 40 mg/ (Sodium Chloride) 10 mls @ 300 mls/hr IV Q24H DONNIE Methylprednisolone Sodium Succinate (Methylprednisolone Sodium Succinate 40 Mg/1 Ml Sdv) 40 mg IVPUSH Q8H DONNIE Last Admin: 09/24/20 09:25 Dose: 40 mg Documented by: CARLSAR Ondansetron HCl (Ondansetron 4 Mg/2 Ml Sdv) 4 mg IVPUSH Q4H PRN PRN Reason: Nausea/Vomiting Sodium Chloride (Sodium Chloride 0.9% 10 Ml Syringe) 10 ml FLUSH ASDIRECTED PRN PRN Reason: Keep Vein Open Sodium Chloride (Sodium Chloride 0.9% 2.5 Ml Syringe) 2.5 ml FLUSH ASDIRECTED PRN PRN Reason: Keep Vein Open Assessment/Plan Comment:: 20-year-old female admitted for colitis/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 difficile is negative, no white count, no fever I do not suspect infectious source right now, will hold off on antibiotics unless patient's clinical status deteriorates N.p.o. except ice chips for now IV Dilaudid 0.5 mg every 3 hours as needed for pain IV Zofran as needed for nausea vomiting Continue IV fluid hydration patient is able to tolerate oral diet Continue supportive care Monitor and replete electrolytes as necessary If clinical symptoms do not improve the next 24 to 48 hours will reach out to patient's surgical team at [place].
[2020-09-24] MEDS: Pantoprazole 40 MG in Sodium Chloride 0.9% 10 ML IV SCH (20:22)
[2020-09-25] MEDS: HYDROmorphone 1 MG/ML Syringe IVPUSH PRN ×3 (00:59→13:53)
[2020-09-25] MEDS: methylPREDNISolone Sodium Succinate 40 MG/1 ML SDV IVPUSH SCH ×3 (01:02→17:15)
[2020-09-25] MEDS: Lactated Ringers 1,000 ML IV SCH ×3 (01:05→17:20)
[2020-09-25 08:59] LABS: BLOOD UREA NITROGEN,BUN 9 mg/dL (7.0-18.0); CARBON DIOXIDE,CO2 27.8 mmol/L (21.0-32.0); CHLORIDE,CL 102 mmol/L (98-107); GLUCOSE RANDOM 108 mg/dL (74-106); POTASSIUM,K 4.2 mmol/L (3.5-5.1); SODIUM,NA 140 mmol/L (136-145)
[2020-09-25] MEDS ORDERED: Magnesium Sulfate/Water 2 GM in Premix Bag 1 BAG IV ONE (09:12)
--- NOTE | 2020-09-25 12:25 | PCM.PN ---
- General Info Date of Service: 09/25/20 Admission Dx/Problem (Free Text): Admission Diagnosis/Problem Admission Diagnosis/Problem Colitis Functional Status: Reports: Tolerating Diet, Ambulating, Urinating - Review of Systems General: Denies: Fever, Weakness, Fatigue Pulmonary: Denies: Shortness of Breath, Pleuritic Chest Pain Gastrointestinal: Reports: Abdominal Pain. Denies: Decreased Appetite, Diarrhea, Difficulty Swallowing, Nausea, Vomiting Genitourinary: Denies: Dysuria, Frequency, Burning Musculoskeletal: Denies: Neck Pain, Shoulder Pain, Arm Pain Skin: Denies: Cyanosis, Jaundice, Mottled Neurological: Denies: Confusion, Dizziness, Headache - Patient Data Vitals - Most Recent: Last Vital Signs Temp 36.6 C 09/25/20 08:00 Pulse 71 09/25/20 08:00 Resp 16 09/25/20 08:00 BP 101/59 L 09/25/20 08:00 Pulse Ox 100 09/25/20 08:00 Weight - Most Recent: 52.254 kg I&O - Last 24 Hours: Intake & Output 09/24/20 09/25/20 09/25/20 22:59 06:59 14:59 Intake Total 1736 1490 Output Total 805 1200 Balance 931 290 Lab Results Last 24 Hours: Laboratory Results - last 24 hr 09/24/20 09/24/20 09/25/20 Range/Units 14:51 20:34 02:46 WBC (4.0-11.0) K/uL RBC (4.30-5.90) M/uL Hgb (12.0-16.0) g/dL Hct (36.0-46.0) % MCV (80.0-98.0) fL MCH (27.0-32.0) pg MCHC (31.0-37.0) g/dL RDW Std Deviation (28.0-62.0) fl RDW Coeff of Buck (11.0-15.0) % Plt Count (150-400) K/uL MPV (7.40-12.00) fL Neut % (Auto) (48.0-80.0) % Lymph % (Auto) (16.0-40.0) % [place] % (Auto) (0.0-15.0) % Eos % (Auto) (0.0-7.0) % Baso % (Auto) (0.0-1.5) % Neut # (Auto) (1.4-5.7) K/uL Lymph # (Auto) (0.6-2.4) K/uL [place] # (Auto) (0.0-0.8) K/uL Eos # (Auto) (0.0-0.7) K/uL Baso # (Auto) (0.0-0.1) K/uL Nucleated RBC % /100WBC Nucleated RBCs # K/uL Sodium (136-145) mmol/L Potassium (3.5-5.1) mmol/L Chloride (98-107) mmol/L Carbon Dioxide (21.0-32.0) mmol/L BUN (7.0-18.0) mg/dL Creatinine (0.6-1.0) mg/dL Est Cr Clr Drug Dosing mL/min Estimated GFR (MDRD) ml/min Glucose (74-106) mg/dL POC Glucose 115 H 95 109 H (70-99) mg/dL Calcium (8.5-10.1) mg/dL Phosphorus (2.6-4.7) mg/dL Magnesium (1.8-2.4) mg/dL 09/25/20 09/25/20 09/25/20 Range/Units 08:20 08:20 10:18 WBC 9.30 (4.0-11.0) K/uL RBC 4.34 (4.30-5.90) M/uL Hgb 9.7 L (12.0-16.0) g/dL Hct 30.9 L (36.0-46.0) % MCV 71.2 L (80.0-98.0) fL MCH 22.4 L (27.0-32.0) pg MCHC 31.4 (31.0-37.0) g/dL RDW Std Deviation 40.7 (28.0-62.0) fl RDW Coeff of Buck 16 H (11.0-15.0) % Plt Count 436 H (150-400) K/uL MPV 10.50 (7.40-12.00) fL Neut % (Auto) 78.0 (48.0-80.0) % Lymph % (Auto) 12.4 L (16.0-40.0) % [place] % (Auto) 9.5 (0.0-15.0) % Eos % (Auto) 0.0 (0.0-7.0) % Baso % (Auto) 0.1 (0.0-1.5) % Neut # (Auto) 7.3 H (1.4-5.7) K/uL Lymph # (Auto) 1.2 (0.6-2.4) K/uL [place] # (Auto) 0.9 H (0.0-0.8) K/uL Eos # (Auto) 0.0 (0.0-0.7) K/uL Baso # (Auto) 0.0 (0.0-0.1) K/uL Nucleated RBC % 0.0 /100WBC Nucleated RBCs # 0 K/uL Sodium 140 (136-145) mmol/L Potassium 4.2 (3.5-5.1) mmol/L Chloride 102 (98-107) mmol/L Carbon Dioxide 27.8 (21.0-32.0) mmol/L BUN 9 (7.0-18.0) mg/dL Creatinine 0.7 (0.6-1.0) mg/dL Est Cr Clr Drug Dosing 103.99 mL/min Estimated GFR (MDRD) > 60.0 ml/min Glucose 108 H (74-106) mg/dL POC Glucose 114 H (70-99) mg/dL Calcium 9.2 (8.5-10.1) mg/dL Phosphorus 4.1 (2.6-4.7) mg/dL Magnesium 1.6 L (1.8-2.4) mg/dL Med Orders - Current: Current Medications Albuterol/Ipratropium (Albuterol/Ipratropium 3.0-0.5 Mg/3 Ml Neb Soln) 3 ml NEB Q4HRRT PRN PRN Reason: Shortness Of Breath/wheezing Hydromorphone HCl (Hydromorphone 1 Mg/Ml Syringe) 0.5 mg IVPUSH Q3H PRN PRN Reason: Pain Last Admin: 09/25/20 08:09 Dose: 0.5 mg Documented by: Lactated Ringer's (Ringers, Lactated) 1,000 mls @ 125 mls/hr IV ASDIRECTED DONNIE Last Admin: 09/25/20 08:48 Dose: 125 mls/hr Documented by: Pantoprazole Sodium 40 mg/ (Sodium Chloride) 10 mls @ 300 mls/hr IV Q24H [facility] Last Admin: 09/24/20 20:22 Dose: 300 mls/hr Documented by: Methylprednisolone Sodium Succinate (Methylprednisolone Sodium Succinate 40 Mg/1 Ml Sdv) 40 mg IVPUSH Q8H [facility] Last Admin: 09/25/20 08:10 Dose: 40 mg Documented by: Ondansetron HCl (Ondansetron 4 Mg/2 Ml Sdv) 4 mg IVPUSH Q4H PRN PRN Reason: Nausea/Vomiting Sodium Chloride (Sodium Chloride 0.9% 10 Ml Syringe) 10 ml FLUSH ASDIRECTED PRN PRN Reason: Keep Vein Open Sodium Chloride (Sodium Chloride 0.9% 2.5 Ml Syringe) 2.5 ml FLUSH ASDIRECTED PRN PRN Reason: Keep Vein Open Discontinued Medications Lactated Ringer's (Ringers, Lactated) 1,000 mls @ 999 mls/hr IV .BOLUS ONE Stop: 09/23/20 22:12 Last Admin: 09/23/20 21:20 Dose: 999 mls/hr Documented by: Pantoprazole Sodium 40 mg/ (Sodium Chloride) 20 mls @ 420 mls/hr IVPUSH ONETIME ONE Stop: 09/24/20 00:48 Last Admin: 09/24/20 01:25 Dose: 420 mls/hr Documented by: Magnesium Sulfate 2 gm/ Premix 50 mls @ 50 mls/hr IV ONETIME ONE Stop: 09/25/20 10:11 Last Admin: 09/25/20 10:20 Dose: 50 mls/hr Documented by: Iopamidol (Iopamidol 755 Mg/Ml 500 Ml Multipack Bottle) 75 ml IVPUSH ONETIME STA Stop: 09/23/20 23:15 Last Admin: 09/23/20 23:15 Dose: 75 ml Documented by: Methylprednisolone Sodium Succinate (Methylprednisolone Sodium Succinate 125 Mg/2 Ml Sdv) 125 mg IVPUSH ONETIME ONE Stop: 09/24/20 00:48 Last Admin: 09/24/20 01:25 Dose: 125 mg Documented by: Morphine Sulfate (Morphine 4 Mg/Ml Syringe) 4 mg IVPUSH ONETIME ONE Stop: 09/23/20 21:13 Last Admin: 09/23/20 21:23 Dose: 4 mg Documented by: Morphine Sulfate (Morphine 4 Mg/Ml Syringe) 4 mg IVPUSH ONETIME ONE Stop: 09/23/20 21:55 Last Admin: 09/23/20 22:33 Dose: 4 mg Documented by: Morphine Sulfate (Morphine 4 Mg/Ml Syringe) 4 mg IVPUSH ONETIME ONE Stop: 09/23/20 23:18 Last Admin: 09/23/20 23:33 Dose: 4 mg Documented by: Morphine Sulfate (Morphine 2 Mg/Ml Syringe) 2 mg IVPUSH Q2H PRN PRN Reason: Pain Last Admin: 09/24/20 09:26 Dose: 2 mg Documented by: Ondansetron HCl (Ondansetron 4 Mg/2 Ml Sdv) 4 mg IVPUSH ONETIME ONE Stop: 09/23/20 21:13 Last Admin: 09/23/20 21:22 Dose: 4 mg Documented by: Ondansetron HCl (Ondansetron 4 Mg Tab.Dis) 4 mg PO ONETIME ONE Stop: 09/23/20 23:18 Last Admin: 09/23/20 23:26 Dose: Not Given Documented by: Ondansetron HCl (Ondansetron 4 Mg/2 Ml Sdv) 4 mg IVPUSH ONETIME ONE Stop: 09/23/20 23:27 Last Admin: 09/23/20 23:32 Dose: 4 mg Documented by: - Exam General: Alert, Oriented Lungs: Clear to Auscultation, Normal Respiratory Effort Cardiovascular: Regular Rate, Regular Rhythm GI/Abdominal Exam: Normal Bowel Sounds, Soft, No Organomegaly, Tender, Other (Colostomy bag noted, no abnormal redness or drainage around the wound) - Patient Data Lab Results Last 24 hrs: Laboratory Results - last 24 hr 09/24/20 09/24/20 09/25/20 Range/Units 14:51 20:34 02:46 WBC (4.0-11.0) K/uL RBC (4.30-5.90) M/uL Hgb (12.0-16.0) g/dL Hct (36.0-46.0) % MCV (80.0-98.0) fL MCH (27.0-32.0) pg MCHC (31.0-37.0) g/dL RDW Std Deviation (28.0-62.0) fl RDW Coeff of Buck (11.0-15.0) % Plt Count (150-400) K/uL MPV (7.40-12.00) fL Neut % (Auto) (48.0-80.0) % Lymph % (Auto) (16.0-40.0) % [place] % (Auto) (0.0-15.0) % Eos % (Auto) (0.0-7.0) % Baso % (Auto) (0.0-1.5) % Neut # (Auto) (1.4-5.7) K/uL Lymph # (Auto) (0.6-2.4) K/uL [place] # (Auto) (0.0-0.8) K/uL Eos # (Auto) (0.0-0.7) K/uL Baso # (Auto) (0.0-0.1) K/uL Nucleated RBC % /100WBC Nucleated RBCs # K/uL Sodium (136-145) mmol/L Potassium (3.5-5.1) mmol/L Chloride (98-107) mmol/L Carbon Dioxide (21.0-32.0) mmol/L BUN (7.0-18.0) mg/dL Creatinine (0.6-1.0) mg/dL Est Cr Clr Drug Dosing mL/min Estimated GFR (MDRD) ml/min Glucose (74-106) mg/dL POC Glucose 115 H 95 109 H (70-99) mg/dL Calcium (8.5-10.1) mg/dL Phosphorus (2.6-4.7) mg/dL Magnesium (1.8-2.4) mg/dL 09/25/20 09/25/20 09/25/20 Range/Units 08:20 08:20 10:18 WBC 9.30 (4.0-11.0) K/uL RBC 4.34 (4.30-5.90) M/uL Hgb 9.7 L (12.0-16.0) g/dL Hct 30.9 L (36.0-46.0) % MCV 71.2 L (80.0-98.0) fL MCH 22.4 L (27.0-32.0) pg MCHC 31.4 (31.0-37.0) g/dL RDW Std Deviation 40.7 (28.0-62.0) fl RDW Coeff of Buck 16 H (11.0-15.0) % Plt Count 436 H (150-400) K/uL MPV 10.50 (7.40-12.00) fL Neut % (Auto) 78.0 (48.0-80.0) % Lymph % (Auto) 12.4 L (16.0-40.0) % [place] % (Auto) 9.5 (0.0-15.0) % Eos % (Auto) 0.0 (0.0-7.0) % Baso % (Auto) 0.1 (0.0-1.5) % Neut # (Auto) 7.3 H (1.4-5.7) K/uL Lymph # (Auto) 1.2 (0.6-2.4) K/uL [place] # (Auto) 0.9 H (0.0-0.8) K/uL Eos # (Auto) 0.0 (0.0-0.7) K/uL Baso # (Auto) 0.0 (0.0-0.1) K/uL Nucleated RBC % 0.0 /100WBC Nucleated RBCs # 0 K/uL Sodium 140 (136-145) mmol/L Potassium 4.2 (3.5-5.1) mmol/L Chloride 102 (98-107) mmol/L Carbon Dioxide 27.8 (21.0-32.0) mmol/L BUN 9 (7.0-18.0) mg/dL Creatinine 0.7 (0.6-1.0) mg/dL Est Cr Clr Drug Dosing 103.99 mL/min Estimated GFR (MDRD) > 60.0 ml/min Glucose 108 H (74-106) mg/dL POC Glucose 114 H (70-99) mg/dL Calcium 9.2 (8.5-10.1) mg/dL Phosphorus 4.1 (2.6-4.7) mg/dL Magnesium 1.6 L (1.8-2.4) mg/dL Result Diagrams: 09/25/20 08:20 07/10/21 08:20 Sepsis Event Note - Evaluation Sepsis Screening Result: No Definite Risk - Focused Exam Vital Signs: Vital Signs Temp Pulse Resp BP Pulse Ox 09/25/20 08:00 36.6 C 71 16 101/59 L 100 09/25/20 04:00 35.9 C L 66 15 112/57 L 98 - Problem List & Annotations (1) Abdominal pain SNOMED Code(s): 58738894 Code(s): R10.9 - UNSPECIFIED ABDOMINAL PAIN Status: Acute Priority: Medium Current Visit: Yes Qualifiers: Abdominal location: generalized Qualified Code(s): R10.84 - Generalized abdominal pain (2) Colitis SNOMED Code(s): 59779943 Code(s): K52.9 - NONINFECTIVE GASTROENTERITIS AND COLITIS, UNSPECIFIED Status: Acute Priority: High Current Visit: Yes (3) Intractable pain SNOMED Code(s): 11038362 Code(s): R52 - PAIN, UNSPECIFIED Status: Acute Current Visit: Yes (4) Ulcerative colitis SNOMED Code(s): 25772683 Code(s): K51.90 - ULCERATIVE COLITIS, UNSPECIFIED, WITHOUT COMPLICATIONS Status: Chronic Current Visit: Yes Qualifiers: Ulcerative colitis location: ulcerative pancolitis Digestive disease com plication type: with rectal bleeding Qualified Code(s): K51.011 - Ulcerative (chronic) pancolitis with rectal bleeding (5) Hx of Clostridium difficile infection SNOMED Code(s): 410281629850434, 531390215366716 Code(s): Z86.19 - PERSONAL HISTORY OF OTHER INFECTIOUS AND PARASITIC DISEASES Status: Chronic Current Visit: No (6) Ileostomy present SNOMED Code(s): 999514429 Code(s): Z93.2 - ILEOSTOMY STATUS Status: Chronic Current Visit: No - Problem List Review Problem List Initiated/Reviewed/Updated: Yes - My Orders Last 24 Hours: My Active Orders 09/24/20 21:00 Pantoprazole [ProTONIX IV] 40 mg Sodium Chloride 0.9% [Normal Saline] 10 ml IV Q24H 09/25/20 Lunch Clear Liquid Diet [DIET] - Plan Plan:: 20-year-old female admitted for colitis/proctitis secondary to her ambulatory bowel disease flare No bleeding noted this time Continue IV Solu-Medrol 40 mg every 8 hours C. difficile is negative, no white count, no fever I do not suspect infectious source right now, will hold off on antibiotics unless patient's clinical status deteriorates We will advance diet to clear diet for now, If able to tolerate oral diet will switch from IV Dilaudid to oral oxycodone IV Zofran as needed for nausea vomiting Continue IV fluid hydration patient is able to tolerate oral diet Continue supportive care Monitor and replete electrolytes as necessary If clinical symptoms do not improve the next 24 to 48 hours will reach out to patient's surgical team at [facility].
[2020-09-25] MEDS: oxyCODONE 5 MG Tab PO PRN ×2 (19:01→23:01)
[2020-09-25] MEDS: Pantoprazole 40 MG in Sodium Chloride 0.9% 10 ML IV SCH (20:23)
[2020-09-26] MEDS: methylPREDNISolone Sodium Succinate 40 MG/1 ML SDV IVPUSH SCH ×3 (01:24→16:56)
[2020-09-26] MEDS: Lactated Ringers 1,000 ML IV SCH ×3 (01:29→18:46)
[2020-09-26] MEDS: oxyCODONE 5 MG Tab PO PRN (05:26)
[2020-09-26 08:00] LABS: BLOOD UREA NITROGEN,BUN 9 mg/dL (7.0-18.0); CARBON DIOXIDE,CO2 27.2 mmol/L (21.0-32.0); CHLORIDE,CL 105 mmol/L (98-107); GLUCOSE RANDOM 130 mg/dL (74-106); SODIUM,NA 140 mmol/L (136-145)
[2020-09-26] MEDS: Ondansetron 4 MG/2 ML SDV IVPUSH PRN (09:53)
[2020-09-26] MEDS ORDERED: Magnesium Sulfate/Water 4 GM in Premix Bag 1 BAG IV ONE (10:28)
[2020-09-26] MEDS: HYDROmorphone 1 MG/ML Syringe IVPUSH PRN ×4 (11:00→23:18)
--- NOTE | 2020-09-26 13:41 | PCM.PN ---
- General Info Date of Service: 09/26/20 Admission Dx/Problem (Free Text): Admission Diagnosis/Problem Admission Diagnosis/Problem Colitis Subjective Update: seen at bedside, states her pain got worse last night as oxycodone wasnt doing much, requesting Dilaudid, one episode of vomiting, no rectal bleeding, no fever, chills Functional Status: Reports: Ambulating, Urinating. Denies: Tolerating Diet - Review of Systems General: Denies: Fever, Weakness, Fatigue Pulmonary: Denies: Shortness of Breath, Pleuritic Chest Pain Cardiovascular: Denies: Chest Pain, Palpitations Gastrointestinal: Reports: Abdominal Pain, Nausea. Denies: Constipation, Decreased Appetite, Diarrhea, Difficulty Swallowing, Vomiting Genitourinary: Denies: Frequency, Burning, Pain Musculoskeletal: Denies: Shoulder Pain, Arm Pain, Hand Pain Skin: Denies: Jaundice, Mottled, Pallor Neurological: Denies: Dizziness, Headache - Patient Data Vitals - Most Recent: Last Vital Signs Temp 36.2 C 09/26/20 12:00 Pulse 66 09/26/20 12:00 Resp 18 09/26/20 12:00 BP 108/76 09/26/20 12:00 Pulse Ox 100 09/26/20 12:00 Weight - Most Recent: 52.254 kg I&O - Last 24 Hours: Intake & Output 09/25/20 09/26/20 09/26/20 22:59 06:59 14:59 Intake Total 1682 2154 Output Total 3250 1250 Balance -1568 904 Lab Results Last 24 Hours: Laboratory Results - last 24 hr 09/26/20 09/26/20 Range/Units 07:35 07:35 WBC 6.07 (4.0-11.0) K/uL RBC 3.87 L (4.30-5.90) M/uL Hgb 8.8 L (12.0-16.0) g/dL Hct 27.8 L (36.0-46.0) % MCV 71.8 L (80.0-98.0) fL MCH 22.7 L (27.0-32.0) pg MCHC 31.7 (31.0-37.0) g/dL RDW Std Deviation 41.6 (28.0-62.0) fl RDW Coeff of Buck 16 H (11.0-15.0) % Plt Count 416 H (150-400) K/uL MPV 10.60 (7.40-12.00) fL Neut % (Auto) 74.9 (48.0-80.0) % Lymph % (Auto) 15.2 L (16.0-40.0) % [place] % (Auto) 9.9 (0.0-15.0) % Eos % (Auto) 0.0 (0.0-7.0) % Baso % (Auto) 0.0 (0.0-1.5) % Neut # (Auto) 4.6 (1.4-5.7) K/uL Lymph # (Auto) 0.9 (0.6-2.4) K/uL [place] # (Auto) 0.6 (0.0-0.8) K/uL Eos # (Auto) 0.0 (0.0-0.7) K/uL Baso # (Auto) 0.0 (0.0-0.1) K/uL Nucleated RBC % 0.0 /100WBC Nucleated RBCs # 0 K/uL Sodium 140 (136-145) mmol/L Potassium 4.0 (3.5-5.1) mmol/L Chloride 105 (98-107) mmol/L Carbon Dioxide 27.2 (21.0-32.0) mmol/L BUN 9 (7.0-18.0) mg/dL Creatinine 0.7 (0.6-1.0) mg/dL Est Cr Clr Drug Dosing 103.99 mL/min Estimated GFR (MDRD) > 60.0 ml/min Glucose 130 H (74-106) mg/dL Calcium 8.8 (8.5-10.1) mg/dL Phosphorus 3.6 (2.6-4.7) mg/dL Magnesium 1.6 L (1.8-2.4) mg/dL Med Orders - Current: Current Medications Albuterol/Ipratropium (Albuterol/Ipratropium 3.0-0.5 Mg/3 Ml Neb Soln) 3 ml NEB Q4HRRT PRN PRN Reason: Shortness Of Breath/wheezing Hydromorphone HCl (Hydromorphone 1 Mg/Ml Syringe) 0.5 mg IVPUSH Q3H PRN PRN Reason: Abdominal Pain Last Admin: 09/26/20 11:00 Dose: 0.5 mg Documented by: Lactated Ringer's (Ringers, Lactated) 1,000 mls @ 125 mls/hr IV ASDIRECTED DONNIE Last Admin: 09/26/20 09:54 Dose: 125 mls/hr Documented by: Pantoprazole Sodium 40 mg/ (Sodium Chloride) 10 mls @ 300 mls/hr IV Q24H DONNIE Last Admin: 09/25/20 20:23 Dose: 300 mls/hr Documented by: Methylprednisolone Sodium Succinate (Methylprednisolone Sodium Succinate 40 Mg/1 Ml Sdv) 40 mg IVPUSH Q8H DONNIE Last Admin: 09/26/20 08:34 Dose: 40 mg Documented by: Ondansetron HCl (Ondansetron 4 Mg/2 Ml Sdv) 4 mg IVPUSH Q4H PRN PRN Reason: Nausea/Vomiting Last Admin: 09/26/20 09:53 Dose: 4 mg Documented by: Sodium Chloride (Sodium Chloride 0.9% 10 Ml Syringe) 10 ml FLUSH ASDIRECTED PRN PRN Reason: Keep Vein Open Sodium Chloride (Sodium Chloride 0.9% 2.5 Ml Syringe) 2.5 ml FLUSH ASDIRECTED PRN PRN Reason: Keep Vein Open Discontinued Medications Hydromorphone HCl (Hydromorphone 1 Mg/Ml Syringe) 0.5 mg IVPUSH Q3H PRN PRN Reason: Pain Last Admin: 09/25/20 13:53 Dose: 0.5 mg Documented by: Lactated Ringer's (Ringers, Lactated) 1,000 mls @ 999 mls/hr IV .BOLUS ONE Stop: 09/23/20 22:12 Last Admin: 09/23/20 21:20 Dose: 999 mls/hr Documented by: Pantoprazole Sodium 40 mg/ (Sodium Chloride) 20 mls @ 420 mls/hr IVPUSH ONETIME ONE Stop: 09/24/20 00:48 Last Admin: 09/24/20 01:25 Dose: 420 mls/hr Documented by: Magnesium Sulfate 2 gm/ Premix 50 mls @ 50 mls/hr IV ONETIME ONE Stop: 09/25/20 10:11 Last Admin: 09/25/20 10:20 Dose: 50 mls/hr Documented by: Magnesium Sulfate 4 gm/ Premix 100 mls @ 33.333 mls/hr IV ONETIME ONE Stop: 09/26/20 13:27 Last Admin: 09/26/20 10:54 Dose: 33.333 mls/hr Documented by: Iopamidol (Iopamidol 755 Mg/Ml 500 Ml Multipack Bottle) 75 ml IVPUSH ONETIME STA Stop: 09/23/20 23:15 Last Admin: 09/23/20 23:15 Dose: 75 ml Documented by: Methylprednisolone Sodium Succinate (Methylprednisolone Sodium Succinate 125 Mg/2 Ml Sdv) 125 mg IVPUSH ONETIME ONE Stop: 09/24/20 00:48 Last Admin: 09/24/20 01:25 Dose: 125 mg Documented by: Morphine Sulfate (Morphine 4 Mg/Ml Syringe) 4 mg IVPUSH ONETIME ONE Stop: 09/23/20 21:13 Last Admin: 09/23/20 21:23 Dose: 4 mg Documented by: Morphine Sulfate (Morphine 4 Mg/Ml Syringe) 4 mg IVPUSH ONETIME ONE Stop: 09/23/20 21:55 Last Admin: 09/23/20 22:33 Dose: 4 mg Documented by: Morphine Sulfate (Morphine 4 Mg/Ml Syringe) 4 mg IVPUSH ONETIME ONE Stop: 09/23/20 23:18 Last Admin: 09/23/20 23:33 Dose: 4 mg Documented by: Morphine Sulfate (Morphine 2 Mg/Ml Syringe) 2 mg IVPUSH Q2H PRN PRN Reason: Pain Last Admin: 09/24/20 09:26 Dose: 2 mg Documented by: Ondansetron HCl (Ondansetron 4 Mg/2 Ml Sdv) 4 mg IVPUSH ONETIME ONE Stop: 09/23/20 21:13 Last Admin: 09/23/20 21:22 Dose: 4 mg Documented by: Ondansetron HCl (Ondansetron 4 Mg Tab.Dis) 4 mg PO ONETIME ONE Stop: 09/23/20 23:18 Last Admin: 09/23/20 23:26 Dose: Not Given Documented by: Ondansetron HCl (Ondansetron 4 Mg/2 Ml Sdv) 4 mg IVPUSH ONETIME ONE Stop: 09/23/20 23:27 Last Admin: 09/23/20 23:32 Dose: 4 mg Documented by: Oxycodone HCl (Oxycodone 5 Mg Tab) 5 mg PO Q4H PRN PRN Reason: Pain Last Admin: 09/26/20 05:26 Dose: 5 mg Documented by: - Exam General: Alert, Oriented Neck: Supple Lungs: Clear to Auscultation, Normal Respiratory Effort Cardiovascular: Regular Rate, Regular Rhythm GI/Abdominal Exam: Normal Bowel Sounds, Soft, No Distention, Guarding, Tender. No: Abnormal Bowel Sounds - Patient Data Lab Results Last 24 hrs: Laboratory Results - last 24 hr 09/26/20 09/26/20 Range/Units 07:35 07:35 WBC 6.07 (4.0-11.0) K/uL RBC 3.87 L (4.30-5.90) M/uL Hgb 8.8 L (12.0-16.0) g/dL Hct 27.8 L (36.0-46.0) % MCV 71.8 L (80.0-98.0) fL MCH 22.7 L (27.0-32.0) pg MCHC 31.7 (31.0-37.0) g/dL RDW Std Deviation 41.6 (28.0-62.0) fl RDW Coeff of Buck 16 H (11.0-15.0) % Plt Count 416 H (150-400) K/uL MPV 10.60 (7.40-12.00) fL Neut % (Auto) 74.9 (48.0-80.0) % Lymph % (Auto) 15.2 L (16.0-40.0) % [place] % (Auto) 9.9 (0.0-15.0) % Eos % (Auto) 0.0 (0.0-7.0) % Baso % (Auto) 0.0 (0.0-1.5) % Neut # (Auto) 4.6 (1.4-5.7) K/uL Lymph # (Auto) 0.9 (0.6-2.4) K/uL [place] # (Auto) 0.6 (0.0-0.8) K/uL Eos # (Auto) 0.0 (0.0-0.7) K/uL Baso # (Auto) 0.0 (0.0-0.1) K/uL Nucleated RBC % 0.0 /100WBC Nucleated RBCs # 0 K/uL Sodium 140 (136-145) mmol/L Potassium 4.0 (3.5-5.1) mmol/L Chloride 105 (98-107) mmol/L Carbon Dioxide 27.2 (21.0-32.0) mmol/L BUN 9 (7.0-18.0) mg/dL Creatinine 0.7 (0.6-1.0) mg/dL Est Cr Clr Drug Dosing 103.99 mL/min Estimated GFR (MDRD) > 60.0 ml/min Glucose 130 H (74-106) mg/dL Calcium 8.8 (8.5-10.1) mg/dL Phosphorus 3.6 (2.6-4.7) mg/dL Magnesium 1.6 L (1.8-2.4) mg/dL Result Diagrams: 09/26/20 07:35 09/26/20 07:35 Sepsis Event Note - Evaluation Sepsis Screening Result: No Definite Risk - Focused Exam Vital Signs: Vital Signs Temp Pulse Resp BP Pulse Ox 09/26/20 12:00 36.2 C 66 18 108/76 100 09/26/20 08:00 36.6 C 52 L 16 119/59 L 99 09/26/20 05:00 36.6 C 60 16 104/56 L 97 - Problem List & Annotations (1) Abdominal pain SNOMED Code(s): 28473647 Code(s): R10.9 - UNSPECIFIED ABDOMINAL PAIN Status: Acute Priority: Me dium Current Visit: Yes Qualifiers: Abdominal location: generalized Qualified Code(s): R10.84 - Generalized abdominal pain (2) Colitis SNOMED Code(s): 11149588 Code(s): K52.9 - NONINFECTIVE GASTROENTERITIS AND COLITIS, UNSPECIFIED Status: Acute Priority: High Current Visit: Yes (3) Intractable pain SNOMED Code(s): 02843921 Code(s): R52 - PAIN, UNSPECIFIED Status: Acute Current Visit: Yes (4) Ulcerative colitis SNOMED Code(s): 06477774 Code(s): K51.90 - ULCERATIVE COLITIS, UNSPECIFIED, WITHOUT COMPLICATIONS Status: Chronic Current Visit: Yes Qualifiers: Ulcerative colitis location: ulcerative pancolitis Digestive disease complication type: with rectal bleeding Qualified Code(s): K51.011 - Ulcerative (chronic) pancolitis with rectal bleeding (5) Hx of Clostridium difficile infection SNOMED Code(s): 553844059385272, 982402335462636 Code(s): Z86.19 - PERSONAL HISTORY OF OTHER INFECTIOUS AND PARASITIC DISEASES Status: Chronic Current Visit: No (6) Ileostomy present SNOMED Code(s): 159440856 Code(s): Z93.2 - ILEOSTOMY STATUS Status: Chronic Current Visit: No - Problem List Review Problem List Initiated/Reviewed/Updated: Yes - My Orders Last 24 Hours: My Active Orders 09/26/20 10:27 HYDROmorphone [Dilaudid] 0.5 mg IVPUSH Q3H PRN 09/26/20 Lunch Clear Liquid Diet [DIET] - Plan Plan:: 20-year-old female admitted for colitis/proctitis secondary to her ambulatory bowel disease flare No bleeding noted this time Continue IV Solu-Medrol 40 mg every 8 hours C. difficile is negative, no white count, no fever I do not suspect infectious source right now, will hold off on antibiotics unless patient's clinical status deteriorates was on soft diet for timer, couldnt tolerate well so will downgrade to clear diet for now resume IV Dilaudid, stop oxycodone IV Zofran as needed for nausea vomiting Continue IV fluid hydration Continue supportive care Monitor and replete electrolytes as necessary
[2020-09-26] MEDS: Pantoprazole 40 MG in Sodium Chloride 0.9% 10 ML IV SCH (20:13)
[2020-09-27] MEDS: methylPREDNISolone Sodium Succinate 40 MG/1 ML SDV IVPUSH SCH ×3 (00:19→16:59)
[2020-09-27] MEDS: Lactated Ringers 1,000 ML IV SCH ×2 (05:24→14:00)
[2020-09-27] MEDS: HYDROmorphone 1 MG/ML Syringe IVPUSH PRN ×2 (05:42→10:18)
[2020-09-27] MEDS: Ondansetron 4 MG/2 ML SDV IVPUSH PRN ×2 (05:42→10:18)
[2020-09-27 06:22] LABS: BLOOD UREA NITROGEN,BUN 8 mg/dL (7.0-18.0); CARBON DIOXIDE,CO2 27.4 mmol/L (21.0-32.0); CHLORIDE,CL 103 mmol/L (98-107); GLUCOSE RANDOM 112 mg/dL (74-106); POTASSIUM,K 3.8 mmol/L (3.5-5.1); SODIUM,NA 140 mmol/L (136-145)
[2020-09-27] MEDS ORDERED: HYDROmorphone 1 MG/ML Syringe IVPUSH PRN (12:46)
--- NOTE | 2020-09-27 13:35 | PCM.PN ---
- General Info Date of Service: 09/27/20 Admission Dx/Problem (Free Text): Admission Diagnosis/Problem Admission Diagnosis/Problem Colitis Subjective Update: Feeling a little bit improved today. Pain is approximately 4-6 out of 10. Denies any nausea vomiting. Eager to try soft diet. Discussed transitioning from IV pain medications to oral today. Functional Status: Reports: Tolerating Diet (Clear liquid diet), Ambulating, Urinating - Review of Systems General: Reports: No Symptoms. Denies: Weakness, Fatigue, Malaise Pulmonary: Reports: No Symptoms. Denies: Shortness of Breath Cardiovascular: Reports: No Symptoms. Denies: Chest Pain Gastrointestinal: Reports: Abdominal Pain. Denies: Nausea, Vomiting Genitourinary: Reports: No Symptoms. Denies: Dysuria, Frequency, Burning Musculoskeletal: Reports: No Symptoms Skin: Reports: No Symptoms Neurological: Reports: No Symptoms Psychiatric: Reports: No Symptoms - Patient Data Vitals - Most Recent: Last Vital Signs Temp 97.8 F 09/27/20 12:00 Pulse 53 L 09/27/20 12:00 Resp 20 09/27/20 12:00 BP 125/73 09/27/20 12:00 Pulse Ox 99 09/27/20 12:00 Weight - Most Recent: 52.254 kg I&O - Last 24 Hours: Intake & Output 09/26/20 09/27/20 09/27/20 22:59 06:59 14:59 Intake Total 2503 1820 Output Total 3175 1150 Balance -672 670 Lab Results Last 24 Hours: Laboratory Results - last 24 hr 09/27/20 09/27/20 Range/Units 05:18 05:18 WBC 6.94 (4.0-11.0) K/uL RBC 4.37 (4.30-5.90) M/uL Hgb 9.8 L (12.0-16.0) g/dL Hct 31.6 L (36.0-46.0) % MCV 72.3 L (80.0-98.0) fL MCH 22.4 L (27.0-32.0) pg MCHC 31.0 (31.0-37.0) g/dL RDW Std Deviation 42.3 (28.0-62.0) fl RDW Coeff of Buck 16 H (11.0-15.0) % Plt Count 464 H (150-400) K/uL MPV 11.10 (7.40-12.00) fL Neut % (Auto) 73.5 (48.0-80.0) % Lymph % (Auto) 17.1 (16.0-40.0) % [place] % (Auto) 9.4 (0.0-15.0) % Eos % (Auto) 0.0 (0.0-7.0) % Baso % (Auto) 0.0 (0.0-1.5) % Neut # (Auto) 5.1 (1.4-5.7) K/uL Lymph # (Auto) 1.2 (0.6-2.4) K/uL [place] # (Auto) 0.7 (0.0-0.8) K/uL Eos # (Auto) 0.0 (0.0-0.7) K/uL Baso # (Auto) 0.0 (0.0-0.1) K/uL Nucleated RBC % 0.0 /100WBC Nucleated RBCs # 0 K/uL Sodium 140 (136-145) mmol/L Potassium 3.8 (3.5-5.1) mmol/L Chloride 103 (98-107) mmol/L Carbon Dioxide 27.4 (21.0-32.0) mmol/L BUN 8 (7.0-18.0) mg/dL Creatinine 0.8 (0.6-1.0) mg/dL Est Cr Clr Drug Dosing 90.99 mL/min Estimated GFR (MDRD) > 60.0 ml/min Glucose 112 H (74-106) mg/dL Calcium 9.0 (8.5-10.1) mg/dL Phosphorus 4.5 (2.6-4.7) mg/dL Magnesium 2.0 (1.8-2.4) mg/dL Rohit Results Last 24 Hours: Microbiology 09/25/20 10:50 Stool Culture - Preliminary Stool / Feces Shiga Toxin I & II - Final Med Orders - Current: Current Medications Albuterol/Ipratropium (Albuterol/Ipratropium 3.0-0.5 Mg/3 Ml Neb Soln) 3 ml NEB Q4HRRT PRN PRN Reason: Shortness Of Breath/wheezing Hydromorphone HCl (Hydromorphone 1 Mg/Ml Syringe) 0.5 mg IVPUSH Q4H PRN PRN Reason: Abdominal Pain Lactated Ringer's (Ringers, Lactated) 1,000 mls @ 125 mls/hr IV ASDIRECTED DONNIE Last Admin: 09/27/20 05:24 Dose: 125 mls/hr Documented by: Pantoprazole Sodium 40 mg/ (Sodium Chloride) 10 mls @ 300 mls/hr IV Q24H DONNIE Last Admin: 09/26/20 20:13 Dose: 300 mls/hr Documented by: Methylprednisolone Sodium Succinate (Methylprednisolone Sodium Succinate 40 Mg/1 Ml Sdv) 40 mg IVPUSH Q8H DONNIE Last Admin: 09/27/20 10:20 Dose: 40 mg Documented by: Ondansetron HCl (Ondansetron 4 Mg/2 Ml Sdv) 4 mg IVPUSH Q4H PRN PRN Reason: Nausea/Vomiting Last Admin: 09/27/20 10:18 Dose: 4 mg Documented by: Oxycodone HCl (Oxycodone 5 Mg Tab) 10 mg PO Q6H PRN PRN Reason: Pain Sodium Chloride (Sodium Chloride 0.9% 10 Ml Syringe) 10 ml FLUSH ASDIRECTED PRN PRN Reason: Keep Vein Open Sodium Chloride (Sodium Chloride 0.9% 2.5 Ml Syringe) 2.5 ml FLUSH ASDIRECTED PRN PRN Reason: Keep Vein Open Discontinued Medications Hydromorphone HCl (Hydromorphone 1 Mg/Ml Syringe) 0.5 mg IVPUSH Q3H PRN PRN Reason: Pain Last Admin: 09/25/20 13:53 Dose: 0.5 mg Documented by: Hydromorphone HCl (Hydromorphone 1 Mg/Ml Syringe) 0.5 mg IVPUSH Q3H PRN PRN Reason: Abdominal Pain Last Admin: 09/27/20 10:18 Dose: 0.5 mg Documented by: Lactated Ringer's (Ringers, Lactated) 1,000 mls @ 999 mls/hr IV .BOLUS ONE Stop: 09/23/20 22:12 Last Admin: 09/23/20 21:20 Dose: 999 mls/hr Documented by: Pantoprazole Sodium 40 mg/ (Sodium Chloride) 20 mls @ 420 mls/hr IVPUSH ONETIME ONE Stop: 09/24/20 00:48 Last Admin: 09/24/20 01:25 Dose: 420 mls/hr Documented by: Magnesium Sulfate 2 gm/ Premix 50 mls @ 50 mls/hr IV ONETIME ONE Stop: 09/25/20 10:11 Last Admin: 09/25/20 10:20 Dose: 50 mls/hr Documented by: Magnesium Sulfate 4 gm/ Premix 100 mls @ 33.333 mls/hr IV ONETIME ONE Stop: 09/26/20 13:27 Last Admin: 09/26/20 10:54 Dose: 33.333 mls/hr Documented by: Iopamidol (Iopamidol 755 Mg/Ml 500 Ml Multipack Bottle) 75 ml IVPUSH ONETIME STA Stop: 09/23/20 23:15 Last Admin: 09/23/20 23:15 Dose: 75 ml Documented by: Methylprednisolone Sodium Succinate (Methylprednisolone Sodium Succinate 125 Mg /2 Ml Sdv) 125 mg IVPUSH ONETIME ONE Stop: 09/24/20 00:48 Last Admin: 09/24/20 01:25 Dose: 125 mg Documented by: Morphine Sulfate (Morphine 4 Mg/Ml Syringe) 4 mg IVPUSH ONETIME ONE Stop: 09/23/20 21:13 Last Admin: 09/23/20 21:23 Dose: 4 mg Documented by: Morphine Sulfate (Morphine 4 Mg/Ml Syringe) 4 mg IVPUSH ONETIME ONE Stop: 09/23/20 21:55 Last Admin: 09/23/20 22:33 Dose: 4 mg Documented by: Morphine Sulfate (Morphine 4 Mg/Ml Syringe) 4 mg IVPUSH ONETIME ONE Stop: 09/23/20 23:18 Last Admin: 09/23/20 23:33 Dose: 4 mg Documented by: Morphine Sulfate (Morphine 2 Mg/Ml Syringe) 2 mg IVPUSH Q2H PRN PRN Reason: Pain Last Admin: 09/24/20 09:26 Dose: 2 mg Documented by: Ondansetron HCl (Ondansetron 4 Mg/2 Ml Sdv) 4 mg IVPUSH ONETIME ONE Stop: 09/23/20 21:13 Last Admin: 09/23/20 21:22 Dose: 4 mg Documented by: Ondansetron HCl (Ondansetron 4 Mg Tab.Dis) 4 mg PO ONETIME ONE Stop: 09/23/20 23:18 Last Admin: 09/23/20 23:26 Dose: Not Given Documented by: Ondansetron HCl (Ondansetron 4 Mg/2 Ml Sdv) 4 mg IVPUSH ONETIME ONE Stop: 09/23/20 23:27 Last Admin: 09/23/20 23:32 Dose: 4 mg Documented by: Oxycodone HCl (Oxycodone 5 Mg Tab) 5 mg PO Q4H PRN PRN Reason: Pain Last Admin: 09/26/20 05:26 Dose: 5 mg Documented by: - Exam Quality Assessment: DVT Prophylaxis. No: Supplemental Oxygen General: Alert, Oriented, Cooperative, No Acute Distress Lungs: Clear to Auscultation, Normal Respiratory Effort Cardiovascular: Regular Rate, Regular Rhythm GI/Abdominal Exam: Normal Bowel Sounds, Soft, Non-Tender, Other (Ostomy in place with stool, liquid) Extremities: Normal Inspection, Normal Range of Motion, Non-Tender, No Pedal Edema Neurological: No New Focal Deficit Psy/Mental Status: Alert, Normal Affect, Normal Mood - Patient Data Lab Results Last 24 hrs: Laboratory Results - last 24 hr 09/27/20 09/27/20 Range/Units 05:18 05:18 WBC 6.94 (4.0-11.0) K/uL RBC 4.37 (4.30-5.90) M/uL Hgb 9.8 L (12.0-16.0) g/dL Hct 31.6 L (36.0-46.0) % MCV 72.3 L (80.0-98.0) fL MCH 22.4 L (27.0-32.0) pg MCHC 31.0 (31.0-37.0) g/dL RDW Std Deviation 42.3 (28.0-62.0) fl RDW Coeff of Buck 16 H (11.0-15.0) % Plt Count 464 H (150-400) K/uL MPV 11.10 (7.40-12.00) fL Neut % (Auto) 73.5 (48.0-80.0) % Lymph % (Auto) 17.1 (16.0-40.0) % [place] % (Auto) 9.4 (0.0-15.0) % Eos % (Auto) 0.0 (0.0-7.0) % Baso % (Auto) 0.0 (0.0-1.5) % Neut # (Auto) 5.1 (1.4-5.7) K/uL Lymph # (Auto) 1.2 (0.6-2.4) K/uL [place] # (Auto) 0.7 (0.0-0.8) K/uL Eos # (Auto) 0.0 (0.0-0.7) K/uL Baso # (Auto) 0.0 (0.0-0.1) K/uL Nucleated RBC % 0.0 /100WBC Nucleated RBCs # 0 K/uL Sodium 140 (136-145) mmol/L Potassium 3.8 (3.5-5.1) mmol/L Chloride 103 (98-107) mmol/L Carbon Dioxide 27.4 (21.0-32.0) mmol/L BUN 8 (7.0-18.0) mg/dL Creatinine 0.8 (0.6-1.0) mg/dL Est Cr Clr Drug Dosing 90.99 mL/min Estimated GFR (MDRD) > 60.0 ml/min Glucose 112 H (74-106) mg/dL Calcium 9.0 (8.5-10.1) mg/dL Phosphorus 4.5 (2.6-4.7) mg/dL Magnesium 2.0 (1.8-2.4) mg/dL Result Diagrams: 09/27/20 05:18 09/27/20 05:18 Rohit Results Last 24 hrs: Microbiology 09/25/20 10:50 Stool Culture - Preliminary Stool / Feces Shiga Toxin I & II - Final Sepsis Event Note - Evaluation Sepsis Screening Result: No Definite Risk - Focused Exam Vital Signs: Vital Signs Temp Pulse Resp BP Pulse Ox 09/27/20 12:00 97.8 F 53 L 20 125/73 99 09/27/20 08:05 96.9 F 46 L 20 115/68 99 09/27/20 05:19 97.0 F 52 L 16 118/68 98 - Problem List & Annotations (1) Ulcerative colitis SNOMED Code(s): 23514506 Code(s): K51.90 - ULCERATIVE COLITIS, UNSPECIFIED, WITHOUT COMPLICATIONS Status: Chronic Current Visit: Yes Qualifiers: Ulcerative colitis location: ulcerative pancolitis Digestive disease complication type: with rectal bleeding Qualified Code(s): K51.011 - Ulcerative (chronic) pancolitis with rectal bleeding (2) Abdominal pain SNOMED Code(s): 37520942 Code(s): R10.9 - UNSPECIFIED ABDOMINAL PAIN Status: Acute Current Visit: No (3) Anemia SNOMED Code(s): 365392286 Code(s): D64.9 - ANEMIA, UNSPECIFIED Status: Acute Current Visit: No (4) Ileostomy present SNOMED Code(s): 584386441 Code(s): Z93.2 - ILEOSTOMY STATUS Status: Chronic Current Visit: No - Problem List Review Problem List Initiated/Reviewed/Updated: Yes - My Orders Last 24 Hours: My Active Orders 09/27/20 Lunch Soft Diet [DIET] 09/27/20 12:45 oxyCODONE 10 mg PO Q6H PRN 09/27/20 12:46 Patient Status [ADT] Stat HYDROmorphone [Dilaudid] 0.5 mg IVPUSH Q4H PRN - Plan Plan:: 20-year-old female admitted for ulcerative colitis flare 1. UC flare -Slow steady improvement. -Eager to increase diet today, will increase to soft -No active acute bleeding noted - Continue IV Solu-Medrol 40 mg every 8 hours -All stool cultures including C. difficile negative no white count no fever no infectious source suspected at this time -Continue IV Dilaudid but increase frequency to every 4 hours transition to oral oxycodone did speak with patient regarding the need to cut back on IV pain medication she agreed verbalized understanding - IV Zofran as needed for nausea vomiting - Continue supportive care -Monitor and replete electrolytes as necessary -Continue to monitor ileostomy output goal is for at least 400 over 24 hours. VTE prophylaxis: SCDs and ambulation GI prophylaxis: Protonix CODE STATUS: Full code Dispo: We will make inpatient as she likely would not go home over the next 2 midnights. Patient continues to have pain and limited appetite and diet. Patient was informing nurse on surgeon recommendations from [facility]. Please see Dr. Mrecado's note for discussion between her and surgeon. Patient updated on plan.
[2020-09-27] MEDS: oxyCODONE 5 MG Tab PO PRN ×2 (14:04→21:33)
--- NOTE | 2020-09-27 17:45 | PCM.SN.2 ---
- Free Text/Narrative Note: I reached out to patient's colorectal surgeon in [facility], I spoke with the Dr. Werner's, fellow who returned my call. I thoroughly discussed patient's case with him, states that patient did in fact have her rectum removed as well and she has a rectal pouch in place. They seem to agree with our current treatment plan as of now, recommend stopping the fluids to avoid colonic wall edema to prevent ileus. Measuring the ostomy output closely, ideally it should be 400 cc to 500 cc when she starts eating better, only if patient's symptoms get progressively worse, or output is drastically decreased, then they recommended x-ray abdomen after oral contrast administration to assess for pseudoobstruction. Phone number to reach Dr Werner is [phone].
[2020-09-27] MEDS: Pantoprazole 40 MG in Sodium Chloride 0.9% 10 ML IV SCH (21:09)
[2020-09-28] MEDS: methylPREDNISolone Sodium Succinate 40 MG/1 ML SDV IVPUSH SCH ×2 (01:25→08:14)
[2020-09-28 05:49] LABS: BLOOD UREA NITROGEN,BUN 10 mg/dL (7.0-18.0); CARBON DIOXIDE,CO2 28.1 mmol/L (21.0-32.0); CHLORIDE,CL 103 mmol/L (98-107); GLUCOSE RANDOM 109 mg/dL (74-106); SODIUM,NA 136 mmol/L (136-145)
[2020-09-28] MEDS: oxyCODONE 5 MG Tab PO PRN ×4 (08:15→20:48)
--- NOTE | 2020-09-28 12:16 | PCM.PN ---
- General Info Date of Service: 09/28/20 Admission Dx/Problem (Free Text): Admission Diagnosis/Problem Admission Diagnosis/Problem Colitis Subjective Update: Doing well today. Reports pain is tolerable oxycodone is covering pain apparently. Does not want to try Dilaudid anymore as she feels this makes her feel quite loopy. Tolerating soft diet. Having appropriate stool amounts in her ileostomy. Reports stools a little bit more thick then difficult but continuing to pass approximately 400 mils in 24 hours. Functional Status: Reports: Pain Controlled, Tolerating Diet, Ambulating, Urinating - Review of Systems General: Reports: No Symptoms. Denies: Weakness, Fatigue HEENT: Reports: No Symptoms. Denies: Headaches, Sore Throat, Visual Changes Pulmonary: Reports: No Symptoms. Denies: Shortness of Breath Cardiovascular: Reports: No Symptoms. Denies: Chest Pain Gastrointestinal: Reports: Abdominal Pain, Diarrhea, Flatus. Denies: Nausea, Vomiting Genitourinary: Reports: No Symptoms. Denies: Frequency Musculoskeletal: Reports: No Symptoms Skin: Reports: No Symptoms Neurological: Reports: No Symptoms Psychiatric: Reports: No Symptoms - Patient Data Vitals - Most Recent: Last Vital Signs Temp 98.0 F 09/28/20 08:37 Pulse 48 L 09/28/20 08:37 Resp 16 09/28/20 08:37 BP 127/65 09/28/20 08:37 Pulse Ox 100 09/28/20 08:37 Weight - Most Recent: 52.254 kg I&O - Last 24 Hours: Intake & Output 09/27/20 09/28/20 09/28/20 22:59 06:59 14:59 Intake Total 1994 1199 Output Total 1899 1700 Balance 95 -500 Lab Results Last 24 Hours: Laboratory Results - last 24 hr 09/28/20 09/28/20 Range/Units 04:48 04:48 WBC 6.93 (4.0-11.0) K/uL RBC 4.48 (4.30-5.90) M/uL Hgb 10.0 L (12.0-16.0) g/dL Hct 32.0 L (36.0-46.0) % MCV 71.4 L (80.0-98.0) fL MCH 22.3 L (27.0-32.0) pg MCHC 31.3 (31.0-37.0) g/dL RDW Std Deviation 41.3 (28.0-62.0) fl RDW Coeff of Buck 16 H (11.0-15.0) % Plt Count 475 H (150-400) K/uL MPV 10.90 (7.40-12.00) fL Neut % (Auto) 73.1 (48.0-80.0) % Lymph % (Auto) 17.5 (16.0-40.0) % [place] % (Auto) 9.4 (0.0-15.0) % Eos % (Auto) 0.0 (0.0-7.0) % Baso % (Auto) 0.0 (0.0-1.5) % Neut # (Auto) 5.1 (1.4-5.7) K/uL Lymph # (Auto) 1.2 (0.6-2.4) K/uL [place] # (Auto) 0.7 (0.0-0.8) K/uL Eos # (Auto) 0.0 (0.0-0.7) K/uL Baso # (Auto) 0.0 (0.0-0.1) K/uL Nucleated RBC % 0.0 /100WBC Nucleated RBCs # 0 K/uL Sodium 136 (136-145) mmol/L Potassium 4.0 (3.5-5.1) mmol/L Chloride 103 (98-107) mmol/L Carbon Dioxide 28.1 (21.0-32.0) mmol/L BUN 10 (7.0-18.0) mg/dL Creatinine 0.7 (0.6-1.0) mg/dL Est Cr Clr Drug Dosing 103.99 mL/min Estimated GFR (MDRD) > 60.0 ml/min Glucose 109 H (74-106) mg/dL Calcium 8.7 (8.5-10.1) mg/dL Magnesium 1.9 (1.8-2.4) mg/dL Rohit Results Last 24 Hours: Microbiology 09/25/20 10:50 Stool Culture - Preliminary Stool / Feces Shiga Toxin I & II - Final Med Orders - Current: Current Medications Albuterol/Ipratropium (Albuterol/Ipratropium 3.0-0.5 Mg/3 Ml Neb Soln) 3 ml NEB Q4HRRT PRN PRN Reason: Shortness Of Breath/wheezing Pantoprazole Sodium 40 mg/ (Sodium Chloride) 10 mls @ 300 mls/hr IV Q24H DONNIE Last Admin: 09/27/20 21:09 Dose: 300 mls/hr Documented by: Ondansetron HCl (Ondansetron 4 Mg/2 Ml Sdv) 4 mg IVPUSH Q4H PRN PRN Reason: Nausea/Vomiting Last Admin: 09/27/20 10:18 Dose: 4 mg Documented by: Oxycodone HCl (Oxycodone 5 Mg Tab) 10 mg PO Q6H PRN PRN Reason: Pain Last Admin: 09/28/20 08:15 Dose: 10 mg Documented by: Prednisone (Prednisone 20 Mg Tab) 40 mg PO WITHBREAKFAST [facility] Sodium Chloride (Sodium Chloride 0.9% 10 Ml Syringe) 10 ml FLUSH ASDIRECTED PRN PRN Reason: Keep Vein Open Sodium Chloride (Sodium Chloride 0.9% 2.5 Ml Syringe) 2.5 ml FLUSH ASDIRECTED PRN PRN Reason: Keep Vein Open Discontinued Medications Hydromorphone HCl (Hydromorphone 1 Mg/Ml Syringe) 0.5 mg IVPUSH Q3H PRN PRN Reason: Pain Last Admin: 09/25/20 13:53 Dose: 0.5 mg Documented by: Hydromorphone HCl (Hydromorphone 1 Mg/Ml Syringe) 0.5 mg IVPUSH Q3H PRN PRN Reason: Abdominal Pain Last Admin: 09/27/20 10:18 Dose: 0.5 mg Documented by: Hydromorphone HCl (Hydromorphone 1 Mg/Ml Syringe) 0.5 mg IVPUSH Q4H PRN PRN Reason: Abdominal Pain Last Admin: 09/27/20 23:49 Dose: 0.5 mg Documented by: Lactated Ringer's (Ringers, Lactated) 1,000 mls @ 999 mls/hr IV .BOLUS ONE Stop: 09/23/20 22:12 Last Admin: 09/23/20 21:20 Dose: 999 mls/hr Documented by: Pantoprazole Sodium 40 mg/ (Sodium Chloride) 20 mls @ 420 mls/hr IVPUSH ONETIME ONE Stop: 09/24/20 00:48 Last Admin: 09/24/20 01:25 Dose: 420 mls/hr Documented by: Lactated Ringer's (Ringers, Lactated) 1,000 mls @ 125 mls/hr IV ASDIRECTED [facility] Last Admin: 09/27/20 14:00 Dose: 125 mls/hr Documented by: Magnesium Sulfate 2 gm/ Premix 50 mls @ 50 mls/hr IV ONETIME ONE Stop: 09/25/20 10:11 Last Admin: 09/25/20 10:20 Dose: 50 mls/hr Documented by: Magnesium Sulfate 4 gm/ Premix 100 mls @ 33.333 mls/hr IV ONETIME ONE Stop: 09/26/20 13:27 Last Admin: 09/26/20 10:54 Dose: 33.333 mls/hr Documented by: Iopamidol (Iopamidol 755 Mg/Ml 500 Ml Multipack Bottle) 75 ml IVPUSH ONETIME STA Stop: 09/23/20 23:15 Last Admin: 09/23/20 23:15 Dose: 75 ml Documented by: Methylprednisolone Sodium Succinate (Methylprednisolone Sodium Succinate 125 Mg/2 Ml Sdv) 125 mg IVPUSH ONETIME ONE Stop: 09/24/20 00:48 Last Admin: 09/24/20 01:25 Dose: 125 mg Documented by: Methylprednisolone Sodium Succinate (Methylprednisolone Sodium Succinate 40 Mg/1 Ml Sdv) 40 mg IVPUSH Q8H [facility] Last Admin: 09/28/20 08:14 Dose: 40 mg Documented by: Morphine Sulfate (Morphine 4 Mg/Ml Syringe) 4 mg IVPUSH ONETIME ONE Stop: 09/23/20 21:13 Last Admin: 09/23/20 21:23 Dose: 4 mg Documented by: Morphine Sulfate (Morphine 4 Mg/Ml Syringe) 4 mg IVPUSH ONETIME ONE Stop: 09/23/20 21:55 Last Admin: 09/23/20 22:33 Dose: 4 mg Documented by: Morphine Sulfate (Morphine 4 Mg/Ml Syringe) 4 mg IVPUSH ONETIME ONE Stop: 09/23/20 23:18 Last Admin: 09/23/20 23:33 Dose: 4 mg Documented by: Morphine Sulfate (Morphine 2 Mg/Ml Syringe) 2 mg IVPUSH Q2H PRN PRN Reason: Pain Last Admin: 09/24/20 09:26 Dose: 2 mg Documented by: Ondansetron HCl (Ondansetron 4 Mg/2 Ml Sdv) 4 mg IVPUSH ONETIME ONE Stop: 09/23/20 21:13 Last Admin: 09/23/20 21:22 Dose: 4 mg Documented by: Ondansetron HCl (Ondansetron 4 Mg Tab.Dis) 4 mg PO ONETIME ONE Stop: 09/23/20 23:18 Last Admin: 09/23/20 23:26 Dose: Not Given Documented by: Ondansetron HCl (Ondansetron 4 Mg/2 Ml Sdv) 4 mg IVPUSH ONETIME ONE Stop: 09/23/20 23:27 Last Admin: 09/23/20 23:32 Dose: 4 mg Documented by: Oxycodone HCl (Oxycodone 5 Mg Tab) 5 mg PO Q4H PRN PRN Reason: Pain Last Admin: 09/26/20 05:26 Dose: 5 mg Documented by: - Exam Quality Assessment: DVT Prophylaxis. No: Supplemental Oxygen General: Alert, Oriented, Cooperative, No Acute Distress Lungs: Clear to Auscultation, Normal Respiratory Effort Cardiovascular: Regular Rate, Regular Rhythm GI/Abdominal Exam: Normal Bowel Sounds, Soft, Non-Tender, Other (Ileostomy with yellow to light brown stool present with flatus present in bag as well. Healing abdominal incisions noted scabbing noted no open regions.) Extremities: Normal Inspection, Normal Range of Motion, Non-Tender, No Pedal Edema Neurological: No New Focal Deficit Psy/Mental Status: Alert, Normal Affect, Normal Mood - Patient Data Lab Results Last 24 hrs: Laboratory Results - last 24 hr 09/28/20 09/28/20 Range/Units 04:48 04:48 WBC 6.93 (4.0-11.0) K/uL RBC 4.48 (4.30-5.90) M/uL Hgb 10.0 L (12.0-16.0) g/dL Hct 32.0 L (36.0-46.0) % MCV 71.4 L (80.0-98.0) fL MCH 22.3 L (27.0-32.0) pg MCHC 31.3 (31.0-37.0) g/dL RDW Std Deviation 41.3 (28.0-62.0) fl RDW Coeff of Buck 16 H (11.0-15.0) % Plt Count 475 H (150-400) K/uL MPV 10.90 (7.40-12.00) fL Neut % (Auto) 73.1 (48.0-80.0) % Lymph % (Auto) 17.5 (16.0-40.0) % [place] % (Auto) 9.4 (0.0-15.0) % Eos % (Auto) 0.0 (0.0-7.0) % Baso % (Auto) 0.0 (0.0-1.5) % Neut # (Auto) 5.1 (1.4-5.7) K/uL Lymph # (Auto) 1.2 (0.6-2.4) K/uL [place] # (Auto) 0.7 (0.0-0.8) K/uL Eos # (Auto) 0.0 (0.0-0.7) K/uL Baso # (Auto) 0.0 (0.0-0.1) K/uL Nucleated RBC % 0.0 /100WBC Nucleated RBCs # 0 K/uL Sodium 136 (136-145) mmol/L Potassium 4.0 (3.5-5.1) mmol/L Chloride 103 (98-107) mmol/L Carbon Dioxide 28.1 (21.0-32.0) mmol/L BUN 10 (7.0-18.0) mg/dL Creatinine 0.7 (0.6-1.0) mg/dL Est Cr Clr Drug Dosing 103.99 mL/min Estimated GFR (MDRD) > 60.0 ml/min Glucose 109 H (74-106) mg/dL Calcium 8.7 (8.5-10.1) mg/dL Magnesium 1.9 (1.8-2.4) mg/dL Result Diagrams: 09/28/20 04:48 09/28/20 04:48 Rohit Results Last 24 hrs: Microbiology 09/25/20 10:50 Stool Culture - Preliminary Stool / Feces Shiga Toxin I & II - Final Sepsis Event Note - Evaluation Sepsis Screening Result: No Definite Risk - Focused Exam Vital Signs: Vital Signs Temp Temp Pulse Resp BP Pulse Ox 09/28/20 08:37 98.0 F 48 L 16 127/65 100 09/28/20 04:12 97.7 F 51 L 16 117/55 L 98 09/28/20 00:34 97.3 F 51 L 17 101/49 L 99 - Problem List & Annotations (1) Ulcerative colitis SNOMED Code(s): 79205199 Code(s): K51.90 - ULCERATIVE COLITIS, UNSPECIFIED, WITHOUT COMPLICATIONS Status: Chronic Current Visit: Yes Qualifiers: Ulcerative colitis location: ulcerative pancolitis Digestive disease complication type: with rectal bleeding Qualified Code(s): K51.011 - Ulcerative (chronic) pancolitis with rectal bleeding (2) Abdominal pain SNOMED Code(s): 03249408 Code(s): R10.9 - UNSPECIFIED ABDOMINAL PAIN Status: Acute Current Visit: No (3) Anemia SNOMED Code(s): 493429921 Code(s): D64.9 - ANEMIA, UNSPECIFIED Status: Acute Current Visit: No (4) Ileostomy present SNOMED Code(s): 860517068 Code(s): Z93.2 - ILEOSTOMY STATUS Status: Chronic Current Visit: No - Problem List Review Problem List Initiated/Reviewed/Updated: Yes - My Orders Last 24 Hours: My Active Orders 09/27/20 12:45 oxyCODONE 10 mg PO Q6H PRN 09/27/20 12:46 Patient Status [ADT] Stat 09/29/20 05:11 BASIC METABOLIC PANEL,BMP [CHEM] AM CBC WITH AUTO DIFF [HEME] AM MAGNESIUM [CHEM] AM 09/29/20 08:00 predniSONE 40 mg PO WITHBREAKFAST - Plan Plan:: 20-year-old female admitted for ulcerative colitis flare 1. UC flare -We will discontinue Dilaudid today -Transition to prednisone 40 mg p.o. daily today and monitor ability to tolerate this -Tolerating soft diet we will keep that this for her to slowly advance as outpatient. -No active acute bleeding noted -All stool cultures including C. difficile negative no white count no fever no infectious source suspected at this time -Continue oxycodone 10 mg every 6 hours as needed pain ng - IV Zofran as needed for nausea vomiting - Continue supportive care -Monitor and replete electrolytes as necessary -Continue to monitor ileostomy output goal is for at least 400 over 24 hours. VTE prophylaxis: SCDs and ambulation GI prophylaxis: Protonix CODE STATUS: Full code Dispo: Likely home discharge if patient able to tolerate oxycodone and prednisone..
[2020-09-28] MEDS: Pantoprazole 40 MG in Sodium Chloride 0.9% 10 ML IV SCH (20:37)
[2020-09-29] MEDS: oxyCODONE 5 MG Tab PO PRN ×2 (03:28→09:31)
[2020-09-29 05:48] LABS: BLOOD UREA NITROGEN,BUN 12 mg/dL (7.0-18.0); CARBON DIOXIDE,CO2 28.8 mmol/L (21.0-32.0); CHLORIDE,CL 104 mmol/L (98-107); GLUCOSE RANDOM 91 mg/dL (74-106); POTASSIUM,K 3.3 mmol/L (3.5-5.1); SODIUM,NA 139 mmol/L (136-145)
[2020-09-29] MEDS ORDERED: predniSONE 20 MG Tab PO SCH (08:00)
--- NOTE | 2020-09-29 10:43 | PCM.DCSUM1 ---
Discharge Summary - Hospital Course Brief History: 19-year-old female with a history of IBD s/p colectomy (with preservation of rectum), colostomy bag, who presents today for diffuse abdominal pain. Patient states that she got her procedure done at [facility] in August 2019 and has been doing well. She was supposed to get her reversal done in January 2020 but couldn't get it done due to insurance lapse. Patient states that over last few days she has been having increasing pain, and some nausea. Patient denies having any overt diarrhea, bloody stools. States that she has some off-and-on discharge from her rectum which looks like applesauce and has had it since after the surgery. CT scan was performed in the ER which showed s/p right lower quadrant colostomy with rectal suture line, prominent wall thickening and inflammation surrounding the rectosigmoid consistent with a colitis/proctitis. Adjacent free fluid without drainable abscess noted, patient was admitted for further management. - Discharge Data Discharge Date: 09/29/20 Discharge Disposition: Home, Self-Care 01 Condition: Good - Referral to Home Health Primary Care Physician: Roddy Allen MD - Discharge Diagnosis/Problem(s) (1) Ulcerative colitis SNOMED Code(s): 15575832 ICD Code: K51.90 - ULCERATIVE COLITIS, UNSPECIFIED, WITHOUT COMPLICATIONS Status: Chronic Current Visit: Yes Qualifiers: Ulcerative colitis location: ulcerative pancolitis Digestive disease complication type: with rectal bleeding Qualified Code(s): K51.011 - Ulcerative (chronic) pancolitis with rectal bleeding (2) Abdominal pain SNOMED Code(s): 19106041 ICD Code: R10.9 - UNSPECIFIED ABDOMINAL PAIN Status: Acute Current Visit: No (3) Anemia SNOMED Code(s): 192814611 ICD Code: D64.9 - ANEMIA, UNSPECIFIED Status: Acute Current Visit: No (4) Ileostomy present SNOMED Code(s): 478886325 ICD Code: Z93.2 - ILEOSTOMY STATUS Status: Chronic Current Visit: No - Patient Summary/Data Hospital Course: Admission diagnoses: Ulcerative colitis flare Abdominal pain Discharge diagnoses Ulcerative colitis flare Abdominal pain improved CR was admitted secondary to abdominal pain and suspected ulcerative colitis flare. She was started on IV Solu-Medrol 40 mg 3 times daily. She was given pain medications along with antiemetics. Stool cultures obtained which were negative for Shigella E. coli Campylobacter as well as C. difficile. No infectious source suspected so no antibiotics were started. Patient was slowly started on clear liquid diet and advance to soft. Patient continues to have intermittent abdominal pain but is tolerating diet well continues to have at least 400 mL out of her ostomy bag daily and is feeling much improved. She will be continued on a long taper of prednisone 40 mg for total of 1 week dropping to 20 mg for another week and then 10 mg for another week. She was given oxycodone 20 tabs 10 mg every 6 hours as needed pain. She is also given work note to return to work next 10/04/2020. She is to follow-up with PCP in the next coming days as well as continue with follow-up with surgeon at [facility] [place]. She is to return to the ER clinic if concerns should arise sooner. - Patient Instructions Diet: GI Soft/Low Residue/Low Fiber Activity: As Tolerated, No Strenuous Activities Showering/Bathing: May Shower Notify Provider of: Fever, Increased Pain, Swelling and Redness, Drainage, Nausea and/or Vomiting - Discharge Plan *PRESCRIPTION DRUG MONITORING PROGRAM REVIEWED*: Not Applicable *COPY OF PRESCRIPTION DRUG MONITORING REPORT IN PATIENT MEJIA: Not Applicable Prescriptions/Med Rec: oxyCODONE 10 mg PO Q6H PRN #20 tablet PRN Reason: Pain predniSONE 40 mg PO WITHBREAKFAST #25 tablet Home Medications: Home Meds Sulfamethoxazole/Trimethoprim [Bactrim 400-80 MG] 1 tab PO BID 09/23/20 [History] oxyCODONE 10 mg PO Q6H PRN #20 tablet 09/29/20 [Rx] predniSONE 40 mg PO WITHBREAKFAST #25 tablet 09/29/20 [Rx] Oxygen Therapy Mode: Room Air Patient Handouts: Oxycodone tablets or capsules, Abdominal Pain, Adult, [id number], Colitis, Prednisone tablets Referrals: Roddy Allen MD [Primary Care Provider] - 10/04/20 10:00 am - Discharge Summary/Plan Comment DC Time >30 min.: No - Patient Data Vitals - Most Recent: Last Vital Signs Temp 97.0 F 09/29/20 07:42 Pulse 78 09/29/20 07:42 Resp 16 09/29/20 07:42 BP 107/60 09/29/20 07:42 Pulse Ox 98 09/29/20 07:42 Weight - Most Recent: 52.254 kg I&O - Last 24 hours: Intake & Output 09/28/20 09/29/20 09/29/20 22:59 06:59 14:59 Intake Total 1000 1000 Output Total 1999 1450 Balance -1000 -450 Lab Results - Last 24 hrs: Laboratory Results - last 24 hr 09/29/20 09/29/20 Range/Units 05:03 05:03 WBC 10.72 (4.0-11.0) K/uL RBC 4.35 (4.30-5.90) M/uL Hgb 9.8 L (12.0-16.0) g/dL Hct 31.3 L (36.0-46.0) % MCV 72.0 L (80.0-98.0) fL MCH 22.5 L (27.0-32.0) pg MCHC 31.3 (31.0-37.0) g/dL RDW Std Deviation 41.9 (28.0-62.0) fl RDW Coeff of Buck 16 H (11.0-15.0) % Plt Count 484 H (150-400) K/uL MPV 10.50 (7.40-12.00) fL Neut % (Auto) 45.2 L (48.0-80.0) % Lymph % (Auto) 37.2 (16.0-40.0) % [place] % (Auto) 16.5 H (0.0-15.0) % Eos % (Auto) 1.0 (0.0-7.0) % Baso % (Auto) 0.1 (0.0-1.5) % Neut # (Auto) 4.8 (1.4-5.7) K/uL Lymph # (Auto) 4.0 H (0.6-2.4) K/uL [place] # (Auto) 1.8 H (0.0-0.8) K/uL Eos # (Auto) 0.1 (0.0-0.7) K/uL Baso # (Auto) 0.0 (0.0-0.1) K/uL Nucleated RBC % 0.0 /100WBC Nucleated RBCs # 0 K/uL Sodium 139 (136-145) mmol/L Potassium 3.3 L (3.5-5.1) mmol/L Chloride 104 (98-107) mmol/L Carbon Dioxide 28.8 (21.0-32.0) mmol/L BUN 12 (7.0-18.0) mg/dL Creatinine 0.8 (0.6-1.0) mg/dL Est Cr Clr Drug Dosing 90.99 mL/min Estimated GFR (MDRD) > 60.0 ml/min Glucose 91 (74-106) mg/dL Calcium 8.0 L (8.5-10.1) mg/dL Magnesium 1.7 L (1.8-2.4) mg/dL JERO Results - Last 24 hrs: Microbiology 09/25/20 10:50 Stool Culture - Final Stool / Feces Shiga Toxin I & II - Final Med Orders - Current: Current Medications Albuterol/Ipratropium (Albuterol/Ipratropium 3.0-0.5 Mg/3 Ml Neb Soln) 3 ml NEB Q4HRRT PRN PRN Reason: Shortness Of Breath/wheezing Pantoprazole Sodium 40 mg/ (Sodium Chloride) 10 mls @ 300 mls/hr IV Q24H DONNIE Last Admin: 09/28/20 20:37 Dose: 300 mls/hr Documented by: Ondansetron HCl (Ondansetron 4 Mg/2 Ml Sdv) 4 mg IVPUSH Q4H PRN PRN Reason: Nausea/Vomiting Last Admin: 09/27/20 10:18 Dose: 4 mg Documented by: Oxycodone HCl (Oxycodone 5 Mg Tab) 10 mg PO Q6H PRN PRN Reason: Pain Last Admin: 09/29/20 09:31 Dose: 10 mg Documented by: Prednisone (Prednisone 20 Mg Tab) 40 mg PO WITHBREAKFAST DONNIE Last Admin: 09/29/20 07:55 Dose: 40 mg Documented by: Sodium Chloride (Sodium Chloride 0.9% 10 Ml Syringe) 10 ml FLUSH ASDIRECTED PRN PRN Reason: Keep Vein Open Sodium Chloride (Sodium Chloride 0.9% 2.5 Ml Syringe) 2.5 ml FLUSH ASDIRECTED PRN PRN Reason: Keep Vein Open Discontinued Medications Hydromorphone HCl (Hydromorphone 1 Mg/Ml Syringe) 0.5 mg IVPUSH Q3H PRN PRN Reason: Pain Last Admin: 09/25/20 13:53 Dose: 0.5 mg Documented by: Hydromorphone HCl (Hydromorphone 1 Mg/Ml Syringe) 0.5 mg IVPUSH Q3H PRN PRN Reason: Abdominal Pain Last Admin: 09/27/20 10:18 Dose: 0.5 mg Documented by: Hydromorphone HCl (Hydromorphone 1 Mg/Ml Syringe) 0.5 mg IVPUSH Q4H PRN PRN Reason: Abdominal Pain Last Admin: 09/27/20 23:49 Dose: 0.5 mg Documented by: Lactated Ringer's (Ringers, Lactated) 1,000 mls @ 999 mls/hr IV .BOLUS ONE Stop: 09/23/20 22:12 Last Admin: 09/23/20 21:20 Dose: 999 mls/hr Documented by: Pantoprazole Sodium 40 mg/ (Sodium Chloride) 20 mls @ 420 mls/hr IVPUSH ONETIME ONE Stop: 09/24/20 00:48 Last Admin: 09/24/20 01:25 Dose: 420 mls/hr Documented by: Lactated Ringer's (Ringers, Lactated) 1,000 mls @ 125 mls/hr IV ASDIRECTED [facility] Last Admin: 09/27/20 14:00 Dose: 125 mls/hr Documented by: Magnesium Sulfate 2 gm/ Premix 50 mls @ 50 mls/hr IV ONETIME ONE Stop: 09/25/20 10:11 Last Admin: 09/25/20 10:20 Dose: 50 mls/hr Documented by: Magnesium Sulfate 4 gm/ Premix 100 mls @ 33.333 mls/hr IV ONETIME ONE Stop: 09/26/20 13:27 Last Admin: 09/26/20 10:54 Dose: 33.333 mls/hr Documented by: Iopamidol (Iopamidol 755 Mg/Ml 500 Ml Multipack Bottle) 75 ml IVPUSH ONETIME STA Stop: 09/23/20 23:15 Last Admin: 09/23/20 23:15 Dose: 75 ml Documented by: Methylprednisolone Sodium Succinate (Methylprednisolone Sodium Succinate 125 Mg/2 Ml Sdv) 125 mg IVPUSH ONETIME ONE Stop: 09/24/20 00:48 Last Admin: 09/24/20 01:25 Dose: 125 mg Documented by: Methylprednisolone Sodium Succinate (Methylprednisolone Sodium Succinate 40 Mg/1 Ml Sdv) 40 mg IVPUSH Q8H DONNIE Last Admin: 09/28/20 08:14 Dose: 40 mg Documented by: Morphine Sulfate (Morphine 4 Mg/Ml Syringe) 4 mg IVPUSH ONETIME ONE Stop: 09/23/20 21:13 Last Admin: 09/23/20 21:23 Dose: 4 mg Documented by: Morphine Sulfate (Morphine 4 Mg/Ml Syringe) 4 mg IVPUSH ONETIME ONE Stop: 09/23/20 21:55 Last Admin: 09/23/20 22:33 Dose: 4 mg Documented by: Morphine Sulfate (Morphine 4 Mg/Ml Syringe) 4 mg IVPUSH ONETIME ONE Stop: 09/23/20 23:18 Last Admin: 09/23/20 23:33 Dose: 4 mg Documented by: Morphine Sulfate (Morphine 2 Mg/Ml Syringe) 2 mg IVPUSH Q2H PRN PRN Reason: Pain Last Admin: 09/24/20 09:26 Dose: 2 mg Documented by: Ondansetron HCl (Ondansetron 4 Mg/2 Ml Sdv) 4 mg IVPUSH ONETIME ONE Stop: 09/23/20 21:13 Last Admin: 09/23/20 21:22 Dose: 4 mg Documented by: Ondansetron HCl (Ondansetron 4 Mg Tab.Dis) 4 mg PO ONETIME ONE Stop: 09/23/20 23:18 Last Admin: 09/23/20 23:26 Dose: Not Given Documented by: Ondansetron HCl (Ondansetron 4 Mg/2 Ml Sdv) 4 mg IVPUSH ONETIME ONE Stop: 09/23/20 23:27 Last Admin: 09/23/20 23:32 Dose: 4 mg Documented by: Oxycodone HCl (Oxycodone 5 Mg Tab) 5 mg PO Q4H PRN PRN Reason: Pain Last Admin: 09/26/20 05:26 Dose: 5 mg Documented by: - Exam General: Reports: Alert, Oriented Lungs: Reports: Clear to Auscultation, Normal Respiratory Effort Cardiovascular: Reports: Regular Rate, Regular Rhythm GI/Abdominal Exam: Normal Bowel Sounds, Soft, Non-Tender Extremities: Normal Inspection, Normal Range of Motion, Non-Tender, No Pedal Edema Neurological: Reports: No New Focal Deficit Psy/Mental Status: Reports: Alert, Normal Affect, Normal Mood
== END 2020-09-29 12:40 | disposition home or self-care (01) | DRG 387 ==
LOC: MW.ED 20:44 → MW.MS 09-24 00:48 → OBSVTOIN 09-24 12:46 → INTOOBSV 09-24 12:46 → OBSVTOIN 09-27 12:46 → MW.MS 09-27 12:47
PROVIDERS: ADMIT Student in an Organized Health Care Education/Training Program; ATTEND Student in an Organized Health Care Education/Training Program
DX: K51.011 Ulcerative (chronic) pancolitis with rectal bleeding (principal); D64.9 Anemia, unspecified; Z20.822 Contact with and (suspected) exposure to COVID-19; Z86.19 Personal history of other infectious and parasitic diseases; Z93.2 Ileostomy status
CPT/HCPCS: 36415; 74177; 74177-26; 80048; 80053; 81001; 81025; 82947; 83605; 83690; 83735; 84100; 85025; 87045; 87046; 87324; 87449; 87899; 96365; 96366; 96374; 96375; 96376; 99285-25; A9270-GY; C9113; G0378; J1170; J2270; J2405; J2920; J2930; J3475; J7120; Q9967; U0002

== ENCOUNTER 2020-11-21 19:03 | Emergency (ER) | payer MEDICAID ==
[2020-11-21] MEDS ORDERED: Sodium Chloride 0.9% 2.5 ML Syringe FLUSH PRN (22:49)
[2020-11-21] MEDS ORDERED: Sodium Chloride 0.9% 1,000 ML IV ONE (22:49)
[2020-11-21] MEDS ORDERED: Sodium Chloride 0.9% 10 ML Syringe FLUSH PRN (22:49)
[2020-11-21] MEDS ORDERED: Ondansetron 4 MG/2 ML SDV IVPUSH ONE (22:49)
[2020-11-22] MEDS ORDERED: Ketorolac 30 MG/ML SDV IM ONE (00:45)
[2020-11-22] MEDS ORDERED: fentaNYL 50 MCG/ML SDV IVPUSH ONE (01:41)
--- NOTE | 2020-11-22 01:41 | PCM.PRNOTE ---
- Free Text/Narrative Note: Anes Note IV Access. I was called to ER to provide IV access for this patient with difficult veins. A 22TN was placed in the right wrist area. THreaded with ease. Flushes with ease. Time with patient [id number]. Timur Tobin SERVICE TRAINER
[2020-11-22] MEDS ORDERED: Ondansetron 4 MG/2 ML SDV IVPUSH ONE (01:42)
[2020-11-22 02:15] LABS: BLOOD UREA NITROGEN,BUN 10 mg/dL (7.0-18.0); CARBON DIOXIDE,CO2 23.8 mmol/L (21.0-32.0); CHLORIDE,CL 105 mmol/L (98-107); GLUCOSE RANDOM 75 mg/dL (74-106); LIPASE 65 U/L (73-393); SODIUM,NA 139 mmol/L (136-145)
[2020-11-22] MEDS ORDERED: Iopamidol 755 Mg/ML 100 ML Bottle IVPUSH ONE (02:31)
--- NOTE | 2020-11-22 03:35 | CT ---
INDICATION: Abdominal and rectal pain. COMPARISON: CT of the abdomen pelvis with contrast from 09/23/2020 TECHNIQUE: CT examination of the abdomen and pelvis was performed with the uneventful intravenous administration of 100 cc of Isovue 370 while 2.5 mm thick axial sections were obtained from the lung bases through the pubic symphysis. Oral contrast was not administered. Please note that all CT scans at this facility use dose modulation, iterative reconstruction, and/or weight-based dosing when appropriate to reduce radiation dose to as low as reasonably achievable. FINDINGS: Again seen are changes of total colectomy with a right upper anterior pelvic wall ileostomy site. There is no sign of dilatation of the small bowel to suggest obstruction. In the abdomen, the liver, spleen, pancreas, and adrenals are normal in appearance. There is a stable nonobstructive at 3 millimeter calculus in the lower pole of the left kidney. There is no sign of any renal calculus on the right. The kidneys are otherwise normal in appearance. The gallbladder is normal in appearance. The abdominal aorta is normal in caliber with no sign of dilatation. There is no sign of retroperitoneal mass or adenopathy. The stomach and loops of small bowel in the abdomen are normal in appearance. The loops of small bowel in the pelvis are normal in appearance. Again seen is a suture line in the distal rectum. The rectum is slightly increasingly distended with fluid, now measuring up to 5.2 centimeters in diameter previously up to 4.8 centimeters in diameter. But the previously seen moderate thickening of the wall of the rectum has resolved. The uterus remains moderately deviated towards the right. The adnexal regions are normal in appearance. The urinary bladder is normal in appearance. There is no sign of pelvic or inguinal mass or adenopathy. There is no sign of free air or free fluid in the abdomen or pelvis. The lung bases are clear. The osseous structures are normal in appearance for the patient`s age. IMPRESSION: Again seen are changes of total colectomy with satisfactory appearance of a right upper anterior pelvic wall ileostomy site. CT of the pelvis shows increasing fluid distention of the rectal stump, now measuring up to 5.2 centimeters in diameter, previously 4.8 centimeters. The previously seen inflammatory thickening of the wall of the rectum has resolved however. CT of the abdomen shows no additional abnormality. Please note that all CT scans at this facility use dose modulation, iterative reconstruction, and/or weight-based dosing when appropriate to reduce radiation dose to as low as reasonably achievable. Dictated by Rory Sterling MD @ 11/22/2020 3:33:44 AM (Electronically Signed)
[2020-11-22] MEDS ORDERED: Potassium Chloride 10% 20 MEQ/15 ML Soln 30 ML UD Cup PO ONE (03:55)
--- NOTE | 2020-11-22 03:57 | EDM.PDOC ---
ED HPI GENERAL MEDICAL PROBLEM - General Chief Complaint: Abdominal Pain Stated Complaint: ABDOMINAL PAIN Time Seen by Provider: 11/22/20 02:51 - History of Present Illness INITIAL COMMENTS - FREE TEXT/NARRATIVE: HISTORY AND PHYSICAL: History of present illness: This is a 20-year-old female with history significant for ulcerative colitis who presents ER today complaining of abdominal pain and rectal pain times several days. Patient denies any recent fevers, shakes, chills, nausea, vomiting. Patient has an ileostomy and reports normal stool output. Patient denies any blood in her stool. Patient denies any urinary complaints. Patient has any dysuria, frequency, urgency. Patient reports she been tolerating p.o. solids and liquids well. Patient reports that she had some increased mucus from her rectum. Patient reports that she had a J-pouch placed approximately 1/2 years ago back in August 2019. Patient reports that she had a total bowel resection prior to that and she is scheduled next year to have reanastomosis of her colon. Patient reports that she has been able to tolerate p.o. liquids and solids without any difficulty. Review of systems: As per history of present illness and below otherwise all systems reviewed and negative. Past medical history: As per history of present illness and as reviewed below otherwise noncontributory. Surgical history: As per history of present illness and as reviewed below otherwise noncontributory. Social history: No reported history of drug abuse. Family history: As per history of present illness and as reviewed below otherwise noncontributory. Physical exam: This patient was seen and evaluated during the 2019 SARS-CoV-2 novel coronavirus pandemic period. Community viral transmission is ongoing at time of this encounter and the emergency department is operating under pandemic response procedures. Constitutional: Patient is oriented to person, place, and time. Appears well- developed and well-nourished. No distress. HEENT: Moist mucous membranes Head: Normocephalic and atraumatic Eyes: Right eye exhibits no discharge. Left eye exhibits no discharge. No scleral icterus Neck: Normal range of motion. No tracheal deviation present. Cardiovascular: Normal rate and regular rhythm. Pulmonary: Effort normal, no respiratory distress. Abd: Soft, nondistended, no rebound/guarding, no psoas or obturator signs, no tenderness at Mcberney's point, no Salcido's sign. Pt does not present with an exam that would be consistent with an acute surgical abdomen at this time. Mild tenderness palpation to the midepigastric region. Musculoskeletal: Normal range of motion Neurologic: Alert and oriented to person, place and time. Skin: [place], warm and dry. Psychiatric: Normal mood and affect. Behavior is normal. Judgment and thought content normal. Nursing note and vital signs have been reviewed Rectum: No palpable masses, bleeding, discharge. Diagnostics: [] Therapeutics: [] Assessment and plan: 20-year-old female who presents to the ER today secondary to abdominal pain and rectal pain. Patient has CT scan of her abdomen pelvis with IV contrast which revealed no significant pathology. Patient had decreased thickening of the wall around her rectum. Patient does have some fluid around the rectal pouch. Patient is labs are all within normal limits except for a low potassium level for which she will be given a dose of potassium here in the ED and will be instructed on dietary changes at home to increase her potassium levels through diet. Patient has been given adequate analgesia in the ED and she reports that this time she feels much improved. Patient had multiple repeat exams in the ED by myself and has not developed any worsening symptoms or changes concerning for surgical abdomen. Patient has reiterated multiple times that she does feel better while in the ED after the pain medicines were given. Given that her labs are all within normal limits, her CT scan was unremarkable, and that she generally feels much improved, I feel that the patient will be stable for discharge home with continued outpatient work-up with her primary doctor. I have agreed with the patient that I will write her prescription for pain medicines lasted for couple days until she can see her primary care physician. She is also requesting a work note for Sunday. Reassessment at the time of disposition demonstrates that the patient is in no acute distress. The patient has remained stable throughout the entire ED visit and is without objective evidence for acute process requiring urgent intervention or hospitalization. The patient is stable for discharge, counseling is provided as documented above, discussed symptomatic treatment and specific conditions for return. I have spoken with the patient/caregiver and discussed todays findings, in addition to providing specific details for the plan of care. Questions are answered and there is agreement with the plan. Definitive disposition and diagnosis as appropriate pending reevaluation and review of above. Abdomen Pain Score (Numeric/FACES): 7 - Related Data Allergies Allergy/AdvReac Type Severity Reaction Status Date / Time No Known Allergies Allergy Verified 09/28/20 00:32 Home Meds: Home Meds Sulfamethoxazole/Trimethoprim [Bactrim 400-80 MG] 1 tab PO BID 09/23/20 [History] oxyCODONE 10 mg PO Q6H PRN #20 tablet 09/29/20 [Rx] predniSONE 40 mg PO WITHBREAKFAST #25 tablet 09/29/20 [Rx] Hydrocodone/Acetaminophen [Hydrocodone-Acetamin 5-325 mg] 1 each PO Q6HR PRN #14 tab 11/22/20 [Rx] Ibuprofen 600 mg PO Q6HR PRN #30 tablet 11/22/20 [Rx] Past Medical History - Past Health History Medical/Surgical History: Denies Medical/Surgical History HEENT History: Reports: Other (See Below) Other HEENT History: tonsillitis Cardiovascular History: Reports: None Respiratory History: Reports: None Gastrointestinal History: Reports: Chronic Diarrhea, Inflammatory Bowel Disease, Other (See Below) Other Gastrointestinal History: History of Ulcerative Colitis, colectomy 2020 Genitourinary History: Reports: None 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 HOUSE ATTENDANT 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: 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: Other (See Below) Other FUEL HOUSE ATTENDANT History: Bacterial vaginitis, yeast infection Musculoskeletal History: Reports: None Neurological History: Reports: None Psychiatric History: Reports: ADHD Endocrine/Metabolic History: Reports: None Insulin Pump Model and 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 Total abdominal colectomy with preservation of the rectum and right lower quadrant ileostomy. J pouch 08/19/20 [facility] Female Surgical History: Reports: None - Past Imaging History Past Imaging History: Reports: CAT Scan Social & Family History - Family History Family Medical History: No Pertinent Family History - Tobacco Use Tobacco Use Status *Q: Never Tobacco User - Caffeine Use Caffeine Use: Reports: None Other Caffeine Use: seldom - Recreational Drug Use Recreational Drug Use: No ED ROS GENERAL - Review of Systems Review Of Systems: See Below ED EXAM, GENERAL - Physical Exam Exam: See Below Course - Vital Signs Last Recorded V/S: Last Vital Signs Temp 97.2 F 11/22/20 02:48 Pulse 82 11/22/20 02:48 Resp 15 11/22/20 02:48 BP 100/44 L 11/22/20 02:48 Pulse Ox 99 11/22/20 02:48 - Orders/Labs/Meds Orders: Active Orders 24 hr Category Date Time Status Sodium Chloride 0.9% [Saline Flush] Med 11/21/20 22:49 Active 10 ml FLUSH ASDIRECTED PRN Sodium Chloride 0.9% [Saline Flush] Med 11/21/20 22:49 Active 2.5 ml FLUSH ASDIRECTED PRN Saline Lock Insert [OM.PC] Stat Oth 11/21/20 22:49 Ordered Medication Orders Sodium Chloride (Sodium Chloride 0.9% 10 Ml Syringe) 10 ml FLUSH ASDIRECTED PRN PRN Reason: Keep Vein Open Last Admin: 11/22/20 01:46 Dose: 10 ml Documented by: YOSHI Sodium Chloride (Sodium Chloride 0.9% 2.5 Ml Syringe) 2.5 ml FLUSH ASDIRECTED PRN PRN Reason: Keep Vein Open Last Admin: 11/22/20 01:46 Dose: 2.5 ml Documented by: YOSHI Labs: Laboratory Tests 11/21/20 11/21/20 11/22/20 Range/Units 22:30 22:30 01:44 WBC 7.95 (4.0-11.0) K/uL RBC 4.12 L (4.30-5.90) M/uL Hgb 9.1 L (12.0-16.0) g/dL Hct 29.0 L (36.0-46.0) % MCV 70.4 L (80.0-98.0) fL MCH 22.1 L (27.0-32.0) pg MCHC 31.4 (31.0-37.0) g/dL RDW Std Deviation 43.7 (28.0-62.0) fl RDW Coeff of Buck 17 H (11.0-15.0) % Plt Count 427 H (150-400) K/uL MPV 9.50 (7.40-12.00) fL Neut % (Auto) 47.6 L (48.0-80.0) % Lymph % (Auto) 37.7 (16.0-40.0) % [place] % (Auto) 12.2 (0.0-15.0) % Eos % (Auto) 2.0 (0.0-7.0) % Baso % (Auto) 0.5 (0.0-1.5) % Neut # (Auto) 3.8 (1.4-5.7) K/uL Lymph # (Auto) 3.0 H (0.6-2.4) K/uL [place] # (Auto) 1.0 H (0.0-0.8) K/uL Eos # (Auto) 0.2 (0.0-0.7) K/uL Baso # (Auto) 0.0 (0.0-0.1) K/uL Nucleated RBC % 0.0 /100WBC Nucleated RBCs # 0 K/uL Sodium (136-145) mmol/L Potassium (3.5-5.1) mmol/L Chloride (98-107) mmol/L Carbon Dioxide (21.0-32.0) mmol/L BUN (7.0-18.0) mg/dL Creatinine (0.6-1.0) mg/dL Est Cr Clr Drug Dosing mL/min Estimated GFR (MDRD) ml/min Glucose (74-106) mg/dL Calcium (8.5-10.1) mg/dL Total Bilirubin (0.2-1.0) mg/dL AST (15-37) IU/L ALT (14-63) IU/L Alkaline Phosphatase (46-116) U/L Total Protein (6.4-8.2) g/dL Albumin (3.4-5.0) g/dL Globulin (2.6-4.0) g/dL Albumin/Globulin Ratio (0.9-1.6) Lipase (73-393) U/L Urine Color YELLOW Urine Appearance SLT CLOUDY Urine pH 6.0 (5.0-8.0) Ur Specific [place] >= 1.030 (1.001-1.035) Urine Protein NEGATIVE (NEGATIVE) mg/dL Urine Glucose (UA) NEGATIVE (NEGATIVE) mg/dL Urine Ketones NEGATIVE (NEGATIVE) mg/dL Urine Occult Blood LARGE H (NEGATIVE) Urine Nitrite NEGATIVE (NEGATIVE) Urine Bilirubin NEGATIVE (NEGATIVE) Urine Urobilinogen 0.2 (<2.0) EU/dL Ur Leukocyte Esterase NEGATIVE (NEGATIVE) Urine RBC 5-10 (0-2/HPF) Urine WBC 3-5 (0-5/HPF) Ur Epithelial Cells FEW (NONE-FEW) Urine Bacteria FEW (NEGATIVE) Urine Mucus LIGHT (NONE-MOD) Urine HCG, Qual NEGATIVE (NEGATIVE) 11/22/20 Range/Units 01:44 WBC (4.0-11.0) K/uL RBC (4.30-5.90) M/uL Hgb (12.0-16.0) g/dL Hct (36.0-46.0) % MCV (80.0-98.0) fL MCH (27.0-32.0) pg MCHC (31.0-37.0) g/dL RDW Std Deviation (28.0-62.0) fl RDW Coeff of Buck (11.0-15.0) % Plt Count (150-400) K/uL MPV (7.40-12.00) fL Neut % (Auto) (48.0-80.0) % Lymph % (Auto) (16.0-40.0) % [place] % (Auto) (0.0-15.0) % Eos % (Auto) (0.0-7.0) % Baso % (Auto) (0.0-1.5) % Neut # (Auto) (1.4-5.7) K/uL Lymph # (Auto) (0.6-2.4) K/uL [place] # (Auto) (0.0-0.8) K/uL Eos # (Auto) (0.0-0.7) K/uL Baso # (Auto) (0.0-0.1) K/uL Nucleated RBC % /100WBC Nucleated RBCs # K/uL Sodium 139 (136-145) mmol/L Potassium 3.0 L (3.5-5.1) mmol/L Chloride 105 (98-107) mmol/L Carbon Dioxide 23.8 (21.0-32.0) mmol/L BUN 10 (7.0-18.0) mg/dL Creatinine 0.8 (0.6-1.0) mg/dL Est Cr Clr Drug Dosing 86.88 mL/min Estimated GFR (MDRD) > 60.0 ml/min Glucose 75 (74-106) mg/dL Calcium 8.0 L (8.5-10.1) mg/dL Total Bilirubin 0.3 (0.2-1.0) mg/dL AST 18 (15-37) IU/L ALT 29 (14-63) IU/L Alkaline Phosphatase 92 (46-116) U/L Total Protein 6.9 (6.4-8.2) g/dL Albumin 3.1 L (3.4-5.0) g/dL Globulin 3.8 (2.6-4.0) g/dL Albumin/Globulin Ratio 0.8 L (0.9-1.6) Lipase 65 L (73-393) U/L Urine Color Urine Appearance Urine pH (5.0-8.0) Ur Specific [place] (1.001-1.035) Urine Protein (NEGATIVE) mg/dL Urine Glucose (UA) (NEGATIVE) mg/dL Urine Ketones (NEGATIVE) mg/dL Urine Occult Blood (NEGATIVE) Urine Nitrite (NEGATIVE) Urine Bilirubin (NEGATIVE) Urine Urobilinogen (<2.0) EU/dL Ur Leukocyte Esterase (NEGATIVE) Urine RBC (0-2/HPF) Urine WBC (0-5/HPF) Ur Epithelial Cells (NONE-FEW) Urine Bacteria (NEGATIVE) Urine Mucus (NONE-MOD) Urine HCG, Qual (NEGATIVE) Meds: Medications Generic Name Dose Route Start Last Admin Trade Name Quynh PRN Reason Stop Dose Admin Sodium Chloride 10 ml 11/21/20 22:49 11/22/20 01:46 Sodium Chloride 0.9% 10 Ml Syringe FLUSH 10 ml ASDIRECTED PRN Administration Keep Vein Open Sodium Chloride 2.5 ml 11/21/20 22:49 11/22/20 01:46 Sodium Chloride 0.9% 2.5 Ml Syringe FLUSH 2.5 ml ASDIRECTED PRN Administration Keep Vein Open Discontinued Medications Generic Name Dose Route Start Last Admin Trade Name Freq PRN Reason Stop Dose Admin Fentanyl 100 mcg 11/22/20 01:41 11/22/20 01:46 Fentanyl 50 Mcg/Ml Sdv IVPUSH 11/22/20 01:42 100 mcg ONETIME ONE Administration Sodium Chloride 1,000 mls @ 999 mls/hr 11/21/20 22:49 11/21/20 23:00 Normal Saline IV 11/21/20 23:49 999 mls/hr .Bolus ONE Administration Iopamidol 100 ml 11/22/20 02:31 11/22/20 02:47 Iopamidol 755 Mg/Ml 100 Ml Bottle IVPUSH 11/22/20 02:32 100 ml ONETIME ONE Administration Ketorolac Tromethamine 30 mg 11/22/20 00:45 11/22/20 00:53 Ketorolac 30 Mg/Ml Sdv IM 11/22/20 00:46 30 mg ONETIME ONE Administration Ondansetron HCl 4 mg 11/21/20 22:49 11/21/20 23:00 Ondansetron 4 Mg/2 Ml Sdv IVPUSH 11/21/20 22:50 4 mg ONETIME ONE Administration Ondansetron HCl 4 mg 11/22/20 01:42 11/22/20 01:44 Ondansetron 4 Mg/2 Ml Sdv IVPUSH 11/22/20 01:43 Not Given ONETIME ONE Departure - Departure Time of Disposition: 03:57 Disposition: Home, Self-Care 01 Condition: Good Clinical Impression: Abdominal pain, Hypokalemia - Discharge Information Instructions: Hypokalemia, Abdominal Pain, Adult, [id number] Referrals: Roddy Allen MD [Primary Care Provider] - Additional Instructions: Your seen and evaluated in the ER today secondary to stomach pain. Your blood tests and your CT scan did not reveal any significant pathology. You will be discharged home with prescription for ibuprofen and hydrocodone to help you with your pain. You also be given a prescription for Zofran to assist you with any nausea or vomiting that might develop. Please make an appointment to see your family doctor in the next 1 to 2 days for reevaluation. The following information is given to patients seen in the emergency department who are being discharged to home. This information is to outline your options for follow-up care. We provide all patients seen in our emergency department with a follow-up referral. The need for follow-up, as well as the timing and circumstances, are variable depending upon the specifics of your emergency department visit. If you don't have a primary care physician on staff, we will provide you with a referral. We always advise you to contact your personal physician following an emergency department visit to inform them of the circumstance of the visit and for follow-up with them and/or the need for any referrals to a consulting specialist. The emergency department will also refer you to a specialist when appropriate. This referral assures that you have the opportunity for follow-up care with a specialist. All of these measure are taken in an effort to provide you with optimal care, which includes your follow-up. Under all circumstances we always encourage you to contact your private physician who remains a resource for coordinating your care. When calling for follow-up care, please make the office aware that this follow-up is from your recent emergency room visit. If for any reason you are refused follow-up, please contact the [facility] Emergency Department at and asked to speak to the emergency department charge nurse. [facility] [address] [place] [address] [place] [address] Sepsis Event Note (ED) - Focused Exam Vital Signs: Vital Signs Temp Pulse Resp BP Pulse Ox 11/22/20 02:48 97.2 F 82 15 100/44 L 99 11/21/20 22:26 97.3 F 84 16 118/58 L 97 11/21/20 20:31 97.3 F 99 20 108/77 98 - My Orders Last 24 Hours: My Active Orders 11/21/20 22:49 Sodium Chloride 0.9% [Saline Flush] 10 ml FLUSH ASDIRECTED PRN Sodium Chloride 0.9% [Saline Flush] 2.5 ml FLUSH ASDIRECTED PRN Saline Lock Insert [OM.PC] Stat - Assessment/Plan Last 24 Hours: My Active Orders 11/21/20 22:49 Sodium Chloride 0.9% [Saline Flush] 10 ml FLUSH ASDIRECTED PRN Sodium Chloride 0.9% [Saline Flush] 2.5 ml FLUSH ASDIRECTED PRN Saline Lock Insert [OM.PC] Stat
== END 2020-11-22 04:18 | disposition home or self-care (01) ==
LOC: MW.ED 19:03
DX: R10.13 Epigastric pain (principal); E87.6 Hypokalemia
CPT/HCPCS: 36415; 74177; 80053; 81001; 81025; 83690; 85025; 96372; 96374; 96375; 99284; A9270; J1885; J2405; J3010; J7030; Q9967; 36410

== ENCOUNTER 2021-01-29 09:51 | Emergency (ER) | payer MEDICAID ==
[2021-01-29] MEDS ORDERED: Dexamethasone 10 MG/ML SDV ONE (10:16)
--- NOTE | 2021-01-29 10:20 | EDM.PDOC ---
ED HPI GENERAL MEDICAL PROBLEM - General Chief Complaint: ENT Problem Stated Complaint: COUGH/POSS STREP Time Seen by Provider: 01/29/21 10:03 - History of Present Illness INITIAL COMMENTS - FREE TEXT/NARRATIVE: Otherwise well 20-year-old female presenting with 6 days of sore throat and nonproductive cough. No chest pain or shortness of breath patient reports a negative strep and negative Covid test at the beginning of the week. Significant pain with eating and drinking and swallowing but no difficulty breathing. Some chills but no fevers no neck stiffness no headache. Symptoms constant and moderate worsen with p.o. intake and without alleviating factors radiation or other associated symptoms. 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 [No Known Home Meds] 01/29/21 [History] Past Medical History - Past Health History Medical/Surgical History: Denies Medical/Surgical History HEENT History: Reports: Other (See Below) Other HEENT History: tonsillitis Cardiovascular History: Reports: None Respiratory History: Reports: None Gastrointestinal History: Reports: Chronic Diarrhea, Inflammatory Bowel Disease, Other (See Below) Other Gastrointestinal History: History of Ulcerative Colitis, colectomy 2020 Genitourinary History: Reports: None VASCULAR TECH History: Reports: Other (See Below) Other VASCULAR TECH History: Bacterial vaginitis, yeast infection Musculoskeletal History: Reports: None Neurological History: Reports: None Psychiatric History: Reports: ADHD Endocrine/Metabolic History: Reports: None Insulin Pump Model 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 Total abdominal colectomy with preservation of the rectum and right lower quadrant ileostomy. J pouch 08/19/20 [facility] Female Surgical History: Reports: None - Past Imaging History Past Imaging History: Reports: CAT Scan Social & Family History - Family History Family Medical History: No Pertinent Family History - Tobacco Use Tobacco Use Status *Q: Never Tobacco User Second Hand Smoke Exposure: No - Caffeine Use Caffeine Use: Reports: None Other Caffeine Use: seldom - Recreational Drug Use Recreational Drug Use: No ED ROS GENERAL - Review of Systems Review Of Systems: See Below Free Text/Narrative/Comment: General: No fever. Skin: No rash. Eyes: No vision problems. ENT: Per HPI Neck: No neck stiffness. Respiratory: No shortness of breath. Cardiac: No chest pain. Gastrointestinal: No nausea, vomiting or abdominal pain. Urinary: No dysuria. Musculoskeletal: No myalgias/arthralgias. Neurologic: No headache. ED EXAM, GENERAL - Physical Exam Exam: See Below Free Text/Narrative:: General Appearance: No acute distress, appears comfortable Skin: No rash HEENT: Normocephalic/atraumatic, sclera anicteric, mucous membranes moist, no trismus, no submental or sublingual swelling, uvula midline, significant posterior oropharyngeal and tonsillar erythema with some faint exudate Neck: Normal range of motion, no meningismus Chest and Lungs: Bilateral breath sounds, clear to auscultation Cardiovascular: Regular rate and rhythm Musculoskeletal: No edema or tenderness Neurologic: Awake, alert, no obvious deficits, moving all extremities Psychiatric: Appropriate, cooperative Course - Vital Signs Last Recorded V/S: Last Vital Signs Temp 97.4 F 01/29/21 10:04 Pulse 89 01/29/21 11:20 Resp 15 01/29/21 10:04 BP 96/58 L 01/29/21 11:20 Pulse Ox 100 01/29/21 11:20 - Orders/Labs/Meds Labs: Laboratory Tests 01/29/21 Range/Units 10:30 Group A Strep (PCR) NOT DETECTED (NOT DETECT) Meds: Medications Discontinued Medications Generic Name Dose Route Start Last Admin Trade Name Freq PRN Reason Stop Dose Admin Dexamethasone 10 mg 01/29/21 10:16 01/29/21 10:45 Dexamethasone 10 Mg/Ml Sdv .XX 01/29/21 10:17 10 mg ONETIME ONE Administration Departure - Departure Time of Disposition: 11:56 Disposition: Home, Self-Care 01 Condition: Good Clinical Impression: Viral pharyngitis - Discharge Information *PRESCRIPTION DRUG MONITORING PROGRAM REVIEWED*: Not Applicable *COPY OF PRESCRIPTION DRUG MONITORING REPORT IN PATIENT MEJIA: Not Applicable Instructions: Pharyngitis, [id number] Referrals: Roddy Allen MD [Primary Care Provider] - Forms: ED Department Discharge Additional Instructions: Your throat infection was again negative for strep and is likely caused by a virus. It should run its course over the next few days. The Decadron that you were given here in the ER is a steroid that should help with your symptoms over the next 1 to 2 days. If your symptoms worsen you develop a fever neck stiffness or any other symptoms that concern you please call your doctor or return to the ER. The following information is given to patients seen in the emergency department who are being discharged to home. This information is to outline your options for follow-up care. We provide all patients seen in our emergency department with a follow-up referral. The need for follow-up, as well as the timing and circumstances, are variable depending upon the specifics of your emergency department visit. If you don't have a primary care physician on staff, we will provide you with a referral. We always advise you to contact your personal physician following an emergency department visit to inform them of the circumstance of the visit and for follow-up with them and/or the need for any referrals to a consulting specialist. The emergency department will also refer you to a specialist when appropriate. This referral assures that you have the opportunity for follow-up care with a specialist. All of these measure are taken in an effort to provide you with optimal care, which includes your follow-up. Under all circumstances we always encourage you to contact your private physician who remains a resource for coordinating your care. When calling for follow-up care, please make the office aware that this follow-up is from your recent emergency room visit. If for any reason you are refused follow-up, please contact the [facility] Emergency Department at and asked to speak to the emergency department charge nurse. Sepsis Event Note (ED) - Evaluation Sepsis Screening Result: No Definite Risk - Focused Exam Vital Signs: Vital Signs Temp Pulse Resp BP Pulse Ox 01/29/21 11:20 89 96/58 L 100 01/29/21 10:04 97.4 F 97 15 113/74 99 - Assessment/Plan Assessment:: 20-year-old female present with signs and symptoms most consistent with viral pharyngitis given the cough but strep needs to be considered as well strep swab pending. Dose of Decadron to be provided no signs of deep space infection of the head or neck no signs of meningitis or encephalitis. 1155: Strep swab negative. Vital signs remain good work of breathing remains good patient nontoxic felt stable for discharge return precautions discussed and understood.
== END 2021-01-29 12:05 | disposition home or self-care (01) ==
LOC: MW.ED 09:51
DX: J02.8 Acute pharyngitis due to other specified organisms (principal)
CPT/HCPCS: 87651; 99283; J1100

== ENCOUNTER 2021-02-02 09:27 | Emergency (ER) | payer MEDICAID ==
--- NOTE | 2021-02-02 11:49 | EDM.PDOC ---
ED HPI GENERAL MEDICAL PROBLEM - General Chief Complaint: ENT Problem Stated Complaint: THROAT PAIN Time Seen by Provider: 02/02/21 10:05 Source of Information: Reports: Patient History Limitations: Reports: No Limitations - History of Present Illness INITIAL COMMENTS - FREE TEXT/NARRATIVE: HISTORY AND PHYSICAL: History of present illness: Patient is a 20-year-old female resents emergency room today with concern of worsening sore throat over the past 4 days. Patient states that she was last seen in the emergency room 4 days ago and told that she was did not have strep. Patient states that over the course of the last 4 days, she has now developed white spots on her tonsils and states that her throat is more sore. Patient states her tonsils are actually less swollen than they were when she was seen in the emergency room 4 days ago, but she has now developed the white pockets and was concerned of possible strep throat. Patient also notes that she has had increase in urinary frequency over the past 2 to 3 days but states that she is not having any burning with urination and is concerning for possible UTI as she has had frequent UTIs in the past. Patient states that she has the same sexual partner for the past 3 years and does not believe that she has a sexually transmitted infection. Patient denies any other symptoms or concerns. Patient states that she has been able to eat and drink but does have discomfort with swallowing. Patient denies fever, chills, chest pain, shortness of breath, or cough. Denies headache, neck stiff ness, change in vision, syncope, or near syncope. Denies nausea, vomiting, abdominal pain, diarrhea, constipation, or dysuria. Has not noted any blood in urine or stool. Patient has been eating and drinking appropriately. Review of systems: As per history of present illness and below otherwise all systems reviewed and negative. Past medical history: As per history of present illness and as reviewed below otherwise nonc ontributory. Surgical history: As per history of present illness and as reviewed below otherwise noncontributory. Social history: See social history for further information Family history: As per history of present illness and as reviewed below otherwise noncontributory. Physical exam: General: Patient is alert, oriented, and in no acute distress. Patient sitting comfortably on exam table. Vitals stable and reviewed by me. HEENT: Atraumatic, normocephalic, pupils equal and reactive bilaterally, negative for conjunctival pallor or scleral icterus, mucous membranes moist, throat is erythematous with white exudate on tonsils bilaterally, tonsils are not enlarged and equal, uvula midline, neck supple, nontender, trachea midline. No drooling or trismus noted. No meningeal signs. No hot potato voice noted. Lungs: Clear to auscultation, breath sounds equal bilaterally, chest nontender. Heart: S1S2, regular rate and rhythm without overt murmur Abdomen: Soft, nondistended, nontender. Negative for masses or hepatosplenomegaly. Negative for costovertebral tenderness. Pelvis: Stable nontender. Genitourinary: Deferred. Rectal: Deferred. Skin: Intact, warm, dry. No lesions or rashes noted. Extremities: Atraumatic, negative for cords or calf pain. Neurovascular unremarkable. Neuro: Awake, alert, oriented. Cranial nerves II through XII unremarkable. Cerebellum unremarkable. Motor and sensory unremarkable throughout. Exam nonfocal. Medical Decision Making: Signs and symptoms are prompt to the ED thoroughly discussed with patient. Discussed importance of follow-up with a primary care provider. Voices understanding and is agreeable to plan of care. Denies any further questions or concerns at this time. Diagnostics: UA, with culture Therapeutics: None Prescription: Augmentin, Bactrim DS Impression: Exudative pharyngitis Urinary tract infection Plan: 1. Take medication as prescribed. Your antibiotic prescription has been [facility]. You can alternate ibuprofen and Tylenol as directed for pain and discomfort. You can also take [id number] Azo as directed for urinary symptoms. 2. Follow-up with a primary care provider as discussed. Return to the ED as needed and as discussed. Definitive disposition and diagnosis as appropriate pending reevaluation and review of above. throat Pain Score (Numeric/FACES): 8 - Related Data Allergies Allergy/AdvReac Type Severity Reaction Status Date / Time No Known Allergies Allergy Verified 02/02/21 11:15 Home Meds: Home Meds Amoxicillin/Potassium Clav [Augmentin 875-125 Tablet] 1 each PO BID 10 Days #20 tablet 02/02/21 [Rx] Sulfamethoxazole/Trimethoprim [Bactrim Ds Tablet] 1 each PO BID 7 Days #14 tablet 02/02/21 [Rx] Past Medical History - Past Health History Medical/Surgical History: Denies Medical/Surgical History HEENT History: Reports: Other (See Below) Other HEENT History: tonsillitis Cardiovascular History: Reports: None Respiratory History: Reports: None Gastrointestinal History: Reports: Chronic Diarrhea, Inflammatory Bowel Disease, Other (See Below) Other Gastrointestinal History: History of Ulcerative Colitis, colectomy 2019 Genitourinary History: Reports: None REGISTERED ART THERAPIST History: Reports: Other (See Below) Other REGISTERED ART THERAPIST History: Bacterial vaginitis, yeast infection Musculoskeletal History: Reports: None Neurological History: Reports: None Psychiatric History: Reports: ADHD Endocrine/Metabolic History: Reports: None Insulin Pump Model and Flower Maker: N/A Hematologic History: Reports: Anemia, Other (See Below) Other Hematologic History: Blood Transfussions 2018 Immunologic History: Reports: None Oncologic (Cancer) History: Reports: None Dermatologic History: Reports: None - Infectious Disease History Infectious Disease History: Reports: None - Past Surgical History Head Surgeries/Procedures: Reports: None HEENT Surgical History: Reports: None Cardiovascular Surgical History: Reports: None GI Surgical History: Reports: Colonoscopy, Other (See Below) Other GI Surgeries/Procedures: Fecal transplant. Total abdominal colectomy with preservation of the rectum and right lower quadrant ileostomy. J pouch 08/19/20 [facility] Female Surgical History: Reports: None - Past Imaging History Past Imaging History: Reports: CAT Scan Social & Family History - Family History Family Medical History: No Pertinent Family History - Tobacco Use Tobacco Use Status *Q: Never Tobacco User Second Hand Smoke Exposure: No - Caffeine Use Caffeine Use: Reports: None Other Caffeine Use: seldom - Recreational Drug Use Recreational Drug Use: No ED ROS GENERAL - Review of Systems Review Of Systems: Comprehensive ROS is negative, except as noted in HPI. ED EXAM, GENERAL - Physical Exam Exam: See Below (see dictation) Course - Vital Signs Last Recorded V/S: Last Vital Signs Temp 97.4 F 02/02/21 11:15 Pulse 89 02/02/21 11:15 Resp 18 02/02/21 11:15 BP 125/64 02/02/21 11:15 Pulse Ox 97 02/02/21 11:15 - Orders/Labs/Meds Orders: Active Orders 24 hr Category Date Time Status CULTURE URINE [MREF] Stat Lab 02/02/21 12:20 Received Labs: Laboratory Tests 02/02/21 Range/Units 12:20 Urine Color YELLOW Urine Appearance CLOUDY Urine pH 6.0 (5.0-8.0) Ur Specific [place] >= 1.030 (1.001-1.035) Urine Protein 100 H (NEGATIVE) mg/dL Urine Glucose (UA) NEGATIVE (NEGATIVE) mg/dL Urine Ketones 15 H (NEGATIVE) mg/dL Urine Occult Blood LARGE H (NEGATIVE) Urine Nitrite POSITIVE H (NEGATIVE) Urine Bilirubin NEGATIVE (NEGATIVE) Urine Urobilinogen 0.2 (<2.0) EU/dL Ur Leukocyte Esterase LARGE H (NEGATIVE) Urine RBC 2-3 (0-2/HPF) Urine WBC 75-100 (0-5/HPF) Ur Epithelial Cells FEW (NONE-FEW) Urine Bacteria 2+ H (NEGATIVE) Urine Mucus LIGHT (NONE-MOD) Departure - Departure Time of Disposition: 12:42 Disposition: Home, Self-Care 01 Clinical Impression: Exudative pharyngitis, Urinary tract infection - Discharge Information Prescriptions: Amoxicillin/Potassium Clav [Augmentin 875-125 Tablet] 1 each PO BID 10 Days #20 tablet Sulfamethoxazole/Trimethoprim [Bactrim Ds Tablet] 1 each PO BID 7 Days #14 tablet Instructions: Urinary Tract Infection, Adult, [id number], Pharyngitis, [id number] Referrals: PCP,None [Primary Care Provider] - Forms: ED Department Discharge Additional Instructions: The following information is given to patients seen in the emergency department who are being discharged to home. This information is to outline your options for follow-up care. We provide all patients seen in our emergency department with a follow-up referral. The need for follow-up, as well as the timing and circumstances, are variable depending upon the specifics of your emergency department visit. If you don't have a primary care physician on staff, we will provide you with a referral. We always advise you to contact your personal physician following an emergency department visit to inform them of the circumstance of the visit and for follow-up with them and/or the need for any referrals to a consulting specialist. The emergency department will also refer you to a specialist when appropriate. This referral assures that you have the opportunity for follow-up care with a specialist. All of these measure are taken in an effort to provide you with optimal care, which includes your follow-up. Under all circumstances we always encourage you to contact your private physician who remains a resource for coordinating your care. When calling for follow-up care, please make the office aware that this follow-up is from your recent emergency room visit. If for any reason you are refused follow-up, please contact the [facility] Emergency Department at and asked to speak to the emergency department charge nurse. [facility] [address] [place] [address] [facility] [address] [place] [address] 1. Take medication as prescribed. Your antibiotic prescription has been [facility] to [facility]. You can alternate ibuprofen and Tylenol as directed for pain and discomfort. You can also take [id number] Azo as directed for u rinary symptoms. 2. Follow-up with a primary care provider as discussed. Return to the ED as needed and as discussed. Sepsis Event Note (ED) - Evaluation Sepsis Screening Result: No Definite Risk - Focused Exam Vital Signs: Vital Signs Temp Pulse Resp BP Pulse Ox 02/02/21 11:15 97.4 F 89 18 125/64 97 - My Orders Last 24 Hours: My Active Orders 02/02/21 12:20 CULTURE URINE [MREF] Stat - Assessment/Plan Last 24 Hours: My Active Orders 02/02/21 12:20 CULTURE URINE [MREF] Stat
== END 2021-02-02 13:00 | disposition home or self-care (01) ==
LOC: MW.ED 09:27
DX: J02.9 Acute pharyngitis, unspecified (principal); N39.0 Urinary tract infection, site not specified
CPT/HCPCS: 36415; 81001; 87086; 99283

== ENCOUNTER 2021-02-19 13:11 | Emergency (ER) | payer MEDICAID ==
[2021-02-19] MEDS ORDERED: traMADol 50 MG Tab PO ONE (13:54)
--- NOTE | 2021-02-19 14:52 | EDM.PDOC ---
ED HPI GENERAL MEDICAL PROBLEM - General Chief Complaint: Abdominal Pain Stated Complaint: STOMA INSIDE Time Seen by Provider: 02/19/21 13:18 - History of Present Illness INITIAL COMMENTS - FREE TEXT/NARRATIVE: HISTORY AND PHYSICAL: History of present illness: This is a 20-year-old female with a history significant ulcerative colitis with status post colostomy with stoma in 2019 who presents ER today secondary to noticing that her stoma was retracted this morning. Patient denies any other symptomatology other than some mild abdominal discomfort that she has had. She reports that this discomfort is not a new pain for her. She reports she had discomfort like this in the past. She reports no change in appetite. She reports no change in stool output. She reports no change in stool texture. Patient reports she is been tolerating p.o. solids and liquids well. She reports normal urinary output. Denies any recent fevers, shakes, chills, dysuria, frequency or urgency, chest pain, shortness of breath. Patient denies any recent excessive exertion or weight gain. Patient reports that her stoma was done over a year ago and has been stable since. Review of systems: As per history of present illness and below otherwise all systems reviewed and negative. Past medical history: As per history of present illness and as reviewed below otherwise noncontributory. Surgical history: As per history of present illness and as reviewed below otherwise noncontributory. Social history: No reported history of drug abuse. Family history: As per history of present illness and as reviewed below otherwise noncontributory. Physical exam: This patient was seen and evaluated during the 2019 SARS-CoV-2 novel coronavirus pandemic period. Community viral transmission is ongoing at time of this encounter and the emergency department is operating under pandemic response procedures. Constitutional: Patient is oriented to person, place, and time. Appears well- developed and well-nourished. No distress. HEENT: Moist mucous membranes Head: Normocephalic and atraumatic Eyes: Right eye exhibits no discharge. Left eye exhibits no discharge. No scleral icterus Neck: Normal range of motion. No tracheal deviation present. Cardiovascular: Normal rate and regular rhythm. Pulmonary: Effort normal, no respiratory distress. Abd: Soft, nondistended, no rebound/guarding, no psoas or obturator signs, no tenderness at Mcberney's point, no Salcido's sign. Pt does not present with an exam that would be consistent with an acute surgical abdomen at this time. Patient has some mild tenderness to palpation diffusely throughout her abdomen. Patient's pain is nonsurgical in nature and not consistent with rebound or guarding. Patient's stoma appears to be flat with her abdominal wall. Musculoskeletal: Normal range of motion Neurologic: Alert and oriented to person, place and time. Skin: [place], warm and dry. Psychiatric: Normal mood and affect. Behavior is normal. Judgment and thought content normal. Nursing note and vital signs have been reviewed Diagnostics: [] Urine negative CT abdomen pelvis: Therapeutics: Tramadol Assessment and plan: 20-year-old female who presents ER today with concerns regarding a retracted stoma. Patient reports that her procedure was done in [facility] and she does not have a stoma nurse here. Patient CT scan was reviewed without any evidence of acute pathology identified. Patient was reassured and instructed to follow-up with her surgeon next week for reevaluation. I have also discussed with the patient that she should talk to her primary care physician to see if they can assist her with managing her stoma as an outpatient. At this time I do not feel that there is any emergent issues with managing her retracted stoma. Patient is not complaining of any leakage or any other issues of concern. Reassessment at the time of disposition demonstrates that the patient is in no acute distress. The patient has remained stable throughout the entire ED visit and is without objective evidence for acute process requiring urgent intervention or hospitalization. The patient is stable for discharge, counseling is provided as documented above, discussed symptomatic treatment and specific conditions for return. I have spoken with the patient/caregiver and discussed todays findings, in addition to providing specific details for the plan of care. Questions are answered and there is agreement with the plan. Definitive disposition and diagnosis as appropriate pending reevaluation and review of above. Abdomen Pain Score (Numeric/FACES): 6 - Related Data Allergies Allergy/AdvReac Type Severity Reaction Status Date / Time No Known Allergies Allergy Verified 02/19/21 13:25 Past Medical History - Past Health History Medical/Surgical History: Denies Medical/Surgical History HEENT History: Reports: Other (See Below) Other HEENT History: tonsillitis Cardiovascular History: Reports: None Respiratory History: Reports: None Gastrointestinal History: Reports: Chronic Diarrhea, Inflammatory Bowel Disease, Other (See Below) Other Gastrointestinal History: History of Ulcerative Colitis, colectomy 2019 Genitourinary History: Reports: None HEAD SAWYER History: Reports: Other (See Below) Other HEAD SAWYER History: Bacterial vaginitis, yeast infection Musculoskeletal History: Reports: None Neurological History: Reports: None Psychiatric History: Reports: ADHD Endocrine/Metabolic History: Reports: None Insulin Pump Model and Shake Splitter: N/A Hematologic History: Reports: Anemia, Other (See Below) Other Hematologic History: Blood Transfussions 2018 Immunologic History: Reports: None Oncologic (Cancer) History: Reports: None Dermatologic History: Reports: None - Infectious Disease History Infectious Disease History: Reports: None - Past Surgical History Head Surgeries/Procedures: Reports: None HEENT Surgical History: Reports: None Cardiovascular Surgical History: Reports: None GI Surgical History: Reports: Colonoscopy, Other (See Below) Other GI Surgeries/Procedures: Fecal transplant. Total abdominal colectomy with preservation of the rectum and right lower quadrant ileostomy. J pouch 08/19/[address] [facility] Female Surgical History: Reports: None - Past Imaging History Past Imaging History: Reports: CAT Scan Social & Family History - Family History Family Medical History: No Pertinent Family History - Tobacco Use Tobacco Use Status *Q: Never Tobacco User - Caffeine Use Caffeine Use: Reports: None Other Caffeine Use: seldom - Recreational Drug Use Recreational Drug Use: No ED ROS GENERAL - Review of Systems Review Of Systems: See Below ED EXAM, GENERAL - Physical Exam Exam: See Below Course - Vital Signs Last Recorded V/S: Last Vital Signs Temp 97.5 F 02/19/21 13:26 Pulse 86 02/19/21 13:26 Resp 12 02/19/21 13:26 BP 132/49 L 02/19/21 13:26 Pulse Ox 100 02/19/21 13:26 - Orders/Labs/Meds Labs: Laboratory Tests 02/19/21 Range/Units 13:51 Urine HCG, Qual NEGATIVE (NEGATIVE) Meds: Medications Discontinued Medications Generic Name Dose Route Start Last Admin Trade Name Freq PRN Reason Stop Dose Admin Tramadol HCl 50 mg 02/19/21 13:54 02/19/21 13:59 Tramadol 50 Mg Tab PO 02/19/21 13:55 50 mg ONETIME ONE Administration Departure - Departure Time of Disposition: 15:13 Disposition: Home, Self-Care 01 Condition: Good Clinical Impression: Colostomy, retracted - Discharge Information Instructions: Colostomy Home Guide, Adult Referrals: Roddy Allen MD [Primary Care Provider] - Forms: ED Department Discharge Additional Instructions: You were seen and evaluated in the ER today secondary to your stoma retracting and being flushed with your skin. This is not an emergent issue that we will need to be repaired in ER however it is something that your doctor want to keep a close eye on. You may want to call your surgeon in [place] to see if they would like to see you in the office for follow-up. Please return to the ER if you have any other issues with the colostomy bag such as decreased passing of flatus through it or decreased output of stool through it. Please return the ER if you start developing increasing pain, fevers or any other issues that are concerning to you. The following information is given to patients seen in the emergency department who are being discharged to home. This information is to outline your options for follow-up care. We provide all patients seen in our emergency department with a follow-up referral. The need for follow-up, as well as the timing and circumstances, are variable depending upon the specifics of your emergency department visit. If you don't have a primary care physician on staff, we will provide you with a referral. We always advise you to contact your personal physician following an emergency department visit to inform them of the circumstance of the visit and for follow-up with them and/or the need for any referrals to a consulting specialist. The emergency department will also refer you to a specialist when appropriate. This referral assures that you have the opportunity for follow-up care with a specialist. All of these measure are taken in an effort to provide you with opti mal care, which includes your follow-up. Under all circumstances we always encourage you to contact your private physician who remains a resource for coordinating your care. When calling for follow-up care, please make the office aware that this follow-up is from your recent emergency room visit. If for any reason you are refused follow-up, please contact the [facility] Emergency Department at and asked to speak to the emergency department charge nurse. [facility] [address] [place] [id number] [facility] [address] [place] [address] Sepsis Event Note (ED) - Evaluation Sepsis Screening Result: No Definite Risk - Focused Exam Vital Signs: Vital Signs Temp Pulse Resp BP Pulse Ox 02/19/21 13:26 97.5 F 86 12 132/49 L 100
--- NOTE | 2021-02-19 15:05 | CT ---
INDICATION: Abdominal pain. TECHNIQUE: Multiple axial images were obtained from the diaphragm to the symphysis pubis without contrast. Sagittal and coronal re-formatted images were obtained. COMPARISON: 11/22/2020. FINDINGS: The visualized portion of the lung bases are clear. The liver, spleen, pancreas and adrenal glands are of unremarkable nonenhanced CT appearance. The gallbladder is decompressed. There are 2 punctate stones in the right kidney. In the left kidney there are 3 stones largest in the lower pole measuring 0.4 cm. There is no stones seen in the ureters or hydronephrosis. The patient is status post total colectomy with a right lower quadrant ileostomy. There is no evidence of a bowel obstruction. There is a rectal stump. There is decreased of fluid distention of the rectal stump. There is a 3.5 x 2.8 cm right ovarian cyst. The abdominal aorta is normal in caliber. There is no adenopathy. IMPRESSION: 1. Bilateral kidney stone largest in lower pole left kidney. No ureteral stone or hydronephrosis seen. 2. 3.5 x 2.8 cm right ovarian cyst. A pelvic ultrasound may be helpful to further evaluate this. 3. Status post total colectomy with a right lower quadrant ileostomy. Please note that all CT scans at this facility use dose modulation, iterative reconstruction, and/or weight-based dosing when appropriate to reduce radiation dose to as low as reasonably achievable. Dictated by Leon Holcomb MD @ 02/19/2021 3:02:55 PM (Electronically Signed)
== END 2021-02-19 15:40 | disposition home or self-care (01) ==
LOC: MW.ED 13:11
DX: K94.09 Other complications of colostomy (principal)
CPT/HCPCS: 74176; 81025; 99284; A9270

== ENCOUNTER 2021-03-26 10:40 | Inpatient (IN) | payer MEDICAID ==
[2021-03-26] MEDS ORDERED: Sodium Chloride 0.9% 1,000 ML IV ONE ×2 (10:53→13:24)
[2021-03-26] MEDS ORDERED: Ondansetron 4 MG/2 ML SDV IVPUSH ONE (10:58)
[2021-03-26] MEDS ORDERED: Morphine 4 MG/ML VIAL IVPUSH ONE (10:58)
[2021-03-26] MEDS ORDERED: methylPREDNISolone Sodium Succinate 125 MG/2 ML SDV IVPUSH ONE (10:58)
--- NOTE | 2021-03-26 11:17 | EDM.PDOC ---
ED HPI GENERAL MEDICAL PROBLEM - General Chief Complaint: Gastrointestinal Problem Stated Complaint: PT STATES "ULCERITIS FLARE UP" Time Seen by Provider: 03/26/21 10:41 Source of Information: Reports: Patient History Limitations: Reports: No Limitations - History of Present Illness INITIAL COMMENTS - FREE TEXT/NARRATIVE: 20-year-old female past medical history ulcerative colitis status post colectomy and colostomy placement in 2019 presents for presumptive ulcerative colitis flare. Patient states that for the last 2 days she has been experiencing diffuse aching abdominal pain. She has had nausea but no vomiting. She has noted watery stool from her ostomy site. She yesterday noted some bleeding in the stool. She notes that she is not currently on any immunomodulators or steroids. She notes that her ulcerative colitis is typically well managed status post colostomy placement and this is her first big flare. She denies any recorded fevers but has noted some night sweats. Abdomen Pain Score (Numeric/FACES): 10 - Related Data Allergies Allergy/AdvReac Type Severity Reaction Status Date / Time No Known Allergies Allergy Verified 03/26/21 10:48 Home Meds: Home Meds . [No Known Home Meds] 03/26/21 [History] Past Medical History - Past Health History Medical/Surgical History: Denies Medical/Surgical History HEENT History: Reports: Other (See Below) Other HEENT History: tonsillitis Cardiovascular History: Reports: None Respiratory History: Reports: None Gastrointestinal History: Reports: Chronic Diarrhea, Inflammatory Bowel Disease, Other (See Below) Other Gastrointestinal History: History of Ulcerative Colitis, colectomy 2019 Genitourinary History: Reports: None BURR FILER History: Reports: Other (See Below) Other BURR FILER History: Bacterial vaginitis, yeast infection Musculoskeletal History: Reports: None Neurological History: Reports: None Psychiatric History: Reports: ADHD Endocrine/Metabolic History: Reports: None Insulin Pump Model and Hvac Installation Technician: N/A Hematologic History: Reports: Anemia, Other (See Below) Other Hematologic History: Blood Transfussions 2018 Immunologic History: Reports: None Oncologic (Cancer) History: Reports: None Dermatologic History: Reports: None - Infectious Disease History Infectious Disease History: Reports: None - Past Surgical History Head Surgeries/Procedures: Reports: None HEENT Surgical History: Reports: None Cardiovascular Surgical History: Reports: None GI Surgical History: Reports: Colonoscopy, Other (See Below) Other GI Surgeries/Procedures: Fecal transplant. Total abdominal colectomy with preservation of the rectum and right lower quadrant ileostomy. J pouch 08/19/20 [facility] Female Surgical History: Reports: None - Past Imaging History Past Imaging History: Reports: CAT Scan Social & Family History - Family History Family Medical History: No Pertinent Family History - Tobacco Use Tobacco Use Status *Q: Never Tobacco User - Caffeine Use Caffeine Use: Reports: None Other Caffeine Use: seldom - Recreational Drug Use Recreational Drug Use: No ED ROS GENERAL - Review of Systems Review Of Systems: Comprehensive ROS is negative, except as noted in HPI. ED EXAM, GENERAL - Physical Exam Exam: See Below Exam Limited By: No Limitations General Appearance: Alert, WD/WN, No Apparent Distress Ears: Hearing Grossly Normal Throat/Mouth: Normal Voice, No Airway Compromise Head: Atraumatic, Normocephalic Respiratory/Chest: No Respiratory Distress, Lungs Clear, Normal Breath Sounds, No Accessory Muscle Use Cardiovascular: Normal Peripheral Pulses, Tachycardia GI/Abdominal: Soft, Other (Diffuse abdominal tenderness to palpation worse in the bilateral lower quadrant abdomen, well-appearing colostomy stoma with watery brown stool) Extremities: Normal Inspection Neurological: Alert, Normal Cognition, Normal Gait Psychiatric: Normal Affect, Normal Mood Skin Exam: Warm, Dry, Intact, Normal Color Course - Vital Signs Last Recorded V/S: Last Vital Signs Temp 97.5 F 03/26/21 10:43 Pulse 90 03/26/21 12:38 Resp 20 03/26/21 10:43 BP 107/64 03/26/21 12:38 Pulse Ox 98 03/26/21 12:38 - Orders/Labs/Meds Orders: Active Orders 24 hr Category Date Time Status Patient Status [ADT] Routine ADT 03/26/21 14:10 Ordered Sodium Chloride 0.9% [Normal Saline] 1,000 ml Med 03/26/21 13:24 Active IV .Bolus Saline Lock Insert [OM.PC] Stat Oth 03/26/21 10:53 Ordered Medication Orders Sodium Chloride (Normal Saline) 1,000 mls @ 125 mls/hr IV .Bolus ONE Stop: 03/26/21 21:23 Last Admin: 03/26/21 13:46 Dose: 125 mls/hr Documented by: СЕРГЕЙ Labs: Laboratory Tests 03/26/21 03/26/21 03/26/21 Range/Units 10:55 10:55 10:55 WBC 11.38 H (4.0-11.0) K/uL RBC 4.93 (4.30-5.90) M/uL Hgb 10.9 L (12.0-16.0) g/dL Hct 34.9 L (36.0-46.0) % MCV 70.8 L (80.0-98.0) fL MCH 22.1 L (27.0-32.0) pg MCHC 31.2 (31.0-37.0) g/dL RDW Std Deviation 43.9 (28.0-62.0) fl RDW Coeff of Buck 17 H (11.0-15.0) % Plt Count 461 H (150-400) K/uL MPV 10.30 (7.40-12.00) fL Neut % (Auto) 77.8 (48.0-80.0) % Lymph % (Auto) 13.4 L (16.0-40.0) % [place] % (Auto) 8.3 (0.0-15.0) % Eos % (Auto) 0.2 (0.0-7.0) % Baso % (Auto) 0.3 (0.0-1.5) % Neut # (Auto) 8.9 H (1.4-5.7) K/uL Lymph # (Auto) 1.5 (0.6-2.4) K/uL [place] # (Auto) 0.9 H (0.0-0.8) K/uL Eos # (Auto) 0.0 (0.0-0.7) K/uL Baso # (Auto) 0.0 (0.0-0.1) K/uL Nucleated RBC % 0.0 /100WBC Nucleated RBCs # 0 K/uL Sodium 137 (136-145) mmol/L Potassium 3.6 (3.5-5.1) mmol/L Chloride 101 (98-107) mmol/L Carbon Dioxide 23.4 (21.0-32.0) mmol/L BUN 8 (7.0-18.0) mg/dL Creatinine 0.9 (0.6-1.0) mg/dL Est Cr Clr Drug Dosing 86.36 mL/min Estimated GFR (MDRD) > 60.0 ml/min Glucose 85 (74-106) mg/dL Lactic Acid (0.4-2.0) mmol/L Calcium 9.4 (8.5-10.1) mg/dL Magnesium 1.8 (1.8-2.4) mg/dL Total Bilirubin 0.5 (0.2-1.0) mg/dL AST 25 (15-37) IU/L ALT 24 (14-63) IU/L Alkaline Phosphatase 110 (46-116) U/L C-Reactive Protein 1.00 H (0.00-0.90) mg/dL Total Protein 9.5 H (6.4-8.2) g/dL Albumin 4.4 (3.4-5.0) g/dL Globulin 5.1 H (2.6-4.0) g/dL Albumin/Globulin Ratio 0.9 (0.9-1.6) Lipase 75 (73-393) U/L HCG, Qual NEGATIVE (NEG) Urine Color Urine Appearance Urine pH (5.0-8.0) Ur Specific [place] (1.001-1.035) Urine Protein (NEGATIVE) mg/dL Urine Glucose (UA) (NEGATIVE) mg/dL Urine Ketones (NEGATIVE) mg/dL Urine Occult Blood (NEGATIVE) Urine Nitrite (NEGATIVE) Urine Bilirubin (NEGATIVE) Urine Urobilinogen (<2.0) EU/dL Ur Leukocyte Esterase (NEGATIVE) Urine RBC (0-2/HPF) Urine WBC (0-5/HPF) Ur Epithelial Cells (NONE-FEW) Urine Bacteria (NEGATIVE) SARS-CoV-2 RNA (REESE) (NEGATIVE) 03/26/21 03/26/21 03/26/21 Range/Units 11:07 11:07 11:07 WBC (4.0-11.0) K/uL RBC (4.30-5.90) M/uL Hgb (12.0-16.0) g/dL Hct (36.0-46.0) % MCV (80.0-98.0) fL MCH (27.0-32.0) pg MCHC (31.0-37.0) g/dL RDW Std Deviation (28.0-62.0) fl RDW Coeff of Buck (11.0-15.0) % Plt Count (150-400) K/uL MPV (7.40-12.00) fL Neut % (Auto) (48.0-80.0) % Lymph % (Auto) (16.0-40.0) % [place] % (Auto) (0.0-15.0) % Eos % (Auto) (0.0-7.0) % Baso % (Auto) (0.0-1.5) % Neut # (Auto) (1.4-5.7) K/uL Lymph # (Auto) (0.6-2.4) K/uL [place] # (Auto) (0.0-0.8) K/uL Eos # (Auto) (0.0-0.7) K/uL Baso # (Auto) (0.0-0.1) K/uL Nucleated RBC % /100WBC Nucleated RBCs # K/uL Sodium (136-145) mmol/L Potassium (3.5-5.1) mmol/L Chloride (98-107) mmol/L Carbon Dioxide (21.0-32.0) mmol/L BUN (7.0-18.0) mg/dL Creatinine (0.6-1.0) mg/dL Est Cr Clr Drug Dosing mL/min Estimated GFR (MDRD) ml/min Glucose (74-106) mg/dL Lactic Acid 1.7 (0.4-2.0) mmol/L Calcium (8.5-10.1) mg/dL Magnesium (1.8-2.4) mg/dL Total Bilirubin (0.2-1.0) mg/dL AST (15-37) IU/L ALT (14-63) IU/L Alkaline Phosphatase (46-116) U/L C-Reactive Protein (0.00-0.90) mg/dL Total Protein (6.4-8.2) g/dL Albumin (3.4-5.0) g/dL Globulin (2.6-4.0) g/dL Albumin/Globulin Ratio (0.9-1.6) Lipase (73-393) U/L HCG, Qual (NEG) Urine Color YELLOW Urine Appearance SLT CLOUDY Urine pH 6.0 (5.0-8.0) Ur Specific [place] 1.025 (1.001-1.035) Urine Protein NEGATIVE (NEGATIVE) mg/dL Urine Glucose (UA) NEGATIVE (NEGATIVE) mg/dL Urine Ketones NEGATIVE (NEGATIVE) mg/dL Urine Occult Blood SMALL H (NEGATIVE) Urine Nitrite POSITIVE H (NEGATIVE) Urine Bilirubin NEGATIVE (NEGATIVE) Urine Urobilinogen 0.2 (<2.0) EU/dL Ur Leukocyte Esterase SMALL H (NEGATIVE) Urine RBC 10-20 (0-2/HPF) Urine WBC 20-30 (0-5/HPF) Ur Epithelial Cells FEW (NONE-FEW) Urine Bacteria 2+ H (NEGATIVE) SARS-CoV-2 RNA (REESE) NEGATIVE (NEGATIVE) Meds: Medications Generic Name Dose Route Start Last Admin Trade Name Freq PRN Reason Stop Dose Admin Sodium Chloride 1,000 mls @ 125 mls/hr 03/26/21 13:24 03/26/21 13:46 Normal Saline IV 03/26/21 21:23 125 mls/hr .Bolus ONE Administration Discontinued Medications Generic Name Dose Route Start Last Admin Trade Name Freq PRN Reason Stop Dose Admin Hydromorphone HCl 1 mg 03/26/21 12:09 03/26/21 12:23 Hydromorphone 1 Mg/Ml Syringe IVPUSH 03/26/21 12:10 1 mg ONETIME ONE Administration Sodium Chloride 1,000 mls @ 999 mls/hr 03/26/21 10:53 03/26/21 11:09 Normal Saline IV 03/26/21 11:53 999 mls/hr .Bolus ONE Administration Ceftriaxone Sodium 1 gm/ 50 mls @ 100 mls/hr 03/26/21 12:10 03/26/21 12:23 Sodium Chloride IV 03/26/21 12:39 100 mls/hr ONETIME ONE Administration Methylprednisolone Sodium Succinate 125 mg 03/26/21 10:58 03/26/21 11:09 Methylprednisolone Sodium Succinate 125 Mg/2 Ml Sdv IVPUSH 03/26/21 10:59 125 mg ONETIME ONE Administration Metronidazole 500 mg 03/26/21 12:10 03/26/21 12:22 Metronidazole 250 Mg Tab PO 03/26/21 12:11 500 mg ONETIME ONE Administration Morphine Sulfate 4 mg 03/26/21 10:58 03/26/21 11:09 Morphine 4 Mg/Ml Vial IVPUSH 03/26/21 10:59 4 mg ONETIME ONE Administration Ondansetron HCl 4 mg 03/26/21 10:58 03/26/21 11:09 Ondansetron 4 Mg/2 Ml Sdv IVPUSH 03/26/21 10:59 4 mg ONETIME ONE Administration - Re-Assessments/Exams Free Text/Narrative Re-Assessment/Exam: 03/26/21 11:17 We will get basic labs. Will treat symptomatically. Will give methylprednisolone. Will get CT imaging of the abdomen and pelvis to ensure no abnormalities. 03/26/21 12:09 Patient's pain poorly controlled with morphine and Zofran alone. Dilaudid ordered for better analgesia. 03/26/21 12:14 CT imaging is unremarkable. Labs show evidence of urinary tract infection with mild leukocytosis. Fortaz and Flagyl ordered as this will cover UTI as well as any intra-abdominal infection associated with the ulcerative colitis. I spoke with patient at length regarding lab and imaging results. We will trial Dilaudid and reassess the patient after her antibiotics for disposition. I believe patient is likely stable enough to go home on steroids, analgesia, antibiotics if she is able to tolerate p.o. and pain is well controlled in the ER. It is also a possibility she may require admission for pain control and IV hydration depending on how she tolerates. Will reassess. 03/26/21 13:26 I long discussion with patient and she would prefer to be admitted to the hospital as she is still having some abdominal pain and significant nausea. I believe this is reasonable given her underlying medical condition. I will reach out to Dr. Cedeño for admission. 03/26/21 14:10 Dr. Cedeño agrees admit patient under his service Departure - Departure Time of Disposition: 14:10 Disposition: Refer to Observation Condition: Good Clinical Impression: Ulcerative colitis Qualifiers: Ulcerative colitis location: ulcerative pancolitis Digestive disease complication type: with rectal bleeding Qualified Code(s): K51.011 - Ulcerative (chronic) pancolitis with rectal bleeding - Discharge Information Referrals: PCP,None [Ordering Only Provider] - Forms: ED Department Discharge Sepsis Event Note (ED) - Focused Exam Vital Signs: Vital Signs Temp Pulse Resp BP Pulse Ox 03/26/21 12:38 90 107/64 98 03/26/21 10:43 97.5 F 115 H 20 118/77 99 - My Orders Last 24 Hours: My Active Orders 03/26/21 10:53 Saline Lock Insert [OM.PC] Stat 03/26/21 13:24 Sodium Chloride 0.9% [Normal Saline] 1,000 ml IV .Bolus 03/26/21 14:10 Patient Status [ADT] Routine - Assessment/Plan Last 24 Hours: My Active Orders 03/26/21 10:53 Saline Lock Insert [OM.PC] Stat 03/26/21 13:24 Sodium Chloride 0.9% [Normal Saline] 1,000 ml IV .Bolus 03/26/21 14:10 Patient Status [ADT] Routine
[2021-03-26 11:25] LABS: BLOOD UREA NITROGEN,BUN 8 mg/dL (7.0-18.0); CARBON DIOXIDE,CO2 23.4 mmol/L (21.0-32.0); CHLORIDE,CL 101 mmol/L (98-107); GLUCOSE RANDOM 85 mg/dL (74-106); LIPASE 75 U/L (73-393); POTASSIUM,K 3.6 mmol/L (3.5-5.1); SODIUM,NA 137 mmol/L (136-145)
--- NOTE | 2021-03-26 12:05 | CT ---
Indication: Ulcerative colitis flare Technique: Postcontrast CT abdomen and pelvis. 100 cc Isovue 370 intravenous contrast. Please note that all CT scans at this facility use dose modulation, iterative reconstruction, and/or weight-based dosing when appropriate to reduce radiation dose to as low as reasonably achievable. Comparison: 02/19/2021, 11/22/2020 Findings: Near-complete resolution of previously noted right ovarian cyst since the prior study. Interval development a left ovarian cyst containing a single thin septation measuring 4.5 cm. The uterus is deviated to the right, as before without leiomyoma. The bladder is incompletely distended. Postoperative changes of total colectomy are unchanged. There is no free air or free fluid. No abscess. Chronic mild fluid distension of the rectum is similar to the November exam. The right lower quadrant ostomy is normal without adjacent hernia. No small bowel obstruction. No evidence of acute enteritis. No enlarged lymph nodes. Liver is similar with mild heterogeneity involving the periphery of the right hepatic lobe. Adrenal glands normal. No solid renal mass. Bilateral renal stones are unchanged. Spleen normal. Normal pancreas. Gallbladder normal. Lung bases clear. Osseous structures unremarkable for age. Impression: Normal appearance of the small bowel without evidence of acute enteritis. Stable appearance of the rectal stump, unchanged since November. No bowel obstruction. Normal appearance of the right lower quadrant ostomy. Stable bilateral nonobstructing renal stones. 4.5 cm left ovarian cyst is now present. Please note that all CT scans at this facility use dose modulation, iterative reconstruction, and/or weight-based dosing when appropriate to reduce radiation dose to as low as reasonably achievable. Dictated by Sylvester Singh MD @ 03/26/2021 12:04:10 PM (Electronically Signed)
[2021-03-26] MEDS ORDERED: HYDROmorphone 1 MG/ML Syringe IVPUSH ONE (12:09)
[2021-03-26] MEDS ORDERED: cefTRIAXone 1 GM in Sodium Chloride 0.9% 50 ML IV ONE (12:10)
[2021-03-26] MEDS ORDERED: metroNIDAZOLE 250 MG Tab PO ONE (12:10)
--- NOTE | 2021-03-26 15:47 | PCM.HP.2 ---
H&P History of Present Illness - General Date of Service: 03/26/21 Admit Problem/Dx: Admission Diagnosis/Problem Admission Diagnosis/Problem Ulcerative colitis - History of Present Illness Initial Comments - Free Text/Narative: 20 yo female with pmh of ulcerative colitis s/p colectomy with colostomy, who presents with one day history of abdominal pain, fevers and chills. She reports blood mixed in her regular anal discharge. Abdomen Pain Score (Numeric/FACES): 10 - Related Data Allergies/Adverse Reactions: Allergies Allergy/AdvReac Type Severity Reaction Status Date / Time No Known Allergies Allergy Verified 03/27/21 02:43 Home Medications: Home Meds . [No Known Home Meds] 03/26/21 [History] Past Medical History - Past Health History Medical/Surgical History: Denies Medical/Surgical History HEENT History: Reports: Other (See Below) Other HEENT History: tonsillitis Cardiovascular History: Reports: None Respiratory History: Reports: None Gastrointestinal History: Reports: Chronic Diarrhea, Inflammatory Bowel Disease, Other (See Below) Other Gastrointestinal History: History of Ulcerative Colitis, colectomy 2019 Genitourinary History: Reports: None PEARL GLUE DRIER History: Reports: Other (See Below) Other OB/BYN History: Bacterial vaginitis, yeast infection Musculoskeletal History: Reports: None Neurological History: Reports: None Psychiatric History: Reports: ADHD Endocrine/Metabolic History: Reports: None Insulin Pump Model and Loss Prevention Agent: N/A Hematologic History: Reports: Anemia, Other (See Below) Other Hematologic History: Blood Transfussions 2018 Immunologic History: Reports: None Oncologic (Cancer) History: Reports: None Dermatologic History: Reports: None - Infectious Disease History Infectious Disease History: Reports: None - Past Surgical History Head Surgeries/Procedures: Reports: None HEENT Surgical History: Reports: None Cardiovascular Surgical History: Reports: None GI Surgical History: Reports: Colonoscopy, Other (See Below) Other GI Surgeries/Procedures: Fecal transplant. Total abdominal colectomy with preservation of the rectum and right lower quadrant ileostomy. J pouch 08/19/20 [facility] Female Surgical History: Reports: None - Past Imaging History Past Imaging History: Reports: CAT Scan Social & Family History - Family History Family Medical History: No Pertinent Family History - Tobacco Use Tobacco Use Status *Q: Never Tobacco User - Caffeine Use Caffeine Use: Reports: None Other Caffeine Use: seldom - Recreational Drug Use Recreational Drug Use: No H&P Review of Systems - Review of Systems: Review Of Systems: Comprehensive ROS is negative, except as noted in HPI. Exam - Exam Exam: See Below - Vital Signs Vital Signs: Last Vital Signs Temp 36.4 C 03/26/21 10:43 Pulse 90 03/26/21 12:38 Resp 20 03/26/21 10:43 BP 107/64 03/26/21 12:38 Pulse Ox 98 03/26/21 12:38 Weight: 55.792 kg - Exam General: Alert, Oriented HEENT: Mucosa Moist & [place] Neck: Supple Lungs: Clear to Auscultation, Normal Respiratory Effort Cardiovascular: Regular Rate, Regular Rhythm GI/Abdominal Exam: Normal Bowel Sounds, Soft, Non-Tender Extremities: Non-Tender, No Pedal Edema Skin: Warm, Dry, Intact - Patient Data Lab Results Last 24 hrs: Laboratory Results - last 24 hr 03/26/21 03/26/21 03/26/21 Range/Units 10:55 10:55 10:55 WBC 11.38 H (4.0-11.0) K/uL RBC 4.93 (4.30-5.90) M/uL Hgb 10.9 L (12.0-16.0) g/dL Hct 34.9 L (36.0-46.0) % MCV 70.8 L (80.0-98.0) fL MCH 22.1 L (27.0-32.0) pg MCHC 31.2 (31.0-37.0) g/dL RDW Std Deviation 43.9 (28.0-62.0) fl RDW Coeff of Buck 17 H (11.0-15.0) % Plt Count 461 H (150-400) K/uL MPV 10.30 (7.40-12.00) fL Neut % (Auto) 77.8 (48.0-80.0) % Lymph % (Auto) 13.4 L (16.0-40.0) % [place] % (Auto) 8.3 (0.0-15.0) % Eos % (Auto) 0.2 (0.0-7.0) % Baso % (Auto) 0.3 (0.0-1.5) % Neut # (Auto) 8.9 H (1.4-5.7) K/uL Lymph # (Auto) 1.5 (0.6-2.4) K/uL [place] # (Auto) 0.9 H (0.0-0.8) K/uL Eos # (Auto) 0.0 (0.0-0.7) K/uL Baso # (Auto) 0.0 (0.0-0.1) K/uL Nucleated RBC % 0.0 /100WBC Nucleated RBCs # 0 K/uL Sodium 137 (136-145) mmol/L Potassium 3.6 (3.5-5.1) mmol/L Chloride 101 (98-107) mmol/L Carbon Dioxide 23.4 (21.0-32.0) mmol/L BUN 8 (7.0-18.0) mg/dL Creatinine 0.9 (0.6-1.0) mg/dL Est Cr Clr Drug Dosing 86.36 mL/min Estimated GFR (MDRD) > 60.0 ml/min Glucose 85 (74-106) mg/dL Lactic Acid (0.4-2.0) mmol/L Calcium 9.4 (8.5-10.1) mg/dL Magnesium 1.8 (1.8-2.4) mg/dL Total Bilirubin 0.5 (0.2-1.0) mg/dL AST 25 (15-37) IU/L ALT 24 (14-63) IU/L Alkaline Phosphatase 110 (46-116) U/L C-Reactive Protein 1.00 H (0.00-0.90) mg/dL Total Protein 9.5 H (6.4-8.2) g/dL Albumin 4.4 (3.4-5.0) g/dL Globulin 5.1 H (2.6-4.0) g/dL Albumin/Globulin Ratio 0.9 (0.9-1.6) Lipase 75 (73-393) U/L HCG, Qual NEGATIVE (NEG) Urine Color Urine Appearance Urine pH (5.0-8.0) Ur Specific [place] (1.001-1.035) Urine Protein (NEGATIVE) mg/dL Urine Glucose (UA) (NEGATIVE) mg/dL Urine Ketones (NEGATIVE) mg/dL Urine Occult Blood (NEGATIVE) Urine Nitrite (NEGATIVE) Urine Bilirubin (NEGATIVE) Urine Urobilinogen (<2.0) EU/dL Ur Leukocyte Esterase (NEGATIVE) Urine RBC (0-2/HPF) Urine WBC (0-5/HPF) Ur Epithelial Cells (NONE-FEW) Urine Bacteria (NEGATIVE) SARS-CoV-2 RNA (REESE) (NEGATIVE) 03/26/21 03/26/21 03/26/21 Range/Units 11:07 11:07 11:07 WBC (4.0-11.0) K/uL RBC (4.30-5.90) M/uL Hgb (12.0-16.0) g/dL Hct (36.0-46.0) % MCV (80.0-98.0) fL MCH (27.0-32.0) pg MCHC (31.0-37.0) g/dL RDW Std Deviation (28.0-62.0) fl RDW Coeff of Buck (11.0-15.0) % Plt Count (150-400) K/uL MPV (7.40-12.00) fL Neut % (Auto) (48.0-80.0) % Lymph % (Auto) (16.0-40.0) % [place] % (Auto) (0.0-15.0) % Eos % (Auto) (0.0-7.0) % Baso % (Auto) (0.0-1.5) % Neut # (Auto) (1.4-5.7) K/uL Lymph # (Auto) (0.6-2.4) K/uL [place] # (Auto) (0.0-0.8) K/uL Eos # (Auto) (0.0-0.7) K/uL Baso # (Auto) (0.0-0.1) K/uL Nucleated RBC % /100WBC Nucleated RBCs # K/uL Sodium (136-145) mmol/L Potassium (3.5-5.1) mmol/L Chloride (98-107) mmol/L Carbon Dioxide (21.0-32.0) mmol/L BUN (7.0-18.0) mg/dL Creatinine (0.6-1.0) mg/dL Est Cr Clr Drug Dosing mL/min Estimated GFR (MDRD) ml/min Glucose (74-106) mg/dL Lactic Acid 1.7 (0.4-2.0) mmol/L Calcium (8.5-10.1) mg/dL Magnesium (1.8-2.4) mg/dL Total Bilirubin (0.2-1.0) mg/dL AST (15-37) IU/L ALT (14-63) IU/L Alkaline Phosphatase (46-116) U/L C-Reactive Protein (0.00-0.90) mg/dL Total Protein (6.4-8.2) g/dL Albumin (3.4-5.0) g/dL Globulin (2.6-4.0) g/dL Albumin/Globulin Ratio (0.9-1.6) Lipase (73-393) U/L HCG, Qual (NEG) Urine Color YELLOW Urine Appearance SLT CLOUDY Urine pH 6.0 (5.0-8.0) Ur Specific [place] 1.025 (1.001-1.035) Urine Protein NEGATIVE (NEGATIVE) mg/dL Urine Glucose (UA) NEGATIVE (NEGATIVE) mg/dL Urine Ketones NEGATIVE (NEGATIVE) mg/dL Urine Occult Blood SMALL H (NEGATIVE) Urine Nitrite POSITIVE H (NEGATIVE) Urine Bilirubin NEGATIVE (NEGATIVE) Urine Urobilinogen 0.2 (<2.0) EU/dL Ur Leukocyte Esterase SMALL H (NEGATIVE) Urine RBC 10-20 (0-2/HPF) Urine WBC 20-30 (0-5/HPF) Ur Epithelial Cells FEW (NONE-FEW) Urine Bacteria 2+ H (NEGATIVE) SARS-CoV-2 RNA (REESE) NEGATIVE (NEGATIVE) Result Diagrams: 03/27/21 07:25 03/27/21 07:25 Sepsis Event Note - Focused Exam Vital Signs: Vital Signs Temp Pulse Resp BP Pulse Ox 03/26/21 12:38 90 107/64 98 03/26/21 10:43 36.4 C 115 H 20 118/77 99 - Problem List (1) Ulcerative colitis SNOMED Code(s): 34985796 ICD Code: K51.90 - ULCERATIVE COLITIS, UNSPECIFIED, WITHOUT COMPLICATIONS Status: Chronic Current Visit: Yes Qualifiers: Ulcerative colitis location: ulcerative pancolitis Digestive disease complication type: with rectal bleeding Qualified Code(s): K51.011 - Ulcerative (chronic) pancolitis with rectal bleeding (2) Urinary tract infection SNOMED Code(s): 27181170 ICD Code: N39.0 - URINARY TRACT INFECTION, SITE NOT SPECIFIED Status: Acute Current Visit: Yes Problem List Initiated/Reviewed/Updated: Yes Orders Last 24hrs: Active Orders 24 hr Category Date Time Status Patient Status [ADT] Routine ADT 03/26/21 14:10 Active Antiembolic Devices [RC] PER UNIT ROUTINE Care 03/26/21 15:35 Ordered Oxygen Therapy [RC] PRN Care 03/26/21 15:34 Ordered Up ad Stefania [RC] ASDIRECTED Care 03/26/21 15:34 Ordered VTE/DVT Education [RC] PER UNIT ROUTINE Care 03/26/21 15:34 Ordered Vital Signs [RC] Q4H Care 03/26/21 15:34 Ordered Regular Diet [DIET] Diet 03/26/21 Breakfast Ordered C DIFFICILE AG/TOXIN W/REFLEX [RM] Routine Lab 03/26/21 14:55 Ordered CBC W/O DIFF,HEMOGRAM [HEME] AM Lab 03/27/21 05:11 Ordered COMPREHENSIVE METABOLIC PN,CMP [CHEM] AM Lab 03/27/21 05:11 Ordered CULTURE URINE [MREF] Routine Lab 03/26/21 14:56 Ordered STOOL CULTURE/SHIGA TOXIN [MREF] Routine Lab 03/26/21 14:55 Ordered Sodium Chloride 0.9% @ 125 MLS/HR (1000ml) Med 03/26/21 15:45 Ordered Sodium Chloride 0.9% [Normal Saline] 1,000 ml IV ASDIRECTED cefTRIAXone [Rocephin] 1 gm Med 03/27/21 12:00 Ordered Sodium Chloride 0.9% [Normal Saline AdvBag] 50 ml IV Q24H methylPREDNISolone Sod Succ [Solu-MEDROL] Med 03/27/21 09:00 Ordered 40 mg IVPUSH DAILY metroNIDAZOLE/Normal Saline [Flagyl in NS 500 MG/100 ML Med 03/26/21 18:00 Ordered ] 500 mg Premix Bag 1 bag IV QID Saline Lock Insert [OM.PC] Stat Oth 03/26/21 10:53 Ordered Sequential Compression Device [OM.PC] Per Unit Routine Oth 03/26/21 15:34 Ordered Resuscitation Status Routine Resus Stat 03/26/21 15:34 Ordered Medication Orders Ceftriaxone Sodium 1 gm/ (Sodium Chloride) 50 mls @ 100 mls/hr IV Q24H DONNIE Metronidazole 500 mg/ Premix 100 mls @ 100 mls/hr IV QID [facility] Sodium Chloride (Normal Saline) 1,000 mls @ 125 mls/hr IV ASDIRECTED [facility] Methylprednisolone Sodium Succinate (Methylprednisolone Sodium Succinate 40 Mg/1 Ml Sdv) 40 mg IVPUSH DAILY [facility] Assessment/Plan Comment:: 20 yo female admitted for ulcerative colitis flair with UTI Ulcerative colitis: continue solumedrol, Rocephin and Flagyl, stool cultures ordered UTI: Rocephin
[2021-03-26] MEDS: metroNIDAZOLE/Normal Saline 500 MG in Premix Bag 1 BAG IV SCH ×2 (17:48→23:13)
[2021-03-26] MEDS: oxyCODONE 5 MG Tab PO PRN ×2 (17:49→23:06)
[2021-03-26] MEDS: Morphine 2 MG/ML SYRINGE IVPUSH PRN (18:49)
[2021-03-27] MEDS: Morphine 2 MG/ML SYRINGE IVPUSH PRN ×4 (02:28→18:48)
[2021-03-27] MEDS: metroNIDAZOLE/Normal Saline 500 MG in Premix Bag 1 BAG IV SCH ×2 (05:48→12:27)
[2021-03-27] MEDS: Sodium Chloride 0.9% 1,000 ML IV SCH ×2 (08:47→18:43)
[2021-03-27] MEDS ORDERED: methylPREDNISolone Sodium Succinate 40 MG/1 ML SDV IVPUSH SCH (09:00)
[2021-03-27 09:14] LABS: BLOOD UREA NITROGEN,BUN 9 mg/dL (7.0-18.0); CARBON DIOXIDE,CO2 18.5 mmol/L (21.0-32.0); CHLORIDE,CL 105 mmol/L (98-107); GLUCOSE RANDOM 78 mg/dL (74-106); POTASSIUM,K 4.4 mmol/L (3.5-5.1); SODIUM,NA 137 mmol/L (136-145)
[2021-03-27] MEDS: oxyCODONE 5 MG Tab PO PRN (11:54)
[2021-03-27] MEDS ORDERED: cefTRIAXone 1 GM in Sodium Chloride 0.9% 50 ML IV SCH (12:00)
--- NOTE | 2021-03-27 15:41 | PCM.PN ---
- General Info Date of Service: 03/27/21 - Review of Systems Systems Review Comment:: abdominal pain is improving, stools is more formed - Patient Data Vitals - Most Recent: Last Vital Signs Temp 36.8 C 03/27/21 12:00 Pulse 69 03/27/21 12:00 Resp 18 03/27/21 12:00 BP 93/42 L 03/27/21 12:00 Pulse Ox 97 03/27/21 12:00 Weight - Most Recent: 53.977 kg I&O - Last 24 Hours: Intake & Output 03/27/21 03/27/21 03/27/21 06:59 14:59 22:59 Intake Total 1400 Output Total 1800 Balance -400 Lab Results Last 24 Hours: Laboratory Results - last 24 hr 03/27/21 03/27/21 Range/Units 07:25 07:25 WBC 13.18 H (4.0-11.0) K/uL RBC 4.28 L (4.30-5.90) M/uL Hgb 9.5 L (12.0-16.0) g/dL Hct 30.4 L (36.0-46.0) % MCV 71.0 L (80.0-98.0) fL MCH 22.2 L (27.0-32.0) pg MCHC 31.3 (31.0-37.0) g/dL RDW Std Deviation 43.9 (28.0-62.0) fl RDW Coeff of Buck 17 H (11.0-15.0) % Plt Count 409 H (150-400) K/uL MPV 10.40 (7.40-12.00) fL Nucleated RBC % 0.0 /100WBC Nucleated RBCs # 0 K/uL Sodium 137 (136-145) mmol/L Potassium 4.4 (3.5-5.1) mmol/L Chloride 105 (98-107) mmol/L Carbon Dioxide 18.5 L (21.0-32.0) mmol/L BUN 9 (7.0-18.0) mg/dL Creatinine 0.7 (0.6-1.0) mg/dL Est Cr Clr Drug Dosing 107.42 mL/min Estimated GFR (MDRD) > 60.0 ml/min Glucose 78 (74-106) mg/dL Calcium 8.5 (8.5-10.1) mg/dL Total Bilirubin 0.2 (0.2-1.0) mg/dL AST 19 (15-37) IU/L ALT 25 (14-63) IU/L Alkaline Phosphatase 85 (46-116) U/L Total Protein 7.0 (6.4-8.2) g/dL Albumin 3.1 L (3.4-5.0) g/dL Globulin 3.9 (2.6-4.0) g/dL Albumin/Globulin Ratio 0.8 L (0.9-1.6) Rohit Results Last 24 Hours: Microbiology 03/26/21 20:42 C. difficile Antigen & Toxins A,B - Final Stool / Feces Med Orders - Current: Current Medications Ceftriaxone Sodium 1 gm/ (Sodium Chloride) 50 mls @ 100 mls/hr IV Q24H [facility] Last Admin: 03/27/21 11:52 Dose: 100 mls/hr Documented by: Sodium Chloride (Normal Saline) 1,000 mls @ 125 mls/hr IV ASDIRECTED [facility] Last Admin: 03/27/21 08:47 Dose: 125 mls/hr Documented by: Morphine Sulfate (Morphine 2 Mg/Ml Syringe) 2 mg IVPUSH Q3H PRN PRN Reason: Pain Last Admin: 03/27/21 13:54 Dose: 2 mg Documented by: Oxycodone HCl (Oxycodone 5 Mg Tab) 5 mg PO Q4H PRN PRN Reason: Pain Last Admin: 03/27/21 11:54 Dose: 5 mg Documented by: Vancomycin HCl (Vancomycin 125 Mg Cap) 125 mg PO QID [facility] Discontinued Medications Hydromorphone HCl (Hydromorphone 1 Mg/Ml Syringe) 1 mg IVPUSH ONETIME ONE Stop: 03/26/21 12:10 Last Admin: 03/26/21 12:23 Dose: 1 mg Documented by: Sodium Chloride (Normal Saline) 1,000 mls @ 999 mls/hr IV .Bolus ONE Stop: 03/26/21 11:53 Last Admin: 03/26/21 11:09 Dose: 999 mls/hr Documented by: Ceftriaxone Sodium 1 gm/ (Sodium Chloride) 50 mls @ 100 mls/hr IV ONETIME ONE Stop: 03/26/21 12:39 Last Admin: 03/26/21 12:23 Dose: 100 mls/hr Documented by: Sodium Chloride (Normal Saline) 1,000 mls @ 125 mls/hr IV .Bolus ONE Stop: 03/26/21 21:23 Last Admin: 03/26/21 13:46 Dose: 125 mls/hr Documented by: Metronidazole 500 mg/ Premix 100 mls @ 100 mls/hr IV QID [facility] Last Admin: 03/27/21 12:27 Dose: 100 mls/hr Documented by: Methylprednisolone Sodium Succinate (Methylprednisolone Sodium Succinate 125 Mg/2 Ml Sdv) 125 mg IVPUSH ONETIME ONE Stop: 03/26/21 10:59 Last Admin: 03/26/21 11:09 Dose: 125 mg Documented by: Methylprednisolone Sodium Succinate (Methylprednisolone Sodium Succinate 40 Mg/1 Ml Sdv) 40 mg IVPUSH DAILY [facility] Last Admin: 03/27/21 08:43 Dose: 40 mg Documented by: Metronidazole (Metronidazole 250 Mg Tab) 500 mg PO ONETIME ONE Stop: 03/26/21 12:11 Last Admin: 03/26/21 12:22 Dose: 500 mg Documented by: Morphine Sulfate (Morphine 4 Mg/Ml Vial) 4 mg IVPUSH ONETIME ONE Stop: 03/26/21 10:59 Last Admin: 03/26/21 11:09 Dose: 4 mg Documented by: Ondansetron HCl (Ondansetron 4 Mg/2 Ml Sdv) 4 mg IVPUSH ONETIME ONE Stop: 03/26/21 10:59 Last Admin: 03/26/21 11:09 Dose: 4 mg Documented by: - Exam General: Alert, Oriented Neck: Supple Lungs: Clear to Auscultation, Normal Respiratory Effort Cardiovascular: Regular Rate, Regular Rhythm GI/Abdominal Exam: Normal Bowel Sounds, Soft, Non-Tender Extremities: Non-Tender, No Pedal Edema Skin: Warm, Dry, Intact Neurological: No New Focal Deficit - Patient Data Lab Results Last 24 hrs: Laboratory Results - last 24 hr 03/27/21 03/27/21 Range/Units 07:25 07:25 WBC 13.18 H (4.0-11.0) K/uL RBC 4.28 L (4.30-5.90) M/uL Hgb 9.5 L (12.0-16.0) g/dL Hct 30.4 L (36.0-46.0) % MCV 71.0 L (80.0-98.0) fL MCH 22.2 L (27.0-32.0) pg MCHC 31.3 (31.0-37.0) g/dL RDW Std Deviation 43.9 (28.0-62.0) fl RDW Coeff of Buck 17 H (11.0-15.0) % Plt Count 409 H (150-400) K/uL MPV 10.40 (7.40-12.00) fL Nucleated RBC % 0.0 /100WBC Nucleated RBCs # 0 K/uL Sodium 137 (136-145) mmol/L Potassium 4.4 (3.5-5.1) mmol/L Chloride 105 (98-107) mmol/L Carbon Dioxide 18.5 L (21.0-32.0) mmol/L BUN 9 (7.0-18.0) mg/dL Creatinine 0.7 (0.6-1.0) mg/dL Est Cr Clr Drug Dosing 107.42 mL/min Estimated GFR (MDRD) > 60.0 ml/min Glucose 78 (74-106) mg/dL Calcium 8.5 (8.5-10.1) mg/dL Total Bilirubin 0.2 (0.2-1.0) mg/dL AST 19 (15-37) IU/L ALT 25 (14-63) IU/L Alkaline Phosphatase 85 (46-116) U/L Total Protein 7.0 (6.4-8.2) g/dL Albumin 3.1 L (3.4-5.0) g/dL Globulin 3.9 (2.6-4.0) g/dL Albumin/Globulin Ratio 0.8 L (0.9-1.6) Result Diagrams: 03/27/21 07:25 03/27/21 07:25 Rohit Results Last 24 hrs: Microbiology 03/26/21 20:42 C. difficile Antigen & Toxins A,B - Final Stool / Feces Sepsis Event Note - Evaluation Sepsis Screening Result: No Definite Risk - Focused Exam Vital Signs: Vital Signs Temp Pulse Resp BP BP Pulse Ox 03/27/21 12:00 36.8 C 69 18 93/42 L 97 03/27/21 08:02 36.8 C 75 16 117/75 100 03/27/21 03:40 36.6 C 62 14 100/53 L 97 - Problem List & Annotations (1) Ulcerative colitis SNOMED Code(s): 43390835 Code(s): K51.90 - ULCERATIVE COLITIS, UNSPECIFIED, WITHOUT COMPLICATIONS Status: Chronic Current Visit: Yes Qualifiers: Ulcerative colitis location: ulcerative pancolitis Digestive disease complication type: with rectal bleeding Qualified Code(s): K51.011 - Ulcerative (chronic) pancolitis with rectal bleeding (2) Urinary tract infection SNOMED Code(s): 52627706 Code(s): N39.0 - URINARY TRACT INFECTION, SITE NOT SPECIFIED Status: Acute Current Visit: Yes - Problem List Review Problem List Initiated/Reviewed/Updated: Yes - My Orders Last 24 Hours: My Active Orders 03/26/21 15:34 Oxygen Therapy [RC] PRN Up ad Stefania [RC] ASDIRECTED VTE/DVT Education [RC] PER UNIT ROUTINE Vital Signs [RC] Q4H Sequential Compression Device [OM.PC] Per Unit Routine Resuscitation Status Routine 03/26/21 15:35 Antiembolic Devices [RC] PER UNIT ROUTINE 03/26/21 15:45 Sodium Chloride 0.9% [Normal Saline] 1,000 ml IV ASDIRECTED 03/26/21 17:30 Morphine 2 mg IVPUSH Q3H PRN oxyCODONE 5 mg PO Q4H PRN 03/26/21 20:42 C DIFICILE TOXIN BY PCR CONF [MREF] Routine STOOL CULTURE/SHIGA TOXIN [MREF] Routine 03/27/21 12:00 cefTRIAXone [Rocephin] 1 gm Sodium Chloride 0.9% [Normal Saline AdvBag] 50 ml IV Q24H 03/27/21 18:00 Vancomycin [Vancocin 125 MG Capsule] 125 mg PO QID 03/28/21 05:11 BASIC METABOLIC PANEL,BMP [CHEM] AM CBC WITH AUTO DIFF [HEME] AM MAGNESIUM [CHEM] AM PHOSPHORUS [CHEM] AM - Plan Plan:: 20 yo female admitted for ulcerative colitis flair with UTI Ulcerative colitis:has received solumedrol, Rocephin and Flagyl, stool has pos itive c.diff antigen but negative toxin. Will switch Flagyl to PO vancomycin. UTI: Rocephin
[2021-03-27] MEDS: Vancomycin 125 MG Cap PO SCH ×2 (17:35→23:34)
[2021-03-28] MEDS: Morphine 2 MG/ML SYRINGE IVPUSH PRN ×5 (00:59→22:22)
[2021-03-28] MEDS: Sodium Chloride 0.9% 1,000 ML IV SCH ×2 (02:41→11:24)
[2021-03-28] MEDS: Vancomycin 125 MG Cap PO SCH ×2 (06:12→11:24)
[2021-03-28 07:02] LABS: BLOOD UREA NITROGEN,BUN 9 mg/dL (7.0-18.0); CARBON DIOXIDE,CO2 22.7 mmol/L (21.0-32.0); CHLORIDE,CL 107 mmol/L (98-107); GLUCOSE RANDOM 82 mg/dL (74-106); POTASSIUM,K 3.7 mmol/L (3.5-5.1); SODIUM,NA 138 mmol/L (136-145)
[2021-03-28] MEDS: Nitrofurantoin Monohydrate/Macrocrystalline 100 MG Cap PO SCH ×2 (11:24→20:57)
--- NOTE | 2021-03-28 11:28 | PCM.PN ---
- General Info Date of Service: 03/28/21 Admission Dx/Problem (Free Text): Admission Diagnosis/Problem Admission Diagnosis/Problem Ulcerative colitis - Patient Data Vitals - Most Recent: Last Vital Signs Temp 98.5 F 03/28/21 08:00 Pulse 60 03/28/21 08:00 Resp 14 03/28/21 08:00 BP 115/66 03/28/21 08:00 Pulse Ox 100 03/28/21 08:00 Weight - Most Recent: 119 lb I&O - Last 24 Hours: Intake & Output 03/27/21 03/28/21 03/28/21 22:59 06:59 14:59 Intake Total 1263 1200 Output Total 1000 Balance 1263 200 Lab Results Last 24 Hours: Laboratory Results - last 24 hr 03/28/21 03/28/21 Range/Units 05:37 05:37 WBC 9.64 (4.0-11.0) K/uL RBC 4.03 L (4.30-5.90) M/uL Hgb 8.8 L (12.0-16.0) g/dL Hct 28.6 L (36.0-46.0) % MCV 71.0 L (80.0-98.0) fL MCH 21.8 L (27.0-32.0) pg MCHC 30.8 L (31.0-37.0) g/dL RDW Std Deviation 45.1 (28.0-62.0) fl RDW Coeff of Buck 17 H (11.0-15.0) % Plt Count 378 (150-400) K/uL MPV 10.60 (7.40-12.00) fL Neut % (Auto) 51.7 (48.0-80.0) % Lymph % (Auto) 39.2 (16.0-40.0) % [place] % (Auto) 8.3 (0.0-15.0) % Eos % (Auto) 0.5 (0.0-7.0) % Baso % (Auto) 0.3 (0.0-1.5) % Neut # (Auto) 5.0 (1.4-5.7) K/uL Lymph # (Auto) 3.8 H (0.6-2.4) K/uL [place] # (Auto) 0.8 (0.0-0.8) K/uL Eos # (Auto) 0.1 (0.0-0.7) K/uL Baso # (Auto) 0.0 (0.0-0.1) K/uL Nucleated RBC % 0.0 /100WBC Nucleated RBCs # 0 K/uL Sodium 138 (136-145) mmol/L Potassium 3.7 (3.5-5.1) mmol/L Chloride 107 (98-107) mmol/L Carbon Dioxide 22.7 (21.0-32.0) mmol/L BUN 9 (7.0-18.0) mg/dL Creatinine 0.7 (0.6-1.0) mg/dL Est Cr Clr Drug Dosing 107.42 mL/min Estimated GFR (MDRD) > 60.0 ml/min Glucose 82 (74-106) mg/dL Calcium 8.2 L (8.5-10.1) mg/dL Phosphorus 3.1 (2.6-4.7) mg/dL Magnesium 1.3 L (1.8-2.4) mg/dL Rohit Results Last 24 Hours: Microbiology 03/26/21 20:42 Clostridioides difficile (PCR) - Final Stool / Feces Med Orders - Current: Current Medications Sodium Chloride (Normal Saline) 1,000 mls @ 125 mls/hr IV ASDIRECTED [facility] Last Admin: 03/28/21 02:41 Dose: 125 mls/hr Documented by: Morphine Sulfate (Morphine 2 Mg/Ml Syringe) 2 mg IVPUSH Q3H PRN PRN Reason: Pain Last Admin: 03/28/21 08:13 Dose: 2 mg Documented by: Nitrofurantoin Macrocrystals (Nitrofurantoin Monohydrate/Macrocrystalline 100 Mg Cap) 100 mg PO BID [facility] Oxycodone HCl (Oxycodone 5 Mg Tab) 5 mg PO Q4H PRN PRN Reason: Pain Last Admin: 03/27/21 11:54 Dose: 5 mg Documented by: Vancomycin HCl (Vancomycin 125 Mg Cap) 125 mg PO QID [facility] Last Admin: 03/28/21 06:12 Dose: 125 mg Documented by: Discontinued Medications Hydromorphone HCl (Hydromorphone 1 Mg/Ml Syringe) 1 mg IVPUSH ONETIME ONE Stop: 03/26/21 12:10 Last Admin: 03/26/21 12:23 Dose: 1 mg Documented by: Sodium Chloride (Normal Saline) 1,000 mls @ 999 mls/hr IV .Bolus ONE Stop: 03/26/21 11:53 Last Admin: 03/26/21 11:09 Dose: 999 mls/hr Documented by: Ceftriaxone Sodium 1 gm/ (Sodium Chloride) 50 mls @ 100 mls/hr IV ONETIME ONE Stop: 03/26/21 12:39 Last Admin: 03/26/21 12:23 Dose: 100 mls/hr Documented by: Sodium Chloride (Normal Saline) 1,000 mls @ 125 mls/hr IV .Bolus ONE Stop: 03/26/21 21:23 Last Admin: 03/26/21 13:46 Dose: 125 mls/hr Documented by: Ceftriaxone Sodium 1 gm/ (Sodium Chloride) 50 mls @ 100 mls/hr IV Q24H [facility] Last Admin: 03/27/21 11:52 Dose: 100 mls/hr Documented by: Metronidazole 500 mg/ Premix 100 mls @ 100 mls/hr IV QID [facility] Last Admin: 03/27/21 12:27 Dose: 100 mls/hr Documented by: Methylprednisolone Sodium Succinate (Methylprednisolone Sodium Succinate 125 Mg/2 Ml Sdv) 125 mg IVPUSH ONETIME ONE Stop: 03/26/21 10:59 Last Admin: 03/26/21 11:09 Dose: 125 mg Documented by: Methylprednisolone Sodium Succinate (Methylprednisolone Sodium Succinate 40 Mg/1 Ml Sdv) 40 mg IVPUSH DAILY [facility] Last Admin: 03/27/21 08:43 Dose: 40 mg Documented by: Metronidazole (Metronidazole 250 Mg Tab) 500 mg PO ONETIME ONE Stop: 03/26/21 12:11 Last Admin: 03/26/21 12:22 Dose: 500 mg Documented by: Morphine Sulfate (Morphine 4 Mg/Ml Vial) 4 mg IVPUSH ONETIME ONE Stop: 03/26/21 10:59 Last Admin: 03/26/21 11:09 Dose: 4 mg Documented by: Ondansetron HCl (Ondansetron 4 Mg/2 Ml Sdv) 4 mg IVPUSH ONETIME ONE Stop: 03/26/21 10:59 Last Admin: 03/26/21 11:09 Dose: 4 mg Documented by: - Patient Data Lab Results Last 24 hrs: Laboratory Results - last 24 hr 03/28/21 03/28/21 Range/Units 05:37 05:37 WBC 9.64 (4.0-11.0) K/uL RBC 4.03 L (4.30-5.90) M/uL Hgb 8.8 L (12.0-16.0) g/dL Hct 28.6 L (36.0-46.0) % MCV 71.0 L (80.0-98.0) fL MCH 21.8 L (27.0-32.0) pg MCHC 30.8 L (31.0-37.0) g/dL RDW Std Deviation 45.1 (28.0-62.0) fl RDW Coeff of Buck 17 H (11.0-15.0) % Plt Count 378 (150-400) K/uL MPV 10.60 (7.40-12.00) fL Neut % (Auto) 51.7 (48.0-80.0) % Lymph % (Auto) 39.2 (16.0-40.0) % [place] % (Auto) 8.3 (0.0-15.0) % Eos % (Auto) 0.5 (0.0-7.0) % Baso % (Auto) 0.3 (0.0-1.5) % Neut # (Auto) 5.0 (1.4-5.7) K/uL Lymph # (Auto) 3.8 H (0.6-2.4) K/uL [place] # (Auto) 0.8 (0.0-0.8) K/uL Eos # (Auto) 0.1 (0.0-0.7) K/uL Baso # (Auto) 0.0 (0.0-0.1) K/uL Nucleated RBC % 0.0 /100WBC Nucleated RBCs # 0 K/uL Sodium 138 (136-145) mmol/L Potassium 3.7 (3.5-5.1) mmol/L Chloride 107 (98-107) mmol/L Carbon Dioxide 22.7 (21.0-32.0) mmol/L BUN 9 (7.0-18.0) mg/dL Creatinine 0.7 (0.6-1.0) mg/dL Est Cr Clr Drug Dosing 107.42 mL/min Estimated GFR (MDRD) > 60.0 ml/min Glucose 82 (74-106) mg/dL Calcium 8.2 L (8.5-10.1) mg/dL Phosphorus 3.1 (2.6-4.7) mg/dL Magnesium 1.3 L (1.8-2.4) mg/dL Result Diagrams: 03/28/21 05:37 03/28/21 05:37 Rohit Results Last 24 hrs: Microbiology 03/26/21 20:42 Clostridioides difficile (PCR) - Final Stool / Feces Sepsis Event Note - Evaluation Sepsis Screening Result: No Definite Risk - Focused Exam Vital Signs: Vital Signs Temp Pulse Resp BP Pulse Ox 03/28/21 08:00 98.5 F 60 14 115/66 100 03/28/21 04:00 97.4 F 70 14 109/53 L 99 03/28/21 00:00 97.9 F 75 14 112/56 L 98 - Plan Plan:: 20 yo female admitted for ulcerative colitis flair with UTI Ulcerative colitis: continue solumedrol, Rocephin and Flagyl, stool cultures o rdered UTI: Rocephin
[2021-03-28] MEDS ORDERED: Magnesium Sulfate/Water 2 GM in Premix Bag 1 BAG IV ONE (12:00)
--- NOTE | 2021-03-28 14:39 | PCM.DCSUM1 ---
Discharge Summary - Hospital Course HPI Initial Comments: 20 yo female with pmh of ulcerative colitis s/p colectomy with colostomy, who presents with one day history of abdominal pain, fevers and chills. She reports blood mixed in her regular anal discharge. Brief History: History of UC status post colectomy with J-pouch August 2019. Admitted with abdominal pain, chills with blood per rectally. Found to have UTI treated with antibiotics. Found to be C. difficile positive, however per GI specialist Dr. Calabrese at [facility] in [facility]. Encouraged to only treat UTI with antibiotics. Discontinue steroids and C. difficile treatment as patient no longer has a colon. States that blood was likely due to irritation of pouch. Diagnosis: Stroke: No - Discharge Data Discharge Date: 03/28/21 Discharge Disposition: Home, Self-Care 01 Condition: Good - Referral to Home Health Primary Care Physician: Roddy Allen MD - Patient Summary/Data Hospital Course: Patient was treated for UC flare with Solu-Medrol, C. difficile with Vanco and Flagyl as well as UTI with Rocephin. Leukocytosis improved, hypomagnesia corrected with 2 g of mag sulfate. GI consulted at [facility] in [place]. Advised to only continue treating UTI with antibiotics. Suggested discontinuing steroids and C. difficile medication as patient no longer has a colon in place. - Patient Instructions Diet: Usual Diet as Tolerated Activity: As Tolerated Driving: May Drive Today Showering/Bathing: May Shower Notify Provider of: Fever, Increased Pain, Swelling and Redness, Drainage, Nausea and/or Vomiting - Discharge Plan *PRESCRIPTION DRUG MONITORING PROGRAM REVIEWED*: Not Applicable *COPY OF PRESCRIPTION DRUG MONITORING REPORT IN PATIENT MEJIA: Not Applicable Prescriptions/Med Rec: Nitrofurantoin Knott/Macrocryst [Nitrofurantoin Knott-MCR] 100 mg PO BID 2 Days #4 cap Tobacco Cessation Medication: Prescription Given Home Medications: Home Meds Nitrofurantoin Knott/Macrocryst [Nitrofurantoin Knott-MCR] 100 mg PO BID 2 Days #4 cap 03/28/21 [Rx] Oxygen Therapy Mode: Room Air Patient Handouts: Urinary Tract Infection, Adult, [id number], Ulcerative Colitis, Adult Forms: ED Department Discharge Referrals: Roddy Allen MD [Primary Care Provider] - - Discharge Summary/Plan Comment DC Time >30 min.: No Total # of Minutes for Discharge Time: 20 Discharge Summary/Plan Comment: Patient is to return to hospital in the event she develop any abdominal pain, fever, chills, rectal bleeding. In addition is advised to follow-up with GI specialist/surgeon at [facility]. - General Info Date of Service: 03/28/21 - Patient Data Vitals - Most Recent: Last Vital Signs Temp 98.5 F 03/28/21 08:00 Pulse 60 03/28/21 08:00 Resp 14 03/28/21 08:00 BP 115/66 03/28/21 08:00 Pulse Ox 100 03/28/21 08:00 Weight - Most Recent: 119 lb I&O - Last 24 hours: Intake & Output 03/27/21 03/28/21 03/28/21 22:59 06:59 14:59 Intake Total 1263 1200 Output Total 1000 Balance 1263 200 Lab Results - Last 24 hrs: Laboratory Results - last 24 hr 03/28/21 03/28/21 Range/Units 05:37 05:37 WBC 9.64 (4.0-11.0) K/uL RBC 4.03 L (4.30-5.90) M/uL Hgb 8.8 L (12.0-16.0) g/dL Hct 28.6 L (36.0-46.0) % MCV 71.0 L (80.0-98.0) fL MCH 21.8 L (27.0-32.0) pg MCHC 30.8 L (31.0-37.0) g/dL RDW Std Deviation 45.1 (28.0-62.0) fl RDW Coeff of Buck 17 H (11.0-15.0) % Plt Count 378 (150-400) K/uL MPV 10.60 (7.40-12.00) fL Neut % (Auto) 51.7 (48.0-80.0) % Lymph % (Auto) 39.2 (16.0-40.0) % [place] % (Auto) 8.3 (0.0-15.0) % Eos % (Auto) 0.5 (0.0-7.0) % Baso % (Auto) 0.3 (0.0-1.5) % Neut # (Auto) 5.0 (1.4-5.7) K/uL Lymph # (Auto) 3.8 H (0.6-2.4) K/uL [place] # (Auto) 0.8 (0.0-0.8) K/uL Eos # (Auto) 0.1 (0.0-0.7) K/uL Baso # (Auto) 0.0 (0.0-0.1) K/uL Nucleated RBC % 0.0 /100WBC Nucleated RBCs # 0 K/uL Sodium 138 (136-145) mmol/L Potassium 3.7 (3.5-5.1) mmol/L Chloride 107 (98-107) mmol/L Carbon Dioxide 22.7 (21.0-32.0) mmol/L BUN 9 (7.0-18.0) mg/dL Creatinine 0.7 (0.6-1.0) mg/dL Est Cr Clr Drug Dosing 107.42 mL/min Estimated GFR (MDRD) > 60.0 ml/min Glucose 82 (74-106) mg/dL Calcium 8.2 L (8.5-10.1) mg/dL Phosphorus 3.1 (2.6-4.7) mg/dL Magnesium 1.3 L (1.8-2.4) mg/dL JERO Results - Last 24 hrs: Microbiology 03/26/21 20:42 Shiga Toxin I & II - Final Stool / Feces 03/26/21 20:42 Clostridioides difficile (PCR) - Final Stool / Feces Med Orders - Current: Current Medications Sodium Chloride (Normal Saline) 1,000 mls @ 125 mls/hr IV ASDIRECTED [facility] Last Admin: 03/28/21 11:24 Dose: 125 mls/hr Documented by: Morphine Sulfate (Morphine 2 Mg/Ml Syringe) 2 mg IVPUSH Q3H PRN PRN Reason: Pain Last Admin: 03/28/21 11:25 Dose: 2 mg Documented by: Nitrofurantoin Macrocrystals (Nitrofurantoin Monohydrate/Macrocrystalline 100 Mg Cap) 100 mg PO BID [facility] Last Admin: 03/28/21 11:24 Dose: 100 mg Documented by: Oxycodone HCl (Oxycodone 5 Mg Tab) 5 mg PO Q4H PRN PRN Reason: Pain Last Admin: 03/27/21 11:54 Dose: 5 mg Documented by: Discontinued Medications Hydromorphone HCl (Hydromorphone 1 Mg/Ml Syringe) 1 mg IVPUSH ONETIME ONE Stop: 03/26/21 12:10 Last Admin: 03/26/21 12:23 Dose: 1 mg Documented by: Sodium Chloride (Normal Saline) 1,000 mls @ 999 mls/hr IV .Bolus ONE Stop: 03/26/21 11:53 Last Admin: 03/26/21 11:09 Dose: 999 mls/hr Documented by: Ceftriaxone Sodium 1 gm/ (Sodium Chloride) 50 mls @ 100 mls/hr IV ONETIME ONE Stop: 03/26/21 12:39 Last Admin: 03/26/21 12:23 Dose: 100 mls/hr Documented by: Sodium Chloride (Normal Saline) 1,000 mls @ 125 mls/hr IV .Bolus ONE Stop: 03/26/21 21:23 Last Admin: 03/26/21 13:46 Dose: 125 mls/hr Documented by: Ceftriaxone Sodium 1 gm/ (Sodium Chloride) 50 mls @ 100 mls/hr IV Q24H [facility] Last Admin: 03/27/21 11:52 Dose: 100 mls/hr Documented by: Metronidazole 500 mg/ Premix 100 mls @ 100 mls/hr IV QID [facility] Last Admin: 03/27/21 12:27 Dose: 100 mls/hr Documented by: Magnesium Sulfate 2 gm/ Premix 50 mls @ 25 mls/hr IV ONETIME ONE Stop: 03/28/21 13:59 Last Admin: 03/28/21 12:59 Dose: 25 mls/hr Documented by: Methylprednisolone Sodium Succinate (Methylprednisolone Sodium Succinate 125 Mg/2 Ml Sdv) 125 mg IVPUSH ONETIME ONE Stop: 03/26/21 10:59 Last Admin: 03/26/21 11:09 Dose: 125 mg Documented by: Methylprednisolone Sodium Succinate (Methylprednisolone Sodium Succinate 40 Mg/1 Ml Sdv) 40 mg IVPUSH DAILY [facility] Last Admin: 03/27/21 08:43 Dose: 40 mg Documented by: Metronidazole (Metronidazole 250 Mg Tab) 500 mg PO ONETIME ONE Stop: 03/26/21 12:11 Last Admin: 03/26/21 12:22 Dose: 500 mg Documented by: Morphine Sulfate (Morphine 4 Mg/Ml Vial) 4 mg IVPUSH ONETIME ONE Stop: 03/26/21 10:59 Last Admin: 03/26/21 11:09 Dose: 4 mg Documented by: Ondansetron HCl (Ondansetron 4 Mg/2 Ml Sdv) 4 mg IVPUSH ONETIME ONE Stop: 03/26/21 10:59 Last Admin: 03/26/21 11:09 Dose: 4 mg Documented by: Vancomycin HCl (Vancomycin 125 Mg Cap) 125 mg PO QID [facility] Last Admin: 03/28/21 11:24 Dose: 125 mg Documented by:
--- NOTE | 2021-03-28 18:38 | PCM.PN ---
- General Info Date of Service: 03/28/21 Subjective Update: 20-year-old female admitted with UC flare/UTI. States symptoms are much improved however still continues to complain of intermittent pain described as 7 out of 10 on the pain scale. Denies any alleviating or aggravating factors. No longer bleeding per rectally, seen and examined at bedside sitting up in bed eating breakfast. All questions and concerns were addressed at bedside. - Review of Systems General: Reports: No Symptoms HEENT: Reports: No Symptoms Pulmonary: Reports: No Symptoms Cardiovascular: Reports: No Symptoms Gastrointestinal: Reports: Abdominal Pain, Nausea Genitourinary: Reports: No Symptoms Musculoskeletal: Reports: No Symptoms Skin: Reports: No Symptoms Neurological: Reports: No Symptoms Psychiatric: Reports: No Symptoms - Patient Data Vitals - Most Recent: Last Vital Signs Temp 98.5 F 03/28/21 08:00 Pulse 60 03/28/21 08:00 Resp 14 03/28/21 08:00 BP 115/66 03/28/21 08:00 Pulse Ox 100 03/28/21 08:00 Weight - Most Recent: 119 lb I&O - Last 24 Hours: Intake & Output 03/28/21 03/28/21 03/28/21 06:59 14:59 22:59 Intake Total 1200 Output Total 1000 Balance 200 Lab Results Last 24 Hours: Laboratory Results - last 24 hr 03/28/21 03/28/21 Range/Units 05:37 05:37 WBC 9.64 (4.0-11.0) K/uL RBC 4.03 L (4.30-5.90) M/uL Hgb 8.8 L (12.0-16.0) g/dL Hct 28.6 L (36.0-46.0) % MCV 71.0 L (80.0-98.0) fL MCH 21.8 L (27.0-32.0) pg MCHC 30.8 L (31.0-37.0) g/dL RDW Std Deviation 45.1 (28.0-62.0) fl RDW Coeff of Buck 17 H (11.0-15.0) % Plt Count 378 (150-400) K/uL MPV 10.60 (7.40-12.00) fL Neut % (Auto) 51.7 (48.0-80.0) % Lymph % (Auto) 39.2 (16.0-40.0) % Benzie % (Auto) 8.3 (0.0-15.0) % Eos % (Auto) 0.5 (0.0-7.0) % Baso % (Auto) 0.3 (0.0-1.5) % Neut # (Auto) 5.0 (1.4-5.7) K/uL Lymph # (Auto) 3.8 H (0.6-2.4) K/uL Benzie # (Auto) 0.8 (0.0-0.8) K/uL Eos # (Auto) 0.1 (0.0-0.7) K/uL Baso # (Auto) 0.0 (0.0-0.1) K/uL Nucleated RBC % 0.0 /100WBC Nucleated RBCs # 0 K/uL Sodium 138 (136-145) mmol/L Potassium 3.7 (3.5-5.1) mmol/L Chloride 107 (98-107) mmol/L Carbon Dioxide 22.7 (21.0-32.0) mmol/L BUN 9 (7.0-18.0) mg/dL Creatinine 0.7 (0.6-1.0) mg/dL Est Cr Clr Drug Dosing 107.42 mL/min Estimated GFR (MDRD) > 60.0 ml/min Glucose 82 (74-106) mg/dL Calcium 8.2 L (8.5-10.1) mg/dL Phosphorus 3.1 (2.6-4.7) mg/dL Magnesium 1.3 L (1.8-2.4) mg/dL Rohit Results Last 24 Hours: Microbiology 03/26/21 11:07 Urine Culture - Preliminary Urine Escherichia Coli 03/26/21 20:42 Stool Culture - Preliminary Stool / Feces Shiga Toxin I & II - Final 03/26/21 20:42 Clostridioides difficile (PCR) - Final Stool / Feces Med Orders - Current: Current Medications Sodium Chloride (Normal Saline) 1,000 mls @ 125 mls/hr IV ASDIRECTED DONNIE Last Admin: 03/28/21 11:24 Dose: 125 mls/hr Documented by: Morphine Sulfate (Morphine 2 Mg/Ml Syringe) 2 mg IVPUSH Q3H PRN PRN Reason: Pain Last Admin: 03/28/21 16:38 Dose: 2 mg Documented by: Nitrofurantoin Macrocrystals (Nitrofurantoin Monohydrate/Macrocrystalline 100 Mg Cap) 100 mg PO BID [facility] Last Admin: 03/28/21 11:24 Dose: 100 mg Documented by: Oxycodone HCl (Oxycodone 5 Mg Tab) 5 mg PO Q4H PRN PRN Reason: Pain Last Admin: 03/27/21 11:54 Dose: 5 mg Documented by: Discontinued Medications Hydromorphone HCl (Hydromorphone 1 Mg/Ml Syringe) 1 mg IVPUSH ONETIME ONE Stop: 03/26/21 12:10 Last Admin: 03/26/21 12:23 Dose: 1 mg Documented by: Sodium Chloride (Normal Saline) 1,000 mls @ 999 mls/hr IV .Bolus ONE Stop: 03/26/21 11:53 Last Admin: 03/26/21 11:09 Dose: 999 mls/hr Documented by: Ceftriaxone Sodium 1 gm/ (Sodium Chloride) 50 mls @ 100 mls/hr IV ONETIME ONE Stop: 03/26/21 12:39 Last Admin: 03/26/21 12:23 Dose: 100 mls/hr Documented by: Sodium Chloride (Normal Saline) 1,000 mls @ 125 mls/hr IV .Bolus ONE Stop: 03/26/21 21:23 Last Admin: 03/26/21 13:46 Dose: 125 mls/hr Documented by: Ceftriaxone Sodium 1 gm/ (Sodium Chloride) 50 mls @ 100 mls/hr IV Q24H [facility] Last Admin: 03/27/21 11:52 Dose: 100 mls/hr Documented by: Metronidazole 500 mg/ Premix 100 mls @ 100 mls/hr IV QID [facility] Last Admin: 03/27/21 12:27 Dose: 100 mls/hr Documented by: Magnesium Sulfate 2 gm/ Premix 50 mls @ 25 mls/hr IV ONETIME ONE Stop: 03/28/21 13:59 Last Admin: 03/28/21 12:59 Dose: 25 mls/hr Documented by: Methylprednisolone Sodium Succinate (Methylprednisolone Sodium Succinate 125 Mg/2 Ml Sdv) 125 mg IVPUSH ONETIME ONE Stop: 03/26/21 10:59 Last Admin: 03/26/21 11:09 Dose: 125 mg Documented by: Methylprednisolone Sodium Succinate (Methylprednisolone Sodium Succinate 40 Mg/1 Ml Sdv) 40 mg IVPUSH DAILY [facility] Last Admin: 03/27/21 08:43 Dose: 40 mg Documented by: Metronidazole (Metronidazole 250 Mg Tab) 500 mg PO ONETIME ONE Stop: 03/26/21 12:11 Last Admin: 03/26/21 12:22 Dose: 500 mg Documented by: Morphine Sulfate (Morphine 4 Mg/Ml Vial) 4 mg IVPUSH ONETIME ONE Stop: 03/26/21 10:59 Last Admin: 03/26/21 11:09 Dose: 4 mg Documented by: Ondansetron HCl (Ondansetron 4 Mg/2 Ml Sdv) 4 mg IVPUSH ONETIME ONE Stop: 03/26/21 10:59 Last Admin: 03/26/21 11:09 Dose: 4 mg Documented by: Vancomycin HCl (Vancomycin 125 Mg Cap) 125 mg PO QID [facility] Last Admin: 03/28/21 11:24 Dose: 125 mg Documented by: - Exam General: Alert, Oriented, Cooperative, No Acute Distress Lungs: Clear to Auscultation, Normal Respiratory Effort Cardiovascular: Regular Rate, Regular Rhythm GI/Abdominal Exam: Normal Bowel Sounds, Soft, Non-Tender Extremities: Normal Inspection, Normal Range of Motion, Non-Tender, No Pedal Edema, Normal Capillary Refill Peripheral Pulses: 2+: Carotid (L), Carotid (R), Posterior Tibial (L), Posterior Tibial (R) Skin: Warm, Dry, Intact Neurological: No New Focal Deficit Psy/Mental Status: Alert, Normal Affect, Normal Mood - Patient Data Lab Results Last 24 hrs: Laboratory Results - last 24 hr 03/28/21 03/28/21 Range/Units 05:37 05:37 WBC 9.64 (4.0-11.0) K/uL RBC 4.03 L (4.30-5.90) M/uL Hgb 8.8 L (12.0-16.0) g/dL Hct 28.6 L (36.0-46.0) % MCV 71.0 L (80.0-98.0) fL MCH 21.8 L (27.0-32.0) pg MCHC 30.8 L (31.0-37.0) g/dL RDW Std Deviation 45.1 (28.0-62.0) fl RDW Coeff of Buck 17 H (11.0-15.0) % Plt Count 378 (150-400) K/uL MPV 10.60 (7.40-12.00) fL Neut % (Auto) 51.7 (48.0-80.0) % Lymph % (Auto) 39.2 (16.0-40.0) % Benzie % (Auto) 8.3 (0.0-15.0) % Eos % (Auto) 0.5 (0.0-7.0) % Baso % (Auto) 0.3 (0.0-1.5) % Neut # (Auto) 5.0 (1.4-5.7) K/uL Lymph # (Auto) 3.8 H (0.6-2.4) K/uL Benzie # (Auto) 0.8 (0.0-0.8) K/uL Eos # (Auto) 0.1 (0.0-0.7) K/uL Baso # (Auto) 0.0 (0.0-0.1) K/uL Nucleated RBC % 0.0 /100WBC Nucleated RBCs # 0 K/uL Sodium 138 (136-145) mmol/L Potassium 3.7 (3.5-5.1) mmol/L Chloride 107 (98-107) mmol/L Carbon Dioxide 22.7 (21.0-32.0) mmol/L BUN 9 (7.0-18.0) mg/dL Creatinine 0.7 (0.6-1.0) mg/dL Est Cr Clr Drug Dosing 107.42 mL/min Estimated GFR (MDRD) > 60.0 ml/min Glucose 82 (74-106) mg/dL Calcium 8.2 L (8.5-10.1) mg/dL Phosphorus 3.1 (2.6-4.7) mg/dL Magnesium 1.3 L (1.8-2.4) mg/dL Result Diagrams: 03/28/21 05:37 03/28/21 05:37 Rohit Results Last 24 hrs: Microbiology 03/26/21 11:07 Urine Culture - Preliminary Urine Escherichia Coli 03/26/21 20:42 Stool Culture - Preliminary Stool / Feces Shiga Toxin I & II - Final 03/26/21 20:42 Clostridioides difficile (PCR) - Final Stool / Feces Sepsis Event Note - Evaluation Sepsis Screening Result: No Definite Risk - Focused Exam Vital Signs: Vital Signs Temp Pulse Resp BP Pulse Ox 03/28/21 08:00 98.5 F 60 14 115/66 100 - Problem List & Annotations (1) Urinary tract infection SNOMED Code(s): 92929858 Code(s): N39.0 - URINARY TRACT INFECTION, SITE NOT SPECIFIED Status: Acute Current Visit: Yes (2) Ulcerative colitis SNOMED Code(s): 12244970 Code(s): K51.90 - ULCERATIVE COLITIS, UNSPECIFIED, WITHOUT COMPLICATIONS Status: Chronic Current Visit: Yes Qualifiers: Ulcerative colitis location: ulcerative pancolitis Digestive disease complication type: with rectal bleeding Qualified Code(s): K51.011 - Ulcerative (chronic) pancolitis with rectal bleeding (3) Abdominal pain SNOMED Code(s): 37966961 Code(s): R10.9 - UNSPECIFIED ABDOMINAL PAIN Status: Acute Priority: Medium Current Visit: No Qualifiers: Abdominal location: generalized Qualified Code(s): R10.84 - Generalized abdominal pain (4) C. difficile diarrhea SNOMED Code(s): 4980930541371 Code(s): A04.72 - ENTEROCOLITIS D/T CLOSTRIDIUM DIFFICILE, NOT SPCF RECUR Status: Acute Current Visit: No - Problem List Review Problem List Initiated/Reviewed/Updated: Yes - My Orders Last 24 Hours: My Active Orders 03/28/21 14:36 Ready for Discharge [RC] PER UNIT ROUTINE - Plan Plan:: 20-year-old female admitted for UC flare/UTI. 1. UC flare: Vitally stable, endorses intermittent abdominal pain, no longer bleeding per rectally. Per GI specialist in [place] was advised to discontinue Solu-Medrol as patient no longer has colon since 2019. States that inflammation may be common complication of rectal component left as a part of the J-pouch procedure. Tolerating p.o. continue with regular diet likely discharge home tomorrow 5 mg oxycodone every 4 as needed for pain/morphine as needed for pain Zofran 4 mg, every 4 hours as needed for nausea To closely follow-up with GI specialist/gastric surgeon at [place] [facility] following hospital discharge. 2. UTI: DC Rocephin, initiate nitrofurantoin for 3 days 100 mg twice daily. 3. C. difficile: Strain patient with p.o. Vanco and Flagyl, discontinued per GI recommendations. Disposition: Patient will likely discharge home tomorrow
[2021-03-28] MEDS: oxyCODONE 5 MG Tab PO PRN (20:57)
[2021-03-29] MEDS: oxyCODONE 5 MG Tab PO PRN ×2 (08:36→17:00)
[2021-03-29] MEDS: Nitrofurantoin Monohydrate/Macrocrystalline 100 MG Cap PO SCH ×2 (08:36→20:26)
[2021-03-29] MEDS ORDERED: Ondansetron 4 MG Tab PO PRN (11:15)
--- NOTE | 2021-03-29 17:38 | PCM.PN ---
- General Info Date of Service: 03/29/21 Subjective Update: 20-year-old female admitted with UC flare/UTI. States symptoms are much improved however still continues to complain of intermittent pain described as 7 out of 10 on the pain scale. Denies any alleviating or aggravating factors. No longer bleeding per rectally, seen and examined at bedside sitting up in bed eating breakfast. All questions and concerns were addressed at bedside. Functional Status: Reports: Pain Controlled - Review of Systems General: Reports: No Symptoms HEENT: Reports: No Symptoms Pulmonary: Reports: No Symptoms Cardiovascular: Reports: No Symptoms Gastrointestinal: Reports: Nausea, Vomiting Genitourinary: Reports: No Symptoms Musculoskeletal: Reports: No Symptoms Skin: Reports: No Symptoms Neurological: Reports: No Symptoms Psychiatric: Reports: No Symptoms - Patient Data Vitals - Most Recent: Last Vital Signs Temp 98.3 F 03/29/21 11:47 Pulse 70 03/29/21 11:47 Resp 12 03/29/21 11:47 BP 100/60 03/29/21 11:47 Pulse Ox 98 03/29/21 11:47 Weight - Most Recent: 119 lb I&O - Last 24 Hours: Intake & Output 03/29/21 03/29/21 03/29/21 06:59 14:59 22:59 Intake Total 1050 Balance 1050 Rohit Results Last 24 Hours: Microbiology 03/26/21 11:07 Urine Culture - Final Urine Escherichia Coli 03/26/21 20:42 Stool Culture - Preliminary Stool / Feces Shiga Toxin I & II - Final Med Orders - Current: Current Medications Morphine Sulfate (Morphine 2 Mg/Ml Syringe) 2 mg IVPUSH Q3H PRN PRN Reason: Pain Last Admin: 03/28/21 22:22 Dose: 2 mg Documented by: Nitrofurantoin Macrocrystals (Nitrofurantoin Monohydrate/Macrocrystalline 100 Mg Cap) 100 mg PO BID DONNIE Last Admin: 03/29/21 08:36 Dose: 100 mg Documented by: Ondansetron HCl (Ondansetron 4 Mg Tab) 4 mg PO Q4H PRN PRN Reason: Nausea/Vomiting Last Admin: 03/29/21 11:48 Dose: 4 mg Documented by: Oxycodone HCl (Oxycodone 5 Mg Tab) 5 mg PO Q4H PRN PRN Reason: Pain Last Admin: 03/29/21 17:00 Dose: 5 mg Documented by: Discontinued Medications Hydromorphone HCl (Hydromorphone 1 Mg/Ml Syringe) 1 mg IVPUSH ONETIME ONE Stop: 03/26/21 12:10 Last Admin: 03/26/21 12:23 Dose: 1 mg Documented by: Sodium Chloride (Normal Saline) 1,000 mls @ 999 mls/hr IV .Bolus ONE Stop: 03/26/21 11:53 Last Admin: 03/26/21 11:09 Dose: 999 mls/hr Documented by: Ceftriaxone Sodium 1 gm/ (Sodium Chloride) 50 mls @ 100 mls/hr IV ONETIME ONE Stop: 03/26/21 12:39 Last Admin: 03/26/21 12:23 Dose: 100 mls/hr Documented by: Sodium Chloride (Normal Saline) 1,000 mls @ 125 mls/hr IV .Bolus ONE Stop: 03/26/21 21:23 Last Admin: 03/26/21 13:46 Dose: 125 mls/hr Documented by: Ceftriaxone Sodium 1 gm/ (Sodium Chloride) 50 mls @ 100 mls/hr IV Q24H [facility] Last Admin: 03/27/21 11:52 Dose: 100 mls/hr Documented by: Metronidazole 500 mg/ Premix 100 mls @ 100 mls/hr IV QID [facility] Last Admin: 03/27/21 12:27 Dose: 100 mls/hr Documented by: Sodium Chloride (Normal Saline) 1,000 mls @ 125 mls/hr IV ASDIRECTED [facility] Last Admin: 03/28/21 11:24 Dose: 125 mls/hr Documented by: Magnesium Sulfate 2 gm/ Premix 50 mls @ 25 mls/hr IV ONETIME ONE Stop: 03/28/21 13:59 Last Admin: 03/28/21 12:59 Dose: 25 mls/hr Documented by: Methylprednisolone Sodium Succinate (Methylprednisolone Sodium Succinate 125 Mg/2 Ml Sdv) 125 mg IVPUSH ONETIME ONE Stop: 03/26/21 10:59 Last Admin: 03/26/21 11:09 Dose: 125 mg Documented by: Methylprednisolone Sodium Succinate (Methylprednisolone Sodium Succinate 40 Mg/1 Ml Sdv) 40 mg IVPUSH DAILY [facility] Last Admin: 03/27/21 08:43 Dose: 40 mg Documented by: Metronidazole (Metronidazole 250 Mg Tab) 500 mg PO ONETIME ONE Stop: 03/26/21 12:11 Last Admin: 03/26/21 12:22 Dose: 500 mg Documented by: Morphine Sulfate (Morphine 4 Mg/Ml Vial) 4 mg IVPUSH ONETIME ONE Stop: 03/26/21 10:59 Last Admin: 03/26/21 11:09 Dose: 4 mg Documented by: Ondansetron HCl (Ondansetron 4 Mg/2 Ml Sdv) 4 mg IVPUSH ONETIME ONE Stop: 03/26/21 10:59 Last Admin: 03/26/21 11:09 Dose: 4 mg Documented by: Vancomycin HCl (Vancomycin 125 Mg Cap) 125 mg PO QID DONNIE Last Admin: 03/28/21 11:24 Dose: 125 mg Documented by: - Exam General: Alert, Oriented, Cooperative, No Acute Distress HEENT: Pupils Equal, Pupils Reactive, EOMI Lungs: Clear to Auscultation, Normal Respiratory Effort Cardiovascular: Regular Rate, Regular Rhythm GI/Abdominal Exam: Normal Bowel Sounds, Soft, Non-Tender, No Distention, No Abnormal Bruit, No Mass Extremities: Normal Inspection, Normal Range of Motion, No Pedal Edema, Normal Capillary Refill Peripheral Pulses: 2+: Carotid (L), Carotid (R), Posterior Tibial (L), Posterior Tibial (R) Neurological: No New Focal Deficit Psy/Mental Status: Alert, Normal Affect, Normal Mood - Patient Data Result Diagrams: 03/28/21 05:37 03/28/21 05:37 Rohit Results Last 24 hrs: Microbiology 03/26/21 11:07 Urine Culture - Final Urine Escherichia Coli 03/26/21 20:42 Stool Culture - Preliminary Stool / Feces Shiga Toxin I & II - Final Sepsis Event Note - Evaluation Sepsis Screening Result: No Definite Risk - Focused Exam Vital Signs: Vital Signs Temp Pulse Resp BP Pulse Ox 03/29/21 11:47 98.3 F 70 12 100/60 98 03/29/21 08:00 98.5 F 80 14 119/73 100 - Problem List & Annotations (1) Urinary tract infection SNOMED Code(s): 99340533 Code(s): N39.0 - URINARY TRACT INFECTION, SITE NOT SPECIFIED Status: Acute Current Visit: Yes (2) Ulcerative colitis SNOMED Code(s): 01973762 Code(s): K51.90 - ULCERATIVE COLITIS, UNSPECIFIED, WITHOUT COMPLICATIONS Status: Chronic Current Visit: Yes Qualifiers: Ulcerative colitis location: ulcerative pancolitis Digestive disease complication type: with rectal bleeding Qualified Code(s): K51.011 - Ulcerative (chronic) pancolitis with rectal bleeding (3) Abdominal pain SNOMED Code(s): 41103304 Code(s): R10.9 - UNSPECIFIED ABDOMINAL PAIN Status: Acute Priority: Medium Current Visit: No Qualifiers: Abdominal location: generalized Qualified Code(s): R10.84 - Generalized abdominal pain (4) C. difficile diarrhea SNOMED Code(s): 3338754575187 Code(s): A04.72 - ENTEROCOLITIS D/T CLOSTRIDIUM DIFFICILE, NOT SPCF RECUR Status: Acute Current Visit: No - Problem List Review Problem List Initiated/Reviewed/Updated: Yes - My Orders Last 24 Hours: My Active Orders 03/29/21 Lunch Clear Liquid Diet [DIET] 03/29/21 11:15 Ondansetron [Zofran] 4 mg PO Q4H PRN - Plan Plan:: 20-year-old female admitted for UC flare/UTI. 1. UC flare: Vitally stable, endorses intermittent abdominal pain, no longer bleeding per rectally. Per GI specialist in [place] was advised to discontinue Solu-Medrol as patient no longer has colon since 2019. States that inflammation may be common complication of rectal component left as a part of the J-pouch procedure. Patient was tolerating p.o. and medically ready for discharge, however started having return of abdominal discomfort and vomited. Therefore, changed diet to clear liquid diet. If symptoms improve, patient will likely discharge home [place]. 5 mg oxycodone every 4 as needed for pain/morphine as needed for pain Zofran 4 mg, every 4 hours as needed for nausea To closely follow-up with GI specialist/gastric surgeon at [place] [facility] following hospital discharge. 2. UTI: nitrofurantoin for 3 days 100 mg twice daily. 3. C. difficile: Asymptomatic, no increase in ostomy bag changes, unable to have bowel movements therefore no diarrhea, therefore, discontinued treatment per GI recommendations. Disposition: Patient will likely discharge home tomorrow
[2021-03-29] MEDS: Morphine 2 MG/ML SYRINGE IVPUSH PRN (20:25)
[2021-03-30] MEDS: oxyCODONE 5 MG Tab PO PRN (05:45)
[2021-03-30 06:07] LABS: BLOOD UREA NITROGEN,BUN 8 mg/dL (7.0-18.0); CARBON DIOXIDE,CO2 26.3 mmol/L (21.0-32.0); CHLORIDE,CL 102 mmol/L (98-107); GLUCOSE RANDOM 82 mg/dL (74-106); POTASSIUM,K 3.7 mmol/L (3.5-5.1); SODIUM,NA 135 mmol/L (136-145)
[2021-03-30] MEDS: Nitrofurantoin Monohydrate/Macrocrystalline 100 MG Cap PO SCH (09:53)
[2021-03-30] MEDS ORDERED: methylPREDNISolone Sodium Succinate 125 MG/2 ML SDV IVPUSH ONE (11:38)
--- NOTE | 2021-03-30 18:29 | PCM.DCSUM1 ---
<Michalea Hicks - Last Filed: 03/30/21 18:24> Discharge Summary - Hospital Course HPI Initial Comments: 20 yo female with pmh of ulcerative colitis s/p colectomy with colostomy, who presents with one day history of abdominal pain, fevers and chills. She reports blood mixed in her regular anal discharge. Brief History: History of UC status post colectomy with J-pouch August 2019. Admitted with abdominal pain, chills with blood per rectally. Found to have UTI treated with antibiotics. Found to be C. difficile positive, however per GI specialist Dr. Calabrese at [facility] in [facility]. Encouraged to only treat UTI with antibiotics. Discontinue steroids and C. difficile treatment as patient no longer has a colon. States that blood was likely due to irritation of pouch. Diagnosis: Stroke: No - Discharge Data Discharge Date: 03/30/21 Discharge Disposition: Home, Self-Care 01 Condition: Good - Referral to Home Health Primary Care Physician: Roddy Allen MD - Discharge Diagnosis/Problem(s) (1) Urinary tract infection SNOMED Code(s): 95069182 ICD Code: N39.0 - URINARY TRACT INFECTION, SITE NOT SPECIFIED Status: Acute (2) Ulcerative colitis SNOMED Code(s): 65224229 ICD Code: K51.90 - ULCERATIVE COLITIS, UNSPECIFIED, WITHOUT COMPLICATIONS Status: Chronic Qualifiers: Ulcerative colitis location: ulcerative pancolitis Digestive disease complication type: with rectal bleeding Qualified Code(s): K51.011 - Ulcerative (chronic) pancolitis with rectal bleeding (3) Abdominal pain SNOMED Code(s): 26594563 ICD Code: R10.9 - UNSPECIFIED ABDOMINAL PAIN Status: Acute Priority: Medium Qualifiers: Abdominal location: generalized Qualified Code(s): R10.84 - Generalized abdominal pain (4) C. difficile diarrhea SNOMED Code(s): 0506103901765 ICD Code: A04.72 - ENTEROCOLITIS D/T CLOSTRIDIUM DIFFICILE, NOT SPCF RECUR Status: Acute - Patient Summary/Data Hospital Course: Pt was admitted for abdominal pain accosiated with possible UC flare and UTI. Gi in [facility] and [facility] were consulted. It was recommended to only treat UTI. Completed full course of antibiotics while in hospital. Sent home with pain medication and 5 days of prednisone. Pt is to closely follow up with GI at [facility]. - Patient Instructions Diet: Usual Diet as Tolerated Activity: As Tolerated Driving: May Drive Today Showering/Bathing: May Shower Notify Provider of: Fever, Increased Pain, Swelling and Redness, Drainage, Nausea and/or Vomiting Other/Special Instructions: return top hospital in the event you develop fever, chills, abdominal pain, inability to tolerate food , or experience and bloody stools. - Discharge Plan *PRESCRIPTION DRUG MONITORING PROGRAM REVIEWED*: Not Applicable *COPY OF PRESCRIPTION DRUG MONITORING REPORT IN PATIENT MEJIA: Not Applicable Prescriptions/Med Rec: predniSONE 40 mg PO WITHBREAKFAST 5 Days #5 tab Tobacco Cessation Medication: Prescription Given Home Medications: Home Meds predniSONE 40 mg PO WITHBREAKFAST 5 Days #5 tab 03/30/21 [Rx] Oxygen Therapy Mode: Room Air Patient Handouts: Urinary Tract Infection, Adult, [id number], Ulcerative Colitis, Adult, Prednisone tablets Referrals: Roddy Allen MD [Primary Care Provider] - 04/07/21 1:00 pm - Discharge Summary/Plan Comment DC Time >30 min.: No Total # of Minutes for Discharge Time: 15 minutes - Patient Data Vitals - Most Recent: Last Vital Signs Temp 98.7 F 03/30/21 11:57 Pulse 82 03/30/21 11:57 Resp 16 03/30/21 11:57 BP 93/55 L 03/30/21 11:57 Pulse Ox 97 03/30/21 11:57 Weight - Most Recent: 53.977 kg I&O - Last 24 hours: Intake & Output 03/30/21 03/30/21 03/30/21 06:59 14:59 22:59 Intake Total 400 Output Total 300 Balance 100 Lab Results - Last 24 hrs: Laboratory Results - last 24 hr 03/30/21 03/30/21 Range/Units 05:35 05:35 WBC 5.96 (4.0-11.0) K/uL RBC 4.71 (4.30-5.90) M/uL Hgb 10.3 L (12.0-16.0) g/dL Hct 33.2 L (36.0-46.0) % MCV 70.5 L (80.0-98.0) fL MCH 21.9 L (27.0-32.0) pg MCHC 31.0 (31.0-37.0) g/dL RDW Std Deviation 43.5 (28.0-62.0) fl RDW Coeff of Buck 17 H (11.0-15.0) % Plt Count 418 H (150-400) K/uL MPV 10.10 (7.40-12.00) fL Neut % (Auto) 58.0 (48.0-80.0) % Lymph % (Auto) 23.7 (16.0-40.0) % Coffee % (Auto) 14.1 (0.0-15.0) % Eos % (Auto) 3.7 (0.0-7.0) % Baso % (Auto) 0.5 (0.0-1.5) % Neut # (Auto) 3.5 (1.4-5.7) K/uL Lymph # (Auto) 1.4 (0.6-2.4) K/uL Coffee # (Auto) 0.8 (0.0-0.8) K/uL Eos # (Auto) 0.2 (0.0-0.7) K/uL Baso # (Auto) 0.0 (0.0-0.1) K/uL Nucleated RBC % 0.0 /100WBC Nucleated RBCs # 0 K/uL Sodium 135 L (136-145) mmol/L Potassium 3.7 (3.5-5.1) mmol/L Chloride 102 (98-107) mmol/L Carbon Dioxide 26.3 (21.0-32.0) mmol/L BUN 8 (7.0-18.0) mg/dL Creatinine 0.8 (0.6-1.0) mg/dL Est Cr Clr Drug Dosing 93.99 mL/min Estimated GFR (MDRD) > 60.0 ml/min Glucose 82 (74-106) mg/dL Calcium 8.7 (8.5-10.1) mg/dL Total Bilirubin 0.2 (0.2-1.0) mg/dL AST 19 (15-37) IU/L ALT 22 (14-63) IU/L Alkaline Phosphatase 84 (46-116) U/L Total Protein 7.5 (6.4-8.2) g/dL Albumin 3.3 L (3.4-5.0) g/dL Globulin 4.2 H (2.6-4.0) g/dL Albumin/Globulin Ratio 0.8 L (0.9-1.6) JERO Results - Last 24 hrs: Microbiology 03/26/21 20:42 Stool Culture - Final Stool / Feces Shiga Toxin I & II - Final Med Orders - Current: Current Medications Discontinued Medications Hydromorphone HCl (Hydromorphone 1 Mg/Ml Syringe) 1 mg IVPUSH ONETIME ONE Stop: 03/26/21 12:10 Last Admin: 03/26/21 12:23 Dose: 1 mg Documented by: Sodium Chloride (Normal Saline) 1,000 mls @ 999 mls/hr IV .Bolus ONE Stop: 03/26/21 11:53 Last Admin: 03/26/21 11:09 Dose: 999 mls/hr Documented by: Ceftriaxone Sodium 1 gm/ (Sodium Chloride) 50 mls @ 100 mls/hr IV ONETIME ONE Stop: 03/26/21 12:39 Last Admin: 03/26/21 12:23 Dose: 100 mls/hr Documented by: Sodium Chloride (Normal Saline) 1,000 mls @ 125 mls/hr IV .Bolus ONE Stop: 03/26/21 21:23 Last Admin: 03/26/21 13:46 Dose: 125 mls/hr Documented by: Ceftriaxone Sodium 1 gm/ (Sodium Chloride) 50 mls @ 100 mls/hr IV Q24H [facility] Last Admin: 03/27/21 11:52 Dose: 100 mls/hr Documented by: Metronidazole 500 mg/ Premix 100 mls @ 100 mls/hr IV QID [facility] Last Admin: 03/27/21 12:27 Dose: 100 mls/hr Documented by: Sodium Chloride (Normal Saline) 1,000 mls @ 125 mls/hr IV ASDIRECTED [facility] Last Admin: 03/28/21 11:24 Dose: 125 mls/hr Documented by: Magnesium Sulfate 2 gm/ Premix 50 mls @ 25 mls/hr IV ONETIME ONE Stop: 03/28/21 13:59 Last Admin: 03/28/21 12:59 Dose: 25 mls/hr Documented by: Methylprednisolone Sodium Succinate (Methylprednisolone Sodium Succinate 125 Mg/2 Ml Sdv) 125 mg IVPUSH ONETIME ONE Stop: 03/26/21 10:59 Last Admin: 03/26/21 11:09 Dose: 125 mg Documented by: Methylprednisolone Sodium Succinate (Methylprednisolone Sodium Succinate 40 Mg/1 Ml Sdv) 40 mg IVPUSH DAILY [facility] Last Admin: 03/27/21 08:43 Dose: 40 mg Documented by: Methylprednisolone Sodium Succinate (Methylprednisolone Sodium Succinate 125 Mg/2 Ml Sdv) 125 mg IVPUSH ONETIME ONE Stop: 03/30/21 11:39 Last Admin: 03/30/21 11:54 Dose: 125 mg Documented by: Metronidazole (Metronidazole 250 Mg Tab) 500 mg PO ONETIME ONE Stop: 03/26/21 12:11 Last Admin: 03/26/21 12:22 Dose: 500 mg Documented by: Morphine Sulfate (Morphine 4 Mg/Ml Vial) 4 mg IVPUSH ONETIME ONE Stop: 03/26/21 10:59 Last Admin: 03/26/21 11:09 Dose: 4 mg Documented by: Morphine Sulfate (Morphine 2 Mg/Ml Syringe) 2 mg IVPUSH Q3H PRN PRN Reason: Pain Last Admin: 03/29/21 20:25 Dose: 2 mg Documented by: Nitrofurantoin Macrocrystals (Nitrofurantoin Monohydrate/Macrocrystalline 100 Mg Cap) 100 mg PO BID [facility] Last Admin: 03/30/21 09:53 Dose: 100 mg Documented by: Ondansetron HCl (Ondansetron 4 Mg/2 Ml Sdv) 4 mg IVPUSH ONETIME ONE Stop: 03/26/21 10:59 Last Admin: 03/26/21 11:09 Dose: 4 mg Documented by: Ondansetron HCl (Ondansetron 4 Mg Tab) 4 mg PO Q4H PRN PRN Reason: Nausea/Vomiting Last Admin: 03/29/21 11:48 Dose: 4 mg Documented by: Oxycodone HCl (Oxycodone 5 Mg Tab) 5 mg PO Q4H PRN PRN Reason: Pain Last Admin: 03/30/21 05:45 Dose: 5 mg Documented by: Vancomycin HCl (Vancomycin 125 Mg Cap) 125 mg PO QID [facility] Last Admin: 03/28/21 11:24 Dose: 125 mg Documented by: <Too Madrigal - Last Filed: 04/01/21 14:00> Discharge Summary - Hospital Course HPI Initial Comments: I have seen and evaluated the patient and agree with the residents note unless specified in my note - Referral to Home Health Primary Care Physician: Roddy Allen MD - Patient Data Vitals - Most Recent: Last Vital Signs Temp 37.1 C 03/30/21 11:57 Pulse 82 03/30/21 11:57 Resp 16 03/30/21 11:57 BP 93/55 L 03/30/21 11:57 Pulse Ox 97 03/30/21 11:57 Med Orders - Current: Current Medications Discontinued Medications Hydromorphone HCl (Hydromorphone 1 Mg/Ml Syringe) 1 mg IVPUSH ONETIME ONE Stop: 03/26/21 12:10 Last Admin: 03/26/21 12:23 Dose: 1 mg Documented by: Sodium Chloride (Normal Saline) 1,000 mls @ 999 mls/hr IV .Bolus ONE Stop: 03/26/21 11:53 Last Admin: 03/26/21 11:09 Dose: 999 mls/hr Documented by: Ceftriaxone Sodium 1 gm/ (Sodium Chloride) 50 mls @ 100 mls/hr IV ONETIME ONE Stop: 03/26/21 12:39 Last Admin: 03/26/21 12:23 Dose: 100 mls/hr Documented by: Sodium Chloride (Normal Saline) 1,000 mls @ 125 mls/hr IV .Bolus ONE Stop: 03/26/21 21:23 Last Admin: 03/26/21 13:46 Dose: 125 mls/hr Documented by: Ceftriaxone Sodium 1 gm/ (Sodium Chloride) 50 mls @ 100 mls/hr IV Q24H [facility] Last Admin: 03/27/21 11:52 Dose: 100 mls/hr Documented by: Metronidazole 500 mg/ Premix 100 mls @ 100 mls/hr IV QID [facility] Last Admin: 03/27/21 12:27 Dose: 100 mls/hr Documented by: Sodium Chloride (Normal Saline) 1,000 mls @ 125 mls/hr IV ASDIRECTED [facility] Last Admin: 03/28/21 11:24 Dose: 125 mls/hr Documented by: Magnesium Sulfate 2 gm/ Premix 50 mls @ 25 mls/hr IV ONETIME ONE Stop: 03/28/21 13:59 Last Admin: 03/28/21 12:59 Dose: 25 mls/hr Documented by: Methylprednisolone Sodium Succinate (Methylprednisolone Sodium Succinate 125 Mg/2 Ml Sdv) 125 mg IVPUSH ONETIME ONE Stop: 03/26/21 10:59 Last Admin: 03/26/21 11:09 Dose: 125 mg Documented by: Methylprednisolone Sodium Succinate (Methylprednisolone Sodium Succinate 40 Mg/1 Ml Sdv) 40 mg IVPUSH DAILY [facility] Last Admin: 03/27/21 08:43 Dose: 40 mg Documented by: Methylprednisolone Sodium Succinate (Methylprednisolone Sodium Succinate 125 Mg/2 Ml Sdv) 125 mg IVPUSH ONETIME ONE Stop: 03/30/21 11:39 Last Admin: 03/30/21 11:54 Dose: 125 mg Documented by: Metronidazole (Metronidazole 250 Mg Tab) 500 mg PO ONETIME ONE Stop: 03/26/21 12:11 Last Admin: 03/26/21 12:22 Dose: 500 mg Documented by: Morphine Sulfate (Morphine 4 Mg/Ml Vial) 4 mg IVPUSH ONETIME ONE Stop: 03/26/21 10:59 Last Admin: 03/26/21 11:09 Dose: 4 mg Documented by: Morphine Sulfate (Morphine 2 Mg/Ml Syringe) 2 mg IVPUSH Q3H PRN PRN Reason: Pain Last Admin: 03/29/21 20:25 Dose: 2 mg Documented by: Nitrofurantoin Macrocrystals (Nitrofurantoin Monohydrate/Macrocrystalline 100 Mg Cap) 100 mg PO BID [facility] Last Admin: 03/30/21 09:53 Dose: 100 mg Documented by: Ondansetron HCl (Ondansetron 4 Mg/2 Ml Sdv) 4 mg IVPUSH ONETIME ONE Stop: 03/26/21 10:59 Last Admin: 03/26/21 11:09 Dose: 4 mg Documented by: Ondansetron HCl (Ondansetron 4 Mg Tab) 4 mg PO Q4H PRN PRN Reason: Nausea/Vomiting Last Admin: 03/29/21 11:48 Dose: 4 mg Documented by: Oxycodone HCl (Oxycodone 5 Mg Tab) 5 mg PO Q4H PRN PRN Reason: Pain Last Admin: 03/30/21 05:45 Dose: 5 mg Documented by: Vancomycin HCl (Vancomycin 125 Mg Cap) 125 mg PO QID [facility] Last Admin: 03/28/21 11:24 Dose: 125 mg Documented by:
== END 2021-03-30 15:15 | disposition home or self-care (01) | DRG 386 ==
LOC: MW.ED 10:40 → MW.MS 14:10 → OBSVTOIN 14:10 → MW.MS 03-29 18:53
PROVIDERS: ADMIT Internal Medicine; ATTEND Internal Medicine
DX: K51.011 Ulcerative (chronic) pancolitis with rectal bleeding (principal); N39.0 Urinary tract infection, site not specified; K91.858 Other complications of intestinal pouch; A04.72 Enterocolitis due to Clostridium difficile, not specified as recurrent; E83.42 Hypomagnesemia; Z90.49 Acquired absence of other specified parts of digestive tract; D64.9 Anemia, unspecified; F90.9 Attention-deficit hyperactivity disorder, unspecified type; Z20.822 Contact with and (suspected) exposure to COVID-19
CPT/HCPCS: 36415; 74177; 74177-26; 80048; 80053; 81001; 83605; 83690; 83735; 84100; 84703; 85025; 85027; 86140; 87045; 87046; 87086; 87088; 87186; 87324; 87449; 87493; 87899; 96365; 96366; 96367; 96375; 96376; 99285-25; A9270-GY; G0378; J0696; J1170; J2270; J2405; J2920; J2930; J3475; J3490; J7030; U0002

== ENCOUNTER 2021-05-17 20:32 | Emergency (ER) | payer MEDICAID | END 2021-05-17 21:55 | disposition left against medical advice (07) | LOC: MW.ED 20:32 | DX: Z53.21 Procedure and treatment not carried out due to patient leaving prior to being seen by health care provider (principal) ==

== ENCOUNTER 2021-06-11 11:15 | Emergency (ER) | payer MEDICAID ==
[2021-06-11] MEDS ORDERED: Ondansetron 4 MG/2 ML SDV IVPUSH ONE ×3 (11:27→13:49)
[2021-06-11] MEDS ORDERED: methylPREDNISolone Sodium Succinate 125 MG/2 ML SDV IVPUSH ONE (11:27)
[2021-06-11] MEDS ORDERED: HYDROmorphone 1 MG/ML Syringe IVPUSH ONE ×3 (11:27→13:49)
[2021-06-11] MEDS ORDERED: Sodium Chloride 0.9% 1,000 ML IV ONE ×2 (11:27→12:34)
[2021-06-11 12:41] LABS: BLOOD UREA NITROGEN,BUN 14 mg/dL (7.0-18.0); CARBON DIOXIDE,CO2 21.7 mmol/L (21.0-32.0); CHLORIDE,CL 101 mmol/L (98-107); GLUCOSE RANDOM 88 mg/dL (74-106); POTASSIUM,K 3.3 mmol/L (3.5-5.1); SODIUM,NA 135 mmol/L (136-145)
[2021-06-11] MEDS ORDERED: Iopamidol 755 Mg/ML 100 ML Bottle IVPUSH ONE (17:15)
== END 2021-06-11 15:54 | disposition home or self-care (01) ==
LOC: MW.ED 11:15
DX: K51.919 Ulcerative colitis, unspecified with unspecified complications (principal); Z20.822 Contact with and (suspected) exposure to COVID-19; Z90.49 Acquired absence of other specified parts of digestive tract
CPT/HCPCS: 36415; 74177; 80053; 81001; 81025; 85025; 86140; 87635; 96374; 96375; 96376; 99284; J1170; J2405; J2930; J7030; Q9967; U0002

== ENCOUNTER 2021-06-16 19:19 | Inpatient (IN) | payer MEDICAID ==
[2021-06-16] MEDS ORDERED: Ondansetron 4 MG/2 ML SDV IVPUSH ONE (20:12)
[2021-06-16] MEDS ORDERED: Sodium Chloride 0.9% 2.5 ML Syringe FLUSH PRN (20:12)
[2021-06-16] MEDS ORDERED: Sodium Chloride 0.9% 10 ML Syringe FLUSH PRN (20:12)
[2021-06-16] MEDS ORDERED: Sodium Chloride 0.9% 1,000 ML IV ONE (20:12)
[2021-06-16] MEDS ORDERED: fentaNYL 50 MCG/ML SDV IVPUSH ONE ×2 (20:50→22:42)
[2021-06-16] MEDS ORDERED: Ketorolac 30 MG/ML SDV IVPUSH ONE (20:50)
[2021-06-16 21:09] LABS: BLOOD UREA NITROGEN,BUN 13 mg/dL (7.0-18.0); CARBON DIOXIDE,CO2 24.8 mmol/L (21.0-32.0); CHLORIDE,CL 103 mmol/L (98-107); GLUCOSE RANDOM 113 mg/dL (74-106); POTASSIUM,K 3.6 mmol/L (3.5-5.1); SODIUM,NA 138 mmol/L (136-145)
[2021-06-16] MEDS ORDERED: Iopamidol 755 MG/ML 500 ML Multipack Bottle IVPUSH STA (22:00)
[2021-06-17] MEDS ORDERED: metroNIDAZOLE/Normal Saline 500 MG in Premix Bag 1 BAG IV ONE (00:17)
[2021-06-17] MEDS ORDERED: cefTRIAXone 1 GM in Sodium Chloride 0.9% 50 ML IV ONE (00:17)
[2021-06-17] MEDS ORDERED: HYDROmorphone 1 MG/ML Syringe IVPUSH ONE (00:55)
[2021-06-17] MEDS ORDERED: Sodium Chloride 0.9% 2.5 ML Syringe FLUSH PRN (07:52)
[2021-06-17] MEDS ORDERED: Sodium Chloride 0.9% 10 ML Syringe FLUSH PRN (07:52)
[2021-06-17] MEDS: Morphine 4 MG/ML VIAL IVPUSH PRN ×2 (08:37→20:28)
[2021-06-17] MEDS: Lactated Ringers 1,000 ML IV SCH ×3 (08:37→23:05)
[2021-06-17] MEDS ORDERED: cefTRIAXone 1 GM in Sodium Chloride 0.9% 50 ML IV SCH ×2 (09:30→23:00)
[2021-06-17 10:23] LABS: BLOOD UREA NITROGEN,BUN 14 mg/dL (7.0-18.0); CARBON DIOXIDE,CO2 24.6 mmol/L (21.0-32.0); CHLORIDE,CL 106 mmol/L (98-107); GLUCOSE RANDOM 85 mg/dL (74-106); SODIUM,NA 139 mmol/L (136-145)
[2021-06-17] MEDS: oxyCODONE 5 MG Tab PO PRN ×3 (11:06→23:06)
[2021-06-17] MEDS ORDERED: Ondansetron 4 MG/2 ML SDV IVPUSH PRN (22:46)
[2021-06-18] MEDS: Morphine 4 MG/ML VIAL IVPUSH PRN (06:37)
[2021-06-18 08:05] LABS: BLOOD UREA NITROGEN,BUN 9 mg/dL (7.0-18.0); CARBON DIOXIDE,CO2 25.7 mmol/L (21.0-32.0); CHLORIDE,CL 103 mmol/L (98-107); GLUCOSE RANDOM 80 mg/dL (74-106); POTASSIUM,K 4.1 mmol/L (3.5-5.1); SODIUM,NA 137 mmol/L (136-145)
[2021-06-18] MEDS: Lactated Ringers 1,000 ML IV SCH (08:10)
== END 2021-06-18 13:40 | disposition home or self-care (01) | DRG 386 ==
LOC: MW.ED 19:19 → MW.MS 06-17 00:18
PROVIDERS: ADMIT Internal Medicine; ATTEND Internal Medicine
DX: K51.90 Ulcerative colitis, unspecified, without complications (principal); N39.0 Urinary tract infection, site not specified; F90.9 Attention-deficit hyperactivity disorder, unspecified type; D64.9 Anemia, unspecified; Z20.822 Contact with and (suspected) exposure to COVID-19; Z79.52 Long term (current) use of systemic steroids; Z79.899 Other long term (current) drug therapy; Z90.49 Acquired absence of other specified parts of digestive tract
CPT/HCPCS: 36415; 74177; 74177-26; 80048; 80053; 81001; 81025; 83735; 85025; 87086; 87088; 87186; 96374; 96375; 96376; 99283; 99285-25; A9270-GY; J0696; J1170; J1885; J2270; J2405; J3010; J3490; J7030; J7120; Q9967; U0002

== ENCOUNTER 2021-07-28 16:03 | Emergency (ER) | payer MEDICAID ==
[2021-07-28] MEDS ORDERED: Ondansetron 4 MG/2 ML SDV IVPUSH ONE (16:34)
[2021-07-28] MEDS ORDERED: Sodium Chloride 0.9% 1,000 ML IV ONE (16:34)
[2021-07-28] MEDS ORDERED: Morphine 4 MG/ML VIAL IVPUSH ONE (16:34)
[2021-07-28 17:15] LABS: BLOOD UREA NITROGEN,BUN 11 mg/dL (7.0-18.0); CARBON DIOXIDE,CO2 24.8 mmol/L (21.0-32.0); CHLORIDE,CL 101 mmol/L (98-107); GLUCOSE RANDOM 96 mg/dL (74-106); LIPASE 81 U/L (73-393); POTASSIUM,K 3.3 mmol/L (3.5-5.1); SODIUM,NA 138 mmol/L (136-145)
[2021-07-28] MEDS ORDERED: Iopamidol 755 MG/ML 500 ML Multipack Bottle IVPUSH STA (17:51)
== END 2021-07-28 19:44 | disposition home or self-care (01) ==
LOC: MW.ED 16:03
DX: R10.84 Generalized abdominal pain (principal); Z20.822 Contact with and (suspected) exposure to COVID-19
CPT/HCPCS: 36415; 74177; 80053; 81001; 81025; 83690; 85025; 87635; 96374; 96375; 99284; J2270; J2405; J7030; Q9967; U0002

== ENCOUNTER 2021-08-07 13:06 | Emergency (ER) | payer MEDICAID ==
[2021-08-07] MEDS ORDERED: Ondansetron 4 MG/2 ML SDV IVPUSH ONE (13:50)
[2021-08-07] MEDS ORDERED: Morphine 4 MG/ML VIAL IVPUSH ONE (13:52)
[2021-08-07] MEDS ORDERED: Dextrose 5%-Lactated Ringers 1,000 ML IV SCH (14:00)
[2021-08-07 14:52] LABS: BLOOD UREA NITROGEN,BUN 9 mg/dL (7.0-18.0); CARBON DIOXIDE,CO2 23.9 mmol/L (21.0-32.0); CHLORIDE,CL 103 mmol/L (98-107); GLUCOSE RANDOM 88 mg/dL (74-106); POTASSIUM,K 3.7 mmol/L (3.5-5.1); SODIUM,NA 140 mmol/L (136-145)
[2021-08-07 15:42] LABS: CORONAVIRUS COVID-19 NAA NEGATIVE (NEGATIVE); INFLUENZA A NAA NEGATIVE (NEGATIVE); INFLUENZA B NAA NEGATIVE (NEGATIVE)
== END 2021-08-07 17:16 | disposition home or self-care (01) ==
LOC: MW.ED 13:06
DX: K52.9 Noninfective gastroenteritis and colitis, unspecified (principal); Z20.822 Contact with and (suspected) exposure to COVID-19
CPT/HCPCS: 0240U; 36415; 80053; 81001; 83605; 85025; 85610; 87324; 96361; 96374; 96375; 99284; J2270; J2405; J7121

== ENCOUNTER 2021-09-17 12:55 | Emergency (ER) | payer MEDICAID ==
[2021-09-17 14:58] LABS: CARBON DIOXIDE,CO2 23.8 mmol/L (21.0-32.0); POTASSIUM,K 3.6 mmol/L (3.5-5.1)
[2021-09-17] MEDS ORDERED: Morphine 4 MG/ML VIAL IVPUSH ONE (17:43)
[2021-09-17] MEDS ORDERED: Ondansetron 4 MG/2 ML SDV IVPUSH ONE (17:44)
[2021-09-17] MEDS ORDERED: Iopamidol 755 MG/ML 500 ML Multipack Bottle IVPUSH STA (17:47)
[2021-09-17 18:21] LABS: C. TRACHOMATIS BY PCR NOT DETECTED; N. GONORRHOEAE BY PCR NOT DETECTED
== END 2021-09-17 19:13 | disposition home or self-care (01) ==
LOC: MW.ED 12:55
DX: N76.0 Acute vaginitis (principal); B96.89 Other specified bacterial agents as the cause of diseases classified elsewhere
CPT/HCPCS: 36415; 74177; 76830; 80053; 81001; 83690; 84703; 85025; 87480; 87491; 87510; 87591; 87660; 96374; 96375; 99284; J2270; J2405; Q9967

== ENCOUNTER 2021-09-24 22:15 | Emergency (ER) | payer MEDICAID ==
[2021-09-25] MEDS ORDERED: Sodium Chloride 0.9% 1,000 ML IV ONE (00:34)
[2021-09-25] MEDS ORDERED: Ondansetron 4 MG/2 ML SDV IVPUSH ONE ×2 (00:34→02:38)
[2021-09-25] MEDS ORDERED: Sodium Chloride 0.9% 2.5 ML Syringe FLUSH PRN (00:34)
[2021-09-25] MEDS ORDERED: Sodium Chloride 0.9% 10 ML Syringe FLUSH PRN (00:34)
[2021-09-25] MEDS ORDERED: Morphine 4 MG/ML VIAL IVPUSH ONE (00:48)
[2021-09-25 01:00] LABS: CARBON DIOXIDE,CO2 25.4 mmol/L (21.0-32.0)
[2021-09-25] MEDS ORDERED: Iopamidol 755 MG/ML 500 ML Multipack Bottle IVPUSH ONE (01:21)
[2021-09-25] MEDS ORDERED: HYDROmorphone 1 MG/ML Syringe IVPUSH ONE (02:38)
== END 2021-09-25 04:11 | disposition home or self-care (01) ==
LOC: MW.ED 22:15
DX: K51.90 Ulcerative colitis, unspecified, without complications (principal)
CPT/HCPCS: 36415; 74177; 80053; 81001; 83605; 83690; 84703; 85025; 96361; 96374; 96375; 96376; 99284; J1170; J2270; J2405; J3490; J7030; Q9967

== ENCOUNTER 2021-10-09 20:30 | Emergency (ER) | payer MEDICAID ==
[2021-10-09] MEDS ORDERED: Ondansetron 4 MG Tab.DIS PO ONE (20:51)
== END 2021-10-09 21:42 | disposition home or self-care (01) ==
LOC: MW.ED 20:30
DX: B34.9 Viral infection, unspecified (principal); Z20.822 Contact with and (suspected) exposure to COVID-19
CPT/HCPCS: 87635; 99284; A9270; 99283; U0002

== ENCOUNTER 2021-10-29 09:59 | Emergency (ER) | payer MEDICAID ==
[2021-10-29] MEDS ORDERED: Sodium Chloride 0.9% 1,000 ML IV ONE (10:56)
[2021-10-29] MEDS ORDERED: Acetaminophen 500 MG Tab PO ONE (10:59)
[2021-10-29] MEDS ORDERED: Ondansetron 4 MG/2 ML SDV IVPUSH ONE ×2 (10:59→13:54)
[2021-10-29 11:24] LABS: CORONAVIRUS COVID-19 NAA POSITIVE (NEGATIVE)
[2021-10-29] MEDS ORDERED: Ketorolac 30 MG/ML SDV IVPUSH ONE (11:38)
[2021-10-29] MEDS ORDERED: Morphine 2 MG/ML SYRINGE IVPUSH ONE ×2 (11:44→13:01)
[2021-10-29 12:07] LABS: CARBON DIOXIDE,CO2 17.6 mmol/L (21.0-32.0); POTASSIUM,K 3.8 mmol/L (3.5-5.1)
[2021-10-29 12:53] LABS: INFLUENZA A NAA NEGATIVE (NEGATIVE); INFLUENZA B NAA NEGATIVE (NEGATIVE)
== END 2021-10-29 15:05 | disposition home or self-care (01) ==
LOC: MW.ED 09:59
DX: U07.1 COVID-19 (principal); E86.0 Dehydration; R19.7 Diarrhea, unspecified
CPT/HCPCS: 0240U; 36415; 71045; 74176; 80053; 82803; 84703; 85025; 87045; 87046; 87324; 87328; 87329; 87449; 87899; 93005; 96361; 96374; 96375; 96376; 99285; A9270; J2270; J2405; J7030; 87147; 93010; 99284

== ENCOUNTER 2022-09-08 13:08 | Emergency (ER) | payer MEDICAID ==
[2022-09-08] MEDS ORDERED: Ondansetron 4 MG/2 ML SDV IVPUSH ONE (13:47)
[2022-09-08] MEDS ORDERED: Ketorolac 30 MG/ML SDV IVPUSH ONE (13:47)
[2022-09-08] MEDS ORDERED: Sodium Chloride 0.9% 1,000 ML IV ONE ×2 (13:47→19:20)
[2022-09-08 14:56] LABS: BASOPHILS PERCENT AUTO 0.1 % (0.0-1.5); HEMATOCRIT 37.5 % (36.0-46.0); HEMOGLOBIN 12.3 g/dL (12.0-16.0); LYMPHOCYTES ABSOLUTE AUTO 1.3 K/uL (0.6-2.4); LYMPHOCYTES PERCENT AUTO 6.8 % (16.0-40.0); MEAN CORPUSCULAR HEMOGLOBIN 24.9 pg (27.0-32.0); MEAN CORPUSCULAR HGB CONC 32.8 g/dL (31.0-37.0); MEAN CORPUSCULAR VOLUME 76.1 fL (80.0-98.0); MONOCYTES ABSOLUTE AUTO 1.6 K/uL (0.0-0.8); MONOCYTES PERCENT AUTO 8.5 % (0.0-15.0); NEUTROPHILS ABSOLUTE AUTO 16.1 K/uL (1.4-5.7); NEUTROPHILS PERCENT AUTO 84.6 % (48.0-80.0); NRBC ABSOLUTE 0 K/uL; PLATELET COUNT,PLT 349 K/uL (150-400); RED BLOOD CELL COUNT 4.93 M/uL (4.30-5.90); WHITE BLOOD CELL COUNT,WBC 18.98 K/uL (4.0-11.0)
[2022-09-08 15:27] LABS: A/G RATIO 0.8 (0.9-1.6); ALBUMIN 3.9 g/dL (3.4-5.0); BILIRUBIN TOTAL 0.8 mg/dL (0.2-1.0); CALCIUM 9.5 mg/dL (8.5-10.1); CARBON DIOXIDE,CO2 20.9 mmol/L (21.0-32.0); CREATININE 0.8 mg/dL (0.6-1.0); EST CRCL DRUG DOSING (CG) 91.62 mL/min; POTASSIUM,K 3.5 mmol/L (3.5-5.1); PROTEIN TOTAL,TP 8.6 g/dL (6.4-8.2)
[2022-09-08 15:36] LABS: LACTIC ACID 1.8 mmol/L (0.4-2.0)
[2022-09-08] MEDS ORDERED: Morphine 4 MG/ML Syringe IVPUSH ONE (15:59)
[2022-09-08] MEDS ORDERED: Acetaminophen 500 MG Tab PO ONE (16:00)
[2022-09-08 16:21] LABS: BILIRUBIN,URINE NEGATIVE (NEGATIVE); COLOR,URINE YELLOW; GLUCOSE,URINE NEGATIVE (NEGATIVE); KETONES,URINE NEGATIVE (NEGATIVE); LEUKOCYTE ESTERASE,URINE NEGATIVE (NEGATIVE); NITRITE,URINE POSITIVE (NEGATIVE); OCCULT BLOOD,URINE MODERATE (NEGATIVE); PH,URINE 5.5 (5.0-8.0); PROTEIN,URINE 30 mg/dL (NEGATIVE); UROBILINOGEN,URINE 0.2 EU/dL (<2.0)
[2022-09-08 16:40] LABS: APPEARANCE,URINE HAZY; BACTERIA,URINE 2+ (NEGATIVE); EPITHELIAL CELLS,URINE OCCASIONAL (NONE-FEW); MUCUS,URINE MODERATE (NONE-MOD)
[2022-09-08] MEDS ORDERED: cefTRIAXone 1 GM in Sodium Chloride 0.9% 50 ML IV ONE (16:58)
[2022-09-08] MEDS ORDERED: Ibuprofen 600 MG Tab PO ONE (21:04)
[2022-09-08] MEDS ORDERED: Morphine 2 MG/ML SYRINGE IVPUSH ONE (21:04)
[2022-09-08] MEDS ORDERED: Acetaminophen 325 MG Tab PO ONE (22:14)
[2022-09-08] MEDS ORDERED: fentaNYL 50 MCG/ML SDV IVPUSH ONE (22:14)
[2022-09-08] MEDS ORDERED: Naloxone 0.4 MG/ML SDV IVPUSH PRN (22:14)
== END 2022-09-09 00:03 ==
LOC: MW.ED 13:08
DX: N20.0 Calculus of kidney (principal); N12 Tubulo-interstitial nephritis, not specified as acute or chronic; Z20.822 Contact with and (suspected) exposure to COVID-19
CPT/HCPCS: 36415; 71045; 74176; 80053; 81001; 81025; 83605; 85025; 87040; 87045; 87046; 87086; 87088; 87186; 87324; 87328; 87329; 87449; 87635; 87899; 96361; 96365; 96375; 99285; A9270; J0696; J1885; J2270; J2405; J3010; J3490; J7030; 87077; U0002

== ENCOUNTER 2022-09-17 00:58 | Emergency (ER) | payer MEDICAID ==
[2022-09-17] MEDS ORDERED: Ketorolac 30 MG/ML SDV IVPUSH ONE (05:07)
[2022-09-17] MEDS ORDERED: Sodium Chloride 0.9% 1,000 ML IV ONE (05:08)
[2022-09-17 05:12] LABS: BASOPHILS PERCENT AUTO 0.3 % (0.0-1.5); HEMATOCRIT 37.3 % (36.0-46.0); LYMPHOCYTES ABSOLUTE AUTO 1.3 K/uL (0.6-2.4); LYMPHOCYTES PERCENT AUTO 12.4 % (16.0-40.0); MEAN CORPUSCULAR HEMOGLOBIN 24.6 pg (27.0-32.0); MEAN CORPUSCULAR HGB CONC 32.2 g/dL (31.0-37.0); MEAN CORPUSCULAR VOLUME 76.4 fL (80.0-98.0); MONOCYTES ABSOLUTE AUTO 0.2 K/uL (0.0-0.8); MONOCYTES PERCENT AUTO 1.4 % (0.0-15.0); NEUTROPHILS PERCENT AUTO 85.9 % (48.0-80.0); NRBC ABSOLUTE 0 K/uL; NRBC PERCENT 0.1 /100WBC; PLATELET COUNT,PLT 581 K/uL (150-400); RED BLOOD CELL COUNT 4.88 M/uL (4.30-5.90); WHITE BLOOD CELL COUNT,WBC 10.53 K/uL (4.0-11.0)
[2022-09-17] MEDS: Morphine 4 MG/ML Syringe IVPUSH PRN ×2 (05:17→06:48)
[2022-09-17] MEDS ORDERED: Iopamidol 755 MG/ML 500 ML Multipack Bottle IVPUSH ONE (05:33)
[2022-09-17 05:35] LABS: A/G RATIO 0.8 (0.9-1.6); ALBUMIN 4.2 g/dL (3.4-5.0); BILIRUBIN TOTAL 0.3 mg/dL (0.2-1.0); CALCIUM 10.1 mg/dL (8.5-10.1); CARBON DIOXIDE,CO2 22.6 mmol/L (21.0-32.0); CREATININE 0.9 mg/dL (0.6-1.0); EST CRCL DRUG DOSING (CG) 81.44 mL/min; POTASSIUM,K 4.6 mmol/L (3.5-5.1); PROTEIN TOTAL,TP 9.6 g/dL (6.4-8.2)
[2022-09-17] MEDS ORDERED: Ondansetron 4 MG/2 ML SDV IVPUSH ONE (06:45)
[2022-09-17 06:48] LABS: APPEARANCE,URINE CLOUDY; BILIRUBIN,URINE NEGATIVE (NEGATIVE); COLOR,URINE YELLOW; GLUCOSE,URINE NEGATIVE (NEGATIVE); KETONES,URINE 40 mg/dL (NEGATIVE); LEUKOCYTE ESTERASE,URINE NEGATIVE (NEGATIVE); NITRITE,URINE NEGATIVE (NEGATIVE); OCCULT BLOOD,URINE LARGE (NEGATIVE); PROTEIN,URINE 30 mg/dL (NEGATIVE); UROBILINOGEN,URINE 0.2 EU/dL (<2.0)
[2022-09-17 06:58] LABS: BACTERIA,URINE RARE (NEGATIVE); EPITHELIAL CELLS,URINE RARE (NONE-FEW); MUCUS,URINE LIGHT (NONE-MOD); WBC,URINE 0-1 (0-5/HPF)
== END 2022-09-17 08:11 | disposition home or self-care (01) ==
LOC: MW.ED 00:58
DX: R10.9 Unspecified abdominal pain (principal); K63.89 Other specified diseases of intestine; Z79.899 Other long term (current) drug therapy
CPT/HCPCS: 36415; 74177; 80053; 81001; 83605; 83690; 85025; 87086; 96361; 96374; 96375; 96376; 99284; J1885; J2270; J2405; J7030; Q9967

== ENCOUNTER 2022-09-17 10:38 | Inpatient (IN) | payer MEDICAID ==
[2022-09-17] MEDS ORDERED: Sodium Chloride 0.9% 1,000 ML IV STA ×2 (11:17→12:54)
[2022-09-17] MEDS ORDERED: Sodium Chloride 0.9% 2.5 ML Syringe FLUSH PRN (11:17)
[2022-09-17] MEDS ORDERED: Sodium Chloride 0.9% 10 ML Syringe FLUSH PRN (11:17)
[2022-09-17] MEDS ORDERED: Morphine 2 MG/ML SYRINGE IVPUSH STA ×2 (11:18→12:53)
[2022-09-17] MEDS ORDERED: droPERidol 5 MG/2 ML SDV IVPUSH STA (12:06)
[2022-09-17] MEDS: Ciprofloxacin in D5W 400 MG in Premix Bag 1 BAG IV SCH ×2 (14:59)
[2022-09-17] MEDS: Morphine 2 MG/ML SYRINGE IVPUSH PRN ×3 (18:13→23:29)
[2022-09-17] MEDS: Ondansetron 4 MG/2 ML SDV IVPUSH PRN (19:50)
[2022-09-18] MEDS: Ciprofloxacin in D5W 400 MG in Premix Bag 1 BAG IV SCH ×2 (02:17)
[2022-09-18] MEDS: Ondansetron 4 MG/2 ML SDV IVPUSH PRN ×2 (04:52→10:04)
[2022-09-18] MEDS: Morphine 2 MG/ML SYRINGE IVPUSH PRN ×6 (04:57→23:39)
[2022-09-18 06:01] LABS: BASOPHILS ABSOLUTE AUTO 0.1 K/uL (0.0-0.1); BASOPHILS PERCENT AUTO 0.6 % (0.0-1.5); EOSINOPHILS ABSOLUTE AUTO 0.1 K/uL (0.0-0.7); EOSINOPHILS PERCENT AUTO 0.6 % (0.0-7.0); HEMATOCRIT 32.2 % (36.0-46.0); HEMOGLOBIN 9.9 g/dL (12.0-16.0); LYMPHOCYTES ABSOLUTE AUTO 4.2 K/uL (0.6-2.4); LYMPHOCYTES PERCENT AUTO 53.8 % (16.0-40.0); MEAN CORPUSCULAR HEMOGLOBIN 23.8 pg (27.0-32.0); MEAN CORPUSCULAR HGB CONC 30.7 g/dL (31.0-37.0); MEAN CORPUSCULAR VOLUME 77.4 fL (80.0-98.0); MONOCYTES ABSOLUTE AUTO 0.7 K/uL (0.0-0.8); MONOCYTES PERCENT AUTO 8.7 % (0.0-15.0); NEUTROPHILS ABSOLUTE AUTO 2.8 K/uL (1.4-5.7); NEUTROPHILS PERCENT AUTO 36.3 % (48.0-80.0); NRBC ABSOLUTE 0 K/uL; PLATELET COUNT,PLT 518 K/uL (150-400); RED BLOOD CELL COUNT 4.16 M/uL (4.30-5.90); WHITE BLOOD CELL COUNT,WBC 7.73 K/uL (4.0-11.0)
[2022-09-18 06:23] LABS: CALCIUM 8.3 mg/dL (8.5-10.1); CARBON DIOXIDE,CO2 23.5 mmol/L (21.0-32.0); EST CRCL DRUG DOSING (CG) 67.94 mL/min; POTASSIUM,K 3.1 mmol/L (3.5-5.1)
[2022-09-18] MEDS ORDERED: Sodium Chloride 0.9% 1,000 ML IV ONE (08:30)
[2022-09-18] MEDS: Potassium Chloride 100 ML IV SCH ×3 (10:08→16:12)
[2022-09-18] MEDS ORDERED: Magnesium Sulfate/Water 4 GM in Premix Bag 1 BAG IV ONE (10:56)
[2022-09-18] MEDS: Pantoprazole 40 MG in Sodium Chloride 0.9% 10 ML IVPUSH SCH (12:06)
[2022-09-18] MEDS: Prochlorperazine 10 MG/2 ML SDV IVPUSH PRN (12:54)
[2022-09-18] MEDS ORDERED: Nitroglycerin 0.4 MG Tab.SL SL PRN (13:32)
[2022-09-18] MEDS: Levofloxacin/Dextrose 5%-Water 750 MG in Premix Bag 1 BAG IV SCH (15:00)
[2022-09-18] MEDS: NS + KCl 20mEq/L 1,000 ML IV SCH (19:35)
[2022-09-19] MEDS: NS + KCl 20mEq/L 1,000 ML IV SCH ×2 (05:15→16:44)
[2022-09-19] MEDS: Morphine 2 MG/ML SYRINGE IVPUSH PRN ×3 (05:19→16:43)
[2022-09-19 07:39] LABS: CALCIUM 8.5 mg/dL (8.5-10.1); CREATININE 0.8 mg/dL (0.6-1.0); EST CRCL DRUG DOSING (CG) 84.93 mL/min; MAGNESIUM 1.7 mg/dL (1.8-2.4); POTASSIUM,K 4.1 mmol/L (3.5-5.1)
[2022-09-19] MEDS: Pantoprazole 40 MG in Sodium Chloride 0.9% 10 ML IVPUSH SCH (10:19)
[2022-09-19] MEDS: Magnesium Oxide 400 MG Tab PO SCH ×2 (10:28→20:11)
[2022-09-19] MEDS: Levofloxacin/Dextrose 5%-Water 750 MG in Premix Bag 1 BAG IV SCH (13:16)
[2022-09-19] MEDS: Prochlorperazine 10 MG/2 ML SDV IVPUSH PRN (18:12)
[2022-09-19] MEDS ORDERED: Morphine 2 MG/ML SYRINGE IVPUSH ONE (19:54)
[2022-09-20] MEDS: Morphine 2 MG/ML SYRINGE IVPUSH PRN ×2 (01:16→08:32)
[2022-09-20] MEDS: NS + KCl 20mEq/L 1,000 ML IV SCH (02:36)
[2022-09-20 05:48] LABS: BASOPHILS PERCENT AUTO 0.4 % (0.0-1.5); EOSINOPHILS ABSOLUTE AUTO 0.1 K/uL (0.0-0.7); EOSINOPHILS PERCENT AUTO 1.5 % (0.0-7.0); HEMATOCRIT 31.4 % (36.0-46.0); HEMOGLOBIN 9.9 g/dL (12.0-16.0); LYMPHOCYTES PERCENT AUTO 44.1 % (16.0-40.0); MEAN CORPUSCULAR HEMOGLOBIN 24.1 pg (27.0-32.0); MEAN CORPUSCULAR HGB CONC 31.5 g/dL (31.0-37.0); MEAN CORPUSCULAR VOLUME 76.6 fL (80.0-98.0); MONOCYTES ABSOLUTE AUTO 0.5 K/uL (0.0-0.8); MONOCYTES PERCENT AUTO 7.7 % (0.0-15.0); NEUTROPHILS ABSOLUTE AUTO 3.1 K/uL (1.4-5.7); NEUTROPHILS PERCENT AUTO 46.3 % (48.0-80.0); NRBC ABSOLUTE 0 K/uL; PLATELET COUNT,PLT 450 K/uL (150-400); WHITE BLOOD CELL COUNT,WBC 6.75 K/uL (4.0-11.0)
[2022-09-20 06:35] LABS: CALCIUM 8.9 mg/dL (8.5-10.1); CARBON DIOXIDE,CO2 23.3 mmol/L (21.0-32.0); CREATININE 0.8 mg/dL (0.6-1.0); EST CRCL DRUG DOSING (CG) 84.93 mL/min; MAGNESIUM 1.5 mg/dL (1.8-2.4); POTASSIUM,K 4.3 mmol/L (3.5-5.1)
[2022-09-20] MEDS: Magnesium Oxide 400 MG Tab PO SCH (08:34)
[2022-09-20] MEDS: Pantoprazole 40 MG in Sodium Chloride 0.9% 10 ML IVPUSH SCH (11:16)
[2022-09-20] MEDS ORDERED: Levofloxacin/Dextrose 5%-Water 750 MG in Premix Bag 1 BAG IV SCH (12:00)
== END 2022-09-20 13:55 | disposition home or self-care (01) | DRG 699 ==
LOC: MW.ED 10:38 → MW.MS 13:01 → OBSVTOIN 09-19 10:36 → MW.MS 09-19 11:55
PROVIDERS: ADMIT Hospitalist; ATTEND Hospitalist
DX: T83.84XA Pain due to genitourinary prosthetic devices, implants and grafts, initial encounter (principal); K51.90 Ulcerative colitis, unspecified, without complications; N10 Acute pyelonephritis; E83.42 Hypomagnesemia; Y83.8 Other surgical procedures as the cause of abnormal reaction of the patient, or of later complication, without mention of misadventure at the time of the procedure; B96.89 Other specified bacterial agents as the cause of diseases classified elsewhere; E87.6 Hypokalemia; F90.9 Attention-deficit hyperactivity disorder, unspecified type; Z79.2 Long term (current) use of antibiotics; Z79.899 Other long term (current) drug therapy; Z98.890 Other specified postprocedural states; Z87.442 Personal history of urinary calculi; Z93.3 Colostomy status
CPT/HCPCS: 36415; 80048; 83735; 85025; 93005; 96361; 96365; 96366; 96367; 96368; 96374; 96375; 96376; 99284; 99284-25; A9270-GY; C9113; G0378; J0744; J0780; J1790; J1956; J2270; J2405; J3475; J3480; J3490; J7030

== ENCOUNTER 2022-11-28 20:41 | Inpatient (IN) | payer MEDICAID ==
[2022-11-28] MEDS ORDERED: Acetaminophen 325 MG Tab PO ONE (20:45)
[2022-11-28] MEDS ORDERED: Morphine 2 MG/ML SYRINGE IVPUSH ONE (20:45)
[2022-11-28] MEDS ORDERED: Sodium Chloride 0.9% 1,000 ML IV SCH (20:45)
[2022-11-28 20:52] LABS: BASOPHILS PERCENT AUTO 0.1 % (0.0-1.5); EOSINOPHILS PERCENT AUTO 0.1 % (0.0-7.0); HEMATOCRIT 34.9 % (36.0-46.0); HEMOGLOBIN 11.6 g/dL (12.0-16.0); LYMPHOCYTES ABSOLUTE AUTO 0.9 K/uL (0.6-2.4); MEAN CORPUSCULAR HEMOGLOBIN 23.6 pg (27.0-32.0); MEAN CORPUSCULAR HGB CONC 33.2 g/dL (31.0-37.0); MEAN CORPUSCULAR VOLUME 70.9 fL (80.0-98.0); MONOCYTES ABSOLUTE AUTO 1.8 K/uL (0.0-0.8); MONOCYTES PERCENT AUTO 11.9 % (0.0-15.0); NEUTROPHILS ABSOLUTE AUTO 12.5 K/uL (1.4-5.7); NEUTROPHILS PERCENT AUTO 81.9 % (48.0-80.0); NRBC ABSOLUTE 0 K/uL; PLATELET COUNT,PLT 283 K/uL (150-400); RED BLOOD CELL COUNT 4.92 M/uL (4.30-5.90); WHITE BLOOD CELL COUNT,WBC 15.22 K/uL (4.0-11.0)
[2022-11-28 21:15] LABS: A/G RATIO 0.6 (0.9-1.6); ALBUMIN 3.7 g/dL (3.4-5.0); CALCIUM 9.5 mg/dL (8.5-10.1); CREATININE 1.7 mg/dL (0.6-1.0); EST CRCL DRUG DOSING (CG) 39.46 mL/min; POTASSIUM,K 3.6 mmol/L (3.5-5.1); PROTEIN TOTAL,TP 9.6 g/dL (6.4-8.2)
[2022-11-28] MEDS ORDERED: Iopamidol 755 MG/ML 500 ML Multipack Bottle IVPUSH STA (22:27)
[2022-11-28] MEDS ORDERED: Sodium Chloride 0.9% 1,000 ML IV ONE (22:59)
[2022-11-28] MEDS ORDERED: Morphine 4 MG/ML Syringe IVPUSH ONE (22:59)
[2022-11-28 23:10] LABS: BILIRUBIN,URINE NEGATIVE (NEGATIVE); COLOR,URINE YELLOW; GLUCOSE,URINE NEGATIVE (NEGATIVE); KETONES,URINE NEGATIVE (NEGATIVE); LEUKOCYTE ESTERASE,URINE TRACE (NEGATIVE); NITRITE,URINE NEGATIVE (NEGATIVE); OCCULT BLOOD,URINE TRACE-INTACT (NEGATIVE); PROTEIN,URINE 100 mg/dL (NEGATIVE); UROBILINOGEN,URINE 0.2 EU/dL (<2.0)
[2022-11-28 23:17] LABS: APPEARANCE,URINE SLT CLOUDY
[2022-11-28 23:23] LABS: AMORPHOUS SEDIMENT,URINE MANY (NEGATIVE); BACTERIA,URINE FEW (NEGATIVE); EPITHELIAL CELLS,URINE FEW (NONE-FEW); FINE GRANULAR CASTS,URINE 0-3 (NEGATIVE); MUCUS,URINE FEW (NONE-MOD); RBC,URINE 0-2 (0-2/HPF)
[2022-11-28] MEDS ORDERED: cefTRIAXone 1 GM in Sodium Chloride 0.9% 50 ML IV ONE (23:54)
[2022-11-29] MEDS ORDERED: Sodium Chloride 0.9% 1,000 ML IV ONE (00:10)
[2022-11-29] MEDS ORDERED: Sodium Chloride 0.9% 20 ML SDV IV PRN (00:54)
[2022-11-29] MEDS ORDERED: Sodium Chloride 0.9% 10 ML Syringe FLUSH PRN (00:54)
[2022-11-29] MEDS ORDERED: Polyethylene Glycol 3350 Powder 17 GM Packet PO PRN (00:54)
[2022-11-29] MEDS ORDERED: oxyCODONE 5 MG Tab PO PRN (00:54)
[2022-11-29] MEDS ORDERED: Sodium Chloride 0.9% 2.5 ML Syringe FLUSH PRN (00:54)
[2022-11-29] MEDS ORDERED: Albuterol/Ipratropium 3.0-0.5 MG/3 ML Neb Soln NEB PRN (00:54)
[2022-11-29] MEDS ORDERED: Levofloxacin/Dextrose 5%-Water 750 MG in Premix Bag 1 BAG IV SCH ×4 (01:00)
[2022-11-29] MEDS: Enoxaparin 40 MG/0.4 ML Syringe SUBCUT SCH (01:38)
[2022-11-29] MEDS: Ondansetron 4 MG/2 ML SDV IVPUSH PRN (03:00)
[2022-11-29 05:56] LABS: BASOPHILS PERCENT AUTO 0.1 % (0.0-1.5); EOSINOPHILS PERCENT AUTO 0.1 % (0.0-7.0); HEMATOCRIT 30.2 % (36.0-46.0); HEMOGLOBIN 9.7 g/dL (12.0-16.0); LYMPHOCYTES ABSOLUTE AUTO 0.7 K/uL (0.6-2.4); MEAN CORPUSCULAR HEMOGLOBIN 23.3 pg (27.0-32.0); MEAN CORPUSCULAR HGB CONC 32.1 g/dL (31.0-37.0); MEAN CORPUSCULAR VOLUME 72.4 fL (80.0-98.0); MONOCYTES ABSOLUTE AUTO 1.6 K/uL (0.0-0.8); MONOCYTES PERCENT AUTO 10.8 % (0.0-15.0); NEUTROPHILS ABSOLUTE AUTO 12.3 K/uL (1.4-5.7); NRBC ABSOLUTE 0 K/uL; PLATELET COUNT,PLT 238 K/uL (150-400); RED BLOOD CELL COUNT 4.17 M/uL (4.30-5.90); WHITE BLOOD CELL COUNT,WBC 14.66 K/uL (4.0-11.0)
[2022-11-29 06:24] LABS: CARBON DIOXIDE,CO2 19.1 mmol/L (21.0-32.0); CREATININE 1.3 mg/dL (0.6-1.0); EST CRCL DRUG DOSING (CG) 55.33 mL/min; POTASSIUM,K 3.5 mmol/L (3.5-5.1)
[2022-11-29] MEDS ORDERED: Acetaminophen 500 MG Tab PO ONE (08:13)
[2022-11-29 10:25] LABS: CALCIUM 7.8 mg/dL (8.5-10.1); CARBON DIOXIDE,CO2 17.6 mmol/L (21.0-32.0); CREATININE 1.3 mg/dL (0.6-1.0); EST CRCL DRUG DOSING (CG) 55.33 mL/min; POTASSIUM,K 3.1 mmol/L (3.5-5.1)
[2022-11-29] MEDS: Sodium Chloride 0.9% 1,000 ML IV SCH ×2 (10:39→17:56)
[2022-11-29] MEDS: oxyCODONE 5 MG Tab PO ONE ×2 (11:44→21:47)
[2022-11-29] MEDS ORDERED: Potassium Chloride 20 MEQ Tab.ER PO ONE ×2 (12:39→17:54)
[2022-11-29 13:30] LABS: CALCIUM 7.9 mg/dL (8.5-10.1); CARBON DIOXIDE,CO2 20.1 mmol/L (21.0-32.0); CREATININE 1.2 mg/dL (0.6-1.0); EST CRCL DRUG DOSING (CG) 59.94 mL/min; POTASSIUM,K 3.2 mmol/L (3.5-5.1)
[2022-11-29] MEDS: Acetaminophen 325 MG Tab PO PRN (15:55)
[2022-11-29] MEDS ORDERED: Sodium Chloride 0.9% 500 ML IV SCH ×2 (16:00→17:15)
[2022-11-29] MEDS: Sodium Chloride 0.9% 500 ML IV SCH ×2 (16:22→17:15)
[2022-11-29 17:00] LABS: LACTIC ACID 2.1 mmol/L (0.4-2.0)
[2022-11-29 17:48] LABS: CALCIUM 7.5 mg/dL (8.5-10.1); CREATININE 1.1 mg/dL (0.6-1.0); EST CRCL DRUG DOSING (CG) 65.39 mL/min; POTASSIUM,K 3.4 mmol/L (3.5-5.1)
[2022-11-29] MEDS ORDERED: Morphine 2 MG/ML SYRINGE IVPUSH ONE (18:03)
[2022-11-29] MEDS ORDERED: oxyCODONE 5 MG Tab PO ONE (21:33)
[2022-11-29 22:19] LABS: CALCIUM 7.6 mg/dL (8.5-10.1); EST CRCL DRUG DOSING (CG) 71.93 mL/min; POTASSIUM,K 3.7 mmol/L (3.5-5.1)
[2022-11-30] MEDS: Acetaminophen 325 MG Tab PO PRN ×3 (01:22→13:58)
[2022-11-30] MEDS: Enoxaparin 40 MG/0.4 ML Syringe SUBCUT SCH (01:22)
[2022-11-30] MEDS: Levofloxacin/Dextrose 5%-Water 750 MG in Premix Bag 1 BAG IV SCH (01:22)
[2022-11-30 01:41] LABS: CALCIUM 7.7 mg/dL (8.5-10.1); CREATININE 1.1 mg/dL (0.6-1.0); EST CRCL DRUG DOSING (CG) 65.39 mL/min; POTASSIUM,K 3.4 mmol/L (3.5-5.1)
[2022-11-30] MEDS: Sodium Chloride 0.9% 1,000 ML IV SCH (03:38)
[2022-11-30 05:58] LABS: BASOPHILS PERCENT AUTO 0.2 % (0.0-1.5); EOSINOPHILS PERCENT AUTO 0.1 % (0.0-7.0); HEMATOCRIT 27.6 % (36.0-46.0); LYMPHOCYTES ABSOLUTE AUTO 1.5 K/uL (0.6-2.4); LYMPHOCYTES PERCENT AUTO 16.6 % (16.0-40.0); MEAN CORPUSCULAR HEMOGLOBIN 23.6 pg (27.0-32.0); MEAN CORPUSCULAR HGB CONC 32.6 g/dL (31.0-37.0); MEAN CORPUSCULAR VOLUME 72.3 fL (80.0-98.0); MONOCYTES ABSOLUTE AUTO 1.2 K/uL (0.0-0.8); MONOCYTES PERCENT AUTO 12.8 % (0.0-15.0); NEUTROPHILS ABSOLUTE AUTO 6.4 K/uL (1.4-5.7); NEUTROPHILS PERCENT AUTO 70.3 % (48.0-80.0); NRBC ABSOLUTE 0 K/uL; PLATELET COUNT,PLT 229 K/uL (150-400); RED BLOOD CELL COUNT 3.82 M/uL (4.30-5.90); WHITE BLOOD CELL COUNT,WBC 9.11 K/uL (4.0-11.0)
[2022-11-30 06:38] LABS: A/G RATIO 0.5 (0.9-1.6); ALBUMIN 2.3 g/dL (3.4-5.0); BILIRUBIN TOTAL 0.6 mg/dL (0.2-1.0); CALCIUM 7.9 mg/dL (8.5-10.1); CARBON DIOXIDE,CO2 19.1 mmol/L (21.0-32.0); CREATININE 1.1 mg/dL (0.6-1.0); EST CRCL DRUG DOSING (CG) 65.39 mL/min; POTASSIUM,K 3.5 mmol/L (3.5-5.1)
[2022-11-30] MEDS ORDERED: Morphine 2 MG/ML SYRINGE IVPUSH ONE (07:53)
[2022-11-30] MEDS: Lactated Ringers 1,000 ML IV SCH ×2 (09:45→18:15)
[2022-11-30] MEDS: Morphine 4 MG/ML Syringe IVPUSH PRN ×2 (13:59→20:17)
[2022-11-30] MEDS: Ondansetron 4 MG/2 ML SDV IVPUSH PRN ×2 (14:05→21:09)
[2022-11-30 15:59] LABS: CALCIUM 8.9 mg/dL (8.5-10.1); CARBON DIOXIDE,CO2 21.4 mmol/L (21.0-32.0); EST CRCL DRUG DOSING (CG) 71.74 mL/min; POTASSIUM,K 3.3 mmol/L (3.5-5.1)
[2022-11-30] MEDS: Potassium Chloride 20 MEQ Tab.ER PO SCH (20:18)
[2022-12-01] MEDS: Acetaminophen 325 MG Tab PO PRN ×3 (00:21→17:24)
[2022-12-01] MEDS: Enoxaparin 40 MG/0.4 ML Syringe SUBCUT SCH (00:21)
[2022-12-01] MEDS: Morphine 4 MG/ML Syringe IVPUSH PRN ×3 (03:26→16:32)
[2022-12-01] MEDS: Levofloxacin/Dextrose 5%-Water 750 MG in Premix Bag 1 BAG IV SCH (03:29)
[2022-12-01] MEDS: Lactated Ringers 1,000 ML IV SCH ×3 (03:55→21:45)
[2022-12-01 06:37] LABS: BASOPHILS PERCENT AUTO 0.4 % (0.0-1.5); EOSINOPHILS PERCENT AUTO 0.3 % (0.0-7.0); HEMATOCRIT 28.7 % (36.0-46.0); HEMOGLOBIN 9.1 g/dL (12.0-16.0); LYMPHOCYTES ABSOLUTE AUTO 2.4 K/uL (0.6-2.4); LYMPHOCYTES PERCENT AUTO 24.8 % (16.0-40.0); MEAN CORPUSCULAR HEMOGLOBIN 22.6 pg (27.0-32.0); MEAN CORPUSCULAR HGB CONC 31.7 g/dL (31.0-37.0); MEAN CORPUSCULAR VOLUME 71.4 fL (80.0-98.0); MONOCYTES ABSOLUTE AUTO 1.5 K/uL (0.0-0.8); MONOCYTES PERCENT AUTO 14.8 % (0.0-15.0); NEUTROPHILS ABSOLUTE AUTO 5.8 K/uL (1.4-5.7); NEUTROPHILS PERCENT AUTO 59.7 % (48.0-80.0); NRBC ABSOLUTE 0 K/uL; PLATELET COUNT,PLT 291 K/uL (150-400); RED BLOOD CELL COUNT 4.02 M/uL (4.30-5.90); WHITE BLOOD CELL COUNT,WBC 9.79 K/uL (4.0-11.0)
[2022-12-01 07:01] LABS: A/G RATIO 0.6 (0.9-1.6); ALBUMIN 2.7 g/dL (3.4-5.0); BILIRUBIN TOTAL 0.5 mg/dL (0.2-1.0); CARBON DIOXIDE,CO2 20.7 mmol/L (21.0-32.0); CREATININE 1.1 mg/dL (0.6-1.0); EST CRCL DRUG DOSING (CG) 66.13 mL/min; POTASSIUM,K 3.3 mmol/L (3.5-5.1); PROTEIN TOTAL,TP 7.6 g/dL (6.4-8.2)
[2022-12-01] MEDS ORDERED: Potassium Chloride 20 MEQ Tab.ER PO ONE (07:41)
[2022-12-01] MEDS: Potassium Chloride 20 MEQ Tab.ER PO SCH (08:50)
[2022-12-01] MEDS ORDERED: Phenol 1.4% Oral Spray 177 ML Bottle MUCMEM PRN (12:07)
[2022-12-01] MEDS: Cefepime 2 GM in Sodium Chloride 0.9% 50 ML IV SCH (16:36)
[2022-12-01] MEDS: Ondansetron 4 MG/2 ML SDV IVPUSH PRN (17:25)
[2022-12-01] MEDS: traMADol 50 MG Tab PO SCH (18:25)
[2022-12-01] MEDS ORDERED: Cefepime 2 GM in Sodium Chloride 0.9% 50 ML IV SCH (21:00)
[2022-12-02] MEDS: Enoxaparin 40 MG/0.4 ML Syringe SUBCUT SCH (00:23)
[2022-12-02] MEDS: traMADol 50 MG Tab PO SCH ×4 (00:23→17:59)
[2022-12-02] MEDS: Cefepime 2 GM in Sodium Chloride 0.9% 50 ML IV SCH ×2 (03:50→15:34)
[2022-12-02] MEDS: Morphine 4 MG/ML Syringe IVPUSH PRN ×4 (03:50→23:00)
[2022-12-02] MEDS: Ondansetron 4 MG/2 ML SDV IVPUSH PRN ×2 (03:56→12:53)
[2022-12-02] MEDS: Lactated Ringers 1,000 ML IV SCH ×3 (05:54→22:14)
[2022-12-02 06:27] LABS: BASOPHILS PERCENT AUTO 0.5 % (0.0-1.5); EOSINOPHILS ABSOLUTE AUTO 0.1 K/uL (0.0-0.7); EOSINOPHILS PERCENT AUTO 0.7 % (0.0-7.0); HEMOGLOBIN 8.3 g/dL (12.0-16.0); LYMPHOCYTES ABSOLUTE AUTO 2.3 K/uL (0.6-2.4); LYMPHOCYTES PERCENT AUTO 27.3 % (16.0-40.0); MEAN CORPUSCULAR HEMOGLOBIN 22.6 pg (27.0-32.0); MEAN CORPUSCULAR HGB CONC 31.9 g/dL (31.0-37.0); MEAN CORPUSCULAR VOLUME 70.8 fL (80.0-98.0); MONOCYTES ABSOLUTE AUTO 0.9 K/uL (0.0-0.8); MONOCYTES PERCENT AUTO 11.2 % (0.0-15.0); NEUTROPHILS ABSOLUTE AUTO 5.1 K/uL (1.4-5.7); NEUTROPHILS PERCENT AUTO 60.3 % (48.0-80.0); NRBC ABSOLUTE 0 K/uL; PLATELET COUNT,PLT 313 K/uL (150-400); RED BLOOD CELL COUNT 3.67 M/uL (4.30-5.90); WHITE BLOOD CELL COUNT,WBC 8.43 K/uL (4.0-11.0)
[2022-12-02 06:38] LABS: A/G RATIO 0.5 (0.9-1.6); ALBUMIN 2.4 g/dL (3.4-5.0); BILIRUBIN TOTAL 0.4 mg/dL (0.2-1.0); CALCIUM 8.1 mg/dL (8.5-10.1); CARBON DIOXIDE,CO2 22.8 mmol/L (21.0-32.0); CREATININE 0.9 mg/dL (0.6-1.0); EST CRCL DRUG DOSING (CG) 80.82 mL/min; PROTEIN TOTAL,TP 7.1 g/dL (6.4-8.2)
[2022-12-02] MEDS ORDERED: Magnesium Sulfate/Water 4 GM in Premix Bag 1 BAG IV ONE (07:58)
[2022-12-02] MEDS ORDERED: Potassium Chloride 20 MEQ Tab.ER PO SCH (09:00)
[2022-12-02] MEDS ORDERED: Potassium Chloride 20 MEQ Tab.ER PO ONE (11:53)
[2022-12-03] MEDS: traMADol 50 MG Tab PO SCH ×4 (00:20→18:07)
[2022-12-03] MEDS: Enoxaparin 40 MG/0.4 ML Syringe SUBCUT SCH (00:30)
[2022-12-03] MEDS: Cefepime 2 GM in Sodium Chloride 0.9% 50 ML IV SCH ×2 (03:27→15:35)
[2022-12-03] MEDS: Ondansetron 4 MG/2 ML SDV IVPUSH PRN ×2 (06:31→18:47)
[2022-12-03] MEDS: Lactated Ringers 1,000 ML IV SCH (06:32)
[2022-12-03 06:52] LABS: BASOPHILS ABSOLUTE AUTO 0.1 K/uL (0.0-0.1); BASOPHILS PERCENT AUTO 0.9 % (0.0-1.5); EOSINOPHILS ABSOLUTE AUTO 0.1 K/uL (0.0-0.7); EOSINOPHILS PERCENT AUTO 1.6 % (0.0-7.0); HEMATOCRIT 25.9 % (36.0-46.0); HEMOGLOBIN 8.6 g/dL (12.0-16.0); LYMPHOCYTES ABSOLUTE AUTO 2.6 K/uL (0.6-2.4); LYMPHOCYTES PERCENT AUTO 37.5 % (16.0-40.0); MEAN CORPUSCULAR HEMOGLOBIN 23.6 pg (27.0-32.0); MEAN CORPUSCULAR HGB CONC 33.2 g/dL (31.0-37.0); MEAN CORPUSCULAR VOLUME 71.2 fL (80.0-98.0); MONOCYTES ABSOLUTE AUTO 0.8 K/uL (0.0-0.8); MONOCYTES PERCENT AUTO 11.7 % (0.0-15.0); NEUTROPHILS ABSOLUTE AUTO 3.3 K/uL (1.4-5.7); NEUTROPHILS PERCENT AUTO 48.3 % (48.0-80.0); NRBC ABSOLUTE 0 K/uL; PLATELET COUNT,PLT 338 K/uL (150-400); RED BLOOD CELL COUNT 3.64 M/uL (4.30-5.90); WHITE BLOOD CELL COUNT,WBC 6.86 K/uL (4.0-11.0)
[2022-12-03 07:20] LABS: A/G RATIO 0.5 (0.9-1.6); ALBUMIN 2.3 g/dL (3.4-5.0); BILIRUBIN TOTAL 0.3 mg/dL (0.2-1.0); CALCIUM 8.1 mg/dL (8.5-10.1); CARBON DIOXIDE,CO2 26.2 mmol/L (21.0-32.0); CREATININE 0.8 mg/dL (0.6-1.0); EST CRCL DRUG DOSING (CG) 90.92 mL/min; MAGNESIUM 1.5 mg/dL (1.8-2.4); POTASSIUM,K 3.6 mmol/L (3.5-5.1); PROTEIN TOTAL,TP 6.9 g/dL (6.4-8.2)
[2022-12-03] MEDS ORDERED: Magnesium Sulfate/Water 2 GM in Premix Bag 1 BAG IV ONE (07:25)
[2022-12-03] MEDS: Morphine 4 MG/ML Syringe IVPUSH PRN (08:11)
[2022-12-04] MEDS: traMADol 50 MG Tab PO SCH ×4 (00:42→17:12)
[2022-12-04] MEDS: Enoxaparin 40 MG/0.4 ML Syringe SUBCUT SCH (00:42)
[2022-12-04] MEDS: Cefepime 2 GM in Sodium Chloride 0.9% 50 ML IV SCH ×2 (03:29→15:42)
[2022-12-04 06:01] LABS: HEMOGLOBIN 8.7 g/dL (12.0-16.0); MEAN CORPUSCULAR HEMOGLOBIN 22.3 pg (27.0-32.0); MEAN CORPUSCULAR HGB CONC 31.1 g/dL (31.0-37.0); MEAN CORPUSCULAR VOLUME 71.8 fL (80.0-98.0); NRBC ABSOLUTE 0 K/uL; PLATELET COUNT,PLT 432 K/uL (150-400); WHITE BLOOD CELL COUNT,WBC 6.74 K/uL (4.0-11.0)
[2022-12-04 06:31] LABS: A/G RATIO 0.5 (0.9-1.6); ALBUMIN 2.5 g/dL (3.4-5.0); BILIRUBIN TOTAL 0.3 mg/dL (0.2-1.0); CALCIUM 8.6 mg/dL (8.5-10.1); CARBON DIOXIDE,CO2 27.2 mmol/L (21.0-32.0); CREATININE 0.8 mg/dL (0.6-1.0); EST CRCL DRUG DOSING (CG) 90.46 mL/min; POTASSIUM,K 3.6 mmol/L (3.5-5.1); PROTEIN TOTAL,TP 7.2 g/dL (6.4-8.2)
[2022-12-04 06:41] LABS: BAND ABSOLUTE MAN 0.5; BAND PERCENT MAN 7 %; BASOPHILS ABSOLUTE MAN 0.1 (0.0-0.1); BASOPHILS PERCENT MAN 1 % (0.0-1.5); EOSINOPHILS ABSOLUTE MAN 0.2 (0.0-0.7); EOSINOPHILS PERCENT MAN 3 % (0.0-7.0); LYMPHOCYTES ABSOLUTE MAN 2.6 (0.6-2.4); LYMPHOCYTES PERCENT MAN 38 % (16.0-40.0); METAMYELOCYTE ABSOLUTE MAN 0.1; METAMYELOCYTE PERCENT MAN 1 %; MONOCYTES ABSOLUTE MAN 0.5 (0.0-0.8); MONOCYTES PERCENT MAN 7 % (0.0-15.0); MYELOCYTE ABSOLUTE MAN 0.1; MYELOCYTE PERCENT MAN 2 %; SEG NEUTROPHILS ABSOLUTE MAN 2.8 (1.4-5.7); SEG NEUTROPHILS PERCENT MAN 41 % (48.0-80.0)
[2022-12-04] MEDS ORDERED: Magnesium Sulfate/Water 2 GM in Premix Bag 1 BAG IV ONE (07:37)
[2022-12-04] MEDS: Ondansetron 4 MG/2 ML SDV IVPUSH PRN (08:06)
== END 2022-12-04 17:15 | disposition home or self-care (01) | DRG 872 ==
LOC: MW.ED 20:41 → MW.MS 23:57 → OBSVTOIN 11-30 09:07 → MW.MS 11-30 11:22
PROVIDERS: ADMIT Family Medicine; ATTEND Family Medicine
DX: A41.9 Sepsis, unspecified organism (principal); N17.9 Acute kidney failure, unspecified; E46 Unspecified protein-calorie malnutrition; E87.1 Hypo-osmolality and hyponatremia; Z16.39 Resistance to other specified antimicrobial drug; Z68.1 Body mass index [BMI] 19.9 or less, adult; N12 Tubulo-interstitial nephritis, not specified as acute or chronic; Z20.822 Contact with and (suspected) exposure to COVID-19; B96.1 Klebsiella pneumoniae [K. pneumoniae] as the cause of diseases classified elsewhere; F90.9 Attention-deficit hyperactivity disorder, unspecified type; Z93.2 Ileostomy status; Z79.899 Other long term (current) drug therapy; Z98.890 Other specified postprocedural states
CPT/HCPCS: 36415; 74177; 74177-26; 80048; 80053; 81001; 83605; 83690; 83735; 84703; 85025; 87040; 87086; 87088; 87186; 96361; 96365; 96366; 96367; 96372; 96375; 96376; 99222; 99232; 99239; 99284; 99285-25; A9270-GY; G0378; J0692; J0696; J1650; J1956; J2270; J2405; J3475; J3490; J7030; J7040; J7120; Q9967; U0002

== ENCOUNTER 2023-10-10 08:41 | Inpatient (IN) | payer MEDICAID ==
[2023-10-10 09:15] LABS: BASOPHILS ABSOLUTE AUTO 0.04 K/uL (0.00-0.20); BASOPHILS PERCENT AUTO 0.3 % (0.0-1.0); HEMATOCRIT 35.9 % (37.0-47.0); HEMOGLOBIN 11.8 g/dL (12.0-16.0); IMMATURE GRAN ABSOLUTE AUTO 0.06 K/uL (0.00-0.05); IMMATURE GRAN PERCENT AUTO 0.5 % (0.0-0.4); LYMPHOCYTES ABSOLUTE AUTO 1.33 K/uL (1.00-4.80); LYMPHOCYTES PERCENT AUTO 10.5 % (24.0-44.0); MEAN CORPUSCULAR HEMOGLOBIN 25.3 pg (28.0-32.0); MEAN CORPUSCULAR HGB CONC 32.9 g/dL (32.0-36.0); MEAN PLATELET VOLUME 10.2 fL (9.4-12.3); MONOCYTES ABSOLUTE AUTO 1.13 K/uL (0.00-0.80); MONOCYTES PERCENT AUTO 8.9 % (0.0-8.0); NEUTROPHILS ABSOLUTE AUTO 10.08 K/uL (1.80-7.70); NEUTROPHILS PERCENT AUTO 79.8 % (41.0-71.0); PLATELET COUNT,PLT 342 K/uL (150-400); RED BLOOD CELL COUNT 4.66 M/uL (4.10-5.30); WHITE BLOOD CELL COUNT,WBC 12.64 K/uL (3.9-11.3)
[2023-10-10] MEDS: Ketorolac 30 MG/ML SDV IVPUSH ONE (09:34)
[2023-10-10] MEDS: Ondansetron 4 MG/2 ML SDV IVPUSH ONE (09:34)
[2023-10-10] MEDS: Sodium Chloride 0.9% 1,000 ML IV ONE (09:35)
[2023-10-10] MEDS: cefTRIAXone 1 GM in Sodium Chloride 0.9% 50 ML IV ONE (09:35)
[2023-10-10] MEDS: Sodium Chloride 0.9% 10 ML Syringe FLUSH PRN (09:36)
[2023-10-10] MEDS: Sodium Chloride 0.9% 2.5 ML Syringe FLUSH PRN (09:36)
[2023-10-10 09:37] LABS: APPEARANCE,URINE SLT CLOUDY; BILIRUBIN,URINE NEGATIVE (NEGATIVE); COLOR,URINE YELLOW; GLUCOSE,URINE NEGATIVE (NEGATIVE); KETONES,URINE 15 mg/dL (NEGATIVE); LEUKOCYTE ESTERASE,URINE SMALL (NEGATIVE); NITRITE,URINE NEGATIVE (NEGATIVE); OCCULT BLOOD,URINE TRACE-INTACT (NEGATIVE); PROTEIN,URINE NEGATIVE (NEGATIVE); UROBILINOGEN,URINE 0.2 EU/dL (<2.0)
[2023-10-10 10:00] LABS: BACTERIA,URINE 1+ (NEGATIVE); EPITHELIAL CELLS,URINE FEW (NONE-FEW); RBC,URINE 0-2 (0-2/HPF)
[2023-10-10 10:04] LABS: A/G RATIO 0.8 (0.9-1.6); ALBUMIN 3.9 g/dL (3.4-5.0); BILIRUBIN TOTAL 0.7 mg/dL (0.2-1.0); CALCIUM 9.1 mg/dL (8.5-10.1); CARBON DIOXIDE,CO2 23.7 mmol/L (21.0-32.0); CREATININE 1.1 mg/dL (0.6-1.0); EST CRCL DRUG DOSING (CG) 64.15 mL/min; PROTEIN TOTAL,TP 8.8 g/dL (6.4-8.2)
[2023-10-10 10:16] LABS: LACTIC ACID 1.1 mmol/L (0.4-2.0)
[2023-10-10] MEDS ORDERED: Naloxone 0.4 MG/ML SDV IVPUSH PRN ×2 (10:18→12:05)
[2023-10-10] MEDS: Iopamidol 755 MG/ML 500 ML Multipack Bottle IVPUSH STA (10:25)
[2023-10-10] MEDS: Morphine 4 MG/ML Syringe IVPUSH PRN ×2 (10:26→12:55)
[2023-10-10] MEDS: Acetaminophen 325 MG Tab PO ONE (11:04)
[2023-10-10] MEDS ORDERED: Sodium Chloride 0.9% 2.5 ML Syringe FLUSH PRN (12:03)
[2023-10-10] MEDS ORDERED: Sodium Chloride 0.9% 10 ML Syringe FLUSH PRN (12:03)
[2023-10-10] MEDS: Potassium Chloride 20 MEQ Tab.ER PO ONE (12:59)
[2023-10-10] MEDS: NS with KCl 40mEq 1,000 ML IV ONE (13:03)
[2023-10-10] MEDS: Magnesium Sulfate/Water 2 GM in Premix Bag 1 BAG IV ONE (13:04)
[2023-10-10] MEDS: Enoxaparin 40 MG/0.4 ML Syringe SUBCUT SCH (13:15)
[2023-10-10] MEDS: Acetaminophen 325 MG Tab PO PRN (16:18)
[2023-10-10] MEDS: Ondansetron 4 MG/2 ML SDV IVPUSH PRN (17:47)
[2023-10-10] MEDS: Sodium Chloride 0.9% 1,000 ML IV SCH (21:32)
[2023-10-11 05:58] LABS: BASOPHILS ABSOLUTE AUTO 0.03 K/uL (0.00-0.20); BASOPHILS PERCENT AUTO 0.2 % (0.0-1.0); EOSINOPHILS ABSOLUTE AUTO 0.01 K/uL (0.00-0.45); EOSINOPHILS PERCENT AUTO 0.1 % (0.0-6.0); HEMATOCRIT 32.6 % (37.0-47.0); HEMOGLOBIN 10.4 g/dL (12.0-16.0); IMMATURE GRAN ABSOLUTE AUTO 0.08 K/uL (0.00-0.05); IMMATURE GRAN PERCENT AUTO 0.6 % (0.0-0.4); LYMPHOCYTES PERCENT AUTO 8.7 % (24.0-44.0); MEAN CORPUSCULAR HEMOGLOBIN 25.4 pg (28.0-32.0); MEAN CORPUSCULAR HGB CONC 31.9 g/dL (32.0-36.0); MEAN CORPUSCULAR VOLUME 79.7 fL (83.0-99.0); MEAN PLATELET VOLUME 10.6 fL (9.4-12.3); MONOCYTES ABSOLUTE AUTO 1.01 K/uL (0.00-0.80); MONOCYTES PERCENT AUTO 7.3 % (0.0-8.0); NEUTROPHILS PERCENT AUTO 83.1 % (41.0-71.0); PLATELET COUNT,PLT 217 K/uL (150-400); RED BLOOD CELL COUNT 4.09 M/uL (4.10-5.30); WHITE BLOOD CELL COUNT,WBC 13.83 K/uL (3.9-11.3)
[2023-10-11 06:21] LABS: CALCIUM 8.4 mg/dL (8.5-10.1); CARBON DIOXIDE,CO2 20.5 mmol/L (21.0-32.0); EST CRCL DRUG DOSING (CG) 72.63 mL/min; MAGNESIUM 1.6 mg/dL (1.8-2.4); POTASSIUM,K 4.2 mmol/L (3.5-5.1)
[2023-10-11] MEDS: Famotidine 20 MG Tab PO SCH (08:00)
[2023-10-11] MEDS: cefTRIAXone 1 GM in Sodium Chloride 0.9% 50 ML IV SCH (08:00)
[2023-10-11] MEDS: Magnesium Sulfate/Water 2 GM in Premix Bag 1 BAG IV ONE (08:41)
[2023-10-11] MEDS: Sodium Chloride 0.9% 500 ML IV SCH (08:54)
[2023-10-12 05:33] LABS: BASOPHILS ABSOLUTE AUTO 0.01 K/uL (0.00-0.20); BASOPHILS PERCENT AUTO 0.1 % (0.0-1.0); EOSINOPHILS ABSOLUTE AUTO 0.03 K/uL (0.00-0.45); EOSINOPHILS PERCENT AUTO 0.3 % (0.0-6.0); HEMOGLOBIN 8.6 g/dL (12.0-16.0); IMMATURE GRAN ABSOLUTE AUTO 0.04 K/uL (0.00-0.05); IMMATURE GRAN PERCENT AUTO 0.5 % (0.0-0.4); LYMPHOCYTES ABSOLUTE AUTO 0.98 K/uL (1.00-4.80); LYMPHOCYTES PERCENT AUTO 11.3 % (24.0-44.0); MEAN CORPUSCULAR HEMOGLOBIN 25.3 pg (28.0-32.0); MEAN CORPUSCULAR HGB CONC 33.1 g/dL (32.0-36.0); MEAN CORPUSCULAR VOLUME 76.5 fL (83.0-99.0); MONOCYTES ABSOLUTE AUTO 0.88 K/uL (0.00-0.80); MONOCYTES PERCENT AUTO 10.1 % (0.0-8.0); NEUTROPHILS ABSOLUTE AUTO 6.75 K/uL (1.80-7.70); NEUTROPHILS PERCENT AUTO 77.7 % (41.0-71.0); PLATELET COUNT,PLT 201 K/uL (150-400); WHITE BLOOD CELL COUNT,WBC 8.69 K/uL (3.9-11.3)
[2023-10-12 05:52] LABS: CALCIUM 8.1 mg/dL (8.5-10.1); CARBON DIOXIDE,CO2 23.4 mmol/L (21.0-32.0); CREATININE 0.9 mg/dL (0.6-1.0); EST CRCL DRUG DOSING (CG) 80.7 mL/min; MAGNESIUM 1.2 mg/dL (1.8-2.4); POTASSIUM,K 3.4 mmol/L (3.5-5.1)
[2023-10-12] MEDS: Magnesium Sulfate/Water 4 GM in Premix Bag 1 BAG IV ONE (08:38)
[2023-10-12] MEDS: Potassium Chloride 20 MEQ Tab.ER PO ONE (08:41)
[2023-10-12] MEDS: Sodium Chloride 0.9% 1,000 ML IV SCH (10:13)
[2023-10-12] MEDS: Ketorolac 30 MG/ML SDV IVPUSH PRN (15:46)
[2023-10-13 06:19] LABS: BASOPHILS ABSOLUTE AUTO 0.02 K/uL (0.00-0.20); BASOPHILS PERCENT AUTO 0.2 % (0.0-1.0); EOSINOPHILS ABSOLUTE AUTO 0.05 K/uL (0.00-0.45); EOSINOPHILS PERCENT AUTO 0.6 % (0.0-6.0); HEMATOCRIT 27.8 % (37.0-47.0); HEMOGLOBIN 9.1 g/dL (12.0-16.0); IMMATURE GRAN ABSOLUTE AUTO 0.05 K/uL (0.00-0.05); IMMATURE GRAN PERCENT AUTO 0.6 % (0.0-0.4); LYMPHOCYTES ABSOLUTE AUTO 2.03 K/uL (1.00-4.80); LYMPHOCYTES PERCENT AUTO 24.3 % (24.0-44.0); MEAN CORPUSCULAR HGB CONC 32.7 g/dL (32.0-36.0); MEAN CORPUSCULAR VOLUME 76.4 fL (83.0-99.0); MEAN PLATELET VOLUME 10.1 fL (9.4-12.3); MONOCYTES ABSOLUTE AUTO 1.05 K/uL (0.00-0.80); MONOCYTES PERCENT AUTO 12.6 % (0.0-8.0); NEUTROPHILS ABSOLUTE AUTO 5.15 K/uL (1.80-7.70); NEUTROPHILS PERCENT AUTO 61.7 % (41.0-71.0); PLATELET COUNT,PLT 259 K/uL (150-400); RED BLOOD CELL COUNT 3.64 M/uL (4.10-5.30); WHITE BLOOD CELL COUNT,WBC 8.35 K/uL (3.9-11.3)
[2023-10-13 06:44] LABS: CALCIUM 8.7 mg/dL (8.5-10.1); CARBON DIOXIDE,CO2 23.4 mmol/L (21.0-32.0); EST CRCL DRUG DOSING (CG) 72.63 mL/min; MAGNESIUM 1.7 mg/dL (1.8-2.4); POTASSIUM,K 3.6 mmol/L (3.5-5.1)
[2023-10-13] MEDS: Magnesium Sulfate/Water 2 GM in Premix Bag 1 BAG IV ONE (10:22)
[2023-10-14 06:22] LABS: BASOPHILS ABSOLUTE AUTO 0.03 K/uL (0.00-0.20); BASOPHILS PERCENT AUTO 0.4 % (0.0-1.0); EOSINOPHILS PERCENT AUTO 1.4 % (0.0-6.0); HEMATOCRIT 28.1 % (37.0-47.0); HEMOGLOBIN 9.3 g/dL (12.0-16.0); IMMATURE GRAN ABSOLUTE AUTO 0.05 K/uL (0.00-0.05); IMMATURE GRAN PERCENT AUTO 0.7 % (0.0-0.4); LYMPHOCYTES ABSOLUTE AUTO 2.27 K/uL (1.00-4.80); LYMPHOCYTES PERCENT AUTO 32.2 % (24.0-44.0); MEAN CORPUSCULAR HEMOGLOBIN 25.1 pg (28.0-32.0); MEAN CORPUSCULAR HGB CONC 33.1 g/dL (32.0-36.0); MEAN CORPUSCULAR VOLUME 75.7 fL (83.0-99.0); MEAN PLATELET VOLUME 9.3 fL (9.4-12.3); MONOCYTES ABSOLUTE AUTO 1.05 K/uL (0.00-0.80); MONOCYTES PERCENT AUTO 14.9 % (0.0-8.0); NEUTROPHILS ABSOLUTE AUTO 3.56 K/uL (1.80-7.70); NEUTROPHILS PERCENT AUTO 50.4 % (41.0-71.0); PLATELET COUNT,PLT 300 K/uL (150-400); RED BLOOD CELL COUNT 3.71 M/uL (4.10-5.30); WHITE BLOOD CELL COUNT,WBC 7.06 K/uL (3.9-11.3)
[2023-10-14 06:53] LABS: A/G RATIO 0.5 (0.9-1.6); ALBUMIN 2.2 g/dL (3.4-5.0); BILIRUBIN TOTAL 0.3 mg/dL (0.2-1.0); CALCIUM 8.6 mg/dL (8.5-10.1); CARBON DIOXIDE,CO2 24.8 mmol/L (21.0-32.0); CREATININE 0.9 mg/dL (0.6-1.0); EST CRCL DRUG DOSING (CG) 80.7 mL/min; POTASSIUM,K 3.2 mmol/L (3.5-5.1); PROTEIN TOTAL,TP 6.4 g/dL (6.4-8.2)
[2023-10-14] MEDS ORDERED: Magnesium Sulfate/Water 2 GM/50 ML Premix Bag IV ONE (12:06)
[2023-10-14] MEDS: Magnesium Sulfate/Water 2 GM in Premix Bag 1 BAG IV ONE (12:57)
[2023-10-14] MEDS: Potassium Chloride 20 MEQ Tab.ER PO ONE (12:58)
[2023-10-15 06:04] LABS: BASOPHILS ABSOLUTE AUTO 0.04 K/uL (0.00-0.20); BASOPHILS PERCENT AUTO 0.7 % (0.0-1.0); EOSINOPHILS ABSOLUTE AUTO 0.15 K/uL (0.00-0.45); EOSINOPHILS PERCENT AUTO 2.5 % (0.0-6.0); HEMATOCRIT 29.8 % (37.0-47.0); HEMOGLOBIN 9.6 g/dL (12.0-16.0); IMMATURE GRAN ABSOLUTE AUTO 0.07 K/uL (0.00-0.05); IMMATURE GRAN PERCENT AUTO 1.2 % (0.0-0.4); LYMPHOCYTES ABSOLUTE AUTO 2.24 K/uL (1.00-4.80); LYMPHOCYTES PERCENT AUTO 37.8 % (24.0-44.0); MEAN CORPUSCULAR HEMOGLOBIN 24.9 pg (28.0-32.0); MEAN CORPUSCULAR HGB CONC 32.2 g/dL (32.0-36.0); MEAN CORPUSCULAR VOLUME 77.2 fL (83.0-99.0); MEAN PLATELET VOLUME 10.2 fL (9.4-12.3); MONOCYTES ABSOLUTE AUTO 0.77 K/uL (0.00-0.80); NEUTROPHILS ABSOLUTE AUTO 2.65 K/uL (1.80-7.70); NEUTROPHILS PERCENT AUTO 44.8 % (41.0-71.0); PLATELET COUNT,PLT 329 K/uL (150-400); RED BLOOD CELL COUNT 3.86 M/uL (4.10-5.30); WHITE BLOOD CELL COUNT,WBC 5.92 K/uL (3.9-11.3)
[2023-10-15 06:18] LABS: CALCIUM 8.7 mg/dL (8.5-10.1); CARBON DIOXIDE,CO2 24.7 mmol/L (21.0-32.0); CREATININE 0.8 mg/dL (0.6-1.0); EST CRCL DRUG DOSING (CG) 90.79 mL/min; MAGNESIUM 1.6 mg/dL (1.8-2.4); PHOSPHORUS 3.2 mg/dL (2.6-4.7); POTASSIUM,K 3.6 mmol/L (3.5-5.1)
== END 2023-10-15 13:10 | disposition home or self-care (01) | DRG 872 ==
LOC: MW.ED 08:41 → MW.MS 11:20 → MW.ED 11:32
PROVIDERS: ADMIT Internal Medicine; ATTEND Internal Medicine
DX: A41.4 Sepsis due to anaerobes (principal); N10 Acute pyelonephritis; F90.9 Attention-deficit hyperactivity disorder, unspecified type; E87.6 Hypokalemia; E83.42 Hypomagnesemia; E87.8 Other disorders of electrolyte and fluid balance, not elsewhere classified; Z93.2 Ileostomy status; Z90.49 Acquired absence of other specified parts of digestive tract; Z87.442 Personal history of urinary calculi; Z86.19 Personal history of other infectious and parasitic diseases; Z87.19 Personal history of other diseases of the digestive system; Z93.3 Colostomy status; Z79.899 Other long term (current) drug therapy
CPT/HCPCS: 36415; 74177; 74177-26; 80048; 80053; 81001; 81025; 83605; 83690; 83735; 84100; 85025; 87040; 87086; 87088; 87186; 96361; 96365; 96375; 99284; 99285-25; A9270-GY; J0696; J1650; J1885; J2270; J2405; J3475; J3480; J3490; J7030; J7040; Q9967

== ENCOUNTER 2023-11-13 08:39 | Emergency (ER) | payer BC ==
[2023-11-13 09:20] LABS: APPEARANCE,URINE SLT CLOUDY; GLUCOSE,URINE NEGATIVE (NEGATIVE); KETONES,URINE TRACE mg/dL (NEGATIVE); LEUKOCYTE ESTERASE,URINE TRACE (NEGATIVE); NITRITE,URINE POSITIVE (NEGATIVE); OCCULT BLOOD,URINE MODERATE (NEGATIVE); PROTEIN,URINE 30 mg/dL (NEGATIVE)
[2023-11-13 09:23] LABS: BILIRUBIN,URINE SMALL (NEGATIVE); COLOR,URINE DARK YELLOW
[2023-11-13 09:27] LABS: BACTERIA,URINE FEW (NEGATIVE); EPITHELIAL CELLS,URINE FEW (NONE-FEW)
[2023-11-13 09:28] LABS: MUCUS,URINE LIGHT (NONE-MOD)
[2023-11-13 09:58] LABS: CORONAVIRUS COVID-19 NAA NEGATIVE (NEGATIVE); INFLUENZA A NAA NEGATIVE (NEGATIVE); INFLUENZA B NAA NEGATIVE (NEGATIVE); RESPIRATORY SYNCYTIAL VIR NAA NEGATIVE (NEGATIVE)
[2023-11-13 10:02] LABS: CANDIDA DNA PROBE NEGATIVE (NEGATIVE); GARDNERELLA DNA PROBE NEGATIVE (NEGATIVE); TRICHOMONAS DNA PROBE NEGATIVE (NEGATIVE)
[2023-11-13] MEDS ORDERED: cefTRIAXone 1 GM Vial IM ONE (10:08)
[2023-11-13] MEDS: cefTRIAXone 1 GM in Lidocaine 1% 2.1 ML IM ONE (10:32)
== END 2023-11-13 11:20 | disposition home or self-care (01) ==
LOC: MW.ED 08:39
DX: N39.0 Urinary tract infection, site not specified (principal); Z75.8 Other problems related to medical facilities and other health care
CPT/HCPCS: 0241U; 81001; 87086; 87480; 87510; 87660; 96372; 99283; J0696; J3490

== ENCOUNTER 2024-03-16 16:19 | Emergency (ER) | payer BC ==
[2024-03-16 16:52] LABS: APPEARANCE,URINE CLEAR; BILIRUBIN,URINE NEGATIVE (NEGATIVE); COLOR,URINE YELLOW; GLUCOSE,URINE NEGATIVE (NEGATIVE); KETONES,URINE NEGATIVE (NEGATIVE); LEUKOCYTE ESTERASE,URINE SMALL (NEGATIVE); NITRITE,URINE NEGATIVE (NEGATIVE); OCCULT BLOOD,URINE TRACE-INTACT (NEGATIVE); PROTEIN,URINE NEGATIVE (NEGATIVE); UROBILINOGEN,URINE 0.2 EU/dL (<2.0)
[2024-03-16 17:01] LABS: BACTERIA,URINE FEW (NEGATIVE); EPITHELIAL CELLS,URINE FEW (NONE-FEW); RBC,URINE 0-1 (0-2/HPF)
[2024-03-16] MEDS: Ondansetron 4 MG/2 ML SDV IVPUSH ONE (18:07)
[2024-03-16] MEDS: Sodium Chloride 0.9% 1,000 ML IV ONE (18:07)
[2024-03-16 18:13] LABS: BASOPHILS ABSOLUTE AUTO 0.07 K/uL (0.00-0.20); BASOPHILS PERCENT AUTO 0.6 % (0.0-1.0); EOSINOPHILS ABSOLUTE AUTO 0.01 K/uL (0.00-0.45); EOSINOPHILS PERCENT AUTO 0.1 % (0.0-6.0); HEMATOCRIT 38.8 % (37.0-47.0); HEMOGLOBIN 12.2 g/dL (12.0-16.0); IMMATURE GRAN ABSOLUTE AUTO 0.05 K/uL (0.00-0.05); IMMATURE GRAN PERCENT AUTO 0.4 % (0.0-0.4); LYMPHOCYTES PERCENT AUTO 19.3 % (24.0-44.0); MEAN CORPUSCULAR HEMOGLOBIN 24.7 pg (28.0-32.0); MEAN CORPUSCULAR HGB CONC 31.4 g/dL (32.0-36.0); MEAN CORPUSCULAR VOLUME 78.5 fL (83.0-99.0); MEAN PLATELET VOLUME 10.6 fL (9.4-12.3); MONOCYTES ABSOLUTE AUTO 0.99 K/uL (0.00-0.80); NEUTROPHILS ABSOLUTE AUTO 8.91 K/uL (1.80-7.70); NEUTROPHILS PERCENT AUTO 71.6 % (41.0-71.0); PLATELET COUNT,PLT 374 K/uL (150-400); RED BLOOD CELL COUNT 4.94 M/uL (4.10-5.30); WHITE BLOOD CELL COUNT,WBC 12.43 K/uL (3.9-11.3)
[2024-03-16 18:42] LABS: A/G RATIO 0.7 (0.9-1.6); ALBUMIN 4.1 g/dL (3.4-5.0); BILIRUBIN TOTAL 0.9 mg/dL (0.2-1.0); CALCIUM 9.8 mg/dL (8.5-10.1); CREATININE 1.1 mg/dL (0.6-1.0); EST CRCL DRUG DOSING (CG) 66.06 mL/min; POTASSIUM,K 4.1 mmol/L (3.5-5.1)
[2024-03-16] MEDS: Ketorolac 30 MG/ML SDV IVPUSH ONE (18:48)
[2024-03-16] MEDS: Iopamidol 755 MG/ML 500 ML Multipack Bottle IVPUSH STA (19:02)
[2024-03-16] MEDS: traMADol 50 MG Tab PO ONE (20:19)
[2024-03-16] MEDS: Nitrofurantoin Monohydrate/Macrocrystalline 100 MG Cap PO ONE (20:19)
== END 2024-03-16 21:09 | disposition home or self-care (01) ==
LOC: MW.ED 16:19
DX: N39.0 Urinary tract infection, site not specified (principal); Z79.899 Other long term (current) drug therapy; Z75.8 Other problems related to medical facilities and other health care
CPT/HCPCS: 36415; 74177; 80053; 81001; 83690; 85025; 87045; 87046; 87086; 87324; 87428; 87449; 87899; 96361; 96374; 99284; A9270; J1885; J7030; Q9967; 87088; 87186

== ENCOUNTER 2024-08-08 14:41 | Emergency (ER) | payer BC ==
[2024-08-08] MEDS ORDERED: Sodium Chloride 0.9% 10 ML Syringe FLUSH PRN (16:54)
[2024-08-08] MEDS ORDERED: Sodium Chloride 0.9% 2.5 ML Syringe FLUSH PRN (16:54)
[2024-08-08 17:12] LABS: BILIRUBIN,URINE NEGATIVE (NEGATIVE); COLOR,URINE YELLOW; GLUCOSE,URINE NEGATIVE (NEGATIVE); KETONES,URINE >=80 mg/dL (NEGATIVE); LEUKOCYTE ESTERASE,URINE TRACE (NEGATIVE); NITRITE,URINE POSITIVE (NEGATIVE); OCCULT BLOOD,URINE TRACE-LYSED (NEGATIVE); PROTEIN,URINE NEGATIVE (NEGATIVE); UROBILINOGEN,URINE 0.2 EU/dL (<2.0)
[2024-08-08 17:21] LABS: BASOPHILS ABSOLUTE AUTO 0.03 K/uL (0.00-0.20); BASOPHILS PERCENT AUTO 0.3 % (0.0-1.0); EOSINOPHILS ABSOLUTE AUTO 0.01 K/uL (0.00-0.45); EOSINOPHILS PERCENT AUTO 0.1 % (0.0-6.0); HEMATOCRIT 36.7 % (37.0-47.0); IMMATURE GRAN ABSOLUTE AUTO 0.03 K/uL (0.00-0.05); IMMATURE GRAN PERCENT AUTO 0.3 % (0.0-0.4); LYMPHOCYTES ABSOLUTE AUTO 1.67 K/uL (1.00-4.80); LYMPHOCYTES PERCENT AUTO 17.2 % (24.0-44.0); MEAN CORPUSCULAR HEMOGLOBIN 25.5 pg (28.0-32.0); MEAN CORPUSCULAR HGB CONC 32.7 g/dL (32.0-36.0); MEAN CORPUSCULAR VOLUME 78.1 fL (83.0-99.0); MEAN PLATELET VOLUME 10.5 fL (9.4-12.3); MONOCYTES ABSOLUTE AUTO 0.92 K/uL (0.00-0.80); MONOCYTES PERCENT AUTO 9.5 % (0.0-8.0); NEUTROPHILS ABSOLUTE AUTO 7.04 K/uL (1.80-7.70); NEUTROPHILS PERCENT AUTO 72.6 % (41.0-71.0); PLATELET COUNT,PLT 335 K/uL (150-400)
[2024-08-08] MEDS: Sodium Chloride 0.9% 1,000 ML IV ONE (17:22)
[2024-08-08 17:26] LABS: APPEARANCE,URINE HAZY
[2024-08-08 17:27] LABS: BACTERIA,URINE 4+ (NEGATIVE); EPITHELIAL CELLS,URINE FEW (NONE-FEW); RBC,URINE 0-2 (0-2/HPF); WBC,URINE 30-40 (0-5/HPF)
[2024-08-08 17:47] LABS: A/G RATIO 0.8 (0.9-1.6); ALBUMIN 4.1 g/dL (3.4-5.0); BILIRUBIN TOTAL 0.5 mg/dL (0.2-1.0); CALCIUM 9.2 mg/dL (8.5-10.1); CARBON DIOXIDE,CO2 23.7 mmol/L (21.0-32.0); CREATININE 1.2 mg/dL (0.6-1.0); EST CRCL DRUG DOSING (CG) 58.66 mL/min; POTASSIUM,K 3.7 mmol/L (3.5-5.1); PROTEIN TOTAL,TP 9.1 g/dL (6.4-8.2)
[2024-08-08 17:50] LABS: LACTIC ACID 1.3 mmol/L (0.4-2.0)
[2024-08-08] MEDS: Acetaminophen 500 MG Tab PO ONE (19:10)
[2024-08-08] MEDS ORDERED: Naloxone 0.4 MG/ML SDV IVPUSH PRN (20:40)
[2024-08-08] MEDS ORDERED: cefTRIAXone 2 GM in Sodium Chloride 0.9% 100 ML IV ONE (20:43)
[2024-08-08] MEDS: Iopamidol 755 MG/ML 500 ML Multipack Bottle IVPUSH ONE (21:03)
[2024-08-08] MEDS: cefTRIAXone 2 GM in Water For Injection, Sterile 20 ML IVPUSH ONE (21:12)
[2024-08-08] MEDS: Morphine 2 MG/ML SYRINGE IVPUSH ONE (21:12)
== END 2024-08-08 22:49 | disposition home or self-care (01) ==
LOC: MW.ED 14:41
DX: N12 Tubulo-interstitial nephritis, not specified as acute or chronic (principal)
CPT/HCPCS: 36415; 71045; 74177; 80053; 81001; 83605; 85025; 87040; 96361; 96374; 96375; 99284; A9270; J0696; J2270; J7030; Q9967

== ENCOUNTER 2024-10-15 15:36 | Emergency (ER) | payer BC ==
[2024-10-15 16:12] LABS: APPEARANCE,URINE CLEAR; GLUCOSE,URINE NEGATIVE (NEGATIVE); OCCULT BLOOD,URINE NEGATIVE (NEGATIVE)
[2024-10-15 16:19] LABS: EPITHELIAL CELLS,URINE RARE (NONE-FEW)
[2024-10-15] MEDS: Ondansetron 4 MG/2 ML SDV IVPUSH ONE (18:12)
[2024-10-15 18:19] LABS: BASOPHILS ABSOLUTE AUTO 0.05 K/uL (0.00-0.20); BASOPHILS PERCENT AUTO 0.6 % (0.0-1.0); EOSINOPHILS ABSOLUTE AUTO 0.06 K/uL (0.00-0.45); EOSINOPHILS PERCENT AUTO 0.7 % (0.0-6.0); IMMATURE GRAN ABSOLUTE AUTO 0.03 K/uL (0.00-0.05); IMMATURE GRAN PERCENT AUTO 0.4 % (0.0-0.4); LYMPHOCYTES ABSOLUTE AUTO 2.00 K/uL (1.00-4.80); LYMPHOCYTES PERCENT AUTO 23.8 % (24.0-44.0); MEAN PLATELET VOLUME 10.5 fL (9.4-12.3); MONOCYTES ABSOLUTE AUTO 1.11 K/uL (0.00-0.80); MONOCYTES PERCENT AUTO 13.2 % (0.0-8.0); NEUTROPHILS ABSOLUTE AUTO 5.15 K/uL (1.80-7.70); NEUTROPHILS PERCENT AUTO 61.3 % (41.0-71.0); NRBC ABSOLUTE 0.00 K/uL (0.00-0.02); NRBC PERCENT 0.0 /100WBC (0.0-0.2); PLATELET COUNT,PLT 333 K/uL (150-400); RED BLOOD CELL COUNT 4.59 M/uL (4.10-5.30); WHITE BLOOD CELL COUNT,WBC 8.40 K/uL (3.9-11.3)
[2024-10-15 18:45] LABS: A/G RATIO 0.7 (0.9-1.6); ALANINE AMINOTRANSFERASE,ALT 22.0 IU/L (14-63); ASPARTATE AMNIOTRANSFERASE,AST 19.0 IU/L (15-37); BILIRUBIN TOTAL 0.3 mg/dL (0.2-1.0); BLOOD UREA NITROGEN,BUN 8.0 mg/dL (7.0-18.0); CARBON DIOXIDE,CO2 24.8 mmol/L (21.0-32.0); CHLORIDE,CL 101.0 mmol/L (98-107); CREATININE 1.1 mg/dL (0.6-1.0); EST CRCL DRUG DOSING (CG) 66.59 mL/min; GLUCOSE RANDOM 95.0 mg/dL (74-106); POTASSIUM,K 3.7 mmol/L (3.5-5.1); PROTEIN TOTAL,TP 8.9 g/dL (6.4-8.2); SODIUM,NA 137.0 mmol/L (136-145)
[2024-10-15 18:49] LABS: LACTIC ACID 0.6 mmol/L (0.4-2.0)
[2024-10-15] MEDS: cefTRIAXone 1 GM in Water For Injection, Sterile 10 ML IVPUSH ONE (18:53)
[2024-10-15 18:54] LABS: ESTIMATED GFR 71.0 mL/min (>60)
== END 2024-10-15 19:40 | disposition home or self-care (01) ==
LOC: MW.ED 15:36
DX: N12 Tubulo-interstitial nephritis, not specified as acute or chronic (principal); Z79.899 Other long term (current) drug therapy; Z75.3 Unavailability and inaccessibility of health-care facilities
CPT/HCPCS: 36415; 80053; 81001; 83605; 83690; 83735; 85025; 96361; 96374; 96375; 96376; 99284; J0696; J2270; J2405; J7030; 99283

== ENCOUNTER 2025-01-05 13:43 | Inpatient (IN) | payer BC ==
[2025-01-05 14:16] LABS: GLUCOSE,URINE NEGATIVE (NEGATIVE); OCCULT BLOOD,URINE SMALL (NEGATIVE)
[2025-01-05 14:18] LABS: APPEARANCE,URINE HAZY
[2025-01-05 14:26] LABS: BASOPHILS ABSOLUTE AUTO 0.03 K/uL (0.00-0.20); BASOPHILS PERCENT AUTO 0.2 % (0.0-1.0); EOSINOPHILS ABSOLUTE AUTO 0.01 K/uL (0.00-0.45); EOSINOPHILS PERCENT AUTO 0.1 % (0.0-6.0); IMMATURE GRAN ABSOLUTE AUTO 0.04 K/uL (0.00-0.05); IMMATURE GRAN PERCENT AUTO 0.3 % (0.0-0.4); LYMPHOCYTES ABSOLUTE AUTO 1.02 K/uL (1.00-4.80); LYMPHOCYTES PERCENT AUTO 8.2 % (24.0-44.0); MEAN PLATELET VOLUME 10.0 fL (9.4-12.3); MONOCYTES ABSOLUTE AUTO 1.05 K/uL (0.00-0.80); MONOCYTES PERCENT AUTO 8.5 % (0.0-8.0); NEUTROPHILS ABSOLUTE AUTO 10.22 K/uL (1.80-7.70); NEUTROPHILS PERCENT AUTO 82.7 % (41.0-71.0); NRBC ABSOLUTE 0.00 K/uL (0.00-0.02); NRBC PERCENT 0.0 /100WBC (0.0-0.2); PLATELET COUNT,PLT 304 K/uL (150-400); RED BLOOD CELL COUNT 4.84 M/uL (4.10-5.30); WHITE BLOOD CELL COUNT,WBC 12.37 K/uL (3.9-11.3)
[2025-01-05] MEDS: Ketorolac 30 MG/ML SDV IVPUSH ONE (14:32)
[2025-01-05] MEDS: Ondansetron 4 MG/2 ML SDV IVPUSH ONE (14:32)
[2025-01-05 14:58] LABS: A/G RATIO 0.9 (0.9-1.6); ALANINE AMINOTRANSFERASE,ALT 26.0 IU/L (14-63); ASPARTATE AMNIOTRANSFERASE,AST 20.0 IU/L (15-37); BILIRUBIN TOTAL 1.1 mg/dL (0.2-1.0); BLOOD UREA NITROGEN,BUN 13.0 mg/dL (7.0-18.0); CARBON DIOXIDE,CO2 20.6 mmol/L (21.0-32.0); CHLORIDE,CL 100.0 mmol/L (98-107); CREATININE 1.1 mg/dL (0.6-1.0); EST CRCL DRUG DOSING (CG) 68.64 mL/min; GLUCOSE RANDOM 88.0 mg/dL (74-106); POTASSIUM,K 3.3 mmol/L (3.5-5.1); PROTEIN TOTAL,TP 9.3 g/dL (6.4-8.2); SODIUM,NA 134.0 mmol/L (136-145)
[2025-01-05 15:02] LABS: ESTIMATED GFR 71.0 mL/min (>60)
[2025-01-05] MEDS: Iopamidol 755 MG/ML 500 ML Multipack Bottle IVPUSH STA (15:19)
[2025-01-05] MEDS: metroNIDAZOLE/Normal Saline 500 MG in Premix Bag 1 BAG IV ONE (16:13)
[2025-01-05] MEDS: Ondansetron 4 MG/2 ML SDV IVPUSH STA (17:21)
[2025-01-05] MEDS: Ciprofloxacin in D5W 400 MG in Premix Bag 1 BAG IV SCH (17:41)
[2025-01-05] MEDS ORDERED: Sodium Chloride 0.9% 2.5 ML Syringe FLUSH PRN (18:13)
[2025-01-05] MEDS ORDERED: Sodium Chloride 0.9% 10 ML Syringe FLUSH PRN (18:13)
[2025-01-05] MEDS: Ondansetron 4 MG/2 ML SDV IVPUSH PRN (19:56)
[2025-01-05] MEDS ORDERED: Naloxone 0.4 MG/ML SDV IVPUSH PRN (20:32)
[2025-01-06] MEDS ORDERED: metroNIDAZOLE/Normal Saline 500 MG in Premix Bag 1 BAG IV SCH (04:00)
[2025-01-06] MEDS ORDERED: Ciprofloxacin in D5W 400 MG in Premix Bag 1 BAG IV SCH (06:00)
[2025-01-06 06:28] LABS: BASOPHILS ABSOLUTE AUTO 0.03 K/uL (0.00-0.20); BASOPHILS PERCENT AUTO 0.2 % (0.0-1.0); EOSINOPHILS ABSOLUTE AUTO 0.00 K/uL (0.00-0.45); EOSINOPHILS PERCENT AUTO 0.0 % (0.0-6.0); IMMATURE GRAN ABSOLUTE AUTO 0.08 K/uL (0.00-0.05); IMMATURE GRAN PERCENT AUTO 0.6 % (0.0-0.4); LYMPHOCYTES ABSOLUTE AUTO 1.37 K/uL (1.00-4.80); LYMPHOCYTES PERCENT AUTO 10.7 % (24.0-44.0); MEAN PLATELET VOLUME 10.2 fL (9.4-12.3); MONOCYTES ABSOLUTE AUTO 1.23 K/uL (0.00-0.80); MONOCYTES PERCENT AUTO 9.6 % (0.0-8.0); NEUTROPHILS ABSOLUTE AUTO 10.08 K/uL (1.80-7.70); NEUTROPHILS PERCENT AUTO 78.9 % (41.0-71.0); NRBC ABSOLUTE 0.00 K/uL (0.00-0.02); NRBC PERCENT 0.0 /100WBC (0.0-0.2); PLATELET COUNT,PLT 215 K/uL (150-400); RED BLOOD CELL COUNT 3.98 M/uL (4.10-5.30); WHITE BLOOD CELL COUNT,WBC 12.79 K/uL (3.9-11.3)
[2025-01-06 07:09] LABS: A/G RATIO 0.8 (0.9-1.6); ALANINE AMINOTRANSFERASE,ALT 16.0 IU/L (14-63); ASPARTATE AMNIOTRANSFERASE,AST 16.0 IU/L (15-37); BILIRUBIN TOTAL 0.5 mg/dL (0.2-1.0); BLOOD UREA NITROGEN,BUN 6.0 mg/dL (7.0-18.0); CARBON DIOXIDE,CO2 17.9 mmol/L (21.0-32.0); CHLORIDE,CL 103.0 mmol/L (98-107); CREATININE 1.1 mg/dL (0.6-1.0); EST CRCL DRUG DOSING (CG) 69.74 mL/min; GLUCOSE RANDOM 114.0 mg/dL (74-106); PHOSPHORUS 1.4 mg/dL (2.6-4.7); POTASSIUM,K 3.5 mmol/L (3.5-5.1); PROTEIN TOTAL,TP 7.0 g/dL (6.4-8.2); SODIUM,NA 131.0 mmol/L (136-145)
[2025-01-06 07:10] LABS: ESTIMATED GFR 71.0 mL/min (>60)
[2025-01-06] MEDS: Iopamidol 755 MG/ML 500 ML Multipack Bottle IVPUSH STA (11:33)
[2025-01-06] MEDS: Magnesium Sulfate 4 GM/100 mL 4 GM in Premix Bag 1 BAG IV ONE (11:49)
[2025-01-06] MEDS: Phosphorus #1 250 MG Tab PO SCH (12:03)
[2025-01-07 05:25] LABS: MEAN PLATELET VOLUME 10.3 fL (9.4-12.3); NRBC ABSOLUTE 0.00 K/uL (0.00-0.02); NRBC PERCENT 0.0 /100WBC (0.0-0.2); PLATELET COUNT,PLT 185 K/uL (150-400); RED BLOOD CELL COUNT 3.45 M/uL (4.10-5.30); WHITE BLOOD CELL COUNT,WBC 10.80 K/uL (3.9-11.3)
[2025-01-07 05:44] LABS: LYMPHOCYTES ABSOLUTE MAN 1.94 K/uL (1.00-4.80); LYMPHOCYTES PERCENT MAN 18 % (24-44); SEG NEUTROPHILS ABSOLUTE MAN 7.45 K/uL (1.80-7.70); SEG NEUTROPHILS PERCENT MAN 69 % (41-71)
[2025-01-07 05:45] LABS: MONOCYTES ABSOLUTE MAN 1.40 K/uL (0.00-0.80); MONOCYTES PERCENT MAN 13 % (0-8)
[2025-01-07 05:51] LABS: A/G RATIO 0.7 (0.9-1.6); ALANINE AMINOTRANSFERASE,ALT 14.0 IU/L (14-63); ASPARTATE AMNIOTRANSFERASE,AST 16.0 IU/L (15-37); BILIRUBIN TOTAL 0.4 mg/dL (0.2-1.0); BLOOD UREA NITROGEN,BUN 3.0 mg/dL (7.0-18.0); CARBON DIOXIDE,CO2 20.4 mmol/L (21.0-32.0); CHLORIDE,CL 108.0 mmol/L (98-107); CREATININE 0.8 mg/dL (0.6-1.0); EST CRCL DRUG DOSING (CG) 95.89 mL/min; GLUCOSE RANDOM 109.0 mg/dL (74-106); PHOSPHORUS 1.7 mg/dL (2.6-4.7); POTASSIUM,K 3.5 mmol/L (3.5-5.1); PROTEIN TOTAL,TP 6.3 g/dL (6.4-8.2); SODIUM,NA 137.0 mmol/L (136-145)
[2025-01-07 06:11] LABS: ESTIMATED GFR 104.0 mL/min (>60)
[2025-01-07] MEDS: Magnesium Sulfate 2 GM/50 mL 2 GM in Premix Bag 1 BAG IV ONE (10:42)
[2025-01-07] MEDS: Phosphorus #1 250 MG Tab PO SCH (11:56)
[2025-01-08 05:44] LABS: BASOPHILS ABSOLUTE AUTO 0.04 K/uL (0.00-0.20); BASOPHILS PERCENT AUTO 0.5 % (0.0-1.0); EOSINOPHILS ABSOLUTE AUTO 0.07 K/uL (0.00-0.45); EOSINOPHILS PERCENT AUTO 0.8 % (0.0-6.0); IMMATURE GRAN ABSOLUTE AUTO 0.02 K/uL (0.00-0.05); IMMATURE GRAN PERCENT AUTO 0.2 % (0.0-0.4); LYMPHOCYTES ABSOLUTE AUTO 2.25 K/uL (1.00-4.80); LYMPHOCYTES PERCENT AUTO 26.8 % (24.0-44.0); MEAN PLATELET VOLUME 10.5 fL (9.4-12.3); MONOCYTES ABSOLUTE AUTO 1.02 K/uL (0.00-0.80); MONOCYTES PERCENT AUTO 12.1 % (0.0-8.0); NEUTROPHILS ABSOLUTE AUTO 5.01 K/uL (1.80-7.70); NEUTROPHILS PERCENT AUTO 59.6 % (41.0-71.0); NRBC ABSOLUTE 0.00 K/uL (0.00-0.02); NRBC PERCENT 0.0 /100WBC (0.0-0.2); PLATELET COUNT,PLT 207 K/uL (150-400); RED BLOOD CELL COUNT 3.41 M/uL (4.10-5.30); WHITE BLOOD CELL COUNT,WBC 8.41 K/uL (3.9-11.3)
[2025-01-08 06:06] LABS: BLOOD UREA NITROGEN,BUN 3.0 mg/dL (7.0-18.0); CARBON DIOXIDE,CO2 22.2 mmol/L (21.0-32.0); CHLORIDE,CL 108.0 mmol/L (98-107); CREATININE 0.8 mg/dL (0.6-1.0); EST CRCL DRUG DOSING (CG) 95.89 mL/min; GLUCOSE RANDOM 81.0 mg/dL (74-106); PHOSPHORUS 2.9 mg/dL (2.6-4.7); POTASSIUM,K 3.7 mmol/L (3.5-5.1); SODIUM,NA 137.0 mmol/L (136-145)
[2025-01-08 06:21] LABS: ESTIMATED GFR 104.0 mL/min (>60)
[2025-01-08 09:31] LABS: IRON,FE 17.0 ug/dL (50-175); PERCENT FE SATURATION 6.37 % (20-55)
[2025-01-08] MEDS: Magnesium Sulfate 4 GM/100 mL 4 GM in Premix Bag 1 BAG IV ONE (10:27)
[2025-01-08] MEDS: Sodium Ferric Gluconate Cmplex 125 MG in Sodium Chloride 0.9% 100 ML IV SCH (14:56)
[2025-01-09 05:41] LABS: BASOPHILS ABSOLUTE AUTO 0.03 K/uL (0.00-0.20); BASOPHILS PERCENT AUTO 0.5 % (0.0-1.0); EOSINOPHILS ABSOLUTE AUTO 0.16 K/uL (0.00-0.45); EOSINOPHILS PERCENT AUTO 2.5 % (0.0-6.0); IMMATURE GRAN ABSOLUTE AUTO 0.02 K/uL (0.00-0.05); IMMATURE GRAN PERCENT AUTO 0.3 % (0.0-0.4); LYMPHOCYTES ABSOLUTE AUTO 1.73 K/uL (1.00-4.80); LYMPHOCYTES PERCENT AUTO 27.1 % (24.0-44.0); MEAN PLATELET VOLUME 10.2 fL (9.4-12.3); MONOCYTES ABSOLUTE AUTO 0.70 K/uL (0.00-0.80); MONOCYTES PERCENT AUTO 11.0 % (0.0-8.0); NEUTROPHILS ABSOLUTE AUTO 3.74 K/uL (1.80-7.70); NEUTROPHILS PERCENT AUTO 58.6 % (41.0-71.0); NRBC ABSOLUTE 0.00 K/uL (0.00-0.02); NRBC PERCENT 0.0 /100WBC (0.0-0.2); PLATELET COUNT,PLT 281 K/uL (150-400); RED BLOOD CELL COUNT 3.71 M/uL (4.10-5.30); WHITE BLOOD CELL COUNT,WBC 6.38 K/uL (3.9-11.3)
[2025-01-09 06:11] LABS: A/G RATIO 0.6 (0.9-1.6); ALANINE AMINOTRANSFERASE,ALT 16.0 IU/L (14-63); ASPARTATE AMNIOTRANSFERASE,AST 13.0 IU/L (15-37); BILIRUBIN TOTAL 0.3 mg/dL (0.2-1.0); BLOOD UREA NITROGEN,BUN 4.0 mg/dL (7.0-18.0); CARBON DIOXIDE,CO2 22.9 mmol/L (21.0-32.0); CHLORIDE,CL 107.0 mmol/L (98-107); CREATININE 0.8 mg/dL (0.6-1.0); EST CRCL DRUG DOSING (CG) 95.89 mL/min; GLUCOSE RANDOM 79.0 mg/dL (74-106); PHOSPHORUS 3.2 mg/dL (2.6-4.7); POTASSIUM,K 3.8 mmol/L (3.5-5.1); PROTEIN TOTAL,TP 6.8 g/dL (6.4-8.2); SODIUM,NA 139.0 mmol/L (136-145)
[2025-01-09 06:14] LABS: ESTIMATED GFR 104.0 mL/min (>60)
[2025-01-09] MEDS ORDERED: Magnesium Sulfate 4 GM/100 mL 4 GM in Premix Bag 1 BAG IV ONE (09:00)
[2025-01-09] MEDS: Magnesium Sulfate 2 GM/50 mL 2 GM in Premix Bag 1 BAG IV ONE (09:08)
[2025-01-09 11:37] LABS: APPEARANCE,URINE HAZY; GLUCOSE,URINE NEGATIVE (NEGATIVE); OCCULT BLOOD,URINE LARGE (NEGATIVE)
[2025-01-09 11:38] LABS: SQUAMOUS EPITHELIAL CELLS,UR FEW
[2025-01-10 06:16] LABS: BASOPHILS ABSOLUTE AUTO 0.05 K/uL (0.00-0.20); BASOPHILS PERCENT AUTO 0.9 % (0.0-1.0); EOSINOPHILS ABSOLUTE AUTO 0.21 K/uL (0.00-0.45); EOSINOPHILS PERCENT AUTO 3.9 % (0.0-6.0); IMMATURE GRAN ABSOLUTE AUTO 0.03 K/uL (0.00-0.05); IMMATURE GRAN PERCENT AUTO 0.6 % (0.0-0.4); LYMPHOCYTES ABSOLUTE AUTO 2.18 K/uL (1.00-4.80); LYMPHOCYTES PERCENT AUTO 40.7 % (24.0-44.0); MEAN PLATELET VOLUME 10.3 fL (9.4-12.3); MONOCYTES ABSOLUTE AUTO 0.59 K/uL (0.00-0.80); MONOCYTES PERCENT AUTO 11.0 % (0.0-8.0); NEUTROPHILS ABSOLUTE AUTO 2.30 K/uL (1.80-7.70); NEUTROPHILS PERCENT AUTO 42.9 % (41.0-71.0); NRBC ABSOLUTE 0.00 K/uL (0.00-0.02); NRBC PERCENT 0.0 /100WBC (0.0-0.2); PLATELET COUNT,PLT 309 K/uL (150-400); RED BLOOD CELL COUNT 3.72 M/uL (4.10-5.30); WHITE BLOOD CELL COUNT,WBC 5.36 K/uL (3.9-11.3)
[2025-01-10 06:47] LABS: A/G RATIO 0.7 (0.9-1.6); ALANINE AMINOTRANSFERASE,ALT 13.0 IU/L (14-63); ASPARTATE AMNIOTRANSFERASE,AST 11.0 IU/L (15-37); BILIRUBIN TOTAL 0.2 mg/dL (0.2-1.0); BLOOD UREA NITROGEN,BUN 5.0 mg/dL (7.0-18.0); CARBON DIOXIDE,CO2 22.2 mmol/L (21.0-32.0); CHLORIDE,CL 105.0 mmol/L (98-107); CREATININE 0.8 mg/dL (0.6-1.0); EST CRCL DRUG DOSING (CG) 95.89 mL/min; GLUCOSE RANDOM 80.0 mg/dL (74-106); PHOSPHORUS 3.5 mg/dL (2.6-4.7); POTASSIUM,K 3.9 mmol/L (3.5-5.1); PROTEIN TOTAL,TP 6.7 g/dL (6.4-8.2); SODIUM,NA 137.0 mmol/L (136-145)
[2025-01-10 06:56] LABS: ESTIMATED GFR 104.0 mL/min (>60)
[2025-01-10] MEDS: Magnesium Sulfate 4 GM/100 mL 4 GM in Premix Bag 1 BAG IV ONE (08:57)
[2025-01-10] MEDS: Acetaminophen/HYDROcodone 325-5 MG Tab PO PRN (22:45)
[2025-01-11 06:41] LABS: BASOPHILS ABSOLUTE AUTO 0.05 K/uL (0.00-0.20); BASOPHILS PERCENT AUTO 0.8 % (0.0-1.0); EOSINOPHILS ABSOLUTE AUTO 0.20 K/uL (0.00-0.45); EOSINOPHILS PERCENT AUTO 3.4 % (0.0-6.0); IMMATURE GRAN ABSOLUTE AUTO 0.07 K/uL (0.00-0.05); IMMATURE GRAN PERCENT AUTO 1.2 % (0.0-0.4); LYMPHOCYTES ABSOLUTE AUTO 2.71 K/uL (1.00-4.80); LYMPHOCYTES PERCENT AUTO 45.8 % (24.0-44.0); MEAN PLATELET VOLUME 10.4 fL (9.4-12.3); MONOCYTES ABSOLUTE AUTO 0.68 K/uL (0.00-0.80); MONOCYTES PERCENT AUTO 11.5 % (0.0-8.0); NEUTROPHILS ABSOLUTE AUTO 2.21 K/uL (1.80-7.70); NEUTROPHILS PERCENT AUTO 37.3 % (41.0-71.0); NRBC ABSOLUTE 0.03 K/uL (0.00-0.02); NRBC PERCENT 0.5 /100WBC (0.0-0.2); PLATELET COUNT,PLT 356 K/uL (150-400); RED BLOOD CELL COUNT 3.92 M/uL (4.10-5.30); WHITE BLOOD CELL COUNT,WBC 5.92 K/uL (3.9-11.3)
[2025-01-11 07:08] LABS: A/G RATIO 0.6 (0.9-1.6); ALANINE AMINOTRANSFERASE,ALT 9.0 IU/L (14-63); ASPARTATE AMNIOTRANSFERASE,AST 11.0 IU/L (15-37); BILIRUBIN TOTAL 0.1 mg/dL (0.2-1.0); BLOOD UREA NITROGEN,BUN 9.0 mg/dL (7.0-18.0); CARBON DIOXIDE,CO2 22.7 mmol/L (21.0-32.0); CHLORIDE,CL 109.0 mmol/L (98-107); CREATININE 0.9 mg/dL (0.6-1.0); EST CRCL DRUG DOSING (CG) 85.24 mL/min; GLUCOSE RANDOM 101.0 mg/dL (74-106); PHOSPHORUS 4.5 mg/dL (2.6-4.7); POTASSIUM,K 4.0 mmol/L (3.5-5.1); PROTEIN TOTAL,TP 6.5 g/dL (6.4-8.2); SODIUM,NA 140.0 mmol/L (136-145)
[2025-01-11 07:11] LABS: ESTIMATED GFR 90.0 mL/min (>60)
== END 2025-01-11 19:00 | disposition home or self-care (01) | DRG 254 ==
LOC: MW.ED 13:43 → MW.MS 18:13
PROVIDERS: ADMIT Family Medicine; ATTEND Family Medicine
DX: K91.850 Pouchitis (principal); E83.39 Other disorders of phosphorus metabolism; N12 Tubulo-interstitial nephritis, not specified as acute or chronic; R51.9 Headache, unspecified; E87.6 Hypokalemia; E83.42 Hypomagnesemia; D50.9 Iron deficiency anemia, unspecified; Z90.49 Acquired absence of other specified parts of digestive tract; Z87.442 Personal history of urinary calculi; Z93.2 Ileostomy status; Z87.440 Personal history of urinary (tract) infections; Z79.899 Other long term (current) drug therapy
CPT/HCPCS: 36415; 74176; 74176-26; 74177; 74177-26; 80048; 80053; 81001; 81025; 83550; 83605; 83690; 83735; 84100; 85025; 86140; 87040; 87045; 87046; 87086; 87324; 87449; 87899; 93005; 93010; 99285; A9270-GY; J0744; J1171; J1836; J1885; J2270; J2405; J2543; J2916; J3475; J3480; J7030; Q9967